=== PATIENT | female | born 1955 | race Caucasian/White ===

== ENCOUNTER → 2017-05-19 | Outpatient (CLI) | payer BC ==
--- NOTE | 2017-05-19 15:24 | US ---
EXAMINATION TYPE: US kidneys/renal and bladder DATE OF EXAM: 05/19/2017 COMPARISON: 05/21/2016 CLINICAL HISTORY: Renal Colic N23. Rt flank pain, h/o ARF EXAM MEASUREMENTS: Right Kidney: 8.3 x 4.0 x 4.2 cm Left Kidney: 8.3 x 4.4 x 5.9 cm *body habitus and bowel gas limits exam Right Kidney: small in size, no hydronephrosis or masses seen Left Kidney: small in size, no hydronephrosis or masses seen Bladder: wnl Bilateral Jets seen: yes Previous right renal cyst is not identified at this time. IMPRESSION: 1. Normal retroperitoneal ultrasound
== END | disposition home or self-care (01) ==
LOC: RADUSWWP 11:27
PROVIDERS: ATTEND Internal Medicine Nephrology
DX: N23 Unspecified renal colic (principal)
CPT/HCPCS: 76770

== ENCOUNTER 2017-06-29 03:48 | Emergency (ER) | payer BC ==
[2017-06-29 03:55] VITALS: RESP 18
[2017-06-29] MEDS ORDERED: ORPHENADRINE 30 MG/ML 2 ML VIAL IM STA (05:12)
[2017-06-29 05:48] LABS: Anisocytosis Slight; Basophils % (A) 0 %; CH 29.7; CHCM 33.4; Eosinophils # (A) 0.2 k/uL (0-0.7); Eosinophils % (A) 2 %; HCT 34.3 % (34.0-46.0); HGB 11.3 gm/dL (11.4-16.0); Luc # (Auto) 0.13; Luc % (Auto) 1; Lymphocytes # (A) 1.4 k/uL (1.0-4.8); Lymphocytes % (A) 14 %; MCH 29.5 pg (25.0-35.0); MCHC 33.1 g/dL (31.0-37.0); MCV 89.1 fL (80.0-100.0); Mean Platelet Volume 8.7; Monocytes # (A) 0.8 k/uL (0-1.0); Monocytes % (A) 8 %; Neutrophils # (A) 7.4 k/uL (1.3-7.7); Neutrophils % (A) 75 %; RBC 3.85 m/uL (3.80-5.40); RDW 16.2 % (11.5-15.5); WBC 9.9 k/uL (3.8-10.6); WBC (Perox) 10.52
[2017-06-29 06:14] LABS: Calcium 8.8 mg/dL (8.4-10.2); Magnesium 1.3 mg/dL (1.6-2.3); Potassium 4.1 mmol/L (3.5-5.1)
[2017-06-29] MEDS ORDERED: MAGNESIUM SULFATE-D5W PMX 1 GM in DEXTROSE/WATER 1 100ML.BAG IVPB ONE (06:30)
--- NOTE | 2017-06-29 07:54 | ED ---
Back Pain HPI - General Chief Complaint: Back Pain/Injury Stated Complaint: lower back pain Time Seen by Provider: 06/29/17 04:13 Source: patient Limitations: no limitations - History of Present Illness MD Complaint: back pain -: hour(s) Similar Symptoms Previously: Yes Place: home Radiation: none Severity: moderate Quality: other Consistency: intermittent (Spasms) Improves With: immobilization Worsens With: movement Context: turning/twisting, bending Associated Symptoms: denies other symptoms - Related Data Home Medications Medication Instructions Recorded Confirmed Atorvastatin [Lipitor] 40 mg PO HS 06/01/14 07/13/17 Insulin Aspart [NovoLOG] See Protocol SQ-PUMP CONTINUOUS 05/27/15 07/13/17 Furosemide [Lasix] 40 mg PO DAILY 04/08/16 07/13/17 Magnesium Oxide [Mag-Ox] 400 mg PO QAM 04/08/16 07/13/17 Potassium Chloride ER [K-Dur 10] 10 meq PO DAILY PRN 04/08/16 07/13/17 amLODIPine [Norvasc] 5 mg PO QAM 07/06/16 07/13/17 Ergocalciferol (Vitamin D2) 50,000 unit PO Q30D 07/13/16 07/13/17 [Drisdol] Warfarin Sodium [Warfarin Sodium] 6 mg PO SUMOTUWEFRSA 07/13/17 07/13/17 Warfarin Sodium [Warfarin Sodium] 8 mg PO TH 07/13/17 07/13/17 Allergies Allergy/AdvReac Type Severity Reaction Status Date / Time azithromycin Allergy Unknown Rash/Hives Verified 07/13/17 11:06 amoxicillin Allergy Rash/Hives Verified 07/13/17 11:06 Review of Systems ROS Statement: Those systems with pertinent positive or pertinent negative responses have been documented in the HPI. ROS Other: All systems not noted in ROS Statement are negative. Constitutional: Denies: fever, chills, weakness Respiratory: Denies: cough, dyspnea Cardiovascular: Denies: chest pain Gastrointestinal: Denies: abdominal pain, nausea, vomiting, diarrhea, constipation Genitourinary: Denies: dysuria, hematuria Musculoskeletal: Reports: as per HPI, back pain, myalgia. Denies: joint swelling, arthralgia Skin: Denies: rash Neurological: Denies: weakness, numbness, paresthesias, abnormal gait Past Medical History Past Medical History: Coronary Artery Disease (CAD), Diabetes Mellitus, Deep Vein Thrombosis (DVT), Hyperlipidemia, Hypertension, Pulmonary Embolus (PE), Renal Disease Additional Past Medical History / Comment(s): Vitamin D Deficency, pt has insulin pump History of Any Multi-Drug Resistant Organisms: None Reported Past Surgical History: Appendectomy, Cholecystectomy Additional Past Surgical History / Comment(s): Breast Biopsy, Carapal tunnel to right hand, Heart Catherization, colonoscopy 08/2014 Past Anesthesia/Blood Transfusion Reactions: No Reported Reaction Past Psychological History: No Psychological Hx Reported Smoking Status: Never smoker - Past Family History Mother Additional Family Medical History / Comment(s): heart disease Father Additional Family Medical History / Comment(s): heart disease General Exam Limitations: no limitations General appearance: alert, in no apparent distress Head exam: Present: atraumatic, normocephalic Neck exam: Present: normal inspection, full ROM. Absent: tenderness, meningismus Respiratory exam: Present: normal lung sounds bilaterally. Absent: respiratory distress, wheezes, rales, rhonchi, stridor Cardiovascular Exam: Present: regular rate, normal rhythm, normal heart sounds GI/Abdominal exam: Present: soft. Absent: tenderness, guarding, rebound, normal bowel sounds Extremities exam: Present: normal inspection, normal capillary refill. Absent: pedal edema, calf tenderness Back exam: Present: normal inspection, muscle spasm, paraspinal tenderness. Absent: CVA tenderness (R), CVA tenderness (L), vertebral tenderness Neurological exam: Present: alert, normal gait, reflexes normal. Absent: motor sensory deficit Skin exam: Present: warm, dry, intact, normal color. Absent: rash Course Vital Signs 06/29/17 06/29/17 03:53 08:18 Temperature 97.7 F 98.5 F Pulse Rate 73 76 Respiratory 18 18 Rate Blood Pressure 186/78 156/70 O2 Sat by Pulse 99 99 Oximetry Medical Decision Making - Lab Data Result diagrams: 06/29/17 05:40 06/29/17 05:40 Lab Results 06/29/17 06/29/17 Range/Units 05:40 05:40 WBC 9.9 (3.8-10.6) k/uL RBC 3.85 (3.80-5.40) m/uL Hgb 11.3 L (11.4-16.0) gm/dL Hct 34.3 (34.0-46.0) % MCV 89.1 (80.0-100.0) fL MCH 29.5 (25.0-35.0) pg MCHC 33.1 (31.0-37.0) g/dL RDW 16.2 H (11.5-15.5) % Plt Count 223 (150-450) k/uL Neutrophils % 75 % Lymphocytes % 14 % Monocytes % 8 % Eosinophils % 2 % Basophils % 0 % Neutrophils # 7.4 (1.3-7.7) k/uL Lymphocytes # 1.4 (1.0-4.8) k/uL Monocytes # 0.8 (0-1.0) k/uL Eosinophils # 0.2 (0-0.7) k/uL Basophils # 0.0 (0-0.2) k/uL Anisocytosis Slight Sodium 142 (137-145) mmol/L Potassium 4.1 (3.5-5.1) mmol/L Chloride 101 (98-107) mmol/L Carbon Dioxide 29 (22-30) mmol/L Anion Gap 12 mmol/L BUN 46 H (7-17) mg/dL Creatinine 2.33 H (0.52-1.04) mg/dL Est GFR (MDRD) Af Amer 25 (>60 ml/min/1.73 sqM) Est GFR (MDRD) Non-Af 21 (>60 ml/min/1.73 sqM) Glucose 130 H (74-99) mg/dL Calcium 8.8 (8.4-10.2) mg/dL Magnesium 1.3 L (1.6-2.3) mg/dL Disposition Clinical Impression: Back muscle spasm, Hypomagnesemia Disposition: HOME SELF-CARE Condition: Good Instructions: Hypomagnesemia (ED), Muscle Spasm (ED) Referrals: Libia Bhatt DO [Primary Care Provider] - 1-2 days
[2017-06-29 08:19] VITALS: BP 156/70; PULSE 76; TEMP 98.5
--- NOTE | 2017-07-01 07:32 | CDI ---
Documentation Clarification OP Dear Seamus ORTEGA MD Please do addendum to ED report for HPI and physical exam. Thank you, Marva [employer] Safety Program Coordinator If you have any question, Please contact manager internal at [phone] [facility]
== END 2017-06-29 08:19 | disposition home or self-care (01) ==
LOC: EC 03:48
DX: M62.830 Muscle spasm of back (principal); E83.42 Hypomagnesemia; I25.10 Atherosclerotic heart disease of native coronary artery without angina pectoris; E11.9 Type 2 diabetes mellitus without complications; E78.5 Hyperlipidemia, unspecified; I10 Essential (primary) hypertension; Z86.73 Personal history of transient ischemic attack (TIA), and cerebral infarction without residual deficits; Z86.711 Personal history of pulmonary embolism; Z79.01 Long term (current) use of anticoagulants; Z79.4 Long term (current) use of insulin; Z79.899 Other long term (current) drug therapy; Z88.0 Allergy status to penicillin; Z88.1 Allergy status to other antibiotic agents
CPT/HCPCS: 36415; 80048; 83735; 85025; 99283; 96372; J2360; J3475

== ENCOUNTER 2017-07-13 09:51 | Emergency (ER) | payer BC ==
[2017-07-13] MEDS ORDERED: SODIUM CHLORIDE 0.9% 500 ML IV STA (10:33)
--- NOTE | 2017-07-13 10:39 | ED ---
General Adult HPI - General Chief complaint: Abdominal Pain Stated complaint: Rt rib and side pain Time Seen by Provider: 07/13/17 10:23 Source: patient, RN notes reviewed Mode of arrival: ambulatory Limitations: no limitations - History of Present Illness Initial comments: 62-year-old female presents to the emergency department with a chief complaint of right sided abdominal pain and rib pain. Patient states she woke up around 5 :00 this morning with this. Patient denies any falls traumas or injuries. Patient states if she takes a big deep breath she causes the pain to be worse. Patient states that only one area hurts to touch. Patient denies any cough cold or runny nose. Patient denies any shortness of breath. Patient denies any fever or chills. Patient denies any nausea or vomiting. Patient denies any changes in urination. Patient states she has had a history of PEs in the past but states that this does not feel like that. Patient states that she was concerned due to her symptoms so she thought that she should be evaluated. Patient denies any recent fever, chills, shortness of breath, nausea vomiting, numbness or tingling, dysuria or hematuria, constipation or diarrhea, headaches or visual changes, or any other current symptoms. - Related Data Home Medications Medication Instructions Recorded Confirmed Atorvastatin [Lipitor] 40 mg PO HS 06/01/14 07/13/17 Insulin Aspart [NovoLOG] See Protocol SQ-PUMP CONTINUOUS 05/27/15 07/13/17 Furosemide [Lasix] 40 mg PO DAILY 04/08/16 07/13/17 Magnesium Oxide [Mag-Ox] 400 mg PO QAM 04/08/16 07/13/17 Potassium Chloride ER [K-Dur 10] 10 meq PO DAILY PRN 04/08/16 07/13/17 amLODIPine [Norvasc] 5 mg PO QAM 07/06/16 07/13/17 Ergocalciferol (Vitamin D2) 50,000 unit PO Q30D 07/13/16 07/13/17 [Drisdol] Warfarin Sodium [Warfarin Sodium] 6 mg PO SUMOTUWEFRSA 07/13/17 07/13/17 Warfarin Sodium [Warfarin Sodium] 8 mg PO TH 07/13/17 07/13/17 Allergies Allergy/AdvReac Type Severity Reaction Status Date / Time azithromycin Allergy Unknown Rash/Hives Verified 07/13/17 11:06 amoxicillin Allergy Rash/Hives Verified 07/13/17 11:06 Review of Systems ROS Statement: Those systems with pertinent positive or pertinent negative responses have been documented in the HPI. ROS Other: All systems not noted in ROS Statement are negative. Past Medical History Past Medical History: Coronary Artery Disease (CAD), Diabetes Mellitus, Deep Vein Thrombosis (DVT), Hyperlipidemia, Hypertension, Pulmonary Embolus (PE), Renal Disease Additional Past Medical History / Comment(s): Vitamin D Deficency, pt has insulin pump History of Any Multi-Drug Resistant Organisms: None Reported Past Surgical History: Appendectomy, Cholecystectomy Additional Past Surgical History / Comment(s): Breast Biopsy, Carapal tunnel to right hand, Heart Catherization, colonoscopy 08/2014 Past Anesthesia/Blood Transfusion Reactions: No Reported Reaction Past Psychological History: No Psychological Hx Reported Smoking Status: Never smoker Past Alcohol Use History: None Reported Past Drug Use History: None Reported - Past Family History Mother Additional Family Medical History / Comment(s): heart disease Father Additional Family Medical History / Comment(s): heart disease General Exam - General Exam Comments Initial Comments: General: The patient is awake and alert, in no distress, and does not appear acutely ill. Eye: Pupils are equal, round and reactive to light, extra-ocular movements are intact; there is normal conjunctiva bilaterally. No signs of icterus. Ears, nose, mouth and throat: There are moist mucous membranes and no oral lesions. Neck: The neck is supple, there is no tenderness. Cardiovascular: There is a regular rate and rhythm. No murmur, rub or gallop is appreciated. Respiratory: Lungs are clear to auscultation, respirations are non-labored, breath sounds are equal. No wheezes, stridor, rales, or rhonchi. Gastrointestinal: Soft, non-distended, minimal point tenderness to the right side of the abdomen. abdomen without masses or organomegaly noted. There is no rebound or guarding present. No CVA tenderness. Bowel sounds are unremarkable. Back: There is no tenderness to palpation in the midline. There is no obvious deformity. No rashes noted. Musculoskeletal: Normal ROM, no tenderness, There is no pedal edema. There is no calf tenderness or swelling. Sensation intact. Pulses equal bilaterally 2+. Neurological: CN II-XII intact, There are no obvious motor or sensory deficits. Coordination appears grossly intact. Speech is normal. Skin: Skin is warm and dry and no rashes or lesions are noted. Psychiatric: Cooperative, appropriate mood & affect, normal judgment. Limitations: no limitations Course Vital Signs 07/13/17 10:20 Temperature 97.2 F L Pulse Rate 79 Respiratory 20 Rate Blood Pressure 133/63 O2 Sat by Pulse 98 Oximetry EKG Findings - EKG Comments: EKG Findings:: normal sinus rhythm 69 bpm, normal axis, no atopy, no S-T depressions or elevations, Medical Decision Making - Medical Decision Making 62-year-old female presents to the emergency department with a chief complaint of right-sided pain. At this time patient's lab work ultrasound and x-ray reviewed. Patient's d-dimer is negative as well as her Coumadin with any appropriate range. At this time there was found to be elevated liver enzymes which we discussed with the patient. Ultrasound showing fatty liver infiltration. This time we discussed follow-up with Dr. Hernandez. We did discuss return parameters and the importance of follow-up and all the patient's questions. She stated that she understood and all questions have been answered. She will be discharged. - Lab Data Result diagrams: 07/13/17 10:48 07/13/17 10:48 Lab Results 07/13/17 07/13/17 07/13/17 Range/Units 10:48 10:48 10:48 WBC 10.6 (3.8-10.6) k/uL RBC 3.99 (3.80-5.40) m/uL Hgb 12.0 (11.4-16.0) gm/dL Hct 35.1 (34.0-46.0) % MCV 88.0 (80.0-100.0) fL MCH 30.0 (25.0-35.0) pg MCHC 34.1 (31.0-37.0) g/dL RDW 15.6 H (11.5-15.5) % Plt Count 244 (150-450) k/uL Neutrophils % 78 % Lymphocytes % 11 % Monocytes % 9 % Eosinophils % 1 % Basophils % 0 % Neutrophils # 8.2 H (1.3-7.7) k/uL Lymphocytes # 1.2 (1.0-4.8) k/uL Monocytes # 0.9 (0-1.0) k/uL Eosinophils # 0.1 (0-0.7) k/uL Basophils # 0.0 (0-0.2) k/uL PT 23.2 H (9.0-12.0) sec INR 2.4 H (<1.2) APTT 21.8 L (22.0-30.0) sec D-Dimer 0.49 (<0.60) mg/L FEU Sodium 143 (137-145) mmol/L Potassium 3.8 (3.5-5.1) mmol/L Chloride 102 (98-107) mmol/L Carbon Dioxide 26 (22-30) mmol/L Anion Gap 15 mmol/L BUN 47 H (7-17) mg/dL Creatinine 2.54 H (0.52-1.04) mg/dL Est GFR (MDRD) Af Amer 23 (>60 ml/min/1.73 sqM) Est GFR (MDRD) Non-Af 19 (>60 ml/min/1.73 sqM) Glucose 137 H (74-99) mg/dL Calcium 9.4 (8.4-10.2) mg/dL Total Bilirubin 0.9 (0.2-1.3) mg/dL AST 549 H (14-36) U/L ALT 275 H (9-52) U/L Alkaline Phosphatase 367 H (38-126) U/L Total Protein 7.0 (6.3-8.2) g/dL Albumin 4.0 (3.5-5.0) g/dL Amylase 39 (30-110) U/L Lipase 74 (23-300) U/L Urine Color Urine Appearance (Clear) Urine pH (5.0-8.0) Ur Specific [place] (1.001-1.035) Urine Protein (Negative) Urine Glucose (UA) (Negative) Urine Ketones (Negative) Urine Blood (Negative) Urine Nitrite (Negative) Urine Bilirubin (Negative) Urine Urobilinogen (<2.0) mg/dL Ur Leukocyte Esterase (Negative) Hepatitis A IgM Ab Hep Bs Antigen Hep B Core IgM Ab Hep C IgG Ab (Negative) 07/13/17 07/13/17 Range/Units 10:48 10:48 WBC (3.8-10.6) k/uL RBC (3.80-5.40) m/uL Hgb (11.4-16.0) gm/dL Hct (34.0-46.0) % MCV (80.0-100.0) fL MCH (25.0-35.0) pg MCHC (31.0-37.0) g/dL RDW (11.5-15.5) % Plt Count (150-450) k/uL Neutrophils % % Lymphocytes % % Monocytes % % Eosinophils % % Basophils % % Neutrophils # (1.3-7.7) k/uL Lymphocytes # (1.0-4.8) k/uL Monocytes # (0-1.0) k/uL Eosinophils # (0-0.7) k/uL Basophils # (0-0.2) k/uL PT (9.0-12.0) sec INR (<1.2) APTT (22.0-30.0) sec D-Dimer (<0.60) mg/L FEU Sodium (137-145) mmol/L Potassium (3.5-5.1) mmol/L Chloride (98-107) mmol/L Carbon Dioxide (22-30) mmol/L Anion Gap mmol/L BUN (7-17) mg/dL Creatinine (0.52-1.04) mg/dL Est GFR (MDRD) Af Amer (>60 ml/min/1.73 sqM) Est GFR (MDRD) Non-Af (>60 ml/min/1.73 sqM) Glucose (74-99) mg/dL Calcium (8.4-10.2) mg/dL Total Bilirubin (0.2-1.3) mg/dL AST (14-36) U/L ALT (9-52) U/L Alkaline Phosphatase (38-126) U/L Total Protein (6.3-8.2) g/dL Albumin (3.5-5.0) g/dL Amylase (30-110) U/L Lipase (23-300) U/L Urine Color Light Yellow Urine Appearance Clear (Clear) Urine pH 5.0 (5.0-8.0) Ur Specific [place] 1.005 (1.001-1.035) Urine Protein Negative (Negative) Urine Glucose (UA) Negative (Negative) Urine Ketones Negative (Negative) Urine Blood Negative (Negative) Urine Nitrite Negative (Negative) Urine Bilirubin Negative (Negative) Urine Urobilinogen <2.0 (<2.0) mg/dL Ur Leukocyte Esterase Negative (Negative) Hepatitis A IgM Ab NEGATIVE Hep Bs Antigen Negative Hep B Core IgM Ab NEGATIVE Hep C IgG Ab Negative (Negative) - Radiology Data Radiology results: report reviewed, image reviewed Disposition Clinical Impression: Fatty liver, Elevated liver enzymes Disposition: HOME SELF-CARE Condition: Stable Instructions: Non-Alcoholic Fatty Liver Disease (ED) Additional Instructions: Please use medication as discussed. Please follow up with family doctor if symptoms have not improved over the next two days. Please return to the emergency room if your symptoms increase or worsen or for any other concerns. Referrals: Libia Bhatt DO [Primary Care Provider] - 1-2 days Krista Das MD [STAFF PHYSICIAN] - 1-2 days Time of Disposition: 12:42
[2017-07-13 11:07] LABS: Appearance,Urine Clear (Clear); Bilirubin,Urine Negative (Negative); Glucose,Urine (UA) Negative (Negative); Ketones,Urine Negative (Negative); Leukocyte Esterase,Urine Negative (Negative); Nitrite,Urine Negative (Negative); Protein,Urine Negative (Negative); Specific Gravity,Urine 1.005 (1.001-1.035); UA Billing (MACRO vs. MICRO) CHEM; Urobilinogen,Urine <2.0 mg/dL (<2.0)
[2017-07-13 11:09] LABS: Basophils % (A) 0 %; CH 29.2; CHCM 33.3; Eosinophils # (A) 0.1 k/uL (0-0.7); Eosinophils % (A) 1 %; HCT 35.1 % (34.0-46.0); HDW 2.43; Luc # (Auto) 0.22; Luc % (Auto) 2; Lymphocytes # (A) 1.2 k/uL (1.0-4.8); Lymphocytes % (A) 11 %; MCHC 34.1 g/dL (31.0-37.0); Mean Platelet Volume 7.9; Monocytes # (A) 0.9 k/uL (0-1.0); Monocytes % (A) 9 %; Neutrophils # (A) 8.2 k/uL (1.3-7.7); Neutrophils % (A) 78 %; RBC 3.99 m/uL (3.80-5.40); RDW 15.6 % (11.5-15.5); WBC 10.6 k/uL (3.8-10.6); WBC (Perox) 10.83
[2017-07-13 11:20] LABS: Calcium 9.4 mg/dL (8.4-10.2); Potassium 3.8 mmol/L (3.5-5.1); Total Bilirubin 0.9 mg/dL (0.2-1.3)
--- NOTE | 2017-07-13 11:31 | XR ---
EXAMINATION TYPE: XR chest 2V DATE OF EXAM: 07/13/2017 COMPARISON: 01/06/2016 HISTORY: 62-year-old female with cough TECHNIQUE: PA and lateral views FINDINGS: Heart is upper limits of normal in size. Aorta within normal limits. Pulmonary vasculature appears no rmal. Mild central interstitial prominence. No yobany consolidation or pleural effusion. IMPRESSION: Some mild central interstitial prominence could represent bronchitis or chronic asthma. No focal infi ltrate.
[2017-07-13 11:34] LABS: INR 2.4 (<1.2); Prothrombin Time 23.2 sec (9.0-12.0)
[2017-07-13 11:41] LABS: Partial Thromboplastin Time 21.8 sec (22.0-30.0)
[2017-07-13 12:17] LABS: Hepatitis B Surface Ag Index 0.05
--- NOTE | 2017-07-13 12:19 | US ---
EXAMINATION TYPE: US abdomen limited DATE OF EXAM: 07/13/2017 COMPARISON: US kidneys 05/19/2017 CLINICAL HISTORY: RUQ. Pain EXAM MEASUREMENTS: Liver Length: 13.8 cm Gallbladder Wall: Surgically absent cm CBD: 0.2 cm Right Kidney: 9.1 x 4.0 x 4.0 cm Morbidly obese patient with extensive midline bowel gas, limiting study and making it technically dif ficult. Pancreas: Obscured by bowel gas Liver: Increased attenuation, decreased visualization of vessels suggestive of fatty infiltrate and the liver is poorly penetrated by the ultrasound being Gallbladder: Surgically absent Evidence for sonographic So's sign: No CBD: wnl Right Kidney: No hydronephrosis or masses seen, very limited visualization There is no ascites. IMPRESSION: Exam is limited. Probable fatty infiltration of the liver. Postop change.
[2017-07-13 12:22] LABS: Hepatitis B Core IgM Index 0.03
[2017-07-13 12:34] LABS: Hepatitis C Virus IgG Ab Negative (Negative); Hepatitis C Virus IgG Index 0.02
[2017-07-13 13:04] VITALS: BP 170/78; PULSE 65; RESP 18; TEMP 98.5
== END 2017-07-13 13:03 | disposition home or self-care (01) ==
LOC: EC 09:51
DX: K76.0 Fatty (change of) liver, not elsewhere classified (principal); R74.8 Abnormal levels of other serum enzymes; I25.10 Atherosclerotic heart disease of native coronary artery without angina pectoris; E11.9 Type 2 diabetes mellitus without complications; E78.5 Hyperlipidemia, unspecified; I10 Essential (primary) hypertension; Z86.711 Personal history of pulmonary embolism; Z86.718 Personal history of other venous thrombosis and embolism; Z90.49 Acquired absence of other specified parts of digestive tract; Z79.01 Long term (current) use of anticoagulants; Z79.4 Long term (current) use of insulin; Z79.899 Other long term (current) drug therapy; Z88.0 Allergy status to penicillin; Z88.1 Allergy status to other antibiotic agents
CPT/HCPCS: 36415; 71020; 76705; 80053; 80074; 81003; 82150; 83690; 85025; 85379; 85610; 85730; 87086; 93005; 96360; 99284

== ENCOUNTER 2017-07-19 16:42 | Inpatient (IN) | payer BC ==
[2017-07-19] MEDS ORDERED: SODIUM CHLORIDE 0.9% 1,000 ML IV STA ×2 (18:04→21:14)
[2017-07-19] MEDS ORDERED: RX INFO: IV CONTRAST WAS GIVEN 1 EACH MISC MISCELLANE PRN (18:04)
--- NOTE | 2017-07-19 18:06 | ED ---
General Adult HPI - General Chief complaint: Shortness of Breath Stated complaint: SOB Time Seen by Provider: 07/19/17 17:53 Source: patient, RN notes reviewed Mode of arrival: wheelchair Limitations: no limitations - History of Present Illness Initial comments: Patient is a pleasant 62-year-old female presenting to the emergency department complaining of abdominal discomfort. Onset was prior to arrival. Discomfort was right upper abdomen. Patient had severe discomfort that is now mild. Patient felt short of breath when discomfort was severe. No shortness of breath at this time. Patient did have similar symptoms 1 week ago. Patient has previously had her gallbladder removed. No chest pain. No fever or vomiting. - Related Data Home Medications Medication Instructions Recorded Confirmed Furosemide [Lasix] 40 mg PO DAILY 04/08/16 07/19/17 Magnesium Oxide [Mag-Ox] 400 mg PO QAM 04/08/16 07/19/17 amLODIPine [Norvasc] 5 mg PO QAM 07/06/16 07/19/17 Ergocalciferol (Vitamin D2) 50,000 unit PO Q30D 07/13/16 07/19/17 [Drisdol] Warfarin Sodium [Warfarin Sodium] 6 mg PO SUMOTUWEFRSA 07/13/17 07/19/17 Warfarin Sodium [Warfarin Sodium] 8 mg PO TH 07/13/17 07/19/17 Calcitriol 0.5 mcg PO DAILY 07/19/17 07/19/17 Insulin Aspart (For Pump) [NovoLOG 0.01 unit SQ-PUMP CONTINUOUS 07/19/17 (For Pump)] Allergies Allergy/AdvReac Type Severity Reaction Status Date / Time azithromycin Allergy Unknown Rash/Hives Verified 07/19/17 17:46 amoxicillin Allergy Rash/Hives Verified 07/19/17 17:46 Review of Systems ROS Statement: Those systems with pertinent positive or pertinent negative responses have been documented in the HPI. ROS Other: All systems not noted in ROS Statement are negative. Constitutional: Denies: fever Eyes: Denies: eye pain ENT: Denies: ear pain Respiratory: Reports: dyspnea (Resolved). Denies: cough Cardiovascular: Denies: chest pain Endocrine: Denies: fatigue Gastrointestinal: Reports: abdominal pain. Denies: nausea, vomiting Genitourinary: Denies: dysuria Musculoskeletal: Denies: back pain Skin: Denies: rash Neurological: Denies: weakness Past Medical History Past Medical History: Coronary Artery Disease (CAD), Diabetes Mellitus, Deep Vein Thrombosis (DVT), Hyperlipidemia, Hypertension, Pulmonary Embolus (PE), Renal Disease Additional Past Medical History / Comment(s): Vitamin D Deficency, pt has insulin pump, elevated liver enzymes History of Any Multi-Drug Resistant Organisms: None Reported Past Surgical History: Appendectomy, Cholecystectomy Additional Past Surgical History / Comment(s): Breast Biopsy, Carapal tunnel to right hand, Heart Catherization, colonoscopy 08/2014 Past Anesthesia/Blood Transfusion Reactions: No Reported Reaction Past Psychological History: No Psychological Hx Reported Smoking Status: Never smoker Past Alcohol Use History: None Reported Past Drug Use History: None Reported - Past Family History Mother Additional Family Medical History / Comment(s): heart disease Father Additional Family Medical History / Comment(s): heart disease General Exam Limitations: no limitations General appearance: alert, in no apparent distress Head exam: Present: atraumatic Eye exam: Present: normal appearance, PERRL ENT exam: Present: normal oropharynx Neck exam: Present: normal inspection Respiratory exam: Present: normal lung sounds bilaterally. Absent: respiratory distress Cardiovascular Exam: Present: regular rate, normal rhythm Expanded Peripheral pulses: 2+: Radial (R), Radial (L), Dorsalis Pedis (R), Dorsalis Pedis (L) GI/Abdominal exam: Present: soft, normal bowel sounds. Absent: distended, tenderness, guarding, rebound, rigid, pulsatile mass Extremities exam: Present: normal inspection. Absent: pedal edema, calf tenderness Neurological exam: Present: alert Psychiatric exam: Present: normal affect, normal mood Skin exam: Present: normal color Course Vital Signs 07/19/17 07/19/17 07/19/17 16:46 18:26 19:08 Temperature 97.6 F Pulse Rate 87 76 85 Respiratory 18 17 17 Rate Blood Pressure 154/68 160/63 O2 Sat by Pulse 96 97 97 Oximetry 07/19/17 07/19/17 07/19/17 19:32 20:28 20:41 Temperature 100.4 F H 101.5 F H Pulse Rate 92 102 H Respiratory 22 Rate Blood Pressure 145/61 O2 Sat by Pulse 96 93 L Oximetry - Reevaluation(s) Reevaluation #1: 07/19/17 21:04 Patient does meet criteria for sepsis at 9 PM. EKG Findings - EKG Comments: EKG Findings:: Normal sinus rhythm 74. MD 150. QRS 88. QT 388. QTC 4:30. Normal axis. Normal QRS. No acute ST change. Medical Decision Making - Medical Decision Making Patient reevaluated and has continued vomiting. Patient was updated on results. Patient states he has previously seen Dr. Hernandez and Dr. De La Paz who will be consulted. Dr. Hernandez has been paged. [facility] has been paged for hospital call. - Lab Data Result diagrams: 07/19/17 18:15 07/19/17 18:15 Lab Results 07/19/17 07/19/17 07/19/17 Range/Units 18:15 18:15 18:15 WBC 9.0 (3.8-10.6) k/uL RBC 4.02 (3.80-5.40) m/uL Hgb 11.8 (11.4-16.0) gm/dL Hct 35.6 (34.0-46.0) % MCV 88.8 (80.0-100.0) fL MCH 29.5 (25.0-35.0) pg MCHC 33.2 (31.0-37.0) g/dL RDW 15.7 H (11.5-15.5) % Plt Count 247 (150-450) k/uL Neutrophils % 78 % Lymphocytes % 13 % Monocytes % 6 % Eosinophils % 1 % Basophils % 0 % Neutrophils # 7.1 (1.3-7.7) k/uL Lymphocytes # 1.2 (1.0-4.8) k/uL Monocytes # 0.5 (0-1.0) k/uL Eosinophils # 0.1 (0-0.7) k/uL Basophils # 0.0 (0-0.2) k/uL PT (9.0-12.0) sec INR (<1.2) APTT (22.0-30.0) sec Sodium 138 (137-145) mmol/L Potassium 4.1 (3.5-5.1) mmol/L Chloride 96 L (98-107) mmol/L Carbon Dioxide 29 (22-30) mmol/L Anion Gap 13 mmol/L BUN 42 H (7-17) mg/dL Creatinine 2.19 H (0.52-1.04) mg/dL Est GFR (MDRD) Af Amer 27 (>60 ml/min/1.73 sqM) Est GFR (MDRD) Non-Af 23 (>60 ml/min/1.73 sqM) Glucose 299 H (74-99) mg/dL Calcium 8.7 (8.4-10.2) mg/dL Total Bilirubin 1.1 (0.2-1.3) mg/dL AST 353 H (14-36) U/L ALT 257 H (9-52) U/L Alkaline Phosphatase 686 H (38-126) U/L Total Creatine Kinase 69 (30-135) U/L CK-MB (CK-2) 0.6 (0.0-2.4) ng/mL CK-MB (CK-2) Rel Index 0.9 Troponin I <0.012 (0.000-0.034) ng/mL Total Protein 6.6 (6.3-8.2) g/dL Albumin 3.9 (3.5-5.0) g/dL Amylase 38 (30-110) U/L Lipase 79 (23-300) U/L Urine Color Urine Appearance (Clear) Urine pH (5.0-8.0) Ur Specific [place] (1.001-1.035) Urine Protein (Negative) Urine Glucose (UA) (Negative) Urine Ketones (Negative) Urine Blood (Negative) Urine Nitrite (Negative) Urine Bilirubin (Negative) Urine Urobilinogen (<2.0) mg/dL Ur Leukocyte Esterase (Negative) 07/19/17 07/19/17 Range/Units 18:15 18:15 WBC (3.8-10.6) k/uL RBC (3.80-5.40) m/uL Hgb (11.4-16.0) gm/dL Hct (34.0-46.0) % MCV (80.0-100.0) fL MCH (25.0-35.0) pg MCHC (31.0-37.0) g/dL RDW (11.5-15.5) % Plt Count (150-450) k/uL Neutrophils % % Lymphocytes % % Monocytes % % Eosinophils % % Basophils % % Neutrophils # (1.3-7.7) k/uL Lymphocytes # (1.0-4.8) k/uL Monocytes # (0-1.0) k/uL Eosinophils # (0-0.7) k/uL Basophils # (0-0.2) k/uL PT 24.3 H (9.0-12.0) sec INR 2.5 H (<1.2) APTT 26.3 (22.0-30.0) sec Sodium (137-145) mmol/L Potassium (3.5-5.1) mmol/L Chloride (98-107) mmol/L Carbon Dioxide (22-30) mmol/L Anion Gap mmol/L BUN (7-17) mg/dL Creatinine (0.52-1.04) mg/dL Est GFR (MDRD) Af Amer (>60 ml/min/1.73 sqM) Est GFR (MDRD) Non-Af (>60 ml/min/1.73 sqM) Glucose (74-99) mg/dL Calcium (8.4-10.2) mg/dL Total Bilirubin (0.2-1.3) mg/dL AST (14-36) U/L ALT (9-52) U/L Alkaline Phosphatase (38-126) U/L Total Creatine Kinase (30-135) U/L CK-MB (CK-2) (0.0-2.4) ng/mL CK-MB (CK-2) Rel Index Troponin I (0.000-0.034) ng/mL Total Protein (6.3-8.2) g/dL Albumin (3.5-5.0) g/dL Amylase (30-110) U/L Lipase (23-300) U/L Urine Color Light Yellow Urine Appearance Clear (Clear) Urine pH 5.5 (5.0-8.0) Ur Specific [place] 1.005 (1.001-1.035) Urine Protein Negative (Negative) Urine Glucose (UA) 3+ H (Negative) Urine Ketones Negative (Negative) Urine Blood Negative (Negative) Urine Nitrite Negative (Negative) Urine Bilirubin Negative (Negative) Urine Urobilinogen <2.0 (<2.0) mg/dL Ur Leukocyte Esterase Negative (Negative) - Radiology Data Radiology results: report reviewed (Computed tomography scan of the abdomen pelvis has concern for possible choledocholithiasis), image reviewed (Chest x- ray shows slight bulkiness right inferior hilum clearly related to prominent vessels.) Critical Care Time Critical Care Time: Yes Total Critical Care Time: 32 Disposition Clinical Impression: Choledocholithiasis, Sepsis Disposition: ADMITTED IP TO THIS HOSP Condition: Serious Referrals: Libia Bhatt DO [Primary Care Provider] - 1-2 days Decision Time: 21:05
[2017-07-19 18:30] LABS: Basophils % (A) 0 %; CHCM 32.8; Eosinophils # (A) 0.1 k/uL (0-0.7); Eosinophils % (A) 1 %; HCT 35.6 % (34.0-46.0); HDW 2.41; HGB 11.8 gm/dL (11.4-16.0); Luc # (Auto) 0.14; Luc % (Auto) 2; Lymphocytes # (A) 1.2 k/uL (1.0-4.8); Lymphocytes % (A) 13 %; MCH 29.5 pg (25.0-35.0); MCHC 33.2 g/dL (31.0-37.0); MCV 88.8 fL (80.0-100.0); Monocytes # (A) 0.5 k/uL (0-1.0); Monocytes % (A) 6 %; Neutrophils # (A) 7.1 k/uL (1.3-7.7); Neutrophils % (A) 78 %; RBC 4.02 m/uL (3.80-5.40); RDW 15.7 % (11.5-15.5); WBC (Perox) 9.43
[2017-07-19 18:35] LABS: Appearance,Urine Clear (Clear); Bilirubin,Urine Negative (Negative); Glucose,Urine (UA) 3+ (Negative); Ketones,Urine Negative (Negative); Leukocyte Esterase,Urine Negative (Negative); Nitrite,Urine Negative (Negative); PH, Urine 5.5 (5.0-8.0); Protein,Urine Negative (Negative); Specific Gravity,Urine 1.005 (1.001-1.035); UA Billing (MACRO vs. MICRO) CHEM; Urobilinogen,Urine <2.0 mg/dL (<2.0)
[2017-07-19 18:43] LABS: Calcium 8.7 mg/dL (8.4-10.2); INR 2.5 (<1.2); Partial Thromboplastin Time 26.3 sec (22.0-30.0); Potassium 4.1 mmol/L (3.5-5.1); Prothrombin Time 24.3 sec (9.0-12.0); Total Bilirubin 1.1 mg/dL (0.2-1.3); Total Protein 6.6 g/dL (6.3-8.2)
--- NOTE | 2017-07-19 18:52 | XR ---
EXAMINATION TYPE: XR chest 2V DATE OF EXAM: 07/19/2017 COMPARISON: 07/13/2017 HISTORY: Short of breath TECHNIQUE: Frontal and lateral views of the chest are obtained. FINDINGS: There is no heart failure nor confluent pneumonic infiltrate. There is some bulkiness of t he inferior right pulmonary hilum that is unchanged. Costophrenic angles are clear. There are chest l naima. IMPRESSION: Slight bulkiness of the right inferior pulmonary hilum is probably due to prominent vess els. Normal heart. No change.
[2017-07-19 18:53] LABS: Creatine Kinase 69 U/L (30-135)
[2017-07-19 19:04] LABS: Creatine Kinase MB 0.6 ng/mL (0.0-2.4); Troponin I <0.012 ng/mL (0.000-0.034)
--- NOTE | 2017-07-19 19:28 | CT ---
EXAMINATION TYPE: CT abdomen pelvis wo con DATE OF EXAM: 07/19/2017 COMPARISON: 12/05/2014 HISTORY: Right sided abdominal pain. CT DLP: 1281.40 mGycm Automated exposure control for dose reduction was used. TECHNIQUE: Helical acquisition of images was performed from the lung bases through the pelvis. FINDINGS: Lung bases are clear of consolidation. There is no pleural effusion. There is no pericardial effusion . There are clips from cholecystectomy. Liver shows no focal defect. There is significant pancreatic atrophy. Spleen appears normal. There are small high density foci in the common bile duct there is co nsistent with choledocholithiasis. There is no hydronephrosis. There is no retroperitoneal adenopathy. There is no ascites. Bladder distends smoothly. I see no pelvic mass. Appendix is not seen. There is no sign of appendicit is. Intrahepatic bile ducts are not dilated. I see no bony destructive process.: IMPRESSION: POSSIBLE CHOLEDOCHOLITHIASIS. NO DEFINITE DILATED DUCTS. HIATAL HERNIA. COMMON DUCT STONES APPEAR NEW COMPARED TO OLD CT SCAN. THERE IS CLEARING OF THE ATELECTASIS AT THE LUNG BASES COMPARED TO OLD EXAM . SIGNIFICANT PANCREATIC ATROPHY.
[2017-07-19] MEDS ORDERED: ONDANSETRON 4 MG/2 ML VIAL IVP STA (20:35)
[2017-07-19] MEDS ORDERED: LEVOFLOXACIN 750MG-D5W PMX 750 MG in DEXTROSE/WATER 1 150ML.BAG IVPB STA (21:05)
[2017-07-19] MEDS ORDERED: metroNIDAZOLE-NS PMX 500 MG in SALINE 1 100ML.BAG IVPB STA (21:05)
[2017-07-19] MEDS ORDERED: SODIUM CHLORIDE 0.9% 1,000 ML IV ONE (21:07)
[2017-07-19] MEDS ORDERED: ACETAMINOPHEN IV (For NPO) 1,000 MG in EMPTY BAG 1 BAG IVPB STA (21:14)
[2017-07-19] MEDS ORDERED: CALCIUM CARBONATE 500 MG CHEWABLE PO PRN (23:16)
[2017-07-19] MEDS ORDERED: HYDROcodone/APAP 5-325MG 1 EACH TAB PO PRN (23:16)
[2017-07-19] MEDS ORDERED: NALOXONE 0.4 MG/ML 1 ML VIAL IV PRN (23:16)
[2017-07-19] MEDS ORDERED: ACETAMINOPHEN TAB 325 MG TAB PO PRN (23:16)
[2017-07-19] MEDS ORDERED: MORPHINE SULFATE 4 MG/ML SYRINGE IV PRN (23:16)
--- NOTE | 2017-07-19 23:16 | P.HPIM ---
History of Present Illness H&P Date: 07/19/17 Chief Complaint: Right upper quadrant abdominal pain 62-year-old female with past medical history of type 2 diabetes mellitus , pulmonary embolism in 2011 after cholecystectomy currently on Coumadin and chronic kidney disease who presented to emergency department with chief complaint of right upper quadrant abdominal pain. This pain started approximately 5-6 days prior to this admission. Patient described pain as moderate to severe in intensity starting in her right side along the [place] area radiates to her back and her epigastric area initially pain was more colicky in nature and today became more constant and more localized in epigastric area. No specific provoking factors. Patient did not try anything for pain. She noticed that deep breaths make pain worse which was then associated with inability to take deep breaths and shortness of breath. She did not find any other provoking factors. Pain has been accompanied by nausea and no vomiting since tonight. Patient was also found to have fever 100.5 and 101.5 orally numbers in the department. Patient denied any changes in his color of the stool or her urine. She denies any fever or chills or sweats at home. She denies any jaundice. 5 years prior to this admission in 2011 patient had cholecystectomy performed in our institution. Subsequently she developed pulmonary embolism and was placed on Coumadin on which she uses currently. Since then she did not have any major problem with her liver or any gastroenterological problems. 5 days prior to this admission she visited the emergency department for above- mentioned pain and ultrasound of the liver showing fatty liver mildly elevated alkaline phosphatase stabilization liver enzymes and normal bilirubin and she was subsequently discharged home. During today's visit she was found to have doubling living of her alk phos levels, stable elevation of liver enzymes and normal bilirubin level. CT of abdomen and pelvis performed today nursing department showed possible choledocholithiasis without defined definitive dilated ductus. Showed some common duct stones that appeared new comparing to previous CAT scans. Patient was admitted for further evaluation by gastroenterology and general surgery Review of Systems Eyes: denies as per HPI (Patient denied any yellow discoloration of the eyes), denies blurred vision, denies pain Ears, nose, mouth and throat: Denies headache, Denies sore throat Cardiovascular: Reports shortness of breath Respiratory: Reports as per HPI, Reports dyspnea, Reports pain on inspiration, Reports pleurisy, Denies cough, Denies cough with sputum, Denies hemoptysis, Denies home oxygen, Denies snoring, Denies wheezing Gastrointestinal: Reports as per HPI Genitourinary: Denies hematuria, Denies urgency, Denies urinary frequency Musculoskeletal: Denies hot joints, Denies morning stiffness, Denies myalgias Integumentary: Denies color changes, Denies pruritus Endocrine: Denies fatigue, Denies flushing, Denies heat intolerance, Denies high blood sugars, Denies polyuria, Denies weight change Hematologic/Lymphatic: Reports easy bleeding Past Medical History Past Medical History: Coronary Artery Disease (CAD), Diabetes Mellitus, Deep Vein Thrombosis (DVT), Hyperlipidemia, Hypertension, Pulmonary Embolus (PE), Renal Disease Additional Past Medical History / Comment(s): Vitamin D Deficency, pt has insulin pump, elevated liver enzymes History of Any Multi-Drug Resistant Organisms: None Reported Past Surgical History: Appendectomy, Cholecystectomy Additional Past Surgical History / Comment(s): Breast Biopsy, Carapal tunnel to right hand, Heart Catherization, colonoscopy 08/2014 Past Anesthesia/Blood Transfusion Reactions: No Reported Reaction Past Psychological History: No Psychological Hx Reported Smoking Status: Never smoker Past Alcohol Use History: None Reported Past Drug Use History: None Reported - Past Family History Mother Family Medical History: No Reported History (No family history of gastrointestinal malignancies or liver disease) Additional Family Medical History / Comment(s): heart disease Father Additional Family Medical History / Comment(s): heart disease Medications and Allergies Home Medications Medication Instructions Recorded Confirmed Type Furosemide [Lasix] 40 mg PO DAILY 04/08/16 07/19/17 History Magnesium Oxide [Mag-Ox] 400 mg PO QAM 04/08/16 07/19/17 History amLODIPine [Norvasc] 5 mg PO QAM 07/06/16 07/19/17 History Ergocalciferol (Vitamin D2) 50,000 unit PO Q30D 07/13/16 07/19/17 History [Drisdol] Warfarin Sodium [Warfarin Sodium] 6 mg PO SUMOTUWEFRSA 07/13/17 07/19/17 History Warfarin Sodium [Warfarin Sodium] 8 mg PO TH 07/13/17 07/19/17 History Calcitriol 0.5 mcg PO DAILY 07/19/17 07/19/17 History Insulin Aspart (For Pump) [NovoLOG 0.01 unit SQ-PUMP CONTINUOUS 07/19/17 History (For Pump)] Allergies Allergy/AdvReac Type Severity Reaction Status Date / Time azithromycin Allergy Unknown Rash/Hives Verified 07/19/17 17:46 amoxicillin Allergy Rash/Hives Verified 07/19/17 17:46 Physical Exam Vitals: Vital Signs Temp Pulse Resp BP Pulse Ox 07/19/17 21:45 101.8 F H 96 18 138/63 95 07/19/17 20:41 101.5 F H 07/19/17 20:28 102 H 22 145/61 93 L 07/19/17 19:32 100.4 F H 92 96 07/19/17 19:08 85 17 160/63 97 07/19/17 18:26 76 17 97 07/19/17 16:46 97.6 F 87 18 154/68 96 Intake and Output 07/19/17 07/19/17 07/19/17 06:59 14:59 22:59 Other: Weight 118.388 kg Patient Weight 07/20/17 06:59 Weight 118.388 kg - Constitutional General appearance: cooperative, no acute distress - EENT Eyes: anicteric sclerae, EOMI, PERRLA ENT: hearing grossly normal, normal oropharynx, no pharyngeal erythema, no tonsillar exudates - Neck Neck: no lymphadenopathy, no normal ROM - Respiratory Respiratory: right: rales (Right base), bilateral: CTA, diminished - Cardiovascular Rhythm: regular Heart sounds: normal: S1, S2 Abnormal Heart Sounds: no systolic murmur, no diastolic murmur leg Peripheral Edema: bilateral: Trace, Pitting - Gastrointestinal General gastrointestinal: normal bowel sounds, no organomegaly, soft, tenderness (Over the inferior margin of the right lower ribs, no abdominal tenderness no rebound or guarding or rigidity) - Integumentary Integumentary: no jaundiced, no rash - Neurologic Neurologic: CNII-XII intact - Psychiatric Psychiatric: A&O x's 3, appropriate affect Results CBC & Chem 7: 07/19/17 18:15 07/19/17 18:15 Labs: Abnormal Lab Results - Last 24 Hours (Table) 07/19/17 07/19/17 07/19/17 Range/Units 18:15 18:15 18:15 RDW 15.7 H (11.5-15.5) % PT 24.3 H (9.0-12.0) sec INR 2.5 H (<1.2) Chloride 96 L (98-107) mmol/L BUN 42 H (7-17) mg/dL Creatinine 2.19 H (0.52-1.04) mg/dL Glucose 299 H (74-99) mg/dL AST 353 H (14-36) U/L ALT 257 H (9-52) U/L Alkaline Phosphatase 686 H (38-126) U/L Urine Glucose (UA) (Negative) 07/19/17 Range/Units 18:15 RDW (11.5-15.5) % PT (9.0-12.0) sec INR (<1.2) Chloride (98-107) mmol/L BUN (7-17) mg/dL Creatinine (0.52-1.04) mg/dL Glucose (74-99) mg/dL AST (14-36) U/L ALT (9-52) U/L Alkaline Phosphatase (38-126) U/L Urine Glucose (UA) 3+ H (Negative) Chest x-ray: report reviewed Abdominal x-ray: report reviewed CT scan - abdomen: report reviewed US - abdomen: report reviewed Thrombosis Risk Factor Assmnt - Choose All That Apply Any of the Below Risk Factors Present?: Yes Each Risk Factor Represents 2 Points: Age 61-74 years Each Risk Factor Represents 3 Points: History of DVT/PE (Currently on Coumadin with therapeutic INR. Coumadin on hold and will need subcu heparin once INR below 2) Thrombosis Risk Factor Assessment Total Risk Factor Score: 5 Thrombosis Risk Factor Assessment Level: High Risk Assessment and Plan (1) Choledocholithiasis Narrative/Plan: GI and general surgery consulted the emergency department discuss case with them Continue levofloxacin/Flagyl Nothing by mouth Pain control Nausea control Status: Acute (2) Type 2 diabetes mellitus, with long-term current use of insulin Narrative/Plan: With stress hyperglycemia Patient will be nothing per mouth We'll order correctional insulin Patient prefers to turn off her insulin pump and have us to further manage her her blood glucose Status: Acute (3) History of pulmonary embolus (PE) Narrative/Plan: Remote history of pulmonary embolism in 2011 Hold Coumadin for possibly ERCP tomorrow The reverse INR We will order subcu heparin once INR below 2 Status: Chronic (4) Diabetic nephropathy Narrative/Plan: Stable creatinine monitor urine output Hold Lasix Plan: Patient is full code and and she identifies her friend Josephine Terrell as DPOA Time with Patient: Greater than 30
[2017-07-19] MEDS ORDERED: PHYTONADIONE ORAL 5 MG/5 ML ORAL.SYRG PO STA (23:27)
[2017-07-19] MEDS ORDERED: SODIUM CHLORIDE 0.9% 1,000 ML IV SCH (23:30)
[2017-07-19] MEDS ORDERED: PHYTONADIONE 5 MG in SODIUM CHLORIDE 0.9% 50 ML IVPB STA (23:32)
[2017-07-20 00:32] LABS: Glucose,Whole Blood 228 mg/dL (75-99)
[2017-07-20 05:52] LABS: Anisocytosis Slight; Basophils % (A) 0 %; Eosinophils % (A) 0 %; HCT 31.8 % (34.0-46.0); HDW 2.38; HGB 10.1 gm/dL (11.4-16.0); Luc # (Auto) 0.19; Luc % (Auto) 1; Lymphocytes # (A) 0.6 k/uL (1.0-4.8); Lymphocytes % (A) 3 %; MCH 29.1 pg (25.0-35.0); MCHC 31.8 g/dL (31.0-37.0); MCV 91.5 fL (80.0-100.0); Mean Platelet Volume 8.6; Monocytes # (A) 1.1 k/uL (0-1.0); Monocytes % (A) 6 %; Neutrophils % (A) 90 %; RBC 3.48 m/uL (3.80-5.40); RDW 16.3 % (11.5-15.5); WBC 17.8 k/uL (3.8-10.6); WBC (Perox) 18.32
[2017-07-20 05:55] LABS: INR 2.5 (<1.2); Prothrombin Time 23.9 sec (9.0-12.0)
[2017-07-20] MEDS ORDERED: metroNIDAZOLE-NS PMX 500 MG in SALINE 1 100ML.BAG IVPB SCH (06:00)
[2017-07-20 06:08] LABS: Calcium 8.1 mg/dL (8.4-10.2); Potassium 4.1 mmol/L (3.5-5.1); Total Bilirubin 1.9 mg/dL (0.2-1.3); Total Protein 5.7 g/dL (6.3-8.2)
[2017-07-20 06:12] LABS: Glucose,Whole Blood 196 mg/dL (75-99)
[2017-07-20] MEDS: INSULIN LISPRO (humaLOG) 300 UNIT/3 ML VIAL SQ SCH ×3 (06:37→17:46)
--- NOTE | 2017-07-20 09:28 | CDI ---
In responding to this query, please exercise your independent professional judgment. The [facility] Coding Staff and Clinical Documentation Specialists appreciate your assistance in clarifying documentation, maintaining compliance with coding guidelines, accurately documenting patients condition and capturing severity of illness. The fact that a question is asked does not imply that any particular answer is desired or expected. Communication forms are a method of clarifying documentation and are not made part of the Legal Health Record. Thank you in advance for your clarification. Last Revision, September 2015 Damián Pulido [address] [place] [address] Documentation Clarification Form Date: 07/20/2017 9:18:00 AM From: Sujatha Ross RN, CCDS Admit Date: 07/19/2017 9:03:00 PM Patient Name: Yumiko Santizo Visit Number: [id number] Dr. Ashlyn Garcia History/Risk Factors: DM2, Chronic kidney disease, RUQ abdominal pain w choledocholithiasis and sepsis this admission per EC Note Clinical Indicators: Patient presents with a BUN: 42/40 CR: 2.19/2.2 GFR: 23/ 8/15/ Patients baseline BUN/CR/GFR: 47/ 2.54/ 19 Treatment: IVF: 1L 0.9%% NS IVF bolus, Followed by 0.9% NS @ 100 cc/hr decreased to 75 cc/hr In order to capture the severity of condition, please clarify if the condition signifies: Acute renal failure Please specify (if known): Cortical, Medullary, or Tubular Necrosis? Acute kidney injury Acute on chronic renal failure Chronic renal failure, please stage Chronic kidney disease (CKD) and please stage Stage 1 GFR >90 Stage 2 GFR 60-89 Stage 3 GFR 30-59 Stage 4 GFR 15-29 Stage 5 GFR <15 ESRD Unable to determine Other, specify Please document in your progress notes and discharge summary in order to capture severity of illness and risk of mortality. Include clinical findings that support your diagnosis. FYI: Press F11 to launch patient chart. Place X here if this finding has no clinical significance, is not applicable or if you are not able to provide any additional documentation. Chronic Kidney disease MTDD
--- NOTE | 2017-07-20 09:39 | CDI ---
In responding to this query, please exercise your independent professional judgment. The [facility] Coding Staff and Clinical Documentation Specialists appreciate your assistance in clarifying documentation, maintaining compliance with coding guidelines, accurately documenting patients condition and capturing severity of illness. The fact that a question is asked does not imply that any particular answer is desired or expected. Communication forms are a method of clarifying documentation and are not made part of the Legal Health Record. Thank you in advance for your clarification. Last Revision, February 2017 Damián Pulido [address] [facility] [place] [address] Documentation Clarification Form Date: 07/20/2017 9:29:00 AM From: Sujatha Ross RN, CCDS Admit Date: 07/19/2017 9:03:00 PM Patient Name: Yumiko Santizo Visit Number: [id number] Dr. Ashlyn Garcia History/Risk Factors: DM2, CRF Clinical Indicators: EC Clinical Impression: "Choledocholithiasis, Sepsis" WBC: 9/17.8 Left Shift : 7.1/16 Lactic acid: 1.7 Blood cultures: no cultures done 07/19/27 1646 Vitals signs on admission: Temp 97.6, HR 87, RR 18, B?P 154/68, Spo2 96% RA 07/19/[id number] Vital signs: Temp 101.5-101.8, HR 102-96, RR 22-18, B/P 138/63 , Spo2 93-90% on RA Treatment: Antibiotics: Levaquin 750 mg IVPB Q 48 hrs, IV Flagyl 500mg IVPB Q 6 hrs IV Bolus: 1L IVF bolus, followed by 100cc/hr decreased to 75 CC/ hr In your professional opinion, please clarify if these findings signify one of the following conditions, whether the condition is POA, and cause, if known: Sepsis, ruled out or resolved Sepsis Severe Sepsis Septic Shock Unable to determine Other, please specify Present on Admission: Yes No * Identify the (suspected) organism * Link or clarify if there is associated (due to/with): - Organ failure - Shock SIRS Criteria: 2 or more of the following may indicate SIRS Temperature < 96.8F(36C) or > 101.0F (38C) Heart Rate > 90 bpm Respiratory Rate > 20 breaths/min or PaCO2 < 32 mmHg White Blood Cell Count > 12,000 or < 4,000 cells/mm3 or > 10% bands Lactate >2.0 mmol/L (>4.0 is equivalent to septic shock) Please document in your progress notes and discharge summary in order to capture severity of illness and risk of mortality. Include clinical findings that support your diagnosis. FYI: Press F11 to launch patient chart. Place X here if this finding has no clinical significance, is not applicable or if you are not able to provide any additional documentation. Sepsis MTDD
--- NOTE | 2017-07-20 10:10 | P.CONS ---
History of Present Illness - Reason for Consult Consult date: 07/20/17 elevated liver enzymes Requesting physician: Arya Barclay - History of Present Illness 62-year-old female presents with acute right upper quadrant abdominal pain, fever T-max 101.9, shortness of breath and elevated liver enzymes. These symptoms started around June 29. Past medical history of pulmonary embolism post laparoscopic cholecystectomy 2011 with Coumadin maintenance, chronic kidney disease stage IV nephrosclerosis , obesity, diabetes mellitus, hypertension, UTIs, hyperlipidemia, pneumonia. Recently evaluated in the emergency room on 07/13/2017 with similar presentation ; right-sided abdominal pain and elevated liver enzymes. D-dimer 0.4. Total bilirubin 0.9. AST 549. ALT 275. Alkaline phosphatase 367. Lipase 74. White count 10.6. No fevers. Ultrasound abdomen fatty infiltration of liver. CBD 0.2 cm. Patient was discharged with GI follow-up recommended. She underwent laparoscopic cholecystectomy [address] Weeks for acute acalculous cholecystitis right upper quadrant abdominal pain with intraoperative findings of a tortuous cystic duct early hydrops subacute/ chronic cholecystitis. Hepatitis screen negative. INR 2.5. BUN 42. Creatinine 2.1. Total bilirubin 1.1-1.9. AST 353-515. ALT 257-383. Alkaline phosphatase 686-650. White count 9.0-17.8. Hemoglobin 10.1. MCV 91. Platelet 200. Blood cultures pending. CT abdomen and pelvis without IV contrast reported no focal liver defect. Significant pancreatic atrophy. Small high density foci in the common bile duct consistent with possible choledocholithiasis without ascites. Intrahepatic bile ducts not dilated. She has a history of elevated liver enzymes and chronic elevation of alkaline phosphatase dating back to [id number]. Total bilirubin 1.5-3.6. AST 61-1247. ALT 116-774. Alkaline phosphatase 139-467. No additions to home medications. Statin was stopped about a week ago secondary to elevated liver enzymes. No history of alcoholism. Review of Systems Constitutional: Denies fever, chills, sweats, weight gain, or loss. HEENT: Negative for migraines, blurred vision or loss, earaches, drainage, tinnitus, oral mucosal lesions, dysphagia, or odynophagia. CARDIAC: Hypertension. Hyperlipidemia. Negative for chest pain, arrhythmias, or palpitation. RESPIRATORY: Pulmonary embolism. Negative for shortness of breath, hemoptysis, cough, or sputum production. GI: See HPI for pertinent findings. : Negative for hematuria, urgency, frequency, polyuria, or dysuria. GYNc: Denies possibility of . Negative vaginal discharge. MUSCULOSKELETAL: Negative for muscle aches, swelling, arthritis, and arthralgias. NEUROLOGIC: Negative for stroke or TIA. Nephrology: Stage IV chronic kidney disease. ENDOCRINE: Diabetes mellitus. Negative for thyroid problems. SKIN: Negative for rash or itching. PSYCHIATRIC: Negative history for depression and anxiety All systems: negative (See HPI) Past Medical History Past Medical History: Coronary Artery Disease (CAD), Diabetes Mellitus, Deep Vein Thrombosis (DVT), Hyperlipidemia, Hypertension, Pulmonary Embolus (PE), Renal Disease Additional Past Medical History / Comment(s): Vitamin D Deficency, pt has insulin pump, elevated liver enzymes History of Any Multi-Drug Resistant Organisms: None Reported Past Surgical History: Appendectomy, Cholecystectomy Additional Past Surgical History / Comment(s): Breast Biopsy, Carapal tunnel to right hand, Heart Catherization, colonoscopy 08/2014 Past Anesthesia/Blood Transfusion Reactions: No Reported Reaction Past Psychological History: No Psychological Hx Reported Smoking Status: Never smoker Past Alcohol Use History: None Reported Past Drug Use History: None Reported - Past Family History Mother Family Medical History: No Reported History (No family history of gastrointestinal malignancies or liver disease) Additional Family Medical History / Comment(s): heart disease Father Additional Family Medical History / Comment(s): heart disease Medications and Allergies Home Medications Medication Instructions Recorded Confirmed Type Furosemide [Lasix] 40 mg PO DAILY 04/08/16 07/19/17 History Magnesium Oxide [Mag-Ox] 400 mg PO QAM 04/08/16 07/19/17 History amLODIPine [Norvasc] 5 mg PO QAM 07/06/16 07/19/17 History Ergocalciferol (Vitamin D2) 50,000 unit PO Q30D 07/13/16 07/19/17 History [Drisdol] Warfarin Sodium [Warfarin Sodium] 6 mg PO SUMOTUWEFRSA 07/13/17 07/19/17 History Warfarin Sodium [Warfarin Sodium] 8 mg PO TH 07/13/17 07/19/17 History Calcitriol 0.5 mcg PO DAILY 07/19/17 07/19/17 History Insulin Aspart (For Pump) [NovoLOG 0.01 unit SQ-PUMP CONTINUOUS 07/19/17 History (For Pump)] Allergies Allergy/AdvReac Type Severity Reaction Status Date / Time azithromycin Allergy Unknown Rash/Hives Verified 07/19/17 17:46 amoxicillin Allergy Rash/Hives Verified 07/19/17 17:46 Physical Exam Vitals: Vital Signs Temp Pulse Pulse Resp BP BP Pulse Ox 07/20/17 04:00 98.8 F 76 18 132/60 94 L 07/20/17 00:19 98.9 F 74 20 116/55 95 07/19/17 23:00 101.9 F H 82 18 96 07/19/17 22:24 96 07/19/17 22:23 85 18 90 L 07/19/17 21:45 101.8 F H 96 18 138/63 95 07/19/17 20:41 101.5 F H 07/19/17 20:28 102 H 22 145/61 93 L 07/19/17 19:32 100.4 F H 92 96 07/19/17 19:08 85 17 160/63 97 07/19/17 18:26 76 17 97 07/19/17 16:46 97.6 F 87 18 154/68 96 Intake and Output 07/19/17 07/20/17 07/20/17 22:59 06:59 14:59 Intake Total 300 Balance 300 Intake: IV 300 Sodium Chloride 0.9% 1, 300 000 ml @ 100 mls/hr IV . Q10H STA Rx#:[id number] Other: # Voids 1 Weight 118.388 kg General appearance: The patient is alert, oriented, in no acute distress. HET: Head is normocephalic and atraumatic. Pupils are equal and reactive. Oropharynx is clear without lesions. Neck: Supple without lymphadenopathy. Trachea midline. Heart: S1 S2. Regular rate and rhythm. Lungs: No crackles or wheezes are heard. Abdomen: Soft, right upper quadrant tenderness, nondistended with bowel sounds. No peritoneal signs. No palpable organomegaly or masses. Extremities: Normal skin color and turgor. No cyanosis, rash, ulceration, clubbing, or edema. Radial and pedal pulses are 2/4 bilaterally. Neurological: No focal deficits. Strength and sensation are grossly intact. Results CBC & Chem 7: 07/20/17 05:37 07/20/17 05:37 Labs: Abnormal Lab Results - Last 24 Hours (Table) 07/19/17 07/19/17 07/19/17 Range/Units 18:15 18:15 18:15 WBC (3.8-10.6) k/uL RBC (3.80-5.40) m/uL Hgb (11.4-16.0) gm/dL Hct (34.0-46.0) % RDW 15.7 H (11.5-15.5) % Neutrophils # (1.3-7.7) k/uL Lymphocytes # (1.0-4.8) k/uL Monocytes # (0-1.0) k/uL PT 24.3 H (9.0-12.0) sec INR 2.5 H (<1.2) Chloride 96 L (98-107) mmol/L BUN 42 H (7-17) mg/dL Creatinine 2.19 H (0.52-1.04) mg/dL Glucose 299 H (74-99) mg/dL POC Glucose (mg/dL) (75-99) mg/dL Calcium (8.4-10.2) mg/dL Total Bilirubin (0.2-1.3) mg/dL AST 353 H (14-36) U/L ALT 257 H (9-52) U/L Alkaline Phosphatase 686 H (38-126) U/L Total Protein (6.3-8.2) g/dL Albumin (3.5-5.0) g/dL Urine Glucose (UA) (Negative) 07/19/17 07/20/17 07/20/17 Range/Units 18:15 00:31 05:37 WBC 17.8 H (3.8-10.6) k/uL RBC 3.48 L (3.80-5.40) m/uL Hgb 10.1 L (11.4-16.0) gm/dL Hct 31.8 L (34.0-46.0) % RDW 16.3 H (11.5-15.5) % Neutrophils # 16.0 H (1.3-7.7) k/uL Lymphocytes # 0.6 L (1.0-4.8) k/uL Monocytes # 1.1 H (0-1.0) k/uL PT (9.0-12.0) sec INR (<1.2) Chloride (98-107) mmol/L BUN (7-17) mg/dL Creatinine (0.52-1.04) mg/dL Glucose (74-99) mg/dL POC Glucose (mg/dL) 228 H (75-99) mg/dL Calcium (8.4-10.2) mg/dL Total Bilirubin (0.2-1.3) mg/dL AST (14-36) U/L ALT (9-52) U/L Alkaline Phosphatase (38-126) U/L Total Protein (6.3-8.2) g/dL Albumin (3.5-5.0) g/dL Urine Glucose (UA) 3+ H (Negative) 07/20/17 07/20/17 07/20/17 Range/Units 05:37 05:37 06:10 WBC (3.8-10.6) k/uL RBC (3.80-5.40) m/uL Hgb (11.4-16.0) gm/dL Hct (34.0-46.0) % RDW (11.5-15.5) % Neutrophils # (1.3-7.7) k/uL Lymphocytes # (1.0-4.8) k/uL Monocytes # (0-1.0) k/uL PT 23.9 H (9.0-12.0) sec INR 2.5 H (<1.2) Chloride (98-107) mmol/L BUN 40 H (7-17) mg/dL Creatinine 2.20 H (0.52-1.04) mg/dL Glucose 199 H (74-99) mg/dL POC Glucose (mg/dL) 196 H (75-99) mg/dL Calcium 8.1 L (8.4-10.2) mg/dL Total Bilirubin 1.9 H (0.2-1.3) mg/dL AST 515 H (14-36) U/L ALT 383 H (9-52) U/L Alkaline Phosphatase 650 H (38-126) U/L Total Protein 5.7 L (6.3-8.2) g/dL Albumin 3.2 L (3.5-5.0) g/dL Urine Glucose (UA) (Negative) CT scan - abdomen: report reviewed (Reviewed by Dr. Flynn) US - abdomen: report reviewed (07/[address] Flynn) Assessment and Plan Plan: Impression: 1. 62-year-old female presents with acute right upper quadrant abdominal pain elevated liver enzymes fever with CT imaging suggestive of choledocholithiasis without biliary dilatation with a history of acalculus cholecystectomy 2012 possible biliary sepsis possible choledocholithiasis. Recommendations: 1. PT/INR needs to be 1.5 or less before proceeding with ERCP evaluation therefore will proceed with MRCP evaluation today. Bilirubin fractions. Repeat liver chemistries daily. Broad-spectrum antibiotics. Blood cultures pending. Clear liquid diet as tolerated. We'll follow closely with you. Further recommendations to follow after review of MRI. Thank you for this kind referral and the opportunity to participate in the care of your patient. This consultation was discussed with Dr. Flynn. The impression and plan of care have been directed as dictated.
[2017-07-20 10:42] LABS: Bilirubin, Delta 1.2 mg/dL (0.0-0.2)
[2017-07-20] MEDS: SODIUM CHLORIDE 0.9% 1,000 ML IV SCH ×2 (10:54→20:21)
[2017-07-20] MEDS: metroNIDAZOLE-NS PMX 500 MG in SALINE 1 100ML.BAG IVPB SCH ×2 (10:54→17:48)
[2017-07-20 12:11] LABS: Glucose,Whole Blood 152 mg/dL (75-99)
[2017-07-20] MEDS ORDERED: Insulin Aspart (For Pump) 100 UNIT/ML VIAL SQ-PUMP SCH (12:15)
[2017-07-20] MEDS: amLODIPine 5 MG TAB PO SCH (12:40)
[2017-07-20] MEDS: MAGNESIUM OXIDE 400 MG TAB PO SCH (12:40)
--- NOTE | 2017-07-20 12:55 | P.PN ---
Subjective Principal diagnosis: Sepsis/right upper quadrant pain 62 years old female presented with right upper quadrant pain. Upon admission to ER patient had leukocytosis, fever, tachycardia,. She met criteria for sepsis, suspected choledocholithiasis, started on IV antibiotics, blood culture pending. At the present time abdominal pain subsided,dull, 5-6 out of 10 in intensity, located in the right upper quadrant and epigastric area. No nausea or vomiting, no diarrhea, headache or dizziness. Objective - Vital Signs Vital signs: Vital Signs Temp 97.7 F 07/20/17 11:36 Pulse 77 07/20/17 11:36 Resp 19 07/20/17 11:36 BP 131/60 07/20/17 11:36 Pulse Ox 95 07/20/17 11:36 Intake & Output 07/19/17 07/20/17 07/20/17 18:59 06:59 18:59 Intake Total 300 500 Balance 300 500 Weight 118.388 kg 118.388 kg 120 kg Intake: IV 300 Sodium Chloride 0.9% 1, 300 000 ml @ 100 mls/hr IV . Q10H [facility]A Rx#:[id number] Intake, IV Titration 500 Amount Sodium Chloride 0.9% 1, 500 000 ml @ 75 mls/hr IV . [id number] [facility]NA[facility]LE Rx#:[id number] Other: # Voids 1 - Exam Physical exam: No acute distress, awake, oriented 3 HEENT: Normocephalic, atraumatic, sclera anicteric. Neck supple no JVD or thyromegaly, trachea midline. Cardiovascular exam reveals normal S1-S2, regular rate, no murmurs rubs or gallops. Chest-clear to auscultation bilaterally, good respiratory effort. No wheezes or crackles. Abdomen-tender in right upper quadrant and epigastric area, nondistended. No peritoneal signs, bowel sounds present. Extremities-no edema or cyanosis. Skin is clear form and dry. - Labs CBC & Chem 7: 07/20/17 05:37 07/20/17 05:37 Labs: Abnormal Lab Results - Last 24 Hours (Table) 07/19/17 07/19/17 07/19/17 Range/Units 18:15 18:15 18:15 WBC (3.8-10.6) k/uL RBC (3.80-5.40) m/uL Hgb (11.4-16.0) gm/dL Hct (34.0-46.0) % RDW 15.7 H (11.5-15.5) % Neutrophils # (1.3-7.7) k/uL Lymphocytes # (1.0-4.8) k/uL Monocytes # (0-1.0) k/uL PT 24.3 H (9.0-12.0) sec INR 2.5 H (<1.2) Chloride 96 L (98-107) mmol/L BUN 42 H (7-17) mg/dL Creatinine 2.19 H (0.52-1.04) mg/dL Glucose 299 H (74-99) mg/dL POC Glucose (mg/dL) (75-99) mg/dL Calcium (8.4-10.2) mg/dL Total Bilirubin (0.2-1.3) mg/dL Conjugated Bilirubin (0.0-0.3) mg/dL Delta Bilirubin (0.0-0.2) mg/dL AST 353 H (14-36) U/L ALT 257 H (9-52) U/L Alkaline Phosphatase 686 H (38-126) U/L Total Protein (6.3-8.2) g/dL Albumin (3.5-5.0) g/dL Urine Glucose (UA) (Negative) 07/19/17 07/20/17 07/20/17 Range/Units 18:15 00:31 05:37 WBC 17.8 H (3.8-10.6) k/uL RBC 3.48 L (3.80-5.40) m/uL Hgb 10.1 L (11.4-16.0) gm/dL Hct 31.8 L (34.0-46.0) % RDW 16.3 H (11.5-15.5) % Neutrophils # 16.0 H (1.3-7.7) k/uL Lymphocytes # 0.6 L (1.0-4.8) k/uL Monocytes # 1.1 H (0-1.0) k/uL PT (9.0-12.0) sec INR (<1.2) Chloride (98-107) mmol/L BUN (7-17) mg/dL Creatinine (0.52-1.04) mg/dL Glucose (74-99) mg/dL POC Glucose (mg/dL) 228 H (75-99) mg/dL Calcium (8.4-10.2) mg/dL Total Bilirubin (0.2-1.3) mg/dL Conjugated Bilirubin (0.0-0.3) mg/dL Delta Bilirubin (0.0-0.2) mg/dL AST (14-36) U/L ALT (9-52) U/L Alkaline Phosphatase (38-126) U/L Total Protein (6.3-8.2) g/dL Albumin (3.5-5.0) g/dL Urine Glucose (UA) 3+ H (Negative) 07/20/17 07/20/17 07/20/17 Range/Units 05:37 05:37 06:10 WBC (3.8-10.6) k/uL RBC (3.80-5.40) m/uL Hgb (11.4-16.0) gm/dL Hct (34.0-46.0) % RDW (11.5-15.5) % Neutrophils # (1.3-7.7) k/uL Lymphocytes # (1.0-4.8) k/uL Monocytes # (0-1.0) k/uL PT 23.9 H (9.0-12.0) sec INR 2.5 H (<1.2) Chloride (98-107) mmol/L BUN 40 H (7-17) mg/dL Creatinine 2.20 H (0.52-1.04) mg/dL Glucose 199 H (74-99) mg/dL POC Glucose (mg/dL) 196 H (75-99) mg/dL Calcium 8.1 L (8.4-10.2) mg/dL Total Bilirubin 1.9 H (0.2-1.3) mg/dL Conjugated Bilirubin 0.4 H (0.0-0.3) mg/dL Delta Bilirubin 1.2 H (0.0-0.2) mg/dL AST 515 H (14-36) U/L ALT 383 H (9-52) U/L Alkaline Phosphatase 650 H (38-126) U/L Total Protein 5.7 L (6.3-8.2) g/dL Albumin 3.2 L (3.5-5.0) g/dL Urine Glucose (UA) (Negative) 07/20/17 Range/Units 12:09 WBC (3.8-10.6) k/uL RBC (3.80-5.40) m/uL Hgb (11.4-16.0) gm/dL Hct (34.0-46.0) % RDW (11.5-15.5) % Neutrophils # (1.3-7.7) k/uL Lymphocytes # (1.0-4.8) k/uL Monocytes # (0-1.0) k/uL PT (9.0-12.0) sec INR (<1.2) Chloride (98-107) mmol/L BUN (7-17) mg/dL Creatinine (0.52-1.04) mg/dL Glucose (74-99) mg/dL POC Glucose (mg/dL) 152 H (75-99) mg/dL Calcium (8.4-10.2) mg/dL Total Bilirubin (0.2-1.3) mg/dL Conjugated Bilirubin (0.0-0.3) mg/dL Delta Bilirubin (0.0-0.2) mg/dL AST (14-36) U/L ALT (9-52) U/L Alkaline Phosphatase (38-126) U/L Total Protein (6.3-8.2) g/dL Albumin (3.5-5.0) g/dL Urine Glucose (UA) (Negative) Assessment and Plan (1) Sepsis Narrative/Plan: Follow up blood cultures. Continue IV antibiotics. Status: Acute (2) Choledocholithiasis Narrative/Plan: GI has been consulted. MRCP pending. Clear liquid diet, nothing by mouth 6 hours before MRCP. Status: Acute (3) Type 2 diabetes mellitus, with long-term current use of insulin Narrative/Plan: Accu-Chek before meals at bedtime, continue insulin. Status: Acute (4) Acute on chronic renal failure Narrative/Plan: Hold Lasix. Monitor kidney function and consult nephrology. Status: Acute (5) Diabetic nephropathy Narrative/Plan: Continue gabapentin Status: Acute
[2017-07-20] MEDS ORDERED: PHYTONADIONE ORAL 5 MG/5 ML ORAL.SYRG PO STA (15:42)
[2017-07-20] MEDS ORDERED: MENTHOL (NICE) LOZENGE MUCOUS MEM PRN (16:42)
[2017-07-20 17:17] LABS: Glucose,Whole Blood 202 mg/dL (75-99)
[2017-07-20] MEDS: LORATADINE 10 MG TAB PO SCH ×2 (17:48→17:50)
[2017-07-21] MEDS: metroNIDAZOLE-NS PMX 500 MG in SALINE 1 100ML.BAG IVPB SCH ×3 (00:04→15:59)
[2017-07-21] MEDS: INSULIN LISPRO (humaLOG) 300 UNIT/3 ML VIAL SQ SCH ×4 (00:09→18:48)
[2017-07-21 00:18] LABS: Glucose,Whole Blood 244 mg/dL (75-99)
[2017-07-21] MEDS: SODIUM CHLORIDE 0.9% 1,000 ML IV SCH ×2 (06:08→16:03)
[2017-07-21 06:14] LABS: Glucose,Whole Blood 240 mg/dL (75-99)
[2017-07-21 07:02] LABS: Basophils % (A) 0 %; CH 28.7; CHCM 31.6; Eosinophils # (A) 0.2 k/uL (0-0.7); Eosinophils % (A) 2 %; HDW 2.47; HGB 10.1 gm/dL (11.4-16.0); Luc # (Auto) 0.21; Luc % (Auto) 3; Lymphocytes # (A) 0.8 k/uL (1.0-4.8); Lymphocytes % (A) 9 %; MCH 29.8 pg (25.0-35.0); MCHC 32.7 g/dL (31.0-37.0); MCV 91.4 fL (80.0-100.0); Mean Platelet Volume 7.8; Monocytes # (A) 0.6 k/uL (0-1.0); Monocytes % (A) 7 %; Neutrophils # (A) 6.6 k/uL (1.3-7.7); Neutrophils % (A) 79 %; RDW 15.9 % (11.5-15.5); WBC 8.4 k/uL (3.8-10.6); WBC (Perox) 9.04
[2017-07-21 07:15] LABS: INR 1.3 (<1.2)
[2017-07-21 08:58] LABS: Calcium 8.3 mg/dL (8.4-10.2); Potassium 4.2 mmol/L (3.5-5.1); Total Bilirubin 4.8 mg/dL (0.2-1.3); Total Protein 5.7 g/dL (6.3-8.2)
[2017-07-21] MEDS ORDERED: LEVOFLOXACIN 750MG-D5W PMX 750 MG in DEXTROSE/WATER 1 150ML.BAG IVPB SCH (09:00)
[2017-07-21] MEDS: LEVOFLOXACIN 250MG-D5W PMX 250 MG in DEXTROSE/WATER 1 50ML.BAG IVPB SCH (09:40)
[2017-07-21] MEDS: amLODIPine 5 MG TAB PO SCH (09:46)
[2017-07-21] MEDS: LORATADINE 10 MG TAB PO SCH (09:47)
[2017-07-21] MEDS: CALCITRIOL 0.25 MCG CAP PO SCH (09:48)
--- NOTE | 2017-07-21 10:24 | P.PN ---
Subjective Principal diagnosis: Abdominal pain elevated liver enzymes 62-year-old female with a history of acalculus cholecystectomy presents with fever and right upper quadrant abdominal pain and elevated liver enzymes possible biliary sepsis acute cholangitis. CT imaging reported possible choledocholithiasis in the distal CBD without dilation. History of pulmonary embolism requiring warfarin therapy since discontinued. Current INR 1.3. Total bilirubin increased to 4.8. MRCP attended yesterday but unsuccessful secondary to body habitus. Still reports right upper quadrant discomfort. Afebrile. Blood cultures reporting no growth. Objective - Vital Signs Vital signs: Vital Signs Temp 98.5 F 07/21/17 08:23 Pulse 74 07/21/17 08:23 Resp 20 07/21/17 09:04 BP 140/69 07/21/17 08:23 Pulse Ox 94 L 07/21/17 08:23 Intake & Output 07/20/17 07/21/17 07/21/17 18:59 06:59 18:59 Intake Total 600 Output Total 950 1400 650 Balance -350 -1400 -650 Weight 120 kg 121.4 kg Intake: Intake, IV Titration 600 Amount Sodium Chloride 0.9% 1, 500 000 ml @ 75 mls/hr IV . [id number] [facility] Rx#:[id number] PMX 500 100 mg In Saline 1 100ml.bag @ 100 mls/hr IVPB Q6HR ANNA[facility]LE Rx#:[id number] Output: Urine 950 1400 650 Other: # Voids 1 1 1 - Exam General appearance: The patient is alert, oriented, in no acute distress. Jaundice. HET: Head is normocephalic and atraumatic. Pupils are equal and reactive. Sclerae icterus. Oropharynx is clear without lesions. Neck: Supple without lymphadenopathy. Trachea midline. Heart: S1 S2. Regular rate and rhythm. Lungs: No crackles or wheezes are heard. Abdomen: Soft, mild right upper quadrant abdominal pain, nondistended with bowel sounds. No peritoneal signs. No palpable organomegaly or masses. Extremities: Normal skin color and turgor. No cyanosis, rash, ulceration, clubbing, or edema. Radial and pedal pulses are 2/4 bilaterally. Neurological: No focal deficits. Strength and sensation are grossly intact. - Labs CBC & Chem 7: 07/21/17 06:34 07/21/17 06:34 Labs: Abnormal Lab Results - Last 24 Hours (Table) 07/20/17 07/20/17 07/20/17 Range/Units 05:37 12:09 17:15 RBC (3.80-5.40) m/uL Hgb (11.4-16.0) gm/dL Hct (34.0-46.0) % RDW (11.5-15.5) % Lymphocytes # (1.0-4.8) k/uL PT (9.0-12.0) sec INR (<1.2) BUN (7-17) mg/dL Creatinine (0.52-1.04) mg/dL Glucose (74-99) mg/dL POC Glucose (mg/dL) 152 H 202 H (75-99) mg/dL Calcium (8.4-10.2) mg/dL Total Bilirubin (0.2-1.3) mg/dL Conjugated Bilirubin 0.4 H (0.0-0.3) mg/dL Delta Bilirubin 1.2 H (0.0-0.2) mg/dL AST (14-36) U/L ALT (9-52) U/L Alkaline Phosphatase (38-126) U/L Total Protein (6.3-8.2) g/dL Albumin (3.5-5.0) g/dL 07/21/17 07/21/17 07/21/17 Range/Units 00:08 06:04 06:34 RBC 3.40 L (3.80-5.40) m/uL Hgb 10.1 L (11.4-16.0) gm/dL Hct 31.0 L (34.0-46.0) % RDW 15.9 H (11.5-15.5) % Lymphocytes # 0.8 L (1.0-4.8) k/uL PT (9.0-12.0) sec INR (<1.2) BUN (7-17) mg/dL Creatinine (0.52-1.04) mg/dL Glucose (74-99) mg/dL POC Glucose (mg/dL) 244 H 240 H (75-99) mg/dL Calcium (8.4-10.2) mg/dL Total Bilirubin (0.2-1.3) mg/dL Conjugated Bilirubin (0.0-0.3) mg/dL Delta Bilirubin (0.0-0.2) mg/dL AST (14-36) U/L ALT (9-52) U/L Alkaline Phosphatase (38-126) U/L Total Protein (6.3-8.2) g/dL Albumin (3.5-5.0) g/dL 07/21/17 07/21/17 Range/Units 06:34 06:34 RBC (3.80-5.40) m/uL Hgb (11.4-16.0) gm/dL Hct (34.0-46.0) % RDW (11.5-15.5) % Lymphocytes # (1.0-4.8) k/uL PT 13.0 H (9.0-12.0) sec INR 1.3 H (<1.2) BUN 29 H (7-17) mg/dL Creatinine 2.20 H (0.52-1.04) mg/dL Glucose 254 H (74-99) mg/dL POC Glucose (mg/dL) (75-99) mg/dL Calcium 8.3 L (8.4-10.2) mg/dL Total Bilirubin 4.8 H (0.2-1.3) mg/dL Conjugated Bilirubin (0.0-0.3) mg/dL Delta Bilirubin (0.0-0.2) mg/dL AST 220 H (14-36) U/L ALT 292 H (9-52) U/L Alkaline Phosphatase 669 H (38-126) U/L Total Protein 5.7 L (6.3-8.2) g/dL Albumin 3.2 L (3.5-5.0) g/dL Microbiology - Last 24 Hours (Table) 07/19/17 18:15 Blood Culture - Preliminary Blood No Growth after 24 hours Assessment and Plan Plan: Impression: 1. 62-year-old female presents with acute right upper quadrant abdominal pain elevated liver enzymes fever with CT imaging suggestive of choledocholithiasis without biliary dilatation with a history of acalculus cholecystectomy 2012 possible biliary sepsis possible choledocholithiasis. Recommendations: 1. ERCP. The wireless telegrapher has discussed the risks, benefits and alternative therapies for the above-mentioned procedure and for both sedation/analgesia as well as necessary blood product administration, if indicated, as they pertain to this patient. The patient has indicated understanding and acceptance of the risks and procedures discussed. Assessment and plan a care discussed with Dr. Flynn
[2017-07-21 12:08] LABS: Glucose,Whole Blood 260 mg/dL (75-99)
[2017-07-21] MEDS ORDERED: INDOMETHACIN 50MG SUPPOSITORY RECTAL ONE (12:30)
--- NOTE | 2017-07-21 13:12 | P.GSCN ---
<Ellie Cope - Last Filed: 07/21/17 13:07> History of Present Illness Consult date: 07/21/17 Reason for Consult: Abdominal pain History of present illness: 62-year-old female who is being seen for a surgical eval at the request of the attending in a patient who presented to the emergency room with acute right upper quadrant abdominal pain. On admission the temp was 11.9. Patient was noted to have elevated liver enzymes. Patient stated her symptoms have been ongoing since June 29. Patient is known to Dr. Weeks service. Patient underwent a laparoscopic cholecystectomy in December 2011. Patient did have a CAT scan of the abdomen pelvis without IV contrast this admission.CT imaging reported possible choledocholithiasis in the distal CBD without dilation. It showed no focal liver defect. Significant pancreatic ectopy. Small high density foci in the common bile duct consistent with possible choledocholithiasis without ascites. Intrahepatic bile ducts not dilated. Patient continues to report having persistent right upper quadrant abdominal pain. Patient is being scheduled today for an ERCP per GI service. An attempt was made to have a MRCP done yesterday but it was unsuccessful secondary to patient's body habitus. Patient does have a history of having a pulmonary emboli on anticoagulation Coumadin. The Coumadin has been stopped. The INR this morning is down to 1.3. Patient also had blood cultures obtained currently there is showing no growth to date. Review of Systems Essentially unremarkable except as mentioned in the present illness Past Medical History Past Medical History: Coronary Artery Disease (CAD), Diabetes Mellitus, Deep Vein Thrombosis (DVT), Hyperlipidemia, Hypertension, Pulmonary Embolus (PE), Renal Disease Additional Past Medical History / Comment(s): Vitamin D Deficency, pt has insulin pump, elevated liver enzymes History of Any Multi-Drug Resistant Organisms: None Reported Past Surgical History: Appendectomy, Cholecystectomy Additional Past Surgical History / Comment(s): Breast Biopsy, Carapal tunnel to right hand, Heart Catherization, colonoscopy 08/2014 Past Anesthesia/Blood Transfusion Reactions: No Reported Reaction Past Psychological History: No Psychological Hx Reported Smoking Status: Never smoker Past Alcohol Use History: None Reported Past Drug Use History: None Reported - Past Family History Mother Family Medical History: No Reported History (No family history of gastrointestinal malignancies or liver disease) Additional Family Medical History / Comment(s): heart disease Father Additional Family Medical History / Comment(s): heart disease Medications and Allergies Home Medications Medication Instructions Recorded Confirmed Type Furosemide [Lasix] 40 mg PO DAILY 04/08/16 07/20/17 History Magnesium Oxide [Mag-Ox] 420 mg PO QAM 04/08/16 07/20/17 History amLODIPine [Norvasc] 5 mg PO QAM 07/06/16 07/20/17 History Ergocalciferol (Vitamin D2) 50,000 unit PO Q30D 07/13/16 07/20/17 History [Drisdol] Warfarin Sodium [Warfarin Sodium] 6 mg PO SUMOTUWEFRSA 07/13/17 07/20/17 History Warfarin Sodium [Warfarin Sodium] 8 mg PO TH 07/13/17 07/20/17 History Calcitriol 0.5 mcg PO DAILY 07/19/17 07/20/17 History Insulin Aspart (For Pump) [NovoLOG 0.85 unit SQ-PUMP CONTINUOUS 07/19/17 History (For Pump)] Allergies Allergy/AdvReac Type Severity Reaction Status Date / Time azithromycin Allergy Unknown Rash/Hives Verified 07/20/17 11:13 amoxicillin Allergy Rash/Hives Verified 07/20/17 11:13 Surgical - Exam Vital Signs Temp Pulse Resp BP Pulse Ox 97.6 F 87 18 154/68 96 07/19/17 16:46 07/19/17 16:46 07/19/17 16:46 07/19/17 16:46 07/19/17 16:46 GENERAL APPEARANCE: 62 year old female patient is alert, oriented, in no acute distress. VITAL SIGNS: Reviewed HEENT: Head is normocephalic and atraumatic. Pupils are equal and reactive. The nares are patent. Oropharynx is clear without lesions. NECK: Supple without lymphadenopathy. Traches midline. HEART: S1, S2. Regular rate and rhythm. Denying chest pain LUNGS: No crackles or wheezes are heard. Adequate air movement ABDOMEN: Soft, right upper quadrant discomfort nondistended with good bowel sounds. No peritoneal signs. No palpable organomegaly or masses. EXTREMITIES: Normal skin color and turgor. No cyanosis, rash, ulceration, clubbing or edema. Radial pedal pulses are 2/4 bilaterally. NEUROLOGICAL: No focal deficits. Strength and sensation are grossly intact. Results - Labs 07/21/17 06:34 07/21/17 06:34 Abnormal Lab Results - Last 24 Hours (Table) 07/20/17 07/21/17 07/21/17 Range/Units 17:15 00:08 06:04 RBC (3.80-5.40) m/uL Hgb (11.4-16.0) gm/dL Hct (34.0-46.0) % RDW (11.5-15.5) % Lymphocytes # (1.0-4.8) k/uL PT (9.0-12.0) sec INR (<1.2) BUN (7-17) mg/dL Creatinine (0.52-1.04) mg/dL Glucose (74-99) mg/dL POC Glucose (mg/dL) 202 H 244 H 240 H (75-99) mg/dL Calcium (8.4-10.2) mg/dL Total Bilirubin (0.2-1.3) mg/dL AST (14-36) U/L ALT (9-52) U/L Alkaline Phosphatase (38-126) U/L Total Protein (6.3-8.2) g/dL Albumin (3.5-5.0) g/dL 07/21/17 07/21/17 07/21/17 Range/Units 06:34 06:34 06:34 RBC 3.40 L (3.80-5.40) m/uL Hgb 10.1 L (11.4-16.0) gm/dL Hct 31.0 L (34.0-46.0) % RDW 15.9 H (11.5-15.5) % Lymphocytes # 0.8 L (1.0-4.8) k/uL PT 13.0 H (9.0-12.0) sec INR 1.3 H (<1.2) BUN 29 H (7-17) mg/dL Creatinine 2.20 H (0.52-1.04) mg/dL Glucose 254 H (74-99) mg/dL POC Glucose (mg/dL) (75-99) mg/dL Calcium 8.3 L (8.4-10.2) mg/dL Total Bilirubin 4.8 H (0.2-1.3) mg/dL AST 220 H (14-36) U/L ALT 292 H (9-52) U/L Alkaline Phosphatase 669 H (38-126) U/L Total Protein 5.7 L (6.3-8.2) g/dL Albumin 3.2 L (3.5-5.0) g/dL 07/21/17 Range/Units 12:06 RBC (3.80-5.40) m/uL Hgb (11.4-16.0) gm/dL Hct (34.0-46.0) % RDW (11.5-15.5) % Lymphocytes # (1.0-4.8) k/uL PT (9.0-12.0) sec INR (<1.2) BUN (7-17) mg/dL Creatinine (0.52-1.04) mg/dL Glucose (74-99) mg/dL POC Glucose (mg/dL) 260 H (75-99) mg/dL Calcium (8.4-10.2) mg/dL Total Bilirubin (0.2-1.3) mg/dL AST (14-36) U/L ALT (9-52) U/L Alkaline Phosphatase (38-126) U/L Total Protein (6.3-8.2) g/dL Albumin (3.5-5.0) g/dL Microbiology - Last 24 Hours (Table) 07/19/17 18:15 Blood Culture - Preliminary Blood No Growth after 24 hours Diabetes panel 07/21/17 Range/Units 06:34 Sodium 141 (137-145) mmol/L Potassium 4.2 (3.5-5.1) mmol/L Chloride 106 (98-107) mmol/L Carbon Dioxide 23 (22-30) mmol/L BUN 29 H (7-17) mg/dL Creatinine 2.20 H (0.52-1.04) mg/dL Glucose 254 H (74-99) mg/dL Calcium 8.3 L (8.4-10.2) mg/dL AST 220 H (14-36) U/L ALT 292 H (9-52) U/L Alkaline Phosphatase 669 H (38-126) U/L Total Protein 5.7 L (6.3-8.2) g/dL Albumin 3.2 L (3.5-5.0) g/dL Calcium panel 07/21/17 Range/Units 06:34 Calcium 8.3 L (8.4-10.2) mg/dL Albumin 3.2 L (3.5-5.0) g/dL Pituitary panel 07/21/17 Range/Units 06:34 Sodium 141 (137-145) mmol/L Potassium 4.2 (3.5-5.1) mmol/L Chloride 106 (98-107) mmol/L Carbon Dioxide 23 (22-30) mmol/L BUN 29 H (7-17) mg/dL Creatinine 2.20 H (0.52-1.04) mg/dL Glucose 254 H (74-99) mg/dL Calcium 8.3 L (8.4-10.2) mg/dL Adrenal panel 07/21/17 Range/Units 06:34 Sodium 141 (137-145) mmol/L Potassium 4.2 (3.5-5.1) mmol/L Chloride 106 (98-107) mmol/L Carbon Dioxide 23 (22-30) mmol/L BUN 29 H (7-17) mg/dL Creatinine 2.20 H (0.52-1.04) mg/dL Glucose 254 H (74-99) mg/dL Calcium 8.3 L (8.4-10.2) mg/dL Total Bilirubin 4.8 H (0.2-1.3) mg/dL AST 220 H (14-36) U/L ALT 292 H (9-52) U/L Alkaline Phosphatase 669 H (38-126) U/L Total Protein 5.7 L (6.3-8.2) g/dL Albumin 3.2 L (3.5-5.0) g/dL Assessment and Plan Plan: Impression Present on admission right upper quadrant abdominal pain with elevated liver enzymes CAT scan abdomen pelvis suggestive of choledocholithiasis without biliary dilatation history of acalculus cholecystectomy 2012 possible biliary sepsis possible choledocholithiasis. Type 2 diabetes with the use of an insulin pump History of a pulmonary emboli on anticoagulation Coumadin Plan Await the findings from the ERCP scheduled today Pain control Defer to medical service for medical management of medical issues as they arise DVT and GI prophylaxis Further surgical recommendations pending will follow clinical course Thank you for allowing us to participate in the surgical management of your patient will follow surgical course closely addressing surgical issues The above impression and plan of care have been discussed and directed by signing physician. Ellie Cope nurse practitioner acting as scribe for signing physician. <Gilda Weeks N - Last Filed: 07/21/17 17:53> Surgical - Exam Vital Signs Temp Pulse Resp BP Pulse Ox 97.6 F 87 18 154/68 96 07/19/17 16:46 07/19/17 16:46 07/19/17 16:46 07/19/17 16:46 07/19/17 16:46 Results - Labs 07/21/17 06:34 07/21/17 06:34 Abnormal Lab Results - Last 24 Hours (Table) 07/21/17 07/21/17 07/21/17 Range/Units 00:08 06:04 06:34 RBC 3.40 L (3.80-5.40) m/uL Hgb 10.1 L (11.4-16.0) gm/dL Hct 31.0 L (34.0-46.0) % RDW 15.9 H (11.5-15.5) % Lymphocytes # 0.8 L (1.0-4.8) k/uL PT (9.0-12.0) sec INR (<1.2) BUN (7-17) mg/dL Creatinine (0.52-1.04) mg/dL Glucose (74-99) mg/dL POC Glucose (mg/dL) 244 H 240 H (75-99) mg/dL Calcium (8.4-10.2) mg/dL Total Bilirubin (0.2-1.3) mg/dL AST (14-36) U/L ALT (9-52) U/L Alkaline Phosphatase (38-126) U/L Total Protein (6.3-8.2) g/dL Albumin (3.5-5.0) g/dL 07/21/17 07/21/17 07/21/17 Range/Units 06:34 06:34 12:06 RBC (3.80-5.40) m/uL Hgb (11.4-16.0) gm/dL Hct (34.0-46.0) % RDW (11.5-15.5) % Lymphocytes # (1.0-4.8) k/uL PT 13.0 H (9.0-12.0) sec INR 1.3 H (<1.2) BUN 29 H (7-17) mg/dL Creatinine 2.20 H (0.52-1.04) mg/dL Glucose 254 H (74-99) mg/dL POC Glucose (mg/dL) 260 H (75-99) mg/dL Calcium 8.3 L (8.4-10.2) mg/dL Total Bilirubin 4.8 H (0.2-1.3) mg/dL AST 220 H (14-36) U/L ALT 292 H (9-52) U/L Alkaline Phosphatase 669 H (38-126) U/L Total Protein 5.7 L (6.3-8.2) g/dL Albumin 3.2 L (3.5-5.0) g/dL Microbiology - Last 24 Hours (Table) 07/19/17 18:15 Blood Culture - Preliminary Blood No Growth after 24 hours Diabetes panel 07/21/17 Range/Units 06:34 Sodium 141 (137-145) mmol/L Potassium 4.2 (3.5-5.1) mmol/L Chloride 106 (98-107) mmol/L Carbon Dioxide 23 (22-30) mmol/L BUN 29 H (7-17) mg/dL Creatinine 2.20 H (0.52-1.04) mg/dL Glucose 254 H (74-99) mg/dL Calcium 8.3 L (8.4-10.2) mg/dL AST 220 H (14-36) U/L ALT 292 H (9-52) U/L Alkaline Phosphatase 669 H (38-126) U/L Total Protein 5.7 L (6.3-8.2) g/dL Albumin 3.2 L (3.5-5.0) g/dL Calcium panel 07/21/17 Range/Units 06:34 Calcium 8.3 L (8.4-10.2) mg/dL Albumin 3.2 L (3.5-5.0) g/dL Pituitary panel 07/21/17 Range/Units 06:34 Sodium 141 (137-145) mmol/L Potassium 4.2 (3.5-5.1) mmol/L Chloride 106 (98-107) mmol/L Carbon Dioxide 23 (22-30) mmol/L BUN 29 H (7-17) mg/dL Creatinine 2.20 H (0.52-1.04) mg/dL Glucose 254 H (74-99) mg/dL Calcium 8.3 L (8.4-10.2) mg/dL Adrenal panel 07/21/17 Range/Units 06:34 Sodium 141 (137-145) mmol/L Potassium 4.2 (3.5-5.1) mmol/L Chloride 106 (98-107) mmol/L Carbon Dioxide 23 (22-30) mmol/L BUN 29 H (7-17) mg/dL Creatinine 2.20 H (0.52-1.04) mg/dL Glucose 254 H (74-99) mg/dL Calcium 8.3 L (8.4-10.2) mg/dL Total Bilirubin 4.8 H (0.2-1.3) mg/dL AST 220 H (14-36) U/L ALT 292 H (9-52) U/L Alkaline Phosphatase 669 H (38-126) U/L Total Protein 5.7 L (6.3-8.2) g/dL Albumin 3.2 L (3.5-5.0) g/dL Assessment and Plan Plan: Patient seen and evaluated with ENGINE INSPECTOR. Agreeable with pursuing ERCP as patient presents with intermittent and recurrent history of choledocholithiasis. Management per GI in the interim. HOPE surgical to follow in my absence as I will be out of town.
[2017-07-21] MEDS ORDERED: LIDOCAINE 1% INJ 10MG/ML (20 ML MDV) ONE (13:30)
[2017-07-21] MEDS ORDERED: GLYCOPYRROLATE 0.2 MG/ML 2 ML VIAL ONE (13:30)
[2017-07-21] MEDS ORDERED: PROPOFOL 10 MG/ML 20 ML VIAL IV ONE (13:30)
[2017-07-21] MEDS ORDERED: IV FLUID CONTINUATION 1,000 ML IV ONE (13:31)
--- NOTE | 2017-07-21 13:57 | P.PN ---
Subjective 62 yr old with history of HTN, PE comes into the hospital with complaints of right upper quadrant pain times 3 days. Pt also noted some fevers, came into the er, CT abdomen showed choledilithiais. pt was slightly tachycardic. Pt was initially admitted under another physician. we are taking over care per pt's request at this time, denies n/v, chest pain, federico, urinary urgency or frequency Objective - Vital Signs Vital signs: Vital Signs Temp 98.2 F 07/21/17 12:00 Pulse 93 07/21/17 12:00 Resp 20 07/21/17 12:00 BP 149/72 07/21/17 12:00 Pulse Ox 93 L 07/21/17 12:00 Intake & Output 07/20/17 07/21/17 07/21/17 18:59 06:59 18:59 Intake Total 600 Output Total 950 1400 700 Balance -350 -1400 -700 Weight 120 kg 121.4 kg Intake: Intake, IV Titration 600 Amount Sodium Chloride 0.9% 1, 500 000 ml @ 75 mls/hr IV . [id number] [facility] Rx#:[id number] metroNIDAZOLE-NS PMX 500 100 mg In Saline 1 100ml.bag @ 100 mls/hr IVPB Q6HR [facility] Rx#:[id number] Output: Urine 950 1400 700 Other: # Voids 1 1 1 - Constitutional General appearance: Present: no acute distress - EENT Eyes: Present: EOMI, PERRLA - Respiratory Respiratory: bilateral: CTA, negative: diminished, dullness, rales - Cardiovascular Rhythm: regular Heart sounds: normal: S1, S2 Abnormal Heart Sounds: Absent: systolic murmur - Gastrointestinal General gastrointestinal: Present: normal bowel sounds, soft. Absent: organomegaly, tenderness - Integumentary Integumentary: Present: normal - Neurologic Neurologic: Present: CNII-XII intact - Musculoskeletal Musculoskeletal: Present: gait normal - Psychiatric Psychiatric: Present: A&O x's 3 - Labs CBC & Chem 7: 07/21/17 06:34 07/21/17 06:34 Labs: Abnormal Lab Results - Last 24 Hours (Table) 07/20/17 07/21/17 07/21/17 Range/Units 17:15 00:08 06:04 RBC (3.80-5.40) m/uL Hgb (11.4-16.0) gm/dL Hct (34.0-46.0) % RDW (11.5-15.5) % Lymphocytes # (1.0-4.8) k/uL PT (9.0-12.0) sec INR (<1.2) BUN (7-17) mg/dL Creatinine (0.52-1.04) mg/dL Glucose (74-99) mg/dL POC Glucose (mg/dL) 202 H 244 H 240 H (75-99) mg/dL Calcium (8.4-10.2) mg/dL Total Bilirubin (0.2-1.3) mg/dL AST (14-36) U/L ALT (9-52) U/L Alkaline Phosphatase (38-126) U/L Total Protein (6.3-8.2) g/dL Albumin (3.5-5.0) g/dL 07/21/17 07/21/17 07/21/17 Range/Units 06:34 06:34 06:34 RBC 3.40 L (3.80-5.40) m/uL Hgb 10.1 L (11.4-16.0) gm/dL Hct 31.0 L (34.0-46.0) % RDW 15.9 H (11.5-15.5) % Lymphocytes # 0.8 L (1.0-4.8) k/uL PT 13.0 H (9.0-12.0) sec INR 1.3 H (<1.2) BUN 29 H (7-17) mg/dL Creatinine 2.20 H (0.52-1.04) mg/dL Glucose 254 H (74-99) mg/dL POC Glucose (mg/dL) (75-99) mg/dL Calcium 8.3 L (8.4-10.2) mg/dL Total Bilirubin 4.8 H (0.2-1.3) mg/dL AST 220 H (14-36) U/L ALT 292 H (9-52) U/L Alkaline Phosphatase 669 H (38-126) U/L Total Protein 5.7 L (6.3-8.2) g/dL Albumin 3.2 L (3.5-5.0) g/dL 07/21/17 Range/Units 12:06 RBC (3.80-5.40) m/uL Hgb (11.4-16.0) gm/dL Hct (34.0-46.0) % RDW (11.5-15.5) % Lymphocytes # (1.0-4.8) k/uL PT (9.0-12.0) sec INR (<1.2) BUN (7-17) mg/dL Creatinine (0.52-1.04) mg/dL Glucose (74-99) mg/dL POC Glucose (mg/dL) 260 H (75-99) mg/dL Calcium (8.4-10.2) mg/dL Total Bilirubin (0.2-1.3) mg/dL AST (14-36) U/L ALT (9-52) U/L Alkaline Phosphatase (38-126) U/L Total Protein (6.3-8.2) g/dL Albumin (3.5-5.0) g/dL Microbiology - Last 24 Hours (Table) 07/19/17 18:15 Blood Culture - Preliminary Blood No Growth after 24 hours Assessment and Plan Plan: Obstructive jaundice with choledolithiasis, and suspected underlying cholangitis h/o of PE HTN new onset diagnosis of DM2, likely due to pancreatic insufficiency. obtain HBa1c dyslipidemia Obesity h/o cholecystectomy plan abx for anerobes and gram negative organisms ERCP insulin levemir 10 units to start premeal sliding scale INR was reversed
[2017-07-21] MEDS ORDERED: IOHEXOL 300 MG/ML 50 ML BOTTLE INJ ONE (14:04)
--- NOTE | 2017-07-21 14:26 | P.PCN ---
Date of Procedure: 07/21/17 Preoperative Diagnosis: Postoperative Diagnosis: Procedure(s) Performed: Procedure: Endoscopic retrograde cholangiography with sphincterotomy and extraction of multiple common bile duct stones using the 8.5 and 11.5 mm balloon catheter Preoperative diagnosis: Cholangitis and sepsis. Today Postoperative diagnosis: 1. Multiple filling defects in the common bile duct suggestive of common bile duct stones. 2. Multiple stones retrieved after successful sphincterotomy using the 8.5 and 11.5 mm balloon catheters. 3. Repeat cholangiogram using the balloon catheter did not show any persistent filling defects in the common bile duct. Preparation sedation: Was provided by anesthesia. Brief clinical history: The patient is a 62-year-old female with history of cholecystectomy presented with fever and right upper quadrant abdominal pain and elevated liver enzymes and possible sepsis from acute cholangitis. CT reported possible choledocholithiasis in the distal CBD without dilation. History of pulmonary embolism requiring warfarin therapy since discontinued. Current INR 1.3. Total bilirubin increased to 4.8. MRCP attempted yesterday but unsuccessful secondary to body habitus. Still reports right upper quadrant discomfort. Afebrile. Blood cultures reporting no growth. The details are summarized in the history and physical and dictated consultation and progress notes. Procedure: With the patient in the prone position and after informed consent and adequate sedation, I passed the Olympus video duodenoscope down the esophagus into the stomach then passed it through the pylorus into the duodenum and brought the papilla into view. Initial cannulation and injection with dye resulted in opacification of the common bile duct and biliary tree. The common bile duct was slightly dilated and there were multiple filling defects consistent with stones. I therefore proceeded to exchange the catheter for a sphincterotome over the guidewire and performed adequate sphincterotomy. After that, I used the balloon catheter at 11.5 and 8.5 inflations to clear the common bile duct. Multiple stones were extracted and that was demonstrated endoscopically. After that I repeated the cholangiogram using the balloon to tamponade the sphincterotomy opening and there was no evidence of persistent filling defects in the common bile duct. The patient tolerated the procedure well. Plan: The patient was reassured. Will allow clear liquids today and anticipate advancing her diet tomorrow. Further plans based on her course. Implants: Indications for Procedure: Operative Findings: Description of Procedure:
--- NOTE | 2017-07-21 15:32 | FL ---
EXAMINATION TYPE: FL ERCP HISTORY: Fluoroscopy time Impression: 1. Fluoroscopy support provided to the referring physician. Fluoroscopy 4 minutes 10 seconds provided . 3 images submitted..
[2017-07-21] MEDS ORDERED: ONDANSETRON 4 MG/2 ML VIAL IVP PRN (15:47)
[2017-07-21 18:06] LABS: Glucose,Whole Blood 256 mg/dL (75-99)
[2017-07-21] MEDS ORDERED: INSULIN DETEMIR 100 UNIT/ML 10 ML VIAL SQ SCH (21:00)
[2017-07-21 23:57] LABS: Glucose,Whole Blood 206 mg/dL (75-99)
[2017-07-22] MEDS: INSULIN LISPRO (humaLOG) 300 UNIT/3 ML VIAL SQ SCH ×5 (00:03→21:03)
[2017-07-22] MEDS: MAGNESIUM OXIDE 400 MG TAB PO SCH ×2 (00:05→13:27)
[2017-07-22] MEDS: metroNIDAZOLE-NS PMX 500 MG in SALINE 1 100ML.BAG IVPB SCH ×2 (00:06→08:04)
[2017-07-22] MEDS: SODIUM CHLORIDE 0.9% 1,000 ML IV SCH ×3 (03:31→16:53)
[2017-07-22 06:35] LABS: Glucose,Whole Blood 176 mg/dL (75-99)
[2017-07-22 06:41] LABS: Anisocytosis Slight; Basophils % (A) 0 %; CH 29.7; CHCM 32.1; Eosinophils # (A) 0.2 k/uL (0-0.7); Eosinophils % (A) 2 %; HCT 32.7 % (34.0-46.0); HDW 2.42; HGB 10.5 gm/dL (11.4-16.0); Luc # (Auto) 0.24; Luc % (Auto) 2; Lymphocytes % (A) 10 %; MCH 29.9 pg (25.0-35.0); MCHC 32.1 g/dL (31.0-37.0); Mean Platelet Volume 8.5; Monocytes # (A) 0.7 k/uL (0-1.0); Monocytes % (A) 7 %; Neutrophils % (A) 79 %; RBC 3.52 m/uL (3.80-5.40); RDW 16.4 % (11.5-15.5); WBC 10.1 k/uL (3.8-10.6); WBC (Perox) 10.51
[2017-07-22 06:59] LABS: Calcium 8.2 mg/dL (8.4-10.2); Total Protein 5.9 g/dL (6.3-8.2)
[2017-07-22] MEDS: LORATADINE 10 MG TAB PO SCH (08:37)
[2017-07-22] MEDS: LEVOFLOXACIN 250MG-D5W PMX 250 MG in DEXTROSE/WATER 1 50ML.BAG IVPB SCH (09:12)
--- NOTE | 2017-07-22 09:37 | XR ---
EXAMINATION TYPE: XR chest 2V DATE OF EXAM: 07/22/2017 COMPARISON: 07/19/2017 HISTORY: Cough and shortness of breath TECHNIQUE: Frontal and lateral views of the chest are obtained. FINDINGS: There is no focal air space opacity, pleural effusion, or pneumothorax seen. Prominent hi la could again related relate to underlying pulmonary hypertension. The cardiac silhouette size is wi thin normal limits. The osseous structures are intact. IMPRESSION: 1. No acute cardiopulmonary process. 2. Stable hilar prominence may relate to underlying pulmonary hypertension.
--- NOTE | 2017-07-22 09:52 | P.PN ---
Subjective Principal diagnosis: Abdominal pain elevated liver enzymes Status post ERCP sphincterotomy yesterday with findings of retained common bile duct stones. Total bilirubin improved to 2.0. Denies abdominal pain. Objective - Vital Signs Vital signs: Vital Signs Temp 97.9 F 07/22/17 08:26 Pulse 90 07/22/17 08:26 Resp 16 07/22/17 08:26 BP 148/73 07/22/17 08:26 Pulse Ox 92 L 07/22/17 08:26 Intake & Output 07/21/17 07/22/17 07/22/17 18:59 06:59 18:59 Intake Total 300 100 200 Output Total 700 Balance -400 100 200 Intake: IV 300 Intake, IV Titration 200 Amount Levofloxacin 250Mg-D5w 100 Pmx 250 mg In Dextrose/ Water 1 50ml.bag @ 50 mls /hr IVPB Q24H [facility] Rx#: [id number] metroNIDAZOLE-NS PMX 500 100 mg In Saline 1 100ml.bag @ 100 mls/hr IVPB Q8HR [facility] Rx#:[id number] Oral 100 Output: Urine 700 Other: Voiding Method Toilet Toilet # Voids 1 1 1 - Exam General appearance: The patient is alert, oriented, in no acute distress. Jaundice. HET: Head is normocephalic and atraumatic. Pupils are equal and reactive. Sclerae icterus. Oropharynx is clear without lesions. Neck: Supple without lymphadenopathy. Trachea midline. Heart: S1 S2. Regular rate and rhythm. Lungs: No crackles or wheezes are heard. Abdomen: Soft, very mild right upper quadrant abdominal pain, nondistended with bowel sounds. No peritoneal signs. No palpable organomegaly or masses. Extremities: Normal skin color and turgor. No cyanosis, rash, ulceration, clubbing, or edema. Radial and pedal pulses are 2/4 bilaterally. Neurological: No focal deficits. Strength and sensation are grossly intact. - Labs CBC & Chem 7: 07/22/17 06:15 07/22/17 06:15 Labs: Abnormal Lab Results - Last 24 Hours (Table) 07/21/17 07/21/17 07/21/17 Range/Units 12:06 18:02 23:55 RBC (3.80-5.40) m/uL Hgb (11.4-16.0) gm/dL Hct (34.0-46.0) % RDW (11.5-15.5) % Neutrophils # (1.3-7.7) k/uL Chloride (98-107) mmol/L BUN (7-17) mg/dL Creatinine (0.52-1.04) mg/dL Glucose (74-99) mg/dL POC Glucose (mg/dL) 260 H 256 H 206 H (75-99) mg/dL Calcium (8.4-10.2) mg/dL Total Bilirubin (0.2-1.3) mg/dL AST (14-36) U/L ALT (9-52) U/L Alkaline Phosphatase (38-126) U/L Total Protein (6.3-8.2) g/dL Albumin (3.5-5.0) g/dL 07/22/17 07/22/17 07/22/17 Range/Units 06:15 06:15 06:34 RBC 3.52 L (3.80-5.40) m/uL Hgb 10.5 L (11.4-16.0) gm/dL Hct 32.7 L (34.0-46.0) % RDW 16.4 H (11.5-15.5) % Neutrophils # 8.0 H (1.3-7.7) k/uL Chloride 109 H (98-107) mmol/L BUN 27 H (7-17) mg/dL Creatinine 2.34 H (0.52-1.04) mg/dL Glucose 174 H (74-99) mg/dL POC Glucose (mg/dL) 176 H (75-99) mg/dL Calcium 8.2 L (8.4-10.2) mg/dL Total Bilirubin 2.0 H (0.2-1.3) mg/dL AST 118 H (14-36) U/L ALT 239 H (9-52) U/L Alkaline Phosphatase 619 H (38-126) U/L Total Protein 5.9 L (6.3-8.2) g/dL Albumin 3.3 L (3.5-5.0) g/dL Microbiology - Last 24 Hours (Table) 07/19/17 18:15 Blood Culture - Preliminary Blood No Growth after 48 hours Assessment and Plan Plan: Impression: 1. Sepsis secondary to acute cholangitis choledocholithiasis status post ERCP sphincterotomy. Recommendations: 1. Diet as tolerated. Discharge per medicine. We'll sign off. Assessment and plan a care discussed with Dr. Flynn
[2017-07-22 11:43] LABS: Hemoglobin A1C 7.1 % (4.2-6.1)
[2017-07-22 12:40] LABS: Glucose,Whole Blood 215 mg/dL (75-99)
[2017-07-22] MEDS ORDERED: QUEtiapine 25 MG TAB PO STA (13:11)
[2017-07-22] MEDS: amLODIPine 5 MG TAB PO SCH (13:26)
[2017-07-22] MEDS: CALCITRIOL 0.25 MCG CAP PO SCH (13:26)
--- NOTE | 2017-07-22 14:01 | P.PN ---
Progress Note - Text 62-year-old female was seen for a surgical eval known to Dr. Weeks service patient's ERCP sphincterotomy yesterday with findings of retained common bile duct stones. Total bilirubin improved to 2.0. Denies abdominal pain. There is no further surgical recommendations at this time. Will sign off and see patient if any surgical issues arise The above impression and plan of care have been discussed and directed by signing physician. Ellie Cope nurse practitioner acting as scribe for signing physician.
--- NOTE | 2017-07-22 16:14 | P.PN ---
Subjective Progress note being dictated for Dr. Garcia Interval history:62 yr old with history of HTN, PE comes into the hospital with complaints of right upper quadrant pain times 3 days. Pt also noted some fevers , came into the er, CT abdomen showed choledilithiais. pt was slightly tachycardic. Pt was initially admitted under another physician. we are taking over care per pt's request at this time, denies n/v, chest pain, federico, urinary urgency or frequency 07/22/2017 status post ERCP yesterday reporting, common bile duct stones retained., Tolerated procedure well. T bili much improved, 2.0. Renal function mildly worsened. Did not sleep well last night, confused, delirious. Afebrile. Denies abdominal pain. Denies chest pain, palpitations or increasing shortness of breath. Chest x-ray reporting stable hilar prominence possible underlying pulmonary hypertension, no focal airspace opacity, pleural effusion or pneumothorax. Objective - Vital Signs Vital signs: Vital Signs Temp 97.4 F L 07/22/17 10:15 Pulse 85 07/22/17 10:15 Resp 18 07/22/17 10:15 BP 154/82 07/22/17 10:15 Pulse Ox 94 L 07/22/17 10:15 Intake & Output 07/21/17 07/22/17 07/22/17 18:59 06:59 18:59 Intake Total 300 100 200 Output Total 700 Balance -400 100 200 Intake: IV 300 Intake, IV Titration 200 Amount Levofloxacin 250Mg-D5w 100 Pmx 250 mg In Dextrose/ Water 1 50ml.bag @ 50 mls /hr IVPB Q24H [facility] Rx#: [id number] metroNIDAZOLE-NS PMX 500 100 mg In Saline 1 100ml.bag @ 100 mls/hr IVPB Q8HR [facility] Rx#:[id number] Oral 100 Output: Urine 700 Other: Voiding Method Toilet Toilet Toilet # Voids 1 1 1 - Exam GENERAL: Sitting up at bedside, alert and oriented 2-3, pleasantly confused. HEENT: Pupils equal, sclerae icterus, oral mucosa moist. NECK: No JVD. No thyroid enlargement. No LNs CARDIOVASCULAR: S1, S2 muffled. No murmur, RESPIRATION: Breath sounds diminished in the bases. No rhonchi or crackles. No bronchial breathing. ABDOMEN: Soft, nontender . No guarding. no masses palpable. No ascites, No hepatosplenomegaly.Bowel sounds heard. LEGS: No edema. no swelling NERVOUS SYSTEM: Cranial N 2-12 grossly normal. Moves all 4 limbs. Strength and sensation grossly intact. Skin: no ulcer no rash Joints: No active swelling. No inflammation. Lymphatic system. No LN neck axilla or groin. - Labs CBC & Chem 7: 07/22/17 06:15 07/22/17 06:15 Labs: Abnormal Lab Results - Last 24 Hours (Table) 07/21/17 07/21/17 07/22/17 Range/Units 18:02 23:55 06:15 RBC (3.80-5.40) m/uL Hgb (11.4-16.0) gm/dL Hct (34.0-46.0) % RDW (11.5-15.5) % Neutrophils # (1.3-7.7) k/uL Chloride 109 H (98-107) mmol/L BUN 27 H (7-17) mg/dL Creatinine 2.34 H (0.52-1.04) mg/dL Glucose 174 H (74-99) mg/dL POC Glucose (mg/dL) 256 H 206 H (75-99) mg/dL Hemoglobin A1c (4.2-6.1) % Calcium 8.2 L (8.4-10.2) mg/dL Total Bilirubin 2.0 H (0.2-1.3) mg/dL AST 118 H (14-36) U/L ALT 239 H (9-52) U/L Alkaline Phosphatase 619 H (38-126) U/L Total Protein 5.9 L (6.3-8.2) g/dL Albumin 3.3 L (3.5-5.0) g/dL 07/22/17 07/22/17 07/22/17 Range/Units 06:15 06:15 06:34 RBC 3.52 L (3.80-5.40) m/uL Hgb 10.5 L (11.4-16.0) gm/dL Hct 32.7 L (34.0-46.0) % RDW 16.4 H (11.5-15.5) % Neutrophils # 8.0 H (1.3-7.7) k/uL Chloride (98-107) mmol/L BUN (7-17) mg/dL Creatinine (0.52-1.04) mg/dL Glucose (74-99) mg/dL POC Glucose (mg/dL) 176 H (75-99) mg/dL Hemoglobin A1c 7.1 H (4.2-6.1) % Calcium (8.4-10.2) mg/dL Total Bilirubin (0.2-1.3) mg/dL AST (14-36) U/L ALT (9-52) U/L Alkaline Phosphatase (38-126) U/L Total Protein (6.3-8.2) g/dL Albumin (3.5-5.0) g/dL 07/22/17 Range/Units 12:33 RBC (3.80-5.40) m/uL Hgb (11.4-16.0) gm/dL Hct (34.0-46.0) % RDW (11.5-15.5) % Neutrophils # (1.3-7.7) k/uL Chloride (98-107) mmol/L BUN (7-17) mg/dL Creatinine (0.52-1.04) mg/dL Glucose (74-99) mg/dL POC Glucose (mg/dL) 215 H (75-99) mg/dL Hemoglobin A1c (4.2-6.1) % Calcium (8.4-10.2) mg/dL Total Bilirubin (0.2-1.3) mg/dL AST (14-36) U/L ALT (9-52) U/L Alkaline Phosphatase (38-126) U/L Total Protein (6.3-8.2) g/dL Albumin (3.5-5.0) g/dL Microbiology - Last 24 Hours (Table) 07/19/17 18:15 Blood Culture - Preliminary Blood No Growth after 48 hours Assessment and Plan Plan: Sepsis secondary to Obstructive jaundice with choledolithiasis, and suspected underlying cholangitis status post ERCP h/o of PE HTN new onset diagnosis of DM2, likely due to pancreatic insufficiency. HBa1c 7.1 dyslipidemia Obesity h/o cholecystectomy Acute renal failure Acute metabolic encephalopathy secondary to sleep deprivation, post anesthesia delirium. plan: Continue abx for anerobes and gram negative organisms, IV fluids. Diet advancement as per GI. Increased insulin levemir 15 units. premeal sliding scale Seroquel initiated Discharge planning in progress for tomorrow.
[2017-07-22] MEDS: metroNIDAZOLE 500 MG TAB PO SCH ×2 (16:48→23:05)
[2017-07-22 16:57] LABS: Glucose,Whole Blood 219 mg/dL (75-99)
[2017-07-22 17:03] LABS: INR 1.1 (<1.2)
[2017-07-22 21:00] LABS: Glucose,Whole Blood 238 mg/dL (75-99)
[2017-07-22] MEDS ORDERED: INSULIN DETEMIR 100 UNIT/ML 10 ML VIAL SQ SCH (21:00)
[2017-07-22] MEDS ORDERED: QUEtiapine 25 MG TAB PO SCH (21:00)
[2017-07-23] MEDS: SODIUM CHLORIDE 0.9% 1,000 ML IV SCH ×3 (02:28→22:15)
[2017-07-23 07:25] LABS: Glucose,Whole Blood 186 mg/dL (75-99)
[2017-07-23 08:18] LABS: Appearance,Urine Clear (Clear); Bilirubin,Urine Negative (Negative); Glucose,Urine (UA) Negative (Negative); Ketones,Urine Negative (Negative); Leukocyte Esterase,Urine Negative (Negative); Nitrite,Urine Negative (Negative); PH, Urine 5.5 (5.0-8.0); Protein,Urine Negative (Negative); Specific Gravity,Urine 1.004 (1.001-1.035); UA Billing (MACRO vs. MICRO) CHEM; Urobilinogen,Urine <2.0 mg/dL (<2.0)
[2017-07-23 08:45] LABS: Anisocytosis Slight; Basophils % (A) 1 %; CH 29.7; CHCM 31.9; Eosinophils # (A) 0.2 k/uL (0-0.7); Eosinophils % (A) 3 %; HGB 9.7 gm/dL (11.4-16.0); Luc % (Auto) 2; Lymphocytes # (A) 1.2 k/uL (1.0-4.8); Lymphocytes % (A) 15 %; MCH 29.3 pg (25.0-35.0); MCHC 31.3 g/dL (31.0-37.0); MCV 93.8 fL (80.0-100.0); Mean Platelet Volume 8.3; Monocytes # (A) 0.7 k/uL (0-1.0); Monocytes % (A) 8 %; Neutrophils # (A) 5.9 k/uL (1.3-7.7); Neutrophils % (A) 71 %; RBC 3.31 m/uL (3.80-5.40); RDW 16.8 % (11.5-15.5); WBC 8.2 k/uL (3.8-10.6); WBC (Perox) 8.59
[2017-07-23 08:53] LABS: INR 1.1 (<1.2); Prothrombin Time 10.7 sec (9.0-12.0)
[2017-07-23 09:11] LABS: Calcium 8.1 mg/dL (8.4-10.2); Potassium 3.8 mmol/L (3.5-5.1)
[2017-07-23] MEDS: LEVOFLOXACIN 250 MG TAB PO SCH (10:24)
[2017-07-23] MEDS: LORATADINE 10 MG TAB PO SCH (10:24)
[2017-07-23] MEDS: amLODIPine 5 MG TAB PO SCH (10:25)
[2017-07-23] MEDS: CALCITRIOL 0.25 MCG CAP PO SCH (10:25)
[2017-07-23] MEDS: INSULIN LISPRO (humaLOG) 300 UNIT/3 ML VIAL SQ SCH ×4 (10:26→22:14)
[2017-07-23] MEDS: metroNIDAZOLE 500 MG TAB PO SCH ×2 (10:26→17:36)
[2017-07-23] MEDS ORDERED: Potassium Replacement Protocol 1 EACH MISC MISCELLANE PRN (10:39)
[2017-07-23 12:33] LABS: Glucose,Whole Blood 162 mg/dL (75-99)
[2017-07-23 13:32] LABS: Appearance,Urine Clear (Clear); Bilirubin,Urine Negative (Negative); Glucose,Urine (UA) Negative (Negative); Ketones,Urine Negative (Negative); PH, Urine 5.5 (5.0-8.0); Protein,Urine Negative (Negative); Specific Gravity,Urine 1.005 (1.001-1.035)
[2017-07-23 13:33] LABS: Leukocyte Esterase,Urine Negative (Negative); Nitrite,Urine Negative (Negative); UA Billing (MACRO vs. MICRO) CHEM; Urobilinogen,Urine <2.0 mg/dL (<2.0)
[2017-07-23] MEDS: MAGNESIUM OXIDE 400 MG TAB PO SCH (13:44)
--- NOTE | 2017-07-23 16:50 | P.CN ---
Psychiatric Consult - . Consult date: 07/23/17 Consult:: 07/23/17 16:36 Identification and Reason for Consult: Patient is a 62-year-old female who was admitted after she came to the emergency room complaining of right flank pain and shortness of breath. Consultation is requested for delirium, chart was reviewed, I spoke with her nurse and family was present. History of Present Illness: Patient states that she came to the hospital with complaints of right flank plane and shortness of breath and was admitted and had an ERCP on July 21 for obstructive jaundice. Patient stated to me that she "heard people say that they took my car way" and she states that she hears people saying that she is being discharged. Period she also reported to me that she thinks people are going through her purse when she was distracted. She states that people of gone into her home and when I asked her why she had these thoughts she asked me to speak with her physician. Patient states that she slept last evening but did not sleep the night prior to that. She reported that she was hearing voices that she described as her family crying this was yesterday she is not currently having that. She states that she possibly wasn' t thinking very clearly after the procedure. Patient states that she feels people are trying to prevent her from leaving and going home she was unable to explain to me why this would be occurring and who these people were. Patient does not endorse any symptoms of depression currently or in the past, no manic symptoms or complaints of anxiety currently in the past. Patient does state that when she was admitted in 2014 for acute renal failure that she did feel out of it she was uncertain if she had similar suspicious thoughts that she is having currently. Past Psychiatric History: Patient denies any prior history of inpatient or outpatient psychiatric care and has never been on any psychotropic medication. Patient has no prior history of suicide attempts. Past Medical/Surgical History: Patient has a history of diabetes, hypertension, hyperlipidemia, DVT, CAD and is status post pulmonary embolism she states she is status post cholecystectomy and an appendectomy. Current Medications Acetaminophen (Tylenol Tab) 650 mg PO Q6HR PRN PRN Reason: Mild Pain or Fever > 100.5 Hydrocodone Bitart/Acetaminophen ([place] 5-325) 1 each PO Q6HR PRN PRN Reason: Moderate Pain Amlodipine Besylate (Norvasc) 5 mg PO QAM [facility] Last Admin: 07/23/17 10:25 Dose: 5 mg Calcitriol (Rocaltrol) 0.5 mcg PO DAILY [facility] Last Admin: 07/23/17 10:25 Dose: 0.5 mcg Calcium Carbonate/Glycine (Tums) 1,000 mg PO Q4HR PRN PRN Reason: Dyspepsia Ergocalciferol (Vitamin D2) 50,000 unit PO Q30D [facility] Sodium Chloride (Saline 0.9%) 1,000 mls @ 100 mls/hr IV .Q10H [facility] Last Admin: 07/23/17 13:44 Dose: 100 mls/hr Insulin Detemir (Levemir) 15 unit SQ HS [facility] Last Admin: 07/22/17 21:03 Dose: 15 unit Insulin Human Lispro (Humalog) 0 unit SQ ACHS [facility] PRN Reason: Protocol Last Admin: 07/23/17 13:45 Dose: 2 unit Levofloxacin (Levaquin) 250 mg PO Q24H [facility] Last Admin: 07/23/17 10:24 Dose: 250 mg Loratadine (Claritin) 5 mg PO DAILY [facility] Last Admin: 07/23/17 10:24 Dose: 5 mg Magnesium Oxide (Mag-Ox) 400 mg PO DAILY@1200 [facility] Last Admin: 07/23/17 13:44 Dose: 400 mg Menthol (Nice Cough Drops) 1 each MUCOUS MEM Q2H PRN PRN Reason: Sore Throat Metronidazole (Flagyl) 500 mg PO Q8HR [facility] Last Admin: 07/23/17 10:26 Dose: 500 mg Miscellaneous Information (Potassium Per Protocol) 1 each MISCELLANE DAILY PRN ; Protocol PRN Reason: Per Protocol Morphine Sulfate (Morphine Sulfate (Inj)) 4 mg IV Q4HR PRN PRN Reason: Severe Pain Naloxone HCl (Narcan) 0.2 mg IV Q2M PRN PRN Reason: Opioid Reversal Ondansetron HCl (Zofran) 4 mg IVP Q6HR PRN PRN Reason: Nausea And Vomiting Last Admin: 07/21/17 16:13 Dose: 4 mg Risperidone (Risperdal) 0.5 mg PO DAILY@1900 [facility] Social History: Patient has never been and has no children she lives alone in a duplex and states that she has been caring for her activities of daily living and paying her own bills. 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 Patient states that she then went to college and obtained a bachelor's degree. 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 She denies any prior history of abuse. She states she has many friends and is active at home and does drive her own car. Substance Use History: Patient states that she has an occasional glass of wine but has never used alcohol to excess, she denies any current or prior drug use and denies any prior tobacca use. Mental Status:Appearance/Attitude: Patient is sitting at the side of her bed and is no acute distress makes good eye contact and is cooperative. Behavior: Patient is not exhibiting any psychomotor agitation or retardation Speech/Language: Patient's speech was spontaneous, normal volume and rhythm and she was coherent. Thought Process: Patient was goal-directed there is no evidence of any circumstantial or tangential thought and no loose associations or flight of ideas. Thought Content: Patient states she was having auditory hallucinations the other day hearing her family crying but she denies any currently, she denies any visual hallucinations. She does express paranoid ideation stating that people of taking her car away, people say she is leaving, people gone through her purse, and that they have gone to her home and gone through her home. When I asked the patient if any of this made sense she was able to question whether this was valid. Patient stated she slept well last evening but did not sleep well the night prior. Suicidal/Homicidal Ideation: Patient denies any current suicidal or homicidal ideation. Sensorium/Cognition: Patient is alert and oriented to person, place, and time and her memory is grossly intact. Mood/Affect: Patient's mood is suspicious and her affect is appropriate to her mood. Insight/Judgement: Patient's insight and judgment are fair. Assessment: patient presented to the emergency room complaining of right flank pain and was found to have obstructive jaundice and had an ERCP on July 21. Patient appears to become delirious after that period of time and received Seroquel 12.5 mg on the and 25 mg at bedtime. Today when I saw the patient she was not confused, had no alteration in her level of consciousness but was verbalizing paranoid ideation regarding people looking in her purse taking her car going into her home. When I asked her if any of this made any sense she told me that it did not, she states she had a similar reaction when she was admitted in 2015 for acute renal failure. Patient has no prior psychiatric history and this appears to be a response to her illness, surgical procedure and pain medication. Diagnosis: delirium, multiple etiologies Plan: I discussed with the patient changing her Seroquel to Risperdal, and will begin 0.5 mg at 7 PM. Should this resolved the patient's paranoid ideation she should be discharged on 3 days worth of Risperdal and then it should be discontinued. Patient was aware of why was prescribing the Risperdal to target her suspicions and she was agreeable to take the medication as she stated that these were somewhat bothersome to her. There are any questions or concerns please don't hesitate to contact me. 07/23/17 16:38
--- NOTE | 2017-07-23 16:58 | P.PN ---
Subjective Progress note being dictated for Dr. Headley. Interval history:62 yr old with history of HTN, PE comes into the hospital with complaints of right upper quadrant pain times 3 days. Pt also noted some fevers , came into the er, CT abdomen showed choledilithiais. pt was slightly tachycardic. Pt was initially admitted under another physician. we are taking over care per pt's request at this time, denies n/v, chest pain, federico, urinary urgency or frequency 07/22/2017 status post ERCP yesterday reporting, common bile duct stones retained., Tolerated procedure well. T bili much improved, 2.0. Renal function mildly worsened. Did not sleep well last night, confused, delirious. Afebrile. Denies abdominal pain. Denies chest pain, palpitations or increasing shortness of breath. Chest x-ray reporting stable hilar prominence possible underlying pulmonary hypertension, no focal airspace opacity, pleural effusion or pneumothorax. 07/23/17 . Slept Better last night. Tolerating diet with no nausea or vomiting. Remains delirious, paranoid., [facility] staff has been accessing her phone texts, hears voices in hallway states family has been taken out, accusing staff of a unlocking her vehicle and having it towed away, accusing staff of going into her house. Renal function improving. Patient reported she has her insulin pump and her purse, verified by nurse. Denies chest pain, palpitations or increasing shortness of breath. T-max 99.2. Objective - Vital Signs Vital signs: Vital Signs Temp 97.8 F 07/23/17 15:00 Pulse 86 07/23/17 15:00 Resp 18 07/23/17 15:00 BP 155/84 07/23/17 15:00 Pulse Ox 93 L 07/23/17 15:00 Intake & Output 07/22/17 07/23/17 07/23/17 18:59 06:59 18:59 Intake Total 200 240 Balance 200 240 Weight 121.4 kg Intake: Intake, IV Titration 200 Amount Levofloxacin 250Mg-D5w 100 Pmx 250 mg In Dextrose/ Water 1 50ml.bag @ 50 mls /hr IVPB Q24H [facility] Rx#: [id number] metroNIDAZOLE-NS PMX 500 100 mg In Saline 1 100ml.bag @ 100 mls/hr IVPB Q8HR [facility] Rx#:[id number] Oral 240 Other: Voiding Method Toilet Toilet # Voids 1 2 4 # Bowel Movements 1 1 - Exam GENERAL: Sitting up at bedside, alert, confused, delirious HEENT: Pupils equal, oral mucosa moist. NECK: Supple, No JVD. CARDIOVASCULAR: S1, S2 muffled. No murmur, RESPIRATION: Breath sounds diminished in the bases. No rhonchi or crackles. No bronchial breathing. ABDOMEN: Soft, nontender . No guarding. no masses palpable. No ascites, No hepatosplenomegaly.Bowel sounds heard. LEGS: No edema. no swelling NERVOUS SYSTEM: Cranial N 2-12 grossly normal. Moves all 4 limbs. Strength and sensation grossly intact. Skin: no ulcer no rash Joints: No active swelling. No inflammation. - Labs CBC & Chem 7: 07/23/17 07:59 07/23/17 07:59 Labs: Abnormal Lab Results - Last 24 Hours (Table) 07/22/17 07/22/17 07/23/17 Range/Units 16:45 20:57 07:19 RBC (3.80-5.40) m/uL Hgb (11.4-16.0) gm/dL Hct (34.0-46.0) % RDW (11.5-15.5) % Chloride (98-107) mmol/L BUN (7-17) mg/dL Creatinine (0.52-1.04) mg/dL Glucose (74-99) mg/dL POC Glucose (mg/dL) 219 H 238 H 186 H (75-99) mg/dL Calcium (8.4-10.2) mg/dL 07/23/17 07/23/17 07/23/17 Range/Units 07:59 07:59 12:27 RBC 3.31 L (3.80-5.40) m/uL Hgb 9.7 L (11.4-16.0) gm/dL Hct 31.0 L (34.0-46.0) % RDW 16.8 H (11.5-15.5) % Chloride 108 H (98-107) mmol/L BUN 25 H (7-17) mg/dL Creatinine 2.08 H (0.52-1.04) mg/dL Glucose 157 H (74-99) mg/dL POC Glucose (mg/dL) 162 H (75-99) mg/dL Calcium 8.1 L (8.4-10.2) mg/dL Microbiology - Last 24 Hours (Table) 07/19/17 18:15 Blood Culture - Preliminary Blood No Growth after 72 hours Assessment and Plan Plan: Sepsis secondary to Obstructive jaundice with choledolithiasis, and suspected underlying cholangitis status post ERCP h/o of PE HTN DM2, likely due to pancreatic insufficiency. HBa1c 7.1(patient has insulin pump ) dyslipidemia Obesity h/o cholecystectomy Acute renal failure Acute metabolic encephalopathy secondary to sleep deprivation, post anesthesia delirium. plan: Psychiatry consulted. Repeat CMP in a.m. Continue abx for anerobes and gram negative organisms, IV fluids. Increased insulin levemir 18 units. Once delirium, confusion resolves, will switch back to insulin pump. Discharge planning in progress.
[2017-07-23 17:21] LABS: Glucose,Whole Blood 138 mg/dL (75-99)
[2017-07-23] MEDS: risperiDONE 0.5 MG TAB PO SCH (19:57)
[2017-07-23 20:45] LABS: Glucose,Whole Blood 152 mg/dL (75-99)
[2017-07-23] MEDS ORDERED: INSULIN DETEMIR 100 UNIT/ML 10 ML VIAL SQ SCH (21:00)
[2017-07-24] MEDS: metroNIDAZOLE 500 MG TAB PO SCH ×4 (00:11→23:42)
[2017-07-24 07:45] LABS: Glucose,Whole Blood 186 mg/dL (75-99)
[2017-07-24 07:54] LABS: Prothrombin Time 10.6 sec (9.0-12.0)
[2017-07-24] MEDS: INSULIN LISPRO (humaLOG) 300 UNIT/3 ML VIAL SQ SCH ×4 (08:06→21:30)
[2017-07-24] MEDS: LORATADINE 10 MG TAB PO SCH ×2 (08:06→08:09)
[2017-07-24] MEDS: amLODIPine 5 MG TAB PO SCH (08:07)
[2017-07-24] MEDS: LEVOFLOXACIN 250 MG TAB PO SCH (08:07)
[2017-07-24] MEDS: CALCITRIOL 0.25 MCG CAP PO SCH (08:07)
[2017-07-24 11:49] LABS: Calcium 8.4 mg/dL (8.4-10.2); Potassium 3.8 mmol/L (3.5-5.1); Total Bilirubin 1.3 mg/dL (0.2-1.3); Total Protein 5.6 g/dL (6.3-8.2)
[2017-07-24 12:20] LABS: Glucose,Whole Blood 199 mg/dL (75-99)
[2017-07-24] MEDS: ENOXAPARIN 120 MG/0.8 ML SYRINGE SQ SCH (12:39)
[2017-07-24] MEDS: MAGNESIUM OXIDE 400 MG TAB PO SCH (12:40)
[2017-07-24] MEDS: PANTOPRAZOLE 40 MG/10 ML VIAL IVP SCH (12:42)
[2017-07-24] MEDS: SODIUM CHLORIDE 0.9% 1,000 ML IV SCH ×6 (12:47→23:42)
[2017-07-24 17:14] LABS: Glucose,Whole Blood 214 mg/dL (75-99)
[2017-07-24] MEDS ORDERED: WARFARIN 3 MG TAB PO SCH (18:00)
--- NOTE | 2017-07-24 18:47 | P.PN ---
Subjective Progress note being dictated for Dr. Alvarez Interval history:62 yr old with history of HTN, PE comes into the hospital with complaints of right upper quadrant pain times 3 days. Pt also noted some fevers , came into the er, CT abdomen showed choledilithiais. pt was slightly tachycardic. Pt was initially admitted under another physician. we are taking over care per pt's request at this time, denies n/v, chest pain, federico, urinary urgency or frequency 07/22/2017 status post ERCP yesterday reporting, common bile duct stones retained., Tolerated procedure well. T bili much improved, 2.0. Renal function mildly worsened. Did not sleep well last night, confused, delirious. Afebrile. Denies abdominal pain. Denies chest pain, palpitations or increasing shortness of breath. Chest x-ray reporting stable hilar prominence possible underlying pulmonary hypertension, no focal airspace opacity, pleural effusion or pneumothorax. 07/23/17 . Slept Better last night. Tolerating diet with no nausea or vomiting. Remains delirious, paranoid., States staff has been accessing her phone texts, hears voices in hallway states family has been taken out, accusing staff of a unlocking her vehicle and having it towed away, accusing staff of going into her house. Renal function improving. Patient reported she has her insulin pump and her purse, verified by nurse. Denies chest pain, palpitations or increasing shortness of breath. T-max 99. 07/24/2017. T bili and LFTs improving, T bili 1.3. Renal function improving. Good diet intake with no nausea vomiting or diarrhea. Denies abdominal pain. INR 1. Evaluated by psychiatry, yesterday; Seroquel discontinued, with Risperdal initiated. Remains delusional, paranoid, hiding keys between her breasts, persists tightly wedged between her knees. States she hears that there is a cart outside to take her away. Sisters at bedside. Blood sugars better controlled. Denies chest pain, palpitations or increasing shortness of breath. Maintaining O2 sats of 96% on room air. Afebrile. Objective - Vital Signs Vital signs: Vital Signs Temp 97.1 F L 07/24/17 07:00 Pulse 85 07/24/17 07:00 Resp 18 07/24/17 08:00 BP 160/85 07/24/17 07:00 Pulse Ox 96 07/24/17 07:00 Intake & Output 07/23/17 07/24/17 07/24/17 18:59 06:59 18:59 Intake Total 240 Balance 240 Intake: Oral 240 Other: Voiding Method Toilet # Voids 4 2 # Bowel Movements 1 - Exam GENERAL: Alert and oriented 2 ,Sitting up at bedside, alert, confused, delirious, paranoid, avoiding eye contact at times HEENT: Pupils equal, oral mucosa moist. NECK: Supple, No JVD. CARDIOVASCULAR: S1, S2 muffled. No murmur, RESPIRATION: Breath sounds diminished in the bases. No rhonchi or crackles. No bronchial breathing. ABDOMEN: Soft, nontender . No guarding. no masses palpable. No ascites, No hepatosplenomegaly.Bowel sounds heard. LEGS: No edema. no swelling NERVOUS SYSTEM: Cranial N 2-12 grossly normal. Moves all 4 limbs. Strength and sensation grossly intact. Skin: no ulcer no rash Joints: No active swelling. No inflammation. - Labs CBC & Chem 7: 07/23/17 07:59 07/24/17 07:07 Labs: Abnormal Lab Results - Last 24 Hours (Table) 07/23/17 07/23/17 07/24/17 Range/Units 17:12 20:44 07:07 Chloride 109 H (98-107) mmol/L BUN 21 H (7-17) mg/dL Creatinine 1.96 H (0.52-1.04) mg/dL Glucose 165 H (74-99) mg/dL POC Glucose (mg/dL) 138 H 152 H (75-99) mg/dL AST 109 H (14-36) U/L ALT 164 H (9-52) U/L Alkaline Phosphatase 490 H (38-126) U/L Total Protein 5.6 L (6.3-8.2) g/dL Albumin 3.2 L (3.5-5.0) g/dL 07/24/17 07/24/17 Range/Units 07:17 12:06 Chloride (98-107) mmol/L BUN (7-17) mg/dL Creatinine (0.52-1.04) mg/dL Glucose (74-99) mg/dL POC Glucose (mg/dL) 186 H 199 H (75-99) mg/dL AST (14-36) U/L ALT (9-52) U/L Alkaline Phosphatase (38-126) U/L Total Protein (6.3-8.2) g/dL Albumin (3.5-5.0) g/dL Microbiology - Last 24 Hours (Table) 07/19/17 18:15 Blood Culture - Preliminary Blood No Growth after 96 hours 07/23/17 12:20 Urine Culture - Preliminary Urine,Voided Assessment and Plan Plan: Sepsis secondary to Obstructive jaundice with choledolithiasis, and suspected underlying cholangitis status post ERCP h/o of PE HTN DM2, likely due to pancreatic insufficiency. HBa1c 7.1(patient has insulin pump ) dyslipidemia Morbid Obesity, BMI 43.2 h/o cholecystectomy Acute renal failure Acute metabolic encephalopathy secondary to sleep deprivation, post anesthesia delirium. plan: Continue on current medication regime , antibiotics, IV fluids,monitoring , and symptomatic treatment. claims service representative placed. Sisters at bedside, updated and discussed plan of care. Coumadin / Lovenox with daily PT/ INRs. close monitoring of TB bili, LFTs and renal function with repeat labs ordered for a.m. Unable to place insulin pump back on patient given her current mental state, will increase Levemir. Close monitoring of Accu-Cheks. Follow closely with psychiatry. Prognosis guarded, given multiple complex medical issues. The impression and plan of care has been dictated as directed. : I performed a H&P examination of this patient and discussed the same with the dictator. I agree with the dictator's note. Any additional findings/opinions/ etc. will be noted.
[2017-07-24 20:53] LABS: Glucose,Whole Blood 201 mg/dL (75-99)
[2017-07-24] MEDS: risperiDONE 0.5 MG TAB PO SCH (21:29)
[2017-07-24] MEDS: INSULIN DETEMIR 100 UNIT/ML 10 ML VIAL SQ SCH (21:30)
[2017-07-25 07:30] LABS: Glucose,Whole Blood 87 mg/dL (75-99)
[2017-07-25] MEDS: INSULIN LISPRO (humaLOG) 300 UNIT/3 ML VIAL SQ SCH ×4 (07:35→21:01)
[2017-07-25 07:56] LABS: Anisocytosis Slight; Basophils % (A) 1 %; CH 29.8; CHCM 32.7; Eosinophils # (A) 0.2 k/uL (0-0.7); Eosinophils % (A) 2 %; HCT 31.7 % (34.0-46.0); HDW 2.46; HGB 10.2 gm/dL (11.4-16.0); Luc # (Auto) 0.18; Luc % (Auto) 2; Lymphocytes # (A) 1.2 k/uL (1.0-4.8); Lymphocytes % (A) 15 %; MCH 29.5 pg (25.0-35.0); MCHC 32.1 g/dL (31.0-37.0); MCV 91.9 fL (80.0-100.0); Mean Platelet Volume 8.3; Monocytes # (A) 0.6 k/uL (0-1.0); Monocytes % (A) 8 %; Neutrophils # (A) 5.8 k/uL (1.3-7.7); Neutrophils % (A) 73 %; RBC 3.45 m/uL (3.80-5.40); RDW 17.5 % (11.5-15.5)
[2017-07-25] MEDS: SODIUM CHLORIDE 0.9% 1,000 ML IV SCH ×3 (08:00→23:58)
[2017-07-25 08:03] LABS: INR 1.1 (<1.2); Prothrombin Time 10.7 sec (9.0-12.0)
[2017-07-25 08:08] LABS: Calcium 8.7 mg/dL (8.4-10.2); Potassium 3.8 mmol/L (3.5-5.1); Total Bilirubin 0.9 mg/dL (0.2-1.3); Total Protein 5.8 g/dL (6.3-8.2)
[2017-07-25] MEDS: metroNIDAZOLE 500 MG TAB PO SCH ×3 (08:50→23:57)
[2017-07-25] MEDS: MAGNESIUM OXIDE 400 MG TAB PO SCH (10:02)
[2017-07-25] MEDS: CALCITRIOL 0.25 MCG CAP PO SCH (10:02)
[2017-07-25] MEDS: LEVOFLOXACIN 250 MG TAB PO SCH (10:02)
[2017-07-25] MEDS: ENOXAPARIN 120 MG/0.8 ML SYRINGE SQ SCH (10:02)
[2017-07-25] MEDS: PANTOPRAZOLE 40 MG/10 ML VIAL IVP SCH (10:02)
[2017-07-25] MEDS: amLODIPine 5 MG TAB PO SCH (10:03)
[2017-07-25] MEDS: LORATADINE 10 MG TAB PO SCH (10:03)
--- NOTE | 2017-07-25 12:16 | PN ---
DATE OF SERVICE: 07/24/2017 This 62-year-old woman was admitted with sepsis secondary to cholelithiasis, had ERCP. Seen and evaluated with the nurse practitioner. PAST MEDICAL HISTORY: Reviewed. REVIEW OF SYSTEMS: CARDIOVASCULAR: No angina. RESPIRATORY: As mentioned earlier. GI: No nausea. : No dysuria. NERVOUS SYSTEM: No numbness or weakness. Current medications are reviewed and include: 1. Tylenol p.r.n. 2. [place]. 3. Rocaltrol. 4. Vitamin D3. 5. Levaquin. 6. Claritin. 7. Flagyl. 8. Narcan. 9. Protonix. RECOMMENDATIONS AND DISCUSSION: This 62-year-old woman presented with multiple complex medical issues, we well monitor the patient closely. Continue the current medications. Continue symptomatic treatment. Patient also has features of acute delirium. Continue the antibiotics and social services technician and registered nurse hh case manager to arrange for home discharge also. Guarded prognosis. Further recommendations to follow. [facility]
[2017-07-25 12:41] LABS: Glucose,Whole Blood 136 mg/dL (75-99)
--- NOTE | 2017-07-25 17:35 | P.PN ---
Subjective Progress note being dictated for Dr. Alvarez Interval history:62 yr old with history of HTN, PE comes into the hospital with complaints of right upper quadrant pain times 3 days. Pt also noted some fevers , came into the er, CT abdomen showed choledilithiais. pt was slightly tachycardic. Pt was initially admitted under another physician. we are taking over care per pt's request at this time, denies n/v, chest pain, federico, urinary urgency or frequency 07/22/2017 status post ERCP yesterday reporting, common bile duct stones retained., Tolerated procedure well. T bili much improved, 2.0. Renal function mildly worsened. Did not sleep well last night, confused, delirious. Afebrile. Denies abdominal pain. Denies chest pain, palpitations or increasing shortness of breath. Chest x-ray reporting stable hilar prominence possible underlying pulmonary hypertension, no focal airspace opacity, pleural effusion or pneumothorax. 07/23/17 . Slept Better last night. Tolerating diet with no nausea or vomiting. Remains delirious, paranoid., States staff has been accessing her phone texts, hears voices in hallway states family has been taken out, accusing staff of a unlocking her vehicle and having it towed away, accusing staff of going into her house. Renal function improving. Patient reported she has her insulin pump and her purse, verified by nurse. Denies chest pain, palpitations or increasing shortness of breath. T-max 99. 07/24/2017. T bili and LFTs improving, T bili 1.3. Renal function improving. Good diet intake with no nausea vomiting or diarrhea. Denies abdominal pain. INR 1. Evaluated by psychiatry, yesterday; Seroquel discontinued, with Risperdal initiated. Remains delusional, paranoid, hiding keys between her breasts, persists tightly wedged between her knees. States she hears that there is a cart outside to take her away. Sisters at bedside. Blood sugars better controlled. Denies chest pain, palpitations or increasing shortness of breath. Maintaining O2 sats of 96% on room air. Afebrile. 2016 T bili 0.9, Anticoagulated on Lovenox and Coumadin with INR 1.1. Creatinine mildly improved. Continues to be delusional, paranoid, depressed, crying. Sitter at bedside. Objective - Vital Signs Vital signs: Vital Signs Temp 98.6 F 07/25/17 15:00 Pulse 91 07/25/17 15:00 Resp 16 07/25/17 15:00 BP 167/76 07/25/17 15:00 Pulse Ox 95 07/25/17 15:00 Intake & Output 07/24/17 07/25/17 07/25/17 18:59 06:59 18:59 Intake Total 300 700 Balance 300 700 Weight 121.4 kg Intake: Intake, IV Titration 700 Amount Sodium Chloride 0.9% 1, 700 000 ml @ 125 mls/hr IV . Q8H [facility] Rx#:[id number] Oral 300 Other: Voiding Method Toilet Toilet Toilet # Voids 3 1 3 - Exam GENERAL: Alert and oriented 2 ,Sitting up at bedside, alert, confused, delirious, paranoid, crying, avoiding eye contact at times HEENT: Pupils equal, oral mucosa moist. NECK: Supple, No JVD. CARDIOVASCULAR: S1, S2 muffled. No murmur, RESPIRATION: Breath sounds diminished in the bases. No rhonchi or crackles. No bronchial breathing. ABDOMEN: Soft, nontender . No guarding. no masses palpable. No ascites, No hepatosplenomegaly.Bowel sounds heard. LEGS: No edema. no swelling NERVOUS SYSTEM: Cranial N 2-12 grossly normal. Moves all 4 limbs. Strength and sensation grossly intact. Skin: no ulcer no rash Joints: No active swelling. No inflammation. - Labs CBC & Chem 7: 07/25/17 07:17 07/25/17 07:17 Labs: Abnormal Lab Results - Last 24 Hours (Table) 07/24/17 07/25/17 07/25/17 Range/Units 20:49 07:17 07:17 RBC 3.45 L (3.80-5.40) m/uL Hgb 10.2 L (11.4-16.0) gm/dL Hct 31.7 L (34.0-46.0) % RDW 17.5 H (11.5-15.5) % Chloride 109 H (98-107) mmol/L BUN 18 H (7-17) mg/dL Creatinine 1.91 H (0.52-1.04) mg/dL POC Glucose (mg/dL) 201 H (75-99) mg/dL AST 97 H (14-36) U/L ALT 151 H (9-52) U/L Alkaline Phosphatase 455 H (38-126) U/L Total Protein 5.8 L (6.3-8.2) g/dL Albumin 3.3 L (3.5-5.0) g/dL 07/25/17 Range/Units 12:33 RBC (3.80-5.40) m/uL Hgb (11.4-16.0) gm/dL Hct (34.0-46.0) % RDW (11.5-15.5) % Chloride (98-107) mmol/L BUN (7-17) mg/dL Creatinine (0.52-1.04) mg/dL POC Glucose (mg/dL) 136 H (75-99) mg/dL AST (14-36) U/L ALT (9-52) U/L Alkaline Phosphatase (38-126) U/L Total Protein (6.3-8.2) g/dL Albumin (3.5-5.0) g/dL Microbiology - Last 24 Hours (Table) 07/19/17 18:15 Blood Culture - Preliminary Blood No Growth after 120 hours 07/23/17 12:20 Urine Culture - Final Urine,Voided Assessment and Plan Plan: Sepsis secondary to Obstructive jaundice with choledolithiasis, and suspected underlying cholangitis status post ERCP h/o of PE HTN DM2, likely due to pancreatic insufficiency. HBa1c 7.1(patient has insulin pump ) dyslipidemia Morbid Obesity, BMI 43.2 h/o cholecystectomy Acute renal failure Acute metabolic encephalopathy secondary to sleep deprivation, post anesthesia delirium Depression. plan: Continue on current medication regime , antibiotics, IV fluids,monitoring , and symptomatic treatment. Maintain industrial safety and health specialist. Psychiatry reevaluation requested, recommendations pending. Social work consult placed. Further recommendations to follow. The impression and plan of care has been dictated as directed. : I performed a H&P examination of this patient and discussed the same with the dictator. I agree with the dictator's note. Any additional findings/opinions/ etc. will be noted.
[2017-07-25 17:37] LABS: Glucose,Whole Blood 144 mg/dL (75-99)
[2017-07-25] MEDS ORDERED: WARFARIN 10 MG TAB PO ONE (18:00)
[2017-07-25] MEDS: risperiDONE 0.5 MG TAB PO SCH (18:38)
[2017-07-25 20:57] LABS: Glucose,Whole Blood 145 mg/dL (75-99)
[2017-07-25] MEDS: INSULIN DETEMIR 100 UNIT/ML 10 ML VIAL SQ SCH (21:01)
[2017-07-26 07:24] LABS: Glucose,Whole Blood 108 mg/dL (75-99)
[2017-07-26] MEDS: INSULIN LISPRO (humaLOG) 300 UNIT/3 ML VIAL SQ SCH ×4 (07:31→21:16)
[2017-07-26] MEDS: PANTOPRAZOLE 40 MG/10 ML VIAL IVP SCH (07:34)
[2017-07-26] MEDS: metroNIDAZOLE 500 MG TAB PO SCH ×2 (07:34→15:17)
[2017-07-26] MEDS: amLODIPine 5 MG TAB PO SCH (07:35)
[2017-07-26] MEDS: MAGNESIUM OXIDE 400 MG TAB PO SCH (07:35)
[2017-07-26] MEDS: CALCITRIOL 0.25 MCG CAP PO SCH (07:35)
[2017-07-26] MEDS: LEVOFLOXACIN 250 MG TAB PO SCH (07:35)
[2017-07-26] MEDS: LORATADINE 10 MG TAB PO SCH (07:35)
[2017-07-26] MEDS: SODIUM CHLORIDE 0.9% 1,000 ML IV SCH ×2 (07:36→15:17)
[2017-07-26] MEDS: ENOXAPARIN 120 MG/0.8 ML SYRINGE SQ SCH (07:36)
[2017-07-26 09:09] LABS: Anisocytosis Slight; Basophils % (A) 1 %; CH 29.9; CHCM 32.4; Eosinophils # (A) 0.1 k/uL (0-0.7); Eosinophils % (A) 2 %; HCT 31.8 % (34.0-46.0); HDW 2.47; HGB 9.9 gm/dL (11.4-16.0); Luc # (Auto) 0.17; Luc % (Auto) 2; Lymphocytes # (A) 1.1 k/uL (1.0-4.8); Lymphocytes % (A) 15 %; MCH 29.1 pg (25.0-35.0); MCHC 31.3 g/dL (31.0-37.0); Mean Platelet Volume 7.9; Monocytes # (A) 0.5 k/uL (0-1.0); Monocytes % (A) 7 %; Neutrophils # (A) 5.2 k/uL (1.3-7.7); Neutrophils % (A) 73 %; RBC 3.41 m/uL (3.80-5.40); RDW 17.7 % (11.5-15.5); WBC 7.2 k/uL (3.8-10.6); WBC (Perox) 7.48
[2017-07-26 11:46] LABS: Glucose,Whole Blood 90 mg/dL (75-99)
[2017-07-26] MEDS ORDERED: risperiDONE 0.5 MG TAB PO STA (12:22)
[2017-07-26 12:56] LABS: INR 1.3 (<1.2); Prothrombin Time 13.2 sec (9.0-12.0)
--- NOTE | 2017-07-26 14:36 | P.PN ---
Progress Note - Text Interval History: Patient is a 62-year-old female who was seen today patient has continued to express paranoid ideation. She reported to me today that she has cancer and is going to be sent to hospice, she could not tell me what kind of cancer she had her told her this. She states that she is not being told to hold truth could not refer to what this was about. Patient also reports that she is not going to be returning to her home as her friends have cleared out her belongings. She also reported to me that she had a baby yesterday "I had a baby yesterday it was a tubal " patient feels that she is being observed from the other room and can hear people talking about her in the other room. Patient reports that she felt this way once before when she was in the hospital for renal failure states that that is the only other time she has been a suspicious. Patient denies any visual hallucinations. Patient was also accusing her brother of taking applied that she could plug into her computer, reports that people are going through her purse. Patient denied feeling depressed and reported no current suicidal thoughts. Patient states that she was sleeping better after receiving the Risperdal over the weekend. Mental Status: Appearance/Attitude: Patient is sitting at the side of the bed in a hospital gown, she is surrounded by her belongings including her purse and has a computer charging cord in her hand and she is cooperative. Behavior: Patient does not display any psychomotor agitation or retardation. Speech/Language: Patient is spontaneous, speaks in a normal tone of voice and is coherent. Thought Process: Patient is goal-directed, no evidence of loose associations or flight of ideas. Thought Content: Patient denies visual hallucination and states that she hears people talking about her in the next room, patient also has delusional thoughts that she had a baby yesterday and it was a tubal , that her brother has taken her charging cord for her computer, that she is going to hospice because she has cancer and feels that her home is being cleaned out by her friends. She thinks that people are not telling her the truth and states that she is "not crazy". Patient states that she has been sleeping slightly better. Suicidal/Homicidal Ideation: Patient denies any current suicidal or homicidal ideation. Sensorium/Cognition: Patient is alert and oriented to person, place, time and situation and her memory is grossly intact. Mood/Affect: Patient's mood is irritable and her affect is appropriate to her mood. Insight/Judgement: Patient's insight and judgment are impaired Assessment: Patient remains paranoid, with delusional ideation but has been cooperative in taking her medication. Patient discussed with me that she recalled the medication I discussed with her on Wednesday and states that she has been taking it and we discussed that it was for her suspicions. She was not able to question her delusional ideation, she denied any suicidal or homicidal ideation at this time. Patient received a one-time dose of Risperdal 0.5 mg earlier today with little effect. Plan: Will increase patient's Risperdal 1 mg twice a day and reevaluate her tomorrow should she remained delusional and paranoid will discuss inpatient psychiatric hospitalization with her to further treat her symptoms, should she refuse to sign in on a voluntary basis will need to petition her. I discussed this plan with her nurse
[2017-07-26 15:13] VITALS: BMI 43.2
--- NOTE | 2017-07-26 15:40 | P.PN ---
Subjective Progress note being dictated for Dr. Alvarez Interval history:62 yr old with history of HTN, PE comes into the hospital with complaints of right upper quadrant pain times 3 days. Pt also noted some fevers , came into the er, CT abdomen showed choledilithiais. pt was slightly tachycardic. Pt was initially admitted under another physician. we are taking over care per pt's request at this time, denies n/v, chest pain, federico, urinary urgency or frequency 07/22/2017 status post ERCP yesterday reporting, common bile duct stones retained., Tolerated procedure well. T bili much improved, 2.0. Renal function mildly worsened. Did not sleep well last night, confused, delirious. Afebrile. Denies abdominal pain. Denies chest pain, palpitations or increasing shortness of breath. Chest x-ray reporting stable hilar prominence possible underlying pulmonary hypertension, no focal airspace opacity, pleural effusion or pneumothorax. 07/23/17 . Slept Better last night. Tolerating diet with no nausea or vomiting. Remains delirious, paranoid., States staff has been accessing her phone texts, hears voices in hallway states family has been taken out, accusing staff of a unlocking her vehicle and having it towed away, accusing staff of going into her house. Renal function improving. Patient reported she has her insulin pump and her purse, verified by nurse. Denies chest pain, palpitations or increasing shortness of breath. T-max 99. 07/24/2017. T bili and LFTs improving, T bili 1.3. Renal function improving. Good diet intake with no nausea vomiting or diarrhea. Denies abdominal pain. INR 1. Evaluated by psychiatry, yesterday; Seroquel discontinued, with Risperdal initiated. Remains delusional, paranoid, hiding keys between her breasts, persists tightly wedged between her knees. States she hears that there is a cart outside to take her away. Sisters at bedside. Blood sugars better controlled. Denies chest pain, palpitations or increasing shortness of breath. Maintaining O2 sats of 96% on room air. Afebrile. 2016 T bili 0.9, Anticoagulated on Lovenox and Coumadin with INR 1.1. Creatinine mildly improved. Continues to be delusional, paranoid, depressed, crying. Sitter at bedside. 07/26/17 Denies abdominal pain, nausea, vomiting.Remains teary eyed,dilusional, depressed, Diet intake worsened. Declined breakfast, only consumed 25% of lunch. Denies being suicidal. INR 1.3. Objective - Vital Signs Vital signs: Vital Signs Temp 98.0 F 07/26/17 07:00 Pulse 90 07/26/17 07:00 Resp 18 07/26/17 07:00 BP 166/89 07/26/17 07:00 Pulse Ox 94 L 07/26/17 07:00 Intake & Output 07/25/17 07/26/17 07/26/17 18:59 06:59 18:59 Intake Total 700 Balance 700 Weight 121.4 kg Intake: Intake, IV Titration 700 Amount Sodium Chloride 0.9% 1, 700 000 ml @ 125 mls/hr IV . Q8H [facility] Rx#:[id number] Other: Voiding Method Toilet Toilet # Voids 3 3 3 - Exam GENERAL: Alert and oriented 3 ,Sitting up at bedside, alert, confused, delirious, paranoid, crying, avoiding eye contact at times; please refer to above above HEENT: Pupils equal, oral mucosa moist. NECK: Supple, No JVD. CARDIOVASCULAR: S1, S2 muffled. No murmur, rub or gallop. No edema. RESPIRATION: Breath sounds diminished in the bases. No rhonchi or crackles. No bronchial breathing. ABDOMEN: Soft, nontender . No guarding. no masses palpable. No ascites, No hepatosplenomegaly.Bowel sounds heard. LEGS: No edema. no swelling NERVOUS SYSTEM: Cranial N 2-12 grossly normal. Moves all 4 limbs. Strength and sensation grossly intact. Skin: no ulcer no rash Joints: No active swelling. No inflammation. - Labs CBC & Chem 7: 07/26/17 08:31 07/25/17 07:17 Labs: Abnormal Lab Results - Last 24 Hours (Table) 07/25/17 07/25/17 07/26/17 Range/Units 17:35 20:56 07:21 RBC (3.80-5.40) m/uL Hgb (11.4-16.0) gm/dL Hct (34.0-46.0) % RDW (11.5-15.5) % PT (9.0-12.0) sec INR (<1.2) POC Glucose (mg/dL) 144 H 145 H 108 H (75-99) mg/dL 07/26/17 07/26/17 Range/Units 08:31 08:31 RBC 3.41 L (3.80-5.40) m/uL Hgb 9.9 L (11.4-16.0) gm/dL Hct 31.8 L (34.0-46.0) % RDW 17.7 H (11.5-15.5) % PT 13.2 H (9.0-12.0) sec INR 1.3 H (<1.2) POC Glucose (mg/dL) (75-99) mg/dL Microbiology - Last 24 Hours (Table) 07/19/17 18:15 Blood Culture - Final Blood No Growth after 144 hours Assessment and Plan Plan: Sepsis secondary to Obstructive jaundice with choledolithiasis, and suspected underlying cholangitis status post ERCP h/o of PE HTN DM2, likely due to pancreatic insufficiency. HBa1c 7.1(patient has insulin pump ) dyslipidemia Morbid Obesity, BMI 43.2 h/o cholecystectomy Acute renal failure Acute metabolic encephalopathy secondary to sleep deprivation, post anesthesia delirium Depression. plan: Continue on current medication regime , antibiotics, monitoring, and symptomatic treatment. Coumadin 10 mg tonight. Daily PT/INR. Further Psychiatry recommendations pending. Social work consult placed. The impression and plan of care has been dictated as directed. : I performed a H&P examination of this patient and discussed the same with the dictator. I agree with the dictator's note. Any additional findings/opinions/ etc. will be noted.
[2017-07-26 16:58] LABS: Glucose,Whole Blood 113 mg/dL (75-99)
[2017-07-26] MEDS ORDERED: WARFARIN 10 MG TAB PO ONE (18:00)
[2017-07-26 21:05] LABS: Glucose,Whole Blood 138 mg/dL (75-99)
[2017-07-26] MEDS: risperiDONE 1 MG TAB PO SCH (21:16)
[2017-07-26] MEDS: INSULIN DETEMIR 100 UNIT/ML 10 ML VIAL SQ SCH (21:16)
[2017-07-27] MEDS: SODIUM CHLORIDE 0.9% 1,000 ML IV SCH ×2 (00:08→13:22)
[2017-07-27] MEDS: metroNIDAZOLE 500 MG TAB PO SCH ×3 (00:08→16:27)
[2017-07-27 07:35] LABS: Glucose,Whole Blood 86 mg/dL (75-99)
[2017-07-27] MEDS: INSULIN LISPRO (humaLOG) 300 UNIT/3 ML VIAL SQ SCH ×3 (07:45→17:51)
[2017-07-27] MEDS: CALCITRIOL 0.25 MCG CAP PO SCH (07:50)
[2017-07-27] MEDS: amLODIPine 5 MG TAB PO SCH (07:50)
[2017-07-27] MEDS: ENOXAPARIN 120 MG/0.8 ML SYRINGE SQ SCH (07:51)
[2017-07-27] MEDS: PANTOPRAZOLE 40 MG/10 ML VIAL IVP SCH (07:53)
[2017-07-27] MEDS: LORATADINE 10 MG TAB PO SCH (07:54)
[2017-07-27] MEDS: LEVOFLOXACIN 250 MG TAB PO SCH (07:55)
[2017-07-27 08:36] LABS: Anisocytosis Slight; Basophils % (A) 1 %; CH 30.3; CHCM 32.6; Eosinophils # (A) 0.1 k/uL (0-0.7); Eosinophils % (A) 2 %; HCT 34.5 % (34.0-46.0); HDW 2.52; HGB 10.8 gm/dL (11.4-16.0); Luc # (Auto) 0.13; Luc % (Auto) 2; Lymphocytes # (A) 1.1 k/uL (1.0-4.8); Lymphocytes % (A) 17 %; MCH 29.4 pg (25.0-35.0); MCHC 31.4 g/dL (31.0-37.0); MCV 93.6 fL (80.0-100.0); Mean Platelet Volume 8.5; Monocytes # (A) 0.5 k/uL (0-1.0); Monocytes % (A) 8 %; Neutrophils # (A) 4.9 k/uL (1.3-7.7); Neutrophils % (A) 71 %; RBC 3.69 m/uL (3.80-5.40); RDW 18.1 % (11.5-15.5); WBC 6.8 k/uL (3.8-10.6); WBC (Perox) 7.48
[2017-07-27 08:49] LABS: Calcium 8.8 mg/dL (8.4-10.2); Potassium 3.6 mmol/L (3.5-5.1); Total Bilirubin 0.8 mg/dL (0.2-1.3)
[2017-07-27] MEDS: risperiDONE 1 MG TAB PO SCH (09:18)
[2017-07-27 09:36] LABS: INR 1.4 (<1.2); Prothrombin Time 13.7 sec (9.0-12.0)
[2017-07-27 12:01] LABS: Glucose,Whole Blood 104 mg/dL (75-99)
--- NOTE | 2017-07-27 12:18 | P.PN ---
Progress Note - Text Interval History: Patient is a 62-year-old female who is being seen in follow- up to a consultation obtained due to the patient becoming delirious, expressing paranoid ideation. Patient was seen yesterday and I increased her Risperdal to 1 mg twice a day. Patient states today that she slept better last evening. She reports that she does not believe that she had a tubal and reports that she is questioning her statement that she has terminal cancer. She reports that she was seeing different faces yesterday and did not report this to me but states that she is no longer having visual hallucinations. She questioned whether her phone was working, that her brother had turned it off but when she checked it with me her phone was working. Patient is questioning some of the thoughts that she had yesterday regarding being diagnosed with terminal cancer, having her house cleared out by her friends and that her phone and laptop returned off by her brother. Patient reported to me that she is not hearing people talk about her as frequently as she was yesterday. Patient reports that there is friction among her siblings since the of their mother in 2012, she states her 2 older siblings disowned her brother and she tries to keep the peace amongst the for them. Patient denied any suicidal or homicidal ideation and stated that she is not feeling depressed. Patient reports that she did have a similar episode with similar symptoms when she had acute renal failure in the past. Mental Status: Appearance/Attitude: Patient is in a hospital gown lying in her room and is cooperative and makes intermittent eye contact. Behavior: Patient does not display any psychomotor agitation or retardation. Speech/Language: Patient's speech is spontaneous, normal volume and rhythm and she is coherent. Thought Process: Patient is goal directed and is not circumstantial or tangential and there is no evidence of loose associations or flight of ideas. Thought Content: Patient reports she continues to hear voices although not as frequently as she was yesterday, telling her that she has terminal cancer and she reports that she was seeing things, faces but is no longer seeing them. Patient is beginning to question some of her ideation yesterday and states that she knows that she did not have a baby, but she is still questioning whether she 's been diagnosed with terminal cancer or not as well as whether or not her brother has turned off her phone and laptop and whether she is being observed. Patient reports that she slept better yesterday and has been eating fairly well. Suicidal/Homicidal Ideation: Patient denies any current suicidal or homicidal ideation. Sensorium/Cognition: Patient is alert and oriented to person, place, and time and her memory is grossly intact. Mood/Affect: Patient's mood is guarded and her affect is appropriate to her mood. Insight/Judgement: Patient's insight and judgment are poor. Assessment: Patient continues to have delusional ideation regarding her health, whether her brother has turned off her cell phone and and continues to have auditory hallucinations, the visual hallucinations have stopped and she is sleeping better. Patient has improved with the increase in the Risperdal to 1 mg twice a day but is not yet stable enough to be discharged home. I spoke with the patient about coming to the psychiatric unit to continue to treat her delusions and she was agreeable to this. Plan: Patient was agreeable to sign a voluntary admission form to come to the psychiatric unit to continue to treat her psychotic symptoms that secondary to her medical problems. I spoke with the EPS nurse and they will arrange for her transfer to the psychiatric unit. Patient will continue on her Risperdal 1 mg twice a day at this time.
[2017-07-27] MEDS: MAGNESIUM OXIDE 400 MG TAB PO SCH (13:02)
--- NOTE | 2017-07-27 14:02 | P.DS ---
Providers Date of admission: 07/19/17 21:03 Expected date of discharge: 07/27/17 Attending physician: Clifford Headley Consults: 07/19/17 21:07 Consult Physician Urgent Consulting Provider: Gilda Weeks Consult Reason/Comments: Choledocholithiasis Do you want consulting provider notified?: Yes 07/23/17 12:09 Consult Physician Routine Consulting Provider: Kandy Brennan Consult Reason/Comments: delirium, paranoia,confusion Do you want consulting provider notified?: Yes Dr. Das, GI Primary care physician: [facility] Course: Final Diagnoses: Sepsis secondary to Obstructive jaundice with choledolithiasis, and suspected underlying cholangitis status post ERCP h/o of PE 2011 HTN DM2. HBa1c 7.1(patient has insulin pump) dyslipidemia Morbid Obesity, BMI 43.2 h/o cholecystectomy Acute renal failure Acute metabolic encephalopathy secondary to sleep deprivation, post anesthesia delirium Depression, delusional. Hospital course: This is a 62 yr old with history of HTN, PE comes into the hospital with complaints of right upper quadrant pain times 3days, fevers, acute renal failure. CT abdomen showed choledilithiais.status post ERCP reporting, common bile duct stones retained., Tbili normalized, LFTs and renal function significantly improved. Postprocedure, difficulty sleeping, developed confusion, delirium, hallucinations. Unable to initiate patient's own insulin pump, given pt's poor judgment at this time. Initially treated with Seroquel. Evaluated by psychiatry, Seroquel discontinued and Risperdal initiated. Remained delusional, depressed and Risperdal dose further adjusted as perthen changed over to Risperdal. Remains delusional, depressed. Patient agreeable to voluntary psychiatric unit admission. Cleared by all consults for discharge. Patient is being discharged to psychiatric unit in a stable condition with guarded prognosis. The impression and plan of care has been dictated as directed as a scribe.. : I performed a H&P examination of this patient and discussed the same with the dictator. I agree with the dictator's note. Any additional findings/opinions/ etc. will be noted. Patient Condition at Discharge: Stable Plan - Discharge Summary New Discharge Prescriptions: New Loratadine [Claritin] 5 mg PO DAILY #30 tab metroNIDAZOLE [Flagyl] 500 mg PO Q8HR #15 tab INSULIN LISPRO (humaLOG) [humaLOG (formulary)] 0 unit SQ ACHS vial risperiDONE [RisperDAL] 1 mg PO BID tab Insulin Detemir [Levemir] 20 unit SQ HS vial Continue Furosemide [Lasix] 40 mg PO DAILY Magnesium Oxide [Mag-Ox] 420 mg PO QAM amLODIPine [Norvasc] 5 mg PO QAM Ergocalciferol (Vitamin D2) [Drisdol] 50,000 unit PO Q30D Calcitriol 0.5 mcg PO DAILY Changed Warfarin Sodium 8 mg PO DAILY@1800 #0 Discontinued Warfarin Sodium 6 mg PO SUMOTUWEFRSA Insulin Aspart (For Pump) [NovoLOG (For Pump)] 0.85 unit SQ-PUMP CONTINUOUS Discharge Medication List Furosemide [Lasix] 40 mg PO DAILY 04/08/16 [History] Magnesium Oxide [Mag-Ox] 420 mg PO QAM 04/08/16 [History] amLODIPine [Norvasc] 5 mg PO QAM 07/06/16 [History] Ergocalciferol (Vitamin D2) [Drisdol] 50,000 unit PO Q30D 07/13/16 [History] Calcitriol 0.5 mcg PO DAILY 07/19/17 [History] Loratadine [Claritin] 5 mg PO DAILY #30 tab 07/24/17 [Rx] metroNIDAZOLE [Flagyl] 500 mg PO Q8HR #15 tab 07/24/17 [Rx] INSULIN LISPRO (humaLOG) [humaLOG (formulary)] 0 unit SQ ACHS vial 07/27/17 [Rx ] Insulin Detemir [Levemir] 20 unit SQ HS vial 07/27/17 [Rx] Warfarin Sodium 8 mg PO DAILY@1800 #0 07/27/17 [Rx] risperiDONE [RisperDAL] 1 mg PO BID tab 07/27/17 [Rx] Follow up Appointment(s)/Referral(s): Libia Bhatt DO [Primary Care Provider] - 3 Days Krista Das MD [STAFF PHYSICIAN] - 2 Weeks Activity/Diet/Wound Care/Special Instructions: Diet: Consistent carb Accu-Cheks before meals and at bedtime, Activity: Limited until follow up PT,INR daily Discharge Disposition: TRANSFER TO PSYCH HOSP/UNIT
[2017-07-27 15:47] VITALS: BP 144/78; PULSE 96; RESP 16; TEMP 99.7
[2017-07-27 17:38] LABS: Glucose,Whole Blood 237 mg/dL (75-99)
[2017-07-27] MEDS ORDERED: INSULIN DETEMIR 100 UNIT/ML 10 ML VIAL SQ SCH (21:00)
[2017-07-29] MEDS ORDERED: WARFARIN 2 MG TAB PO SCH (18:00)
[2017-08-02] MEDS ORDERED: ERGOCALCIFEROL 50,000 UNIT CAP PO SCH (12:00)
== END 2017-07-27 19:56 | DRG 871 ==
LOC: EC 16:42 → 6SEL 21:03 → 6PED 07-20 09:14 → 4MS4W 07-22 10:34
PROVIDERS: ADMIT Hospitalist; ATTEND Hospitalist
PROC: 0FC98ZZ Extirpation of Matter from Common Bile Duct, Via Natural or Artificial Opening Endoscopic (ICD-10-PCS; principal; 2017-07-21 07:30)
PROC: BF101ZZ Fluoroscopy of Bile Ducts using Low Osmolar Contrast (ICD-10-PCS; 2017-07-21 07:30)
DX: A41.9 Sepsis, unspecified organism (principal); G93.41 Metabolic encephalopathy; N17.9 Acute kidney failure, unspecified; F32.3 Major depressive disorder, single episode, severe with psychotic features; N18.4 Chronic kidney disease, stage 4 (severe); K80.33 Calculus of bile duct with acute cholangitis with obstruction; E11.21 Type 2 diabetes mellitus with diabetic nephropathy; Z68.41 Body mass index [BMI] 40.0-44.9, adult; E66.01 Morbid (severe) obesity due to excess calories; K86.89 Other specified diseases of pancreas; E11.22 Type 2 diabetes mellitus with diabetic chronic kidney disease; K76.0 Fatty (change of) liver, not elsewhere classified; E78.5 Hyperlipidemia, unspecified; I25.10 Atherosclerotic heart disease of native coronary artery without angina pectoris; T41.45XA Adverse effect of unspecified anesthetic, initial encounter; I12.9 Hypertensive chronic kidney disease with stage 1 through stage 4 chronic kidney disease, or unspecified chronic kidney disease; Z79.01 Long term (current) use of anticoagulants; Z79.4 Long term (current) use of insulin; Z79.899 Other long term (current) drug therapy; Z96.41 Presence of insulin pump (external) (internal); Z72.820 Sleep deprivation; Z86.711 Personal history of pulmonary embolism; Z90.49 Acquired absence of other specified parts of digestive tract; Z88.1 Allergy status to other antibiotic agents; Z88.0 Allergy status to penicillin
CPT/HCPCS: 36415; 43262; 43264; 71020; 74176; 74330; 80048; 80053; 81003; 82150; 82248; 82550; 82553; 83036; 83605; 83690; 84484; 85025; 85610; 85730; 86850; 86900; 86901; 87040; 87086; 93005; 96361; 96365; 96366; 96367; 96375; 99291

== ENCOUNTER 2017-07-27 17:36 | Inpatient (IN) | payer BC ==
[2017-07-27] MEDS ORDERED: MAG HYDROX/AL HYDROX/SIMETH 30 ML CUP PO PRN (20:12)
[2017-07-27] MEDS ORDERED: ACETAMINOPHEN TAB 325 MG TAB PO PRN (20:12)
[2017-07-27] MEDS ORDERED: MAGNESIUM HYDROXIDE 2,400 MG/10 ML CUP PO PRN (20:12)
[2017-07-27 20:51] LABS: Glucose,Whole Blood 269 mg/dL (75-99)
[2017-07-27] MEDS ORDERED: MELATONIN 5 MG TABLET PO SCH (21:00)
[2017-07-27] MEDS: INSULIN DETEMIR 100 UNIT/ML 10 ML VIAL SQ SCH (21:53)
[2017-07-27] MEDS: INSULIN LISPRO (humaLOG) 300 UNIT/3 ML VIAL SQ SCH (21:55)
[2017-07-27] MEDS: risperiDONE 1 MG TAB PO SCH (21:59)
[2017-07-27] MEDS: metroNIDAZOLE 500 MG TAB PO SCH (23:56)
[2017-07-28 00:21] VITALS: BMI 42.7
[2017-07-28 06:37] LABS: Glucose,Whole Blood 106 mg/dL (75-99)
[2017-07-28] MEDS: INSULIN LISPRO (humaLOG) 300 UNIT/3 ML VIAL SQ SCH ×4 (08:36→20:29)
[2017-07-28] MEDS: risperiDONE 1 MG TAB PO SCH ×2 (09:20→20:30)
[2017-07-28] MEDS: amLODIPine 5 MG TAB PO SCH (09:21)
[2017-07-28] MEDS: MAGNESIUM OXIDE 400 MG TAB PO SCH (09:21)
[2017-07-28] MEDS: CALCITRIOL 0.25 MCG CAP PO SCH (09:22)
[2017-07-28] MEDS: FUROSEMIDE 40 MG TAB PO SCH (09:22)
[2017-07-28] MEDS: metroNIDAZOLE 500 MG TAB PO SCH ×3 (09:22→23:04)
[2017-07-28] MEDS: LORATADINE 10 MG TAB PO SCH (09:24)
[2017-07-28 09:35] LABS: Anisocytosis Slight; Basophils % (A) 0 %; CHCM 32.5; Eosinophils # (A) 0.1 k/uL (0-0.7); Eosinophils % (A) 2 %; HGB 11.5 gm/dL (11.4-16.0); Luc # (Auto) 0.18; Luc % (Auto) 3; Lymphocytes # (A) 1.2 k/uL (1.0-4.8); Lymphocytes % (A) 17 %; MCH 29.7 pg (25.0-35.0); MCHC 31.9 g/dL (31.0-37.0); MCV 93.1 fL (80.0-100.0); Mean Platelet Volume 8.2; Monocytes # (A) 0.5 k/uL (0-1.0); Monocytes % (A) 7 %; Neutrophils # (A) 4.7 k/uL (1.3-7.7); Neutrophils % (A) 71 %; RBC 3.86 m/uL (3.80-5.40); RDW 18.1 % (11.5-15.5); WBC 6.6 k/uL (3.8-10.6); WBC (Perox) 6.45
[2017-07-28 09:40] LABS: INR 1.5 (<1.2); Prothrombin Time 14.5 sec (9.0-12.0)
[2017-07-28 09:53] LABS: Potassium 3.7 mmol/L (3.5-5.1); Total Bilirubin 0.8 mg/dL (0.2-1.3); Total Protein 6.1 g/dL (6.3-8.2)
[2017-07-28 14:08] LABS: Glucose,Whole Blood 104 mg/dL (75-99)
--- NOTE | 2017-07-28 15:20 | P.CONS ---
History of Present Illness - Reason for Consult DVT history, chronic kidney disease - History of Present Illness This is a 62-year-old female admitted for cortical her gases and right upper quadrant abdominal pain patient underwent ERCP patient has multiple other medical problems including chronic kidney disease secondary to diabetic nephropathy and patient has history of DVT with DVT for which patient is on Coumadin and patient on Lovenox because of subtherapeutic INR and because of her chronic kidney disease we are not using Lovenox bridging at this point of time and patient is on 8 mg of Coumadin which was changed to 6 mg. Patient is still because of which I'm switching her back to 8 mg we'll repeat INR every day. Patient denied any chest pain, nausea, vomiting abdominal pain at this point of time patient is tearful and does have significant psychiatric issues including CAD severe depression may be acute psychosis. Patient does have poor insight Review of Systems REVIEW OF SYSTEMS: CONSTITUTIONAL: No fever, no malaise, no fatigue. HEENT: No recent visual problems or hearing problems. Denied any sore throat. CARDIOVASCULAR: No chest pain, orthopnea, PND, no palpitations, no syncope. PULMONARY: No shortness of breath, no cough, no hemoptysis. GASTROINTESTINAL: No diarrhea, no nausea, no vomiting, no abdominal pain. Normoactive bowel sounds. NEUROLOGICAL: No headaches, no weakness, no numbness. HEMATOLOGICAL: Denies any bleeding or petechiae. GENITOURINARY: Denies any burning micturition, frequency, or urgency. MUSCULOSKELETAL/RHEUMATOLOGICAL: Denies any joint pain, swelling, or any muscle pain. ENDOCRINE: Denies any polyuria or polydipsia. The rest of the 14-point review of systems is negative. Past Medical History Past Medical History: Coronary Artery Disease (CAD), Diabetes Mellitus, Deep Vein Thrombosis (DVT), Hyperlipidemia, Hypertension, Pulmonary Embolus (PE), Renal Disease Additional Past Medical History / Comment(s): Vitamin D Deficency, pt has insulin pump, elevated liver enzymes History of Any Multi-Drug Resistant Organisms: None Reported Past Surgical History: Appendectomy, Cholecystectomy Additional Past Surgical History / Comment(s): Breast Biopsy, Carapal tunnel to right hand, Heart Catherization, colonoscopy 08/2014 Past Anesthesia/Blood Transfusion Reactions: No Reported Reaction Past Psychological History: No Psychological Hx Reported Smoking Status: Never smoker Past Alcohol Use History: None Reported Past Drug Use History: None Reported - Past Family History Mother Family Medical History: No Reported History Additional Family Medical History / Comment(s): heart disease Father Additional Family Medical History / Comment(s): heart disease Medications and Allergies Home Medications Medication Instructions Recorded Confirmed Type Furosemide [Lasix] 40 mg PO DAILY 04/08/16 07/27/17 History Magnesium Oxide [Mag-Ox] 420 mg PO QAM 04/08/16 07/27/17 History amLODIPine [Norvasc] 5 mg PO QAM 07/06/16 07/27/17 History Ergocalciferol (Vitamin D2) 50,000 unit PO Q30D 07/13/16 07/27/17 History [Drisdol] Calcitriol 0.5 mcg PO DAILY 07/19/17 07/27/17 History Allergies Allergy/AdvReac Type Severity Reaction Status Date / Time azithromycin Allergy Unknown Rash/Hives Verified 07/28/17 00:41 amoxicillin Allergy Rash/Hives Verified 07/28/17 00:41 Physical Exam Vitals: Vital Signs Temp Pulse Pulse Resp BP BP Pulse Ox 07/28/17 09:20 104 H 16 125/60 07/28/17 07:01 98.4 F 88 92 20 183/84 162/70 07/27/17 23:50 98.8 F 91 18 160/71 92 L 07/27/17 21:27 98.8 F 91 18 160/71 92 L Intake and Output 07/28/17 07/28/17 07/28/17 06:59 14:59 22:59 Other: Weight 120.202 kg 120.202 kg Patient Weight 07/29/17 06:59 Weight 120.202 kg PHYSICAL EXAMINATION: GENERAL: The patient is alert and oriented x3, not in any acute distress. Well developed, well nourished. HEENT: Pupils are round and equally reacting to light. EOMI. No scleral icterus. No conjunctival pallor. Normocephalic, atraumatic. No pharyngeal erythema. No thyromegaly. CARDIOVASCULAR: S1 and S2 present. No murmurs, rubs, or gallops. PULMONARY: Chest is clear to auscultation, no wheezing or crackles. ABDOMEN: Soft, nontender, nondistended, normoactive bowel sounds. No palpable organomegaly. MUSCULOSKELETAL: No joint swelling or deformity. EXTREMITIES: No cyanosis, clubbing, or pedal edema. NEUROLOGICAL: Gross neurological examination did not reveal any focal deficits. SKIN: No rashes. Results CBC & Chem 7: 07/28/17 09:04 07/28/17 09:04 Labs: Abnormal Lab Results - Last 24 Hours (Table) 07/27/17 07/28/17 07/28/17 Range/Units 20:36 06:31 09:04 RDW (11.5-15.5) % PT (9.0-12.0) sec INR (<1.2) Creatinine (0.52-1.04) mg/dL POC Glucose (mg/dL) 269 H 106 H (75-99) mg/dL Hemoglobin A1c 7.0 H (4.2-6.1) % AST (14-36) U/L ALT (9-52) U/L Alkaline Phosphatase (38-126) U/L Total Protein (6.3-8.2) g/dL TSH (0.465-4.680) mIU/L 07/28/17 07/28/17 07/28/17 Range/Units 09:04 09:04 09:04 RDW 18.1 H (11.5-15.5) % PT 14.5 H (9.0-12.0) sec INR 1.5 H (<1.2) Creatinine 1.76 H (0.52-1.04) mg/dL POC Glucose (mg/dL) (75-99) mg/dL Hemoglobin A1c (4.2-6.1) % AST 115 H (14-36) U/L ALT 117 H (9-52) U/L Alkaline Phosphatase 377 H (38-126) U/L Total Protein 6.1 L (6.3-8.2) g/dL TSH 5.310 H (0.465-4.680) mIU/L 07/28/17 Range/Units 12:10 RDW (11.5-15.5) % PT (9.0-12.0) sec INR (<1.2) Creatinine (0.52-1.04) mg/dL POC Glucose (mg/dL) 104 H (75-99) mg/dL Hemoglobin A1c (4.2-6.1) % AST (14-36) U/L ALT (9-52) U/L Alkaline Phosphatase (38-126) U/L Total Protein (6.3-8.2) g/dL TSH (0.465-4.680) mIU/L Assessment and Plan Plan: #1 history of DVT: Recommend to continue Coumadin at 8 mg a repeat INR tomorrow titrate accordingly. I do not recommend any bridging because of high risk of bleeding secondary to her renal dysfunction. And had a DVT was years ago. #2 chronic kidney disease secondary to diabetic nephropathy #3 type 2 diabetes mellitus #4 right upper quadrant pain and cortical gases with normalization of liver enzymes. #5 depression and possible acute psychosis: Management as per primary service #6 acute renal failure: Which resolved at this point of time #7 hypertension #8 dyslipidemia For above-mentioned chronic medical problems Sicherman to continue her home medications all her medications were reviewed and appropriately corrected. Repeat INR tomorrow
--- NOTE | 2017-07-28 16:59 | P.HP ---
Psychiatric H&P - . H&P Date: 07/28/17 History & Physical: Allergies Allergy/AdvReac Type Severity Reaction Status Date / Time azithromycin Allergy Unknown Rash/Hives Verified 07/28/17 00:41 amoxicillin Allergy Rash/Hives Verified 07/28/17 00:41 Vital Signs Temp 98.4 F 07/28/17 07:01 Pulse 104 H 07/28/17 09:20 Resp 16 07/28/17 09:20 BP 125/60 07/28/17 09:20 Pulse Ox 92 L 07/27/17 23:50 Intake & Output 07/27/17 07/28/17 07/28/17 18:59 06:59 18:59 Weight 120.202 kg 120.202 kg Laboratory Last Values WBC 6.6 k/uL (3.8-10.6) 07/28/17 09:04 RBC 3.86 m/uL (3.80-5.40) 07/28/17 09:04 Hgb 11.5 gm/dL (11.4-16.0) 07/28/17 09:04 Hct 36.0 % (34.0-46.0) 07/28/17 09:04 MCV 93.1 fL (80.0-100.0) 07/28/17 09:04 MCH 29.7 pg (25.0-35.0) 07/28/17 09:04 MCHC 31.9 g/dL (31.0-37.0) 07/28/17 09:04 RDW 18.1 % (11.5-15.5) H 07/28/17 09:04 Plt Count 252 k/uL (150-450) 07/28/17 09:04 Neutrophils % 71 % 07/28/17 09:04 Lymphocytes % 17 % 07/28/17 09:04 Monocytes % 7 % 07/28/17 09:04 Eosinophils % 2 % 07/28/17 09:04 Basophils % 0 % 07/28/17 09:04 Neutrophils # 4.7 k/uL (1.3-7.7) 07/28/17 09:04 Lymphocytes # 1.2 k/uL (1.0-4.8) 07/28/17 09:04 Monocytes # 0.5 k/uL (0-1.0) 07/28/17 09:04 Eosinophils # 0.1 k/uL (0-0.7) 07/28/17 09:04 Basophils # 0.0 k/uL (0-0.2) 07/28/17 09:04 Anisocytosis Slight 07/28/17 09:04 PT 14.5 sec (9.0-12.0) H 07/28/17 09:04 INR 1.5 (<1.2) H 07/28/17 09:04 Sodium 144 mmol/L (137-145) 07/28/17 09:04 Potassium 3.7 mmol/L (3.5-5.1) 07/28/17 09:04 Chloride 105 mmol/L (98-107) 07/28/17 09:04 Carbon Dioxide 27 mmol/L (22-30) 07/28/17 09:04 Anion Gap 12 mmol/L 07/28/17 09:04 BUN 16 mg/dL (7-17) 07/28/17 09:04 Creatinine 1.76 mg/dL (0.52-1.04) H 07/28/17 09:04 Est GFR (MDRD) Af Amer 35 (>60 ml/min/1.73 sqM) 07/28/17 09:04 Est GFR (MDRD) Non-Af 29 (>60 ml/min/1.73 sqM) 07/28/17 09:04 Glucose 93 mg/dL (74-99) 07/28/17 09:04 POC Glucose (mg/dL) 104 mg/dL (75-99) H 07/28/17 12:10 POC Glu Embroiderer ID Carmen Niño 07/28/17 12:[address] Glu mg/dL 154 mg/dL 07/28/17 09:04 Hemoglobin A1c 7.0 % (4.2-6.1) H 07/28/17 09:04 Calcium 9.0 mg/dL (8.4-10.2) 07/28/17 09:04 Total Bilirubin 0.8 mg/dL (0.2-1.3) 07/28/17 09:04 AST 115 U/L (14-36) H 07/28/17 09:04 ALT 117 U/L (9-52) H 07/28/17 09:04 Alkaline Phosphatase 377 U/L (38-126) H 07/28/17 09:04 Total Protein 6.1 g/dL (6.3-8.2) L 07/28/17 09:04 Albumin 3.5 g/dL (3.5-5.0) 07/28/17 09:04 TSH 5.310 mIU/L (0.465-4.680) H 07/28/17 09:04 07/28/17 16:45 Identification: Patient is a 62-year-old female who was transferred from the medical floor to the psychiatric unit after having symptoms of a delirium after having been admitted for biliary obstruction, sepsis and had an ERCP. History of Present Illness: Patient was seen on the medical floor and she reported that she was hearing people talking about her in the next room. She verbalized that she had had a tubal , she thought that she was being exert observed with cameras, and she thought that people were talking about her. She also thought that she had cancer, that her brother had turned off her cell service, and that friends had removed all the items from her home. Patient also reported that she had been having visual hallucinations seeing faces. Patient also stated that she wasn't thinking very clearly after the procedure. She felt people were trying to prevent her from leaving and going home. These symptoms continued even after being started on Risperdal on the medical floor and so she was transferred to the psychiatric unit. Patient now on the psychiatric unit reports that the thoughts that she had a tubal did not seem real to her, also that people are not observing her and she is no longer having visual hallucinations. Patient reported that she never clearly understood what was the results of the ERCP although she was able to tell me that she had blocked bile duct but continued to have concerns that she had cancer. Patient did not express that her family was trying to prevent her from leaving the hospital. 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 She states this causes a lot of distress for her. Patient was also able to verbalize that when she had acute renal failure several years ago she also had a period of confusion and paranoid ideation. Patient is unable to endorse any symptoms of depression currently or in the past , she is not able to endorse any symptoms of jose currently or in the past and no psychotic symptoms other than paranoid ideation after the acute renal failure several years ago. Past Psychiatric History: Patient denies any prior history of inpatient or outpatient psychiatric care and has never been on any psychotropic medication. Patient has no prior history of suicide attempts. Past Medical/Surgical History: She has a history of diabetes, hypertension hyperlipidemia, DVT, CAD and is status post pulmonary embolism. She is also status post cholecystectomy and an appendectomy. She was being treated for biliary obstruction with sepsis on the medical floor. Current Medications Acetaminophen (Tylenol Tab) 650 mg PO Q4HR PRN PRN Reason: Pain/Discomfort Al Hydroxide/Mg Hydroxide (Maalox) 30 ml PO Q4HR PRN PRN Reason: GI Upset Amlodipine Besylate (Norvasc) 5 mg PO QAM [facility] Last Admin: 07/28/17 09:21 Dose: 5 mg Calcitriol (Rocaltrol) 0.5 mcg PO DAILY [facility] Last Admin: 07/28/17 09:22 Dose: 0.5 mcg Ergocalciferol (Vitamin D2) 50,000 unit PO Q30D [facility] Furosemide (Lasix) 40 mg PO DAILY [facility] Last Admin: 07/28/17 09:22 Dose: 40 mg Insulin Detemir (Levemir) 20 unit SQ HS [facility] Last Admin: 07/27/17 21:53 Dose: 20 unit Insulin Human Lispro (Humalog) 0 unit SQ ACHS [facility] PRN Reason: Protocol Last Admin: 07/28/17 13:19 Dose: Not Given Loratadine (Claritin) 5 mg PO DAILY [facility] Last Admin: 07/28/17 09:24 Dose: Not Given Magnesium Hydroxide (Milk Of Magnesia) 2,400 mg PO DAILY PRN PRN Reason: Constipation Magnesium Oxide (Mag-Ox) 400 mg PO QAM [facility] Last Admin: 07/28/17 09:21 Dose: 400 mg Metronidazole (Flagyl) 500 mg PO Q8HR [facility] Last Admin: 07/28/17 15:26 Dose: 500 mg Risperidone (Risperdal) 1 mg PO BID [facility] Last Admin: 07/28/17 09:20 Dose: 1 mg Warfarin Sodium (Coumadin) 8 mg PO DAILY@1800 [place] Social History: [Patient has never been and she has no children. She lives alone in a duplex reports that she has been caring for her activities of daily living without difficulty. 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 She resigned when her diabetes was diagnosed. Patient states that she then went to college and obtained a bachelor's degree. 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 Patient denies any prior history of abuse. She reports he has many supportive friends and is active at home and does drive her own car. Substance Use History: Patient denies any current or prior drug use and states that she has an occasional glass of wine and has never used alcohol to excess. Patient denies any prior tobacco use Legal History: Patient denies any legal history. Mental Status:Appearance/Attitude: Patient is dressed in a hospital gown and is found sleeping in bed but is easily awakened, she makes intermittent eye contact and is cooperative.] Behavior: Patient does not exhibit any psychomotor agitation or retardation. Speech/Language: Patient's speech is spontaneous and of normal volume and rhythm and she is coherent. Thought Process: Patient is goal-directed and there is no evidence of circumstantial or tangential thought and no loose associations or flight of ideas. Thought Content: Patient denies any current auditory or visual hallucinations and states she is beginning to question some of the statements that she made concerning having a tubal , that people were observing her and that her friends of removed items from her house. Patient remained slightly guarded and suspicious about her family and their intentions. Patient reported that she has been sleeping fairly well and states that her appetite is poor. Suicidal/Homicidal Ideation: Patient denied any current suicidal or homicidal ideation. Sensorium/Cognition: Patient is alert and oriented to person, place, and time and her memory is grossly intact. Mood/Affect: Patient's mood is slightly guarded and her affect is appropriate. Insight/Judgement: Patient's insight and judgment are impaired Intellectual Functioning: Patient's intellectual functioning appears average. Strength/Weaknesses: Patient has a good support system, stable housing, financial support/conflicted sibling relationship. Assessment: Patient presented to the emergency room complaining of right flank pain and was found to have obstructive jaundice and had an ERCP on July 21 which revealed that the patient had a blocked biliary duct. Patient became delirious and confused at that time, she was begun on Seroquel and when I saw the patient she was no longer confused and her sensorium was not clouded but she was now expressing paranoid ideation which has persisted. Patient was begun on Risperdal and continued to have paranoid ideation after 4 days on Risperdal and was transferred to the psychiatric unit to continue to stabilize her. Patient is now questioning some of the statements that she made, but she remains guarded and still slightly suspicious. Admission Diagnoses: Brief psychotic reaction secondary to a delirium Plan: Patient was admitted on a voluntary basis, routine laboratory studies were ordered and a medical consultation was obtained. Patient was continued on her medications from the medical floor. Patient was also placed on routine observation and group and activity therapy were ordered. Patient was continued on Risperdal 1 mg twice a day to target her paranoid ideation. Patient and I had a long discussion regarding her treatment in the hospital and the fact that she was never diagnosed with cancer. Patient was discussed in the team treatment meeting and she signed a release of information for the health social work professor to speak with her good friend who confirmed that they family relationship is conflicted. Patient requires hospitalization to treat her psychotic symptoms. Patient was encouraged to attend groups and activities.
[2017-07-28 17:10] LABS: Glucose,Whole Blood 153 mg/dL (75-99)
[2017-07-28] MEDS ORDERED: WARFARIN 3 MG TAB PO SCH (18:00)
[2017-07-28] MEDS ORDERED: WARFARIN 2 MG TAB PO SCH ×2 (18:00)
[2017-07-28 20:26] LABS: Glucose,Whole Blood 230 mg/dL (75-99)
[2017-07-28] MEDS: INSULIN DETEMIR 100 UNIT/ML 10 ML VIAL SQ SCH (20:29)
[2017-07-29 06:11] LABS: Glucose,Whole Blood 99 mg/dL (75-99)
[2017-07-29 06:37] VITALS: TEMP 98
[2017-07-29] MEDS: INSULIN LISPRO (humaLOG) 300 UNIT/3 ML VIAL SQ SCH ×2 (07:57→13:06)
[2017-07-29] MEDS: amLODIPine 5 MG TAB PO SCH (09:41)
[2017-07-29] MEDS: FUROSEMIDE 40 MG TAB PO SCH (09:41)
[2017-07-29] MEDS: metroNIDAZOLE 500 MG TAB PO SCH ×2 (09:41→16:18)
[2017-07-29] MEDS: CALCITRIOL 0.25 MCG CAP PO SCH (09:41)
[2017-07-29] MEDS: risperiDONE 1 MG TAB PO SCH (09:41)
[2017-07-29] MEDS: MAGNESIUM OXIDE 400 MG TAB PO SCH (09:41)
[2017-07-29] MEDS: LORATADINE 10 MG TAB PO SCH (09:46)
[2017-07-29 12:06] LABS: Glucose,Whole Blood 214 mg/dL (75-99)
[2017-07-29 12:16] VITALS: BP 102/50; PULSE 110; RESP 18
--- NOTE | 2017-07-29 12:58 | P.PN ---
Subjective I was asked by the psychiatric service to reevaluate for her medications. I did do the medication reconciliation and appropriate prescription for provided to the patient. Objective - Vital Signs Vital signs: Vital Signs Temp 98.0 F 07/29/17 06:37 Pulse 110 H 07/29/17 09:40 Resp 18 07/29/17 09:40 BP 102/50 07/29/17 09:40 Pulse Ox 92 L 07/27/17 23:50 Intake & Output 07/28/17 07/29/17 07/29/17 18:59 06:59 18:59 Weight 120.202 kg - Exam PHYSICAL EXAMINATION: GENERAL: The patient is alert and oriented x3, not in any acute distress. Well developed, well nourished. HEENT: Pupils are round and equally reacting to light. EOMI. No scleral icterus. No conjunctival pallor. Normocephalic, atraumatic. No pharyngeal erythema. No thyromegaly. CARDIOVASCULAR: S1 and S2 present. No murmurs, rubs, or gallops. PULMONARY: Chest is clear to auscultation, no wheezing or crackles. ABDOMEN: Soft, nontender, nondistended, normoactive bowel sounds. No palpable organomegaly. MUSCULOSKELETAL: No joint swelling or deformity. EXTREMITIES: No cyanosis, clubbing, or pedal edema. NEUROLOGICAL: Gross neurological examination did not reveal any focal deficits. SKIN: No rashes. - Labs CBC & Chem 7: 07/28/17 09:04 07/28/17 09:04 Labs: Abnormal Lab Results - Last 24 Hours (Table) 07/28/17 07/28/17 07/28/17 Range/Units 09:04 12:10 17:09 POC Glucose (mg/dL) 104 H 153 H (75-99) mg/dL Hemoglobin A1c 7.0 H (4.2-6.1) % 07/28/17 07/29/17 Range/Units 20:25 12:04 POC Glucose (mg/dL) 230 H 214 H (75-99) mg/dL Hemoglobin A1c (4.2-6.1) % Assessment and Plan Plan: #1 history of DVT: Recommend to continue Coumadin at 8 mg a repeat INR tomorrow titrate accordingly. I do not recommend any bridging because of high risk of bleeding secondary to her renal dysfunction. And had a DVT was years ago. #2 chronic kidney disease secondary to diabetic nephropathy #3 type 2 diabetes mellitus #4 right upper quadrant pain and cortical gases with normalization of liver enzymes. #5 depression and possible acute psychosis: Management as per primary service #6 acute renal failure: Which resolved at this point of time #7 hypertension #8 dyslipidemia Recommend to continue 3 more days of metronidazole and at 120 Coumadin of 8 mg and repeat INR in 3 days patient may need about 10 mg of Coumadin
--- NOTE | 2017-07-29 14:36 | P.DS ---
Providers Date of admission: 07/27/17 19:56 Expected date of discharge: 07/29/17 Attending physician: Kandy Brennan MD Consults: 07/27/17 20:12 Consult Physician Routine Consulting Provider: Clifford Alvarez Consult Reason/Comments: follow up H & P Do you want consulting provider notified?: Yes Primary care physician: Stated None Hospital Course: Discharge Diagnoses: Brief psychotic reaction secondary to delirium Reason for Admission: Patient is a 62-year-old female who was transferred from the medical floor to the psychiatric unit, she had been adm Patient was admitted for biliary obstruction and had an ERCP which revealed a blocked biliary duct. Patient was also septic and was treated. Patient became delirious and confused shortly after the procedure, her sensorium cleared however she began expressing paranoid ideation. Patient was started on Risperdal on the medical unit but continued to have paranoid ideation after 4 days on Risperdal and was transferred to the psychiatric unit to continue stabilization. Patient had been expressing paranoid ideation regarding her family, turning off her cell phone service, people observing her and talking about her and she also had concerns that she had cancer as well as at one point voiced that she had had a tubal . Patient was slightly suspicious and guarded and questioning information and the veracity of that. Patient was not confused or disoriented on transfer but her paranoid ideation and auditory hallucinations persisted. Hospital Course: Patient was admitted on a voluntary basis, routine laboratory studies were obtained and medical consultation was obtained also. Patient was continued on the medications from the medical floor. Patient was encouraged to attend groups and activities however she did not. Patient was continued on Risperdal 1 mg twice a day. Patient was beginning to question her paranoid ideation and statements and reported no further auditory hallucinations. Patient also reported that she was not having any visual hallucinations. Patient was encouraged to eat she reported a poor appetite however did begin to eat as she is a diabetic and taking insulin. Discharge Mental Status:Appearance/Attitude: Patient is in a hospital gown, makes good eye contact, and is cooperative Behavior: Patient does not display any psychomotor agitation or retardation. Speech/Language: Patient's speech is spontaneous, of normal volume and rhythm and she is coherent. Thought Process: Patient is goal directed, no evidence of circumstantial or tangential speech. Thought Content: [Patient denies any auditory or visual hallucinations, patient is questioning some of her statements, stating she knows she is not and that no one is observing her, she is not expressing any thoughts regarding her apartment being cleaned out. Patient is sleeping well, she is reporting her appetite is not back to normal but she is eating. Suicidal/Homicidal Ideation: Patient denies any current suicidal or homicidal ideation. Sensorium/Cognition: Patient is alert, oriented to person, place and time and her memory is grossly intact. Mood/Affect: Patient's mood remains slightly guarded and her affect is appropriate. Insight/Judgement: Patient's insight and judgment are fair Laboratory Last Values WBC 6.6 k/uL (3.8-10.6) 07/28/17 09:04 RBC 3.86 m/uL (3.80-5.40) 07/28/17 09:04 Hgb 11.5 gm/dL (11.4-16.0) 07/28/17 09:04 Hct 36.0 % (34.0-46.0) 07/28/17 09:04 MCV 93.1 fL (80.0-100.0) 07/28/17 09:04 MCH 29.7 pg (25.0-35.0) 07/28/17 09:04 MCHC 31.9 g/dL (31.0-37.0) 07/28/17 09:04 RDW 18.1 % (11.5-15.5) H 07/28/17 09:04 Plt Count 252 k/uL (150-450) 07/28/17 09:04 Neutrophils % 71 % 07/28/17 09:04 Lymphocytes % 17 % 07/28/17 09:04 Monocytes % 7 % 07/28/17 09:04 Eosinophils % 2 % 07/28/17 09:04 Basophils % 0 % 07/28/17 09:04 Neutrophils # 4.7 k/uL (1.3-7.7) 07/28/17 09:04 Lymphocytes # 1.2 k/uL (1.0-4.8) 07/28/17 09:04 Monocytes # 0.5 k/uL (0-1.0) 07/28/17 09:04 Eosinophils # 0.1 k/uL (0-0.7) 07/28/17 09:04 Basophils # 0.0 k/uL (0-0.2) 07/28/17 09:04 Anisocytosis Slight 07/28/17 09:04 PT 14.5 sec (9.0-12.0) H 07/28/17 09:04 INR 1.5 (<1.2) H 07/28/17 09:04 Sodium 144 mmol/L (137-145) 07/28/17 09:04 Potassium 3.7 mmol/L (3.5-5.1) 07/28/17 09:04 Chloride 105 mmol/L (98-107) 07/28/17 09:04 Carbon Dioxide 27 mmol/L (22-30) 07/28/17 09:04 Anion Gap 12 mmol/L 07/28/17 09:04 BUN 16 mg/dL (7-17) 07/28/17 09:04 Creatinine 1.76 mg/dL (0.52-1.04) H 07/28/17 09:04 Est GFR (MDRD) Af Amer 35 (>60 ml/min/1.73 sqM) 07/28/17 09:04 Est GFR (MDRD) Non-Af 29 (>60 ml/min/1.73 sqM) 07/28/17 09:04 Glucose 93 mg/dL (74-99) 07/28/17 09:04 POC Glucose (mg/dL) 99 mg/dL (75-99) 07/29/17 06:08 POC Glu Seismograph Computer ID Gilda Jones 07/29/17 06:[address] Glu mg/dL 154 mg/dL 07/28/17 09:04 Hemoglobin A1c 7.0 % (4.2-6.1) H 07/28/17 09:04 Calcium 9.0 mg/dL (8.4-10.2) 07/28/17 09:04 Total Bilirubin 0.8 mg/dL (0.2-1.3) 07/28/17 09:04 AST 115 U/L (14-36) H 07/28/17 09:04 ALT 117 U/L (9-52) H 07/28/17 09:04 Alkaline Phosphatase 377 U/L (38-126) H 07/28/17 09:04 Total Protein 6.1 g/dL (6.3-8.2) L 07/28/17 09:04 Albumin 3.5 g/dL (3.5-5.0) 07/28/17 09:04 TSH 5.310 mIU/L (0.465-4.680) H 07/28/17 09:04 Risk Assessment:Patient's risk is low as she has no history of suicide attempts , no alcohol or drug use and has been compliant with her medications for medical reasons. Discharge Plan:Patient will be discharged home, she will resume her prior medications including her insulin pump and will be given a prescription for Flagyl for 3 days and risperdal 0.5mg bid for 7 days then 0.5mg qhs for 7 days. she will follow up at the [facility] for her medical problems, re: liver enzymes and elevated TSH and INRs. Patient has an appointment in [place] with her doctor on August 05 at 2:30PM and also has a local physician Dr Bhatt. Laboratory studies were ordered for her after discharge. Patient was seen by Medical team today prior to discharge. Patient Condition at Discharge: Stable Plan - Discharge Summary New Discharge Prescriptions: New INSULIN LISPRO (humaLOG) [humaLOG (formulary)] 0 unit SQ ACHS vial risperiDONE [RisperDAL] 0.5 mg PO BID #21 tablet Continue Furosemide [Lasix] 40 mg PO DAILY Magnesium Oxide [Mag-Ox] 420 mg PO QAM amLODIPine [Norvasc] 5 mg PO QAM Ergocalciferol (Vitamin D2) [Drisdol] 50,000 unit PO Q30D Calcitriol 0.5 mcg PO DAILY Loratadine [Claritin] 5 mg PO DAILY #30 tab Warfarin Sodium 8 mg PO DAILY@1800 #0 metroNIDAZOLE [Flagyl] 500 mg PO Q8HR #9 tab Discontinued INSULIN LISPRO (humaLOG) [humaLOG (formulary)] 0 unit SQ ACHS vial risperiDONE [RisperDAL] 1 mg PO BID tab Insulin Detemir [Levemir] 20 unit SQ HS vial Discharge Medication List Furosemide [Lasix] 40 mg PO DAILY 04/08/16 [History] Magnesium Oxide [Mag-Ox] 420 mg PO QAM 04/08/16 [History] amLODIPine [Norvasc] 5 mg PO QAM 07/06/16 [History] Ergocalciferol (Vitamin D2) [Drisdol] 50,000 unit PO Q30D 07/13/16 [History] Calcitriol 0.5 mcg PO DAILY 07/19/17 [History] Loratadine [Claritin] 5 mg PO DAILY #30 tab 07/24/17 [Rx] Warfarin Sodium 8 mg PO DAILY@1800 #0 07/27/17 [Rx] INSULIN LISPRO (humaLOG) [humaLOG (formulary)] 0 unit SQ ACHS vial 07/29/17 [Rx ] metroNIDAZOLE [Flagyl] 500 mg PO Q8HR #9 tab 07/29/17 [Rx] risperiDONE [RisperDAL] 0.5 mg PO BID #21 tablet 07/29/17 [Rx] Follow up Appointment(s)/Referral[facility]Other[facility] - 08/05/17 2:30 pm (Nita Monzon) Ambulatory/Diagnostic Orders: Prothrombin Time INR [LAB.AMB] Time Frame: 3 Days, Location: Determined By Patient Prothrombin Time INR [LAB.AMB] Time Frame: 08/03/17, Location: Determined By Patient Activity/Diet/Wound Care/Special Instructions: Remove all weapons and firearms from the home; Refrain from street drugs or alcohol; Regular diet; Activity as tolerated; Follow-up with the PCP Dr. Libia Bhatt in 1-2 days; Keep all scheduled follow-up appointments for continuity of care; Any problems call your PCP or the Crisis Line at [phone] or [phone] in case of emergency. Discharge Disposition: HOME SELF-CARE
[2017-08-02] MEDS ORDERED: ERGOCALCIFEROL 50,000 UNIT CAP PO SCH (09:00)
== END 2017-07-29 17:08 | disposition home or self-care (01) | DRG 885 ==
LOC: 3MHU 19:56
PROVIDERS: ADMIT Psychiatry & Neurology Psychiatry; ATTEND Psychiatry & Neurology Psychiatry
DX: F29 Unspecified psychosis not due to a substance or known physiological condition (principal); E11.21 Type 2 diabetes mellitus with diabetic nephropathy; E11.22 Type 2 diabetes mellitus with diabetic chronic kidney disease; E78.5 Hyperlipidemia, unspecified; I12.9 Hypertensive chronic kidney disease with stage 1 through stage 4 chronic kidney disease, or unspecified chronic kidney disease; I25.10 Atherosclerotic heart disease of native coronary artery without angina pectoris; K59.00 Constipation, unspecified; N18.9 Chronic kidney disease, unspecified; Z79.01 Long term (current) use of anticoagulants; Z79.4 Long term (current) use of insulin; Z79.899 Other long term (current) drug therapy; Z86.711 Personal history of pulmonary embolism; Z86.718 Personal history of other venous thrombosis and embolism; Z96.41 Presence of insulin pump (external) (internal); Z88.1 Allergy status to other antibiotic agents
CPT/HCPCS: 80053; 83036; 84443; 85025; 85610

== ENCOUNTER → 2017-08-19 | Outpatient (CLI) | payer BC ==
[2017-08-19 10:41] LABS: HCT 35.2 % (34.0-46.0); MCH 30.3 pg (25.0-35.0); MCHC 33.9 g/dL (31.0-37.0); MCV 89.2 fL (80.0-100.0); RBC 3.95 m/uL (3.80-5.40)
[2017-08-19 10:42] LABS: CH 29.1; CHCM 32.8; HDW 2.39; Mean Platelet Volume 8.1
[2017-08-19 11:22] LABS: Bilirubin, Delta 0.3 mg/dL (0.0-0.2); Total Bilirubin 0.5 mg/dL (0.2-1.3); Total Protein 6.9 g/dL (6.3-8.2)
[2017-08-19 17:16] LABS: Iron 56 ug/dL (50-170); Iron Saturation 20.82 (12.00-45.00); Total Iron Binding Capacity 269 ug/dL (228-460)
[2017-08-19 20:02] LABS: ANA w/Reflex to Titer POSITIVE (NEGATIVE)
== END | disposition home or self-care (01) ==
LOC: LABWHC1 10:20
PROVIDERS: ATTEND Physician Assistant
DX: R74.8 Abnormal levels of other serum enzymes (principal)
CPT/HCPCS: 36415; 80074; 80076; 82103; 82390; 82728; 83516; 83540; 83550; 84165; 85027; 86038; 86039

== ENCOUNTER → 2018-02-07 | Outpatient (CLI) | payer BC ==
[2018-02-07 14:54] LABS: Anisocytosis Slight; Basophils % (A) 0 %; Eosinophils % (A) 0 %; HCT 37.1 % (34.0-46.0); HGB 12.3 gm/dL (11.4-16.0); Lymphocytes # (A) 1.5 k/uL (1.0-4.8); Lymphocytes % (A) 14 %; MCH 29.9 pg (25.0-35.0); MCHC 33.3 g/dL (31.0-37.0); Monocytes # (A) 0.8 k/uL (0-1.0); Monocytes % (A) 8 %; Neutrophils # (A) 7.8 k/uL (1.3-7.7); Neutrophils % (A) 76 %; Platelet Count 233 k/uL (150-450); RBC 4.12 m/uL (3.80-5.40); RDW 16.3 % (11.5-15.5); WBC 10.2 k/uL (3.8-10.6)
[2018-02-07 15:08] LABS: Calcium 9.3 mg/dL (8.4-10.2); Magnesium 1.3 mg/dL (1.6-2.3); Phosphorus 3.9 mg/dL (2.5-4.5); Potassium 3.6 mmol/L (3.5-5.1); Uric Acid 7.5 mg/dL (3.7-7.4)
[2018-02-07 18:46] LABS: Iron Saturation 11.47 (12.00-45.00)
[2018-02-07 19:01] LABS: Vitamin D 25 Hydroxy 34.5 ng/mL (30.0-100.0)
[2018-02-07 20:43] LABS: Parathyroid Hormone Intact 147.4 pg/mL (14.0-72.0)
== END | disposition home or self-care (01) ==
LOC: LABWHC1 14:05
PROVIDERS: ATTEND Nurse Practitioner Family
DX: N39.0 Urinary tract infection, site not specified (principal); E83.42 Hypomagnesemia; N18.4 Chronic kidney disease, stage 4 (severe); D63.1 Anemia in chronic kidney disease; E55.9 Vitamin D deficiency, unspecified; E21.3 Hyperparathyroidism, unspecified; M10.9 Gout, unspecified
CPT/HCPCS: 36415; 80048; 82306; 82728; 83540; 83550; 83735; 83970; 84100; 84550; 85025

== ENCOUNTER → 2018-02-14 | Outpatient (CLI) | payer BC ==
--- NOTE | 2018-02-14 11:44 | USB ---
Reason for exam: clinical finding. History: Benign excisional biopsy of the right breast, 1989. Indicated problem(s): lump or thickening in the right breast. Physical Findings: Nurse Summary: 4cm thick/hard nodule in the right breast at 12 o'clock (nurse dw). US Breast RT Right breast ultrasound includes all four quadrants, the retroareolar region and axilla. Finding demonstrates a 1.2 x 1.2 x 0.9cm oval, mixed lesion at 12 o'clock, a 2.1 x 1.8 x 0.9cm irregular, hypoechoic lesion at 1 o'clock, questionable hematoma, a 0.5 x 0.7 x 0.3cm oval, hypoechoic lesion at 3 o'clock and a 1.0 x 0.9cm oval, mixed lesion at 11 o'clock. Diffuse ecchymosis and breast contusion, patient on blood thinners. Some areas suggest hematoma. These results were verbally communicated with the patient and result sheet given to the patient on 02/14/18. ASSESSMENT: Probably benign, BI-RAD 3 RECOMMENDATION: Ultrasound of the right breast in 3 months. (to evaluate resolved hematoma and true mass)
== END | disposition home or self-care (01) ==
LOC: RADUSWWP 10:05
PROVIDERS: ATTEND Internal Medicine Nephrology
DX: N64.89 Other specified disorders of breast (principal)

== ENCOUNTER → 2018-05-03 | Outpatient (CLI) | payer BC ==
[2018-05-03 10:03] LABS: Albumin 3.7 g/dL (3.5-5.0); Bilirubin, Delta 0.3 mg/dL (0.0-0.2); Bilirubin,Unconjugated 0.1 mg/dL (0.0-1.1); Total Bilirubin 0.4 mg/dL (0.2-1.3); Total Protein 6.3 g/dL (6.3-8.2)
[2018-05-04 08:46] LABS: ANA Pattern Speckled; ANA Pattern 2 See Footnote
== END | disposition home or self-care (01) ==
LOC: LABWHC1 08:33
PROVIDERS: ATTEND Physician Assistant
DX: R74.8 Abnormal levels of other serum enzymes (principal)
CPT/HCPCS: 36415; 80076; 86038; 86039

== ENCOUNTER → 2018-05-09 | Outpatient (CLI) | payer BC ==
--- NOTE | 2018-05-09 12:16 | USB ---
Reason for exam: follow-up at short interval from prior study. History: Benign excisional biopsy of the right breast, 1989. Physical Findings: Nurse Summary: right breast 12 o'clock prominent tissue, all soft, movable (nurse ts). US Breast RT Right complete breast ultrasound includes all four quadrants, the retroareolar region and axilla. Finding demonstrates a 0.4 x 0.4 x 0.3cm oval, complex cystic lesion at 12 o'clock, a 0.4 x 0.3 x 0.3cm oval, mixed lesion at 1 o'clock 4cm from nipple, a 0.9 x 0.5 x 0.4cm oval, solid lesion with adjacent cyst at 1 o'clock maybe fat lobule, a 0.4 x 0.5 x 0.4cm oval, cystic lesion at 11 o'clock, a 1.1 x 1.3 x 0.4cm oval, lobular, solid lesion at 11:30 maybe prior resolving hematoma and a 1.4 x 0.9 x 1.0cm oval lesion at the axilla, deep node. These results were verbally communicated with the patient and result sheet given to the patient on 05/09/18. ASSESSMENT: Probably benign, BI-RAD 3 RECOMMENDATION: Ultrasound of the right breast in 3 months.
== END | disposition home or self-care (01) ==
LOC: RADUSWWP 09:55
PROVIDERS: ATTEND Internal Medicine Nephrology
DX: N64.89 Other specified disorders of breast (principal)

== ENCOUNTER 2018-05-13 22:17 | Emergency (ER) | payer BC ==
[2018-05-13 22:29] LABS: Glucose,Whole Blood 140 mg/dL (75-99)
[2018-05-13 22:32] VITALS: BP 165/85; PULSE 86; RESP 18; TEMP 98.3
[2018-05-13] MEDS ORDERED: MAGNESIUM OXIDE 400 MG TAB PO STA (22:37)
--- NOTE | 2018-05-13 22:40 | ED ---
General Adult HPI - General Chief complaint: Recheck/Abnormal Lab/Rx Stated complaint: Low blood sugar/mag Time Seen by Provider: 05/13/18 22:32 Source: patient, RN notes reviewed, old records reviewed Mode of arrival: ambulatory Limitations: no limitations - History of Present Illness Initial comments: This is a 62-year-old female the ER for evaluation patient presents today as a patient from her nephrologists office secondary to abnormal outpatient lab test. Patient lab tests as a preliminary for future appointment with Dr. Stahl her structural rigger. Patient is not a dialysis patient. Patient is a symptomatically. Patient states she didn't night without difficulty. Patient was told her blood sugar was lower magnesium was low. Patient again otherwise has no complaints. Admits to good appetite. No nausea vomiting or diarrhea, no chest pain or shortness of breath. Patient - Related Data Home Medications Medication Instructions Recorded Confirmed Furosemide [Lasix] 40 mg PO DAILY 04/08/16 12/07/17 Magnesium Oxide [Mag-Ox] 420 mg PO QAM 04/08/16 12/07/17 amLODIPine [Norvasc] 5 mg PO QAM 07/06/16 12/07/17 Ergocalciferol (Vitamin D2) 50,000 unit PO Q30D 07/13/16 12/07/17 [Drisdol] Calcitriol 0.5 mcg PO DIRECTED 07/19/17 12/07/17 Allopurinol [Zyloprim] 100 mg PO DAILY 12/02/17 12/07/17 Warfarin Sodium 6 mg PO DAILY@1800 12/02/17 12/07/17 Previous Rx's Medication Instructions Recorded INSULIN LISPRO (humaLOG) [humaLOG] 0 unit SQ ACHS vial 07/29/17 Allergies Allergy/AdvReac Type Severity Reaction Status Date / Time azithromycin Allergy Unknown Rash/Hives Verified 05/13/18 22:31 amoxicillin Allergy Rash/Hives Verified 05/13/18 22:31 Review of Systems ROS Statement: Those systems with pertinent positive or pertinent negative responses have been documented in the HPI. ROS Other: All systems not noted in ROS Statement are negative. Past Medical History Past Medical History: Coronary Artery Disease (CAD), Diabetes Mellitus, Deep Vein Thrombosis (DVT), Hyperlipidemia, Hypertension, Pulmonary Embolus (PE), Renal Disease Additional Past Medical History / Comment(s): Vitamin D Deficency, pt has insulin pump, elevated liver enzymes History of Any Multi-Drug Resistant Organisms: None Reported Past Surgical History: Appendectomy, Cholecystectomy Additional Past Surgical History / Comment(s): Breast Biopsy, Carapal tunnel to right hand, Heart Catherization, colonoscopy 08/2014 Past Anesthesia/Blood Transfusion Reactions: No Reported Reaction Past Psychological History: No Psychological Hx Reported Smoking Status: Never smoker Past Alcohol Use History: Occasional Past Drug Use History: None Reported - Past Family History Mother Family Medical History: No Reported History Additional Family Medical History / Comment(s): heart disease Father Additional Family Medical History / Comment(s): heart disease General Exam Limitations: no limitations General appearance: alert, in no apparent distress Head exam: Present: atraumatic, normocephalic, normal inspection Eye exam: Present: normal appearance, PERRL, EOMI. Absent: scleral icterus, conjunctival injection, periorbital swelling ENT exam: Present: normal exam, mucous membranes moist Neck exam: Present: normal inspection. Absent: tenderness, meningismus, lymphadenopathy Respiratory exam: Present: normal lung sounds bilaterally. Absent: respiratory distress, wheezes, rales, rhonchi, stridor Cardiovascular Exam: Present: regular rate, normal rhythm, normal heart sounds. Absent: systolic murmur, diastolic murmur, rubs, gallop, clicks GI/Abdominal exam: Present: soft, normal bowel sounds. Absent: distended, tenderness, guarding, rebound, rigid Extremities exam: Present: normal inspection, full ROM, normal capillary refill. Absent: tenderness, pedal edema, joint swelling, calf tenderness Back exam: Present: normal inspection Neurological exam: Present: alert, oriented X3, CN II-XII intact Psychiatric exam: Present: normal affect, normal mood Skin exam: Present: warm, dry, intact, normal color. Absent: rash Course Vital Signs 05/13/18 22:24 Temperature 98.3 F Pulse Rate 86 Respiratory 18 Rate Blood Pressure 165/85 O2 Sat by Pulse 99 Oximetry - Reevaluation(s) Reevaluation #1: 05/13/18 22:39 Unable to achieve patient's lab results Medical Decision Making - Medical Decision Making 62 female the ER for evaluation, patient came in for evaluation of abnormal outpatient lab test. Low magnesium, low blood sugar, patient did eat dinner without difficulty, blood sugar now currently normal. Patient given magnesium here in ER, states she did eat dinner, expect night improved. Patient is a symptomatically can be discharged home - Lab Data Lab Results 05/13/18 Range/Units 22:27 POC Glucose (mg/dL) 140 H (75-99) mg/dL POC Glu Car Greaser ID Mitra Kelly Disposition Clinical Impression: Acute on chronic renal failure, Hypomagnesemia, Hypoglycemia Narrative: Symptoms Resolved Disposition: HOME SELF-CARE Condition: Good Instructions: Normal Exam (ED) Is patient prescribed a controlled substance at d/c from ED?: No Referrals: Libia Bhatt DO [Primary Care Provider] - 1-2 days
== END 2018-05-13 22:50 | disposition home or self-care (01) ==
LOC: EC 22:17
DX: I12.9 Hypertensive chronic kidney disease with stage 1 through stage 4 chronic kidney disease, or unspecified chronic kidney disease (principal); N17.9 Acute kidney failure, unspecified; N18.9 Chronic kidney disease, unspecified; E11.22 Type 2 diabetes mellitus with diabetic chronic kidney disease; E11.649 Type 2 diabetes mellitus with hypoglycemia without coma; E83.42 Hypomagnesemia; E55.9 Vitamin D deficiency, unspecified; I25.10 Atherosclerotic heart disease of native coronary artery without angina pectoris; E78.5 Hyperlipidemia, unspecified; Z86.711 Personal history of pulmonary embolism; Z86.718 Personal history of other venous thrombosis and embolism; Z95.5 Presence of coronary angioplasty implant and graft; Z96.41 Presence of insulin pump (external) (internal); Z88.0 Allergy status to penicillin; Z88.1 Allergy status to other antibiotic agents; Z79.01 Long term (current) use of anticoagulants; Z79.4 Long term (current) use of insulin; Z79.899 Other long term (current) drug therapy
CPT/HCPCS: 36415; 99283

== ENCOUNTER 2018-06-05 01:46 | Emergency (ER) | payer MEDICARE, BC ==
--- NOTE | 2018-06-05 03:19 | ED ---
Back Pain HPI - General Source: patient, RN notes reviewed Limitations: no limitations <Sejal Persaud - Last Filed: 06/05/18 04:41> <Miller Elliott - Last Filed: 06/05/18 07:14> - General Chief Complaint: Back Pain/Injury Stated Complaint: Back Spasms Time Seen by Provider: 06/05/18 02:52 - History of Present Illness Initial Comments: This is a 63-year-old female who presents to the emergency department with chief complaint of right-sided back spasms. Patient states that at midnight tonight she was lying in bed and began to have extreme right-sided back spasms. Patient states that she has a history of back spasms but that this is the worst that it has been. Patient denies any recent illnesses or infections. She denies fevers or chills, chest pain shortness of breath, abdominal pain, nausea or vomiting, diarrhea or constipation, dysuria or hematuria, dizziness, headache or vision changes. She does state that she has stage IV kidney disease and diabetes. (Sejal Persaud) - Related Data Home Medications Medication Instructions Recorded Confirmed Furosemide [Lasix] 40 mg PO DAILY 04/08/16 05/13/18 Ergocalciferol (Vitamin D2) 50,000 unit PO Q30D 07/13/16 05/13/18 [Drisdol] Calcitriol 0.5 mcg PO MOTUWETHFR 07/19/17 05/13/18 Warfarin Sodium 6 mg PO MOFR 12/02/17 05/13/18 Atorvastatin [Lipitor] 40 mg PO DAILY 05/13/18 05/13/18 Insulin Aspart (For Pump) [NovoLOG 0.01 unit SQ-PUMP CONTINUOUS 05/13/18 (For Pump)] Warfarin [Coumadin] 4 mg PO SUTUWETHSA 05/13/18 05/13/18 Allergies Allergy/AdvReac Type Severity Reaction Status Date / Time azithromycin Allergy Unknown Rash/Hives Verified 06/05/18 02:16 amoxicillin Allergy Rash/Hives Verified 06/05/18 02:16 Review of Systems ROS Other: All systems not noted in ROS Statement are negative. <Sejal Persaud - Last Filed: 06/05/18 04:41> ROS Other: All systems not noted in ROS Statement are negative. <Dedoe,Miller M - Last Filed: 06/05/18 07:14> ROS Statement: Those systems with pertinent positive or pertinent negative responses have been documented in the HPI. Past Medical History Past Medical History: Coronary Artery Disease (CAD), Diabetes Mellitus, Deep Vein Thrombosis (DVT), Hyperlipidemia, Hypertension, Pulmonary Embolus (PE), Renal Disease Additional Past Medical History / Comment(s): Vitamin D Deficency, pt has insulin pump, elevated liver enzymes History of Any Multi-Drug Resistant Organisms: None Reported Past Surgical History: Appendectomy, Cholecystectomy Additional Past Surgical History / Comment(s): Breast Biopsy, Carapal tunnel to right hand, Heart Catherization, colonoscopy 08/2014 Past Anesthesia/Blood Transfusion Reactions: No Reported Reaction Past Psychological History: No Psychological Hx Reported Smoking Status: Never smoker Past Alcohol Use History: Occasional Past Drug Use History: None Reported - Past Family History Mother Family Medical History: No Reported History Additional Family Medical History / Comment(s): heart disease Father Additional Family Medical History / Comment(s): heart disease <Sejal Persaud M - Last Filed: 06/05/18 04:41> General Exam Limitations: no limitations Back exam: Present: normal inspection, full ROM, tenderness (Right lumbar musculature.). Absent: vertebral tenderness <Sejal Persaud M - Last Filed: 06/05/18 04:41> <Miller Elliott M - Last Filed: 06/05/18 07:14> - General Exam Comments Initial Comments: General: Awake and alert, well-developed; in no apparent distress. Lying comfortably on ED stretcher. HEENT: Head atraumatic, normocephalic. Pupils are equal, round and reactive to light. Extraocular movements intact. Oropharynx moist without erythema or exudate. Neck: Supple. Normal ROM. Cardiovascular: Regular rate and rhythm. No murmurs, rubs or gallops. Chest symmetrical. Respiratory: Lungs clear to auscultation bilaterally. No wheezes, rales or rhonchi. Normal respiratory effort with no use of accessory muscles. Abdomen: Soft, non-tender, non-distended. No rigidity, rebound or guarding. Normal bowel sounds in all 4 quadrants. Musculoskeletal: Normal ROM, no tenderness bilateral upper and lower extremities. Ambulating normally. Skin: [place], warm and dry without rashes or lesions. Neurological: Alert and oriented x3. CN II-XII grossly intact. Speech is fluent and answers are appropriate. No focal neuro deficits. Psychiatric: Normal mood and affect. No overt signs of depression or anxiety noted. (Sejal Persaud) Course <Sejal Persaud - Last Filed: 06/05/18 04:41> <Miller Elliott - Last Filed: 06/05/18 07:14> Vital Signs 06/05/18 06/05/18 06/05/18 02:14 04:50 06:20 Temperature 97.9 F 98.6 F Pulse Rate 75 72 65 Respiratory 20 19 15 Rate Blood Pressure 149/83 175/77 154/70 O2 Sat by Pulse 100 96 98 Oximetry - Reevaluation(s) Reevaluation #1: Patient resting comfortably in bed at this time. Awaiting computed tomography scan results. Case will be signed out to Dr. Mayers at this time. 06/05/18 04:41 (Sejal Persaud) Medical Decision Making - Lab Data Result diagrams: 06/05/18 03:22 06/05/18 03:22 <Sejal Persaud - Last Filed: 06/05/18 04:41> - Lab Data Result diagrams: 06/05/18 03:22 06/05/18 03:22 <Miller Elliott - Last Filed: 06/05/18 07:14> - Lab Data Lab Results 06/05/18 06/05/18 Range/Units 03:22 03:22 WBC 9.7 (3.8-10.6) k/uL RBC 4.24 (3.80-5.40) m/uL Hgb 12.6 (11.4-16.0) gm/dL Hct 39.5 (34.0-46.0) % MCV 93.1 (80.0-100.0) fL MCH 29.6 (25.0-35.0) pg MCHC 31.8 (31.0-37.0) g/dL RDW 14.5 (11.5-15.5) % Plt Count 199 (150-450) k/uL Neutrophils % 76 % Lymphocytes % 13 % Monocytes % 8 % Eosinophils % 2 % Basophils % 0 % Neutrophils # 7.3 (1.3-7.7) k/uL Lymphocytes # 1.3 (1.0-4.8) k/uL Monocytes # 0.8 (0-1.0) k/uL Eosinophils # 0.2 (0-0.7) k/uL Basophils # 0.0 (0-0.2) k/uL Sodium 138 (137-145) mmol/L Potassium 4.3 (3.5-5.1) mmol/L Chloride 100 (98-107) mmol/L Carbon Dioxide 21 L (22-30) mmol/L Anion Gap 17 mmol/L BUN 44 H (7-17) mg/dL Creatinine 2.60 H (0.52-1.04) mg/dL Est GFR (CKD-EPI)AfAm 22 (>60 ml/min/1.73 sqM) Est GFR (CKD-EPI)NonAf 19 (>60 ml/min/1.73 sqM) Glucose 170 H (74-99) mg/dL Calcium 9.0 (8.4-10.2) mg/dL Total Bilirubin 0.6 (0.2-1.3) mg/dL AST 32 (14-36) U/L ALT 41 (9-52) U/L Alkaline Phosphatase 248 H (38-126) U/L Total Protein 6.8 (6.3-8.2) g/dL Albumin 4.0 (3.5-5.0) g/dL Disposition <Sejal Persaud M - Last Filed: 06/05/18 04:41> Is patient prescribed a controlled substance at d/c from ED?: No <Miller Elliott M - Last Filed: 06/05/18 07:14> Clinical Impression: Back pain Disposition: HOME SELF-CARE Condition: Stable Instructions: Back Pain (ED) Additional Instructions: Please return to the Emergency Department if symptoms worsen or any other concerns. Referrals: Libia Bhatt DO [Primary Care Provider] - 1-2 days
[2018-06-05 03:38] LABS: Basophils % (A) 0 %; Eosinophils # (A) 0.2 k/uL (0-0.7); Eosinophils % (A) 2 %; HCT 39.5 % (34.0-46.0); HGB 12.6 gm/dL (11.4-16.0); Lymphocytes # (A) 1.3 k/uL (1.0-4.8); Lymphocytes % (A) 13 %; MCH 29.6 pg (25.0-35.0); MCHC 31.8 g/dL (31.0-37.0); MCV 93.1 fL (80.0-100.0); Mean Platelet Volume 8.8; Monocytes # (A) 0.8 k/uL (0-1.0); Monocytes % (A) 8 %; Neutrophils # (A) 7.3 k/uL (1.3-7.7); Neutrophils % (A) 76 %; Platelet Count 199 k/uL (150-450); RBC 4.24 m/uL (3.80-5.40); RDW 14.5 % (11.5-15.5); WBC 9.7 k/uL (3.8-10.6)
[2018-06-05 03:40] LABS: Potassium 4.3 mmol/L (3.5-5.1); Total Bilirubin 0.6 mg/dL (0.2-1.3); Total Protein 6.8 g/dL (6.3-8.2)
--- NOTE | 2018-06-05 04:54 | CT ---
EXAMINATION TYPE: CT abdomen pelvis wo con DATE OF EXAM: 06/05/2018 COMPARISON: 07/19/2017 HISTORY: Lower abd pain, back pain CT DLP: 1497.50 mGycm Automated exposure control for dose reduction was used. TECHNIQUE: Helical acquisition of images was performed from the lung bases through the pelvis. FINDINGS: Lung bases are clear. There is no pleural effusion. There is some air in the biliary tree. There are clips from cholecystectomy. Spleen appears normal. There is no evidence of a pancreatic mass. There i s significant pancreatic atrophy. There is calcification that is punctate in the pancreatic head. There is a small hiatal hernia. There is no adrenal mass. Kidneys have normal size and contour. There is no hydronephrosis. There is no retroperitoneal adenopathy. There is no ascites. I see no intestinal wall thickening. There are no dilated loops. Bladder distends smoothly. Uterus is anteverted. I see no bony destructive process. T here is no sign of free air. Appendix is not seen. There is no sign of appendicitis. IMPRESSION: THERE IS HIATAL HERNIA. PANCREATIC ATROPHY WITH SMALL PUNCTATE CALCIFICATIONS THAT COULD RELATE TO O LD INFLAMMATORY DISEASE. THERE IS AIR IN THE BILIARY TREE THAT IS A CHANGE COMPARED TO OLD EXAM AND C ONSISTENT WITH REFLUX IN THIS PATIENT WITH BILIARY SURGERY. NO FREE AIR. NO SIGN OF ACUTE ABDOMEN AND PELVIS.
[2018-06-05 06:21] VITALS: BP 154/70
[2018-06-05 07:23] VITALS: PULSE 71; RESP 18; TEMP 97.5
== END 2018-06-05 07:23 | disposition home or self-care (01) ==
LOC: EC 01:46
DX: M54.9 Dorsalgia, unspecified (principal); I25.10 Atherosclerotic heart disease of native coronary artery without angina pectoris; E78.5 Hyperlipidemia, unspecified; I12.9 Hypertensive chronic kidney disease with stage 1 through stage 4 chronic kidney disease, or unspecified chronic kidney disease; N18.4 Chronic kidney disease, stage 4 (severe); E11.22 Type 2 diabetes mellitus with diabetic chronic kidney disease; E55.9 Vitamin D deficiency, unspecified; Z86.718 Personal history of other venous thrombosis and embolism; Z86.711 Personal history of pulmonary embolism; Z95.818 Presence of other cardiac implants and grafts; Z79.4 Long term (current) use of insulin; Z79.01 Long term (current) use of anticoagulants; Z79.899 Other long term (current) drug therapy; Z88.1 Allergy status to other antibiotic agents; Z88.0 Allergy status to penicillin
CPT/HCPCS: 36415; 74176; 80053; 85025; 99284

== ENCOUNTER → 2018-06-13 | Outpatient (CLI) | payer MEDICARE, BC | END | disposition home or self-care (01) | LOC: RADMRIMAIN 05:55 | PROVIDERS: ATTEND Internal Medicine Gastroenterology | DX: Z53.9 Procedure and treatment not carried out, unspecified reason (principal) ==

== ENCOUNTER → 2018-06-14 | Outpatient (CLI) | payer MEDICARE, BC ==
[2018-06-14 09:35] LABS: Albumin 3.9 g/dL (3.5-5.0); Bilirubin, Delta 0.3 mg/dL (0.0-0.2); Bilirubin,Unconjugated 0.2 mg/dL (0.0-1.1); Total Bilirubin 0.5 mg/dL (0.2-1.3); Total Protein 6.6 g/dL (6.3-8.2)
[2018-06-15 10:14] LABS: ANA Pattern Homogeneous; ANA Pattern 2 See Footnote
== END | disposition home or self-care (01) ==
LOC: LABWHC1 07:44
PROVIDERS: ATTEND Physician Assistant
DX: K62.5 Hemorrhage of anus and rectum (principal); R74.8 Abnormal levels of other serum enzymes; R94.5 Abnormal results of liver function studies
CPT/HCPCS: 36415; 80076; 82565; 84520; 86038; 86039

== ENCOUNTER → 2018-08-10 | Outpatient (CLI) | payer BC ==
--- NOTE | 2018-08-10 10:35 | USB ---
Reason for exam: follow-up at short interval from prior study. History: Benign excisional biopsy of the right breast, 1989. Physical Findings: Nurse Summary: doctor felt concerned about bruising and lump last January (nurse kp). US Breast RT Right complete breast ultrasound includes all four quadrants, the retroareolar region and axilla. Finding demonstrates a 0.5 x 0.4 x 0.5cm cystic lesion at 12 o'clock smaller from 02/14/18 where is measured 8 x 7 x 6mm, a 0.3 x 0.3 x 0.3cm cystic lesion at 1 o'clock and a 0.4 x 0.4 x 0.4cm mixed lesion at 11 o'clock and round, had an a more cystic appearance on 05/09/18. 6 month follow up recommended. These results were verbally communicated with the patient and result sheet given to the patient on 08/10/18. ASSESSMENT: Probably benign, BI-RAD 3 RECOMMENDATION: Ultrasound of the right breast in 6 months. (attention 11 o'clock and 6 o'clock) Follow-up diagnostic mammogram of both breasts in 1 year. (annual exam due in 1 month)
== END | disposition home or self-care (01) ==
LOC: RADUSWWP 08:31
PROVIDERS: ATTEND Internal Medicine Nephrology
DX: N63.0 Unspecified lump in unspecified breast (principal)

== ENCOUNTER → 2018-09-28 | Outpatient (CLI) | payer MEDICARE, BC ==
--- NOTE | 2018-09-28 10:56 | XR ---
EXAMINATION TYPE: XR foot limited RT DATE OF EXAM: 09/28/2018 COMPARISON: NONE HISTORY: contusion to toe TECHNIQUE: Two views are submitted. FINDINGS: The osseous structures are intact. There is no acute fracture or dislocation. Mild narrowing of th e first MTP. Diffuse osteopenia noted and there are vascular calcifications. Tiny calcaneal spur. The re is a lucency involving the base of the proximal phalanx fourth digit. IMPRESSION: 1. Correlate for fracture base proximal phalanx fourth digit..
== END | disposition home or self-care (01) ==
LOC: RADXRYALE 08:36
PROVIDERS: ATTEND Nurse Practitioner Family
DX: S90.31XA Contusion of right foot, initial encounter (principal)

== ENCOUNTER 2018-11-16 21:05 | Inpatient (IN) | payer MEDICARE, BC ==
[2018-11-16 22:05] LABS: Glucose,Whole Blood 123 mg/dL (75-99)
[2018-11-16 23:01] LABS: Basophils % (A) 0 %; Eosinophils # (A) 0.1 k/uL (0-0.7); Eosinophils % (A) 1 %; HCT 34.3 % (34.0-46.0); HGB 11.6 gm/dL (11.4-16.0); Lymphocytes # (A) 0.9 k/uL (1.0-4.8); Lymphocytes % (A) 9 %; MCH 30.3 pg (25.0-35.0); MCHC 33.8 g/dL (31.0-37.0); MCV 89.6 fL (80.0-100.0); Mean Platelet Volume 8.6; Monocytes # (A) 0.8 k/uL (0-1.0); Monocytes % (A) 8 %; Neutrophils # (A) 8.3 k/uL (1.3-7.7); Neutrophils % (A) 81 %; Platelet Count 219 k/uL (150-450); RBC 3.83 m/uL (3.80-5.40); WBC 10.3 k/uL (3.8-10.6)
--- NOTE | 2018-11-16 23:21 | XR ---
EXAMINATION TYPE: XR KUB DATE OF EXAM: 11/16/2018 COMPARISON: 09/20/2014 HISTORY: Abdominal pain TECHNIQUE: 2 views upright FINDINGS: There is no sign of intestinal obstruction or pneumoperitoneum. There are clips from cholec ystectomy. Lung bases are clear. There are no pathologic calcifications over the kidneys. IMPRESSION: Nonacute abdomen. No adverse change.
[2018-11-16 23:22] LABS: Appearance,Urine Cloudy (Clear); Bacteria,Urine Occasional /hpf; Bilirubin,Urine Negative (Negative); Blood,Urine Negative (Negative); Calcium Oxalate Crystals,Urine Occasional /hpf; Color,Urine Yellow; Glucose,Urine (UA) Negative (Negative); Hyaline Casts,Urine 10 /lpf (0-2); Ketones,Urine Negative (Negative); Leukocyte Esterase,Urine Negative (Negative); Mucus,Urine Occasional /hpf; Nitrite,Urine Negative (Negative); Protein,Urine Trace (Negative); RBC,Urine 1 /hpf (0-5); Specific Gravity,Urine 1.012 (1.001-1.035); Squamous Epithelial Cell,Urine 17 /hpf (0-4); Urobilinogen,Urine <2.0 mg/dL (<2.0); WBC,Urine 4 /hpf (0-5)
--- NOTE | 2018-11-16 23:50 | ED ---
Recheck HPI - General Chief Complaint: Recheck/Abnormal Lab/Rx Stated Complaint: low blood sugar Time Seen by Provider: 11/16/18 22:17 Source: patient, RN notes reviewed, old records reviewed Mode of arrival: ambulatory Limitations: no limitations - History of Present Illness Initial Comments: Patient is a 63-year-old female presents responsive patient's blood sugar. She reports his been low despite adjusting her sliding scale and basilar insulin. She reports that she called her languages and literature instructor today, and they adjusted her basal her insulin on her Medtronic pump. They lowered this. She states that after dinner her blood sugar continued to be low around 53. Reports over the past few weeks her blood sugar is always low in the evening. She states she saw her primary care provider today was evaluated for upper abdominal pain. She states she was told was a pulled muscle. She denies any nausea vomiting or diarrhea. - Related Data Home Medications Medication Instructions Recorded Confirmed Furosemide [Lasix] 40 mg PO DAILY 04/08/16 11/16/18 Ergocalciferol (Vitamin D2) 50,000 unit PO SA 07/13/16 11/16/18 [Drisdol] Calcitriol 0.5 mcg PO MOTUWETHFR 07/19/17 11/16/18 Warfarin Sodium 6 mg PO MOWEFRSA 12/02/17 11/16/18 Insulin Aspart (For Pump) [NovoLOG 0.01 unit SQ-PUMP CONTINUOUS 05/13/18 (For Pump)] Warfarin [Coumadin] 4 mg PO SUTUTH 05/13/18 11/16/18 Allopurinol [Zyloprim] 100 mg PO DAILY 11/16/18 11/16/18 Cyanocobalamin (Vitamin B-12) 500 mcg PO DAILY 11/16/18 11/16/18 [Vitamin B-12] Pravastatin Sodium [Pravachol] 40 mg PO HS 11/16/18 11/16/18 Allergies Allergy/AdvReac Type Severity Reaction Status Date / Time azithromycin Allergy Unknown Rash/Hives Verified 11/16/18 22:30 amoxicillin Allergy Rash/Hives Verified 11/16/18 22:30 Review of Systems ROS Statement: Those systems with pertinent positive or pertinent negative responses have been documented in the HPI. ROS Other: All systems not noted in ROS Statement are negative. Past Medical History Past Medical History: Coronary Artery Disease (CAD), Diabetes Mellitus, Deep Vein Thrombosis (DVT), Hyperlipidemia, Hypertension, Pulmonary Embolus (PE), Renal Disease Additional Past Medical History / Comment(s): Vitamin D Deficency, pt has insulin pump, elevated liver enzymes History of Any Multi-Drug Resistant Organisms: None Reported Past Surgical History: Appendectomy, Cholecystectomy Additional Past Surgical History / Comment(s): Breast Biopsy, Carapal tunnel to right hand, Heart Catherization, colonoscopy 08/2014 Past Anesthesia/Blood Transfusion Reactions: No Reported Reaction Past Psychological History: No Psychological Hx Reported Smoking Status: Never smoker Past Alcohol Use History: Occasional Past Drug Use History: None Reported - Past Family History Mother Family Medical History: No Reported History Additional Family Medical History / Comment(s): heart disease Father Additional Family Medical History / Comment(s): heart disease General Exam - General Exam Comments Initial Comments: 63-year-old female. Alert and oriented. Patient is noted acute distress. Limitations: no limitations General appearance: alert, in no apparent distress Head exam: Present: atraumatic, normocephalic, normal inspection Eye exam: Present: normal appearance, PERRL, EOMI. Absent: scleral icterus, conjunctival injection, periorbital swelling ENT exam: Present: normal exam, mucous membranes moist Neck exam: Present: normal inspection. Absent: tenderness, meningismus, lymphadenopathy Respiratory exam: Present: normal lung sounds bilaterally. Absent: respiratory distress, wheezes, rales, rhonchi, stridor Cardiovascular Exam: Present: regular rate, normal rhythm, normal heart sounds. Absent: systolic murmur, diastolic murmur, rubs, gallop, clicks GI/Abdominal exam: Present: soft, tenderness (Epigastric tenderness), normal bowel sounds. Absent: distended, guarding, rebound, rigid Extremities exam: Present: normal inspection, full ROM, normal capillary refill. Absent: tenderness, pedal edema, joint swelling, calf tenderness Back exam: Present: normal inspection Neurological exam: Present: alert, oriented X3, CN II-XII intact Psychiatric exam: Present: normal affect, normal mood Course Vital Signs 11/16/18 21:46 Temperature 97.9 F Pulse Rate 60 Respiratory 20 Rate Blood Pressure 125/63 O2 Sat by Pulse 93 L Oximetry Medical Decision Making - Medical Decision Making 63-year-old female presents emergency with chief complaint of concern for low blood sugar episodes. Blood sugar was 126 on arrival. She also said some upper abdominal pain. Lab work was obtained. Patient has evidence of acute renal failure. She has history of chronic kidney disease related to diabetes. Patient denies any significant back pain. She still is producing urine. GFR is markedly decreased at this time discussed 6. Patient has been for these results. We'll start on IV fluids, gentle hydration. Advised Patient we would like to admit her and she agrees. We'll consult patient's mixer driver Dr. Stahl. Patient requests to be admitted to Dr. Alvarez's group, to see Swapna Billingsley ACCESS RN. - Lab Data Result diagrams: 11/16/18 22:46 11/16/18 22:46 Lab Results 11/16/18 11/16/18 11/16/18 Range/Units 21:53 22:46 22:46 WBC 10.3 (3.8-10.6) k/uL RBC 3.83 (3.80-5.40) m/uL Hgb 11.6 (11.4-16.0) gm/dL Hct 34.3 (34.0-46.0) % MCV 89.6 (80.0-100.0) fL MCH 30.3 (25.0-35.0) pg MCHC 33.8 (31.0-37.0) g/dL RDW 15.0 (11.5-15.5) % Plt Count 219 (150-450) k/uL Neutrophils % 81 % Lymphocytes % 9 % Monocytes % 8 % Eosinophils % 1 % Basophils % 0 % Neutrophils # 8.3 H (1.3-7.7) k/uL Lymphocytes # 0.9 L (1.0-4.8) k/uL Monocytes # 0.8 (0-1.0) k/uL Eosinophils # 0.1 (0-0.7) k/uL Basophils # 0.0 (0-0.2) k/uL Sodium 135 L (137-145) mmol/L Potassium 3.1 L (3.5-5.1) mmol/L Chloride 92 L (98-107) mmol/L Carbon Dioxide 25 (22-30) mmol/L Anion Gap 18 mmol/L BUN 48 H (7-17) mg/dL Creatinine 6.32 H (0.52-1.04) mg/dL Est GFR (CKD-EPI)AfAm 7 (>60 ml/min/1.73 sqM) Est GFR (CKD-EPI)NonAf 6 (>60 ml/min/1.73 sqM) Glucose 131 H (74-99) mg/dL POC Glucose (mg/dL) 123 H (75-99) mg/dL POC Glu Account Services Coordinator ID Arft, Castro Calcium 8.2 L (8.4-10.2) mg/dL Total Bilirubin 0.5 (0.2-1.3) mg/dL AST 43 H (14-36) U/L ALT 25 (9-52) U/L Alkaline Phosphatase 108 (38-126) U/L Total Protein 6.8 (6.3-8.2) g/dL Albumin 4.0 (3.5-5.0) g/dL Amylase 43 (30-110) U/L Lipase 20 L (23-300) U/L Urine Color Urine Appearance (Clear) Urine pH (5.0-8.0) Ur Specific [place] (1.001-1.035) Urine Protein (Negative) Urine Glucose (UA) (Negative) Urine Ketones (Negative) Urine Blood (Negative) Urine Nitrite (Negative) Urine Bilirubin (Negative) Urine Urobilinogen (<2.0) mg/dL Ur Leukocyte Esterase (Negative) Urine RBC (0-5) /hpf Urine WBC (0-5) /hpf Ur Squamous Epith Cells (0-4) /hpf Calcium Oxalate Crystal (None) /hpf Urine Bacteria (None) /hpf Hyaline Casts (0-2) /lpf Urine Mucus (None) /hpf 11/16/18 Range/Units 22:58 WBC (3.8-10.6) k/uL RBC (3.80-5.40) m/uL Hgb (11.4-16.0) gm/dL Hct (34.0-46.0) % MCV (80.0-100.0) fL MCH (25.0-35.0) pg MCHC (31.0-37.0) g/dL RDW (11.5-15.5) % Plt Count (150-450) k/uL Neutrophils % % Lymphocytes % % Monocytes % % Eosinophils % % Basophils % % Neutrophils # (1.3-7.7) k/uL Lymphocytes # (1.0-4.8) k/uL Monocytes # (0-1.0) k/uL Eosinophils # (0-0.7) k/uL Basophils # (0-0.2) k/uL Sodium (137-145) mmol/L Potassium (3.5-5.1) mmol/L Chloride (98-107) mmol/L Carbon Dioxide (22-30) mmol/L Anion Gap mmol/L BUN (7-17) mg/dL Creatinine (0.52-1.04) mg/dL Est GFR (CKD-EPI)AfAm (>60 ml/min/1.73 sqM) Est GFR (CKD-EPI)NonAf (>60 ml/min/1.73 sqM) Glucose (74-99) mg/dL POC Glucose (mg/dL) (75-99) mg/dL POC Glu Account Services Coordinator ID Calcium (8.4-10.2) mg/dL Total Bilirubin (0.2-1.3) mg/dL AST (14-36) U/L ALT (9-52) U/L Alkaline Phosphatase (38-126) U/L Total Protein (6.3-8.2) g/dL Albumin (3.5-5.0) g/dL Amylase (30-110) U/L Lipase (23-300) U/L Urine Color Yellow Urine Appearance Cloudy H (Clear) Urine pH 5.0 (5.0-8.0) Ur Specific [place] 1.012 (1.001-1.035) Urine Protein Trace H (Negative) Urine Glucose (UA) Negative (Negative) Urine Ketones Negative (Negative) Urine Blood Negative (Negative) Urine Nitrite Negative (Negative) Urine Bilirubin Negative (Negative) Urine Urobilinogen <2.0 (<2.0) mg/dL Ur Leukocyte Esterase Negative (Negative) Urine RBC 1 (0-5) /hpf Urine WBC 4 (0-5) /hpf Ur Squamous Epith Cells 17 H (0-4) /hpf Calcium Oxalate Crystal Occasional H (None) /hpf Urine Bacteria Occasional H (None) /hpf Hyaline Casts 10 H (0-2) /lpf Urine Mucus Occasional H (None) /hpf Disposition Clinical Impression: Acute renal failure Disposition: ADMITTED IP TO THIS HOSP Condition: Stable Is patient prescribed a controlled substance at d/c from ED?: No Referrals: Libia Bhatt DO [Primary Care Provider] - 1-2 days Time of Disposition: 00:34
[2018-11-17 00:07] LABS: Calcium 8.2 mg/dL (8.4-10.2); Total Bilirubin 0.5 mg/dL (0.2-1.3); Total Protein 6.8 g/dL (6.3-8.2)
[2018-11-17 00:09] LABS: Potassium 3.1 mmol/L (3.5-5.1)
[2018-11-17] MEDS ORDERED: ONDANSETRON 4 MG/2 ML VIAL IVP PRN (00:34)
[2018-11-17] MEDS ORDERED: NALOXONE 0.4 MG/ML 1 ML VIAL IV PRN (00:34)
[2018-11-17] MEDS ORDERED: ACETAMINOPHEN TAB 325 MG TAB PO PRN (00:34)
[2018-11-17] MEDS ORDERED: POTASSIUM CHLORIDE ER 20 MEQ TAB.ER PO STA (01:50)
[2018-11-17 02:07] LABS: Glucose,Whole Blood 139 mg/dL (75-99)
[2018-11-17] MEDS: SODIUM CHLORIDE 0.9% 1,000 ML IV SCH ×3 (02:29→19:28)
[2018-11-17 04:21] LABS: Prothrombin Time 69.9 sec (9.0-12.0)
[2018-11-17 04:27] LABS: INR 7.2 (<1.2)
[2018-11-17] MEDS ORDERED: PHYTONADIONE 5 MG in SODIUM CHLORIDE 0.9% 50 ML IVPB STA (04:46)
[2018-11-17] MEDS: POTASSIUM CHLORIDE 20 MEQ in WATER FOR INJECTION 1 100ML.BAG IVPB SCH ×2 (05:09→10:00)
[2018-11-17] MEDS ORDERED: INSULIN ASPART 100 UNIT/ML 1 ML 10 ML VIAL SQ SCH (07:30)
[2018-11-17 07:56] LABS: Glucose,Whole Blood 198 mg/dL (75-99)
[2018-11-17 08:48] LABS: Calcium 7.7 mg/dL (8.4-10.2); Magnesium 1.2 mg/dL (1.6-2.3); Potassium 3.7 mmol/L (3.5-5.1)
[2018-11-17 08:50] LABS: Prothrombin Time 86.3 sec (9.0-12.0)
[2018-11-17 08:54] LABS: INR 8.8 (<1.2)
[2018-11-17 09:09] LABS: Basophils # (A) 0.1 k/uL (0-0.2); Basophils % (A) 0 %; Eosinophils # (A) 0.2 k/uL (0-0.7); Eosinophils % (A) 1 %; HCT 33.4 % (34.0-46.0); HGB 11.1 gm/dL (11.4-16.0); Lymphocytes # (A) 0.8 k/uL (1.0-4.8); Lymphocytes % (A) 4 %; MCH 30.6 pg (25.0-35.0); MCHC 33.4 g/dL (31.0-37.0); MCV 91.6 fL (80.0-100.0); Monocytes # (A) 0.3 k/uL (0-1.0); Monocytes % (A) 2 %; Neutrophils # (A) 15.7 k/uL (1.3-7.7); Neutrophils % (A) 92 %; Platelet Count 194 k/uL (150-450); RBC 3.64 m/uL (3.80-5.40); RDW 15.2 % (11.5-15.5)
[2018-11-17] MEDS: PANTOPRAZOLE 40 MG/10 ML VIAL IV SCH (09:56)
--- NOTE | 2018-11-17 10:01 | CONS ---
CONSULTATION REASON FOR CONSULT: Renal failure. HISTORY OF PRESENT ILLNESS: Patient is a 63-year-old female with history of chronic kidney disease NKF stage IV with previous baseline creatinine about 2.6 mg/dL. The patient was admitted to the hospital with complaints of an low blood sugars. She states she was not feeling well and her insulin was being adjusted as outpatient, but her blood sugars continued to drop. She also had some abdominal pain. The patient denied any diarrhea, nausea, vomiting, fever, chills, chest pain, or shortness of breath. She did state that she did not have good oral intake for the past couple of days. Serum creatinine was at 6.32 mg/dL on admission. INR was 7.2, and potassium was 3.1. Currently, patient is maintained on IV fluids. Her blood pressure has been on the lower side with systolic of 109 documented. The patient states she has been voiding. She denied use of any nonsteroidal anti-inflammatory agents. 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 PAST SURGICAL HISTORY: Appendectomy, cholecystectomy, breast biopsy, carpal tunnel surgery, colonoscopy, cardiac catheterization. SOCIAL HISTORY: Negative for smoking, drug abuse or alcohol abuse. MEDICATIONS: Medications at home prior to admission included Lasix, vitamin D, calcitriol, Coumadin, insulin pump, allopurinol, pravastatin. ALLERGIES: INCLUDE AZITHROMYCIN AND AMOXICILLIN, BOTH OF WHICH CAUSE RASH AND HIVES. REVIEW OF SYSTEMS: As per HPI. Other systems negative. PHYSICAL EXAMINATION: Patient is comfortable, awake, alert, oriented x3. She is not in any acute distress. Blood pressure 120/61, heart rate 93 per minute. She is afebrile. Examination of the heart S1, S2. Examination of the lungs bilateral breath sounds are heard. Abdomen is soft, nontender. Examination lower extremity shows no significant edema. GOLF TECHNICIAN exam is grossly intact. The patient is moving all 4 extremities. LABS: Sodium 135, potassium 3.1, chloride 92, BUN 48, serum creatinine 6.32, hemoglobin 11.6 g/dL. UA shows trace protein, calcium oxalate crystals occasionally seen and hyaline casts. ASSESSMENT: 1. Acute kidney injury, acute tubular necrosis. Currently nonoliguric, mostly associated with hypovolemia. I will continue with the aggressive IV hydration. We will repeat labs today. No nephrotoxic agents on board. Avoid hypotension. 2. Coagulopathy associated with Coumadin use. The Coumadin is currently on hold. The patient did get vitamin K. 3. Hypokalemia, status post replacement. 4. Chronic kidney disease stage IV secondary to nephrosclerosis. Baseline creatinine about 2.6-2.4 mg/dL. PLAN: Continue with IV fluids. Check labs today. Hold off on Coumadin. Thank you for this consultation. We will continue to follow the patient with you during her hospitalization. MMODL / IJN: [id number] /
[2018-11-17] MEDS ORDERED: INSPUCOR MISCELLANE PRN (10:32)
[2018-11-17] MEDS ORDERED: INSULIN PUMP ACTIVE INSULIN 1 EACH MISC MISCELLANE PRN (10:32)
[2018-11-17] MEDS ORDERED: INSULIN PUMP BASAL RATES 1 EACH MISC MISCELLANE PRN (10:32)
[2018-11-17] MEDS ORDERED: INSULIN PUMP TARGET GLUCOSE 1 EACH MISC MISCELLANE PRN (10:32)
--- NOTE | 2018-11-17 11:26 | P.HPIM ---
History of Present Illness H&P Date: 11/17/18 Chief Complaint: Hypoglycemia This is a 63-year-old female with a history of diabetes mellitus on insulin pump , history of C Sandra stage IV baseline creatinine 2.6 comes to the ER for above- mentioned complaints. Patient says that she was not feeling well and her sugars were dropping at home the hvac controls technician was adjusting the insulin as an outpatient but the blood sugars still continue to drop so the patient came into the ER for about further evaluation and management. The patient otherwise did not complain of any chest pain or racing heart, she did not complain of any cough or shortness of breath, she said that she's been drinking fluids at home she thinks but she's not been good with her food intake. She does not complain of any nausea vomiting or diarrhea constipation, no tingling numbness of any extremities, no itch no rash. She did not complain of any bleeding from anywhere. ER course-patient's vitals were stable in the ER. Lab work was done which showed WAC 10.3 hemoglobin 11.6 platelets 219 K INR was 7.2 sodium 134 potassium 3.1 BU and 48 creatinine 6.32. Urinalysis showed a lot of hyaline casts hence, squamous epithelial cells. Patient was given vitamin K and was given potassium chloride. She was started on IV fluids and admitted to the hospitalist service for further evaluation and management Review of Systems REVIEW OF SYSTEMS: ENT: No diminished vision or hearing. CARDIOVASCULAR: Mentioned earlier. RESPIRATORY: As mentioned earlier. GI: No nauscea, vomiting or diarrhea. : No dysuria or retention. NERVOUS SYSTEM: No numbness or weakness. ALLERGY/IMMUNOLOGY: No asthma or hay fever. MUSCULOSKELETAL: As mentioned earlier. HEMATOLOGY/ONCOLOGY: No history of anemia. ENDOCRINE: History of diabetes on insulin pump. CONSTITUTIONAL: As mentioned earlier. DERMATOLOGY: Negative. RHEUMATOLOGY: Negative. Past Medical History Past Medical History: Coronary Artery Disease (CAD), Diabetes Mellitus, Deep Vein Thrombosis (DVT), Hyperlipidemia, Hypertension, Pulmonary Embolus (PE), Renal Disease Additional Past Medical History / Comment(s): Vitamin D Deficency, pt has insulin pump, elevated liver enzymes History of Any Multi-Drug Resistant Organisms: None Reported Past Surgical History: Appendectomy, Cholecystectomy Additional Past Surgical History / Comment(s): Breast Biopsy, Carapal tunnel to right hand, Heart Catherization, colonoscopy 08/2014 Past Anesthesia/Blood Transfusion Reactions: No Reported Reaction Past Psychological History: No Psychological Hx Reported Smoking Status: Never smoker Past Alcohol Use History: Occasional Past Drug Use History: None Reported - Past Family History Mother Family Medical History: No Reported History Additional Family Medical History / Comment(s): heart disease Father Additional Family Medical History / Comment(s): heart disease Medications and Allergies Home Medications Medication Instructions Recorded Confirmed Type Furosemide [Lasix] 40 mg PO DAILY 04/08/16 11/16/18 History Ergocalciferol (Vitamin D2) 50,000 unit PO SA 07/13/16 11/16/18 History [Drisdol] Calcitriol 0.5 mcg PO MOTUWETHFR 07/19/17 11/16/18 History Warfarin Sodium 6 mg PO MOWEFRSA 12/02/17 11/16/18 History Insulin Aspart (For Pump) [NovoLOG 0.01 unit SQ-PUMP CONTINUOUS 05/13/18 History (For Pump)] Warfarin [Coumadin] 4 mg PO SUTUTH 05/13/18 11/16/18 History Allopurinol [Zyloprim] 100 mg PO DAILY 11/16/18 11/16/18 History Cyanocobalamin (Vitamin B-12) 500 mcg PO DAILY 11/16/18 11/16/18 History [Vitamin B-12] Pravastatin Sodium [Pravachol] 40 mg PO HS 11/16/18 11/16/18 History Allergies Allergy/AdvReac Type Severity Reaction Status Date / Time azithromycin Allergy Unknown Rash/Hives Verified 11/16/18 22:30 amoxicillin Allergy Rash/Hives Verified 11/16/18 22:30 Physical Exam Vitals: Vital Signs Temp Pulse Pulse Resp BP BP Pulse Ox 11/17/18 07:00 98.4 F 93 14 120/61 98 11/17/18 05:25 98.2 F 80 16 115/62 93 L 11/17/18 05:00 97.8 F 72 16 109/63 93 L 11/17/18 04:17 16 11/17/18 01:49 98.1 F 84 20 132/61 95 11/17/18 00:30 98.0 F 81 18 129/49 95 11/16/18 21:46 97.9 F 60 20 125/63 93 L Intake and Output 11/16/18 11/17/18 11/17/18 22:59 06:59 14:59 Intake Total 530 222 Balance 530 222 Intake: Intake, IV Titration 280 Amount Sodium Chloride 0.9% 1, 280 000 ml @ 150 mls/hr IV . Q6H40M [facility] Rx#:[id number] Oral 250 222 Other: Voiding Method Toilet # Voids 1 Weight 108.862 kg 109.3 kg On exam, alert and oriented x3. HEENT: Conjunctivae normal. eyes normal. NECK: No JVD. No thyroid enlargement. No LNs CARDIOVASCULAR: S1, S2 muffled. No murmur RESPIRATION: Breath sounds diminished in the bases. No rhonchi or crackles. No bronchial breathing. ABDOMEN: Soft, nontender . No guarding. no masses palpable. No ascites, No hepatosplenomegaly.Bowel sounds heard. LEGS: No edema. no swelling NERVOUS SYSTEM: Cranial N 2-12 grossly normal. Moves all 4 limbs. No focal deficits. No sensory deficit. No signs of cerebellar dysfucntion. Skin: no ulcer no rash Joints: No active swelling. No inflammation. Lymphatic system. No LN neck axilla or groin. Results CBC & Chem 7: 11/17/18 06:56 11/17/18 06:56 Labs: Abnormal Lab Results - Last 24 Hours (Table) 11/16/18 11/16/18 11/16/18 Range/Units 21:53 22:46 22:46 WBC (3.8-10.6) k/uL RBC (3.80-5.40) m/uL Hgb (11.4-16.0) gm/dL Hct (34.0-46.0) % Neutrophils # 8.3 H (1.3-7.7) k/uL Lymphocytes # 0.9 L (1.0-4.8) k/uL PT (9.0-12.0) sec INR (<1.2) Sodium 135 L (137-145) mmol/L Potassium 3.1 L (3.5-5.1) mmol/L Chloride 92 L (98-107) mmol/L BUN 48 H (7-17) mg/dL Creatinine 6.32 H (0.52-1.04) mg/dL Glucose 131 H (74-99) mg/dL POC Glucose (mg/dL) 123 H (75-99) mg/dL Calcium 8.2 L (8.4-10.2) mg/dL Magnesium (1.6-2.3) mg/dL AST 43 H (14-36) U/L Lipase 20 L (23-300) U/L Urine Appearance (Clear) Urine Protein (Negative) Ur Squamous Epith Cells (0-4) /hpf Calcium Oxalate Crystal (None) /hpf Urine Bacteria (None) /hpf Hyaline Casts (0-2) /lpf Urine Mucus (None) /hpf 11/16/18 11/16/18 11/17/18 Range/Units 22:46 22:58 02:05 WBC (3.8-10.6) k/uL RBC (3.80-5.40) m/uL Hgb (11.4-16.0) gm/dL Hct (34.0-46.0) % Neutrophils # (1.3-7.7) k/uL Lymphocytes # (1.0-4.8) k/uL PT 69.9 H (9.0-12.0) sec INR 7.2 H* (<1.2) Sodium (137-145) mmol/L Potassium (3.5-5.1) mmol/L Chloride (98-107) mmol/L BUN (7-17) mg/dL Creatinine (0.52-1.04) mg/dL Glucose (74-99) mg/dL POC Glucose (mg/dL) 139 H (75-99) mg/dL Calcium (8.4-10.2) mg/dL Magnesium (1.6-2.3) mg/dL AST (14-36) U/L Lipase (23-300) U/L Urine Appearance Cloudy H (Clear) Urine Protein Trace H (Negative) Ur Squamous Epith Cells 17 H (0-4) /hpf Calcium Oxalate Crystal Occasional H (None) /hpf Urine Bacteria Occasional H (None) /hpf Hyaline Casts 10 H (0-2) /lpf Urine Mucus Occasional H (None) /hpf 11/17/18 11/17/18 11/17/18 Range/Units 06:56 06:56 06:56 WBC 17.0 H (3.8-10.6) k/uL RBC 3.64 L (3.80-5.40) m/uL Hgb 11.1 L (11.4-16.0) gm/dL Hct 33.4 L (34.0-46.0) % Neutrophils # 15.7 H (1.3-7.7) k/uL Lymphocytes # 0.8 L (1.0-4.8) k/uL PT 86.3 H (9.0-12.0) sec INR 8.8 H* (<1.2) Sodium 135 L (137-145) mmol/L Potassium (3.5-5.1) mmol/L Chloride 95 L (98-107) mmol/L BUN 46 H (7-17) mg/dL Creatinine 6.27 H (0.52-1.04) mg/dL Glucose 174 H (74-99) mg/dL POC Glucose (mg/dL) (75-99) mg/dL Calcium 7.7 L (8.4-10.2) mg/dL Magnesium 1.2 L (1.6-2.3) mg/dL AST (14-36) U/L Lipase (23-300) U/L Urine Appearance (Clear) Urine Protein (Negative) Ur Squamous Epith Cells (0-4) /hpf Calcium Oxalate Crystal (None) /hpf Urine Bacteria (None) /hpf Hyaline Casts (0-2) /lpf Urine Mucus (None) /hpf 11/17/18 Range/Units 07:45 WBC (3.8-10.6) k/uL RBC (3.80-5.40) m/uL Hgb (11.4-16.0) gm/dL Hct (34.0-46.0) % Neutrophils # (1.3-7.7) k/uL Lymphocytes # (1.0-4.8) k/uL PT (9.0-12.0) sec INR (<1.2) Sodium (137-145) mmol/L Potassium (3.5-5.1) mmol/L Chloride (98-107) mmol/L BUN (7-17) mg/dL Creatinine (0.52-1.04) mg/dL Glucose (74-99) mg/dL POC Glucose (mg/dL) 198 H (75-99) mg/dL Calcium (8.4-10.2) mg/dL Magnesium (1.6-2.3) mg/dL AST (14-36) U/L Lipase (23-300) U/L Urine Appearance (Clear) Urine Protein (Negative) Ur Squamous Epith Cells (0-4) /hpf Calcium Oxalate Crystal (None) /hpf Urine Bacteria (None) /hpf Hyaline Casts (0-2) /lpf Urine Mucus (None) /hpf Microbiology - Last 24 Hours (Table) 11/16/18 22:58 Urine Culture - Preliminary Urine,Voided Thrombosis Risk Factor Assmnt - Choose All That Apply Any of the Below Risk Factors Present?: Yes Each Factor Represents 1 point: Obesity (BMI >25) Other Risk Factors: Yes Each Risk Factor Represents 2 Points: Age 61-74 years Each Risk Factor Represents 3 Points: History of DVT/PE Thrombosis Risk Factor Assessment Total Risk Factor Score: 6 Thrombosis Risk Factor Assessment Level: High Risk Assessment and Plan Assessment: - KATHLEEN on CK D stage IV - Supratherapeutic INR - Hypoglycemia - Hypomagnesemia - Hypokalemiapotassium levels normal now - History of DVT and PE on Coumadin - History of CAD - History of diabetes mellitus on insulin pump managed by [place] Dr Benito as outpatient Plan: - We'll admit the patient to [facility] - We'll continue IV fluids as per nephrology recommendations - Patient initially was hypoglycemic. Blood sugars are under control as of now. We will continue the insulin pump if the patient's blood sugar drops again we'll DC the insulin pump and managed on sliding scale insulin - Patient was given vitamin K in the ER. Patient has no episodes of bleeding from anywhere. We will continue to hold the Coumadin and check INR in the evening and in the morning again. If the patient's INR continues to rise or if the patient starts to have bleeding episodes, then we will consider FFP's and vitamin K - We will resume rest of the patient's home medications - GI prophylaxis and Prilosec - We'll also order for laboratory the morning - Expected length of stay is more than 2 midnights - Patient wants to be full code Time with Patient: Greater than 30
[2018-11-17 12:00] LABS: Glucose,Whole Blood 213 mg/dL (75-99)
--- NOTE | 2018-11-17 12:32 | ECHOF ---
Referral Reason:lv fx MEASUREMENTS -------- HEIGHT: 167.6 cm WEIGHT: 108.9 kg BP: 115/62 RVIDd: 2.2 cm (< 3.3) IVSd: 1.6 cm (0.6 - 1.1) LVIDd: 3.6 cm (3.9 - 5.3) LVPWd: 1.6 cm (0.6 - 1.1) IVSs: 1.6 cm LVIDs: 1.9 cm LVPWs: 1.8 cm Ao Diam: 3.0 cm (2.0 - 3.7) AV Cusp: 1.9 cm (1.5 - 2.6) LA Diam: 3.8 cm (2.7 - 3.8) MV EXCURSION: 11.800 mm (> 18.000) MV EF SLOPE: 68 mm/s (70 - 150) EPSS: 0.7 cm MV E Cm: 0.85 m/s MV DecT: 239 ms MV A Cm: 0.95 m/s MV E/A Ratio: 0.89 AV maxP.40 mmHg AV meanP.75 mmHg RAP: 5.00 mmHg RVSP: 32.23 mmHg FINDINGS -------- Sinus rhythm. This was a technically difficult study with suboptimal views. The left ventricular size is normal. There is moderate concentric left ventricular hypertrophy. O verall left ventricular systolic function is normal with, an EF between 55 - 60 %. The right ventricle is normal in size and function. The left atrium is normal in size. The right atrium is normal in size. Lumason used The aortic valve was not well visualized. Peak/mean gradient across the Aortic Valve is 26.40mmHg / 13.75mmHg. The mitral valve leaflets are mildly thickened. Mild mitral regurgitation is present. Mild tricuspid regurgitation present. The right ventricular systolic pressure, as measured by Doppl er, is 32.23mmHg. Pulmonic valve appears structurally normal. The aortic root size is normal. The pericardium is normal. CONCLUSIONS -------- 1. Sinus rhythm. 2. This was a technically difficult study with suboptimal views. 3. The left ventricular size is normal. 4. There is moderate concentric left ventricular hypertrophy. 5. Overall left ventricular systolic function is normal with, an EF between 55 - 60 %. 6. The right ventricle is normal in size and function. 7. The left atrium is normal in size. 8. The right atrium is normal in size. 9. Lumason used 10. The aortic valve was not well visualized. 11. Peak/mean gradient across the Aortic Valve is 26.40mmHg / 13.75mmHg. 12. Possible mild aortic stenosis. Can not see valve but does have a gradient. 13. The mitral valve leaflets are mildly thickened. 14. Mild mitral regurgitation is present. 15. Mild tricuspid regurgitation present. 16. The right ventricular systolic pressure, as measured by Doppler, is 32.23mmHg. 17. Pulmonic valve appears structurally normal. 18. The aortic root size is normal. 19. The pericardium is normal. LIVE STUDY MANAGER: Shani Arellano RDCS
[2018-11-17] MEDS: INSULIN PUMP MEAL BOLUS 1 UNIT MISC MISCELLANE SCH ×3 (12:33→20:19)
--- NOTE | 2018-11-17 14:28 | US ---
EXAMINATION TYPE: US kidneys/renal and bladder DATE OF EXAM: 11/17/2018 COMPARISON: 11/19/2017 CLINICAL HISTORY: Renal failure. EXAM MEASUREMENTS: Right Kidney: 7.9 x 4.2 x 4.1 cm Left Kidney: 6.7 x 3.8 x 4.4 cm Right Kidney: atrophied, hypoechoic area seen previously, 1.2 x 1.0 x 1.0cm Left Kidney: atrophied, hypoechoic nodule measuring 1.4 x 1.5 x 1.5cm Bladder: wnl No hydronephrosis or nephrolithiasis. IMPRESSION: 1. The kidneys are somewhat atrophic with increased renal cortical echotexture. Correlate for chronic medical renal disease. 2. Hypoechoic nodules involving the bilateral kidney does not meet the criteria of a simple cyst. Pre vious CT scans are noncontrast and limited in assessment. Findings are nonspecific. Neoplastic proces s not excluded. 3. No hydronephrosis or nephrolithiasis
[2018-11-17 16:51] LABS: Glucose,Whole Blood 196 mg/dL (75-99)
[2018-11-17 18:57] LABS: INR 2.8 (<1.2); Prothrombin Time 27.1 sec (9.0-12.0)
[2018-11-17 20:20] LABS: Glucose,Whole Blood 167 mg/dL (75-99)
[2018-11-18 02:27] LABS: Glucose,Whole Blood 101 mg/dL (75-99)
[2018-11-18] MEDS: SODIUM CHLORIDE 0.9% 1,000 ML IV SCH ×4 (03:00→20:31)
[2018-11-18 07:20] LABS: Basophils % (A) 0 %; Eosinophils # (A) 0.1 k/uL (0-0.7); Eosinophils % (A) 1 %; HCT 31.9 % (34.0-46.0); HGB 10.4 gm/dL (11.4-16.0); Lymphocytes # (A) 1.1 k/uL (1.0-4.8); Lymphocytes % (A) 8 %; MCH 29.9 pg (25.0-35.0); MCHC 32.4 g/dL (31.0-37.0); MCV 92.2 fL (80.0-100.0); Mean Platelet Volume 8.5; Monocytes # (A) 0.7 k/uL (0-1.0); Monocytes % (A) 5 %; Neutrophils # (A) 11.5 k/uL (1.3-7.7); Neutrophils % (A) 84 %; Platelet Count 204 k/uL (150-450); RBC 3.46 m/uL (3.80-5.40); RDW 15.3 % (11.5-15.5); WBC 13.7 k/uL (3.8-10.6)
[2018-11-18 07:25] LABS: INR 1.9 (<1.2); Prothrombin Time 18.5 sec (9.0-12.0)
[2018-11-18 07:29] LABS: Glucose,Whole Blood 117 mg/dL (75-99)
[2018-11-18 07:33] LABS: Calcium 7.7 mg/dL (8.4-10.2); Potassium 3.5 mmol/L (3.5-5.1)
[2018-11-18] MEDS: PANTOPRAZOLE 40 MG/10 ML VIAL IV SCH (08:37)
[2018-11-18] MEDS: INSULIN PUMP MEAL BOLUS 1 UNIT MISC MISCELLANE SCH ×4 (08:38→20:58)
[2018-11-18 11:51] LABS: Glucose,Whole Blood 96 mg/dL (75-99)
[2018-11-18 17:10] LABS: Glucose,Whole Blood 170 mg/dL (75-99)
[2018-11-18] MEDS ORDERED: Insulin Aspart (For Pump) 100 UNIT/ML VIAL SQ-PUMP SCH (17:30)
--- NOTE | 2018-11-18 18:52 | PN ---
PROGRESS NOTE Patient is seen for followup for acute kidney injury. She is maintained on IV fluids. This morning patient been confused on and off. She states she will be needing a D and C, and the patient also states that she was told she will need dialysis. However, I discussed with nursing staff and the patient has had episodes of confusion and hallucinations. She is maintained on IV fluids. Renal function is better. Patient has had good urine output. PHYSICAL EXAMINATION: This morning, blood pressure was 160/48, heart rate 86 per minute. She is afebrile. Examination of the heart S1, S2. Examination of the lungs bilateral breath sounds are heard. Abdomen is soft, nontender, and obese. Examination of lower extremities shows no evidence of edema. SUBSCRIPTION CLERK exam is grossly intact. However, patient has been confused. LAB: Show sodium 142, potassium 3.5, BUN 36, serum creatinine 4.82, hemoglobin 10.4 g/dL. ASSESSMENT: 1. Acute kidney injury, prerenal, currently improved with IV hydration. I will continue with the IV fluids for now. Repeat labs in a.m. and continue to avoid any nephrotoxic medications. 2. 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 3. Chronic kidney disease stage IV secondary to the nephrosclerosis. Baseline creatinine 2.6-2.4 mg/dL. 4. Coagulopathy associated with use of Coumadin, status post vitamin K. No active bleeding noted at this time. PLAN: Continue IV fluids. Repeat labs in a.m. MMODL / IJN: [id number] /
[2018-11-18] MEDS: CALCITRIOL 0.25 MCG CAP PO SCH (20:30)
[2018-11-18] MEDS: PRAVASTATIN SODIUM 40 MG TAB PO SCH (20:31)
[2018-11-18] MEDS: WARFARIN 3 MG TAB PO SCH (20:31)
[2018-11-18 20:36] LABS: Glucose,Whole Blood 236 mg/dL (75-99)
[2018-11-19] MEDS: SODIUM CHLORIDE 0.9% 1,000 ML IV SCH ×4 (02:06→21:34)
[2018-11-19 02:13] LABS: Glucose,Whole Blood 141 mg/dL (75-99)
[2018-11-19 06:58] LABS: Glucose,Whole Blood 91 mg/dL (75-99)
[2018-11-19 07:08] LABS: HCT 30.9 % (34.0-46.0); HGB 10.2 gm/dL (11.4-16.0); MCHC 32.9 g/dL (31.0-37.0); Platelet Count 213 k/uL (150-450); RBC 3.28 m/uL (3.80-5.40); RDW 15.4 % (11.5-15.5); WBC 10.3 k/uL (3.8-10.6)
[2018-11-19 07:12] LABS: INR 1.4 (<1.2); Prothrombin Time 14.5 sec (9.0-12.0)
[2018-11-19 07:27] LABS: Calcium 7.9 mg/dL (8.4-10.2); Potassium 3.9 mmol/L (3.5-5.1)
[2018-11-19] MEDS: INSULIN PUMP MEAL BOLUS 1 UNIT MISC MISCELLANE SCH ×4 (07:56→21:12)
[2018-11-19] MEDS: ALLOPURINOL 100 MG TAB PO SCH (08:34)
[2018-11-19] MEDS: PANTOPRAZOLE 40 MG/10 ML VIAL IV SCH (08:34)
--- NOTE | 2018-11-19 11:44 | PN ---
PROGRESS NOTE The patient is seen for followup for acute kidney injury, which appears to be mainly prerenal. Her renal function continues to improve. Serum creatinine is down to 3.7. Patient is maintained on IV fluids. She has been confused and currently has a sitter with her. PHYSICAL EXAMINATION: This morning, blood pressure was 129/63, heart rate 74 per minute. She is afebrile. Examination of the heart S1, S2. Examination of the lungs bilateral breath sounds are heard. Abdomen is soft, obese, nontender. Examination lower extremities show no significant edema. LABS: Show sodium 142, potassium 3.9, BUN 35, serum creatinine 2.74, hemoglobin 10.2 g/dL. ASSESSMENT: 1. Acute kidney injury, prerenal, currently improving with IV fluids. 2. Chronic kidney disease NKF stage IV with baseline creatinine around 2.6-2.4 mg/dL. 3. Coagulopathy associated with use of Coumadin, currently improved. Patient received vitamin K on initial admission. 4. 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 5. Confusion seems to have improved today. PLAN: Continue IV fluids. Repeat labs in a.m. Avoid nephrotoxic agents. MMODL / IJN: [id number] /
[2018-11-19 13:19] LABS: Glucose,Whole Blood 133 mg/dL (75-99)
--- NOTE | 2018-11-19 14:47 | P.PN ---
Subjective Progress Note Date: 11/19/18 Patient admitted for hypoglycemia and acute on chronic renal failure. She was also having supratherapeutic INR 11/19/2018 Patient kidney functions continued to improve Her blood pressure and blood sugars also remained stable She does not complain of any chest pain or racing heart, no cough or shortness of breath, no abdominal pain, no nausea and vomiting, no diarrhea constipation. Objective - Vital Signs Vital signs: Vital Signs Temp 98.6 F 11/19/18 07:04 Pulse 74 11/19/18 07:04 Resp 18 11/19/18 07:04 BP 129/63 11/19/18 07:04 Pulse Ox 93 L 11/19/18 07:04 Intake & Output 11/18/18 11/19/18 11/19/18 18:59 06:59 18:59 Intake Total 1170 2040 Balance 1170 2040 Intake: Intake, IV Titration 1000 1500 Amount Sodium Chloride 0.9% 1, 1000 1500 000 ml @ 150 mls/hr IV . Q6H40M [facility] Rx#:[id number] Oral 170 540 Other: Voiding Method Toilet # Voids 3 4 - Exam On exam, alert and oriented x3. HEENT: Conjunctivae normal. eyes normal. NECK: No JVD. No thyroid enlargement. No LNs CARDIOVASCULAR: S1-S2 heard RESPIRATION: Breath sounds diminished in the bases. No rhonchi or crackles. No bronchial breathing. ABDOMEN: Soft, nontender . No guarding. no masses palpable. No ascites, No hepatosplenomegaly.Bowel sounds heard. LEGS: No edema. no swelling NERVOUS SYSTEM: Cranial N 2-12 grossly normal. Moves all 4 limbs. No focal deficits. No sensory deficit. No signs of cerebellar dysfucntion. Skin: no ulcer no rash Joints: No active swelling. No inflammation. Lymphatic system. No LN neck axilla or groin. - Labs CBC & Chem 7: 11/19/18 06:47 11/19/18 06:47 Labs: Abnormal Lab Results - Last 24 Hours (Table) 11/18/18 11/18/18 11/19/18 Range/Units 16:58 20:25 02:02 RBC (3.80-5.40) m/uL Hgb (11.4-16.0) gm/dL Hct (34.0-46.0) % PT (9.0-12.0) sec INR (<1.2) BUN (7-17) mg/dL Creatinine (0.52-1.04) mg/dL POC Glucose (mg/dL) 170 H 236 H 141 H (75-99) mg/dL Calcium (8.4-10.2) mg/dL 11/19/18 11/19/18 11/19/18 Range/Units 06:47 06:47 06:47 RBC 3.28 L (3.80-5.40) m/uL Hgb 10.2 L (11.4-16.0) gm/dL Hct 30.9 L (34.0-46.0) % PT 14.5 H (9.0-12.0) sec INR 1.4 H (<1.2) BUN 35 H (7-17) mg/dL Creatinine 3.74 H (0.52-1.04) mg/dL POC Glucose (mg/dL) (75-99) mg/dL Calcium 7.9 L (8.4-10.2) mg/dL 11/19/18 Range/Units 13:07 RBC (3.80-5.40) m/uL Hgb (11.4-16.0) gm/dL Hct (34.0-46.0) % PT (9.0-12.0) sec INR (<1.2) BUN (7-17) mg/dL Creatinine (0.52-1.04) mg/dL POC Glucose (mg/dL) 133 H (75-99) mg/dL Calcium (8.4-10.2) mg/dL Microbiology - Last 24 Hours (Table) 11/16/18 22:58 Urine Culture - Final Urine,Voided Assessment and Plan Assessment: - KATHLEEN on CK D stage IV - Supratherapeutic INR - Hypoglycemia - Hypomagnesemia - Hypokalemiapotassium levels normal now - History of DVT and PE on Coumadin - History of CAD - History of diabetes mellitus on insulin pump [facility] as outpatient Plan: - Patient's kidney functions improving - Continue IV fluids as per nephro recommendations - Patient's INR improved and is in fact subtherapeutic right now. We'll continue Coumadin - Continue rest of home medications - We'll continue to follow
[2018-11-19 17:02] LABS: Glucose,Whole Blood 173 mg/dL (75-99)
[2018-11-19] MEDS: WARFARIN 3 MG TAB PO SCH (17:42)
--- NOTE | 2018-11-19 18:27 | P.CN ---
Psychiatric Consult - . Consult date: 11/19/18 Consult:: 11/19/18 18:18 Ms. Calderon is 63 yo single female with h/o depression and multiple medical problems admitted here secondary to diabetes complication and infection. In ER she voiced suicidal ideation. Psychiatry was consulted to rule out suicidal ideation. Found her anxious and hyper. Now denies any suicidal ideation. Reports getting very stressed out due to her brother. She states that her brother makes her stressed out. She gets frustrated and she made that comment out of anger and she did not mean it. She has never been suicidal in past. According to staff she has been seeing her brother and having conversation with him. Denies having any symptoms of psychoses. PPH : Depression PMH : see HPI Current Psych medications : None MSE : She is alert, awake, oriented in all spheres. Irritable and alvarez. Fauir eye contact. Speech loud and pressured. Mood irritable and angry with congruent affect. Denies any suicidal or homicidal ideation. Paranoid delusional. Has some auditory/Visual hallucinations. Insight and judgment impaired. A/P : Delirium, Resolving Major Depression with Psychotic Features Plan : Will keep 1:1 sitter for safety and unpredictable behavior. Will start low dose of remeron 15 mg po qhs and Seroquel 25 mg po BID. Psychiatry will Follow
[2018-11-19 20:30] LABS: Glucose,Whole Blood 191 mg/dL (75-99)
[2018-11-19] MEDS: MIRTAZAPINE 15 MG TAB PO SCH (21:13)
[2018-11-19] MEDS: PRAVASTATIN SODIUM 40 MG TAB PO SCH (21:13)
[2018-11-19] MEDS: QUEtiapine 25 MG TAB PO SCH (21:13)
[2018-11-20 02:31] LABS: Glucose,Whole Blood 93 mg/dL (75-99)
[2018-11-20] MEDS: SODIUM CHLORIDE 0.9% 1,000 ML IV SCH ×3 (03:47→20:13)
[2018-11-20 06:49] LABS: Glucose,Whole Blood 73 mg/dL (75-99)
[2018-11-20 07:18] LABS: INR 1.6 (<1.2); Prothrombin Time 15.7 sec (9.0-12.0)
[2018-11-20] MEDS: PANTOPRAZOLE 40 MG TABLET PO SCH (09:39)
[2018-11-20] MEDS: QUEtiapine 25 MG TAB PO SCH ×2 (09:39→20:51)
[2018-11-20] MEDS: ALLOPURINOL 100 MG TAB PO SCH (09:39)
[2018-11-20] MEDS: INSULIN PUMP MEAL BOLUS 1 UNIT MISC MISCELLANE SCH ×2 (09:40→12:10)
[2018-11-20 11:22] LABS: Calcium 8.4 mg/dL (8.4-10.2); Potassium 3.8 mmol/L (3.5-5.1)
[2018-11-20 12:09] LABS: Glucose,Whole Blood 56 mg/dL (75-99)
[2018-11-20 12:23] LABS: Glucose,Whole Blood 64 mg/dL (75-99)
[2018-11-20 12:41] LABS: Glucose,Whole Blood 79 mg/dL (75-99)
[2018-11-20 15:02] LABS: Glucose,Whole Blood 113 mg/dL (75-99)
[2018-11-20 16:53] LABS: Glucose,Whole Blood 149 mg/dL (75-99)
[2018-11-20] MEDS: ENOXAPARIN 100 MG/ML SYRINGE SQ SCH (17:13)
[2018-11-20] MEDS ORDERED: WARFARIN 2 MG TAB PO SCH (18:00)
[2018-11-20] MEDS: INSULIN ASPART 100 UNIT/ML 1 ML 10 ML VIAL SQ SCH ×2 (18:02→20:51)
[2018-11-20 20:34] LABS: Glucose,Whole Blood 182 mg/dL (75-99)
[2018-11-20] MEDS: PRAVASTATIN SODIUM 40 MG TAB PO SCH (20:51)
[2018-11-20] MEDS: MIRTAZAPINE 15 MG TAB PO SCH (20:51)
--- NOTE | 2018-11-20 23:19 | PN ---
PROGRESS NOTE Patient is seen for followup for acute kidney injury on top of chronic kidney disease, which is mainly prerenal. Patient is maintained on IV fluids. Her creatinine has decreased down to 2.9 from 6.3 on initial admission. Patient remains on IV fluids. She has been confused and currently requiring a sitter. PHYSICAL EXAMINATION: This morning blood pressure was 137/68, heart rate 77 per minute. She is afebrile. Examination of the heart S1, S2. Examination lungs bilateral breath sounds are heard. Abdomen is soft, nontender. Examination lower extremities shows no evidence of edema. STEAM FITTER SUPERVISOR exam is grossly intact. LABS: Show sodium 142, potassium 3.8, BUN 27, serum creatinine 2.93, calcium 8.4. ASSESSMENT: 1. Acute kidney injury, prerenal, slowly improving. Continue with IV fluids. Possible discharge tomorrow from Nephrology standpoint. 2. Chronic kidney disease and KF stage IV with baseline creatinine about 2.4-2.6 mg/dL secondary to nephrosclerosis. 3. CKD mineral bone disorder maintained on Rocaltrol. 4. Hallucination and confusion, currently being seen by Psychiatry. MMODL / IJN: [id number] /
[2018-11-21] MEDS: SODIUM CHLORIDE 0.9% 1,000 ML IV SCH ×2 (00:08→08:20)
[2018-11-21 00:38] LABS: Glucose,Whole Blood 102 mg/dL (75-99)
[2018-11-21 02:15] LABS: Glucose,Whole Blood 135 mg/dL (75-99)
--- NOTE | 2018-11-21 07:10 | P.PN ---
Subjective This is a 63-year-old female with a history of diabetes mellitus on insulin pump , history of Chronic kidney stage IV baseline creatinine 2.6 comes to the ER for hypoglycemia. Patient says that she was not feeling well and her sugars were dropping at home the financial reporting accountant was adjusting the insulin as an outpatient but the blood sugars still continue to drop so the patient came into the ER for about further evaluation and management. The patient otherwise did not complain of any chest pain or racing heart, she did not complain of any cough or shortness of breath, she said that she's been drinking fluids at home she thinks but she's not been good with her food intake. She does not complain of any nausea vomiting or diarrhea constipation, no tingling numbness of any extremities, no itch no rash. She did not complain of any bleeding from anywhere. ER course-patient's vitals were stable in the ER. Lab work was done which showed WAC 10.3 hemoglobin 11.6 platelets 219 K INR was 7.2 sodium 134 potassium 3.1 BU and 48 creatinine 6.32. Urinalysis showed a lot of hyaline casts hence, squamous epithelial cells. Patient was given vitamin K and was given potassium chloride. She was started on IV fluids and admitted to the hospitalist service for further evaluation and management 11/20/2018 Patient is seen and examined by me at bedside. She was lying in bed, not in distress. Sitter was at bedside. Patient presents with suicidal ideation and she's been evaluated by psychiatrist. When I saw the patient she was talking about family members standing by the door when actually nobody was there , most likely patient has visual hallucination. Patient denies chest pain, no dyspnea. No abdominal pain or nausea vomiting. No change in urine or bowel habits as per patient no fever. Her creatinine is trending down while on IV fluids and agitator operator following the patient. Patient is on insulin pump, she self administered but looks like the patient is disoriented and she is been hypoglycemic this morning about 56-64, sugar currently 79. I think it is safer for the patient to stop with the insulin pump and put her on insulin sliding scale and I discussed with bed side nurse about this. INR today is 1.6 , she is taking Coumadin was restarted. Probably will need some bridging until INR is 2 target 2-3. Patient telling me she has history of pulmonary embolism in 2014. CBC and BMP were reviewed. CONSTITUTIONAL: No fever, no malaise, no fatigue. HEENT: No recent visual problems or hearing problems. Denied any sore throat. CARDIOVASCULAR: No orthopnea, PND, no palpitations, no syncope. PULMONARY: No shortness of breath, no cough, no hemoptysis. GASTROINTESTINAL: No diarrhea, no nausea, no vomiting, no abdominal pain. Normoactive bowel sounds. NEUROLOGICAL: No headaches, no weakness, no numbness. HEMATOLOGICAL: Denies any bleeding or petechiae. GENITOURINARY: Denies any burning micturition, frequency, or urgency. MUSCULOSKELETAL/RHEUMATOLOGICAL: Denies any joint pain, swelling, or any muscle pain. ENDOCRINE: Denies any polyuria or polydipsia. Medications reviewed and include Tylenol, allopurinol, calcitriol, Remeron, insulin, Zofran, Protonix, pravastatin, Seroquel, and Coumadin Objective - Vital Signs Vital signs: Vital Signs Temp 98.1 F 11/20/18 07:09 Pulse 77 11/20/18 07:09 Resp 16 11/20/18 07:09 BP 137/68 11/20/18 07:09 Pulse Ox 94 L 11/20/18 07:09 Intake & Output 11/19/18 11/20/18 11/20/18 18:59 06:59 18:59 Intake Total 1500 Balance 1500 Intake: Intake, IV Titration 1500 Amount Sodium Chloride 0.9% 1, 1500 000 ml @ 150 mls/hr IV . Q6H40M [facility] Rx#:[id number] Other: Voiding Method Toilet Toilet Toilet # Voids 3 1 - Exam GENERAL: The patient is alert and oriented x3, not in any acute distress. Well developed, well nourished. HEENT: Pupils are round and equally reacting to light. EOMI. No scleral icterus. No conjunctival pallor. Normocephalic, atraumatic. No pharyngeal erythema. No thyromegaly. CARDIOVASCULAR: S1 and S2 present. No murmurs, rubs, or gallops. PULMONARY: Chest is clear to auscultation, no wheezing or crackles. ABDOMEN: Soft, nontender, nondistended, normoactive bowel sounds. No palpable organomegaly. MUSCULOSKELETAL: No joint swelling or deformity. EXTREMITIES: No cyanosis, clubbing, or pedal edema. NEUROLOGICAL: Gross neurological examination did not reveal any focal deficits. SKIN: No rashes. - Labs CBC & Chem 7: 11/19/18 06:47 11/20/18 06:21 Labs: Abnormal Lab Results - Last 24 Hours (Table) 11/19/18 11/19/18 11/20/18 Range/Units 16:51 20:28 06:21 PT 15.7 H (9.0-12.0) sec INR 1.6 H (<1.2) Chloride (98-107) mmol/L BUN (7-17) mg/dL Creatinine (0.52-1.04) mg/dL POC Glucose (mg/dL) 173 H 191 H (75-99) mg/dL 11/20/18 11/20/18 11/20/18 Range/Units 06:21 06:38 11:51 PT (9.0-12.0) sec INR (<1.2) Chloride 110 H (98-107) mmol/L BUN 27 H (7-17) mg/dL Creatinine 2.93 H (0.52-1.04) mg/dL POC Glucose (mg/dL) 73 L 56 L (75-99) mg/dL 11/20/18 Range/Units 12:11 PT (9.0-12.0) sec INR (<1.2) Chloride (98-107) mmol/L BUN (7-17) mg/dL Creatinine (0.52-1.04) mg/dL POC Glucose (mg/dL) 64 L (75-99) mg/dL Assessment and Plan Assessment: - KATHLEEN on CK D stage IV - dehydration on iv fluid - History of PE on Coumadin as per patient - Supratherapeutic INR, corrected to subtherapeutic. Restart Coumadin with Lovenox bridging. - Hypoglycemia, while on insulin pump. Hold insulin pump and start insulin sliding scale - Hypomagnesemia - Hypokalemiapotassium levels normal now - History of DVT and PE on Coumadin - History of CAD - History of diabetes mellitus on insulin pump [facility] outpatient Plan: This is a pleasant 63 years old female who presents with acute kidney injury and hypoglycemia and dehydration. Nephrology following the patient, continue with IV fluids. We'll stop the insulin pump as patient has difficulty managing it due to her mental status and put her on insulin sliding scale. Psychiatric evaluation is appreciated and he recommends to keep the sitter at bedside. She was evaluated the patient and there is a sitter at bedside. continue with coumadin with bridging therapy with lovenox til INR is therapeutic at 2-3 then stop lovenox. replace Magnesium and f/u level. Labs and medication were reviewed.. Continue same treatment. Continue with symptomatic treatment. Resume home medication. Monitor lytes and vitals. DVT and GI prophylaxis. Further recommendations of the clinical course of the patient DVT prophylaxis: On Coumadin GI Prophylaxis: Protonix Prognosis is guarded
[2018-11-21 07:24] LABS: Glucose,Whole Blood 145 mg/dL (75-99)
[2018-11-21 07:43] LABS: Basophils % (A) 1 %; Eosinophils # (A) 0.4 k/uL (0-0.7); Eosinophils % (A) 5 %; HCT 32.8 % (34.0-46.0); HGB 10.6 gm/dL (11.4-16.0); Hypochromasia Slight; Lymphocytes # (A) 1.9 k/uL (1.0-4.8); Lymphocytes % (A) 27 %; MCHC 32.3 g/dL (31.0-37.0); MCV 95.8 fL (80.0-100.0); Mean Platelet Volume 7.8; Monocytes # (A) 0.5 k/uL (0-1.0); Monocytes % (A) 7 %; Neutrophils # (A) 4.1 k/uL (1.3-7.7); Neutrophils % (A) 58 %; Platelet Count 212 k/uL (150-450); RBC 3.42 m/uL (3.80-5.40); RDW 15.4 % (11.5-15.5); WBC 7.1 k/uL (3.8-10.6)
[2018-11-21 07:51] LABS: INR 1.6 (<1.2); Prothrombin Time 16.3 sec (9.0-12.0)
[2018-11-21 08:01] LABS: Calcium 8.2 mg/dL (8.4-10.2); Magnesium 1.1 mg/dL (1.6-2.3); Potassium 4.3 mmol/L (3.5-5.1)
[2018-11-21] MEDS: INSULIN ASPART 100 UNIT/ML 1 ML 10 ML VIAL SQ SCH ×2 (08:13→12:58)
[2018-11-21] MEDS: ENOXAPARIN 100 MG/ML SYRINGE SQ SCH (08:19)
[2018-11-21] MEDS: PANTOPRAZOLE 40 MG TABLET PO SCH (08:19)
[2018-11-21] MEDS: QUEtiapine 25 MG TAB PO SCH (08:19)
[2018-11-21] MEDS: MAGNESIUM SULFATE-D5W PMX 1 GM in DEXTROSE/WATER 1 100ML.BAG IVPB SCH ×2 (08:19→10:09)
[2018-11-21] MEDS: ALLOPURINOL 100 MG TAB PO SCH (08:19)
[2018-11-21] MEDS ORDERED: MAGNESIUM OXIDE 400 MG TAB PO SCH (09:00)
[2018-11-21 11:55] LABS: Glucose,Whole Blood 279 mg/dL (75-99)
--- NOTE | 2018-11-21 12:19 | P.PN ---
Subjective Progress Note Date: 11/21/18 Seen and examined for the follow-up of acute kidney injury. Doing better. No nausea vomiting diarrhea. Tolerating diet. Objective - Vital Signs Vital signs: Vital Signs Temp 98.0 F 11/21/18 07:21 Pulse 93 11/21/18 07:21 Resp 18 11/21/18 07:21 BP 178/79 11/21/18 07:21 Pulse Ox 94 L 11/21/18 07:21 Intake & Output 11/20/18 11/21/18 11/21/18 18:59 06:59 18:59 Intake Total 1500 Balance 1500 Intake: Intake, IV Titration 1500 Amount Sodium Chloride 0.9% 1, 1500 000 ml @ 150 mls/hr IV . Q6H40M [facility] Rx#:[id number] Other: Voiding Method Toilet Toilet Toilet # Voids 3 2 - Exam No acute distress. S1-S2 heard Lungs clear No edema - Labs CBC & Chem 7: 11/21/18 07:20 11/21/18 07:20 Labs: Abnormal Lab Results - Last 24 Hours (Table) 11/20/18 11/20/18 11/20/18 Range/Units 12:11 14:50 16:42 RBC (3.80-5.40) m/uL Hgb (11.4-16.0) gm/dL Hct (34.0-46.0) % PT (9.0-12.0) sec INR (<1.2) Chloride (98-107) mmol/L BUN (7-17) mg/dL Creatinine (0.52-1.04) mg/dL Glucose (74-99) mg/dL POC Glucose (mg/dL) 64 L 113 H 149 H (75-99) mg/dL Calcium (8.4-10.2) mg/dL Magnesium (1.6-2.3) mg/dL 11/20/18 11/20/18 11/21/18 Range/Units 20:23 21:21 00:27 RBC (3.80-5.40) m/uL Hgb (11.4-16.0) gm/dL Hct (34.0-46.0) % PT (9.0-12.0) sec INR (<1.2) Chloride (98-107) mmol/L BUN (7-17) mg/dL Creatinine (0.52-1.04) mg/dL Glucose (74-99) mg/dL POC Glucose (mg/dL) 182 H 102 H (75-99) mg/dL Calcium (8.4-10.2) mg/dL Magnesium 1.1 L (1.6-2.3) mg/dL 18 18 11/21/18 Range/Units 02:02 06:51 07:20 RBC (3.80-5.40) m/uL Hgb (11.4-16.0) gm/dL Hct (34.0-46.0) % PT 16.3 H (9.0-12.0) sec INR 1.6 H (<1.2) Chloride (98-107) mmol/L BUN (7-17) mg/dL Creatinine (0.52-1.04) mg/dL Glucose (74-99) mg/dL POC Glucose (mg/dL) 135 H 145 H (75-99) mg/dL Calcium (8.4-10.2) mg/dL Magnesium (1.6-2.3) mg/dL 18 18 11/21/18 Range/Units 07:20 07:20 11:44 RBC 3.42 L (3.80-5.40) m/uL Hgb 10.6 L (11.4-16.0) gm/dL Hct 32.8 L (34.0-46.0) % PT (9.0-12.0) sec INR (<1.2) Chloride 113 H (98-107) mmol/L BUN 20 H (7-17) mg/dL Creatinine 2.52 H (0.52-1.04) mg/dL Glucose 163 H (74-99) mg/dL POC Glucose (mg/dL) 279 H (75-99) mg/dL Calcium 8.2 L (8.4-10.2) mg/dL Magnesium 1.1 L (1.6-2.3) mg/dL Assessment and Plan Assessment: #1 acute kidney injury secondary to prerenal process creatinine back to baseline. #2 CK D4 secondary to nephrosclerosis baseline creatinine around 2.4 MG per DL. #3 anemia with chronic kidney disease #4 CK D with metabolic bone disease #5 hypertension with chronic kidney disease. Plan: #1 creatinine stable back to baseline. #2 stop IV fluids #3 avoid nephrotoxic agents and hypotensive episodes Stable from nephrology for discharge. Follow up in outpatient office in 2-3 weeks
--- NOTE | 2018-11-21 13:37 | P.DS ---
Providers Date of admission: 11/17/18 01:18 Attending physician: Clifford Alvarez Consults: 11/17/18 00:34 Consult Physician Stat Consulting Provider: Betty Stahl Consult Reason/Comments: Renal failure Do you want consulting provider notified?: Yes 11/18/18 09:16 Consult Physician Routine Consulting Provider: Babak Cyr Consult Reason/Comments: audiory hallucinations Do you want consulting provider notified?: Already Contacted Primary care physician: [facility] Course: 63-year-old female with a history of diabetes mellitus on insulin pump, history of Chronic kidney stage IV baseline creatinine 2.6 comes to the ER for hypoglycemia. Patient says that she was not feeling well and her sugars were dropping at home the vocational rehabilitation consultant was adjusting the insulin as an outpatient but the blood sugars still continue to drop so the patient came into the ER for about further evaluation and management. The patient otherwise did not complain of any chest pain or racing heart, she did not complain of any cough or shortness of breath, she said that she's been drinking fluids at home she thinks but she's not been good with her food intake. She does not complain of any nausea vomiting or diarrhea constipation, no tingling numbness of any extremities, no itch no rash. She did not complain of any bleeding from anywhere. ER course-patient's vitals were stable in the ER. Lab work was done which showed WAC 10.3 hemoglobin 11.6 platelets 219 K INR was 7.2 sodium 134 potassium 3.1 BU and 48 creatinine 6.32. Urinalysis showed a lot of hyaline casts hence, squamous epithelial cells. Patient was given vitamin K and was given potassium chloride. She was started on IV fluids and admitted to the hospitalist service for further evaluation and management 11/20/2018 Patient is seen and examined by me at bedside. She was lying in bed, not in distress. Sitter was at bedside. Patient presents with suicidal ideation and she's been evaluated by psychiatrist. When I saw the patient she was talking about family members standing by the door when actually nobody was there , most likely patient has visual hallucination. Patient denies chest pain, no dyspnea. No abdominal pain or nausea vomiting. No change in urine or bowel habits as per patient no fever. Her creatinine is trending down while on IV fluids and chick room supervisor following the patient. Patient is on insulin pump, she self administered but looks like the patient is disoriented and she is been hypoglycemic this morning about 56-64, sugar currently 79. I think it is safer for the patient to stop with the insulin pump and put her on insulin sliding scale and I discussed with bed side nurse about this. INR today is 1.6 , she is taking Coumadin was restarted. Probably will need some bridging until INR is 2 target 2-3. Patient telling me she has history of pulmonary embolism in 2014. CBC and BMP were reviewed. 11/21/2018 Patient's creatinine is at her baseline and patient is cleared for discharge will discontinue Lasix. Patient has had auditory hallucinations because of the psychiatrist evaluated the patient and he is recommending Seroquel and psychiatry also ordered a sitter. If cleared by psychiatry patient will be discharged today. We'll make sure patient can use insulin pump. Patient is cleared from nephrology perspective will discontinue Lasix. PHYSICAL EXAMINATION: GENERAL: The patient is alert and oriented x3, not in any acute distress. Well developed, well nourished. HEENT: Pupils are round and equally reacting to light. EOMI. No scleral icterus. No conjunctival pallor. Normocephalic, atraumatic. No pharyngeal erythema. No thyromegaly. CARDIOVASCULAR: S1 and S2 present. No murmurs, rubs, or gallops. PULMONARY: Chest is clear to auscultation, no wheezing or crackles. ABDOMEN: Soft, nontender, nondistended, normoactive bowel sounds. No palpable organomegaly. MUSCULOSKELETAL: No joint swelling or deformity. EXTREMITIES: No cyanosis, clubbing, or pedal edema. NEUROLOGICAL: Gross neurological examination did not reveal any focal deficits. SKIN: No rashes. Assessment and Plan Assessment: - KATHLEEN on CK D stage IV secondary to prerenal azotemia from intravascular depletion - dehydration on iv fluid - History of PE on Coumadin, patient is also on bridging Lovenox which was discontinued because of her poor renal function patient's PEU was a while ago because of which I'll just resume her Coumadin but will not continue Lovenox. Patient's INR is 1.6 her Coumadin dosing was increased to 60 kg daily -Type 2 diabetes mellitus. certified diabetes educator we counseled her regarding using the insulin as there were issues during the hospitalization with hyperglycemia while she was using the pump - Hypomagnesemia - Hypokalemiapotassium levels normal now - History of DVT and PE on Coumadin - History of CAD Patient Condition at Discharge: Stable Plan - Discharge Summary Discharge Rx Participant: No New Discharge Prescriptions: New Magnesium Oxide [Mag-Ox] 400 mg PO TID #90 tab Mirtazapine [Remeron] 15 mg PO HS #30 tab QUEtiapine [SEROquel] 25 mg PO BID #60 tab Warfarin [Coumadin] 6 mg PO DAILY tab Continue Ergocalciferol (Vitamin D2) [Drisdol] 50,000 unit PO SA Calcitriol 0.5 mcg PO MOTUWETHFR Insulin Aspart (For Pump) [NovoLOG (For Pump)] 0.01 unit SQ-PUMP CONTINUOUS Pravastatin Sodium [Pravachol] 40 mg PO HS Allopurinol [Zyloprim] 100 mg PO DAILY Cyanocobalamin (Vitamin B-12) [Vitamin B-12] 500 mcg PO DAILY Discontinued Furosemide [Lasix] 40 mg PO DAILY Warfarin Sodium 6 mg PO MOWEFRSA Warfarin [Coumadin] 4 mg PO [facility] Discharge Medication List Ergocalciferol (Vitamin D2) [Drisdol] 50,000 unit PO SA 07/13/16 [History] Calcitriol 0.5 mcg PO MOTUWETHFR 07/19/17 [History] Insulin Aspart (For Pump) [NovoLOG (For Pump)] 0.01 unit SQ-PUMP CONTINUOUS [History] Allopurinol [Zyloprim] 100 mg PO DAILY 11/16/18 [History] Cyanocobalamin (Vitamin B-12) [Vitamin B-12] 500 mcg PO DAILY 11/16/18 [History] Pravastatin Sodium [Pravachol] 40 mg PO HS 11/16/18 [History] Magnesium Oxide [Mag-Ox] 400 mg PO TID #90 tab 11/21/18 [Rx] Mirtazapine [Remeron] 15 mg PO HS #30 tab 11/21/18 [Rx] QUEtiapine [SEROquel] 25 mg PO BID #60 tab 11/21/18 [Rx] Warfarin [Coumadin] 6 mg PO DAILY tab 11/21/18 [Rx] Follow up Appointment(s)/Referral(s): Libia Bhatt DO [Primary Care Provider] - 3 Days Ambulatory/Diagnostic Orders: Basic Metabolic Panel [LAB.AMB] Time Frame: 3 Days, Location: None Selected Prothrombin Time INR [LAB.AMB] Time Frame: 3 Days, Location: None Selected Discharge Disposition: HOME WITH HOME HEALTH SERVICES
[2018-11-21 14:51] VITALS: BP 159/71; PULSE 82; RESP 16; TEMP 98.1
[2018-11-21] MEDS: CALCITRIOL 0.25 MCG CAP PO SCH (18:12)
[2018-11-21] MEDS: WARFARIN 3 MG TAB PO SCH (18:12)
== END 2018-11-21 18:19 | disposition home or self-care (01) | DRG 683 ==
LOC: EC 21:05 → 4SSUR 11-17 01:18
PROVIDERS: ADMIT Hospitalist; ATTEND Hospitalist
DX: N17.0 Acute kidney failure with tubular necrosis (principal); R45.851 Suicidal ideations; F32.3 Major depressive disorder, single episode, severe with psychotic features; D63.1 Anemia in chronic kidney disease; E11.22 Type 2 diabetes mellitus with diabetic chronic kidney disease; E11.649 Type 2 diabetes mellitus with hypoglycemia without coma; E11.65 Type 2 diabetes mellitus with hyperglycemia; E78.5 Hyperlipidemia, unspecified; E83.42 Hypomagnesemia; E86.0 Dehydration; E86.1 Hypovolemia; E87.6 Hypokalemia; E83.89 Other disorders of mineral metabolism; I12.9 Hypertensive chronic kidney disease with stage 1 through stage 4 chronic kidney disease, or unspecified chronic kidney disease; I25.10 Atherosclerotic heart disease of native coronary artery without angina pectoris; N18.4 Chronic kidney disease, stage 4 (severe); R79.1 Abnormal coagulation profile; E55.9 Vitamin D deficiency, unspecified; Z79.01 Long term (current) use of anticoagulants; Z79.4 Long term (current) use of insulin; Z79.899 Other long term (current) drug therapy; Z86.711 Personal history of pulmonary embolism; Z86.718 Personal history of other venous thrombosis and embolism; Z88.1 Allergy status to other antibiotic agents; Z88.0 Allergy status to penicillin; Z96.41 Presence of insulin pump (external) (internal); Z90.49 Acquired absence of other specified parts of digestive tract
CPT/HCPCS: 36415; 74018; 76770; 80048; 80053; 81001; 82150; 83036; 83690; 83735; 84484; 85025; 85027; 85610; 87086; 93005; 93306; 99285

== ENCOUNTER 2018-11-26 20:31 | Observation (INO) | payer MEDICARE, BC ==
[2018-11-26] MEDS ORDERED: ASPIRIN 81 MG PO STA (20:40)
--- NOTE | 2018-11-26 21:06 | ED ---
Chest Pain HPI - General Chief Complaint: Chest Pain Stated Complaint: Chest pain Time Seen by Provider: 11/26/18 20:40 Source: patient, RN notes reviewed Mode of arrival: wheelchair Limitations: no limitations - History of Present Illness Initial Comments: 63-year-old female presents emergency Department chief complaint of chest pain. Patient complains of centralized chest pain nonradiating. Patient states that this started approximately 3-4 hours prior arrival. Patient states that she has had no prior cardiac events though she has a history of hyperlipidemia, diabetes, hypertension. Patient states that she has no associated shortness of breath no recent URI symptoms. Patient states that this pain is different from that she's had in the past. Patient was recent hospital for hyperglycemia. Patient denies any other associated symptoms. - Related Data Home Medications Medication Instructions Recorded Confirmed Ergocalciferol (Vitamin D2) 50,000 unit PO SA 07/13/16 11/26/18 [Drisdol] Calcitriol 0.5 mcg PO MOTUWETHFR 07/19/17 11/26/18 Insulin Aspart (For Pump) [NovoLOG 0.01 unit SQ-PUMP CONTINUOUS 05/13/18 (For Pump)] Allopurinol [Zyloprim] 100 mg PO DAILY 11/16/18 11/26/18 Cyanocobalamin (Vitamin B-12) 500 mcg PO DAILY 11/16/18 11/26/18 [Vitamin B-12] Pravastatin Sodium [Pravachol] 40 mg PO HS 11/16/18 11/26/18 Furosemide [Lasix] 40 mg PO DAILY 11/26/18 11/26/18 Previous Rx's Medication Instructions Recorded Warfarin [Coumadin] 6 mg PO DAILY tab 11/21/18 Allergies Allergy/AdvReac Type Severity Reaction Status Date / Time azithromycin Allergy Unknown Rash/Hives Verified 11/26/18 21:13 amoxicillin Allergy Rash/Hives Verified 11/26/18 21:13 Review of Systems ROS Statement: Those systems with pertinent positive or pertinent negative responses have been documented in the HPI. ROS Other: All systems not noted in ROS Statement are negative. EKG Findings - EKG Comments: EKG Findings:: EKG performed at 20:55 normal sinus rhythm with a rate of 78 MS 140 QRS 78 QT/QTC 422/455 Past Medical History Past Medical History: Coronary Artery Disease (CAD), Diabetes Mellitus, Deep Vein Thrombosis (DVT), Hyperlipidemia, Hypertension, Pulmonary Embolus (PE), Renal Disease Additional Past Medical History / Comment(s): Vitamin D Deficency, pt has insulin pump, elevated liver enzymes History of Any Multi-Drug Resistant Organisms: None Reported Past Surgical History: Appendectomy, Cholecystectomy Additional Past Surgical History / Comment(s): Breast Biopsy, Carapal tunnel to right hand, Heart Catherization, colonoscopy 08/2014 Past Anesthesia/Blood Transfusion Reactions: No Reported Reaction Past Psychological History: No Psychological Hx Reported Smoking Status: Never smoker Past Alcohol Use History: Occasional Past Drug Use History: None Reported - Past Family History Mother Family Medical History: No Reported History Additional Family Medical History / Comment(s): heart disease Father Additional Family Medical History / Comment(s): heart disease General Exam Limitations: no limitations General appearance: alert, in no apparent distress Head exam: Present: atraumatic, normocephalic, normal inspection Eye exam: Present: normal appearance, PERRL, EOMI. Absent: scleral icterus, conjunctival injection, periorbital swelling ENT exam: Present: normal exam, normal oropharynx, mucous membranes moist Neck exam: Present: normal inspection, full ROM. Absent: tenderness, meningismus, lymphadenopathy Respiratory exam: Present: normal lung sounds bilaterally. Absent: respiratory distress, wheezes, rales, rhonchi, stridor Cardiovascular Exam: Present: regular rate, normal rhythm, normal heart sounds. Absent: systolic murmur, diastolic murmur, rubs, gallop, clicks GI/Abdominal exam: Present: soft, normal bowel sounds. Absent: distended, tenderness, guarding, rebound, rigid Course Vital Signs 11/26/18 11/26/18 11/26/18 20:35 20:59 21:00 Temperature 98.1 F Pulse Rate 78 74 75 Respiratory 18 15 14 Rate Blood Pressure 158/80 O2 Sat by Pulse 97 99 98 Oximetry 11/26/18 21:22 Temperature Pulse Rate 78 Respiratory 16 Rate Blood Pressure 133/69 O2 Sat by Pulse 96 Oximetry Chest Pain MDM - MDM 63-year-old female presented for chest pain. Patient has no acute EKG changes. Patient does have mild elevated troponin most likely related to her renal failure. Patient does take Coumadin will be given 10 mg now secondary to subtherapeutic. Patient will be admitted with repeat troponin cardiology evaluation. Case discussed with Courtney with [facility]ist Disposition Clinical Impression: Chest pain Disposition: ADMITTED IP TO THIS HOSP Condition: Fair Referrals: Libia Bhatt DO [Primary Care Provider] - 1-2 days
[2018-11-26 21:18] LABS: Basophils # (A) 0.1 k/uL (0-0.2); Basophils % (A) 1 %; Eosinophils # (A) 0.1 k/uL (0-0.7); Eosinophils % (A) 1 %; HCT 36.7 % (34.0-46.0); Lymphocytes # (A) 1.7 k/uL (1.0-4.8); Lymphocytes % (A) 20 %; MCH 30.2 pg (25.0-35.0); MCHC 32.6 g/dL (31.0-37.0); MCV 92.8 fL (80.0-100.0); Mean Platelet Volume 8.6; Monocytes # (A) 0.9 k/uL (0-1.0); Monocytes % (A) 10 %; Neutrophils # (A) 5.5 k/uL (1.3-7.7); Neutrophils % (A) 65 %; Platelet Count 220 k/uL (150-450); RBC 3.96 m/uL (3.80-5.40); RDW 15.9 % (11.5-15.5); WBC 8.4 k/uL (3.8-10.6)
[2018-11-26 21:44] LABS: Albumin 3.9 g/dL (3.5-5.0); Calcium 8.6 mg/dL (8.4-10.2); Total Bilirubin 0.7 mg/dL (0.2-1.3); Total Protein 6.7 g/dL (6.3-8.2)
[2018-11-26 21:45] LABS: INR 1.6 (<1.2); Partial Thromboplastin Time 22.2 sec (22.0-30.0)
--- NOTE | 2018-11-26 21:51 | XR ---
EXAMINATION TYPE: XR chest 2V DATE OF EXAM: 11/26/2018 COMPARISON: NONE HISTORY: Chest pain TECHNIQUE: Frontal and lateral views of the chest are obtained. FINDINGS: Heart and mediastinum are normal. Lungs are clear. Diaphragm is normal. Bony thorax is int act. There are chest leads. IMPRESSION: Normal chest. No change.
[2018-11-26 21:55] LABS: Potassium 4.1 mmol/L (3.5-5.1)
[2018-11-26 22:01] LABS: Creatine Kinase MB 0.8 ng/mL (0.0-2.4)
[2018-11-26 22:08] LABS: Troponin I 0.04 ng/mL (0.000-0.034)
[2018-11-26] MEDS ORDERED: NITROGLYCERIN SL TABS 0.4 MG TAB SUBLINGUAL PRN (22:29)
[2018-11-26] MEDS ORDERED: WARFARIN 10 MG TAB PO ONE (22:30)
[2018-11-27] MEDS ORDERED: Magnesium Replacement Protocol 1 EACH MISC MISCELLANE PRN (00:17)
[2018-11-27] MEDS ORDERED: ACETAMINOPHEN TAB 500 MG TAB PO PRN (00:23)
[2018-11-27] MEDS ORDERED: HYDROcodone/APAP 5-325MG 1 EACH TAB PO PRN (00:23)
[2018-11-27] MEDS: MAGNESIUM SULFATE-D5W PMX 1 GM in DEXTROSE/WATER 1 100ML.BAG IVPB SCH ×3 (01:01→03:01)
[2018-11-27] MEDS ORDERED: INSULIN PUMP BASAL RATES 1 EACH MISC MISCELLANE PRN (01:03)
[2018-11-27] MEDS ORDERED: INSPUCOR MISCELLANE PRN (01:03)
[2018-11-27] MEDS ORDERED: INSULIN ASPART 100 UNIT/ML 1 ML 10 ML VIAL SQ PRN (01:03)
[2018-11-27 04:21] LABS: Creatine Kinase MB 0.8 ng/mL (0.0-2.4)
[2018-11-27 04:33] LABS: Troponin I 0.048 ng/mL (0.000-0.034)
[2018-11-27 05:54] LABS: Glucose,Whole Blood 97 mg/dL (75-99)
[2018-11-27] MEDS: PANTOPRAZOLE 40 MG TABLET PO SCH (06:24)
[2018-11-27] MEDS: INSULIN PUMP MEAL BOLUS 1 UNIT MISC MISCELLANE SCH ×4 (06:24→20:30)
[2018-11-27 06:42] LABS: Appearance,Urine Clear (Clear); Bilirubin,Urine Negative (Negative); Blood,Urine Negative (Negative); Color,Urine Colorless; Glucose,Urine (UA) Negative (Negative); Ketones,Urine Negative (Negative); Leukocyte Esterase,Urine Negative (Negative); Nitrite,Urine Negative (Negative); Protein,Urine Negative (Negative); Specific Gravity,Urine 1.003 (1.001-1.035); Urobilinogen,Urine <2.0 mg/dL (<2.0)
[2018-11-27] MEDS: FUROSEMIDE 40 MG TAB PO SCH (08:13)
[2018-11-27] MEDS: ALLOPURINOL 100 MG TAB PO SCH (08:13)
[2018-11-27] MEDS: CYANOCOBALAMIN 500 MCG TAB PO SCH (08:13)
[2018-11-27] MEDS: ASPIRIN 325 MG TAB PO SCH (08:14)
--- NOTE | 2018-11-27 08:42 | HP ---
HISTORY AND PHYSICAL CHIEF COMPLAINT: Chest pain. HISTORY OF PRESENT ILLNESS: This 63-year-old woman with a past medical history of multiple medical problems including CAD, history of diabetes, DVT, hypertension, hyperlipidemia, pulmonary embolism, was recently admitted with renal failure. The patient improved significantly. The patient went home and apparently patient with a brother. She had chest pain which is moderate to severe in intensity felt in the anterior part of the chest, sharp in character. The patient came to [facility] and admitted for further evaluation and treatment. The creatinine was 3.10. Troponin was 0.040 and the EKG showed ST-T changes. Patient admitted for further evaluation and treatment. There is no history of fever, rigors or chills. No history of headache, loss of consciousness, seizures. The patient is followed by Dr. Libia Bhatt in the outpatient setting. PAST MEDICAL HISTORY: History of recent renal failure, CAD, diabetes type 2, DVT, hypertension, hyperlipidemia, pulmonary embolism, vitamin D deficiency, appendectomy, cholecystectomy. MEDICATIONS: Home medications are: 1. Coumadin 6 mg p.o. daily. 2. Pravachol 40 mg q.h.s. 3. Insulin pump. 4. Lasix 40 mg. 5. Vitamin D2 50,000 daily Wednesday. 6. Vitamin B12 500 mcg p.o. daily. 7. Calcitriol 0.5 Wednesday, Wednesday, Wednesday, , Wednesday. 8. Zyloprim 100 mg daily. ALLERGIES: ZITHROMAX AND AMOXICILLIN. FAMILY HISTORY: History of heart disease in the family. SOCIAL HISTORY: No history of smoking. No history of alcohol intake. REVIEW OF SYSTEMS: ENT: No diminished hearing. No diminished vision. CARDIOVASCULAR: As mentioned earlier. RESPIRATORY: As mentioned earlier. GI: No nausea or vomiting. no dysuria. Nervous system: No numbness or weakness. ALLERGY/IMMUNOLOGY: No asthma or hayfever. MUSCULOSKELETAL: As mentioned earlier. HEMATOLOGY/ONCOLOGY: No history of anemia. ENDOCRINE: No history of diabetes or hypothyroidism. CONSTITUTIONAL: As mentioned earlier. Dermatology: Negative. Rheumatology: Negative. Psychiatry: As mentioned earlier. PHYSICAL EXAMINATION: GENERAL: Alert, oriented x3. VITAL SIGNS: Pulse 81, blood pressure 156/82, respiration 18, temperature 98.4, pulse ox 97% on room air. HEENT: Conjunctive normal. Oral mucosa moist. NECK is no jugular venous distention. No carotid bruit. No lymph node enlargement. CARDIOVASCULAR: S1, S2. RESPIRATORY: Breath sounds diminished in the bases. No rhonchi. No crackles. ABDOMEN: Soft, nontender. No mass palpable. LEGS: No edema and no swelling. NERVOUS SYSTEM: Higher functions as mentioned earlier. Moves all 4 limbs. No focal motor or sensory deficits. Lymphatics: No lymph nodes palpable in the neck, axillae or groin. SKIN: No ulcer, rash or bleeding. LABS: WBC 8.8, hemoglobin is 12, INR 1.6, creatinine 3.10. ASSESSMENT: 1. Chest pain possible unstable angina possible non ST-segment elevation myocardial infarction. 2. Troponin 0.040. 3. Renal failure acute on chronic. 4. Hypomagnesemia. 5. History of coronary artery disease. 6. Diabetes mellitus type 2. 7. History of deep vein thrombosis. 8. Hyperlipidemia. 9. Hypertension. 10.History of pulmonary embolism. 11.History of vitamin D deficiency. 12.History of insulin pump. 13.History of cholecystectomy. RECOMMENDATIONS AND DISCUSSION: In this 63-year-old woman who presented with multiple complex medical issues, we will monitor the patient closely, continue the current medications, management and symptomatic treatment. I recommend resume the home medications. Repeat labs. Cardiology consultation. Magnesium replacement. 2D echo with Doppler will be repeated and prognosis guarded because of multiple complex medical issues. Further recommendations to follow. A copy of dictation being forwarded to Dr. Libia Bhatt who is the primary physician. MMSTEFF / GUSTAVON: [id number] / MTDD
[2018-11-27 08:54] LABS: INR 1.7 (<1.2)
[2018-11-27 09:09] LABS: Cholesterol 166 mg/dL (<200); HDL Cholesterol 49 mg/dL (40-60); LDL Cholesterol,Calculated 83 mg/dL (0-99); Triglycerides 172 mg/dL (<150)
[2018-11-27 09:22] LABS: Creatine Kinase MB 0.6 ng/mL (0.0-2.4)
[2018-11-27 09:35] LABS: Troponin I 0.04 ng/mL (0.000-0.034)
[2018-11-27 12:07] LABS: Glucose,Whole Blood 52 mg/dL (75-99)
[2018-11-27 12:07] LABS: Glucose,Whole Blood 88 mg/dL (75-99)
[2018-11-27 12:07] LABS: Glucose,Whole Blood 59 mg/dL (75-99)
[2018-11-27] MEDS: METOPROLOL TARTRATE 25 MG TAB PO SCH ×2 (12:45→20:33)
--- NOTE | 2018-11-27 16:19 | P.CRDCN ---
History of Present Illness History of present illness: This is Dr. Schuster dictating a consult on this patient The patient was interviewed and examined by me IMPRESSION / ASSESSMENT: Chest discomfort lasting for 3-4 hours midsternal with abnormal troponins with a normalizing trend. This is a flat trend Chronic kidney disease hypertensive heart disease type 2 diabetes dyslipidemia Insulin-dependent Chronic kidney disease with a creatinine of 3.1 PLAN: Increase Pravachol to 80 mg by mouth daily Start metoprolol 25 mg twice daily Medical management of coronary artery disease and stress testing on Wednesday, Ruddy cardio light The risk of proceeding with cardiac catheterization is rapid progression towards the need for dialysis HPI Patient presented to the emergency room with midsternal chest discomfort nonradiating lasting for 3-4 hours prior to arrival History of hypertension type 2 diabetes and dyslipidemia No recent shortness of breath Recent hospitalization for hyperglycemia, patient is on insulin ROS: No fever chills or rigors, no cough, phlegm or expectoration, no nausea, vomiting or diarrhea, no hematuria, dysuria, no musculoskeletal complaints, no strokes or seizures, no skin lesions. EXAMINATION Blood pressure is mostly in the 130s systolic she's afebrile was rate is in normal range Breath sounds are clear no rhonchi no crackles I don't hear any murmur or the she has been told she has a valvular problem in the past Breath sounds reduced bilaterally no rhonchi no crackles Abdomen is soft nontender External is warm no edema REVIEW OF LABS, ECG Normal chest x-ray per radiology Twelve-lead ECG shows sinus rhythm normal TN narrow QRS for RV progression nonspecific ST-T abnormalities Abnormal troponins of 0.04 and 0.05 in the setting of a BUN of 26 and a creatinine of 3.1 Past Medical History Past Medical History: Coronary Artery Disease (CAD), Diabetes Mellitus, Deep Vein Thrombosis (DVT), Hyperlipidemia, Hypertension, Pulmonary Embolus (PE), Renal Disease Additional Past Medical History / Comment(s): Vitamin D Deficency, pt has insulin pump, elevated liver enzymes History of Any Multi-Drug Resistant Organisms: None Reported Past Surgical History: Appendectomy, Cholecystectomy Additional Past Surgical History / Comment(s): Breast Biopsy, Carapal tunnel to right hand, Heart Catherization, colonoscopy 08/2014 Past Anesthesia/Blood Transfusion Reactions: No Reported Reaction Past Psychological History: No Psychological Hx Reported Smoking Status: Never smoker Past Alcohol Use History: Occasional Past Drug Use History: None Reported - Past Family History Mother Family Medical History: No Reported History Additional Family Medical History / Comment(s): heart disease Father Additional Family Medical History / Comment(s): heart disease Medications and Allergies Home Medications Medication Instructions Recorded Confirmed Type Ergocalciferol (Vitamin D2) 50,000 unit PO SA 07/13/16 11/26/18 History [Drisdol] Calcitriol 0.5 mcg PO MOTUWETHFR 07/19/17 11/26/18 History Insulin Aspart (For Pump) [NovoLOG 0.01 unit SQ-PUMP CONTINUOUS 05/13/18 History (For Pump)] Allopurinol [Zyloprim] 100 mg PO DAILY 11/16/18 11/26/18 History Cyanocobalamin (Vitamin B-12) 500 mcg PO DAILY 11/16/18 11/26/18 History [Vitamin B-12] Pravastatin Sodium [Pravachol] 40 mg PO HS 11/16/18 11/26/18 History Warfarin [Coumadin] 6 mg PO DAILY tab 11/21/18 11/26/18 Rx Furosemide [Lasix] 40 mg PO DAILY 11/26/18 11/26/18 History Allergies Allergy/AdvReac Type Severity Reaction Status Date / Time azithromycin Allergy Unknown Rash/Hives Verified 11/26/18 21:13 amoxicillin Allergy Rash/Hives Verified 11/26/18 21:13 Physical Exam Vitals: Vital Signs Temp Pulse Pulse Resp BP BP Pulse Ox 11/27/18 08:15 98 F 73 18 158/70 92 L 11/27/18 04:00 85 20 125/59 93 L 11/27/18 00:00 76 16 11/26/18 23:02 98.1 F 76 16 133/64 96 11/26/18 22:44 98.4 F 81 18 156/62 96 11/26/18 21:22 78 16 133/69 96 11/26/18 21:00 75 14 98 11/26/18 20:59 74 15 99 11/26/18 20:35 98.1 F 78 18 158/80 97 Intake and Output 11/26/18 11/27/18 11/27/18 22:59 06:59 14:59 Other: Voiding Method Toilet # Voids 2 Weight 108.862 kg 107.2 kg Results 11/26/18 20:55 11/26/18 20:55 Cardiac Enzymes 11/26/18 11/26/18 11/27/18 Range/Units 20:55 20:55 03:01 AST 40 H (14-36) U/L CK-MB (CK-2) 0.8 0.8 (0.0-2.4) ng/mL Troponin I 0.040 H* 0.048 H* (0.000-0.034) ng/mL Coagulation 11/26/18 11/27/18 Range/Units 20:55 08:20 PT 16.0 H 17.0 H (9.0-12.0) sec APTT 22.2 (22.0-30.0) sec Lipids 11/27/18 Range/Units 08:20 Triglycerides 172 H (<150) mg/dL Cholesterol 166 (<200) mg/dL HDL Cholesterol 49 (40-60) mg/dL CBC 11/26/18 Range/Units 20:55 WBC 8.4 (3.8-10.6) k/uL RBC 3.96 (3.80-5.40) m/uL Hgb 12.0 (11.4-16.0) gm/dL Hct 36.7 (34.0-46.0) % Plt Count 220 (150-450) k/uL Comprehensive Metabolic Panel 11/26/18 Range/Units 20:55 Sodium 137 (137-145) mmol/L Potassium 4.1 (3.5-5.1) mmol/L Chloride 101 (98-107) mmol/L Carbon Dioxide 25 (22-30) mmol/L BUN 26 H (7-17) mg/dL Creatinine 3.10 H (0.52-1.04) mg/dL Glucose 98 (74-99) mg/dL Calcium 8.6 (8.4-10.2) mg/dL AST 40 H (14-36) U/L ALT 36 (9-52) U/L Alkaline Phosphatase 119 (38-126) U/L Total Protein 6.7 (6.3-8.2) g/dL Albumin 3.9 (3.5-5.0) g/dL Current Medications Generic Name Dose Route Start Last Admin Trade Name Freq PRN Reason Stop Dose Admin Acetaminophen 500 mg 11/27/18 00:23 Tylenol Tab PO Q6HR PRN Fever and/ or Pain Hydrocodone Bitart/Acetaminophen 1 each 11/27/18 00:23 Temple 5-325 PO Q6HR PRN Pain Allopurinol 100 mg 11/27/18 09:00 11/27/18 08:13 Zyloprim PO 100 mg DAILY [facility] Administration Alprazolam 0.25 mg 11/27/18 00:23 Xanax PO TID PRN Anxiety Aspirin 325 mg 11/27/18 09:00 11/27/18 08:14 Aspirin PO Not Given DAILY [facility] Calcitriol 0.5 mcg 11/28/18 09:00 Rocaltrol PO MoTuWeThFr@0900 [facility] Cyanocobalamin 500 mcg 11/27/18 09:00 11/27/18 08:13 Vitamin B-12 PO 500 mcg DAILY [facility] Administration Ergocalciferol 50,000 unit 12/03/18 09:00 Vitamin D2 PO Sa@0900 [facility] Furosemide 40 mg 11/27/18 09:00 11/27/18 08:13 Lasix PO 40 mg DAILY [facility] Administration Insulin Aspart 0 unit 11/27/18 01:03 Novolog SQ DAILY PRN Insulin Pump Replacement Metoprolol Tartrate 25 mg 11/27/18 09:15 Lopressor PO BID [facility] Miscellaneous Information 1 each 11/27/18 00:17 Magnesium Per Protocol MISCELLANE DAILY PRN Per Protocol Protocol Miscellaneous Information 1 each 11/27/18 01:03 Insulin Pump Basal Rates MISCELLANE Q6HR PRN Blood Sugar - High Protocol Miscellaneous Information 0 unit 11/27/18 01:03 Insulin Pump Correction Bolus MISCELLANE ACHS PRN Blood Sugar - High Protocol Miscellaneous Information 0 unit 11/27/18 07:30 11/27/18 06:24 Insulin Pump Meal Bolus MISCELLANE Not Given ACHS [facility] Protocol Nitroglycerin 0.4 mg 11/26/18 22:29 Nitrostat SUBLINGUAL Q5M PRN Chest Pain Pantoprazole Sodium 40 mg 11/27/18 07:30 11/27/18 06:24 Protonix PO 40 mg [id number] [facility] Administration Pravastatin Sodium 80 mg 11/27/18 21:00 Pravachol PO HS [facility] Temazepam 15 mg 11/27/18 00:23 Restoril PO HS PRN Insomnia Warfarin Sodium 6 mg 11/27/18 18:00 Coumadin PO DAILY@1800 [facility] Intake and Output 11/26/18 11/27/18 11/27/18 22:59 06:59 14:59 Other: Voiding Method Toilet # Voids 2 Weight 108.862 kg 107.2 kg 11/26/18 20:55 11/26/18 20:55
[2018-11-27 16:28] LABS: Glucose,Whole Blood 198 mg/dL (75-99)
--- NOTE | 2018-11-27 17:00 | PN ---
PROGRESS NOTE DATE OF SERVICE: 11/27/2018 This 63-year-old woman who was admitted with chest pain had borderline elevated troponins up to 0.040. Cardiology following the patient. The patient is on medical treatment at this time. No chest pain. No palpitations. EXAM: Alert and oriented x3. Pulse 73, blood pressure 150/70, respiration 18, temp 98 degrees, pulse ox 92% on room air. HEENT: Conjunctivae normal. Oral mucosa moist. Neck is no jugular venous distention. No carotid bruit. No lymph node enlargement. CARDIOVASCULAR SYSTEM: S1, S2 muffled. RESPIRATORY SYSTEM: Breath sounds diminished at the bases. A few scattered rhonchi and crackles. Abdomen is soft, nontender. Legs are no edema. No swelling. Nervous system: No focal deficits. LABS: At this time show INR is 1.7 and troponin 0.40. ASSESSMENT: 1. Chest pain possible unstable angina, possible acute non ST segment elevation myocardial infarction. 2. Troponin 0.040. 3. Renal failure acute on chronic. 4. Hypomagnesemia. 5. History of coronary artery disease. 6. Diabetes type 2. 7. History of deep vein thrombosis. 8. History of hyperlipidemia. 9. Hypertension. 10.History of pulmonary embolus. 11.History of vitamin D deficiency. 12.History of insulin pump. 13.History of cholecystectomy. RECOMMENDATIONS AND DISCUSSION: Recommend to continue current medications, continue to monitor. Symptomatic treatment. Continue with antiplatelet agents. Continue the rest of medications. Otherwise, closely follow with Cardiology. Further recommendations to follow. MMODL / IJN: [id number] /
[2018-11-27] MEDS: WARFARIN 3 MG TAB PO SCH (17:24)
[2018-11-27 20:30] LABS: Glucose,Whole Blood 196 mg/dL (75-99)
[2018-11-27] MEDS: PRAVASTATIN SODIUM 80 MG TAB PO SCH (20:35)
[2018-11-27] MEDS ORDERED: PRAVASTATIN SODIUM 40 MG TAB PO SCH (21:00)
[2018-11-28 05:43] LABS: Glucose,Whole Blood 155 mg/dL (75-99)
[2018-11-28] MEDS: INSULIN PUMP MEAL BOLUS 1 UNIT MISC MISCELLANE SCH ×4 (06:07→21:06)
[2018-11-28] MEDS: PANTOPRAZOLE 40 MG TABLET PO SCH (06:08)
[2018-11-28 06:22] LABS: Basophils # (A) 0.1 k/uL (0-0.2); Basophils % (A) 1 %; Eosinophils # (A) 0.1 k/uL (0-0.7); Eosinophils % (A) 2 %; HCT 34.5 % (34.0-46.0); HGB 11.3 gm/dL (11.4-16.0); Lymphocytes # (A) 1.1 k/uL (1.0-4.8); Lymphocytes % (A) 17 %; MCH 30.5 pg (25.0-35.0); MCHC 32.8 g/dL (31.0-37.0); Mean Platelet Volume 8.3; Monocytes # (A) 0.7 k/uL (0-1.0); Monocytes % (A) 11 %; Neutrophils # (A) 4.1 k/uL (1.3-7.7); Neutrophils % (A) 67 %; Platelet Count 202 k/uL (150-450); RBC 3.71 m/uL (3.80-5.40); RDW 15.8 % (11.5-15.5); WBC 6.2 k/uL (3.8-10.6)
[2018-11-28 07:00] LABS: Calcium 8.5 mg/dL (8.4-10.2); Magnesium 1.5 mg/dL (1.6-2.3); Potassium 3.7 mmol/L (3.5-5.1)
[2018-11-28] MEDS: ALLOPURINOL 100 MG TAB PO SCH (07:52)
[2018-11-28] MEDS: FUROSEMIDE 40 MG TAB PO SCH (07:52)
[2018-11-28] MEDS: CYANOCOBALAMIN 500 MCG TAB PO SCH (07:53)
[2018-11-28] MEDS: ASPIRIN 325 MG TAB PO SCH (07:53)
[2018-11-28] MEDS: CALCITRIOL 0.25 MCG CAP PO SCH (07:53)
[2018-11-28] MEDS: METOPROLOL TARTRATE 25 MG TAB PO SCH ×3 (07:54→21:04)
[2018-11-28] MEDS ORDERED: Magnesium Replacement Protocol 1 EACH MISC MISCELLANE PRN (09:17)
[2018-11-28 09:31] LABS: INR 2.2 (<1.2); Prothrombin Time 21.5 sec (9.0-12.0)
[2018-11-28] MEDS: MAGNESIUM SULFATE-D5W PMX 1 GM in DEXTROSE/WATER 1 100ML.BAG IVPB SCH ×2 (09:44→10:33)
[2018-11-28] MEDS: ASPIRIN 81 MG PO SCH (10:07)
--- NOTE | 2018-11-28 11:50 | P.PN ---
Subjective Progress Note Date: 11/28/18 This is 63-year-old female who presented to the hospital with symptoms of chest discomfort, she has known chronic kidney disease, hypertension , diabetes, hyperlipidemia, she was seen in consultation yesterday by Dr. Schuster. The recommendation was to continue maximal medical therapy at this point, the risk of proceeding with cardiac catheterization put the patient at high risk for dialysis. We will perform a Lexiscan stress test on Wednesday. Patient was seen and examined this morning, denied any chest pain. Breathing is stable. She was initially refusing to take her aspirin and beta laureano, she has agreed now to take them. Blood pressure 104/60 with a heart rate in the 60s, 92% on room air. White blood cell count 6.2, hemoglobin 11.3, platelet count 202. INR 2.2. Sodium 137, potassium 3.7, BUN 24, creatinine 2.8. Magnesium 1.5. Plan of care was discussed with the patient in detail, she denies any chest discomfort this morning in breathing is stable. Objective - Vital Signs Vital signs: Vital Signs Temp 98.1 F 11/28/18 08:05 Pulse 75 11/28/18 08:05 Resp 18 11/28/18 08:05 BP 151/84 11/28/18 08:05 Pulse Ox 93 L 11/28/18 08:05 Intake & Output 11/27/18 11/28/18 11/28/18 18:59 06:59 18:59 Intake Total 240 480 Balance 240 480 Intake: Oral 240 480 Other: Voiding Method Toilet # Voids 2 2 - Exam PHYSICAL EXAMINATION: GENERAL: 63-year-old female in no acute distress at the time of my examination HEENT: Head is atraumatic, normocephalic. Pupils equal, round. Sclera anicteric. Conjunctiva are clear. Mucous membranes of the mouth are moist. Neck is supple. There is no elevated jugular venous pressure. No carotid bruit is heard. HEART EXAMINATION: Heart S1, S2 normal. No murmur or gallop heard. CHEST EXAMINATION: Lungs are clear to auscultation and precussion. No chest wall tenderness is noted on palpation or with deep breathing. ABDOMEN: Soft, nontender. Bowel sounds are heard. No organomegaly noted. EXTREMITIES: 2+ peripheral pulses with no evidence of peripheral edema and no calf tenderness noted. NEUROLOGIC patient is awake, alert and oriented 3 . . - Labs CBC & Chem 7: 11/28/18 05:56 11/28/18 05:56 Labs: Abnormal Lab Results - Last 24 Hours (Table) 11/27/18 11/27/18 11/27/18 Range/Units 11:24 11:45 16:11 RBC (3.80-5.40) m/uL Hgb (11.4-16.0) gm/dL RDW (11.5-15.5) % PT (9.0-12.0) sec INR (<1.2) Chloride (98-107) mmol/L Carbon Dioxide (22-30) mmol/L BUN (7-17) mg/dL Creatinine (0.52-1.04) mg/dL Glucose (74-99) mg/dL POC Glucose (mg/dL) 52 L 59 L 198 H (75-99) mg/dL Magnesium (1.6-2.3) mg/dL 11/27/18 11/28/18 11/28/18 Range/Units 20:29 05:40 05:56 RBC (3.80-5.40) m/uL Hgb (11.4-16.0) gm/dL RDW (11.5-15.5) % PT (9.0-12.0) sec INR (<1.2) Chloride 95 L (98-107) mmol/L Carbon Dioxide 32 H (22-30) mmol/L BUN 24 H (7-17) mg/dL Creatinine 2.81 H (0.52-1.04) mg/dL Glucose 158 H (74-99) mg/dL POC Glucose (mg/dL) 196 H 155 H (75-99) mg/dL Magnesium 1.5 L (1.6-2.3) mg/dL 11/28/18 11/28/18 Range/Units 05:56 08:44 RBC 3.71 L (3.80-5.40) m/uL Hgb 11.3 L (11.4-16.0) gm/dL RDW 15.8 H (11.5-15.5) % PT 21.5 H (9.0-12.0) sec INR 2.2 H (<1.2) Chloride (98-107) mmol/L Carbon Dioxide (22-30) mmol/L BUN (7-17) mg/dL Creatinine (0.52-1.04) mg/dL Glucose (74-99) mg/dL POC Glucose (mg/dL) (75-99) mg/dL Magnesium (1.6-2.3) mg/dL Assessment and Plan Plan: Assessment and plan #1 chest discomfort, suggestive of possible non-Q-wave myocardial infarction #2 hypertension #3 diabetes #4 hyperlipidemia #5 chronic kidney disease Plan We will continue the patient on her current medications. Obtain echocardiogram with Doppler study. Patient's recommended to undergo a Lexiscan stress test on Wednesday. Will be based on these findings and patient's clinical course. DNP note has been reviewed, I agree with a documented findings and plan of care. Patient was seen and examined.
[2018-11-28 11:57] LABS: Glucose,Whole Blood 155 mg/dL (75-99)
[2018-11-28 13:13] LABS: Hemoglobin A1C 6.1 % (4.0-6.0)
[2018-11-28 15:03] LABS: Glucose,Whole Blood 137 mg/dL (75-99)
--- NOTE | 2018-11-28 15:57 | ECHOF ---
Referral Reason:chest pain MEASUREMENTS -------- HEIGHT: 167.6 cm WEIGHT: 107.0 kg BP: 151/84 IVSd: 1.4 cm (0.6 - 1.1) LVIDd: 4.8 cm (3.9 - 5.3) LVPWd: 1.4 cm (0.6 - 1.1) IVSs: 1.9 cm LVIDs: 2.9 cm LVPWs: 1.6 cm LA Diam: 4.1 cm (2.7 - 3.8) RVIDd: 3.1 cm (< 3.3) LAESV Index (A-L): 37.53 ml/m RAP: 5.00 mmHg RVSP: 22.70 mmHg FINDINGS -------- Sinus rhythm. Limited Study The left ventricular size is normal. There is moderate concentric left ventricular hypertrophy. O verall left ventricular systolic function is normal with, an EF between 55 - 60 %. LA is moderately dilated 34-39 ml/m2 3 ml of Lumason was utilized for enhancement of images. There is no pericardial effusion. CONCLUSIONS -------- 1. Sinus rhythm. 2. Limited Study 3. The left ventricular size is normal. 4. There is moderate concentric left ventricular hypertrophy. 5. Overall left ventricular systolic function is normal with, an EF between 55 - 60 %. 6. LA is moderately dilated 34-39 ml/m2 7. 3 ml of Lumason was utilized for enhancement of images. 8. There is no pericardial effusion. ELEMENTARY EDUCATION TUTOR: Lorraine Banegas RDCS
[2018-11-28] MEDS: WARFARIN 3 MG TAB PO SCH (16:53)
[2018-11-28 17:09] LABS: Glucose,Whole Blood 143 mg/dL (75-99)
[2018-11-28 21:04] LABS: Glucose,Whole Blood 143 mg/dL (75-99)
[2018-11-28] MEDS: PRAVASTATIN SODIUM 80 MG TAB PO SCH (21:04)
[2018-11-29 06:04] LABS: Glucose,Whole Blood 59 mg/dL (75-99)
[2018-11-29 06:04] LABS: Glucose,Whole Blood 63 mg/dL (75-99)
[2018-11-29] MEDS: INSULIN PUMP MEAL BOLUS 1 UNIT MISC MISCELLANE SCH ×4 (06:06→21:27)
[2018-11-29] MEDS: PANTOPRAZOLE 40 MG TABLET PO SCH (06:06)
[2018-11-29 06:20] LABS: Glucose,Whole Blood 53 mg/dL (75-99)
[2018-11-29 06:33] LABS: Glucose,Whole Blood 66 mg/dL (75-99)
[2018-11-29 06:48] LABS: Basophils # (A) 0.1 k/uL (0-0.2); Basophils % (A) 1 %; Eosinophils # (A) 0.2 k/uL (0-0.7); Eosinophils % (A) 3 %; HCT 37.3 % (34.0-46.0); Lymphocytes # (A) 1.3 k/uL (1.0-4.8); Lymphocytes % (A) 15 %; MCH 30.6 pg (25.0-35.0); MCHC 32.3 g/dL (31.0-37.0); MCV 94.7 fL (80.0-100.0); Mean Platelet Volume 8.7; Monocytes # (A) 0.8 k/uL (0-1.0); Monocytes % (A) 9 %; Neutrophils # (A) 6.1 k/uL (1.3-7.7); Neutrophils % (A) 71 %; Platelet Count 199 k/uL (150-450); RBC 3.93 m/uL (3.80-5.40); RDW 15.7 % (11.5-15.5); WBC 8.7 k/uL (3.8-10.6)
[2018-11-29 06:54] LABS: Glucose,Whole Blood 86 mg/dL (75-99)
[2018-11-29 07:14] LABS: Potassium 4.3 mmol/L (3.5-5.1)
[2018-11-29] MEDS: CALCITRIOL 0.25 MCG CAP PO SCH (08:15)
[2018-11-29] MEDS: ALLOPURINOL 100 MG TAB PO SCH (08:16)
[2018-11-29] MEDS: CYANOCOBALAMIN 500 MCG TAB PO SCH (08:16)
[2018-11-29] MEDS: FUROSEMIDE 40 MG TAB PO SCH (08:16)
[2018-11-29] MEDS: ASPIRIN 81 MG PO SCH (08:16)
[2018-11-29] MEDS: METOPROLOL TARTRATE 25 MG TAB PO SCH ×2 (08:16→20:39)
[2018-11-29 11:23] LABS: Glucose,Whole Blood 171 mg/dL (75-99)
[2018-11-29] MEDS ORDERED: DOBUTamine DRIP for NUC MED 500 MG in DEXTROSE/WATER 1 250ML.BAG IV ONE (15:19)
--- NOTE | 2018-11-29 15:21 | P.PN ---
Subjective Principal diagnosis: Patient is doing well. She has not had any further chest discomfort no dizziness lightheadedness palpitations On examination blood pressure is 112/68 mmHg pulse rate in the 50s afebrile Breath sounds are clear no rhonchi no crackles Heart sounds are normal no murmurs gallop or rub 70s warm no edema Impression Patient will chest discomfort with borderline troponins written a 3.1 and a very low magnesium (A1c 6.1 Suggest 2-D echo and Doppler study Dobutamine stress echo tomorrow Objective - Vital Signs Vital signs: Vital Signs Temp 97.7 F 11/29/18 11:25 Pulse 55 L 11/29/18 11:25 Resp 18 11/29/18 11:25 BP 112/68 11/29/18 11:25 Pulse Ox 95 11/29/18 11:25 Intake & Output 11/28/18 11/29/18 11/29/18 18:59 06:59 18:59 Intake Total 560 520 Balance 560 520 Intake: Intake, IV Titration 200 Amount Magnesium Sulfate-D5w Pmx 200 1 gm In Dextrose/Water 1 100ml.bag @ 100 mls/hr IVPB Q1H [facility] Rx#: [id number] Oral 360 520 Other: Voiding Method Toilet # Voids 2 3 - Labs CBC & Chem 7: 11/29/18 06:14 11/29/18 06:14 Labs: Abnormal Lab Results - Last 24 Hours (Table) 11/28/18 11/28/18 11/29/18 Range/Units 16:49 21:03 06:02 RDW (11.5-15.5) % Chloride (98-107) mmol/L Carbon Dioxide (22-30) mmol/L BUN (7-17) mg/dL Creatinine (0.52-1.04) mg/dL Glucose (74-99) mg/dL POC Glucose (mg/dL) 143 H 143 H 59 L (75-99) mg/dL 11/29/18 11/29/18 11/29/18 Range/Units 06:03 06:14 06:14 RDW 15.7 H (11.5-15.5) % Chloride 96 L (98-107) mmol/L Carbon Dioxide 32 H (22-30) mmol/L BUN 29 H (7-17) mg/dL Creatinine 3.13 H (0.52-1.04) mg/dL Glucose 61 L (74-99) mg/dL POC Glucose (mg/dL) 63 L (75-99) mg/dL 11/29/18 11/29/18 11/29/18 Range/Units 06:19 06:33 11:22 RDW (11.5-15.5) % Chloride (98-107) mmol/L Carbon Dioxide (22-30) mmol/L BUN (7-17) mg/dL Creatinine (0.52-1.04) mg/dL Glucose (74-99) mg/dL POC Glucose (mg/dL) 53 L 66 L 171 H (75-99) mg/dL
[2018-11-29 16:37] LABS: Glucose,Whole Blood 189 mg/dL (75-99)
[2018-11-29] MEDS: WARFARIN 3 MG TAB PO SCH (17:46)
--- NOTE | 2018-11-29 20:17 | P.PN ---
Subjective Progress Note Date: 11/28/18 Progress note being dictated for Dr. Alvarez. Interval history: This a 63-year-old female admitted with chest pain, possible unstable angina, possible acute non-STEMI with elevated troponin of 0.040, acute on chronic renal failure and multiple other medical issues. Evaluated by cardiology, recommendations noted; maximizing medical therapy with stress test on Wednesday. Renal function improving, creatinine 2.81. Receiving supplements, magnesium 1.5. Denies chest pain, palpitations or increased shortness of breath. Denies lightheadedness dizziness or focal deficits. Echocardiogram limited study, reporting moderate concentric left ventricular hypertrophy, normal EF 55-60%, moderately dilated LA. hemoglobin A1c 6.1 Objective - Vital Signs Vital signs: Vital Signs Temp 98.1 F 11/28/18 08:05 Pulse 81 11/28/18 16:00 Resp 17 11/28/18 16:00 BP 142/102 11/28/18 16:00 Pulse Ox 98 11/28/18 16:00 Intake & Output 11/28/18 11/28/18 11/29/18 06:59 18:59 06:59 Intake Total 480 560 Balance 480 560 Intake: Intake, IV Titration 200 Amount Magnesium Sulfate-D5w Pmx 200 1 gm In Dextrose/Water 1 100ml.bag @ 100 mls/hr IVPB Q1H [facility] Rx#: [id number] Oral 480 360 Other: Voiding Method Toilet # Voids 2 - Exam PHYSICAL EXAM: VITAL SIGNS: As above GENERAL: Sitting up in bed, no acute distress HEENT: Conjunctivae normal. Oral mucosa moist NECK: No JVD. No thyroid enlargement. No LNs CARDIOVASCULAR: S1, S2 muffled. No murmur RESPIRATION: Breath sounds diminished in the bases. Occasional scattered rhonchi, no crackles. ABDOMEN: Soft, nontender . No guarding. no masses palpable. Bowel sounds heard. LEGS: No edema. no swelling PSYCHIATRY: Alert and oriented -3, mood and affect normal. NERVOUS SYSTEM: Cranial N 2-12 grossly normal. Moves all 4 limbs. Diffuse weakness No focal deficits. Skin: no rash - Labs CBC & Chem 7: 11/29/18 06:14 11/29/18 06:14 Labs: Abnormal Lab Results - Last 24 Hours (Table) 11/27/18 11/27/18 11/28/18 Range/Units 08:20 20:29 05:40 RBC (3.80-5.40) m/uL Hgb (11.4-16.0) gm/dL RDW (11.5-15.5) % PT (9.0-12.0) sec INR (<1.2) Chloride (98-107) mmol/L Carbon Dioxide (22-30) mmol/L BUN (7-17) mg/dL Creatinine (0.52-1.04) mg/dL Glucose (74-99) mg/dL POC Glucose (mg/dL) 196 H 155 H (75-99) mg/dL Hemoglobin A1c 6.1 H (4.0-6.0) % Magnesium (1.6-2.3) mg/dL 11/28/18 11/28/18 11/28/18 Range/Units 05:56 05:56 08:44 RBC 3.71 L (3.80-5.40) m/uL Hgb 11.3 L (11.4-16.0) gm/dL RDW 15.8 H (11.5-15.5) % PT 21.5 H (9.0-12.0) sec INR 2.2 H (<1.2) Chloride 95 L (98-107) mmol/L Carbon Dioxide 32 H (22-30) mmol/L BUN 24 H (7-17) mg/dL Creatinine 2.81 H (0.52-1.04) mg/dL Glucose 158 H (74-99) mg/dL POC Glucose (mg/dL) (75-99) mg/dL Hemoglobin A1c (4.0-6.0) % Magnesium 1.5 L (1.6-2.3) mg/dL 11/28/18 11/28/18 11/28/18 Range/Units 11:36 14:43 16:49 RBC (3.80-5.40) m/uL Hgb (11.4-16.0) gm/dL RDW (11.5-15.5) % PT (9.0-12.0) sec INR (<1.2) Chloride (98-107) mmol/L Carbon Dioxide (22-30) mmol/L BUN (7-17) mg/dL Creatinine (0.52-1.04) mg/dL Glucose (74-99) mg/dL POC Glucose (mg/dL) 155 H 137 H 143 H (75-99) mg/dL Hemoglobin A1c (4.0-6.0) % Magnesium (1.6-2.3) mg/dL Assessment and Plan Assessment: -Chest pain, possible unstable angina, possible acute non-STEMI -Troponin 0.040 -Acute on chronic renal failure -Hypomagnesemia -CAD -Diabetes mellitus type 2 -History of DVT, PE -Hypertension -Hyperlipidemia Plan: Continue on current medication regime , antiplatelet agents , beta laureano , monitoring and symptomatic treatment. Follow closely with cardiology, stress test planned for Wednesday. Close monitoring of renal function, electrolytes and blood sugars; repeat labs ordered for a.m. Further recommendations to follow. The impression and plan of care has been dictated as directed. : I performed a history and examination of this patient, discussed the same with the dictator. I agree with the dictator's note ,documented as a scribe. Any additional findings or plans will be noted.
--- NOTE | 2018-11-29 20:20 | P.PN ---
Subjective Progress Note Date: 11/29/18 Progress note being dictated for Dr. Alvarez. Interval history: This a 63-year-old female admitted with chest pain, possible unstable angina, possible acute non-STEMI with elevated troponin of 0.040, acute on chronic renal failure and multiple other medical issues. Evaluated by cardiology, recommendations noted; maximizing medical therapy with stress test on Wednesday. Renal function improving, creatinine 2.81. Receiving supplements, magnesium 1.5. Denies chest pain, palpitations or increased shortness of breath. Denies lightheadedness dizziness or focal deficits. Echocardiogram limited study, reporting moderate concentric left ventricular hypertrophy, normal EF 55-60%, moderately dilated LA. hemoglobin A1c 6.1 11/29/18 no further chest pain, palpitations. Upset over some personal issues with her brother. Denies lightheadedness dizziness or focal deficits. Afebrile. Blood sugars controlled. Creatinine 3.13. Magnesium 2.Scheduled for dobutamine stress echo tomorrow with cardiology. Objective - Vital Signs Vital signs: Vital Signs Temp 98.2 F 11/29/18 15:44 Pulse 53 L 11/29/18 15:44 Resp 18 11/29/18 15:44 BP 103/64 11/29/18 15:44 Pulse Ox 94 L 11/29/18 15:44 Intake & Output 11/29/18 11/29/18 11/30/18 06:59 18:59 06:59 Intake Total 640 Balance 640 Intake: Oral 640 Other: Voiding Method Toilet # Voids 2 3 - Labs CBC & Chem 7: 11/29/18 06:14 11/29/18 06:14 Labs: Abnormal Lab Results - Last 24 Hours (Table) 11/28/18 11/29/18 11/29/18 Range/Units 21:03 06:02 06:03 RDW (11.5-15.5) % Chloride (98-107) mmol/L Carbon Dioxide (22-30) mmol/L BUN (7-17) mg/dL Creatinine (0.52-1.04) mg/dL Glucose (74-99) mg/dL POC Glucose (mg/dL) 143 H 59 L 63 L (75-99) mg/dL 11/29/18 11/29/18 11/29/18 Range/Units 06:14 06:14 06:19 RDW 15.7 H (11.5-15.5) % Chloride 96 L (98-107) mmol/L Carbon Dioxide 32 H (22-30) mmol/L BUN 29 H (7-17) mg/dL Creatinine 3.13 H (0.52-1.04) mg/dL Glucose 61 L (74-99) mg/dL POC Glucose (mg/dL) 53 L (75-99) mg/dL 11/29/18 11/29/18 11/29/18 Range/Units 06:33 11:22 16:26 RDW (11.5-15.5) % Chloride (98-107) mmol/L Carbon Dioxide (22-30) mmol/L BUN (7-17) mg/dL Creatinine (0.52-1.04) mg/dL Glucose (74-99) mg/dL POC Glucose (mg/dL) 66 L 171 H 189 H (75-99) mg/dL Assessment and Plan Assessment: -Chest pain, possible unstable angina, possible acute non-STEMI -Troponin 0.040 -Acute on chronic renal failure -Hypomagnesemia -CAD -Diabetes mellitus type 2 -History of DVT, PE -Hypertension -Hyperlipidemia Plan: Continue on current medication regime , monitoring and symptomatic treatment. Continue on antiplatelet, beta laureano as per cardiology. Stress echo tomorrow. Close monitoring of renal function, electrolytes with repeat labs ordered for a.m. follow closely with cardiology. Further recommendations to follow. The impression and plan of care has been dictated as directed. : I performed a history and examination of this patient, discussed the same with the dictator. I agree with the dictator's note ,documented as a scribe. Any additional findings or plans will be noted.
[2018-11-29] MEDS: PRAVASTATIN SODIUM 80 MG TAB PO SCH (20:39)
[2018-11-29 20:59] LABS: Glucose,Whole Blood 35 mg/dL (75-99)
[2018-11-29 21:26] LABS: Glucose,Whole Blood 34 mg/dL (75-99)
[2018-11-29] MEDS ORDERED: DEXTROSE 50%-WATER 50 ML SYRINGE IVP ONE (21:26)
[2018-11-29 21:59] LABS: Glucose,Whole Blood 204 mg/dL (75-99)
[2018-11-30 02:07] LABS: Glucose,Whole Blood 327 mg/dL (75-99)
[2018-11-30 06:16] LABS: Glucose,Whole Blood 327 mg/dL (75-99)
[2018-11-30] MEDS: PANTOPRAZOLE 40 MG TABLET PO SCH (06:39)
[2018-11-30] MEDS: INSULIN PUMP MEAL BOLUS 1 UNIT MISC MISCELLANE SCH ×4 (06:48→21:19)
[2018-11-30 07:18] LABS: Basophils % (A) 1 %; Eosinophils # (A) 0.1 k/uL (0-0.7); Eosinophils % (A) 2 %; HCT 34.6 % (34.0-46.0); HGB 11.4 gm/dL (11.4-16.0); Lymphocytes # (A) 1.1 k/uL (1.0-4.8); Lymphocytes % (A) 17 %; MCH 31.4 pg (25.0-35.0); Mean Platelet Volume 8.6; Monocytes # (A) 0.6 k/uL (0-1.0); Monocytes % (A) 10 %; Neutrophils # (A) 4.2 k/uL (1.3-7.7); Neutrophils % (A) 66 %; Platelet Count 148 k/uL (150-450); RBC 3.64 m/uL (3.80-5.40); RDW 15.9 % (11.5-15.5); WBC 6.3 k/uL (3.8-10.6)
[2018-11-30 07:23] LABS: INR 2.7 (<1.2); Prothrombin Time 25.8 sec (9.0-12.0)
[2018-11-30 07:28] LABS: Potassium 4.9 mmol/L (3.5-5.1)
[2018-11-30] MEDS ORDERED: REGADENOSON 0.4 MG/5 ML SYRINGE IV ONE (09:27)
[2018-11-30] MEDS ORDERED: CAFFEINE CITRATE 60 MG/3 ML VIAL IV PRN (09:27)
[2018-11-30 12:06] LABS: Glucose,Whole Blood 210 mg/dL (75-99)
[2018-11-30] MEDS ORDERED: INSULIN PUMP ACTIVE INSULIN 1 EACH MISC MISCELLANE PRN (12:08)
[2018-11-30] MEDS ORDERED: INSULIN PUMP TARGET GLUCOSE 1 EACH MISC MISCELLANE PRN (12:08)
[2018-11-30] MEDS: CYANOCOBALAMIN 500 MCG TAB PO SCH (12:28)
[2018-11-30] MEDS: ASPIRIN 81 MG PO SCH (12:28)
[2018-11-30] MEDS: CALCITRIOL 0.25 MCG CAP PO SCH (12:28)
[2018-11-30] MEDS: METOPROLOL TARTRATE 25 MG TAB PO SCH ×2 (12:28→21:27)
[2018-11-30] MEDS: FUROSEMIDE 40 MG TAB PO SCH (12:28)
[2018-11-30] MEDS: ALLOPURINOL 100 MG TAB PO SCH (12:29)
[2018-11-30 13:07] LABS: Glucose,Whole Blood 188 mg/dL (75-99)
--- NOTE | 2018-11-30 14:00 | ECHOS ---
STRESS ECHOCARDIOGRAM INDICATIONS: Chest pain and hypertension. BASELINE HEART RATE: 61 BASELINE BLOOD PRESSURE: 129/60 MAXIMUM HEART RATE: 137 MAXIMUM BLOOD PRESSURE: 124/89 85% MPHR: 132 100% MPHR: 153 MAXIMUM STAGE REACHED: 4 TOTAL EXERCISE TIME: 11:00 CLINICAL INFORMATION: A dobutamine stress echocardiographic study was performed. Peak heart rate of 137 was achieved, maximum blood pressure of 124/89 mmHg was noted. Resting EKG shows normal sinus rhythm with normal AR interval and QRS duration and normal ST-T waves. No ST- segment depression suggestive of ischemia is noted. Occasional PVCs were noted. The baseline echocardiographic images reveal normal left ventricular chamber size with normal left ventricular systolic function at the peak dose of dobutamine infusion. Normal increase in the wall thickness and contractility is noted. FINAL IMPRESSION: 1. This dobutamine stress echocardiographic study is negative for stress-induced ischemia. 2. EKG portion of the stress test is not suggestive of ischemia. 3. Occasional premature ventricular contractions are noted. MMODL / IJN: [id number] / [facility]
--- NOTE | 2018-11-30 14:20 | P.NPCON ---
History of Present Illness - Reason for Consult acute renal failure, chronic renal failure - History of Present Illness Reason for consultation: Acute kidney injury on chronic kidney disease History of present illness: Patient is a 63-year-old female seen in consultation for acute kidney injury on chronic kidney disease. Patient has chronic kidney disease stage IV secondary to nephrosclerosis with baseline creatinine in the range of 2.5-3. She is noted to have atrophic kidneys. Patient presented to the hospital for chest pain. She underwent dobutamine stress echocardiogram today which was negative for stress-induced ischemia. Admits to good urine output. No hematuria or dysuria. Denies use of NSAIDs. No vomiting or diarrhea. Hemodynamically stable. Echocardiogram revealed preserved ejection fraction. She does have history of diabetes mellitus. Urinalysis is noted to be benign. Vital signs are stable. General: The patient appeared well nourished and normally developed. HEENT: Head exam is unremarkable. Neck is without jugular venous distension. LUNGS: Lungs are clear to auscultation and percussion. Breath sounds decreased. HEART: Rate and Rhythm are regular. First and second heart sounds normal. No murmurs, rubs or gallops. ABDOMEN: Abdominal exam reveals normal bowel sounds. Non-tender and non- distended. No evidence of peritonitis. EXTREMITITES: No clubbing, cyanosis, or edema. Past Medical History Past Medical History: Coronary Artery Disease (CAD), Diabetes Mellitus, Deep Vein Thrombosis (DVT), Hyperlipidemia, Hypertension, Pulmonary Embolus (PE), Renal Disease Additional Past Medical History / Comment(s): Vitamin D Deficency, pt has insulin pump, elevated liver enzymes History of Any Multi-Drug Resistant Organisms: None Reported Past Surgical History: Appendectomy, Cholecystectomy Additional Past Surgical History / Comment(s): Breast Biopsy, Carapal tunnel to right hand, Heart Catherization, colonoscopy 08/2014 Past Anesthesia/Blood Transfusion Reactions: No Reported Reaction Past Psychological History: No Psychological Hx Reported Smoking Status: Never smoker Past Alcohol Use History: Occasional Past Drug Use History: None Reported - Past Family History Mother Family Medical History: No Reported History Additional Family Medical History / Comment(s): heart disease Father Additional Family Medical History / Comment(s): heart disease Medications and Allergies Home Medications Medication Instructions Recorded Confirmed Type Ergocalciferol (Vitamin D2) 50,000 unit PO SA 07/13/16 11/26/18 History [Drisdol] Calcitriol 0.5 mcg PO MOTUWETHFR 07/19/17 11/26/18 History Insulin Aspart (For Pump) [NovoLOG 0.01 unit SQ-PUMP CONTINUOUS 05/13/18 History (For Pump)] Allopurinol [Zyloprim] 100 mg PO DAILY 11/16/18 11/26/18 History Cyanocobalamin (Vitamin B-12) 500 mcg PO DAILY 11/16/18 11/26/18 History [Vitamin B-12] Pravastatin Sodium [Pravachol] 40 mg PO HS 11/16/18 11/26/18 History Warfarin [Coumadin] 6 mg PO DAILY tab 11/21/18 11/26/18 Rx Furosemide [Lasix] 40 mg PO DAILY 11/26/18 11/26/18 History Allergies Allergy/AdvReac Type Severity Reaction Status Date / Time azithromycin Allergy Unknown Rash/Hives Verified 11/26/18 21:13 amoxicillin Allergy Rash/Hives Verified 11/26/18 21:13 Physical Exam Vitals: Vital Signs Temp Pulse Resp BP Pulse Ox 11/30/18 12:00 71 16 129/61 11/30/18 08:00 74 16 160/66 11/30/18 04:00 98 F 60 17 110/60 93 L 11/29/18 23:40 56 L 17 11/29/18 23:37 97.6 F 56 L 17 103/65 92 L 11/29/18 20:00 97.2 F L 61 17 113/56 95 11/29/18 15:44 98.2 F 53 L 18 103/64 94 L Intake and Output 11/29/18 11/30/18 11/30/18 22:59 06:59 14:59 Intake Total 520 400 0 Balance 520 400 0 Intake: Oral 520 400 0 Other: Voiding Method Toilet Toilet Toilet # Voids 3 Weight 105.4 kg Results - Lab Results Most recent lab results Calcium 9.0 mg/dL (8.4-10.2) 11/30/18 06:41 Magnesium 2.0 mg/dL (1.6-2.3) 11/29/18 06:14 11/30/18 06:41 11/30/18 06:41 Assessment and Plan Plan: Assessment: 1. Chronic kidney disease stage IV secondary to nephrosclerosis with baseline creatinine in the range of 2.5-3. 2. Diastolic CHF. 3. Hypertension with chronic kidney disease. 4. Hypertonic hyponatremia. Corrected sodium is near 135. 5. Diabetes mellitus. 6. Chronic kidney disease mineral bone disease maintained on calcitriol. 7. Chest pain. Cardiology following. Dobutamine stress echo was negative. Plan: Avoid nephrotoxins. No urgency for renal replacement therapy at this time. Tight blood sugar control. Repeat electrolytes in the morning. Thank you for the consultation. I will continue to follow the patient with you during her hospital stay.
--- NOTE | 2018-11-30 14:47 | P.PN ---
Subjective Progress Note Date: 11/30/18 This is 63-year-old female who presented to the hospital with symptoms of chest discomfort, she has known chronic kidney disease, hypertension , diabetes, hyperlipidemia, she was seen in consultation yesterday by Dr. Schuster. The recommendation was to continue maximal medical therapy at this point, the risk of proceeding with cardiac catheterization put the patient at high risk for dialysis. We will perform a Lexiscan stress test on Wednesday. Patient was seen and examined this morning, denied any chest pain. Breathing is stable. She was initially refusing to take her aspirin and beta laureano, she has agreed now to take them. Blood pressure 104/60 with a heart rate in the 60s, 92% on room air. White blood cell count 6.2, hemoglobin 11.3, platelet count 202. INR 2.2. Sodium 137, potassium 3.7, BUN 24, creatinine 2.8. Magnesium 1.5. Plan of care was discussed with the patient in detail, she denies any chest discomfort this morning in breathing is stable. 11/30/2018 Patient was seen and examined this morning, denied any chest pain or difficulty in breathing. She underwent a dobutamine echocardiographic study today which was negative for any reversible ischemia. I pressure 128/60 with a heart rate in the 70s. Sodium 131, potassium 4.9, BUN 8 BUN 32 and creatinine 3.1. INr 2.7 Objective - Vital Signs Vital signs: Vital Signs Temp 98 F 11/30/18 04:00 Pulse 71 11/30/18 12:00 Resp 16 11/30/18 12:00 BP 129/61 11/30/18 12:00 Pulse Ox 93 L 11/30/18 04:00 Intake & Output 11/29/18 11/30/18 11/30/18 18:59 06:59 18:59 Intake Total 640 800 0 Balance 640 800 0 Weight 105.4 kg Intake: Oral 640 800 0 Other: Voiding Method Toilet Toilet # Voids 3 3 - Exam PHYSICAL EXAMINATION: GENERAL: 63-year-old female in no acute distress at the time of my examination HEENT: Head is atraumatic, normocephalic. Pupils equal, round. Sclera anicteric. Conjunctiva are clear. Mucous membranes of the mouth are moist. Neck is supple. There is no elevated jugular venous pressure. No carotid bruit is heard. HEART EXAMINATION: Heart S1, S2 normal. No murmur or gallop heard. CHEST EXAMINATION: Lungs are clear to auscultation and precussion. No chest wall tenderness is noted on palpation or with deep breathing. ABDOMEN: Soft, nontender. Bowel sounds are heard. No organomegaly noted. EXTREMITIES: 2+ peripheral pulses with no evidence of peripheral edema and no calf tenderness noted. NEUROLOGIC patient is awake, alert and oriented 3 . . - Labs CBC & Chem 7: 11/30/18 06:41 11/30/18 06:41 Labs: Abnormal Lab Results - Last 24 Hours (Table) 11/29/18 11/29/18 11/29/18 Range/Units 16:26 20:55 21:23 RBC (3.80-5.40) m/uL RDW (11.5-15.5) % Plt Count (150-450) k/uL PT (9.0-12.0) sec INR (<1.2) Sodium (137-145) mmol/L Chloride (98-107) mmol/L Carbon Dioxide (22-30) mmol/L BUN (7-17) mg/dL Creatinine (0.52-1.04) mg/dL Glucose (74-99) mg/dL POC Glucose (mg/dL) 189 H 35 L 34 L (75-99) mg/dL 11/29/18 11/30/18 11/30/18 Range/Units 21:49 02:05 06:14 RBC (3.80-5.40) m/uL RDW (11.5-15.5) % Plt Count (150-450) k/uL PT (9.0-12.0) sec INR (<1.2) Sodium (137-145) mmol/L Chloride (98-107) mmol/L Carbon Dioxide (22-30) mmol/L BUN (7-17) mg/dL Creatinine (0.52-1.04) mg/dL Glucose (74-99) mg/dL POC Glucose (mg/dL) 204 H 327 H 327 H (75-99) mg/dL 11/30/18 11/30/18 11/30/18 Range/Units 06:41 06:41 06:41 RBC 3.64 L (3.80-5.40) m/uL RDW 15.9 H (11.5-15.5) % Plt Count 148 L (150-450) k/uL PT 25.8 H (9.0-12.0) sec INR 2.7 H (<1.2) Sodium 131 L (137-145) mmol/L Chloride 87 L (98-107) mmol/L Carbon Dioxide 32 H (22-30) mmol/L BUN 32 H (7-17) mg/dL Creatinine 3.10 H (0.52-1.04) mg/dL Glucose 342 H (74-99) mg/dL POC Glucose (mg/dL) (75-99) mg/dL 11/30/18 11/30/18 Range/Units 12:04 12:47 RBC (3.80-5.40) m/uL RDW (11.5-15.5) % Plt Count (150-450) k/uL PT (9.0-12.0) sec INR (<1.2) Sodium (137-145) mmol/L Chloride (98-107) mmol/L Carbon Dioxide (22-30) mmol/L BUN (7-17) mg/dL Creatinine (0.52-1.04) mg/dL Glucose (74-99) mg/dL POC Glucose (mg/dL) 210 H 188 H (75-99) mg/dL Assessment and Plan Plan: Assessment and plan #1 chest discomfort, suggestive of possible non-Q-wave myocardial infarction #2 hypertension #3 diabetes #4 hyperlipidemia #5 chronic kidney disease Plan We will continue the patient on her current medications. She may be able to be discharged from our perspective. We'll make a follow-up appointment in the office post discharge. DNP note has been reviewed, I agree with a documented findings and plan of care. Patient was seen and examined.
[2018-11-30 17:03] LABS: Glucose,Whole Blood 82 mg/dL (75-99)
[2018-11-30] MEDS: WARFARIN 3 MG TAB PO SCH (17:31)
[2018-11-30 19:30] LABS: Glucose,Whole Blood 145 mg/dL (75-99)
[2018-11-30] MEDS: PRAVASTATIN SODIUM 80 MG TAB PO SCH (20:26)
[2018-11-30 20:55] LABS: Glucose,Whole Blood 234 mg/dL (75-99)
[2018-12-01 03:21] LABS: Glucose,Whole Blood 156 mg/dL (75-99)
[2018-12-01 05:46] LABS: Glucose,Whole Blood 200 mg/dL (75-99)
[2018-12-01] MEDS ORDERED: SODIUM CHLORIDE 0.9% 1,000 ML IV ONE (06:07)
[2018-12-01] MEDS: INSULIN PUMP MEAL BOLUS 1 UNIT MISC MISCELLANE SCH ×2 (06:50→12:50)
[2018-12-01] MEDS: PANTOPRAZOLE 40 MG TABLET PO SCH (06:53)
[2018-12-01 06:56] LABS: Basophils % (A) 0 %; Eosinophils # (A) 0.1 k/uL (0-0.7); Eosinophils % (A) 1 %; HCT 36.7 % (34.0-46.0); HGB 12.1 gm/dL (11.4-16.0); Lymphocytes # (A) 1.1 k/uL (1.0-4.8); Lymphocytes % (A) 12 %; MCH 30.9 pg (25.0-35.0); MCV 93.7 fL (80.0-100.0); Mean Platelet Volume 9.3; Monocytes # (A) 1.1 k/uL (0-1.0); Monocytes % (A) 12 %; Neutrophils # (A) 6.5 k/uL (1.3-7.7); Neutrophils % (A) 72 %; Platelet Count 193 k/uL (150-450); RBC 3.91 m/uL (3.80-5.40); RDW 15.8 % (11.5-15.5); WBC 9.1 k/uL (3.8-10.6)
[2018-12-01 07:04] LABS: INR 2.7 (<1.2); Prothrombin Time 26.5 sec (9.0-12.0)
[2018-12-01 07:14] LABS: Calcium 9.3 mg/dL (8.4-10.2)
[2018-12-01 07:16] LABS: Potassium 4.2 mmol/L (3.5-5.1)
--- NOTE | 2018-12-01 08:02 | XR ---
EXAMINATION TYPE: XR Hip LT and AP Pelvis DATE OF EXAM: 12/01/2018 COMPARISON: NONE HISTORY: Left hip pain after a fall TECHNIQUE: A single AP view of the pelvis is obtained. Two views of the left hip are obtained. FINDINGS: There is no acute fracture/dislocation evident in the pelvis. The hip and sacroiliac join ts demonstrate mild degenerative change symmetrically. The overlying soft tissue appears unremarkabl e. Two views of left hip show no acute fracture or dislocation. No focal lytic or sclerotic lesion seen in the proximal left femur. The overlying soft tissue is unremarkable. IMPRESSION: There is no acute fracture or dislocation in the pelvis or left hip.
[2018-12-01] MEDS: ASPIRIN 81 MG PO SCH (09:26)
[2018-12-01] MEDS: CALCITRIOL 0.25 MCG CAP PO SCH (09:26)
[2018-12-01] MEDS: CYANOCOBALAMIN 500 MCG TAB PO SCH (09:27)
[2018-12-01] MEDS: ALLOPURINOL 100 MG TAB PO SCH (09:27)
[2018-12-01] MEDS ORDERED: FLUDROCORTISONE 0.1 MG TAB PO SCH (10:30)
[2018-12-01] MEDS: SODIUM CHLORIDE 0.9% 1,000 ML IV SCH (10:30)
[2018-12-01] MEDS: FUROSEMIDE 40 MG TAB PO SCH (10:36)
[2018-12-01] MEDS: METOPROLOL TARTRATE 25 MG TAB PO SCH ×2 (10:36→21:30)
[2018-12-01 11:33] LABS: Glucose,Whole Blood 224 mg/dL (75-99)
--- NOTE | 2018-12-01 12:12 | P.PN ---
Subjective Patient is seen in follow-up for acute kidney injury on chronic kidney disease. Patient has chronic kidney disease stage IV secondary to nephrosclerosis with baseline creatinine in the range of 2.5-3. Patient is noted to have atrophic kidneys. Currently resting in bed. She is quite sleepy. No active chest pain or shortness of breath. Last night the patient sustained a fall and was noted to be orthostatic. She is currently maintained on normal saline at 50 mL an hour. Vital signs are stable. General: The patient appeared well nourished and normally developed. HEENT: Head exam is unremarkable. Neck is without jugular venous distension. LUNGS: Lungs are clear to auscultation and percussion. Breath sounds decreased. HEART: Rate and Rhythm are regular. First and second heart sounds normal. No murmurs, rubs or gallops. ABDOMEN: Abdominal exam reveals normal bowel sounds. Non-tender and non- distended. No evidence of peritonitis. EXTREMITITES: No clubbing, cyanosis, or edema. Objective - Vital Signs Vital signs: Vital Signs Temp 97.2 F L 12/01/18 11:10 Pulse 71 12/01/18 11:15 Resp 17 12/01/18 11:15 BP 137/63 12/01/18 11:10 Pulse Ox 93 L 12/01/18 11:10 Intake & Output 11/30/18 12/01/18 12/01/18 18:59 06:59 18:59 Intake Total 0 1325 200 Balance 0 1325 200 Weight 102.8 kg Intake: IV 20 Invasive Line 3 20 Oral 0 1325 180 Other: Voiding Method Toilet Toilet Toilet # Voids 3 - Labs CBC & Chem 7: 12/01/18 06:30 12/01/18 06:30 Labs: Abnormal Lab Results - Last 24 Hours (Table) 11/30/18 11/30/18 11/30/18 Range/Units 12:47 19:29 20:54 RDW (11.5-15.5) % Monocytes # (0-1.0) k/uL PT (9.0-12.0) sec INR (<1.2) Sodium (137-145) mmol/L Chloride (98-107) mmol/L Carbon Dioxide (22-30) mmol/L BUN (7-17) mg/dL Creatinine (0.52-1.04) mg/dL Glucose (74-99) mg/dL POC Glucose (mg/dL) 188 H 145 H 234 H (75-99) mg/dL 12/01/18 12/01/18 12/01/18 Range/Units 03:10 05:44 06:30 RDW 15.8 H (11.5-15.5) % Monocytes # 1.1 H (0-1.0) k/uL PT (9.0-12.0) sec INR (<1.2) Sodium (137-145) mmol/L Chloride (98-107) mmol/L Carbon Dioxide (22-30) mmol/L BUN (7-17) mg/dL Creatinine (0.52-1.04) mg/dL Glucose (74-99) mg/dL POC Glucose (mg/dL) 156 H 200 H (75-99) mg/dL 12/01/18 12/01/18 12/01/18 Range/Units 06:30 06:30 11:32 RDW (11.5-15.5) % Monocytes # (0-1.0) k/uL PT 26.5 H (9.0-12.0) sec INR 2.7 H (<1.2) Sodium 136 L (137-145) mmol/L Chloride 91 L (98-107) mmol/L Carbon Dioxide 33 H (22-30) mmol/L BUN 35 H (7-17) mg/dL Creatinine 2.98 H (0.52-1.04) mg/dL Glucose 189 H (74-99) mg/dL POC Glucose (mg/dL) 224 H (75-99) mg/dL Assessment and Plan Plan: Assessment: 1. Chronic kidney disease stage IV secondary to nephrosclerosis with baseline creatinine in the range of 2.5-3. Renal function a little better today. 2. Diastolic CHF. 3. Hypertension with chronic kidney disease. Patient noticed to be orthostatic. 4. Hypertonic hyponatremia. Better. 5. Diabetes mellitus. 6. Chronic kidney disease mineral bone disease maintained on calcitriol. 7. Chest pain. Cardiology following. Dobutamine stress echo was negative. 8. Orthostatic hypotension started on Florinef. Plan: Avoid nephrotoxins. Tight blood sugar control. Repeat electrolytes in the morning. Hold Lasix. Maintain normal saline at 50 mL an hour for the next 24 hours. No urgency for renal replacement therapy at this time.
[2018-12-01] MEDS: FLUDROCORTISONE 0.1 MG TAB PO SCH (12:47)
--- NOTE | 2018-12-01 13:53 | P.CN ---
Psychiatric Consult - . Consult date: 12/01/18 Consult:: 12/01/18 13:18 Hallucinations versus delirium Assessment and Plan Assessment: cc:Patient is reported talking to individuals who are not present in room.Patient removed her insulin pump and insist she is having surgery despite no surgery scheduled. Client refused psychiatric consult HPI:63-year-old female presents emergency Department chief complaint of chest pain. Patient complains of centralized chest pain nonradiating. Patient states that this started approximately 3-4 hours prior arrival. Patient states that she has had no prior cardiac events though she has a history of hyperlipidemia, diabetes, hypertension. Patient states that she has no associated shortness of breath no recent URI symptoms. Patient states that this pain is different from that she's had in the past. Patient was recent hospital for hyperglycemia. Patient denies any other associated symptoms. - Related Data Home Medications Medication Instructions Recorded Confirmed Ergocalciferol (Vitamin D2) 50,000 unit PO SA 07/13/16 11/26/18 [Drisdol] Calcitriol 0.5 mcg PO MOTUWETHFR 07/19/17 11/26/18 Insulin Aspart (For Pump) [NovoLOG 0.01 unit SQ-PUMP CONTINUOUS 05/13/18 (For Pump)] Allopurinol [Zyloprim] 100 mg PO DAILY 11/16/18 11/26/18 Cyanocobalamin (Vitamin B-12) 500 mcg PO DAILY 11/16/18 11/26/18 [Vitamin B-12] Pravastatin Sodium [Pravachol] 40 mg PO HS 11/16/18 11/26/18 Furosemide [Lasix] 40 mg PO DAILY 11/26/18 11/26/18 Previous Rx's Medication Instructions Recorded Warfarin [Coumadin] 6 mg PO DAILY tab 11/21/18 Allergies Allergy/AdvReac Type Severity Reaction Status Date / Time azithromycin Allergy Unknown Rash/Hives Verified 11/26/18 21:13 amoxicillin Allergy Rash/Hives Verified 11/26/18 21:13 - EKG Comments: EKG Findings:: EKG performed at 20:55 normal sinus rhythm with a rate of 78 MI 140 QRS 78 QT/QTC 422/455 Past Medical History Past Medical History: Coronary Artery Disease (CAD), Diabetes Mellitus, Deep Vein Thrombosis (DVT), Hyperlipidemia, Hypertension, Pulmonary Embolus (PE), Renal Disease Additional Past Medical History / Comment(s): Vitamin D Deficency, pt has insulin pump, elevated liver enzymes History of Any Multi-Drug Resistant Organisms: None Reported Past Surgical History: Appendectomy, Cholecystectomy Additional Past Surgical History / Comment(s): Breast Biopsy, Carapal tunnel to right hand, Heart Catherization, colonoscopy 08/2014 Past Anesthesia/Blood Transfusion Reactions: No Reported Reaction Past Psychological History: No Psychological Hx Reported Smoking Status: Never smoker Past Alcohol Use History: Occasional Past Drug Use History: None Reported - Past Family History Mother Family Medical History: No Reported History Additional Family Medical History / Comment(s): heart disease Father Additional Family Medical History / Comment(s): heart disease Past Psychiatric History: Patient denies any prior history of inpatient or outpatient psychiatric care and has never been on any psychotropic medication. Patient has no prior history of suicide attempts. She had one brief admission due to delirium and psychosis Past Medical/Surgical History: She has a history of diabetes, hypertension hyperlipidemia, DVT, CAD and is status post pulmonary embolism. She is also status post cholecystectomy and an appendectomy. She was being treated for biliary obstruction with sepsis on the medical floor. Social History: [Patient has never been and she has no children. She lives alone in a duplex reports that she has been caring for her activities of daily living without difficulty. 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 She resigned when her diabetes was diagnosed. Patient states that she then went to college and obtained a bachelor's degree. 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 Patient denies any prior history of abuse. She reports he has many supportive friends and is active at home and does drive her own car. Substance Use History: Patient denies any current or prior drug use and states that she has an occasional glass of wine and has never used alcohol to excess. Patient denies any prior tobacco use Legal History: Patient denies any legal history. Mental Status:Appearance/Attitude: Patient is dressed in a hospital gown and is found sleeping in bed but is easily awakened, she makes intermittent eye contact and is non cooperative.] Behavior: Patient does not exhibit any psychomotor agitation or retardation. Speech/Language: Patient's speech is spontaneous and of normal volume and rhythm . Thought Process: Patient is goal-directed and there is no evidence of circumstantial or tangential thought and no loose associations or flight of ideas. Thought Content: Patient denies any current auditory or visual hallucinations Suicidal/Homicidal Ideation: Patient denied any current suicidal or homicidal ideation. Sensorium/Cognition: Patient is alert and oriented to person, place, and time and her memory is grossly intact. Mood/Affect: Patient's mood is slightly guarded and her affect is appropriate. Intellectual Functioning: Patient's intellectual functioning appears average. Strength/Weaknesses: Patient has a good support system, stable housing, financial support/conflicted sibling relationship. Psychiatric impression: Delirium due to refusal I obtained as much information from the client as possible Psychiatric recommendation: risperiDONE [RisperDAL] 0.5 mg PO BID; there is no need for inpatient psychiatric care since his medical stability issue i.e. delirium and electrolytes being off they take up to several days to stabilize. Thank you for the consult Babak Cyr D.O. PhD] (1) Hallucinations, unspecified Current Visit: Yes Status: Acute Priority: Low Code(s): R44.3 - HALLUCINATIONS, UNSPECIFIED SNOMED Code(s): 7553175 Time with Patient: Less than 30
[2018-12-01 14:35] LABS: Glucose,Whole Blood 128 mg/dL (75-99)
[2018-12-01 16:29] LABS: Glucose,Whole Blood 108 mg/dL (75-99)
[2018-12-01] MEDS: INSULIN ASPART 100 UNIT/ML 1 ML 10 ML VIAL SQ SCH ×2 (17:01→21:30)
[2018-12-01 21:29] LABS: Glucose,Whole Blood 204 mg/dL (75-99)
[2018-12-01] MEDS: INSULIN DETEMIR 100 UNIT/ML 10 ML VIAL SQ SCH (21:30)
[2018-12-01] MEDS: TEMAZEPAM 15 MG CAP PO PRN (21:30)
[2018-12-01] MEDS: risperiDONE 0.5 MG TAB PO SCH (21:30)
[2018-12-01] MEDS: PRAVASTATIN SODIUM 80 MG TAB PO SCH (21:30)
[2018-12-02] MEDS: SODIUM CHLORIDE 0.9% 1,000 ML IV SCH (05:41)
[2018-12-02 06:16] LABS: Glucose,Whole Blood 120 mg/dL (75-99)
[2018-12-02] MEDS: INSULIN ASPART 100 UNIT/ML 1 ML 10 ML VIAL SQ SCH ×4 (06:20→21:11)
[2018-12-02] MEDS: PANTOPRAZOLE 40 MG TABLET PO SCH (06:21)
[2018-12-02 07:26] LABS: Calcium 8.7 mg/dL (8.4-10.2); Potassium 4.1 mmol/L (3.5-5.1)
[2018-12-02 08:19] LABS: INR 2.5 (<1.2); Prothrombin Time 23.8 sec (9.0-12.0)
[2018-12-02] MEDS: METOPROLOL TARTRATE 25 MG TAB PO SCH ×2 (09:23→20:07)
[2018-12-02] MEDS: ASPIRIN 81 MG PO SCH (09:23)
[2018-12-02] MEDS: CALCITRIOL 0.25 MCG CAP PO SCH (09:23)
[2018-12-02] MEDS: CYANOCOBALAMIN 500 MCG TAB PO SCH (09:24)
[2018-12-02] MEDS: ALLOPURINOL 100 MG TAB PO SCH (09:24)
[2018-12-02] MEDS: FLUDROCORTISONE 0.1 MG TAB PO SCH (09:24)
[2018-12-02] MEDS: risperiDONE 0.5 MG TAB PO SCH ×2 (09:24→20:07)
--- NOTE | 2018-12-02 10:43 | P.PN ---
Subjective Patient is seen in follow-up for acute kidney injury on chronic kidney disease. Patient has chronic kidney disease stage IV secondary to nephrosclerosis with baseline creatinine in the range of 2.5-3. Patient is noted to have atrophic kidneys. Currently resting in bed. No active chest pain or shortness of breath. Patient sustained a fall 2 days ago and was noted to be orthostatic. She was started on normal saline at 50 mL an hour. Oral intake is good. No vomiting or diarrhea. Vital signs are stable. General: The patient appeared well nourished and normally developed. HEENT: Head exam is unremarkable. Neck is without jugular venous distension. LUNGS: Lungs are clear to auscultation and percussion. Breath sounds decreased. HEART: Rate and Rhythm are regular. First and second heart sounds normal. No murmurs, rubs or gallops. ABDOMEN: Abdominal exam reveals normal bowel sounds. Non-tender and non- distended. No evidence of peritonitis. EXTREMITITES: No clubbing, cyanosis, or edema. Objective - Vital Signs Vital signs: Vital Signs Temp 98.2 F 12/02/18 08:00 Pulse 69 12/02/18 08:00 Resp 16 12/02/18 08:00 BP 189/70 12/02/18 08:00 Pulse Ox 99 12/02/18 08:00 Intake & Output 12/01/18 12/02/18 12/02/18 18:59 06:59 18:59 Intake Total 1160 750 10 Balance 1160 750 10 Weight 107 kg Intake: IV 380 30 10 Invasive Line 3 30 30 10 Sodium Chloride 0.9% 1, 350 000 ml @ 50 mls/hr IV . [facility] Rx#:[id number] Oral 780 720 Other: Voiding Method Toilet Toilet Toilet # Voids 2 - Labs CBC & Chem 7: 12/01/18 06:30 12/02/18 06:24 Labs: Abnormal Lab Results - Last 24 Hours (Table) 12/01/18 12/01/18 12/01/18 Range/Units 11:32 14:34 16:28 PT (9.0-12.0) sec INR (<1.2) Chloride (98-107) mmol/L Carbon Dioxide (22-30) mmol/L BUN (7-17) mg/dL Creatinine (0.52-1.04) mg/dL Glucose (74-99) mg/dL POC Glucose (mg/dL) 224 H 128 H 108 H (75-99) mg/dL 12/01/18 12/02/18 12/02/18 Range/Units 21:20 06:15 06:24 PT (9.0-12.0) sec INR (<1.2) Chloride 95 L (98-107) mmol/L Carbon Dioxide 34 H (22-30) mmol/L BUN 33 H (7-17) mg/dL Creatinine 3.13 H (0.52-1.04) mg/dL Glucose 134 H (74-99) mg/dL POC Glucose (mg/dL) 204 H 120 H (75-99) mg/dL 12/02/18 Range/Units 06:24 PT 23.8 H (9.0-12.0) sec INR 2.5 H (<1.2) Chloride (98-107) mmol/L Carbon Dioxide (22-30) mmol/L BUN (7-17) mg/dL Creatinine (0.52-1.04) mg/dL Glucose (74-99) mg/dL POC Glucose (mg/dL) (75-99) mg/dL Assessment and Plan Plan: Assessment: 1. Chronic kidney disease stage IV secondary to nephrosclerosis with baseline creatinine in the range of 2.5-3. Renal function slightly worse today with creatinine at 3.13. This is due to hypotension. 2. Diastolic CHF. 3. Hypertension with chronic kidney disease. Patient noticed to be orthostatic. 4. Hypertonic hyponatremia. Better. 5. Diabetes mellitus. 6. Chronic kidney disease mineral bone disease maintained on calcitriol. 7. Chest pain. Cardiology following. Dobutamine stress echo was negative. 8. Orthostatic hypotension currently on IV fluids. Also started on Florinef. Plan: Avoid nephrotoxins. Tight blood sugar control. Repeat electrolytes in the morning. Hold Lasix. Hep-Lock IV fluids. Monitor volume status as Florinef will lead to salt and fluid retention. Continue to monitor orthostatic vital signs.
[2018-12-02 11:20] VITALS: BMI 38.0
[2018-12-02 11:28] LABS: Glucose,Whole Blood 248 mg/dL (75-99)
--- NOTE | 2018-12-02 12:33 | P.PN ---
Subjective Progress Note Date: 12/02/18 Progress note being dictated for Dr. Alvarez. Interval history: This a 63-year-old female admitted with chest pain, possible unstable angina, possible acute non-STEMI with elevated troponin of 0.040, acute on chronic renal failure and multiple other medical issues. Evaluated by cardiology, recommendations noted; maximizing medical therapy with stress test on Wednesday. Renal function improving, creatinine 2.81. Receiving supplements, magnesium 1.5. Denies chest pain, palpitations or increased shortness of breath. Denies lightheadedness dizziness or focal deficits. Echocardiogram limited study, reporting moderate concentric left ventricular hypertrophy, normal EF 55-60%, moderately dilated LA. hemoglobin A1c 6.1 11/29/18 no further chest pain, palpitations. Upset over some personal issues with her brother. Denies lightheadedness dizziness or focal deficits. Afebrile. Blood sugars controlled. Creatinine 3.13. Magnesium 2.Scheduled for dobutamine stress echo tomorrow with cardiology. 11/30/18 Orthostatic hypotensive, Florinef added to med regime. Gentle IV fluid hydration. Dobutamine stress test reported as negative for any reversible ischemia. Denies chest pain, palpitations or increasing shortness of breath. Staff reporting patient carrying on conversations within her empty room with no visitors, hallucinating, paranoid. INR 2.7, Coumadin on hold. Creatinine 2.98. Denies lightheadedness, dizziness or focal deficits. No headache. Denies pain. Objective - Vital Signs Vital signs: Vital Signs Temp 97.2 F L 12/01/18 16:00 Pulse 64 12/01/18 20:00 Resp 16 12/01/18 20:00 BP 140/64 12/01/18 20:00 Pulse Ox 94 L 12/01/18 20:00 Intake & Output 12/01/18 12/01/18 12/02/18 06:59 18:59 06:59 Intake Total 1325 1160 250 Balance 1325 1160 250 Weight 102.8 kg Intake: IV 380 10 Invasive Line 3 30 10 Sodium Chloride 0.9% 1, 350 000 ml @ 50 mls/hr IV . Q20H [facility] Rx#:[id number] Oral 1325 780 240 Other: Voiding Method Toilet Toilet Toilet # Voids 3 - Exam PHYSICAL EXAM: VITAL SIGNS: As above GENERAL: Sitting up in bed, no acute distress HEENT: Conjunctivae normal. Oral mucosa moist NECK: No JVD. No thyroid enlargement. No LNs CARDIOVASCULAR: S1, S2 muffled. No murmur RESPIRATION: Breath sounds diminished in the bases. Occasional scattered rhonchi, no crackles. ABDOMEN: Soft, nontender . No guarding. no masses palpable. Bowel sounds heard. LEGS: No edema. no swelling PSYCHIATRY: Alert and oriented -3, paranoid and delusional. NERVOUS SYSTEM: Cranial N 2-12 grossly normal. Moves all 4 limbs. Diffuse weakness No focal deficits. Skin: no rash - Labs CBC & Chem 7: 12/01/18 06:30 12/02/18 06:24 Labs: Abnormal Lab Results - Last 24 Hours (Table) 12/01/18 12/01/18 12/01/18 Range/Units 03:10 05:44 06:30 RDW 15.8 H (11.5-15.5) % Monocytes # 1.1 H (0-1.0) k/uL PT (9.0-12.0) sec INR (<1.2) Sodium (137-145) mmol/L Chloride (98-107) mmol/L Carbon Dioxide (22-30) mmol/L BUN (7-17) mg/dL Creatinine (0.52-1.04) mg/dL Glucose (74-99) mg/dL POC Glucose (mg/dL) 156 H 200 H (75-99) mg/dL 12/01/18 12/01/18 12/01/18 Range/Units 06:30 06:30 11:32 RDW (11.5-15.5) % Monocytes # (0-1.0) k/uL PT 26.5 H (9.0-12.0) sec INR 2.7 H (<1.2) Sodium 136 L (137-145) mmol/L Chloride 91 L (98-107) mmol/L Carbon Dioxide 33 H (22-30) mmol/L BUN 35 H (7-17) mg/dL Creatinine 2.98 H (0.52-1.04) mg/dL Glucose 189 H (74-99) mg/dL POC Glucose (mg/dL) 224 H (75-99) mg/dL 12/01/18 12/01/18 12/01/18 Range/Units 14:34 16:28 21:20 RDW (11.5-15.5) % Monocytes # (0-1.0) k/uL PT (9.0-12.0) sec INR (<1.2) Sodium (137-145) mmol/L Chloride (98-107) mmol/L Carbon Dioxide (22-30) mmol/L BUN (7-17) mg/dL Creatinine (0.52-1.04) mg/dL Glucose (74-99) mg/dL POC Glucose (mg/dL) 128 H 108 H 204 H (75-99) mg/dL Assessment and Plan Assessment: -Chest pain, possible unstable angina, possible acute non-STEMI -Troponin 0.040 -Acute on chronic renal failure -Hypomagnesemia -CAD -Diabetes mellitus type 2 -History of DVT, PE -Hypertension -Hyperlipidemia -Orthostatic hypotension Plan: Continue on current medication regime , monitoring and symptomatic treatment. Orthostatic hypotension, Florinef added to med regime along with gentle IV fluid hydration. orthostatic vitals q shift. Close monitoring of renal function, electrolytes with repeat labs ordered for a.m. psychiatry consult in place with recommendations pending. Further recommendations to follow. The impression and plan of care has been dictated as directed. : I performed a history and examination of this patient, discussed the same with the dictator. I agree with the dictator's note ,documented as a scribe. Any additional findings or plans will be noted.
[2018-12-02] MEDS: ALPRAZolam 0.25 MG TAB PO PRN (12:45)
[2018-12-02 16:15] LABS: Glucose,Whole Blood 165 mg/dL (75-99)
--- NOTE | 2018-12-02 16:54 | P.DS ---
Providers Date of admission: 11/26/18 22:19 Expected date of discharge: 12/02/18 Attending physician: Clifford Alvarez Consults: 11/30/18 12:34 Consult Physician Routine Consulting Provider: Sb Ray Consult Reason/Comments: renal failure, Do you want consulting provider notified?: Yes 12/01/18 10:24 Consult Physician Routine Consulting Provider: Babak Cyr Consult Reason/Comments: Hallucinations Do you want consulting provider notified?: Yes 11/26/18 22:29 Consult Physician Urgent Consulting Provider: Mitch Estrada Consult Reason/Comments: chest pain Do you want consulting provider notified?: Yes Primary care physician: Libia Bhatt [facility] Course: Final Diagnoses: -Chest pain, possible unstable angina, possible acute non-STEMI -Troponin 0.040 -Acute on chronic renal failure -Hypomagnesemia -CAD -Diabetes mellitus type 2 -History of DVT, PE -Hypertension -Hyperlipidemia -Orthostatic hypotension Hospital course:This a 63-year-old female admitted with chest pain, possible unstable angina, possible acute non-STEMI with elevated troponin of 0.040, acute on chronic renal failure and multiple other medical issues. Evaluated by cardiology, recommendations noted; maximizing medical therapy with stress test on Wednesday. Renal function improving, creatinine 2.81. Receiving supplements, magnesium 1.5. Denies chest pain, palpitations or increased shortness of breath. Denies lightheadedness dizziness or focal deficits. Echocardiogram limited study, reporting moderate concentric left ventricular hypertrophy, normal EF 55-60%, moderately dilated LA. hemoglobin A1c 6.1 evaluated by cardiology, nephrology, psychiatry. Orthostatic hypotensive, Florinef added to med regime. Gentle IV fluid hydration. Dobutamine stress test reported as negative for any reversible ischemia. Denies chest pain, palpitations or increasing shortness of breath. Staff reporting patient carrying on conversations within her empty room with no visitors, hallucinating, paranoid. INR 2.7, Coumadin on hold. Creatinine 2.98. Denies lightheadedness, dizziness or focal deficits. Significant clinical improvement. Patient is medically stable for DC. It is our recommendation the patient be transferred to inpatient psychiatry facility. Medically Cleared by all consults for discharge. Patient is being discharged to inpatient mental health unit in a stable condition with guarded prognosis. EXAM: GENERAL: Sitting up in bed, currently not making eye contact, withdrawn CARDIOVASCULAR: S1, S2 muffled. No murmur RESPIRATION: Breath sounds diminished in the bases. Occasional scattered rhonchi, no crackles. ABDOMEN: Soft, nontender . No guarding. no masses palpable. Bowel sounds heard. PSYCHIATRY: Alert and oriented -3, paranoid and delusional. NERVOUS SYSTEM: Cranial N 2-12 grossly normal. Moves all 4 limbs. No gross focal deficits. The impression and plan of care has been dictated as directed. : I performed a history and examination of this patient, discussed the same with the dictator. I agree with the dictator's note ,documented as a scribe. Any additional findings or plans will be noted. Time taken: 35 minutes Patient Condition at Discharge: Stable Plan - Discharge Summary Discharge Rx Participant: No New Discharge Prescriptions: New Metoprolol Tartrate [Lopressor] 25 mg PO BID #60 tab Warfarin Sodium [Coumadin] 4 mg PO DAILY #5 tablet Acetaminophen Tab [Tylenol] 500 mg PO Q6HR PRN tab PRN Reason: Fever And/ Or Pain ALPRAZolam [Xanax] 0.25 mg PO TID PRN tab PRN Reason: Anxiety Aspirin 81 mg PO DAILY chew Fludrocortisone [Florinef] 0.1 mg PO DAILY tab Insulin Detemir [Levemir] 15 unit SQ HS syr Pantoprazole [Protonix] 40 mg PO AC-BRKFST tablet. risperiDONE [RisperDAL] 0.5 mg PO BID tab INSULIN LISPRO (HumaLOG) [humaLOG] 0 unit SQ ACHS #1 vial Continue Ergocalciferol (Vitamin D2) [Drisdol] 50,000 unit PO SA Calcitriol 0.5 mcg PO MOTUWETHFR Pravastatin Sodium [Pravachol] 40 mg PO HS Allopurinol [Zyloprim] 100 mg PO DAILY Cyanocobalamin (Vitamin B-12) [Vitamin B-12] 500 mcg PO DAILY Furosemide [Lasix] 40 mg PO DAILY Discontinued Insulin Aspart (For Pump) [NovoLOG (For Pump)] 0.01 unit SQ-PUMP CONTINUOUS Warfarin [Coumadin] 6 mg PO DAILY tab Discharge Medication List Ergocalciferol (Vitamin D2) [Drisdol] 50,000 unit PO SA 07/13/16 [History] Calcitriol 0.5 mcg PO MOTUWETHFR 07/19/17 [History] Allopurinol [Zyloprim] 100 mg PO DAILY 11/16/18 [History] Cyanocobalamin (Vitamin B-12) [Vitamin B-12] 500 mcg PO DAILY 11/16/18 [History] Pravastatin Sodium [Pravachol] 40 mg PO HS 11/16/18 [History] Furosemide [Lasix] 40 mg PO DAILY 11/26/18 [History] Metoprolol Tartrate [Lopressor] 25 mg PO BID #60 tab 11/30/18 [Rx] Warfarin Sodium [Coumadin] 4 mg PO DAILY #5 tablet 11/30/18 [Rx] ALPRAZolam [Xanax] 0.25 mg PO TID PRN tab 12/02/18 [Rx] Acetaminophen Tab [Tylenol] 500 mg PO Q6HR PRN tab 12/02/18 [Rx] Aspirin 81 mg PO DAILY chew 12/02/18 [Rx] Fludrocortisone [Florinef] 0.1 mg PO DAILY tab 12/02/18 [Rx] INSULIN LISPRO (HumaLOG) [humaLOG] 0 unit SQ ACHS #1 vial 12/02/18 [Rx] Insulin Detemir [Levemir] 15 unit SQ HS syr 12/02/18 [Rx] Pantoprazole [Protonix] 40 mg PO AC-BRKFST tablet. 12/02/18 [Rx] risperiDONE [RisperDAL] 0.5 mg PO BID tab 12/02/18 [Rx] Follow up Appointment(s)/Referral(s): Terry Schuster MD [STAFF PHYSICIAN] - 12/23/18 5:00 pm (Wednesday) Betty Stahl MD [STAFF PHYSICIAN] - 1 Week (Office is closed. Please call to schedule appointment) Libia Bhatt DO [Primary Care Provider] - 12/06/18 11:20 am (Wednesday with [facility]) Patient Instructions/Handouts: Chest Pain (DC) Activity/Diet/Wound Care/Special Instructions: TO MHU,Pending orthostatic vitals No Insulin pump at this time,, resume when sensorium. cooperative, mentally stable. Daily Pt/INR CBC,BMP IN # Days Diet: consist. carb Accu-Cheks before meals and at bedtime, SS scale Activity: limited till F/U Discharge Disposition: TRANSFER TO PSYCH HOSP/UNIT
[2018-12-02] MEDS: WARFARIN 2 MG TAB PO SCH (17:47)
[2018-12-02] MEDS: PRAVASTATIN SODIUM 80 MG TAB PO SCH (20:07)
[2018-12-02 20:39] LABS: Glucose,Whole Blood 213 mg/dL (75-99)
[2018-12-02] MEDS: INSULIN DETEMIR 100 UNIT/ML 10 ML VIAL SQ SCH (21:11)
[2018-12-02] MEDS: TERBINAFINE 1% CREAM 15 GM TUBE TOPICAL SCH (23:37)
[2018-12-03 05:23] LABS: Glucose,Whole Blood 119 mg/dL (75-99)
[2018-12-03] MEDS: INSULIN ASPART 100 UNIT/ML 1 ML 10 ML VIAL SQ SCH ×4 (05:38→21:11)
[2018-12-03] MEDS: PANTOPRAZOLE 40 MG TABLET PO SCH (06:16)
[2018-12-03] MEDS ORDERED: ERGOCALCIFEROL 50,000 UNIT CAP PO SCH (09:00)
[2018-12-03] MEDS: ASPIRIN 81 MG PO SCH (09:27)
[2018-12-03] MEDS: CYANOCOBALAMIN 500 MCG TAB PO SCH (09:27)
[2018-12-03] MEDS: METOPROLOL TARTRATE 25 MG TAB PO SCH ×2 (09:27→20:09)
[2018-12-03] MEDS: ALLOPURINOL 100 MG TAB PO SCH (09:27)
[2018-12-03] MEDS: risperiDONE 0.5 MG TAB PO SCH ×2 (09:27→20:09)
[2018-12-03] MEDS: FLUDROCORTISONE 0.1 MG TAB PO SCH (09:27)
[2018-12-03 11:58] LABS: Glucose,Whole Blood 101 mg/dL (75-99)
[2018-12-03] MEDS: TERBINAFINE 1% CREAM 15 GM TUBE TOPICAL SCH ×2 (12:31→20:09)
[2018-12-03 16:47] LABS: Glucose,Whole Blood 211 mg/dL (75-99)
[2018-12-03] MEDS: WARFARIN 2 MG TAB PO SCH (17:29)
[2018-12-03] MEDS: PRAVASTATIN SODIUM 80 MG TAB PO SCH (20:09)
[2018-12-03 20:13] LABS: Glucose,Whole Blood 187 mg/dL (75-99)
[2018-12-03] MEDS: INSULIN DETEMIR 100 UNIT/ML 10 ML VIAL SQ SCH (21:11)
--- NOTE | 2018-12-03 23:00 | PN ---
PROGRESS NOTE DATE OF SERVICE: 12/03/2018 This 63-year-old woman was admitted with multiple medical problems and significant psychiatric issues as well. The patient is petitioned at this time. The patient had orthostatic hypotension which is improved at this time. The patient is being petitioned by the [facility] at this time. No chest pain. No palpitations. No fever. suction worker and Case Management following the patient closely. No chest pain. No palpitations. No fever. Exam shows orthostatic blood pressure improved. EXAM: Alert and oriented x3. The pulse is 65. Blood pressure 109/56, respiration 18, temperature 97. Pulse ox 94 percent on room air. HEENT: Conjunctivae normal. NECK: No jugular venous distention. CARDIOVASCULAR: S1, S2. RESPIRATION: Breath sounds diminished in the bases. Few scattered rhonchi. No crackles. Abdomen is soft, nontender. Legs are no edema. No swelling. LABS: Accu-Cheks 211. ASSESSMENT: 1. Chest pain possible unstable angina with indeterminate troponins. 2. Acute on chronic renal failure. 3. Orthostatic hypotension. 4. Hypomagnesia. 5. History of coronary artery disease. 6. Diabetes mellitus type 2. 7. History of deep vein thrombosis. 8. Hypertension. 9. Hyperlipidemia. 10.Hallucinations and delirium. RECOMMENDATIONS AND DISCUSSION: Recommend to continue current medications, management and treatment. Otherwise inpatient psych admission but continue rest of medications. Guarded prognosis. Further recommendations to follow. MMODL / IJN: [id number] /
--- NOTE | 2018-12-03 23:06 | PN ---
PROGRESS NOTE is DATE OF SERVICE: 12/02/2018 This 63-year-old woman is admitted with elevated troponin, chest pain, multiple complex medical problems. The patient is being closely monitored. The patient had dobutamine stress echo which was negative for ischemia. The patient also had orthostatic hypotension. Patient had multiple psychiatric issues and include hallucinations and possible delirium. Inpatient psych admission was recommended. No chest pain. No palpitations. No fever. EXAM: Alert and oriented x3. Pulse 77, blood pressure 112/59, respirations 16, temperature 98.2, no orthostatic changes. Pulse o9 98 percent. HEENT: Conjunctivae normal. NECK: No jugular venous distention. No carotid bruit. CARDIOVASCULAR: S1, S2. RESPIRATORY : Breath sounds diminished in the bases. No rhonchi. No crackles. ABDOMEN is soft, nontender. No mass palpable. CENTRAL NERVOUS SYSTEM: No focal deficits. LABS: Creatinine 3.13. ASSESSMENT: 1. Chest pain possible unstable angina. 2. Troponin 0.050 with negative stress echo. 3. Acute on chronic renal failure. 4. Orthostatic hypotension, improved. 5. Hypomagnesia. 6. History of coronary artery disease. 7. Diabetes mellitus type 2. 8. History of deep vein thrombosis, pulmonary embolism. 9. Hypertension. 10.Hyperlipidemia. 11.Hallucinations and delirium. RECOMMENDATIONS AND DISCUSSION: Recommend to continue current medications, continue with monitoring and symptomatic treatment. Otherwise, at this time, I recommend closely monitor with psych and guarded prognosis. Further recommendations to follow. Followup labs, also recommended. Patient will be petitioned. MMODL / IJN: [id number] / MTDD
[2018-12-04 07:30] LABS: Glucose,Whole Blood 122 mg/dL (75-99)
[2018-12-04] MEDS: INSULIN ASPART 100 UNIT/ML 1 ML 10 ML VIAL SQ SCH ×4 (07:46→20:42)
[2018-12-04 07:52] LABS: Basophils # (A) 0.1 k/uL (0-0.2); Basophils % (A) 1 %; Eosinophils # (A) 0.2 k/uL (0-0.7); Eosinophils % (A) 2 %; HCT 36.5 % (34.0-46.0); HGB 11.7 gm/dL (11.4-16.0); Lymphocytes # (A) 0.9 k/uL (1.0-4.8); Lymphocytes % (A) 12 %; MCH 30.1 pg (25.0-35.0); MCHC 31.9 g/dL (31.0-37.0); MCV 94.4 fL (80.0-100.0); Mean Platelet Volume 9.3; Monocytes # (A) 0.7 k/uL (0-1.0); Monocytes % (A) 9 %; Neutrophils # (A) 5.8 k/uL (1.3-7.7); Neutrophils % (A) 74 %; Platelet Count 176 k/uL (150-450); RBC 3.87 m/uL (3.80-5.40); RDW 15.7 % (11.5-15.5); WBC 7.9 k/uL (3.8-10.6)
[2018-12-04 08:01] LABS: Calcium 9.3 mg/dL (8.4-10.2); Potassium 4.2 mmol/L (3.5-5.1)
[2018-12-04] MEDS: ASPIRIN 81 MG PO SCH (08:20)
[2018-12-04] MEDS: FLUDROCORTISONE 0.1 MG TAB PO SCH (08:20)
[2018-12-04] MEDS: ALLOPURINOL 100 MG TAB PO SCH (08:20)
[2018-12-04] MEDS: risperiDONE 0.5 MG TAB PO SCH ×2 (08:21→20:44)
[2018-12-04] MEDS: PANTOPRAZOLE 40 MG TABLET PO SCH (08:21)
[2018-12-04] MEDS: CYANOCOBALAMIN 500 MCG TAB PO SCH (08:21)
[2018-12-04] MEDS: METOPROLOL TARTRATE 25 MG TAB PO SCH ×2 (08:25→20:42)
[2018-12-04] MEDS: TERBINAFINE 1% CREAM 15 GM TUBE TOPICAL SCH ×2 (08:30→22:07)
[2018-12-04 11:08] LABS: Glucose,Whole Blood 116 mg/dL (75-99)
[2018-12-04 17:09] LABS: Glucose,Whole Blood 251 mg/dL (75-99)
[2018-12-04 20:19] LABS: Glucose,Whole Blood 191 mg/dL (75-99)
[2018-12-04] MEDS: ALPRAZolam 0.25 MG TAB PO PRN (20:42)
[2018-12-04] MEDS: INSULIN DETEMIR 100 UNIT/ML 10 ML VIAL SQ SCH (20:42)
[2018-12-04] MEDS: TEMAZEPAM 15 MG CAP PO PRN (20:42)
[2018-12-04] MEDS: WARFARIN 2 MG TAB PO SCH (20:44)
[2018-12-04] MEDS: PRAVASTATIN SODIUM 80 MG TAB PO SCH (20:45)
--- NOTE | 2018-12-04 22:51 | PN ---
PROGRESS NOTE DATE OF SERVICE: This 63-year-old woman with a past medical history of multiple medical problems, was admitted with chest pain. Stress test negative. The patient also had orthostatic hypotension, which the patient improved significantly. The patient also has multiple psychiatric the illnesses at this time. The patient is slated to go to inpatient psych if refused by [facility] inpatient psych facility at this time. No chest pain. No palpitations. No fever. EXAM: Alert and oriented x3, pulse 69, blood pressure 160/70, respiration 18, temperature 97.2, pulse ox 100 percent on room air. HEENT: Conjunctivae normal. Neck is no jugular venous distention. CARDIOVASCULAR: S1, S2 muffled. RESPIRATIONS: Breath sounds diminished in the bases. ABDOMEN: Soft. NERVOUS SYSTEM: No focal deficits. LABS: Creatinine is 2.70. CBC noted. ASSESSMENT: 1. Chest pain possible unstable angina. 2. Troponin 0.050 with negative stress echo. 3. Acute on chronic renal failure. 4. Chronic kidney history stage III on baseline. 5. Orthostatic hypotension, improved. 6. Hypomagnesemia. 7. History of coronary artery disease. 8. History of diabetes type 2. 9. History of deep venous thrombosis and pulmonary embolus. 10.Hypertension. 11.Hyperlipidemia. 12.Hallucinations and delirium. RECOMMENDATIONS AND DISCUSSION: Recommend to continue current medication, continue to monitor. Symptomatic treatment. Otherwise, closely follow with current medications. The patient is on Coumadin. INR. We will closely monitor the PT/INR. Guarded prognosis because of multiple complex medical issues. Further recommendations to follow. MMODL / IJN: [id number] /
[2018-12-05 07:15] LABS: Glucose,Whole Blood 102 mg/dL (75-99)
[2018-12-05] MEDS: INSULIN ASPART 100 UNIT/ML 1 ML 10 ML VIAL SQ SCH ×2 (07:23→12:11)
[2018-12-05 08:09] LABS: INR 1.8 (<1.2); Prothrombin Time 17.8 sec (9.0-12.0)
[2018-12-05 08:10] LABS: Basophils % (A) 1 %; Eosinophils # (A) 0.2 k/uL (0-0.7); Eosinophils % (A) 3 %; HCT 33.7 % (34.0-46.0); Lymphocytes # (A) 0.9 k/uL (1.0-4.8); Lymphocytes % (A) 15 %; MCH 30.7 pg (25.0-35.0); MCHC 32.7 g/dL (31.0-37.0); MCV 93.9 fL (80.0-100.0); Mean Platelet Volume 8.9; Monocytes # (A) 0.6 k/uL (0-1.0); Monocytes % (A) 9 %; Neutrophils # (A) 4.5 k/uL (1.3-7.7); Neutrophils % (A) 70 %; Platelet Count 197 k/uL (150-450); RBC 3.59 m/uL (3.80-5.40); WBC 6.4 k/uL (3.8-10.6)
[2018-12-05 08:23] LABS: Potassium 3.7 mmol/L (3.5-5.1)
[2018-12-05] MEDS: PANTOPRAZOLE 40 MG TABLET PO SCH (09:05)
[2018-12-05] MEDS: ASPIRIN 81 MG PO SCH (09:05)
[2018-12-05] MEDS: ALLOPURINOL 100 MG TAB PO SCH (09:05)
[2018-12-05] MEDS: METOPROLOL TARTRATE 25 MG TAB PO SCH (09:05)
[2018-12-05] MEDS: CYANOCOBALAMIN 500 MCG TAB PO SCH (09:06)
[2018-12-05] MEDS: FLUDROCORTISONE 0.1 MG TAB PO SCH (09:06)
[2018-12-05] MEDS: CALCITRIOL 0.25 MCG CAP PO SCH (09:06)
[2018-12-05] MEDS: risperiDONE 0.5 MG TAB PO SCH (09:07)
[2018-12-05 11:19] LABS: Glucose,Whole Blood 163 mg/dL (75-99)
[2018-12-05] MEDS: TERBINAFINE 1% CREAM 15 GM TUBE TOPICAL SCH (11:39)
[2018-12-05 12:19] VITALS: BP 97/60; PULSE 54; RESP 18; TEMP 97.9
--- NOTE | 2018-12-05 18:43 | PN ---
PROGRESS NOTE Patient is seen for followup for chronic kidney disease. The patient has had significant hallucinations. She is being followed by a psychiatry and is being transferred to the psych unit. Renal function has improved and is currently at baseline. EXAMINATION: This morning, blood pressure was 119/76, heart rate 65 per minute. Patient is afebrile. Examination of the heart S1, S2. Examination of lungs bilateral breath sounds are heard. Abdomen is soft, nontender. Examination of lower extremities shows no significant edema. PITCH WORKER exam is grossly intact. Patient is moving all 4 extremities. LABS: Show sodium 138, potassium 3.7, BUN 28, serum creatinine 2.58, hemoglobin 11.0. ASSESSMENT: 1. Chronic kidney disease and NKF stage IV, renal function close to baseline. 2. Hallucinations and delirium, being followed by psych and being transferred to psych unit. 3. History of deep vein thrombosis and pulmonary embolism. 4. Diastolic heart failure, currently stable. PLAN: The patient is stable for transfer to the psych floor. Continue current medications including the Rocaltrol. Monitor for edema while patient is on Florinef. MMODL / IJN: [id number] /
--- NOTE | 2018-12-06 05:34 | DS ---
DISCHARGE SUMMARY DISCHARGE ADDENDUM DATE OF SERVICE: 12/05/2018 This 63-year-old woman was admitted with multiple medical problems, had a negative stress echo. Patient was orthostatic hypotensive initially but it improved significantly. Patient also had hallucinations, delusions, also. Psych is recommending inpatient psych floor. The patient will be discharged in stable condition with guarded prognosis to inpatient psych. On exam, vital signs are stable. CARDIOVASCULAR: S1, S2 muffled. ABDOMEN: Soft. NERVOUS SYSTEM: No focal deficits. Please refer to my previous dictation for list of diagnoses and as well as list of medications. MMODL / IJN: [id number] /
== END 2018-12-05 15:00 ==
LOC: EC 20:31 → 3SCARD 22:19 → 3NMEDONC 12-03 21:36
PROVIDERS: ADMIT Hospitalist; ATTEND Hospitalist
DX: R07.89 Other chest pain (principal); R77.8 Other specified abnormalities of plasma proteins; N17.9 Acute kidney failure, unspecified; I13.0 Hypertensive heart and chronic kidney disease with heart failure and stage 1 through stage 4 chronic kidney disease, or unspecified chronic kidney disease; N18.4 Chronic kidney disease, stage 4 (severe); I50.30 Unspecified diastolic (congestive) heart failure; E83.42 Hypomagnesemia; I95.1 Orthostatic hypotension; E87.1 Hypo-osmolality and hyponatremia; F22 Delusional disorders; R41.0 Disorientation, unspecified; E55.9 Vitamin D deficiency, unspecified; E11.22 Type 2 diabetes mellitus with diabetic chronic kidney disease; I25.10 Atherosclerotic heart disease of native coronary artery without angina pectoris; E78.5 Hyperlipidemia, unspecified; Z79.01 Long term (current) use of anticoagulants; Z79.4 Long term (current) use of insulin; Z79.899 Other long term (current) drug therapy; Z96.41 Presence of insulin pump (external) (internal); Z86.711 Personal history of pulmonary embolism; Z88.0 Allergy status to penicillin; Z88.1 Allergy status to other antibiotic agents; Z90.49 Acquired absence of other specified parts of digestive tract; Z91.81 History of falling; Z86.718 Personal history of other venous thrombosis and embolism; Z82.49 Family history of ischemic heart disease and other diseases of the circulatory system
CPT/HCPCS: 96361; 96365; 96366; 99285; 36415; 93005; 80061; 80053; 80048 ×7; 82550 ×2; 82553 ×2; 83690; 83735 ×3; 84484 ×2; 85025 ×7; 85610 ×7; 85730; 81003; 83036; 73502; 71046; G0378 ×11; C8924; C8930; J1250; J3475 ×2; Q9950 ×2; 93308; 93351

== ENCOUNTER 2018-12-05 13:59 | Inpatient (IN) | payer MEDICARE, BC ==
[2018-12-05 15:41] VITALS: BMI 37.1
[2018-12-05 17:27] LABS: Glucose,Whole Blood 305 mg/dL (75-99)
[2018-12-05] MEDS: WARFARIN 2 MG TAB PO SCH (18:15)
[2018-12-05] MEDS: INSULIN ASPART 100 UNIT/ML 1 ML 10 ML VIAL SQ SCH ×2 (18:15→21:48)
[2018-12-05] MEDS: CALCITRIOL 0.25 MCG CAP PO SCH (18:15)
[2018-12-05 20:01] LABS: Glucose,Whole Blood 278 mg/dL (75-99)
[2018-12-05] MEDS ORDERED: INSULIN ASPART 100 UNIT/ML 1 ML 10 ML VIAL SQ ONE (20:15)
[2018-12-05] MEDS: PRAVASTATIN SODIUM 40 MG TAB PO SCH (20:43)
[2018-12-05] MEDS: METOPROLOL TARTRATE 25 MG TAB PO SCH ×2 (20:43→20:50)
[2018-12-05] MEDS: risperiDONE 0.5 MG TAB PO SCH (20:43)
[2018-12-05] MEDS ORDERED: INSULIN DETEMIR 100 UNIT/ML 10 ML VIAL SQ SCH (21:00)
[2018-12-06 03:45] LABS: Glucose,Whole Blood 60 mg/dL (75-99)
[2018-12-06 03:45] LABS: Glucose,Whole Blood 55 mg/dL (75-99)
[2018-12-06 04:12] LABS: Glucose,Whole Blood 77 mg/dL (75-99)
[2018-12-06 06:28] LABS: Glucose,Whole Blood 123 mg/dL (75-99)
[2018-12-06] MEDS: INSULIN ASPART 100 UNIT/ML 1 ML 10 ML VIAL SQ SCH ×4 (07:33→20:29)
[2018-12-06] MEDS: ALLOPURINOL 100 MG TAB PO SCH (08:38)
[2018-12-06] MEDS: FLUDROCORTISONE 0.1 MG TAB PO SCH (08:38)
[2018-12-06] MEDS: FUROSEMIDE 40 MG TAB PO SCH (08:38)
[2018-12-06] MEDS: METOPROLOL TARTRATE 25 MG TAB PO SCH ×2 (08:38→20:55)
[2018-12-06] MEDS: PANTOPRAZOLE 40 MG TABLET PO SCH (08:38)
[2018-12-06] MEDS: risperiDONE 0.5 MG TAB PO SCH ×2 (08:39→20:28)
[2018-12-06] MEDS: ASPIRIN 81 MG PO SCH (08:39)
[2018-12-06] MEDS: CYANOCOBALAMIN 500 MCG TAB PO SCH (08:39)
[2018-12-06 10:09] LABS: INR 1.7 (<1.2); Prothrombin Time 17.3 sec (9.0-12.0)
--- NOTE | 2018-12-06 11:17 | P.HP ---
Psychiatric H&P - . H&P Date: 12/06/18 History & Physical: Allergies Allergy/AdvReac Type Severity Reaction Status Date / Time azithromycin Allergy Unknown Rash/Hives Verified 12/05/18 16:06 amoxicillin Allergy Rash/Hives Verified 12/05/18 16:06 Vital Signs Temp 97.2 F L 12/05/18 15:31 Pulse 114 H 12/06/18 08:41 Resp 20 12/06/18 08:41 BP 81/46 12/06/18 08:41 Pulse Ox Intake & Output 12/05/18 12/06/18 12/06/18 18:59 06:59 18:59 Weight 104.335 kg Laboratory Last Values POC Glucose (mg/dL) 123 mg/dL (75-99) H 12/06/18 06:23 POC Glu Pharmacist Hospital ID Shani Medel 12/06/18 06:23 Assessment and Plan Assessment: This is a 63-year-old female with a history of diabetes mellitus on insulin pump , history of C Sandra stage IV baseline creatinine 2.6 comes to the ER for above- mentioned complaints. Patient says that she was not feeling well and her sugars were dropping at home the mail clerk was adjusting the insulin as an outpatient but the blood sugars still continue to drop so the patient came into the ER for about further evaluation and management. The patient otherwise did not complain of any chest pain or racing heart, she did not complain of any cough or shortness of breath, she said that she's been drinking fluids at home she thinks but she's not been good with her food intake. She does not complain of any nausea vomiting or diarrhea constipation, no tingling numbness of any extremities, no itch no rash. She did not complain of any bleeding from anywhere. ER course-patient's vitals were stable in the ER. Lab work was done which showed WAC 10.3 hemoglobin 11.6 platelets 219 K INR was 7.2 sodium 134 potassium 3.1 BU and 48 creatinine 6.32. Urinalysis showed a lot of hyaline casts hence, squamous epithelial cells. Patient was given vitamin K and was given potassium chloride. She was started on IV fluids and admitted to the hospitalist service for further evaluation and management cc:Patient is reported talking to individuals who are not present in room.Patient removed her insulin pump and insist she is having surgery despite no surgery scheduled. Past Medical History Past Medical History: Coronary Artery Disease (CAD), Diabetes Mellitus, Deep Vein Thrombosis (DVT), Hyperlipidemia, Hypertension, Pulmonary Embolus (PE), Renal Disease Additional Past Medical History / Comment(s): Vitamin D Deficency, pt has insulin pump, elevated liver enzymes History of Any Multi-Drug Resistant Organisms: None Reported Past Surgical History: Appendectomy, Cholecystectomy Additional Past Surgical History / Comment(s): Breast Biopsy, Carapal tunnel to right hand, Heart Catherization, colonoscopy 08/2014 Past Anesthesia/Blood Transfusion Reactions: No Reported Reaction Past Psychological History: No Psychological Hx Reported Smoking Status: Never smoker Past Alcohol Use History: Occasional Past Drug Use History: None Reported - Past Family History Mother Family Medical History: No Reported History Additional Family Medical History / Comment(s): heart disease Father Additional Family Medical History / Comment(s): heart disease Past Psychiatric History: Patient denies any prior history of inpatient or outpatient psychiatric care and has never been on any psychotropic medication. Patient has no prior history of suicide attempts. She had one brief admission due to delirium and psychosis Past Medical/Surgical History: She has a history of diabetes, hypertension hyperlipidemia, DVT, CAD and is status post pulmonary embolism. She is also status post cholecystectomy and an appendectomy. She was being treated for biliary obstruction with sepsis on the medical floor. Social History: [Patient has never been and she has no children. She lives alone in a duplex reports that she has been caring for her activities of daily living without difficulty. 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 She resigned when her diabetes was diagnosed. Patient states that she then went to college and obtained a bachelor's degree. 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 Patient denies any prior history of abuse. She reports he has many supportive friends and is active at home and does drive her own car. Substance Use History: Patient denies any current or prior drug use and states that she has an occasional glass of wine and has never used alcohol to excess. Patient denies any prior tobacco use Legal History: Patient denies any legal history. Medications and Allergies Home Medications Medication Instructions Recorded Confirmed Type Furosemide [Lasix] 40 mg PO DAILY 04/08/16 11/16/18 History Ergocalciferol (Vitamin D2) 50,000 unit PO SA 07/13/16 11/16/18 History [Drisdol] Calcitriol 0.5 mcg PO MOTUWETHFR 07/19/17 11/16/18 History Warfarin Sodium 6 mg PO MOWEFRSA 12/02/17 11/16/18 History Insulin Aspart (For Pump) [NovoLOG 0.01 unit SQ-PUMP CONTINUOUS 05/13/18 History (For Pump)] Warfarin [Coumadin] 4 mg PO SUTUTH 05/13/18 11/16/18 History Allopurinol [Zyloprim] 100 mg PO DAILY 11/16/18 11/16/18 History Cyanocobalamin (Vitamin B-12) 500 mcg PO DAILY 11/16/18 11/16/18 History [Vitamin B-12] Pravastatin Sodium [Pravachol] 40 mg PO HS 11/16/18 11/16/18 History Allergies Allergy/AdvReac Type Severity Reaction Status Date / Time azithromycin Allergy Unknown Rash/Hives Verified 11/16/18 22:30 amoxicillin Allergy Rash/Hives Verified 11/16/18 22:30 Mental Status:Appearance/Attitude: Patient is dressed in a hospital gown and is found sleeping in bed but is easily awakened, she makes intermittent eye contact and is non cooperative.] Behavior: Patient does not exhibit any psychomotor agitation or retardation. Speech/Language: Patient's speech is spontaneous and of normal volume and rhythm . Thought Process: Patient is goal-directed and there is no evidence of circumstantial or tangential thought and no loose associations or flight of ideas. Thought Content: Patient denies any current auditory or visual hallucinations Suicidal/Homicidal Ideation: Patient denied any current suicidal or homicidal ideation. Sensorium/Cognition: Patient is alert and oriented to person, place, and time and her memory is grossly intact. Mood/Affect: Patient's mood is slightly guarded and her affect is appropriate. Intellectual Functioning: Patient's intellectual functioning appears average. Strength/Weaknesses: Patient has a good support system, stable housing, financial support/conflicted sibling relationship. Plan: Admitted voluntary to the psychiatric unit on [facility] and was evaluated for homicidal suicidal thought disorder and mood disorder anxiety disorder. She will be followed by medicine, social work, nursing staff, psychiatry, and occupational therapy. She is REM on risperidone 0.5 mg by mouth twice a day and does not have any auditory or visual hallucinations. She appears to be an introvert and is very shy even though she is a substitute schoolteacher. She most likely be discharged on 12/07/2018 after she is gone to groups and 18 in the morning. Time with Patient: Greater than 30
[2018-12-06 12:45] LABS: Glucose,Whole Blood 309 mg/dL (75-99)
--- NOTE | 2018-12-06 17:25 | P.MDCNMH ---
History of Present Illness H&P Date: 12/06/18 Chief Complaint: Medical management of hypertension and other multiple medical problems Patient is 63-year-old female with a known history of hypertension, hyperlipidemia and diabetes type 2 and also history of DVT/PE currently on anticoagulation with Coumadin was recently admitted to hospital with complaint of chest pain. Patient was found to have elevated troponin level of 0.040. Patient underwent cardiac workup including due to stress echocardiogram which is negative for any inducible ischemia. Patient is also having acute on chronic kidney disease and her renal function is getting better. Patient was having hallucinations and delusions and was subsequently transferred to mental health unit for further management. INR currently is 1.7. Coumadin dose will be continued. Currently patient denied any complaints of chest pain or shortness of breath. No leg swelling. No nausea vomiting or abdominal pain. Blood sugar was in 60s this morning and insulin dose will be adjusted. No fever no chills. No cough or sputum production. Review of Systems Constitutional: Patient denies any fever or chills . No generalized weakness or weight loss. Abdomen: Patient denied nausea vomiting and diarrhea and abdominal pain. Cardiovascular: Patient denies any chest pain or short of breath no palpitations. Respiratory: patient denied any cough is from production. No shortness of breath Neurologic: Patient denied any numbness or tingling headache. Musculoskeletal: Patient denies any complaints of joint swelling or deformity. Skin: Negative Psychiatric: Negative Endocrine: No heat or cold intolerance. No recent weight gain. Genitourinary: No dysuria or hematuria. All other 14 point ROS negative except the above Past Medical History Past Medical History: Coronary Artery Disease (CAD), Diabetes Mellitus, Deep Vein Thrombosis (DVT), Hyperlipidemia, Hypertension, Pulmonary Embolus (PE), Renal Disease Additional Past Medical History / Comment(s): Vitamin D Deficency, pt has insulin pump, elevated liver enzymes History of Any Multi-Drug Resistant Organisms: None Reported Past Surgical History: Appendectomy, Cholecystectomy Additional Past Surgical History / Comment(s): Breast Biopsy, Carapal tunnel to right hand, Heart Catherization, colonoscopy 08/2014 Past Anesthesia/Blood Transfusion Reactions: No Reported Reaction Past Psychological History: No Psychological Hx Reported Smoking Status: Never smoker Past Alcohol Use History: Occasional Past Drug Use History: None Reported - Past Family History Mother Family Medical History: No Reported History Additional Family Medical History / Comment(s): heart disease Father Additional Family Medical History / Comment(s): heart disease Medications and Allergies Home Medications Medication Instructions Recorded Confirmed Type Ergocalciferol (Vitamin D2) 50,000 unit PO SA 07/13/16 12/05/18 History [Drisdol] Calcitriol 0.5 mcg PO MOTUWETHFR 07/19/17 12/05/18 History Allopurinol [Zyloprim] 100 mg PO DAILY 11/16/18 12/05/18 History Cyanocobalamin (Vitamin B-12) 500 mcg PO DAILY 11/16/18 12/05/18 History [Vitamin B-12] Pravastatin Sodium [Pravachol] 40 mg PO HS 11/16/18 12/05/18 History Furosemide [Lasix] 40 mg PO DAILY 11/26/18 12/05/18 History Metoprolol Tartrate [Lopressor] 25 mg PO BID #60 tab 11/30/18 12/05/18 Rx Warfarin Sodium [Coumadin] 4 mg PO DAILY #5 tablet 11/30/18 12/05/18 Rx ALPRAZolam [Xanax] 0.25 mg PO TID PRN tab 12/02/18 12/05/18 Rx Acetaminophen Tab [Tylenol] 500 mg PO Q6HR PRN tab 12/02/18 12/05/18 Rx Aspirin 81 mg PO DAILY chew 12/02/18 12/05/18 Rx Fludrocortisone [Florinef] 0.1 mg PO DAILY tab 12/02/18 12/05/18 Rx INSULIN LISPRO (HumaLOG) [humaLOG] 0 unit SQ ACHS #1 vial 12/02/18 12/05/18 Rx Insulin Detemir [Levemir] 15 unit SQ HS syr 12/02/18 12/05/18 Rx Pantoprazole [Protonix] 40 mg PO AC-BRKFST tablet. 12/02/18 12/05/18 Rx Terbinafine 1% Cream [LamISIL] 1 applic TOPICAL BID applic 12/02/18 12/05/18 Rx risperiDONE [RisperDAL] 0.5 mg PO BID tab 12/02/18 12/05/18 Rx Allergies Allergy/AdvReac Type Severity Reaction Status Date / Time azithromycin Allergy Unknown Rash/Hives Verified 12/05/18 16:06 amoxicillin Allergy Rash/Hives Verified 12/05/18 16:06 Physical Exam Vitals: Vital Signs Pulse Resp BP 12/06/18 08:41 114 H 20 81/46 12/06/18 04:08 78 18 118/63 12/05/18 20:50 81 113/51 PHYSICAL EXAMINATION: Patient is lying in the bed comfortably, no acute distress, awake alert and oriented.. HEENT: Normocephalic. Neck is supple. Pupils reactive. Nostrils clear. Oral cavity is moist. Ears reveal no drainage. Neck reveals no JVD, carotid bruits, or thyromegaly. CHEST EXAMINATION: Trachea is central. Symmetrical expansion. Lung parada clear to auscultation and percussion. CARDIAC: Normal S1, S2 with no gallops. No murmurs ABDOMEN: Soft. Bowel sounds normal. No organomegaly. No abdominal bruits. Extremities: reveal no edema. No clubbing or cyanosis Neurologically awake, alert, oriented x3 with well-coordinated movements. No focal deficits noted Skin: No rash or skin lesions. Psychiatric: Coperative. Anxious and emotional Musculoskeletal: No joint swelling or deformity. Normal range of motion. Cranial Nerve Examination - Cranial Nerves Cranial Nerve I- Olfactory: Intact Cranial Nerve II- Optic: Intact Cranial Nerve III- Oculomotor: Intact Cranial Nerve IV- Trochlear: Intact Cranial Nerve V- Trigeminal: Intact Cranial Nerve - Abducens: Intact Cranial Nerve VII- Facial: Intact Cranial Nerve VIII- Auditory: Intact Cranial Nerve IX- Glossopharyngeal: Intact Cranial Nerve X- Vagus: Intact Cranial Nerve XI- Accessory: Intact Cranial Nerve XII- Hypoglossal: Intact Results Labs: Abnormal Lab Results - Last 24 Hours (Table) 12/05/18 12/05/18 12/06/18 Range/Units 17:11 19:56 03:16 PT (9.0-12.0) sec INR (<1.2) POC Glucose (mg/dL) 305 H 278 H 55 L (75-99) mg/dL 12/06/18 12/06/18 12/06/18 Range/Units 03:34 06:23 09:34 PT 17.3 H (9.0-12.0) sec INR 1.7 H (<1.2) POC Glucose (mg/dL) 60 L 123 H (75-99) mg/dL 01/08/19 Range/Units 12:39 PT (9.0-12.0) sec INR (<1.2) POC Glucose (mg/dL) 309 H (75-99) mg/dL Assessment and Plan Assessment: Adjustment disorder. Currently in the mental health unit. Recent chest pain with negative cardiac workup History of DVT/PE. Currently on anticoagulation with Coumadin Coumadin monitoring INR 1.7 today Chronic CHF with diastolic dysfunction Chronic kidney disease stage III due to diabetic nephropathy. Baseline creatinine 2.5-3 Hypoglycemia due to insulin dose. We'll reduce Lantus to 12 units from 50 units at bedtime hypertension controlled Hyperlipidemia Diabetes type 2. Currently on insulin pump at home Coronary artery disease nonobstructive no history of stent placement Orthostatic hypotension while in the hospital resolved now. Started on Florinef. Hypomagnesemia Morbid obesity BMI 37.1 DVT prophylaxis patient is already on Coumadin Plan: Patient will be continued on aspirin, statins and metoprolol. Continue with insulin dosing. INR between 2 and 3. Patient will be continued on Levemir 12 units at bedtime and an insulin sliding scale. Monitor CBC before meals and HS Continue to monitor renal function and follow closely. Continue with current psychiatric management. Further recommendations based on the clinical course. Prognosis is guarded with multiple medical problems and comorbid conditions. Time with Patient: Greater than 30
[2018-12-06 17:30] LABS: Glucose,Whole Blood 224 mg/dL (75-99)
[2018-12-06] MEDS: CALCITRIOL 0.25 MCG CAP PO SCH (17:42)
[2018-12-06] MEDS: WARFARIN 2 MG TAB PO SCH (17:42)
[2018-12-06] MEDS ORDERED: WARFARIN 2 MG TAB PO ONE (19:00)
[2018-12-06 19:56] LABS: Glucose,Whole Blood 208 mg/dL (75-99)
[2018-12-06] MEDS: PRAVASTATIN SODIUM 40 MG TAB PO SCH (20:27)
[2018-12-06] MEDS ORDERED: INSULIN DETEMIR 100 UNIT/ML 10 ML VIAL SQ SCH (21:00)
[2018-12-07 03:13] LABS: Glucose,Whole Blood 80 mg/dL (75-99)
[2018-12-07 03:13] LABS: Glucose,Whole Blood 105 mg/dL (75-99)
[2018-12-07 06:28] LABS: Glucose,Whole Blood 160 mg/dL (75-99)
[2018-12-07 06:59] VITALS: TEMP 98.3
[2018-12-07] MEDS: INSULIN ASPART 100 UNIT/ML 1 ML 10 ML VIAL SQ SCH ×2 (07:35→12:47)
[2018-12-07] MEDS: ASPIRIN 81 MG PO SCH (08:39)
[2018-12-07] MEDS: PANTOPRAZOLE 40 MG TABLET PO SCH (08:39)
[2018-12-07] MEDS: ALLOPURINOL 100 MG TAB PO SCH (08:39)
[2018-12-07] MEDS: CYANOCOBALAMIN 500 MCG TAB PO SCH (08:39)
[2018-12-07] MEDS: risperiDONE 0.5 MG TAB PO SCH (08:39)
[2018-12-07] MEDS: FUROSEMIDE 40 MG TAB PO SCH (08:39)
[2018-12-07] MEDS: FLUDROCORTISONE 0.1 MG TAB PO SCH (08:39)
[2018-12-07] MEDS: METOPROLOL TARTRATE 25 MG TAB PO SCH (08:41)
[2018-12-07 08:42] VITALS: BP 96/51; PULSE 99; RESP 20
[2018-12-07 10:08] LABS: INR 1.9 (<1.2); Prothrombin Time 18.7 sec (9.0-12.0)
--- NOTE | 2018-12-07 11:16 | P.DS ---
Providers Date of admission: 12/05/18 15:03 Expected date of discharge: 12/07/18 Attending physician: Babak Cyr DO Consults: 12/05/18 17:03 Consult Physician Routine Consulting Provider: Clifford Alvarez Consult Reason/Comments: H and P Do you want consulting provider notified?: Yes Primary care physician: Stated None - Discharge Diagnosis(es) (1) Adjustment disorder in remission This is a 63-year-old female with a history of diabetes mellitus on insulin pump , history of C Sandra stage IV baseline creatinine 2.6 comes to the ER for above- mentioned complaints. Patient says that she was not feeling well and her sugars were dropping at home the mason foreman/superintendant was adjusting the insulin as an outpatient but the blood sugars still continue to drop so the patient came into the ER for about further evaluation and management. The patient otherwise did not complain of any chest pain or racing heart, she did not complain of any cough or shortness of breath, she said that she's been drinking fluids at home she thinks but she's not been good with her food intake. She does not complain of any nausea vomiting or diarrhea constipation, no tingling numbness of any extremities, no itch no rash. She did not complain of any bleeding from anywhere. ER course-patient's vitals were stable in the ER. Lab work was done which showed WAC 10.3 hemoglobin 11.6 platelets 219 K INR was 7.2 sodium 134 potassium 3.1 BU and 48 creatinine 6.32. Urinalysis showed a lot of hyaline casts hence, squamous epithelial cells. Patient was given vitamin K and was given potassium chloride. She was started on IV fluids and admitted to the hospitalist service for further evaluation and management cc:Patient is reported talking to individuals who are not present in room.Patient removed her insulin pump and insist she is having surgery despite no surgery scheduled. This was not displayed the entire time while she was on the floor when I examined her or while she was on our unit last 24 hours and that here on the behavioral health unit. Past Medical History Past Medical History: Coronary Artery Disease (CAD), Diabetes Mellitus, Deep Vein Thrombosis (DVT), Hyperlipidemia, Hypertension, Pulmonary Embolus (PE), Renal Disease Additional Past Medical History / Comment(s): Vitamin D Deficency, pt has insulin pump, elevated liver enzymes History of Any Multi-Drug Resistant Organisms: None Reported Past Surgical History: Appendectomy, Cholecystectomy Additional Past Surgical History / Comment(s): Breast Biopsy, Carapal tunnel to right hand, Heart Catherization, colonoscopy 08/2014 Past Anesthesia/Blood Transfusion Reactions: No Reported Reaction Past Psychological History: No Psychological Hx Reported Smoking Status: Never smoker Past Alcohol Use History: Occasional Past Drug Use History: None Reported - Past Family History Mother Family Medical History: No Reported History Additional Family Medical History / Comment(s): heart disease Father Additional Family Medical History / Comment(s): heart disease Past Psychiatric History: Patient denies any prior history of inpatient or outpatient psychiatric care and has never been on any psychotropic medication. Patient has no prior history of suicide attempts. She had one brief admission due to delirium and psychosis Past Medical/Surgical History: She has a history of diabetes, hypertension hyperlipidemia, DVT, CAD and is status post pulmonary embolism. She is also status post cholecystectomy and an appendectomy. She was being treated for biliary obstruction with sepsis on the medical floor. Social History: [Patient has never been and she has no children. She lives alone in a duplex reports that she has been caring for her activities of daily living without difficulty. 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 She resigned when her diabetes was diagnosed. Patient states that she then went to college and obtained a bachelor's degree. 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 Patient denies any prior history of abuse. She reports he has many supportive friends and is active at home and does drive her own car. Substance Use History: Patient denies any current or prior drug use and states that she has an occasional glass of wine and has never used alcohol to excess. Patient denies any prior tobacco use Legal History: Patient denies any legal history. Medications and Allergies Home Medications Medication Instructions Recorded Confirmed Type Furosemide [Lasix] 40 mg PO DAILY 04/08/16 11/16/18 History Ergocalciferol (Vitamin D2) 50,000 unit PO SA 07/13/16 11/16/18 History [Drisdol] Calcitriol 0.5 mcg PO MOTUWETHFR 07/19/17 11/16/18 History Warfarin Sodium 6 mg PO MOWEFRSA 12/02/17 11/16/18 History Insulin Aspart (For Pump) [NovoLOG 0.01 unit SQ-PUMP CONTINUOUS 05/13/18 History (For Pump)] Warfarin [Coumadin] 4 mg PO SUTUTH 05/13/18 11/16/18 History Allopurinol [Zyloprim] 100 mg PO DAILY 11/16/18 11/16/18 History Cyanocobalamin (Vitamin B-12) 500 mcg PO DAILY 11/16/18 11/16/18 History [Vitamin B-12] Pravastatin Sodium [Pravachol] 40 mg PO HS 11/16/18 11/16/18 History Allergies Allergy/AdvReac Type Severity Reaction Status Date / Time azithromycin Allergy Unknown Rash/Hives Verified 11/16/18 22:30 amoxicillin Allergy Rash/Hives Verified 11/16/18 22:30 Current Visit: Yes Status: Acute Priority: Low Hospital Course: Plan: Admitted voluntary to the psychiatric unit on [facility] and was evaluated for homicidal suicidal thought disorder and mood disorder anxiety disorder. She will be followed by medicine, social work, nursing staff, psychiatry, and occupational therapy. She is REM on risperidone 0.5 mg by mouth twice a day and does not have any auditory or visual hallucinations. She appears to be an introvert and is very shy even though she is a substitute schoolteacher. She most likely be discharged on 12/07/2018 after she is gone to [facility] and 18 in the morning. Mental status examination time of discharge: The patient presents alert, pleasant, and cooperative. There calmly seated without any agitated behavior. She reports that [her] mood is good. Affect is congruent and euthymic. [She] deny having any suicidal or homicidal ideation intent or plan. [She] denies any auditory or visual hallucinations. There is no evidence of any delusional thought content. [Her] thought process is linear and goal-directed. Her speech is fluent and nonpressured. [Her] memory and concentration is grossly intact for the purposes of this session. Discharge diagnosis adjustment disorder in remission Patient Condition at Discharge: Stable Plan - Discharge Summary Discharge Rx Participant: No New Discharge Prescriptions: New Pravastatin Sodium [Pravachol] 40 mg PO HS tab Continue Ergocalciferol (Vitamin D2) [Drisdol] 50,000 unit PO SA Calcitriol 0.5 mcg PO MOTUWETHFR Allopurinol [Zyloprim] 100 mg PO DAILY Cyanocobalamin (Vitamin B-12) [Vitamin B-12] 500 mcg PO DAILY Furosemide [Lasix] 40 mg PO DAILY Warfarin Sodium [Coumadin] 4 mg PO DAILY #5 tablet Insulin Detemir [Levemir] 15 unit SQ HS syr INSULIN LISPRO (HumaLOG) [humaLOG] 0 unit SQ ACHS #1 vial Metoprolol Tartrate [Lopressor] 25 mg PO BID #60 tab risperiDONE [RisperDAL] 0.5 mg PO BID 30 Days #60 tab Discontinued Pravastatin Sodium [Pravachol] 40 mg PO HS Acetaminophen Tab [Tylenol] 500 mg PO Q6HR PRN tab PRN Reason: Fever And/ Or Pain ALPRAZolam [Xanax] 0.25 mg PO TID PRN tab PRN Reason: Anxiety Aspirin 81 mg PO DAILY chew Fludrocortisone [Florinef] 0.1 mg PO DAILY tab Pantoprazole [Protonix] 40 mg PO AC-BRKFST tablet. Terbinafine 1% Cream [LamISIL] 1 applic TOPICAL BID applic Discharge Medication List Ergocalciferol (Vitamin D2) [Drisdol] 50,000 unit PO SA 07/13/16 [History] Calcitriol 0.5 mcg PO MOTUWETHFR 07/19/17 [History] Allopurinol [Zyloprim] 100 mg PO DAILY 11/16/18 [History] Cyanocobalamin (Vitamin B-12) [Vitamin B-12] 500 mcg PO DAILY 11/16/18 [History] Furosemide [Lasix] 40 mg PO DAILY 11/26/18 [History] Warfarin Sodium [Coumadin] 4 mg PO DAILY #5 tablet 11/30/18 [Rx] INSULIN LISPRO (HumaLOG) [humaLOG] 0 unit SQ ACHS #1 vial 12/02/18 [Rx] Insulin Detemir [Levemir] 15 unit SQ HS syr 12/02/18 [Rx] Metoprolol Tartrate [Lopressor] 25 mg PO BID #60 tab 12/07/18 [Rx] Pravastatin Sodium [Pravachol] 40 mg PO HS tab 12/07/18 [Rx] risperiDONE [RisperDAL] 0.5 mg PO BID 30 Days #60 tab 12/07/18 [Rx] Follow up Appointment(s)/Referral(s): Luis Livingston [Outside] - 12/13/18 10:30 am (Ori Richardson ) Discharge Disposition: HOME SELF-CARE
[2018-12-07 12:42] LABS: Glucose,Whole Blood 251 mg/dL (75-99)
[2018-12-07] MEDS ORDERED: WARFARIN 5 MG TAB PO ONE (18:00)
[2018-12-10] MEDS ORDERED: ERGOCALCIFEROL 50,000 UNIT CAP PO SCH (09:00)
== END 2018-12-07 16:02 | disposition home or self-care (01) | DRG 882 ==
LOC: 3MHU 15:03
PROVIDERS: ADMIT Psychiatry & Neurology Psychiatry; ATTEND Psychiatry & Neurology Psychiatry
DX: F43.23 Adjustment disorder with mixed anxiety and depressed mood (principal); I13.0 Hypertensive heart and chronic kidney disease with heart failure and stage 1 through stage 4 chronic kidney disease, or unspecified chronic kidney disease; I50.32 Chronic diastolic (congestive) heart failure; E11.22 Type 2 diabetes mellitus with diabetic chronic kidney disease; E11.649 Type 2 diabetes mellitus with hypoglycemia without coma; E66.01 Morbid (severe) obesity due to excess calories; E83.42 Hypomagnesemia; N18.3 Chronic kidney disease, stage 3 (moderate); I95.1 Orthostatic hypotension; I25.10 Atherosclerotic heart disease of native coronary artery without angina pectoris; E78.5 Hyperlipidemia, unspecified; I10 Essential (primary) hypertension; E55.9 Vitamin D deficiency, unspecified; Z68.37 Body mass index [BMI] 37.0-37.9, adult; Z96.41 Presence of insulin pump (external) (internal); Z79.4 Long term (current) use of insulin; Z79.01 Long term (current) use of anticoagulants; Z79.82 Long term (current) use of aspirin; Z79.52 Long term (current) use of systemic steroids; Z79.899 Other long term (current) drug therapy; Z86.718 Personal history of other venous thrombosis and embolism; Z86.711 Personal history of pulmonary embolism; Z71.3 Dietary counseling and surveillance; Z90.49 Acquired absence of other specified parts of digestive tract; Z88.1 Allergy status to other antibiotic agents; Z88.0 Allergy status to penicillin; Z82.49 Family history of ischemic heart disease and other diseases of the circulatory system
CPT/HCPCS: 85610

== ENCOUNTER → 2018-12-24 | Outpatient (CLI) | payer MEDICARE, BC ==
--- NOTE | 2018-12-25 17:49 | MR ---
EXAMINATION TYPE: MR brain wo con DATE OF EXAM: 12/24/2018 COMPARISON: NONE HISTORY: 63 year-old female head injury and tremors TECHNIQUE: Multiplanar, multisequence images of the brain and brainstem were acquired before without IV contrast. Diffusion weighted imaging is performed. FINDINGS: No evidence for acute infarction, hemorrhage, mass, mass effect, midline shift, herniation, effacemen t of basal cisterns, or extra-axial fluid collection. There is mild to moderate generalized cerebral cortical atrophy. No hydrocephalus. Major intracranial flow voids are intact. T2/FLAIR weighted sequences show minimal periventricular bright signal change likely senescent change s. Midline structures demonstrate normal morphology. The craniocervical junction is normal. Mild mucosal thickening ethmoid air cells and left frontal sinus. Globes are intact. IMPRESSION: Mild to moderate generalized atrophy. No acute intracranial abnormality seen. Mild chronic ethmoid and left frontal sinus disease.
== END | disposition home or self-care (01) ==
LOC: RADMRIMAIN 09:20
PROVIDERS: ATTEND Nurse Practitioner Family
DX: G31.89 Other specified degenerative diseases of nervous system (principal)
CPT/HCPCS: 70551

== ENCOUNTER 2019-01-17 17:46 | Emergency (ER) | payer MEDICARE, BC ==
[2019-01-17 17:51] VITALS: TEMP 98
[2019-01-17] MEDS ORDERED: SODIUM CHLORIDE 0.9% 1,000 ML IV ONE (18:05)
--- NOTE | 2019-01-17 18:10 | ED ---
Recheck HPI - General Chief Complaint: Recheck/Abnormal Lab/Rx Stated Complaint: high blood sugar Time Seen by Provider: 01/17/19 17:58 Source: patient Mode of arrival: ambulatory Limitations: no limitations - History of Present Illness Initial Comments: 63-year-old female patient with past medical history significant for diabetes mellitus, CAD, DVT, hyperlipidemia, hypertension, PE, and renal disease presents to the emergency department today for evaluation of elevated blood sugar. Patient states she has been checking her sugar throughout the day and has had levels consistently over 400. States the last level before coming and was greater than 600. Patient states that she is having no symptoms. States that she feels well. She is eating and drinking without difficulty. Denies any nausea, vomiting, abdominal pain. Denies any dizziness or weakness. She denies any recent illness. States that she does wear an insulin pump and did change out the components and medication today when she was having consistently high sugars. Patient denies any recent rash, fever, chills, shortness breath, chest pain, diarrhea, constipation, back pain, numbness, tingling, dizziness, weakness, hematuria, dysuria, urinary urgency, urinary frequency, headache, visual changes, or any other complaints. - Related Data Home Medications Medication Instructions Recorded Confirmed Ergocalciferol (Vitamin D2) 50,000 unit PO SA 07/13/16 01/17/19 [Drisdol] Calcitriol 0.5 mcg PO MOTUWETHFR 07/19/17 01/17/19 Allopurinol [Zyloprim] 100 mg PO DAILY 11/16/18 01/17/19 Cyanocobalamin (Vitamin B-12) 500 mcg PO DAILY 11/16/18 01/17/19 [Vitamin B-12] Furosemide [Lasix] 40 mg PO DAILY 11/26/18 01/17/19 INSULIN LISPRO (For Pump) [humaLOG 0.01 units SQ-PUMP CONTINUOUS 01/17/19 (For Pump)] Magnesium Oxide 400 mg PO DAILY 01/17/19 01/17/19 Potassium Chloride ER [K-Dur 10] 10 meq PO DAILY 01/17/19 01/17/19 Warfarin Sodium 6 mg PO MOWEFR 01/17/19 01/17/19 Warfarin Sodium [Coumadin] 4 mg PO SUTUTHSA 01/17/19 01/17/19 Previous Rx's Medication Instructions Recorded Pravastatin Sodium [Pravachol] 40 mg PO HS tab 12/07/18 Allergies Allergy/AdvReac Type Severity Reaction Status Date / Time azithromycin Allergy Unknown Rash/Hives Verified 01/17/19 18:32 amoxicillin Allergy Rash/Hives Verified 01/17/19 18:32 Review of Systems ROS Statement: Those systems with pertinent positive or pertinent negative responses have been documented in the HPI. ROS Other: All systems not noted in ROS Statement are negative. Past Medical History Past Medical History: Coronary Artery Disease (CAD), Diabetes Mellitus, Deep Vein Thrombosis (DVT), Hyperlipidemia, Hypertension, Pulmonary Embolus (PE), Renal Disease Additional Past Medical History / Comment(s): Vitamin D Deficency, pt has insulin pump, elevated liver enzymes History of Any Multi-Drug Resistant Organisms: None Reported Past Surgical History: Appendectomy, Cholecystectomy Additional Past Surgical History / Comment(s): Breast Biopsy, Carapal tunnel to right hand, Heart Catherization, colonoscopy 08/2014 Past Anesthesia/Blood Transfusion Reactions: No Reported Reaction Past Psychological History: No Psychological Hx Reported Smoking Status: Never smoker Past Alcohol Use History: Occasional Past Drug Use History: None Reported - Past Family History Mother Family Medical History: No Reported History Additional Family Medical History / Comment(s): heart disease Father Additional Family Medical History / Comment(s): heart disease General Exam Limitations: no limitations General appearance: alert, in no apparent distress, other (This is a well- developed, well-nourished adult female patient in no acute distress. Vital signs upon presentation are temperature 98.0F, pulse 78, respirations 20, blood pressure 181 over a 66, pulse ox 100% on room air.) Eye exam: Present: normal appearance, PERRL, EOMI. Absent: scleral icterus, conjunctival injection, periorbital swelling ENT exam: Present: normal exam, normal oropharynx, mucous membranes moist Respiratory exam: Present: normal lung sounds bilaterally. Absent: respiratory distress, wheezes, rales, rhonchi, stridor Cardiovascular Exam: Present: regular rate, normal rhythm, normal heart sounds. Absent: systolic murmur, diastolic murmur, rubs, gallop, clicks GI/Abdominal exam: Present: soft, normal bowel sounds. Absent: distended, tenderness, guarding, rebound, rigid Neurological exam: Present: alert, oriented X3, CN II-XII intact Psychiatric exam: Present: normal affect, normal mood Skin exam: Present: warm, dry, intact, normal color. Absent: rash Course Vital Signs 01/17/19 01/17/19 01/17/19 17:48 22:02 23:15 Temperature 98.0 F Pulse Rate 78 87 67 Respiratory 20 16 20 Rate Blood Pressure 181/66 117/81 125/55 O2 Sat by Pulse 100 98 Oximetry Medical Decision Making - Medical Decision Making 63-year-old female patient presented to the emergency department today for evaluation of hyperglycemia. Patient's meter was reading high at home. Patient denies any symptoms. Physical examination is unremarkable. Labs reviewed and did reveal elevated glucose at 691. BUN and creatinine were elevated at 44 and 3.03 respectively. This is baseline for the patient. We did administer IV fluids and IV insulin, blood sugar did improve to 147. Patient be discharged home at this time to follow-up with her primary care physician for recheck in 1-2 days. Return parameters discussed in detail. She verbalizes understanding and agrees with this plan. - Lab Data Result diagrams: 01/17/19 18:38 01/17/19 18:38 Lab Results 01/17/19 01/17/19 01/17/19 Range/Units 18:37 18:38 18:38 WBC 5.6 (3.8-10.6) k/uL RBC 3.76 L (3.80-5.40) m/uL Hgb 11.6 (11.4-16.0) gm/dL Hct 37.3 (34.0-46.0) % MCV 99.1 D (80.0-100.0) fL MCH 30.9 (25.0-35.0) pg MCHC 31.2 (31.0-37.0) g/dL RDW 15.9 H (11.5-15.5) % Plt Count 186 (150-450) k/uL Neutrophils % 68 % Lymphocytes % 19 % Monocytes % 9 % Eosinophils % 2 % Basophils % 1 % Neutrophils # 3.8 (1.3-7.7) k/uL Lymphocytes # 1.1 (1.0-4.8) k/uL Monocytes # 0.5 (0-1.0) k/uL Eosinophils # 0.1 (0-0.7) k/uL Basophils # 0.0 (0-0.2) k/uL Hypochromasia Slight Macrocytosis Slight Sodium 131 L (137-145) mmol/L Potassium 4.1 (3.5-5.1) mmol/L Chloride 91 L (98-107) mmol/L Carbon Dioxide 27 (22-30) mmol/L Anion Gap 13 mmol/L BUN 44 H (7-17) mg/dL Creatinine 3.03 H (0.52-1.04) mg/dL Est GFR (CKD-EPI)AfAm 18 (>60 ml/min/1.73 sqM) Est GFR (CKD-EPI)NonAf 16 (>60 ml/min/1.73 sqM) Glucose 691 H* (74-99) mg/dL POC Glucose (mg/dL) >600 H (75-99) mg/dL POC Glu [place] ID Naresh Nance Calcium 9.0 (8.4-10.2) mg/dL Total Bilirubin 0.6 (0.2-1.3) mg/dL AST 20 (14-36) U/L ALT 26 (9-52) U/L Alkaline Phosphatase 141 H (38-126) U/L Total Protein 6.2 L (6.3-8.2) g/dL Albumin 3.8 (3.5-5.0) g/dL Urine Color Urine Appearance (Clear) Urine pH (5.0-8.0) Ur Specific [place] (1.001-1.035) Urine Protein (Negative) Urine Glucose (UA) (Negative) Urine Ketones (Negative) Urine Blood (Negative) Urine Nitrite (Negative) Urine Bilirubin (Negative) Urine Urobilinogen (<2.0) mg/dL Ur Leukocyte Esterase (Negative) Acetone, Qual Negative (Negative) 01/17/19 01/17/19 01/17/19 Range/Units 18:40 20:10 21:59 WBC (3.8-10.6) k/uL RBC (3.80-5.40) m/uL Hgb (11.4-16.0) gm/dL Hct (34.0-46.0) % MCV (80.0-100.0) fL MCH (25.0-35.0) pg MCHC (31.0-37.0) g/dL RDW (11.5-15.5) % Plt Count (150-450) k/uL Neutrophils % % Lymphocytes % % Monocytes % % Eosinophils % % Basophils % % Neutrophils # (1.3-7.7) k/uL Lymphocytes # (1.0-4.8) k/uL Monocytes # (0-1.0) k/uL Eosinophils # (0-0.7) k/uL Basophils # (0-0.2) k/uL Hypochromasia Macrocytosis Sodium (137-145) mmol/L Potassium (3.5-5.1) mmol/L Chloride (98-107) mmol/L Carbon Dioxide (22-30) mmol/L Anion Gap mmol/L BUN (7-17) mg/dL Creatinine (0.52-1.04) mg/dL Est GFR (CKD-EPI)AfAm (>60 ml/min/1.73 sqM) Est GFR (CKD-EPI)NonAf (>60 ml/min/1.73 sqM) Glucose (74-99) mg/dL POC Glucose (mg/dL) 555 H 142 H (75-99) mg/dL POC Glu [place] ID Linda Chisholm A Robinson, Kelly, A Calcium (8.4-10.2) mg/dL Total Bilirubin (0.2-1.3) mg/dL AST (14-36) U/L ALT (9-52) U/L Alkaline Phosphatase (38-126) U/L Total Protein (6.3-8.2) g/dL Albumin (3.5-5.0) g/dL Urine Color Colorless Urine Appearance Clear (Clear) Urine pH 5.5 (5.0-8.0) Ur Specific [place] 1.009 (1.001-1.035) Urine Protein Negative (Negative) Urine Glucose (UA) 4+ H (Negative) Urine Ketones Negative (Negative) Urine Blood Negative (Negative) Urine Nitrite Negative (Negative) Urine Bilirubin Negative (Negative) Urine Urobilinogen <2.0 (<2.0) mg/dL Ur Leukocyte Esterase Negative (Negative) Acetone, Qual (Negative) 01/17/19 Range/Units 23:01 WBC (3.8-10.6) k/uL RBC (3.80-5.40) m/uL Hgb (11.4-16.0) gm/dL Hct (34.0-46.0) % MCV (80.0-100.0) fL MCH (25.0-35.0) pg MCHC (31.0-37.0) g/dL RDW (11.5-15.5) % Plt Count (150-450) k/uL Neutrophils % % Lymphocytes % % Monocytes % % Eosinophils % % Basophils % % Neutrophils # (1.3-7.7) k/uL Lymphocytes # (1.0-4.8) k/uL Monocytes # (0-1.0) k/uL Eosinophils # (0-0.7) k/uL Basophils # (0-0.2) k/uL Hypochromasia Macrocytosis Sodium (137-145) mmol/L Potassium (3.5-5.1) mmol/L Chloride (98-107) mmol/L Carbon Dioxide (22-30) mmol/L Anion Gap mmol/L BUN (7-17) mg/dL Creatinine (0.52-1.04) mg/dL Est GFR (CKD-EPI)AfAm (>60 ml/min/1.73 sqM) Est GFR (CKD-EPI)NonAf (>60 ml/min/1.73 sqM) Glucose (74-99) mg/dL POC Glucose (mg/dL) 147 H (75-99) mg/dL POC Glu [place] ID Linda Chisholm A Calcium (8.4-10.2) mg/dL Total Bilirubin (0.2-1.3) mg/dL AST (14-36) U/L ALT (9-52) U/L Alkaline Phosphatase (38-126) U/L Total Protein (6.3-8.2) g/dL Albumin (3.5-5.0) g/dL Urine Color Urine Appearance (Clear) Urine pH (5.0-8.0) Ur Specific [place] (1.001-1.035) Urine Protein (Negative) Urine Glucose (UA) (Negative) Urine Ketones (Negative) Urine Blood (Negative) Urine Nitrite (Negative) Urine Bilirubin (Negative) Urine Urobilinogen (<2.0) mg/dL Ur Leukocyte Esterase (Negative) Acetone, Qual (Negative) Disposition Clinical Impression: Hyperglycemia Disposition: HOME SELF-CARE Condition: Good Instructions (If sedation given, give patient instructions): Diabetic Hyperglycemia (ED) Additional Instructions: Monitor sugars closely. Follow-up through primary care physician for recheck in 1-2 days. Return to the emergency department immediately for any new, worsening, or concerning symptoms. Is patient prescribed a controlled substance at d/c from ED?: No Referrals: Libia Bhatt DO [Primary Care Provider] - 1-2 days Time of Disposition: 23:02
[2019-01-17 18:39] LABS: Glucose,Whole Blood >600 mg/dL (75-99)
[2019-01-17 19:03] LABS: ALT 26 U/L (9-52); AST 20 U/L (14-36); Albumin 3.8 g/dL (3.5-5.0); Alkaline Phosphatase 141 U/L (38-126); Anion Gap 13 mmol/L; Blood Urea Nitrogen 44 mg/dL (7-17); Carbon Dioxide 27 mmol/L (22-30); Chloride 91 mmol/L (98-107); Potassium 4.1 mmol/L (3.5-5.1); Sodium 131 mmol/L (137-145); Total Bilirubin 0.6 mg/dL (0.2-1.3); Total Protein 6.2 g/dL (6.3-8.2)
[2019-01-17 19:08] LABS: Appearance,Urine Clear (Clear); Bilirubin,Urine Negative (Negative); Blood,Urine Negative (Negative); Color,Urine Colorless; Glucose,Urine (UA) 4+ (Negative); Ketones,Urine Negative (Negative); Leukocyte Esterase,Urine Negative (Negative); Nitrite,Urine Negative (Negative); PH, Urine 5.5 (5.0-8.0); Protein,Urine Negative (Negative); Specific Gravity,Urine 1.009 (1.001-1.035); Urobilinogen,Urine <2.0 mg/dL (<2.0)
[2019-01-17 19:11] LABS: Basophils % (A) 1 %; Eosinophils # (A) 0.1 k/uL (0-0.7); Eosinophils % (A) 2 %; HCT 37.3 % (34.0-46.0); HGB 11.6 gm/dL (11.4-16.0); Hypochromasia Slight; Lymphocytes # (A) 1.1 k/uL (1.0-4.8); Lymphocytes % (A) 19 %; MCH 30.9 pg (25.0-35.0); MCHC 31.2 g/dL (31.0-37.0); Macrocytosis Slight; Mean Platelet Volume 9.3; Monocytes # (A) 0.5 k/uL (0-1.0); Monocytes % (A) 9 %; Neutrophils # (A) 3.8 k/uL (1.3-7.7); Neutrophils % (A) 68 %; Platelet Count 186 k/uL (150-450); RBC 3.76 m/uL (3.80-5.40); RDW 15.9 % (11.5-15.5); WBC 5.6 k/uL (3.8-10.6)
[2019-01-17 19:14] LABS: MCV 99.1 fL (80.0-100.0)
[2019-01-17 19:25] LABS: Glucose 691 mg/dL (74-99)
[2019-01-17] MEDS ORDERED: INSULIN REGULAR 100 UNIT/ML VIAL IV STA (19:57)
[2019-01-17] MEDS ORDERED: SODIUM CHLORIDE 0.9% 500 ML 500 ML IV ONE (19:59)
[2019-01-17 20:12] LABS: Glucose,Whole Blood 555 mg/dL (75-99)
[2019-01-17 22:01] LABS: Glucose,Whole Blood 142 mg/dL (75-99)
[2019-01-17 23:02] LABS: Glucose,Whole Blood 147 mg/dL (75-99)
[2019-01-17 23:17] VITALS: BP 125/55; PULSE 67; RESP 20
== END 2019-01-17 23:15 | disposition home or self-care (01) ==
LOC: EC 17:46
DX: E11.65 Type 2 diabetes mellitus with hyperglycemia (principal); R79.89 Other specified abnormal findings of blood chemistry; I25.10 Atherosclerotic heart disease of native coronary artery without angina pectoris; E55.9 Vitamin D deficiency, unspecified; Z95.818 Presence of other cardiac implants and grafts; Z86.711 Personal history of pulmonary embolism; Z86.718 Personal history of other venous thrombosis and embolism; Z79.4 Long term (current) use of insulin; Z79.01 Long term (current) use of anticoagulants; Z79.899 Other long term (current) drug therapy; Z88.1 Allergy status to other antibiotic agents; Z88.0 Allergy status to penicillin
CPT/HCPCS: 36415; 80053; 81003; 82009; 85025; 96360; 96361; 99283

== ENCOUNTER → 2019-02-01 | Outpatient (CLI) | payer MEDICARE, BC ==
--- NOTE | 2019-02-01 09:35 | USB ---
Reason for exam: follow-up at short interval from prior study. History: Benign excisional biopsy of the right breast, 1989. Physical Findings: Nurse did not find any significant physical abnormalities on exam. US Breast RT Right complete breast ultrasound includes all four quadrants, the retroareolar region and axilla. Finding demonstrates a 4 x 4 x 4mm oval, cystic lesion at 12 o'clock and a 4 x 3 x 4mm oval, mixed lesion at 11 o'clock. Unchanged from previous. These results were verbally communicated with the patient and result sheet given to the patient on 02/01/19. ASSESSMENT: Benign, BI-RAD 2 RECOMMENDATION: Routine screening mammogram of both breasts in 6 months. Back on schedule.
== END | disposition home or self-care (01) ==
LOC: RADUSWWP 07:39
PROVIDERS: ATTEND Internal Medicine Nephrology
DX: N63.10 Unspecified lump in the right breast, unspecified quadrant (principal)

== ENCOUNTER → 2019-03-03 | Outpatient (CLI) | payer MEDICARE, BC ==
--- NOTE | 2019-03-03 12:31 | XR ---
EXAMINATION TYPE: XR hand complete RT DATE OF EXAM: 03/03/2019 COMPARISON: NONE HISTORY: Pain TECHNIQUE: Three views are submitted. FINDINGS: There is a deformity at the base of the proximal phalanx of the fifth digit suspicious for hairline f racture. Correlate with point tenderness. Remaining osseous structures intact. IMPRESSION: 1. Findings fracture base proximal phalanx fifth digit.
--- NOTE | 2019-03-03 12:34 | XR ---
EXAMINATION TYPE: XR finger RT DATE OF EXAM: 03/03/2019 COMPARISON: NONE HISTORY: Pain and swelling TECHNIQUE: 2 views submitted FINDINGS: There is a fracture of the base of the proximal phalanx of the fifth digit. Joint spaces ar e preserved. IMPRESSION: Mildly displaced fracture base proximal phalanx fifth digit.
--- NOTE | 2019-03-03 13:58 | US ---
EXAMINATION TYPE: US venous doppler duplex UE RT DATE OF EXAM: 03/03/2019 COMPARISON: US 2014 CLINICAL HISTORY: Localized swelling mass/lump R22.31. Swelling/mass right upper extremity. Hx PE. P t on coumadin. SIDE PERFORMED: Right Scanned right posterior forearm area of swelling. Non-compressible superficial vessels visualized without color flow. Right Arm: Negative for DVT IMPRESSION: 1. No diagnostic evidence of DVT as visualized.
== END ==
LOC: RADUSWWP 11:37
PROVIDERS: ATTEND Nurse Practitioner Family
DX: R22.31 Localized swelling, mass and lump, right upper limb (principal); S62.616A Displaced fracture of proximal phalanx of right little finger, initial encounter for closed fracture

== ENCOUNTER → 2019-04-18 | Outpatient (CLI) | payer MEDICARE, BC ==
--- NOTE | 2019-04-18 10:39 | US ---
EXAMINATION TYPE: US kidneys/renal and bladder DATE OF EXAM: 04/18/2019 COMPARISON: Previous exam dated 11/17/2018 ultrasound kidneys CLINICAL HISTORY: N18.4 Chronic kidney disease, stage 4. EXAM MEASUREMENTS: Right Kidney: 8.5 x 3.5 x 3.5 cm Left Kidney: 8.1 x 3.7 x 3.9 cm Technically difficult and somewhat limited study due to patients large body habitus. Right Kidney: 2 cysts noted largest measuring 1.3 x 0.8 x 1.1cm Left Kidney: Hypoechoic focus noted measuring 1.4 x 1.2 x 1.8cm similar to prior exam Bladder: wnl Bilateral Jets seen: yes There is no evidence for hydronephrosis at this point in time. No nephrolithiasis is seen. Cortical medullary differentiation is maintained, cortical echogenicity is increased. The urinary bladder is a nechoic. Bilateral ureteral jets are seen. IMPRESSION: Findings are essentially stable. Renal sizes as described. Findings compatible with medical renal dis ease.
== END | disposition home or self-care (01) ==
LOC: RADUSMAIN 09:08
PROVIDERS: ATTEND Internal Medicine Nephrology
DX: N18.4 Chronic kidney disease, stage 4 (severe) (principal)
CPT/HCPCS: 76770

== ENCOUNTER → 2019-05-29 | Outpatient (CLI) | payer MEDICARE, BC ==
--- NOTE | 2019-05-29 14:50 | XR ---
Fifth digit right hand HISTORY: Fracture 2 views of the fifth digit right hand Correlation to prior exam 03/03/2019 Bone mineralization, joint spaces and alignment are maintained. IMPRESSION: No fracture or dislocation is evident.
== END | disposition home or self-care (01) ==
LOC: RADXRYALE 13:52
PROVIDERS: ATTEND Nurse Practitioner Family
DX: S62.306A Unspecified fracture of fifth metacarpal bone, right hand, initial encounter for closed fracture (principal)

== ENCOUNTER → 2019-06-23 | Outpatient (CLI) | payer MEDICARE, BC ==
--- NOTE | 2019-06-23 12:09 | US ---
EXAMINATION TYPE: US venous doppler duplex LE RT DATE OF EXAM: 06/23/2019 12:00 PM COMPARISON: NONE CLINICAL HISTORY: M79.604 Pain in right leg, Z86.718 M25.561. pain SIDE PERFORMED: Right TECHNIQUE: The lower extremity deep venous system is examined utilizing real time linear array sonog isaac with graded compression, doppler sonography and color-flow sonography. VESSELS IMAGED: External Iliac Vein (EIV) Common Femoral Vein Deep Femoral Vein Greater Saphenous Vein * Femoral Vein Popliteal Vein Small Saphenous Vein * Proximal Calf Veins (* superficial vessels) Right Leg: Negative for DVT IMPRESSION: No evidence for DVT.
== END | disposition home or self-care (01) ==
LOC: RADUSWWP 11:37
PROVIDERS: ATTEND Nurse Practitioner Family
DX: M79.604 Pain in right leg (principal); M25.561 Pain in right knee; Z86.718 Personal history of other venous thrombosis and embolism

== ENCOUNTER 2019-08-24 15:38 | Emergency (ER) | payer MEDICARE, BC ==
[2019-08-24 15:47] VITALS: TEMP 97.7
[2019-08-24 16:44] VITALS: RESP 18
[2019-08-24 18:15] LABS: Basophils # (A) 0.1 k/uL (0-0.2); Basophils % (A) 2 %; Eosinophils # (A) 0.2 k/uL (0-0.7); Eosinophils % (A) 3 %; HCT 36.7 % (34.0-46.0); HGB 11.9 gm/dL (11.4-16.0); Lymphocytes # (A) 1.1 k/uL (1.0-4.8); Lymphocytes % (A) 17 %; MCH 30.2 pg (25.0-35.0); MCHC 32.4 g/dL (31.0-37.0); MCV 93.2 fL (80.0-100.0); Mean Platelet Volume 8.5; Monocytes # (A) 0.5 k/uL (0-1.0); Monocytes % (A) 8 %; Neutrophils # (A) 4.6 k/uL (1.3-7.7); Neutrophils % (A) 70 %; Platelet Count 204 k/uL (150-450); RBC 3.93 m/uL (3.80-5.40); RDW 14.2 % (11.5-15.5); WBC 6.7 k/uL (3.8-10.6)
[2019-08-24 18:24] LABS: Appearance,Urine Clear (Clear); Bilirubin,Urine Negative (Negative); Blood,Urine Negative (Negative); Color,Urine Colorless; Glucose,Urine (UA) 4+ (Negative); Ketones,Urine Negative (Negative); Leukocyte Esterase,Urine Negative (Negative); Nitrite,Urine Negative (Negative); Protein,Urine Negative (Negative); Specific Gravity,Urine 1.008 (1.001-1.035); Urobilinogen,Urine <2.0 mg/dL (<2.0)
[2019-08-24 18:25] LABS: Albumin 4.2 g/dL (3.5-5.0); Calcium 8.9 mg/dL (8.4-10.2); Potassium 4.2 mmol/L (3.5-5.1); Total Bilirubin 0.5 mg/dL (0.2-1.3); Total Protein 7.1 g/dL (6.3-8.2)
[2019-08-24 19:02] LABS: Glucose,Whole Blood 461 mg/dL (75-99)
[2019-08-24 19:07] VITALS: BP 166/81; PULSE 66
--- NOTE | 2019-08-24 21:39 | ED ---
General Adult HPI - General Chief complaint: Recheck/Abnormal Lab/Rx Stated complaint: elevated blood sugar Time Seen by Provider: 08/24/19 16:16 Source: patient Mode of arrival: ambulatory Limitations: no limitations - History of Present Illness Initial comments: The patient is a 64 year female who presents to the emergency department with reported high blood sugars. The patient is a diabetic. States that she does have an insulin pump in place. She's had it since 1986. Recently the pump was replaced in May. It contains NovoLog. She has had some issues with the pump before in the past. Reports that last night she was to change the site of her insulin pump. Reports that after she changed her pump out that she was checking her blood sugars as she normally does. They consistently were increasing. The last she checked, it was over 600 and therefore she came into the emergency room for evaluation. She states that she is asymptomatic. No history of DKA. No nausea or vomiting. Denies any chest pain or shortness breath. No fevers or chills. There are no other alleviating, precipitating or modified factors - Related Data Home Medications Medication Instructions Recorded Confirmed Ergocalciferol (Vitamin D2) 50,000 unit PO SA 07/13/16 08/24/19 [Drisdol] Allopurinol [Zyloprim] 50 mg PO DAILY 11/16/18 08/24/19 Cyanocobalamin (Vitamin B-12) 500 mcg PO DAILY 11/16/18 08/24/19 [Vitamin B-12] Furosemide [Lasix] 40 mg PO DAILY 11/26/18 08/24/19 Magnesium Oxide 400 mg PO DAILY 01/17/19 08/24/19 Potassium Chloride ER [K-Dur 10] 10 meq PO DAILY 01/17/19 08/24/19 Warfarin Sodium 6 mg PO MOWEFRSA 01/17/19 08/24/19 Warfarin Sodium [Coumadin] 4 mg PO SUTUTH 01/17/19 08/24/19 Insulin Aspart (For Pump) [NovoLOG 0.01 unit SQ-PUMP CONTINUOUS 08/24/19 08/24/19 (For Pump)] Previous Rx's Medication Instructions Recorded Pravastatin Sodium [Pravachol] 40 mg PO HS tab 12/07/18 Allergies Allergy/AdvReac Type Severity Reaction Status Date / Time azithromycin Allergy Unknown Rash/Hives Verified 08/24/19 16:25 amoxicillin Allergy Rash/Hives Verified 08/24/19 16:25 metronidazole [From Flagyl] Allergy Unknown Verified 08/24/19 16:25 Iodinated Contrast Media AdvReac KIDNEY Verified 08/24/19 16:25 [Iodinated Contrast- Oral and IV Dye] Review of Systems ROS Statement: Those systems with pertinent positive or pertinent negative responses have been documented in the HPI. ROS Other: All systems not noted in ROS Statement are negative. Past Medical History Past Medical History: Coronary Artery Disease (CAD), Diabetes Mellitus, Deep Vein Thrombosis (DVT), Hyperlipidemia, Hypertension, Pulmonary Embolus (PE), Renal Disease Additional Past Medical History / Comment(s): Vitamin D Deficency, pt has insulin pump, elevated liver enzymes History of Any Multi-Drug Resistant Organisms: None Reported Past Surgical History: Appendectomy, Cholecystectomy Additional Past Surgical History / Comment(s): Breast Biopsy, Carapal tunnel to right hand, Heart Catherization, colonoscopy 08/2014 Past Anesthesia/Blood Transfusion Reactions: No Reported Reaction Past Psychological History: No Psychological Hx Reported Smoking Status: Never smoker Past Alcohol Use History: Occasional Past Drug Use History: None Reported - Past Family History Mother Family Medical History: No Reported History Additional Family Medical History / Comment(s): heart disease Father Additional Family Medical History / Comment(s): heart disease General Exam Limitations: no limitations General appearance: alert, in no apparent distress Head exam: Present: atraumatic, normocephalic, normal inspection Eye exam: Present: normal appearance, PERRL, EOMI. Absent: scleral icterus, conjunctival injection, periorbital swelling ENT exam: Present: normal exam, mucous membranes moist Neck exam: Present: normal inspection. Absent: tenderness, meningismus, lymphadenopathy Respiratory exam: Present: normal lung sounds bilaterally. Absent: respiratory distress, wheezes, rales, rhonchi, stridor Cardiovascular Exam: Present: regular rate, normal rhythm, normal heart sounds. Absent: systolic murmur, diastolic murmur, rubs, gallop, clicks GI/Abdominal exam: Present: soft, normal bowel sounds, other (insulin pump in place, right lateral abd wall. No bleeding or cellulitic signs). Absent: distended, tenderness, guarding, rebound, rigid Extremities exam: Present: normal inspection, full ROM, normal capillary refill. Absent: tenderness, pedal edema, joint swelling, calf tenderness Back exam: Present: normal inspection Neurological exam: Present: alert, oriented X3, CN II-XII intact Psychiatric exam: Present: normal affect, normal mood Skin exam: Present: warm, dry, intact, normal color. Absent: rash Course Vital Signs 08/24/19 08/24/19 08/24/19 15:44 16:35 19:04 Temperature 97.7 F Pulse Rate 74 69 66 Respiratory 20 18 18 Rate Blood Pressure 184/79 161/63 166/81 O2 Sat by Pulse 95 99 97 Oximetry Medical Decision Making - Medical Decision Making Upon arrival the patient is placed into room 26. A thorough history and physical exam was performed. Laboratory studies were conducted. WBC 6.7, hemoglobin 0.9, hematocrit 36.7, platelets 204. Sodium is 134. Creatinine 2.8 which is the patient's baseline. Glucose is 585. Anion gap is 14. Bicarb 29. Negative ketones in the urine. 4+ glucose. I did discuss these results with the patient. No signs of DKA at this time. I did troubleshoot the patient's insulin pump. We did call [employer] and discuss the pump with them. I also called the patient's personal retail account representative for her pump. She did also troubleshoot the pump with me. It does appear that it is working appropriately. The patient's connection at the skin surface may have been bent so she does have me remove it. We do place a new subcutaneous connection. I do look at the patient's pump. It does appear to be working appropriately. We do give the patient a 10 unit bolus. Her blood sugar is rechecked and is 461. The patient's blood sugar has dropped over 100 because of the bolus. The patient does feel comfortable going home at this time. She is instructed to give herself another 10 unit bolus in 1 hour. She will then use her sliding scale in the morning. And from the patient will take a period of time to get her blood sugars backed out of normal range. She needs to call retail account representative in the morning. She does want her to follow-up in the diabetic clinic in [place] on Wednesday. The patient was in agreement with the treatment plan and she was discharged home in stable condition. She is to return if she has any new or w orsening symptoms - Lab Data Result diagrams: 08/24/19 18:02 08/24/19 18:02 Lab Results 08/24/19 08/24/19 08/24/19 Range/Units 18:02 18:02 18:05 WBC 6.7 (3.8-10.6) k/uL RBC 3.93 (3.80-5.40) m/uL Hgb 11.9 (11.4-16.0) gm/dL Hct 36.7 (34.0-46.0) % MCV 93.2 (80.0-100.0) fL MCH 30.2 (25.0-35.0) pg MCHC 32.4 (31.0-37.0) g/dL RDW 14.2 (11.5-15.5) % Plt Count 204 (150-450) k/uL Neutrophils % 70 % Lymphocytes % 17 % Monocytes % 8 % Eosinophils % 3 % Basophils % 2 % Neutrophils # 4.6 (1.3-7.7) k/uL Lymphocytes # 1.1 (1.0-4.8) k/uL Monocytes # 0.5 (0-1.0) k/uL Eosinophils # 0.2 (0-0.7) k/uL Basophils # 0.1 (0-0.2) k/uL Sodium 134 L (137-145) mmol/L Potassium 4.2 (3.5-5.1) mmol/L Chloride 91 L (98-107) mmol/L Carbon Dioxide 29 (22-30) mmol/L Anion Gap 14 mmol/L BUN 42 H (7-17) mg/dL Creatinine 2.82 H (0.52-1.04) mg/dL Est GFR (CKD-EPI)AfAm 19 (>60 ml/min/1.73 sqM) Est GFR (CKD-EPI)NonAf 17 (>60 ml/min/1.73 sqM) Glucose 585 H* (74-99) mg/dL POC Glucose (mg/dL) (75-99) mg/dL POC Glu Distribution Tech ID Calcium 8.9 (8.4-10.2) mg/dL Total Bilirubin 0.5 (0.2-1.3) mg/dL AST 19 (14-36) U/L ALT 21 (9-52) U/L Alkaline Phosphatase 164 H (38-126) U/L Total Protein 7.1 (6.3-8.2) g/dL Albumin 4.2 (3.5-5.0) g/dL Urine Color Colorless Urine Appearance Clear (Clear) Urine pH 6.0 (5.0-8.0) Ur Specific [place] 1.008 (1.001-1.035) Urine Protein Negative (Negative) Urine Glucose (UA) 4+ H (Negative) Urine Ketones Negative (Negative) Urine Blood Negative (Negative) Urine Nitrite Negative (Negative) Urine Bilirubin Negative (Negative) Urine Urobilinogen <2.0 (<2.0) mg/dL Ur Leukocyte Esterase Negative (Negative) 08/24/19 Range/Units 19:00 WBC (3.8-10.6) k/uL RBC (3.80-5.40) m/uL Hgb (11.4-16.0) gm/dL Hct (34.0-46.0) % MCV (80.0-100.0) fL MCH (25.0-35.0) pg MCHC (31.0-37.0) g/dL RDW (11.5-15.5) % Plt Count (150-450) k/uL Neutrophils % % Lymphocytes % % Monocytes % % Eosinophils % % Basophils % % Neutrophils # (1.3-7.7) k/uL Lymphocytes # (1.0-4.8) k/uL Monocytes # (0-1.0) k/uL Eosinophils # (0-0.7) k/uL Basophils # (0-0.2) k/uL Sodium (137-145) mmol/L Potassium (3.5-5.1) mmol/L Chloride (98-107) mmol/L Carbon Dioxide (22-30) mmol/L Anion Gap mmol/L BUN (7-17) mg/dL Creatinine (0.52-1.04) mg/dL Est GFR (CKD-EPI)AfAm (>60 ml/min/1.73 sqM) Est GFR (CKD-EPI)NonAf (>60 ml/min/1.73 sqM) Glucose (74-99) mg/dL POC Glucose (mg/dL) 461 H (75-99) mg/dL POC Glu Distribution Tech ID Nathan, Mica Calcium (8.4-10.2) mg/dL Total Bilirubin (0.2-1.3) mg/dL AST (14-36) U/L ALT (9-52) U/L Alkaline Phosphatase (38-126) U/L Total Protein (6.3-8.2) g/dL Albumin (3.5-5.0) g/dL Urine Color Urine Appearance (Clear) Urine pH (5.0-8.0) Ur Specific [place] (1.001-1.035) Urine Protein (Negative) Urine Glucose (UA) (Negative) Urine Ketones (Negative) Urine Blood (Negative) Urine Nitrite (Negative) Urine Bilirubin (Negative) Urine Urobilinogen (<2.0) mg/dL Ur Leukocyte Esterase (Negative) Disposition Clinical Impression: Hyperglycemia Disposition: HOME SELF-CARE Condition: Stable Instructions (If sedation given, give patient instructions): Diabetic Hyperglycemia (ED) Additional Instructions: Please give yourself another bolus around 10:30 PM tonight of 10 units. Please call your retail account representative in the morning. She does recommend you flower picker your new attachment devices at the clinic on Wednesday. Return to the emergency room for any new or worsening symptoms Is patient prescribed a controlled substance at d/c from ED?: No Referrals: Libia Bhatt DO [Primary Care Provider] - 1-2 days Time of Disposition: 21:39
== END 2019-08-24 21:48 | disposition home or self-care (01) ==
LOC: EC 15:38
DX: E11.65 Type 2 diabetes mellitus with hyperglycemia (principal); I25.10 Atherosclerotic heart disease of native coronary artery without angina pectoris; I10 Essential (primary) hypertension; E55.9 Vitamin D deficiency, unspecified; Z88.0 Allergy status to penicillin; Z88.1 Allergy status to other antibiotic agents; Z91.041 Radiographic dye allergy status; Z79.01 Long term (current) use of anticoagulants; Z79.4 Long term (current) use of insulin; Z79.899 Other long term (current) drug therapy; Z86.718 Personal history of other venous thrombosis and embolism; Z86.711 Personal history of pulmonary embolism; Z96.41 Presence of insulin pump (external) (internal); Z95.818 Presence of other cardiac implants and grafts
CPT/HCPCS: 36415; 80053; 81003; 85025; 99284

== ENCOUNTER → 2019-10-03 | Outpatient (CLI) | payer MEDICARE, BC ==
[2019-10-03 09:19] LABS: HCT 36.4 % (34.0-46.0); HGB 11.9 gm/dL (11.4-16.0); MCH 30.6 pg (25.0-35.0); MCHC 32.8 g/dL (31.0-37.0); MCV 93.4 fL (80.0-100.0); Mean Platelet Volume 7.6; Platelet Count 228 k/uL (150-450); RDW 13.9 % (11.5-15.5); WBC 8.3 k/uL (3.8-10.6)
[2019-10-03 16:49] LABS: % Iron Saturation 18.91 (12.00-45.00); ALT 17 U/L (8-44); AST 25 U/L (13-35); Albumin/Globulin Ratio 2.26 (1.60-3.17); Alkaline Phosphatase 174 U/L (41-126); Bilirubin, Conjugated <0.20 mg/dL (0.20-0.40); Ferritin 322.6 ng/mL (10.0-291.0); Globulin 1.9 g/dL (1.6-3.3); Iron 52 ug/dL (50-170); Total Bilirubin 0.4 mg/dL (0.3-1.2); Total Iron Binding Capacity 275 ug/dL (228-460); Total Protein 6.2 g/dL (6.2-8.2)
[2019-10-04 11:34] LABS: ANA Pattern Homogeneous; ANA Pattern 2 Nucleolar
== END | disposition home or self-care (01) ==
LOC: LABWHC1 08:20
PROVIDERS: ATTEND Physician Assistant
DX: R94.5 Abnormal results of liver function studies (principal)
CPT/HCPCS: 36415; 80076; 82728; 83540; 83550; 85027; 85610; 86038; 86039

== ENCOUNTER → 2020-08-27 | Outpatient (CLI) | payer MEDICARE, BC ==
--- NOTE | 2020-08-27 11:13 | CT ---
EXAMINATION TYPE: CT abdomen pelvis wo con DATE OF EXAM: 08/27/2020 COMPARISON: 06/05/2018 INDICATION: Low back pain and hematuria DLP: 1125.00 mGycm, Automated exposure control for dose reduction was used. CONTRAST: 0 mL of Isovue 300. Study performed without Oral Contrast TECHNIQUE: Axial images were obtained from above the diaphragm to the pubic rami in the axial plane a t 5 mm thick sections. Reconstructed images are reviewed on the computer in the coronal plane. FINDINGS: Limited CT sections are obtained the lung bases. The lung bases are clear. CT ABDOMEN: Liver: There is some air within the extrahepatic biliary tree. Spleen: Normal Pancreas: Normal Adrenal glands: The adrenal glands are normal. Gallbladder: Normal Kidneys: No masses are evident. No hydronephrosis is present. There is a 1.1 cm cyst on the superio r pole right kidney. Delayed images were obtained through the kidneys, which remain unremarkable. Aorta: Vascular calcification is within the aorta. Inferior vena cava: Normal. CT PELVIS: Loops of bowel within the abdomen and pelvis are normal. There are loops of bowel which are incom pletely distended or lack oral contrast limiting their evaluation. Appendix: Not identified. No suspicious inflammatory changes or dilated tubular structures are eviden t. Urinary bladder: Normal. Genitourinary structures: Uterus is normal. Adnexal regions are clear. Osseous structures: No suspicious lytic or sclerotic lesions. IMPRESSIONS: 1. No suspicious acute abdominal abnormalities
== END | disposition home or self-care (01) ==
LOC: RADCTMAIN 07:40
PROVIDERS: ATTEND Family Medicine
DX: R31.9 Hematuria, unspecified (principal); M54.5 Low back pain
CPT/HCPCS: 74176

== ENCOUNTER 2021-05-11 02:54 | Emergency (ER) | payer MEDICARE, BC ==
[2021-05-11 03:07] VITALS: TEMP 97.6
[2021-05-11] MEDS ORDERED: ORPHENADRINE 30 MG/ML 2 ML VIAL IVP STA (03:30)
--- NOTE | 2021-05-11 03:41 | ED ---
Back Pain HPI - General Chief Complaint: Back Pain/Injury Stated Complaint: Back Spasms Time Seen by Provider: 05/11/21 03:09 Source: patient Limitations: no limitations - History of Present Illness Complaint: back pain Onset/Timin -: hour(s) Similar Symptoms Previously: No Place: home Radiation: none Severity: moderate Quality: other Consistency: intermittent Improves With: none Worsens With: none Associated Symptoms: denies other symptoms - Related Data Home Medications Medication Instructions Recorded Confirmed Ergocalciferol (Vitamin D2) 50,000 unit PO SA 07/13/16 08/24/19 [Drisdol] Cyanocobalamin (Vitamin B-12) 500 mcg PO DAILY 11/16/18 08/24/19 [Vitamin B-12] allopurinoL [Zyloprim] 50 mg PO DAILY 11/16/18 08/24/19 Furosemide [Lasix] 40 mg PO DAILY 11/26/18 08/24/19 Magnesium Oxide 400 mg PO DAILY 01/17/19 08/24/19 Potassium Chloride ER [K-Dur 10] 10 meq PO DAILY 01/17/19 08/24/19 Warfarin Sodium 6 mg PO MOWEFRSA 01/17/19 08/24/19 Warfarin Sodium [Coumadin] 4 mg PO SUTUTH 01/17/19 08/24/19 Insulin Aspart (For Pump) [NovoLOG 0.01 unit SQ-PUMP CONTINUOUS 08/24/19 08/24/19 (For Pump)] Previous Rx's Medication Instructions Recorded Pravastatin Sodium [Pravachol] 40 mg PO HS tab 12/07/18 Magnesium Oxide [Mag-Ox] 400 mg PO DAILY #30 tablet 05/11/21 Methocarbamol [Robaxin-750] 750 mg PO TID PRN #30 tablet 05/11/21 Allergies Allergy/AdvReac Type Severity Reaction Status Date / Time azithromycin Allergy Unknown Rash/Hives Verified 05/11/21 03:07 amoxicillin Allergy Rash/Hives Verified 05/11/21 03:07 metronidazole [From Flagyl] Allergy Unknown Verified 05/11/21 03:07 Iodinated Contrast Media AdvReac KIDNEY Verified 05/11/21 03:07 [Iodinated Contrast- Oral and IV Dye] Review of Systems ROS Statement: Those systems with pertinent positive or pertinent negative responses have been documented in the HPI. ROS Other: All systems not noted in ROS Statement are negative. Constitutional: Denies: fever, chills, weakness Respiratory: Denies: cough, dyspnea Cardiovascular: Denies: chest pain, palpitations Gastrointestinal: Denies: abdominal pain, vomiting, diarrhea Genitourinary: Denies: dysuria, frequency, hematuria Musculoskeletal: Reports: as per HPI, back pain Skin: Denies: rash Neurological: Denies: headache, weakness, numbness, paresthesias Past Medical History Past Medical History: Coronary Artery Disease (CAD), Diabetes Mellitus, Deep Vein Thrombosis (DVT), Hyperlipidemia, Hypertension, Pulmonary Embolus (PE), Renal Disease Additional Past Medical History / Comment(s): Vitamin D Deficency, pt has insulin pump, elevated liver enzymes History of Any Multi-Drug Resistant Organisms: None Reported Past Surgical History: Appendectomy, Cholecystectomy Additional Past Surgical History / Comment(s): Breast Biopsy, Carapal tunnel to right hand, Heart Catherization, colonoscopy 08/2014 Past Anesthesia/Blood Transfusion Reactions: No Reported Reaction Past Psychological History: No Psychological Hx Reported Smoking Status: Never smoker Past Alcohol Use History: Occasional Past Drug Use History: None Reported - Past Family History Mother Family Medical History: No Reported History Additional Family Medical History / Comment(s): heart disease Father Additional Family Medical History / Comment(s): heart disease General Exam Limitations: no limitations General appearance: alert, in no apparent distress Head exam: Present: atraumatic, normocephalic Eye exam: Present: normal appearance. Absent: scleral icterus, conjunctival injection Neck exam: Present: normal inspection, full ROM. Absent: tenderness Respiratory exam: Present: normal lung sounds bilaterally. Absent: respiratory distress, wheezes, rales, rhonchi, stridor, chest wall tenderness Cardiovascular Exam: Present: regular rate, normal rhythm, normal heart sounds. Absent: systolic murmur, diastolic murmur, rubs, gallop GI/Abdominal exam: Present: soft. Absent: distended, tenderness, guarding, rebound, rigid, mass Extremities exam: Present: normal inspection, normal capillary refill. Absent: pedal edema, calf tenderness Back exam: Present: paraspinal tenderness. Absent: CVA tenderness (R), CVA tenderness (L), vertebral tenderness Neurological exam: Present: alert. Absent: motor sensory deficit Skin exam: Present: warm, dry, intact, normal color. Absent: rash Course Vital Signs 05/11/21 05/11/21 03:04 04:10 Temperature 97.6 F Pulse Rate 40 L 74 Respiratory 18 16 Rate Blood Pressure 148/78 160/67 O2 Sat by Pulse 97 96 Oximetry Medical Decision Making - Lab Data Result diagrams: 05/11/21 03:42 05/11/21 03:42 Lab Results 05/11/21 05/11/21 Range/Units 03:42 03:42 WBC 7.6 (3.8-10.6) k/uL RBC 3.78 L (3.80-5.40) m/uL Hgb 11.6 (11.4-16.0) gm/dL Hct 34.7 (34.0-46.0) % MCV 91.7 (80.0-100.0) fL MCH 30.7 (25.0-35.0) pg MCHC 33.5 (31.0-37.0) g/dL RDW 14.6 (11.5-15.5) % Plt Count 185 (150-450) k/uL MPV 9.5 Neutrophils % 66 % Lymphocytes % 22 % Monocytes % 8 % Eosinophils % 3 % Basophils % 1 % Neutrophils # 5.1 (1.3-7.7) k/uL Lymphocytes # 1.7 (1.0-4.8) k/uL Monocytes # 0.6 (0-1.0) k/uL Eosinophils # 0.2 (0-0.7) k/uL Basophils # 0.1 (0-0.2) k/uL Sodium 140 (137-145) mmol/L Potassium 3.9 (3.5-5.1) mmol/L Chloride 103 (98-107) mmol/L Carbon Dioxide 27 (22-30) mmol/L Anion Gap 10 mmol/L BUN 56 H (7-17) mg/dL Creatinine 3.22 H (0.52-1.04) mg/dL Est GFR (CKD-EPI)AfAm 16 (>60 ml/min/1.73 sqM) Est GFR (CKD-EPI)NonAf 14 (>60 ml/min/1.73 sqM) Glucose 163 H (74-99) mg/dL Calcium 9.3 (8.4-10.2) mg/dL Magnesium 1.4 L (1.6-2.3) mg/dL Total Bilirubin 0.4 (0.2-1.3) mg/dL AST 27 (14-36) U/L ALT 18 (4-34) U/L Alkaline Phosphatase 96 (38-126) U/L Total Protein 6.8 (6.3-8.2) g/dL Albumin 4.1 (3.5-5.0) g/dL - EKG Data -: EKG Interpreted by Me EKG shows normal: sinus rhythm (With multiple PVCs), axis (Normal), intervals (Normal), QRS complexes (Normal), ST-T waves (Normal) Rate: normal (Rate 75 bpm) Disposition Clinical Impression: Back muscle spasm, Hypomagnesemia Disposition: HOME SELF-CARE Condition: Good Instructions (If sedation given, give patient instructions): Hypomagnesemia (ED) Prescriptions: Magnesium Oxide [Mag-Ox] 400 mg PO DAILY #30 tablet Methocarbamol [Robaxin-750] 750 mg PO TID PRN #30 tablet PRN Reason: pain Is patient prescribed a controlled substance at d/c from ED?: No Referrals: Lacey Arevalo DO [Primary Care Provider] - 1-2 days
[2021-05-11 03:50] LABS: Basophils # (A) 0.1 k/uL (0-0.2); Basophils % (A) 1 %; Eosinophils # (A) 0.2 k/uL (0-0.7); Eosinophils % (A) 3 %; HCT 34.7 % (34.0-46.0); HGB 11.6 gm/dL (11.4-16.0); Lymphocytes # (A) 1.7 k/uL (1.0-4.8); Lymphocytes % (A) 22 %; MCH 30.7 pg (25.0-35.0); MCHC 33.5 g/dL (31.0-37.0); MCV 91.7 fL (80.0-100.0); Mean Platelet Volume 9.5; Monocytes # (A) 0.6 k/uL (0-1.0); Monocytes % (A) 8 %; Neutrophils # (A) 5.1 k/uL (1.3-7.7); Neutrophils % (A) 66 %; Platelet Count 185 k/uL (150-450); RBC 3.78 m/uL (3.80-5.40); RDW 14.6 % (11.5-15.5); WBC 7.6 k/uL (3.8-10.6)
[2021-05-11 03:59] LABS: Albumin 4.1 g/dL (3.5-5.0); Calcium 9.3 mg/dL (8.4-10.2); Magnesium 1.4 mg/dL (1.6-2.3); Potassium 3.9 mmol/L (3.5-5.1); Total Bilirubin 0.4 mg/dL (0.2-1.3); Total Protein 6.8 g/dL (6.3-8.2)
[2021-05-11 04:13] VITALS: RESP 16
--- NOTE | 2021-05-11 04:19 | XR ---
EXAM: XR Thoracic Spine, 3 Views CLINICAL HISTORY: ITS.REASON XR Reason: pain, about t10 TECHNIQUE: Frontal, lateral and swimmer's views of the thoracic spine. COMPARISON: No relevant prior studies available. FINDINGS: Vertebrae: Unremarkable. No acute fracture. Normal alignment. Multilevel anterior osteophytes of the mid lower thoracic spine Disc spaces: No acute findings. No significant narrowing. Soft tissues: Unremarkable. IMPRESSION: No acute fractures or spondylolisthesis of the thoracic spine.
[2021-05-11] MEDS ORDERED: MORPHINE SULFATE 4 MG/ML SYRINGE IV STA (04:56)
[2021-05-11] MEDS ORDERED: KETOROLAC 15 MG/ML 1 ML VIAL IVP STA (04:56)
[2021-05-11] MEDS ORDERED: MAGNESIUM OXIDE 400 MG TAB PO STA (05:03)
[2021-05-11 05:27] VITALS: BP 150/71; PULSE 70
== END 2021-05-11 05:10 | disposition home or self-care (01) ==
LOC: EC 02:54
DX: M62.830 Muscle spasm of back (principal); E83.42 Hypomagnesemia; I10 Essential (primary) hypertension; E78.5 Hyperlipidemia, unspecified; E11.9 Type 2 diabetes mellitus without complications; I25.10 Atherosclerotic heart disease of native coronary artery without angina pectoris; Z86.711 Personal history of pulmonary embolism; Z86.718 Personal history of other venous thrombosis and embolism; Z79.4 Long term (current) use of insulin; Z79.01 Long term (current) use of anticoagulants
CPT/HCPCS: 36415; 93005; 80053; 83735; 85025; 72072; 99284; 96374; J2360

== ENCOUNTER 2021-06-26 05:48 | Emergency (ER) | payer MEDICARE, BC ==
[2021-06-26 05:54] VITALS: TEMP 97.9
[2021-06-26] MEDS ORDERED: SODIUM CHLORIDE 0.9% 1,000 ML IV STA (06:12)
[2021-06-26] MEDS ORDERED: KETOROLAC 15 MG/ML 1 ML VIAL IVP STA (06:12)
[2021-06-26] MEDS ORDERED: SODIUM CHLORIDE 0.9% 500 ML 500 ML IV STA (06:14)
--- NOTE | 2021-06-26 06:15 | ED ---
General Adult HPI - General Chief complaint: Back Pain/Injury Stated complaint: Back Pain Time Seen by Provider: 06/26/21 06:03 Source: patient Mode of arrival: ambulatory Limitations: no limitations - History of Present Illness Initial comments: 66-year-old female with a past medical history of CAD, diabetes mellitus, DVT/PE, hyperlipidemia, hypertension presents to the emergency room for right sided and right low back pain. Patient reports that this happened back in April about a month ago. However last night the pain recurred. States that she feels it is muscle spasms but someone told her it could be a kidney stone. States she was tossing and turning all night because of this. States he feels better in certain positions. States it is tender to press on the area. She denies nausea or vomiting. She does not appear in distress at time of presentation.Patient has no other complaints at this time including shortness of breath, chest pain, nausea or vomiting, headache, or visual changes. - Related Data Home Medications Medication Instructions Recorded Confirmed Ergocalciferol (Vitamin D2) 50,000 unit PO SA 07/13/16 08/24/19 [Drisdol] Cyanocobalamin (Vitamin B-12) 500 mcg PO DAILY 11/16/18 08/24/19 [Vitamin B-12] allopurinoL [Zyloprim] 50 mg PO DAILY 11/16/18 08/24/19 Furosemide [Lasix] 40 mg PO DAILY 11/26/18 08/24/19 Magnesium Oxide 400 mg PO DAILY 01/17/19 08/24/19 Potassium Chloride ER [K-Dur 10] 10 meq PO DAILY 01/17/19 08/24/19 Warfarin Sodium 6 mg PO MOWEFRSA 01/17/19 08/24/19 Warfarin Sodium [Coumadin] 4 mg PO SUTUTH 01/17/19 08/24/19 Insulin Aspart (For Pump) [NovoLOG 0.01 unit SQ-PUMP CONTINUOUS 08/24/19 08/24/19 (For Pump)] Previous Rx's Medication Instructions Recorded Pravastatin Sodium [Pravachol] 40 mg PO HS tab 12/07/18 Magnesium Oxide [Mag-Ox] 400 mg PO DAILY #30 tablet 05/11/21 Methocarbamol [Robaxin-750] 750 mg PO TID PRN #30 tablet 05/11/21 Allergies Allergy/AdvReac Type Severity Reaction Status Date / Time azithromycin Allergy Unknown Rash/Hives Verified 06/26/21 05:54 amoxicillin Allergy Rash/Hives Verified 06/26/21 05:54 metronidazole [From Flagyl] Allergy Unknown Verified 06/26/21 05:54 Iodinated Contrast Media AdvReac KIDNEY Verified 06/26/21 05:54 [Iodinated Contrast- Oral and IV Dye] Review of Systems ROS Statement: Those systems with pertinent positive or pertinent negative responses have been documented in the HPI. ROS Other: All systems not noted in ROS Statement are negative. Past Medical History Past Medical History: Coronary Artery Disease (CAD), Diabetes Mellitus, Deep Vein Thrombosis (DVT), Hyperlipidemia, Hypertension, Pulmonary Embolus (PE), Renal Disease Additional Past Medical History / Comment(s): Vitamin D Deficency, pt has insulin pump, elevated liver enzymes History of Any Multi-Drug Resistant Organisms: None Reported Past Surgical History: Appendectomy, Cholecystectomy Additional Past Surgical History / Comment(s): Breast Biopsy, Carapal tunnel to right hand, Heart Catherization, colonoscopy 08/2014 Past Anesthesia/Blood Transfusion Reactions: No Reported Reaction Past Psychological History: No Psychological Hx Reported Smoking Status: Never smoker Past Alcohol Use History: Occasional Past Drug Use History: None Reported - Past Family History Mother Family Medical History: No Reported History Additional Family Medical History / Comment(s): heart disease Father Additional Family Medical History / Comment(s): heart disease General Exam Limitations: no limitations General appearance: alert, in no apparent distress Head exam: Present: atraumatic Eye exam: Present: normal appearance, PERRL, EOMI. Absent: scleral icterus, con junctival injection, periorbital swelling ENT exam: Present: normal exam, mucous membranes moist Neck exam: Present: normal inspection, full ROM. Absent: tenderness, meningismus, lymphadenopathy Respiratory exam: Present: normal lung sounds bilaterally. Absent: respiratory distress, wheezes, rales, rhonchi, stridor Cardiovascular Exam: Present: regular rate, normal rhythm, normal heart sounds. Absent: systolic murmur, diastolic murmur, rubs, gallop, clicks GI/Abdominal exam: Present: soft, normal bowel sounds. Absent: distended, tenderness, guarding, rebound, rigid Back exam: Present: CVA tenderness (R). Absent: CVA tenderness (L) Course Vital Signs 06/26/21 06/26/21 05:48 07:02 Temperature 97.9 F Pulse Rate 66 66 Respiratory 22 18 Rate Blood Pressure 157/76 147/57 O2 Sat by Pulse 97 99 Oximetry Medical Decision Making - Medical Decision Making 58-year-old female presents for reproducible right side pain. Worse with certain movements. Tender to palpation. No red flag symptoms such as bladder or bowel changes, saddle anesthesia, weakness of the legs, or fevers. Vitals are stable. CBC CMP unremarkable. Evidence of chronic kidney disease. Urinalysis is negative for acute infection. CT was obtained. There is a 5 mm left basilar pulmonary nodule that appears unchanged. Unable to exclude either a large left infrahilar nodule measuring 1.1 cm versus vascular confluence. Recommend nonemergent follow-up in 4-6 weeks to further and I did discuss this with patient and she will do so. No nephrolithiasis or hydronephrosis. There is also stable pneumobilia likely a product of a prior sphincterectomy status post cholecystectomy. Patient reevaluated, pain is improved. I did offer tramadol to patient however she does not want to take this. She prefers to take Tylenol at home. I suspect symptoms are related to muscular spasm. She'll return for any worsening symptoms. - Lab Data Result diagrams: 06/26/21 06:44 06/26/21 06:44 Lab Results 06/26/21 06/26/21 06/26/21 Range/Units 06:44 06:44 06:44 WBC 7.3 (3.8-10.6) k/uL RBC 3.70 L (3.80-5.40) m/uL Hgb 11.7 (11.4-16.0) gm/dL Hct 34.4 (34.0-46.0) % MCV 93.0 (80.0-100.0) fL MCH 31.6 (25.0-35.0) pg MCHC 34.0 (31.0-37.0) g/dL RDW 14.8 (11.5-15.5) % Plt Count 177 (150-450) k/uL MPV 9.5 Neutrophils % 69 % Lymphocytes % 19 % Monocytes % 8 % Eosinophils % 2 % Basophils % 0 % Neutrophils # 5.1 (1.3-7.7) k/uL Lymphocytes # 1.4 (1.0-4.8) k/uL Monocytes # 0.6 (0-1.0) k/uL Eosinophils # 0.1 (0-0.7) k/uL Basophils # 0.0 (0-0.2) k/uL Sodium 138 (137-145) mmol/L Potassium 3.8 (3.5-5.1) mmol/L Chloride 100 (98-107) mmol/L Carbon Dioxide 28 (22-30) mmol/L Anion Gap 10 mmol/L BUN 51 H (7-17) mg/dL Creatinine 2.98 H (0.52-1.04) mg/dL Est GFR (CKD-EPI)AfAm 18 (>60 ml/min/1.73 sqM) Est GFR (CKD-EPI)NonAf 16 (>60 ml/min/1.73 sqM) Glucose 177 H (74-99) mg/dL Calcium 9.9 (8.4-10.2) mg/dL Total Bilirubin 0.6 (0.2-1.3) mg/dL AST 21 (14-36) U/L ALT 12 (4-34) U/L Alkaline Phosphatase 104 (38-126) U/L Total Protein 6.4 (6.3-8.2) g/dL Albumin 4.0 (3.5-5.0) g/dL Amylase 51 (30-110) U/L Lipase 33 (23-300) U/L Urine Color Light Yellow Urine Appearance Cloudy H (Clear) Urine pH 5.5 (5.0-8.0) Ur Specific [place] 1.010 (1.001-1.035) Urine Protein Negative (Negative) Urine Glucose (UA) Negative (Negative) Urine Ketones Negative (Negative) Urine Blood Small H (Negative) Urine Nitrite Negative (Negative) Urine Bilirubin Negative (Negative) Urine Urobilinogen <2.0 (<2.0) mg/dL Ur Leukocyte Esterase Negative (Negative) Urine RBC 2 (0-5) /hpf Urine WBC 1 (0-5) /hpf Ur Squamous Epith Cells 5 H (0-4) /hpf Amorphous Sediment Occasional H (None) /hpf Urine Bacteria Rare H (None) /hpf Hyaline Casts 9 H (0-2) /lpf Urine Mucus Rare H (None) /hpf Disposition Clinical Impression: Mechanical back pain Disposition: HOME SELF-CARE Condition: Good Instructions (If sedation given, give patient instructions): Acute Low Back Pain (ED) Additional Instructions: Take Tylenol for pain. You can apply heating pad on and off. Follow-up with your doctor. Return to the emergency room for any worsening symptoms. Is patient prescribed a controlled substance at d/c from ED?: No Referrals: Lacey Arevalo DO [Primary Care Provider] - 1-2 days Time of Disposition: 07:47
[2021-06-26 07:10] VITALS: RESP 18
[2021-06-26 07:15] LABS: Amorphous Sediment,Urine Occasional /hpf; Appearance,Urine Cloudy (Clear); Bacteria,Urine Rare /hpf; Bilirubin,Urine Negative (Negative); Blood,Urine Small (Negative); Color,Urine Light Yellow; Glucose,Urine (UA) Negative (Negative); Hyaline Casts,Urine 9 /lpf (0-2); Ketones,Urine Negative (Negative); Leukocyte Esterase,Urine Negative (Negative); Mucus,Urine Rare /hpf; Nitrite,Urine Negative (Negative); PH, Urine 5.5 (5.0-8.0); Protein,Urine Negative (Negative); RBC,Urine 2 /hpf (0-5); Squamous Epithelial Cell,Urine 5 /hpf (0-4); Urobilinogen,Urine <2.0 mg/dL (<2.0); WBC,Urine 1 /hpf (0-5)
--- NOTE | 2021-06-26 07:22 | CT ---
EXAMINATION TYPE: CT abdomen pelvis wo con DATE OF EXAM: 06/26/2021 COMPARISON: 08/27/2020 HISTORY: 66-year-old female Right flank pain CT DLP: 1049.4 mGycm. Automated exposure control for dose reduction was used. TECHNIQUE: Contiguous axial scanning of the abdomen and pelvis without IV contrast. Coronal and sagit beatriz reconstructions performed. FINDINGS: Heart borderline to mildly enlarged. Some strandy atelectasis in the lower lungs. A 5 mm left basilar pulmonary nodule, axial image 8 appears unchanged. Unable to exclude a larger lef t infrahilar nodule measuring 1.1 cm versus vascular confluence, axial image 4. Tiny hiatal hernia. Redemonstrated pneumobilia. Gallbladder surgically absent. Diffuse atrophy of the pancreas. Pancreati c head calcifications. Findings probably related to fatty replacement and chronic pancreatitis. Adrenal glands and spleen within normal limits. Few scattered cortical hypodensities within the kidneys measuring up to 1.2 cm are unchanged suggesti ng small cortical cysts. A hyperdense cortical lesion anterior upper pole left kidney measures 1.3 cm and is also unchanged suggesting a hemorrhagic cyst. [id number] atherosclerotic calcifications infrarenal abdominal aorta and iliac arteries without aneurysm. No dilated small bowel, free fluid, free air. No mesenteric or retroperitoneal lymphadenopathy. Appendix not visualized. No secondary findings of acute appendicitis. Mild to moderate fatty stool bu rden may reflect some pancreatic insufficiency. No perisplenic inflammatory change. Bladder not distended. Uterus is anteverted. Both ovaries are visualized. No abnormal fluid collectio n in the pelvis. Overlying size 1.1 cm left external iliac chain lymph node remains unchanged, likely reactive/post inflammatory. Bones: Mild degenerative change of both hips. Osteitis pubis. Mild multilevel degenerative disc disea se. Facet arthropathy L5-S1 particularly on the right. IMPRESSION: 1. A 5 mm left basilar pulmonary nodule appears unchanged. However, unable to exclude either a large r left infrahilar nodule measuring 1.1 cm versus vascular confluence. Recommend nonemergent follow-up contrast enhanced CT chest in 4-6 weeks to further evaluate and also to survey the remainder of the lungs. 2. Tiny hiatal hernia. Stable pneumobilia likely a product of prior sphincterotomy. Status post chol ecystectomy. Stable small renal cysts. Redemonstrated fatty replacement of the pancreas and mild to m oderate fatty stool burden likely in part due to some degree of pancreatic insufficiency. 3. No nephrolithiasis or hydronephrosis.
[2021-06-26 07:30] LABS: Calcium 9.9 mg/dL (8.4-10.2); Potassium 3.8 mmol/L (3.5-5.1); Total Bilirubin 0.6 mg/dL (0.2-1.3); Total Protein 6.4 g/dL (6.3-8.2)
[2021-06-26 07:32] LABS: Basophils % (A) 0 %; Eosinophils # (A) 0.1 k/uL (0-0.7); Eosinophils % (A) 2 %; HCT 34.4 % (34.0-46.0); HGB 11.7 gm/dL (11.4-16.0); Lymphocytes # (A) 1.4 k/uL (1.0-4.8); Lymphocytes % (A) 19 %; MCH 31.6 pg (25.0-35.0); Mean Platelet Volume 9.5; Monocytes # (A) 0.6 k/uL (0-1.0); Monocytes % (A) 8 %; Neutrophils # (A) 5.1 k/uL (1.3-7.7); Neutrophils % (A) 69 %; Platelet Count 177 k/uL (150-450); RDW 14.8 % (11.5-15.5); WBC 7.3 k/uL (3.8-10.6)
[2021-06-26 08:06] VITALS: BP 144/60; PULSE 72
== END 2021-06-26 08:06 | disposition home or self-care (01) ==
LOC: EC 05:48
DX: M54.5 Low back pain (principal); E11.9 Type 2 diabetes mellitus without complications; I10 Essential (primary) hypertension; I25.10 Atherosclerotic heart disease of native coronary artery without angina pectoris; E78.5 Hyperlipidemia, unspecified; Z79.01 Long term (current) use of anticoagulants; Z79.4 Long term (current) use of insulin; Z79.899 Other long term (current) drug therapy; Z82.49 Family history of ischemic heart disease and other diseases of the circulatory system; Z86.711 Personal history of pulmonary embolism; Z86.718 Personal history of other venous thrombosis and embolism; Z88.1 Allergy status to other antibiotic agents; Z88.8 Allergy status to other drugs, medicaments and biological substances; Z90.49 Acquired absence of other specified parts of digestive tract
CPT/HCPCS: 36415; 80053; 82150; 83690; 85025; 81001; 74176; 96374; 96361; 99284; J1885

== ENCOUNTER 2021-07-05 22:26 | Emergency (ER) | payer MEDICARE, BC ==
[2021-07-05 22:31] VITALS: BP 191/85; PULSE 75; RESP 18; TEMP 97.8
--- NOTE | 2021-07-05 22:43 | ED ---
Back Pain HPI - General Chief Complaint: Back Pain/Injury Stated Complaint: back pain Time Seen by Provider: 07/05/21 22:37 Source: patient Limitations: no limitations - History of Present Illness Initial Comments: 66-year-old female patient presents to the emergency department today reporting right mid back muscle spasms. States his been going on intermittently over the last couple of weeks. Was in the emergency department did have full workup including labs and computed tomography scan. Patient states she did receive medication emergency department which should help her symptoms. Patient states that pain is back today though not as bad as previously. States she did want to get it to that level so she came in for evaluation. Denies any hematuria, dysuria, urinary frequency, urinary urgency. States pain does worsen with lying down. Denies any chest pain or shortness of breath. Denies fever or chills. Denies any radiating pain down her legs. Denies saddle anesthesia or loss of bowel or bladder control. - Related Data Home Medications Medication Instructions Recorded Confirmed Ergocalciferol (Vitamin D2) 50,000 unit PO SA 07/13/16 08/24/19 [Drisdol] Cyanocobalamin (Vitamin B-12) 500 mcg PO DAILY 11/16/18 08/24/19 [Vitamin B-12] allopurinoL [Zyloprim] 50 mg PO DAILY 11/16/18 08/24/19 Furosemide [Lasix] 40 mg PO DAILY 11/26/18 08/24/19 Magnesium Oxide 400 mg PO DAILY 01/17/19 08/24/19 Potassium Chloride ER [K-Dur 10] 10 meq PO DAILY 01/17/19 08/24/19 Warfarin Sodium 6 mg PO MOWEFRSA 01/17/19 08/24/19 Warfarin Sodium [Coumadin] 4 mg PO SUTUTH 01/17/19 08/24/19 Insulin Aspart (For Pump) [NovoLOG 0.01 unit SQ-PUMP CONTINUOUS 08/24/19 08/24/19 (For Pump)] Previous Rx's Medication Instructions Recorded Pravastatin Sodium [Pravachol] 40 mg PO HS tab 12/07/18 Magnesium Oxide [Mag-Ox] 400 mg PO DAILY #30 tablet 05/11/21 Methocarbamol [Robaxin-750] 750 mg PO TID PRN #30 tablet 05/11/21 Allergies Allergy/AdvReac Type Severity Reaction Status Date / Time azithromycin Allergy Unknown Rash/Hives Verified 07/05/21 22:31 amoxicillin Allergy Rash/Hives Verified 07/05/21 22:31 metronidazole [From Flagyl] Allergy Unknown Verified 07/05/21 22:31 Iodinated Contrast Media AdvReac KIDNEY Verified 07/05/21 22:31 [Iodinated Contrast- Oral and IV Dye] Review of Systems ROS Statement: Those systems with pertinent positive or pertinent negative responses have been documented in the HPI. ROS Other: All systems not noted in ROS Statement are negative. Past Medical History Past Medical History: Coronary Artery Disease (CAD), Diabetes Mellitus, Deep Vein Thrombosis (DVT), Hyperlipidemia, Hypertension, Pulmonary Embolus (PE), Renal Disease Additional Past Medical History / Comment(s): Vitamin D Deficency, pt has insulin pump, elevated liver enzymes History of Any Multi-Drug Resistant Organisms: None Reported Past Surgical History: Appendectomy, Cholecystectomy Additional Past Surgical History / Comment(s): Breast Biopsy, Carapal tunnel to right hand, Heart Catherization, colonoscopy 08/2014 Past Anesthesia/Blood Transfusion Reactions: No Reported Reaction Past Psychological History: No Psychological Hx Reported Smoking Status: Never smoker Past Alcohol Use History: Occasional Past Drug Use History: None Reported - Past Family History Mother Family Medical History: No Reported History Additional Family Medical History / Comment(s): heart disease Father Additional Family Medical History / Comment(s): heart disease General Exam Limitations: no limitations General appearance: alert, in no apparent distress, other (This is a well- developed, well-nourished adult female patient in no acute distress. Vital signs upon presentation are temperature 97.8F, pulse 75, respirations 18, blood pressure 191/85, pulse ox 98% on room air.) ENT exam: Present: normal exam, normal oropharynx, mucous membranes moist Respiratory exam: Present: normal lung sounds bilaterally. Absent: respiratory distress, wheezes, rales, rhonchi, stridor Cardiovascular Exam: Present: regular rate, normal rhythm, normal heart sounds. Absent: systolic murmur, diastolic murmur, rubs, gallop, clicks GI/Abdominal exam: Present: soft, normal bowel sounds. Absent: distended, tenderness, guarding, rebound, rigid Extremities exam: Present: normal inspection, full ROM, normal capillary refill, other (Skin to the legs is pink, warm, dry. Cap refill less than 3 seconds. Pedal and posttibial pulses are 2+.). Absent: tenderness, pedal edema, joint swelling, calf tenderness Back exam: Present: normal inspection, paraspinal tenderness (Right thoracic). Absent: CVA tenderness (R), CVA tenderness (L), vertebral tenderness Neurological exam: Present: alert, oriented X3, CN II-XII intact Psychiatric exam: Present: normal affect, normal mood Skin exam: Present: warm, dry, intact, normal color. Absent: rash Course Vital Signs 07/05/21 22:28 Temperature 97.8 F Pulse Rate 75 Respiratory 18 Rate Blood Pressure 191/85 O2 Sat by Pulse 98 Oximetry Medical Decision Making - Medical Decision Making 66-year-old female patient presents to the emergency department today for evaluation of right mid back muscle spasm. Physical examination did not reveal any bony tenderness. She had some right paraspinal thoracic tenderness. Pain worsens with movement. She has no concerning symptoms or cauda equina. She has been evaluated for this in the past has yet to follow-up with her primary care physician for this. She'll be given Lidoderm patch. Given starter packs for Tylenol codeine and Flexeril. She is instructed to follow-up with her primary care physician for recheck in 1-2 days. Return parameters were discussed in detail. She verbalizes understanding and agrees with this plan. My attending is Dr. Govea. Disposition Clinical Impression: Back spasm Disposition: HOME SELF-CARE Condition: Good Instructions (If sedation given, give patient instructions): Muscle Spasm (ED) Additional Instructions: Apply warm moist heat to the back. Take medication as directed. Follow-up with the primary care physician for recheck in 1-2 days. Return for any new, worsening, or concerning symptoms. Is patient prescribed a controlled substance at d/c from ED?: No Referrals: Lacey Arevalo DO [Primary Care Provider] - 1-2 days Time of Disposition: 22:43
[2021-07-05] MEDS: LIDOCAINE 5% PATCH TOPICAL STA (22:52)
[2021-07-05] MEDS: ACET/COD 300 MG/30 MG STARTER PACK 6 TAB BTL PO STA (22:54)
[2021-07-05] MEDS: CYCLOBENZAPRINE 10MG STARTER 3 TAB BTL PO STA (22:55)
== END 2021-07-05 22:56 | disposition home or self-care (01) ==
LOC: EC 22:26
DX: M62.830 Muscle spasm of back (principal); I10 Essential (primary) hypertension; E78.5 Hyperlipidemia, unspecified; E11.9 Type 2 diabetes mellitus without complications; I25.10 Atherosclerotic heart disease of native coronary artery without angina pectoris; Z86.711 Personal history of pulmonary embolism; Z86.718 Personal history of other venous thrombosis and embolism; Z79.4 Long term (current) use of insulin; Z79.01 Long term (current) use of anticoagulants
CPT/HCPCS: 99283

== ENCOUNTER → 2021-07-17 | Outpatient (CLI) | payer MEDICARE, BC ==
--- NOTE | 2021-07-17 08:45 | CT ---
EXAMINATION TYPE: CT chest wo con DATE OF EXAM: 07/17/2021 COMPARISON: High-resolution study of 10/14/1962 HISTORY: Pulmonary Nodule CT DLP: 505.[address] of the chest was performed with lung and mediastinal window settings submitted. The la ck of contrast limits evaluation of the vascular, mediastinal and parenchymal structures including th e upper abdomen. LUNGS: The lungs are clear and free of infiltrate. No atelectasis. 9 mm left infrahilar nodule measur es 9 mm image 38 stable from prior study. Left lower lobe pulmonary nodule measuring 5.7 mm. 9 mm lef t perihilar nodule image 28. 3 mm right perihilar pulmonary nodule image 28. No pleural effusion. No CT evidence of interstitial lung disease. MEDIASTINUM/REYNA: Thoracic aorta is of normal caliber with limited evaluation given lack of contrast . The heart is not enlarged. No evidence for mediastinal mass. No lymph nodes greater than 1cm. UPPER ABDOMEN: No significant abnormality is seen. OTHER: No significant other abnormality. IMPRESSION: 1. Nonspecific pulmonary nodularity. Follow-up study in 3-6 months is advised.
== END | disposition home or self-care (01) ==
LOC: RADCTMAIN 07:47
PROVIDERS: ATTEND Internal Medicine Critical Care Medicine
DX: R91.1 Solitary pulmonary nodule (principal)
CPT/HCPCS: 71250

== ENCOUNTER 2021-10-12 16:05 | Emergency (ER) | payer MEDICARE, BC ==
[2021-10-12 17:07] VITALS: BP 155/74; PULSE 70; RESP 16; TEMP 98.1
[2021-10-12 17:22] LABS: Glucose,Whole Blood 180 mg/dL (75-99)
[2021-10-12] MEDS ORDERED: SODIUM CHLORIDE 0.9% 1,000 ML IV STA (17:57)
--- NOTE | 2021-10-12 18:14 | ED ---
General Adult HPI - General Chief complaint: Recheck/Abnormal Lab/Rx Stated complaint: High Blood Sugar Time Seen by Provider: 10/12/21 17:56 Source: patient, RN notes reviewed Mode of arrival: ambulatory Limitations: no limitations - History of Present Illness Initial comments: 66-year-old female, alert and oriented 4, presents to the emergency room with complaints of her insulin meter not calibrating today. She states that earlier it was reading that her blood glucose level was 500. Patient says she has no complaints but is concerned that is not calibrating correctly. She denies any abdominal pain, nausea vomiting or diarrhea. She denies any fevers. No recent sick contacts. She was vaccinated against coronavirus. She states that she do es live alone and she was just concerned if her glucose level was really over 500. -: days(s) (1) Severity scale (1-10): 0 Associated Symptoms: denies other symptoms Treatments Prior to Arrival: none - Related Data Home Medications Medication Instructions Recorded Confirmed Ergocalciferol (Vitamin D2) 50,000 unit PO SA 07/13/16 08/24/19 [Drisdol] Cyanocobalamin (Vitamin B-12) 500 mcg PO DAILY 11/16/18 08/24/19 [Vitamin B-12] allopurinoL [Zyloprim] 50 mg PO DAILY 11/16/18 08/24/19 Furosemide [Lasix] 40 mg PO DAILY 11/26/18 08/24/19 Magnesium Oxide 400 mg PO DAILY 01/17/19 08/24/19 Potassium Chloride ER [K-Dur 10] 10 meq PO DAILY 01/17/19 08/24/19 Warfarin Sodium 6 mg PO MOWEFRSA 01/17/19 08/24/19 Warfarin Sodium [Coumadin] 4 mg PO SUTUTH 01/17/19 08/24/19 Insulin Aspart (For Pump) [NovoLOG 0.01 unit SQ-PUMP CONTINUOUS 08/24/19 (For Pump)] Previous Rx's Medication Instructions Recorded Pravastatin Sodium [Pravachol] 40 mg PO HS tab 12/07/18 Magnesium Oxide [Mag-Ox] 400 mg PO DAILY #30 tablet 05/11/21 Methocarbamol [Robaxin-750] 750 mg PO TID PRN #30 tablet 05/11/21 Allergies Allergy/AdvReac Type Severity Reaction Status Date / Time azithromycin Allergy Unknown Rash/Hives Verified 10/12/21 17:07 amoxicillin Allergy Rash/Hives Verified 10/12/21 17:07 metronidazole [From Flagyl] Allergy Unknown Verified 10/12/21 17:07 Iodinated Contrast Media AdvReac KIDNEY Verified 10/12/21 17:07 [Iodinated Contrast- Oral and IV Dye] Review of Systems ROS Statement: Those systems with pertinent positive or pertinent negative responses have been documented in the HPI. ROS Other: All systems not noted in ROS Statement are negative. Past Medical History Past Medical History: Coronary Artery Disease (CAD), Diabetes Mellitus, Deep Vein Thrombosis (DVT), Hyperlipidemia, Hypertension, Pulmonary Embolus (PE), Renal Disease Additional Past Medical History / Comment(s): Vitamin D Deficency, pt has insulin pump, elevated liver enzymes History of Any Multi-Drug Resistant Organisms: None Reported Past Surgical History: Appendectomy, Cholecystectomy Additional Past Surgical History / Comment(s): Breast Biopsy, Carapal tunnel to right hand, Heart Catherization, colonoscopy 08/2014 Past Anesthesia/Blood Transfusion Reactions: No Reported Reaction Past Psychological History: No Psychological Hx Reported Smoking Status: Never smoker Past Alcohol Use History: Occasional Past Drug Use History: None Reported - Past Family History Mother Family Medical History: No Reported History Additional Family Medical History / Comment(s): heart disease Father Additional Family Medical History / Comment(s): heart disease General Exam Limitations: no limitations General appearance: alert, in no apparent distress Head exam: Present: atraumatic, normocephalic, normal inspection Eye exam: Present: EOMI. Absent: normal appearance ENT exam: Present: normal exam, normal oropharynx, mucous membranes moist Neck exam: Present: normal inspection, full ROM. Absent: tenderness, meningismus, lymphadenopathy Respiratory exam: Present: normal lung sounds bilaterally. Absent: respiratory distress, wheezes, rales, rhonchi, stridor Cardiovascular Exam: Present: regular rate, normal rhythm, normal heart sounds. Absent: systolic murmur, diastolic murmur, rubs, gallop, clicks GI/Abdominal exam: Present: soft, normal bowel sounds. Absent: distended, tenderness, guarding, rebound, rigid Extremities exam: Present: normal capillary refill. Absent: pedal edema Back exam: Present: normal inspection, full ROM. Absent: tenderness, CVA tenderness (R), CVA tenderness (L), rash noted Neurological exam: Present: alert, oriented X3, normal gait Psychiatric exam: Present: normal affect, normal mood Skin exam: Present: warm, dry, intact, normal color. Absent: rash, cyanosis, diaphoretic, petechiae, pallor Course Vital Signs 10/12/21 17:04 Temperature 98.1 F Pulse Rate 70 Respiratory 16 Rate Blood Pressure 155/74 O2 Sat by Pulse 98 Oximetry Medical Decision Making - Medical Decision Making Patient presents to the emergency room with concerns about her blood glucose meter not calibrating correctly and reading 500 at home. In the emergency room here her meter is reading 120 and our meter is reading 129. She has no symptoms of hyperglycemia. She states that she feels well. Denies any nausea vomiting or diarrhea. She did get a coronavirus vaccine. She'll be discharged home to follow up with her primary care doctor return if any new or worsening symptoms or concerning symptoms. Discussed with Dr. Baptiste who also seen the patient prior to me, however patient requested to see a female provider. - Lab Data Lab Results 10/12/21 10/12/21 Range/Units 17:10 18:26 POC Glucose (mg/dL) 180 H 115 H (75-99) mg/dL POC Glu [employer] Developer Sofía Lugo Tammy Disposition Clinical Impression: Well adult exam Disposition: HOME SELF-CARE Condition: Good Additional Instructions: Return to the emergency room with any new or concerning symptoms. Contact your primary care doctor with any concerns about your insulin pump. Is patient prescribed a controlled substance at d/c from ED?: No Referrals: Lacey Arevalo DO [Primary Care Provider] - 1-2 days Time of Disposition: 18:40
[2021-10-12 18:31] LABS: Glucose,Whole Blood 115 mg/dL (75-99)
== END 2021-10-12 18:54 | disposition home or self-care (01) ==
LOC: EC 16:05
DX: Z00.01 Encounter for general adult medical examination with abnormal findings (principal); E11.65 Type 2 diabetes mellitus with hyperglycemia; I10 Essential (primary) hypertension; E78.5 Hyperlipidemia, unspecified; I25.10 Atherosclerotic heart disease of native coronary artery without angina pectoris; Z79.01 Long term (current) use of anticoagulants; Z79.4 Long term (current) use of insulin; Z88.1 Allergy status to other antibiotic agents; Z86.718 Personal history of other venous thrombosis and embolism; Z86.711 Personal history of pulmonary embolism; Z90.49 Acquired absence of other specified parts of digestive tract
CPT/HCPCS: 36415; 99284

== ENCOUNTER → 2022-01-06 | Outpatient (CLI) | payer MEDICARE, BC ==
--- NOTE | 2022-01-06 09:22 | CT ---
EXAMINATION TYPE: CT chest wo con DATE OF EXAM: 01/06/2022 COMPARISON: 07/17/2021 HISTORY: nodule CT DLP: 516.7 mGycm. Automated Exposure Control for Dose Reduction was Utilized. TECHNIQUE: CT scan of the thorax is performed without IV contrast. FINDINGS: LUNGS: The lungs are grossly clear, there is no focal pneumonia. There is no pleural effusion or pn eumothorax seen. The tracheobronchial tree is patent. Left infrahilar nodule previously measuring 9 mm now measures 11 mm Stable 2 mm nodule right middle lobe. 11 mm nodule left lower lobe previously measured 9 mm. 5 mm nodule left lower lobe stable. MEDIASTINUM: Lack of IV contrast is noted to limit evaluation for mediastinal and especially hilar ad enopathy. There are no definitive greater than 1 cm hilar or mediastinal lymph nodes. No cardiomega ly or pericardial effusion is seen. Heart is enlarged and there is atherosclerotic change of the jake nary arteries and aorta. Tiny pericardial effusion. OTHER: Small hiatal hernia hypertrophic and degenerative change of the spine. Postcholecystectomy salomon nges are seen with pneumobilia again noted.. IMPRESSION: 1. There is been interval incremental increase in size of the 2 largest nodules. Both now measure gre ater than 1 cm and PET scan is suggested to coronary artery atherosclerotic disease.
== END | disposition home or self-care (01) ==
LOC: RADCTMAIN 07:59
PROVIDERS: ATTEND Internal Medicine Critical Care Medicine
DX: R91.8 Other nonspecific abnormal finding of lung field (principal)
CPT/HCPCS: 71250

== ENCOUNTER 2022-01-08 23:02 | Emergency (ER) | payer MEDICARE, BC ==
[2022-01-09 00:17] VITALS: BP 126/69; PULSE 74; RESP 18; TEMP 97
[2022-01-09 00:50] LABS: Appearance,Urine Cloudy (Clear); Bacteria,Urine Occasional /hpf; Bilirubin,Urine Negative (Negative); Blood,Urine Large (Negative); Color,Urine Light Yellow; Glucose,Urine (UA) Negative (Negative); Ketones,Urine Negative (Negative); Leukocyte Esterase,Urine Small (Negative); Mucus,Urine Rare /hpf; Nitrite,Urine Negative (Negative); PH, Urine 5.5 (5.0-8.0); Protein,Urine Negative (Negative); RBC,Urine 3 /hpf (0-5); Specific Gravity,Urine 1.005 (1.001-1.035); Squamous Epithelial Cell,Urine 3 /hpf (0-4); Urobilinogen,Urine <2.0 mg/dL (<2.0); WBC,Urine 3 /hpf (0-5)
[2022-01-09] MEDS ORDERED: ACETAMINOPHEN TAB 325 MG TAB PO STA (01:29)
[2022-01-09] MEDS ORDERED: CYCLOBENZAPRINE 10MG STARTER 3 TAB BTL PO STA (01:30)
--- NOTE | 2022-01-09 01:31 | ED ---
Back Pain HPI - General Chief Complaint: Back Pain/Injury Stated Complaint: Lower back muscle spasms Source: patient - History of Present Illness Initial Comments: 66-year-old female patient presented to the emergency department today for evaluation of mid back spasms. Patient states she has had these in the past. Started just prior to going to bed this evening. Denies taking any medication for her symptoms are trying any nonpharmacologic pain relief measures. States pain does worsen with movement. States it'll spasm out of nowhere and then relax. She denies any abdominal pain, chest pain, shortness of breath. Denies any pain radiating down her arms. Denies cough or congestion. Denies any hematuria, dysuria, urinary frequency, urinary urgency. She denies any falls or injury. Denies fever or chills. Denies any radiating pain down her legs. Denies saddle anesthesia or loss of bowel or bladder control. - Related Data Home Medications Medication Instructions Recorded Confirmed Ergocalciferol (Vitamin D2) 50,000 unit PO SA 07/13/16 08/24/19 [Drisdol] Cyanocobalamin (Vitamin B-12) 500 mcg PO DAILY 11/16/18 08/24/19 [Vitamin B-12] allopurinoL [Zyloprim] 50 mg PO DAILY 11/16/18 08/24/19 Furosemide [Lasix] 40 mg PO DAILY 11/26/18 08/24/19 Magnesium Oxide 400 mg PO DAILY 01/17/19 08/24/19 Potassium Chloride ER [K-Dur 10] 10 meq PO DAILY 01/17/19 08/24/19 Warfarin Sodium 6 mg PO MOWEFRSA 01/17/19 08/24/19 Warfarin Sodium [Coumadin] 4 mg PO SUTUTH 01/17/19 08/24/19 Insulin Aspart (For Pump) [NovoLOG 0.01 unit SQ-PUMP CONTINUOUS 08/24/19 (For Pump)] Previous Rx's Medication Instructions Recorded Pravastatin Sodium [Pravachol] 40 mg PO HS tab 12/07/18 Magnesium Oxide [Mag-Ox] 400 mg PO DAILY #30 tablet 05/11/21 Methocarbamol [Robaxin-750] 750 mg PO TID PRN #30 tablet 05/11/21 Allergies Allergy/AdvReac Type Severity Reaction Status Date / Time azithromycin Allergy Unknown Rash/Hives Verified 01/09/22 00:17 amoxicillin Allergy Rash/Hives Verified 01/09/22 00:17 metronidazole [From Flagyl] Allergy Unknown Verified 01/09/22 00:17 Iodinated Contrast Media AdvReac KIDNEY Verified 01/09/22 00:17 [Iodinated Contrast- Oral and IV Dye] Review of Systems ROS Statement: Those systems with pertinent positive or pertinent negative responses have been documented in the HPI. ROS Other: All systems not noted in ROS Statement are negative. Past Medical History Past Medical History: Coronary Artery Disease (CAD), Diabetes Mellitus, Deep Vein Thrombosis (DVT), Hyperlipidemia, Hypertension, Pulmonary Embolus (PE), Renal Disease Additional Past Medical History / Comment(s): Vitamin D Deficency, pt has insulin pump, elevated liver enzymes History of Any Multi-Drug Resistant Organisms: None Reported Past Surgical History: Appendectomy, Cholecystectomy Additional Past Surgical History / Comment(s): Breast Biopsy, Carapal tunnel to right hand, Heart Catherization, colonoscopy 08/2014 Past Anesthesia/Blood Transfusion Reactions: No Reported Reaction Past Psychological History: No Psychological Hx Reported Smoking Status: Never smoker Past Alcohol Use History: Occasional Past Drug Use History: None Reported - Past Family History Mother Family Medical History: No Reported History Additional Family Medical History / Comment(s): heart disease Father Additional Family Medical History / Comment(s): heart disease General Exam General appearance: alert, in no apparent distress, other (This is a well- developed, well-nourished adult female in no acute distress.) ENT exam: Present: normal exam, normal oropharynx, mucous membranes moist Respiratory exam: Present: normal lung sounds bilaterally. Absent: respiratory distress, wheezes, rales, rhonchi, stridor Cardiovascular Exam: Present: regular rate, normal rhythm, normal heart sounds. Absent: systolic murmur, diastolic murmur, rubs, gallop, clicks GI/Abdominal exam: Present: soft, normal bowel sounds. Absent: distended, tenderness, guarding, rebound, rigid Extremities exam: Present: normal inspection, full ROM, normal capillary refill, other (Skin the legs and arms or pink and warm, dry. Cap refill less than 2 seconds. Radial pulses and pedal pulses 2+.). Absent: tenderness, pedal edema, joint swelling, calf tenderness Back exam: Present: paraspinal tenderness (Mid thoracic) Neurological exam: Present: alert, oriented X3, CN II-XII intact Psychiatric exam: Present: normal affect, normal mood Skin exam: Present: warm, dry, intact, normal color. Absent: rash Course Vital Signs 01/09/22 00:10 Temperature 97 F L Pulse Rate 74 Respiratory 18 Rate Blood Pressure 126/69 O2 Sat by Pulse 97 Oximetry Medical Decision Making - Medical Decision Making 58-year-old female patient presented to the emergency department today for evaluation of mid back spasms. Does have history of the same. Physical examination did reveal some midthoracic paraspinal tenderness. Abdomen is soft and nontender. Lungs are clear to auscultation with good air movement. Vital signs are within normal range. She is afebrile. She is given Tylenol and Flex eril. She will be discharged home to follow-up with her primary care physician for recheck in 1-2 days. Return parameters were discussed in detail. She verbalizes understanding and is agreeable to this plan. My attending is Dr. Mccracken. - Lab Data Lab Results 01/09/22 Range/Units 00:13 Urine Color Light Yellow Urine Appearance Cloudy H (Clear) Urine pH 5.5 (5.0-8.0) Ur Specific [place] 1.005 (1.001-1.035) Urine Protein Negative (Negative) Urine Glucose (UA) Negative (Negative) Urine Ketones Negative (Negative) Urine Blood Large H (Negative) Urine Nitrite Negative (Negative) Urine Bilirubin Negative (Negative) Urine Urobilinogen <2.0 (<2.0) mg/dL Ur Leukocyte Esterase Small H (Negative) Urine RBC 3 (0-5) /hpf Urine WBC 3 (0-5) /hpf Ur Squamous Epith Cells 3 (0-4) /hpf Urine Bacteria Occasional H (None) /hpf Urine Mucus Rare H (None) /hpf Disposition Clinical Impression: Back muscle spasm Disposition: HOME SELF-CARE Condition: Good Instructions (If sedation given, give patient instructions): Muscle Spasm (ED) Additional Instructions: Apply warm compresses to the area. Take Tylenol as needed. Use Flexeril sparingly as needed for severe pain. Follow-up with the primary care physician as soon as possible. Have imaging of your back if symptoms do not improve. Return to the emergency department for any new, worsening, or concerning symptoms Is patient prescribed a controlled substance at d/c from ED?: No Referrals: Lacey Arevalo DO [Primary Care Provider] - 1-2 days Time of Disposition: 01:31
== END 2022-01-09 01:44 | disposition home or self-care (01) ==
LOC: EC 23:02
DX: M62.830 Muscle spasm of back (principal); I25.10 Atherosclerotic heart disease of native coronary artery without angina pectoris; E11.9 Type 2 diabetes mellitus without complications; E78.5 Hyperlipidemia, unspecified; I10 Essential (primary) hypertension; Z79.01 Long term (current) use of anticoagulants; Z79.4 Long term (current) use of insulin; Z88.1 Allergy status to other antibiotic agents; Z86.718 Personal history of other venous thrombosis and embolism; Z86.711 Personal history of pulmonary embolism; Z90.49 Acquired absence of other specified parts of digestive tract
CPT/HCPCS: 81001; 99283

== ENCOUNTER 2022-02-14 17:37 | Emergency (ER) | payer MEDICARE, BC ==
[2022-02-14 18:11] VITALS: BP 137/74; PULSE 75; RESP 16; TEMP 98
--- NOTE | 2022-02-14 18:56 | XR ---
EXAMINATION TYPE: XR hand complete RT, XR wrist complete RT DATE OF EXAM: 02/14/2022 6:23 PM INDICATION: Patient age:Female; 66 years old; Reason for study: pain; COMPARISON: None TECHNIQUE: 3 views of the right hand were obtained. 3 views of the right wrist were taken. FINDINGS: Acute fracture through the proximal body/base of the fourth metacarpal. Approximately 1 to 2 mm displacement. There is soft tissue swelling. Atherosclerosis of the arterial vasculature. IMPRESSION: Acute fracture through the body/base of the fourth metacarpal best appreciated on one view.
--- NOTE | 2022-02-14 21:02 | ED ---
Upper Extremity HPI - General Chief Complaint: Extremity Injury, Upper Stated Complaint: Fall-R wrist injury Time Seen by Provider: 02/14/22 20:22 Source: patient, RN notes reviewed Mode of arrival: ambulatory Limitations: no limitations - History of Present Illness Initial Comments: This is a 66-year-old female who presents to the emergency department with right wrist pain and swelling after a fall earlier today. She was initially seen at [facility] at which time no fractures were identified on x-ray. She was given a velcro wrist brace, similar to what can be purchased OTC, and this was wrapped with an Elroy wrap overtop. Patient states that approximately 30 minutes after application, she began to experience swelling and increased pain in the wrist. States that she is concerned because she is on Coumadin, and she came to the emergency department for further evaluation. She also notes that a fracture was not identified by [facility]. The fall took place at [facility], patient states that she tripped over something on the floor. Denies hitting her head, LOC, or experiencing any symptoms such as dizziness prior to the event. MD Complaint: Injury to:: right, wrist Other Extremity Injury: Wrist: Left, Right Handedness: right - Related Data Home Medications Medication Instructions Recorded Confirmed Ergocalciferol (Vitamin D2) 50,000 unit PO SA 07/13/16 08/24/19 [Drisdol] Cyanocobalamin (Vitamin B-12) 500 mcg PO DAILY 11/16/18 08/24/19 [Vitamin B-12] allopurinoL [Zyloprim] 50 mg PO DAILY 11/16/18 08/24/19 Furosemide [Lasix] 40 mg PO DAILY 11/26/18 08/24/19 Magnesium Oxide 400 mg PO DAILY 01/17/19 08/24/19 Potassium Chloride ER [K-Dur 10] 10 meq PO DAILY 01/17/19 08/24/19 Warfarin Sodium 6 mg PO MOWEFRSA 01/17/19 08/24/19 Warfarin Sodium [Coumadin] 4 mg PO SUTUTH 01/17/19 08/24/19 Insulin Aspart (For Pump) [NovoLOG 0.01 unit SQ-PUMP CONTINUOUS 08/24/19 08/24/19 (For Pump)] Previous Rx's Medication Instructions Recorded Pravastatin Sodium [Pravachol] 40 mg PO HS tab 12/07/18 Magnesium Oxide [Mag-Ox] 400 mg PO DAILY #30 tablet 05/11/21 Methocarbamol [Robaxin-750] 750 mg PO TID PRN #30 tablet 05/11/21 Allergies Allergy/AdvReac Type Severity Reaction Status Date / Time azithromycin Allergy Unknown Rash/Hives Verified 02/14/22 18:11 amoxicillin Allergy Rash/Hives Verified 02/14/22 18:11 metronidazole [From Flagyl] Allergy Unknown Verified 02/14/22 18:11 Iodinated Contrast Media AdvReac KIDNEY Verified 02/14/22 18:11 [Iodinated Contrast- Oral and IV Dye] Review of Systems ROS Statement: Those systems with pertinent positive or pertinent negative responses have been documented in the HPI. ROS Other: All systems not noted in ROS Statement are negative. Constitutional: Denies: fever, chills ENT: Denies: ear pain, throat pain Respiratory: Denies: cough, dyspnea Cardiovascular: Denies: chest pain, palpitations Gastrointestinal: Denies: abdominal pain, nausea, vomiting, diarrhea Genitourinary: Denies: urgency, dysuria Musculoskeletal: Reports: other (Right wrist pain and swelling) Skin: Denies: rash Past Medical History Past Medical History: Coronary Artery Disease (CAD), Diabetes Mellitus, Deep Vein Thrombosis (DVT), Hyperlipidemia, Hypertension, Pulmonary Embolus (PE), Renal Disease Additional Past Medical History / Comment(s): Vitamin D Deficency, pt has insulin pump, elevated liver enzymes History of Any Multi-Drug Resistant Organisms: None Reported Past Surgical History: Appendectomy, Cholecystectomy Additional Past Surgical History / Comment(s): Breast Biopsy, Carapal tunnel to right hand, Heart Catherization, colonoscopy 08/2014 Past Anesthesia/Blood Transfusion Reactions: No Reported Reaction Past Psychological History: No Psychological Hx Reported Smoking Status: Never smoker Past Alcohol Use History: Occasional Past Drug Use History: None Reported - Past Family History Mother Family Medical History: No Reported History Additional Family Medical History / Comment(s): heart disease Father Additional Family Medical History / Comment(s): heart disease General Exam Limitations: no limitations General appearance: alert, in no apparent distress Head exam: Present: atraumatic, normocephalic, normal inspection Respiratory exam: Present: normal lung sounds bilaterally. Absent: respiratory distress, wheezes, rales, rhonchi, stridor Cardiovascular Exam: Present: regular rate, normal rhythm, normal heart sounds. Absent: systolic murmur, diastolic murmur, rubs, gallop, clicks Right Hand Wrist exam: Present: tenderness, swelling, ecchymosis, erythema, other (Swelling and ecchymosis of the dorsal and ventral aspect of the right hand.). Absent: full ROM (limited by pain) Vascular: Present: normal capillary refill. Absent: vascular compromise, Pallo, pulse deficit radial art, pulse deficit ulnar art Neurological exam: Present: alert, oriented X3, CN II-XII intact Psychiatric exam: Present: normal affect, normal mood Skin exam: Present: warm, dry, intact. Absent: rash Course Vital Signs 02/14/22 18:09 Temperature 98 F Pulse Rate 75 Respiratory 16 Rate Blood Pressure 137/74 O2 Sat by Pulse 97 Oximetry Medical Decision Making - Medical Decision Making This is a 66-year-old female who presents the emergency department for right wrist pain and swelling. I suspect that the brace she was given was too tight and restrictive, causing the swelling. Discussed with the patient options including trying the brace without an Leroy bandage and applying it looser. She also has the option of trying a different splint here that would be a less restrictive, but also offer less flexibility in terms of being able to remove it. Patient states that she would like to try a different splint at our facility. Ulnar gutter splint placed. Patient waited here for approximately 30-45 minutes after application to ensure she experienced no swelling as she did from the prior splint. She did not have any swelling and was tolerating the splint well. Patient denies the need for pain management at this time. Because the patient prefers to see female providers, I have listed two female orthopedic providers on her discharge form. Instructed her to call them on Wednesday or Wednesday for an appointment. Return precautions reviewed in depth, the patient is instructed to return to the emergency department if symptoms worsen, including but not limited to, increased pain, swelling, fevers/chills, inability to move the extremity, or loss of sensation to the extremity. Patient verbalized understanding. This case was discussed in detail with the attending ED physician. Presentation, findings, and treatment plan discussed in detail as well. - Radiology Data Radiology results: report reviewed, image reviewed Disposition Clinical Impression: Fracture of fourth metacarpal bone of right hand Disposition: HOME SELF-CARE Instructions (If sedation given, give patient instructions): Hand Fracture (ED) Additional Instructions: Return to the emergency department if you develop increased swelling, increased pain, redness, loss of sensation in the hand/wrist, or numbness and tingling. Contact orthopedics on Wednesday or Wednesday for an appointment. Is patient prescribed a controlled substance at d/c from ED?: No Referrals: Lacey Arevalo DO [Primary Care Provider] - 1-2 days Lisa Garsia NPC [Nurse Practitioner] - 1-2 days Raeann Negro DO [Doctor of Osteopathic Medicine] - 1-2 days
== END 2022-02-14 22:58 | disposition home or self-care (01) ==
LOC: EC 17:37
DX: S62.304A Unspecified fracture of fourth metacarpal bone, right hand, initial encounter for closed fracture (principal); I25.10 Atherosclerotic heart disease of native coronary artery without angina pectoris; E11.9 Type 2 diabetes mellitus without complications; E78.5 Hyperlipidemia, unspecified; I10 Essential (primary) hypertension; Z79.01 Long term (current) use of anticoagulants; Z79.4 Long term (current) use of insulin; Z88.1 Allergy status to other antibiotic agents; Z86.718 Personal history of other venous thrombosis and embolism; Z86.711 Personal history of pulmonary embolism; Z90.49 Acquired absence of other specified parts of digestive tract; W01.0XXA Fall on same level from slipping, tripping and stumbling without subsequent striking against object, initial encounter
CPT/HCPCS: 29125; 99283

== ENCOUNTER 2022-02-15 02:52 | Emergency (ER) | payer MEDICARE, BC ==
[2022-02-15 03:58] VITALS: BP 132/76; PULSE 69; RESP 19; TEMP 98
--- NOTE | 2022-02-15 06:31 | ED ---
Recheck HPI - General Chief Complaint: Recheck/Abnormal Lab/Rx Stated Complaint: recheck, hand pain Time Seen by Provider: 02/15/22 04:36 Source: patient, RN notes reviewed, old records reviewed Mode of arrival: ambulatory Limitations: no limitations - History of Present Illness Initial Comments: This is a 58-year-old female DF for evaluation. Patient was seen for evaluation yesterday of hand pain told that she has fracture of her fourth finger. Patient presents today for evaluation of splinted she feels her some redness around her thumb currently. Patient has no new traumas no other complaints. No redness or swelling up the arm. Just some increased pain in the hand. MD Complaint: wound re-check (Fracture recheck) -: hour(s) Returns Today for: persistent/worsening pain related to initial visit Symptoms Since Prior Visit: worsening pain Associated Symptoms: none Treatments Prior to Arrival: splint(s) - Related Data Home Medications Medication Instructions Recorded Confirmed Ergocalciferol (Vitamin D2) 50,000 unit PO SA 07/13/16 08/24/19 [Drisdol] Cyanocobalamin (Vitamin B-12) 500 mcg PO DAILY 11/16/18 08/24/19 [Vitamin B-12] allopurinoL [Zyloprim] 50 mg PO DAILY 11/16/18 08/24/19 Furosemide [Lasix] 40 mg PO DAILY 11/26/18 08/24/19 Magnesium Oxide 400 mg PO DAILY 01/17/19 08/24/19 Potassium Chloride ER [K-Dur 10] 10 meq PO DAILY 01/17/19 08/24/19 Warfarin Sodium 6 mg PO MOWEFRSA 01/17/19 08/24/19 Warfarin Sodium [Coumadin] 4 mg PO SUTUTH 01/17/19 08/24/19 Insulin Aspart (For Pump) [NovoLOG 0.01 unit SQ-PUMP CONTINUOUS 08/24/19 08/24/19 (For Pump)] Previous Rx's Medication Instructions Recorded Pravastatin Sodium [Pravachol] 40 mg PO HS tab 12/07/18 Magnesium Oxide [Mag-Ox] 400 mg PO DAILY #30 tablet 05/11/21 Methocarbamol [Robaxin-750] 750 mg PO TID PRN #30 tablet 05/11/21 Allergies Allergy/AdvReac Type Severity Reaction Status Date / Time azithromycin Allergy Unknown Rash/Hives Verified 02/15/22 03:58 amoxicillin Allergy Rash/Hives Verified 02/15/22 03:58 metronidazole [From Flagyl] Allergy Unknown Verified 02/15/22 03:58 Iodinated Contrast Media AdvReac KIDNEY Verified 02/15/22 03:58 [Iodinated Contrast- Oral and IV Dye] Review of Systems ROS Statement: Those systems with pertinent positive or pertinent negative responses have been documented in the HPI. ROS Other: All systems not noted in ROS Statement are negative. Past Medical History Past Medical History: Coronary Artery Disease (CAD), Diabetes Mellitus, Deep Vein Thrombosis (DVT), Hyperlipidemia, Hypertension, Pulmonary Embolus (PE), Renal Disease Additional Past Medical History / Comment(s): Vitamin D Deficency, pt has insulin pump, elevated liver enzymes History of Any Multi-Drug Resistant Organisms: None Reported Past Surgical History: Appendectomy, Cholecystectomy Additional Past Surgical History / Comment(s): Breast Biopsy, Carapal tunnel to right hand, Heart Catherization, colonoscopy 08/2014 Past Anesthesia/Blood Transfusion Reactions: No Reported Reaction Past Psychological History: No Psychological Hx Reported Smoking Status: Never smoker Past Alcohol Use History: Occasional Past Drug Use History: None Reported - Past Family History Mother Family Medical History: No Reported History Additional Family Medical History / Comment(s): heart disease Father Additional Family Medical History / Comment(s): heart disease General Exam - General Exam Comments Initial Comments: Patient does have swelling of right hand General appearance: alert, in no apparent distress Head exam: Present: atraumatic, normocephalic, normal inspection Eye exam: Present: normal appearance, PERRL, EOMI. Absent: scleral icterus, conjunctival injection, periorbital swelling ENT exam: Present: normal exam, mucous membranes moist Neck exam: Present: normal inspection. Absent: tenderness, meningismus, ly mphadenopathy Respiratory exam: Present: normal lung sounds bilaterally. Absent: respiratory distress, wheezes, rales, rhonchi, stridor Cardiovascular Exam: Present: regular rate, normal rhythm, normal heart sounds. Absent: systolic murmur, diastolic murmur, rubs, gallop, clicks GI/Abdominal exam: Present: soft, normal bowel sounds. Absent: distended, tenderness, guarding, rebound, rigid Extremities exam: Present: normal inspection, full ROM, normal capillary refill. Absent: tenderness, pedal edema, joint swelling, calf tenderness Back exam: Present: normal inspection Neurological exam: Present: alert, oriented X3, CN II-XII intact Psychiatric exam: Present: normal affect, normal mood Skin exam: Present: warm, dry, intact, normal color. Absent: rash Course Vital Signs 02/15/22 03:54 Temperature 98 F Pulse Rate 69 Respiratory 19 Rate Blood Pressure 132/76 O2 Sat by Pulse 96 Oximetry - Reevaluation(s) Reevaluation #1: 02/15/22 06:30 Medical records reviewed Reevaluation #2: 02/15/22 06:30 ER visit from yesterday is also been reviewed Reevaluation #3: 02/15/22 06:30 Splint is removed and replaced Procedures - Orthopedic Splinting/Casting Injury #1 Side: right Upper Extremity Immobilizer: ulnar gutter Medical Decision Making - Medical Decision Making 66 female to the emergency department for evaluation of recheck of splint. Splint care. Patient given instructions here in the ER and can be discharged home Disposition Clinical Impression: Fracture of fourth metacarpal bone of right hand, Aftercare for cast or splint check or change Disposition: HOME SELF-CARE Condition: Good Instructions (If sedation given, give patient instructions): Splint Care (ED) Is patient prescribed a controlled substance at d/c from ED?: No Referrals: Lacey Arevalo DO [Primary Care Provider] - 1-2 days
== END 2022-02-15 06:49 | disposition home or self-care (01) ==
LOC: EC 02:52
DX: S62.394D Other fracture of fourth metacarpal bone, right hand, subsequent encounter for fracture with routine healing (principal); E11.9 Type 2 diabetes mellitus without complications; I10 Essential (primary) hypertension; Z88.1 Allergy status to other antibiotic agents; Z88.0 Allergy status to penicillin; Z91.041 Radiographic dye allergy status; X58.XXXA Exposure to other specified factors, initial encounter
CPT/HCPCS: 29125; 99283

== ENCOUNTER 2022-03-04 20:53 | Emergency (ER) | payer MEDICARE, BC ==
[2022-03-05] MEDS ORDERED: SODIUM CHLORIDE 0.9% 1,000 ML IV STA (01:58)
[2022-03-05] MEDS ORDERED: ONDANSETRON 4 MG/2 ML VIAL IVP STA (01:58)
[2022-03-05] MEDS ORDERED: FAMOTIDINE 20 MG/2 ML VIAL IV STA (01:59)
[2022-03-05] MEDS ORDERED: methylPREDNISolone SOD SUCCI 125 MG/2 ML VIAL IV STA (01:59)
[2022-03-05] MEDS ORDERED: diphenhydrAMINE 50 MG/ML 1 ML VIAL IVP STA (01:59)
--- NOTE | 2022-03-05 02:00 | ED ---
Abdominal Pain HPI - General Chief Complaint: Abdominal Pain Stated Complaint: Abdominal Pain Time Seen by Provider: 03/05/22 01:45 Source: patient, family, RN notes reviewed, old records reviewed Mode of arrival: ambulatory Limitations: no limitations - History of Present Illness Initial Comments: This is a 4-year-old female to the emergency department for evaluation abdominal pain. Patient has history of back otitis chronic pancreatitis. Patient has mild nausea no acute active vomiting no diarrhea no fevers. She has history of appendectomy and cholecystectomy. Pain is currently right-sided worse than normal. But again no fevers. Patient is having bowel movements MD Complaint: abdominal pain -: hour(s) Location: diffuse, RUQ, RLQ Radiation: RUQ, RLQ Severity: moderate Severity scale (1-10): 6 Quality: sharp Consistency: intermittent Improves With: nothing Worsens With: nothing Context: recent surgery/procedure (She has have prior history of abdominal surgeries) Associated Symptoms: nausea, vomiting Treatments Prior to Arrival: other (none) - Related Data Home Medications Medication Instructions Recorded Confirmed Ergocalciferol (Vitamin D2) 50,000 unit PO SA 07/13/16 08/24/19 [Drisdol] Cyanocobalamin (Vitamin B-12) 500 mcg PO DAILY 11/16/18 08/24/19 [Vitamin B-12] allopurinoL [Zyloprim] 50 mg PO DAILY 11/16/18 08/24/19 Furosemide [Lasix] 40 mg PO DAILY 11/26/18 08/24/19 Magnesium Oxide 400 mg PO DAILY 01/17/19 08/24/19 Potassium Chloride ER [K-Dur 10] 10 meq PO DAILY 01/17/19 08/24/19 Warfarin Sodium 6 mg PO MOWEFRSA 01/17/19 08/24/19 Warfarin Sodium [Coumadin] 4 mg PO SUTUTH 01/17/19 08/24/19 Insulin Aspart (For Pump) [NovoLOG 0.01 unit SQ-PUMP CONTINUOUS 08/24/19 08/24/19 (For Pump)] Previous Rx's Medication Instructions Recorded Pravastatin Sodium [Pravachol] 40 mg PO HS tab 12/07/18 Magnesium Oxide [Mag-Ox] 400 mg PO DAILY #30 tablet 05/11/21 Methocarbamol [Robaxin-750] 750 mg PO TID PRN #30 tablet 05/11/21 Allergies Allergy/AdvReac Type Severity Reaction Status Date / Time azithromycin Allergy Unknown Rash/Hives Verified 03/04/22 21:56 amoxicillin Allergy Rash/Hives Verified 03/04/22 21:56 metronidazole [From Flagyl] Allergy Unknown Verified 03/04/22 21:56 Iodinated Contrast Media AdvReac KIDNEY Verified 03/04/22 21:56 [Iodinated Contrast- Oral and IV Dye] Review of Systems ROS Statement: Those systems with pertinent positive or pertinent negative responses have been documented in the HPI. ROS Other: All systems not noted in ROS Statement are negative. Past Medical History Past Medical History: Coronary Artery Disease (CAD), Diabetes Mellitus, Deep Vein Thrombosis (DVT), Hyperlipidemia, Hypertension, Pulmonary Embolus (PE), Renal Disease Additional Past Medical History / Comment(s): Vitamin D Deficency, pt has insulin pump, elevated liver enzymes History of Any Multi-Drug Resistant Organisms: None Reported Past Surgical History: Appendectomy, Cholecystectomy Additional Past Surgical History / Comment(s): Breast Biopsy, Carapal tunnel to right hand, Heart Catherization, colonoscopy 08/2014 Past Anesthesia/Blood Transfusion Reactions: No Reported Reaction Past Psychological History: No Psychological Hx Reported Smoking Status: Never smoker Past Alcohol Use History: Occasional Past Drug Use History: None Reported - Past Family History Mother Family Medical History: No Reported History Additional Family Medical History / Comment(s): heart disease Father Additional Family Medical History / Comment(s): heart disease General Exam Limitations: no limitations General appearance: alert, in no apparent distress Head exam: Present: atraumatic, normocephalic, normal inspection Eye exam: Present: normal appearance, PERRL, EOMI. Absent: scleral icterus, conjunctival injection, periorbital swelling ENT exam: Present: normal exam, mucous membranes moist Neck exam: Present: normal inspection. Absent: tenderness, meningismus, lymphadenopathy Respiratory exam: Present: normal lung sounds bilaterally. Absent: respiratory distress, wheezes, rales, rhonchi, stridor Cardiovascular Exam: Present: regular rate, normal rhythm, normal heart sounds. Absent: systolic murmur, diastolic murmur, rubs, gallop, clicks GI/Abdominal exam: Present: soft, tenderness (Epigastric), guarding, normal bowel sounds. Absent: distended, rebound, rigid Extremities exam: Present: normal inspection, full ROM, normal capillary refill. Absent: tenderness, pedal edema, joint swelling, calf tenderness Back exam: Present: normal inspection Neurological exam: Present: alert, oriented X3, CN II-XII intact Psychiatric exam: Present: normal affect, normal mood Skin exam: Present: warm, dry, intact, normal color. Absent: rash Course Vital Signs 03/04/22 03/05/22 03/05/22 21:51 03:41 05:17 Temperature 97.6 F 98.1 F Pulse Rate 70 95 Respiratory 22 18 Rate Blood Pressure 162/76 162/75 O2 Sat by Pulse 97 Oximetry - Reevaluation(s) Reevaluation #1: 03/05/22 Medical record is reviewed Patient symptoms are improving here in the emergency department Patient is informed of results and questions have been answered Medical Decision Making - Medical Decision Making 66 female known to our emergency department today. Patient comes in for ab dominal pain history of chronic pancreatitis, symptoms are well improved. Patient's able tolerate oral intake and can be discharged home - Lab Data Result diagrams: 03/05/22 02:26 03/05/22 02:26 Lab Results 03/05/22 03/05/22 03/05/22 Range/Units 02:26 02:26 02:26 WBC 8.0 (3.8-10.6) k/uL RBC 3.82 (3.80-5.40) m/uL Hgb 12.1 (11.4-16.0) gm/dL Hct 35.9 (34.0-46.0) % MCV 93.9 (80.0-100.0) fL MCH 31.7 (25.0-35.0) pg MCHC 33.8 (31.0-37.0) g/dL RDW 15.3 (11.5-15.5) % Plt Count 203 (150-450) k/uL MPV 8.9 Neutrophils % 62 % Lymphocytes % 26 % Monocytes % 8 % Eosinophils % 2 % Basophils % 1 % Neutrophils # 5.0 (1.3-7.7) k/uL Lymphocytes # 2.1 (1.0-4.8) k/uL Monocytes # 0.7 (0-1.0) k/uL Eosinophils # 0.1 (0-0.7) k/uL Basophils # 0.0 (0-0.2) k/uL Sodium 139 (137-145) mmol/L Potassium 4.4 (3.5-5.1) mmol/L Chloride 99 (98-107) mmol/L Carbon Dioxide 31 H (22-30) mmol/L Anion Gap 9 mmol/L BUN 46 H (7-17) mg/dL Creatinine 3.66 H (0.52-1.04) mg/dL Est GFR (CKD-EPI)AfAm 14 (>60 ml/min/1.73 sqM) Est GFR (CKD-EPI)NonAf 12 (>60 ml/min/1.73 sqM) Glucose 163 H (74-99) mg/dL Plasma Lactic Acid Jean Claude 1.4 (0.7-2.0) mmol/L Calcium 9.3 (8.4-10.2) mg/dL Total Bilirubin 0.7 (0.2-1.3) mg/dL AST 23 (14-36) U/L ALT 14 (4-34) U/L Alkaline Phosphatase 131 H (38-126) U/L Total Protein 6.9 (6.3-8.2) g/dL Albumin 4.1 (3.5-5.0) g/dL Amylase 66 (30-110) U/L Lipase 46 (23-300) U/L Urine Color Urine Appearance (Clear) Urine pH (5.0-8.0) Ur Specific [place] (1.001-1.035) Urine Protein (Negative) Urine Glucose (UA) (Negative) Urine Ketones (Negative) Urine Blood (Negative) Urine Nitrite (Negative) Urine Bilirubin (Negative) Urine Urobilinogen (<2.0) mg/dL Ur Leukocyte Esterase (Negative) Urine RBC (0-5) /hpf Urine WBC (0-5) /hpf Ur Squamous Epith Cells (0-4) /hpf Urine Bacteria (None) /hpf Hyaline Casts (0-2) /lpf Urine Mucus (None) /hpf 03/05/22 Range/Units 02:29 WBC (3.8-10.6) k/uL RBC (3.80-5.40) m/uL Hgb (11.4-16.0) gm/dL Hct (34.0-46.0) % MCV (80.0-100.0) fL MCH (25.0-35.0) pg MCHC (31.0-37.0) g/dL RDW (11.5-15.5) % Plt Count (150-450) k/uL MPV Neutrophils % % Lymphocytes % % Monocytes % % Eosinophils % % Basophils % % Neutrophils # (1.3-7.7) k/uL Lymphocytes # (1.0-4.8) k/uL Monocytes # (0-1.0) k/uL Eosinophils # (0-0.7) k/uL Basophils # (0-0.2) k/uL Sodium (137-145) mmol/L Potassium (3.5-5.1) mmol/L Chloride (98-107) mmol/L Carbon Dioxide (22-30) mmol/L Anion Gap mmol/L BUN (7-17) mg/dL Creatinine (0.52-1.04) mg/dL Est GFR (CKD-EPI)AfAm (>60 ml/min/1.73 sqM) Est GFR (CKD-EPI)NonAf (>60 ml/min/1.73 sqM) Glucose (74-99) mg/dL Plasma Lactic Acid [place] (0.7-2.0) mmol/L Calcium (8.4-10.2) mg/dL Total Bilirubin (0.2-1.3) mg/dL AST (14-36) U/L ALT (4-34) U/L Alkaline Phosphatase (38-126) U/L Total Protein (6.3-8.2) g/dL Albumin (3.5-5.0) g/dL Amylase (30-110) U/L Lipase (23-300) U/L Urine Color Yellow Urine Appearance Clear (Clear) Urine pH 6.5 (5.0-8.0) Ur Specific [place] 1.014 (1.001-1.035) Urine Protein Trace H (Negative) Urine Glucose (UA) Negative (Negative) Urine Ketones Negative (Negative) Urine Blood Trace H (Negative) Urine Nitrite Negative (Negative) Urine Bilirubin Negative (Negative) Urine Urobilinogen <2.0 (<2.0) mg/dL Ur Leukocyte Esterase Negative (Negative) Urine RBC 2 (0-5) /hpf Urine WBC <1 (0-5) /hpf Ur Squamous Epith Cells 1 (0-4) /hpf Urine Bacteria Rare H (None) /hpf Hyaline Casts 15 H (0-2) /lpf Urine Mucus Rare H (None) /hpf - Radiology Data Radiology results: report reviewed (CT head and pelvis negative for acute disease), image reviewed Disposition Clinical Impression: Chronic pancreatitis Disposition: HOME SELF-CARE Condition: Good Instructions (If sedation given, give patient instructions): Pancreatitis (ED) Is patient prescribed a controlled substance at d/c from ED?: No Referrals: Lacey Arevalo DO [Primary Care Provider] - 1-2 days
[2022-03-05 02:39] LABS: Basophils % (A) 1 %; Eosinophils # (A) 0.1 k/uL (0-0.7); Eosinophils % (A) 2 %; HCT 35.9 % (34.0-46.0); HGB 12.1 gm/dL (11.4-16.0); Lymphocytes # (A) 2.1 k/uL (1.0-4.8); Lymphocytes % (A) 26 %; MCH 31.7 pg (25.0-35.0); MCHC 33.8 g/dL (31.0-37.0); MCV 93.9 fL (80.0-100.0); Mean Platelet Volume 8.9; Monocytes # (A) 0.7 k/uL (0-1.0); Monocytes % (A) 8 %; Neutrophils % (A) 62 %; Platelet Count 203 k/uL (150-450); RBC 3.82 m/uL (3.80-5.40); RDW 15.3 % (11.5-15.5)
[2022-03-05 03:31] LABS: Albumin 4.1 g/dL (3.5-5.0); Calcium 9.3 mg/dL (8.4-10.2); Potassium 4.4 mmol/L (3.5-5.1); Total Bilirubin 0.7 mg/dL (0.2-1.3); Total Protein 6.9 g/dL (6.3-8.2)
[2022-03-05 03:37] LABS: Appearance,Urine Clear (Clear); Bacteria,Urine Rare /hpf; Bilirubin,Urine Negative (Negative); Blood,Urine Trace (Negative); Color,Urine Yellow; Glucose,Urine (UA) Negative (Negative); Hyaline Casts,Urine 15 /lpf (0-2); Ketones,Urine Negative (Negative); Leukocyte Esterase,Urine Negative (Negative); Mucus,Urine Rare /hpf; Nitrite,Urine Negative (Negative); PH, Urine 6.5 (5.0-8.0); Protein,Urine Trace (Negative); RBC,Urine 2 /hpf (0-5); Specific Gravity,Urine 1.014 (1.001-1.035); Squamous Epithelial Cell,Urine 1 /hpf (0-4); Urobilinogen,Urine <2.0 mg/dL (<2.0); WBC,Urine <1 /hpf (0-5)
[2022-03-05 03:43] VITALS: TEMP 98.1
--- NOTE | 2022-03-05 04:37 | CT ---
EXAMINATION TYPE: CT abdomen pelvis wo con DATE OF EXAM: 03/05/2022 COMPARISON: 06/26/2021 HISTORY: Abdominal pain CT DLP: 971.2 mGycm Automated exposure control for dose reduction was used. Images obtained from the diaphragm to the floor the pelvis without contrast. Lung bases are clear. There is no pleural effusion. Heart size is within normal limits. There is no p ericardial effusion. There is some air in the anterior biliary tree. There are clips from cholecystectomy. Liver shows no focal defect. Spleen is intact. Stomach is intact. There is extensive pancreatic atrophy. This absenc e of the body and tail of the pancreas. There are multiple pancreatic punctate calcifications at the pancreatic head. No discrete pancreatic mass. There is no adrenal mass. There are bilateral renal cortical cysts that measure up to 1.5 cm. There i s a 3 mm calculus lateral right kidney. There is no hydronephrosis. Ureters are not dilated. There is no retroperitoneal adenopathy. Bladder distends smoothly. There is no inguinal hernia. Uterus is ant everted. No pelvic mass seen. There is no mesenteric edema. No ascites or free air. No bowel obstruct ion. Lumbar vertebrae abnormal alignment. There is no compression fracture. Disc spaces are fairly normal. The bony pelvis is intact. Hip joints are intact. Appendix is not seen. IMPRESSION: There is absence of the body and tail of the pancreas that could be from surgery. There is multiple s mall calcifications in the pancreatic head consistent with chronic pancreatitis. This appears stable compared to old exam. No suspicious mass. Reflux of air seen in the biliary tree without change. Bilateral renal cortical cysts that appear somewhat atypical but appear stable compared to old exam.
[2022-03-05 05:18] VITALS: BP 162/75; PULSE 95; RESP 18
== END 2022-03-05 05:17 | disposition home or self-care (01) ==
LOC: EC 20:53
DX: K86.1 Other chronic pancreatitis (principal); E11.9 Type 2 diabetes mellitus without complications; I10 Essential (primary) hypertension; I25.10 Atherosclerotic heart disease of native coronary artery without angina pectoris; E78.5 Hyperlipidemia, unspecified; Z79.4 Long term (current) use of insulin; Z79.01 Long term (current) use of anticoagulants; Z79.899 Other long term (current) drug therapy; Z86.711 Personal history of pulmonary embolism; Z86.718 Personal history of other venous thrombosis and embolism
CPT/HCPCS: 36415; 80053; 82150; 83605; 83690; 85025; 81001; 74176; 99284; 96374; 96375 ×3; 96361; J1200; J2930; J2405

== ENCOUNTER → 2022-03-06 | Outpatient (CLI) | payer MEDICARE, BC ==
--- NOTE | 2022-03-08 21:23 | PE ---
EXAMINATION TYPE: PET CT fusion skull to thigh DATE OF EXAM: 03/06/2022 COMPARISON: Most recent CT abdomen and pelvis March 05, 2022 and older CTs HISTORY: Solitary pulmonary nodule, abnormal CT TECHNIQUE: Following the intravenous administration of 9.4 mCi of F-18 FDG, whole body images are pe rformed from the skull base to the midthigh. Images are reviewed on the computer in the coronal, axi al, and sagittal planes. Reconstructed rotating images are created on independent workstation and re viewed on the computer. A localization and attenuation correction CT is performed in conjunction wi th the PET scan. Blood glucose level equals 86 SCAN: Initial Scan FINDINGS: Slightly suboptimal secondary to large body habitus. SKULL BASE AND NECK: No areas of abnormal hypermetabolic uptake. CHEST, MEDIASTINUM, AND HILAR REGION: No areas of abnormal hypermetabolic uptake. Smaller subcentimet er nodules are better seen on diagnostic CT versus attenuation correction CT. ABDOMEN AND PELVIS: No areas of abnormal hypermetabolic uptake. Normal excretion. Mild nonspecific maureen wel uptake. OSSEOUS STRUCTURES: No areas of abnormal hypermetabolic uptake. OTHER CT: At least moderate three-vessel coronary artery calcification. Mild cardiomegaly. Prominent pulmonary arteries raises concern for underlying pulmonary artery hypertension. Central pneumobilia. Cholecystectomy clips. Severe fatty-replaced atrophy of the pancreas with some c alcifications in the inferior head. Cortical volume loss and small size to both kidneys. IMPRESSION: No abnormal hypermetabolic uptake to suggest malignancy. Scattered subcentimeter nodule s hould be followed as per Fleischner Society recommendations. Consider CT scan or PET/CT monitoring in 6-12 months time to reassess.
== END | disposition home or self-care (01) ==
LOC: RADXRMAIN 08:13
PROVIDERS: ATTEND Nurse Practitioner Adult Health
DX: R91.1 Solitary pulmonary nodule (principal)
CPT/HCPCS: 78815; A9552

== ENCOUNTER → 2022-08-11 | Outpatient (CLI) | payer MEDICARE, BC ==
--- NOTE | 2022-08-11 09:00 | CT ---
EXAMINATION TYPE: CT abdomen pelvis wo con DATE OF EXAM: 08/11/2022 HISTORY: Pain under Rt rib cage, Rt flank pain, hematuria CT DLP: 984.4 mGycm. Automated Exposure Control for Dose Reduction was Utilized. TECHNIQUE: CT scan of the abdomen and pelvis is performed with oral but without IV contrast. COMPARISON: Prior CT March 05, 2022 FINDINGS: Within the limitations of a non-contrast study, the following observations are made. LUNG BASES: Mild Cardiomegaly redemonstrated. Coronary artery calcification again seen. LIVER/GB: Cholecystectomy clips redemonstrated. Central pneumobilia again seen. No new biliary dilata tion. PANCREAS: Nonvisualization and/or Severe atrophy of the pancreas redemonstrated with some focal calci fications in the inferior head and uncinate process again seen. SPLEEN: No significant abnormality is seen. ADRENALS: No significant abnormality is seen. KIDNEYS: Stable 4 mm nonobstructing calculus posterior right kidney midpole level axial image 54. The re are 2 subcentimeter partially exophytic low dense lesions in the right kidney presumed benign for reference axial image 47 upper pole level laterally. No hydronephrosis or obstructing ureteral calcul i seen bilaterally. BOWEL: Oral contrast does not reach level of terminal ileum making evaluation of distal bowel slightl y suboptimal. No suspicious small or large bowel dilatation. GENITAL ORGANS: Anteverted uterus. Occasional scattered tiny pelvic phleboliths. LYMPH NODES: No greater than 1cm abdominal or pelvic lymph nodes are appreciated. OSSEOUS STRUCTURES: Multilevel facet arthropathy in the lower lumbar spine. Vacuum disc phenomenon, w ith mild disc space narrowing and moderate anterior spurring L1-L2 level. Posterior disc herniation e ffaces anterior thecal sac at L4-L5 level axial image 83. OTHER: Mild/moderate calcified plaque of the aorta extends into branch vessels. Tiny fat-containing u mbilical hernia redemonstrated. IMPRESSION: 1. Stable 4 mm nonobstructing right renal calculus. No hydronephrosis or obstructing ureteral calculi bilaterally. No suspicious new or acute findings are evident to account for patient's symptoms of ri ght abdominal and flank pain
== END | disposition home or self-care (01) ==
LOC: RADCTMAIN 06:39
PROVIDERS: ATTEND Family Medicine
DX: N20.0 Calculus of kidney (principal); R31.9 Hematuria, unspecified
CPT/HCPCS: 74176

== ENCOUNTER → 2023-03-26 | Outpatient (CLI) | payer MEDICARE, BC ==
--- NOTE | 2023-03-26 11:13 | PE ---
EXAMINATION TYPE: PET CT fusion skull to thigh DATE OF EXAM: 03/26/2023 COMPARISON: Prior PET/CT March 06, 2022 HISTORY: Solitary pulmonary nodule, abnormal CT. TECHNIQUE: Following the intravenous administration of 13.0 mCi of F-18 FDG, whole body images are p erformed from the skull base to the midthigh. Images are reviewed on the computer in the coronal, ax ial, and sagittal planes. Reconstructed rotating images are created on independent workstation and r eviewed on the computer. A localization and attenuation correction CT is performed in conjunction w ith the PET scan. Blood glucose level equals 147. SCAN: Subsequent Scan FINDINGS: Exam remains Slightly suboptimal secondary to large body habitus. SKULL BASE AND NECK: No areas of abnormal hypermetabolic uptake. CHEST, MEDIASTINUM, AND HILAR REGION: No new areas of abnormal hypermetabolic uptake. No new or enlar ging greater than 1 cm nodules are identified ABDOMEN AND PELVIS: No areas of abnormal hypermetabolic uptake. Normal excretion. Nonspecific bowel u ptake is redemonstrated. OSSEOUS STRUCTURES: No areas of abnormal hypermetabolic uptake. OTHER CT: Moderate to severe three-vessel coronary artery calcification is redemonstrated. Mild cardi omegaly. Central pneumobilia is redemonstrated. Cholecystectomy clips are again seen. Severe fatty-replaced at rophy of the pancreas with some calcifications in the inferior head redemonstrated. Cortical volume l oss and small size to both kidneys. IMPRESSION: No abnormal hypermetabolic uptake to suggest malignancy . No significant change from prio r.
== END | disposition home or self-care (01) ==
LOC: RADPETMAIN 07:32
PROVIDERS: ATTEND Internal Medicine Critical Care Medicine
DX: R91.1 Solitary pulmonary nodule (principal)
CPT/HCPCS: 78815; A9552

== ENCOUNTER → 2023-07-09 | Outpatient (CLI) | payer MEDICARE, BC ==
--- NOTE | 2023-07-09 13:07 | US ---
EXAMINATION TYPE: US renals and bladder DATE OF EXAM: 07/09/2023 COMPARISON: Multiple CT's and US dated 04/18/2019. CLINICAL INDICATION: Female, 68 years old with history of N18.4 CHRONIC KIDNEY DISEASE, STAGE 4; EXAM MEASUREMENTS: Right Kidney: 7.2 x 3.6 x 3.6 cm Left Kidney: 7.7 x 3.5 x 4.0 cm Post Void Residual Volume: no residual seen. Right Kidney: two exophytic area seen largest measures 1.0 x 0.9 x 1.3 cm. Left Kidney: midpole hypoechoic area seen measuring 1.6 x 1.7 x 1.7 cm, probable cyst. Bladder: wnl Bilateral Jets seen: Yes Normal Post Void Residual: yes. There is no evidence for hydronephrosis at this point in time. No nephrolithiasis is seen. The urin lucy bladder is anechoic. Bilateral ureteral jets are seen. IMPRESSION: Renal cystic changes. Renal parenchymal thinning with increased echogenicity of the renal cortex gladys cating medical renal disease.
== END | disposition home or self-care (01) ==
LOC: RADUSWWP 12:36
PROVIDERS: ATTEND Internal Medicine Nephrology
DX: N18.4 Chronic kidney disease, stage 4 (severe) (principal); N28.1 Cyst of kidney, acquired
CPT/HCPCS: 76770

== ENCOUNTER 2023-11-28 12:39 | Emergency (ER) | payer MEDICARE, BC ==
--- NOTE | 2023-11-28 13:59 | ED ---
General Adult HPI - General Chief complaint: Extremity Problem,Nontraumatic Stated complaint: Right leg swelling Time Seen by Provider: 11/28/23 12:47 Source: patient, RN notes reviewed Mode of arrival: ambulatory Limitations: no limitations - History of Present Illness Initial comments: 68-year-old female presents emergency department for evaluation of right medial leg ecchymosis. She states that she noticed this yesterday but noticed today that her knee seems more swollen. She states that she has been able to ambulate on it. She denies any recent trauma. She is currently on Coumadin which she is taking as prescribed. She states her last PT/INR was checked around 2 weeks ago and within therapeutic range. She denies recent fever, chills, redness to the leg. - Related Data Home Medications Medication Instructions Recorded Confirmed Ergocalciferol (Vitamin D2) 50,000 unit PO SA 07/13/16 08/24/19 [Drisdol] Cyanocobalamin (Vitamin B-12) 500 mcg PO DAILY 11/16/18 08/24/19 [Vitamin B-12] allopurinoL [Zyloprim] 50 mg PO DAILY 11/16/18 08/24/19 Furosemide [Lasix] 40 mg PO DAILY 11/26/18 08/24/19 Magnesium Oxide 400 mg PO DAILY 01/17/19 08/24/19 Potassium Chloride ER [K-Dur 10] 10 meq PO DAILY 01/17/19 08/24/19 Warfarin Sodium 6 mg PO MOWEFRSA 01/17/19 08/24/19 Warfarin Sodium [Coumadin] 4 mg PO SUTUTH 01/17/19 08/24/19 Insulin Aspart (For Pump) [NovoLOG 0.01 unit SQ-PUMP CONTINUOUS 08/24/19 08/24/19 (For Pump)] Previous Rx's Medication Instructions Recorded Pravastatin Sodium [Pravachol] 40 mg PO HS tab 12/07/18 Magnesium Oxide [Mag-Ox] 400 mg PO DAILY #30 tablet 05/11/21 methocarbamoL [Robaxin-750] 750 mg PO TID PRN #30 tablet 05/11/21 Allergies Allergy/AdvReac Type Severity Reaction Status Date / Time azithromycin Allergy Unknown Rash/Hives Verified 03/04/22 21:56 amoxicillin Allergy Rash/Hives Verified 03/04/22 21:56 metronidazole [From Flagyl] Allergy Unknown Verified 03/04/22 21:56 Iodinated Contrast Media AdvReac KIDNEY Verified 03/04/22 21:56 [Iodinated Contrast- Oral and IV Dye] Review of Systems ROS Statement: Those systems with pertinent positive or pertinent negative responses have been documented in the HPI. ROS Other: All systems not noted in ROS Statement are negative. Past Medical History Past Medical History: Coronary Artery Disease (CAD), Diabetes Mellitus, Deep Vein Thrombosis (DVT), Hyperlipidemia, Hypertension, Pulmonary Embolus (PE), Renal Disease Additional Past Medical History / Comment(s): Vitamin D Deficency, pt has insulin pump, elevated liver enzymes History of Any Multi-Drug Resistant Organisms: None Reported Past Surgical History: Appendectomy, Cholecystectomy Additional Past Surgical History / Comment(s): Breast Biopsy, Carapal tunnel to right hand, Heart Catherization, colonoscopy 08/2014 Past Anesthesia/Blood Transfusion Reactions: No Reported Reaction Past Psychological History: No Psychological Hx Reported Smoking Status: Never smoker Past Alcohol Use History: Occasional Past Drug Use History: None Reported - Past Family History Mother Family Medical History: No Reported History Additional Family Medical History / Comment(s): heart disease Father Additional Family Medical History / Comment(s): heart disease General Exam Limitations: no limitations General appearance: alert, in no apparent distress Head exam: Present: atraumatic, normocephalic, normal inspection Eye exam: Present: normal appearance, PERRL, EOMI. Absent: scleral icterus, co njunctival injection, periorbital swelling ENT exam: Present: normal exam, mucous membranes moist Neck exam: Present: normal inspection. Absent: tenderness, meningismus, lymphadenopathy Respiratory exam: Present: normal lung sounds bilaterally. Absent: respiratory distress, wheezes, rales, rhonchi, stridor Cardiovascular Exam: Present: regular rate, normal rhythm, normal heart sounds. Absent: systolic murmur, diastolic murmur, rubs, gallop, clicks Extremities exam: Present: full ROM, normal capillary refill, other (DP and PT pulses 2+, ecchymosis to the right medial knee, no calf tenderness). Absent: tenderness Neurological exam: Present: alert, oriented X3 Psychiatric exam: Present: normal affect, normal mood Skin exam: Present: warm, dry, intact, other (ecchymosis). Absent: normal color Course Vital Signs 11/28/23 11/28/23 12:43 15:49 Temperature 97.6 F 97.8 F Pulse Rate 75 62 Respiratory 16 18 Rate Blood Pressure 152/90 146/66 O2 Sat by Pulse 98 98 Oximetry Medical Decision Making - Medical Decision Making Was pt. sent in by a medical professional or institution (, CORRY, LICENSE CLERK, urgent care, hospital, or skilled nursing...) When possible be specific @ -No Did you speak to anyone other than the patient for history (EMS, parent, family, police, friend...)? What history was obtained from this source @ -No Did you review nursing and triage notes (agree or disagree)? Why? @ -I reviewed and agree with nursing and triage notes Were old charts reviewed (outside hosp., previous admission, EMS record, old EKG, old radiological studies, urgent care reports/EKG's, skilled nursing records)? Report findings @ -No old charts were reviewed Differential Diagnosis (chest pain, altered mental status, abdominal pain women, abdominal pain men, vaginal bleeding, weakness, fever, dyspnea, syncope, headache, dizziness, GI bleed, back pain, seizure, CVA, palpatations, mental health, musculoskeletal)? @ -Differential Musculoskeletal Muscular strain, contusion, ligament sprain, fracture, arthritis, septic arthritis, bursitis, cellulitis, muscle spasm, nerve compression, DVT, arterial occlusion, herpes zoster, electrolyte abnormality, tumor.... This is not meant to be in all inclusive list EKG interpreted by me (3pts min.). @ -None X-rays interpreted by me (1pt min.). @ -. X-ray of the right leg shows no acute fracture or dislocation CT interpreted by me (1pt min.). @ -None done U/S interpreted by me (1pt. min.). @ -Ultrasound right lower extremity shows no acute DVT What testing was considered but not performed or refused? (CT, X-rays, U/S, labs)? Why? @ -None What meds were considered but not given or refused? Why? @ -None Did you discuss the management of the patient with other professionals (professionals i.e. CORRY Drummond, LICENSE CLERK, lab, RT, psych nurse, director of social services, burn table operator, teacher, digital controls technical officer, mattress spring encaser)? Give summary @ -No Was smoking cessation discussed for >3mins.? @ -No Was critical care preformed (if so, how long)? @ -No Were there social determinants of health that impacted care today? How? (Homelessness, low income, unemployed, alcoholism, drug addiction, transportation, low edu. Level, literacy, decrease access to med. care, senior care, rehab)? @ -No Was there de-escalation of care discussed even if they declined (Discuss DNR or withdrawal of care, Hospice)? DNR status @ -No What co-morbidities impacted this encounter? (DM, HTN, Smoking, COPD, CAD, Cancer, CVA, ARF, Chemo, Hep., AIDS, mental health diagnosis, sleep apnea, morbid obesity)? @ -None Was patient admitted / discharged? Hospital course, mention meds given and route, prescriptions, significant lab abnormalities, going to OR and other pertinent info. @ -Discharged. Patient presented to the emergency department for right lower extremity swelling. Patient is on blood thinners or taking them as prescribed. X-rays obtained shows no acute fracture dislocation. Ultrasound of the right lower extremity shows no acute DVT. Patient advised of these findings into utilize Tylenol and as well as ice, elevation. Patient is understanding and agreeable with discharge February patient with bitemporal pressure. Case discussed with Dr. Baptiste Undiagnosed new problem with uncertain prognosis? @ -No Drug Therapy requiring intensive monitoring for toxicity (Heparin, Nitro, Insulin, Cardizem)? @ -No Were any procedures done? @ -No Diagnosis/symptom? @ -Right lower extremity swelling Acute, or Chronic, or Acute on Chronic? @ -Acute Uncomplicated (without systemic symptoms) or Complicated (systemic symptoms)? @ -uncomplicated Side effects of treatment? @ -No Exacerbation, Progression, or Severe Exacerbation? @ -No Poses a threat to life or bodily function? How? (Chest pain, [place], [place], pneumonia, PE, COPD, DKA, ARF, appy, cholecystitis, CVA, Diverticulitis, Homicidal, Suicidal, threat to staff... and all critical care pts) @ -No Disposition Clinical Impression: Right leg pain, Right leg swelling Disposition: HOME SELF-CARE Condition: Stable Instructions (If sedation given, give patient instructions): P.R.I.C.E. Treatment (ED) Additional Instructions: Please follow up with your primary care provider. Return to the emergency department for new or worsening symptoms. Is patient prescribed a controlled substance at d/c from ED?: No Referrals: Lacey Arevalo DO [Primary Care Provider] - 1-2 days
--- NOTE | 2023-11-28 13:59 | XR ---
EXAMINATION TYPE: XR tibia fibula RT DATE OF EXAM: 11/28/2023 1:37 PM CLINICAL INDICATION:Female, 68 years old with history of pain, bruising; [facility] COMPARISON: None TECHNIQUE: XR tibia fibula RT; tibia/fibula was examined in AP and lateral projections. FINDINGS: No evidence of any acute osseous pathology, joint dislocation. There is soft tissue swellin g/edema throughout the leg.. Atherosclerosis of the arterial vasculature. Mild degeneration changes o f the knee with osteophyte formation and joint space narrowing. IMPRESSION: Soft tissue swelling of the lower leg. No evidence of fracture.
--- NOTE | 2023-11-28 15:02 | US ---
EXAMINATION TYPE: US venous doppler duplex LE RT DATE OF EXAM: 11/28/2023 2:11 PM COMPARISON: NONE CLINICAL INDICATION: Female, 68 years old with history of pain, swelling; Right leg edema. Patient on Warfarin SIDE PERFORMED: right TECHNIQUE: The lower extremity deep venous system is examined utilizing real time linear array sonog isaac with graded compression, doppler sonography and color-flow sonography. VESSELS IMAGED: Common Femoral Vein Deep Femoral Vein Greater Saphenous Vein * Femoral Vein Popliteal Vein Small Saphenous Vein * Proximal Calf Veins (* superficial vessels) Right Leg: No evidence of DVT as visualized IMPRESSION: Grayscale, color doppler, spectral doppler imaging performed of the deep veins of the lo wer extremities. There is normal flow, compressibility, vascular waveforms.
[2023-11-28 15:50] VITALS: BP 146/66; PULSE 62; RESP 18; TEMP 97.8
== END 2023-11-28 15:51 | disposition home or self-care (01) ==
LOC: EC 12:39
DX: R22.41 Localized swelling, mass and lump, right lower limb (principal); I25.10 Atherosclerotic heart disease of native coronary artery without angina pectoris; E11.9 Type 2 diabetes mellitus without complications; E78.5 Hyperlipidemia, unspecified; I10 Essential (primary) hypertension; Z86.718 Personal history of other venous thrombosis and embolism; Z88.0 Allergy status to penicillin; Z91.041 Radiographic dye allergy status; Z88.8 Allergy status to other drugs, medicaments and biological substances; Z79.4 Long term (current) use of insulin; Z79.02 Long term (current) use of antithrombotics/antiplatelets; Z79.899 Other long term (current) drug therapy
CPT/HCPCS: 99284

== ENCOUNTER 2024-02-27 17:26 | Emergency (ER) | payer MEDICARE, BC ==
[2024-02-27 17:46] VITALS: RESP 18; TEMP 98
--- NOTE | 2024-02-27 17:49 | ED ---
Lower Extremity Injury HPI - General Chief Complaint: Extremity Injury, Lower Stated Complaint: Fall injury to R knee Time Seen by Provider: 02/27/24 17:35 Source: patient, RN notes reviewed Mode of arrival: ambulatory Limitations: no limitations - History of Present Illness Initial Comments: 68-year-old female presents emergency department chief complaint of right knee pain. Patient states that she slipped on some water falling directly onto her right knee. She complains of right anterior lateral knee pain. She states it is worse when she bears any weight she feels little pressure when she fully flexes or extends it. Patient denies any paresthesias no other injuries denies head injury no loss conscious. - Related Data Home Medications Medication Instructions Recorded Confirmed Ergocalciferol (Vitamin D2) 50,000 unit PO SA 07/13/16 08/24/19 [Drisdol] Cyanocobalamin (Vitamin B-12) 500 mcg PO DAILY 11/16/18 08/24/19 [Vitamin B-12] allopurinoL [Zyloprim] 50 mg PO DAILY 11/16/18 08/24/19 Furosemide [Lasix] 40 mg PO DAILY 11/26/18 08/24/19 Magnesium Oxide 400 mg PO DAILY 01/17/19 08/24/19 Potassium Chloride ER [K-Dur 10] 10 meq PO DAILY 01/17/19 08/24/19 Warfarin Sodium 6 mg PO MOWEFRSA 01/17/19 08/24/19 Warfarin Sodium [Coumadin] 4 mg PO SUTUTH 01/17/19 08/24/19 Insulin Aspart (For Pump) [NovoLOG 0.01 unit SQ-PUMP CONTINUOUS 08/24/19 08/24/19 (For Pump)] Previous Rx's Medication Instructions Recorded Pravastatin Sodium [Pravachol] 40 mg PO HS tab 12/07/18 Magnesium Oxide [Mag-Ox] 400 mg PO DAILY #30 tablet 05/11/21 methocarbamoL [Robaxin-750] 750 mg PO TID PRN #30 tablet 05/11/21 Allergies Allergy/AdvReac Type Severity Reaction Status Date / Time azithromycin Allergy Unknown Rash/Hives Verified 02/27/24 17:34 amoxicillin Allergy Rash/Hives Verified 02/27/24 17:34 metronidazole [From Flagyl] Allergy Unknown Verified 02/27/24 17:34 Iodinated Contrast Media AdvReac KIDNEY Verified 02/27/24 17:34 [Iodinated Contrast- Oral and IV Dye] Review of Systems ROS Statement: Those systems with pertinent positive or pertinent negative responses have been documented in the HPI. ROS Other: All systems not noted in ROS Statement are negative. Past Medical History Past Medical History: Coronary Artery Disease (CAD), Diabetes Mellitus, Deep Vein Thrombosis (DVT), Hyperlipidemia, Hypertension, Pulmonary Embolus (PE), Renal Disease Additional Past Medical History / Comment(s): Vitamin D Deficency, pt has insulin pump, elevated liver enzymes History of Any Multi-Drug Resistant Organisms: None Reported Past Surgical History: Appendectomy, Cholecystectomy Additional Past Surgical History / Comment(s): Breast Biopsy, Carapal tunnel to right hand, Heart Catherization, colonoscopy 08/2014 Past Anesthesia/Blood Transfusion Reactions: No Reported Reaction Past Psychological History: No Psychological Hx Reported Smoking Status: Never smoker Past Alcohol Use History: Occasional Past Drug Use History: None Reported - Past Family History Mother Family Medical History: No Reported History Additional Family Medical History / Comment(s): heart disease Father Additional Family Medical History / Comment(s): heart disease General Exam Limitations: no limitations General appearance: alert, in no apparent distress Head exam: Present: atraumatic, normocephalic, normal inspection Respiratory exam: Present: normal lung sounds bilaterally. Absent: respiratory distress, wheezes, rales, rhonchi, stridor Cardiovascular Exam: Present: regular rate, normal rhythm, normal heart sounds. Absent: systolic murmur, diastolic murmur, rubs, gallop, clicks Extremities exam: Present: other (Right knee full range of motion mild lateral knee tenderness along the joint line, there is swelling, ecchymosis noted no tenderness above or below the right knee neurovascular intact) Course Vital Signs 02/27/24 02/27/24 17:32 19:37 Temperature 98 F Pulse Rate 82 84 Respiratory 18 18 Rate Blood Pressure 166/77 162/82 O2 Sat by Pulse 97 95 Oximetry Medical Decision Making - Medical Decision Making Was pt. sent in by a medical professional or institution (, PA, MANAGER EMBALMER FUNERAL DIRECTOR, urgent care, hospital, or senior care...) When possible be specific @ -No Did you speak to anyone other than the patient for history (EMS, parent, family, police, friend...)? What history was obtained from this source @ -No Did you review nursing and triage notes (agree or disagree)? Why? @ -I reviewed and agree with nursing and triage notes Were old charts reviewed (outside hosp., previous admission, EMS record, old EKG, old radiological studies, urgent care reports/EKG's, senior care records)? Report findings @ -No old charts were reviewed Differential Diagnosis (chest pain, altered mental status, abdominal pain women, abdominal pain men, vaginal bleeding, weakness, fever, dyspnea, syncope, headache, dizziness, GI bleed, back pain, seizure, CVA, palpatations, mental health, musculoskeletal)? @ -Fall, knee contusion, knee sprain, internal derangement, leg fracture EKG interpreted by me (3pts min.). @ -None X-rays interpreted by me (1pt min.). @ -X-ray right knee shows questionable lateral tibial plateau fracture CT interpreted by me (1pt min.). @ -CT of the knee showing no evidence of acute fracture degenerative changes noted. U/S interpreted by me (1pt. min.). @ -None done What testing was considered but not performed or refused? (CT, X-rays, U/S, labs)? Why? @ -None What meds were considered but not given or refused? Why? @ -None Did you discuss the management of the patient with other professionals (professionals i.e. , PA, MANAGER EMBALMER FUNERAL DIRECTOR, lab, RT, psych nurse, social services specialist, trial lawyer, teacher, medical corps officer, gearcase assembler)? Give summary @ -No Was smoking cessation discussed for >3mins.? @ -No Was critical care preformed (if so, how long)? @ -No Were there social determinants of health that impacted care today? How? (Homelessness, low income, unemployed, alcoholism, drug addiction, transportation, low edu. Level, literacy, decrease access to med. care, [facility], rehab)? @ -No Was there de-escalation of care discussed even if they declined (Discuss DNR or withdrawal of care, Hospice)? DNR status @ -No What co-morbidities impacted this encounter? (DM, HTN, Smoking, COPD, CAD, Cancer, CVA, ARF, Chemo, Hep., AIDS, mental health diagnosis, sleep apnea, morbid obesity)? @ -None Was patient admitted / discharged? Hospital course, mention meds given and route, prescriptions, significant lab abnormalities, going to OR and other pertinent info. @ -Discharge patient had CT to confirm possible fracture which was not evident. Patient has right knee contusion she has a current walker but requests walker with wheels that is foldable. Prescription is written. She is also requesting bedside commode. This is written prescription. Patient provided analgesics as needed patient will follow-up with orthopedics. Return brands were discussed. Undiagnosed new problem with uncertain prognosis? @ -No Drug Therapy requiring intensive monitoring for toxicity (Heparin, Nitro, Insulin, Cardizem)? @ -No Were any procedures done? @ -No Diagnosis/symptom? @Fall, knee contusion Acute, or Chronic, or Acute on Chronic? @ -Acute Uncomplicated (without systemic symptoms) or Complicated (systemic symptoms)? @ -Uncomplicated Side effects of treatment? @ -No Exacerbation, Progression, or Severe Exacerbation? @ -No Poses a threat to life or bodily function? How? (Chest pain, [place], [place], pneumonia, PE, COPD, DKA, ARF, appy, cholecystitis, CVA, Diverticulitis, Homicidal, S uicidal, threat to staff... and all critical care pts) @ -No Disposition Clinical Impression: Contusion of right knee, Right knee sprain Disposition: HOME SELF-CARE Condition: Stable Instructions (If sedation given, give patient instructions): Knee Sprain (ED), Knee Pain (ED) Additional Instructions: Please return to the Emergency Department if symptoms worsen or any other concerns. Is patient prescribed a controlled substance at d/c from ED?: No Referrals: Lacey Arevalo DO [Primary Care Provider] - 1-2 days Alli Acosta MD [Medical Doctor] - 1-2 days
--- NOTE | 2024-02-27 19:02 | XR ---
EXAMINATION TYPE: XR knee complete RT DATE OF EXAM: 02/27/2024 5:56 PM CLINICAL INDICATION:Female, 68 years old with history of fall, pain; [facility] COMPARISON: None. TECHNIQUE: XR knee complete RT; examined in Frontal, lateral and oblique projections. FINDINGS: Limited exam due to patient body habitus. Osseous mineralization appears appropriate. No evidence of destructive lesion or aggressive periostit is. No acute fracture or dislocation. Mild tricompartmental osteoarthropathy, greatest in the patello femoral compartment. Unremarkable soft tissues without significant joint effusion or radiopaque forei gn body seen. IMPRESSION: No acute fracture or dislocation.
--- NOTE | 2024-02-27 19:19 | CT ---
EXAMINATION TYPE: CT knee RT wo con DATE OF EXAM: 02/27/2024 COMPARISON: Plain films same day HISTORY: pain after fall. r/o fx. prior xr in pacs CT DLP: 210 mGycm Automated exposure control for dose reduction was used. Contrast: None Technique: Axial images 3 mm thick sections. Reconstructed images in the coronal and sagittal planes. 3-D reconstructive images performed on a separate computer by the technologist are presented. FINDINGS: There is narrowing of the patellofemoral joint space. There is narrowing of the medial compartment carroll int space. Subchondral cyst appears to be present at the distal medial femoral condyle. Mild narrowin g of the lateral knee joint space is present. No acute fractures are evident. Vascular calcification is present. No joint effusion is evident. Ante rior superior patellar spur is noted. IMPRESSION: 1. DIFFUSE JOINT SPACE NARROWING MAY BE GREATEST IN THE MEDIAL COMPARTMENT. 2. NO ACUTE FRACTURES EVIDENT
[2024-02-27 19:59] VITALS: BP 162/82; PULSE 84
[2024-02-27] MEDS: ACET/COD 300 MG/30 MG STARTER PACK 6 TAB BTL PO STA (20:01)
== END 2024-02-27 20:10 | disposition home or self-care (01) ==
LOC: EC 17:26
DX: S83.91XA Sprain of unspecified site of right knee, initial encounter (principal); Z88.1 Allergy status to other antibiotic agents; Z91.041 Radiographic dye allergy status; Z88.0 Allergy status to penicillin; W01.0XXA Fall on same level from slipping, tripping and stumbling without subsequent striking against object, initial encounter
CPT/HCPCS: 99284

== ENCOUNTER 2024-03-21 09:02 | Observation (INO) | payer MEDICARE, BC ==
--- NOTE | 2024-03-21 10:07 | XR ---
EXAMINATION TYPE: XR chest 2V DATE OF EXAM: 03/21/2024 10:02 AM CLINICAL INDICATION:Female, 68 years old with history of syncope; [facility] COMPARISON: Chest radiographs from 11/26/2018 TECHNIQUE: XR chest 2V Frontal and lateral views of the chest. FINDINGS: Lungs/Pleura: There is no evidence of pleural effusion, focal consolidation, or pneumothorax. Pulmonary vascularity: Unremarkable. Heart/mediastinum: Cardiomediastinal silhouette is unremarkable. Musculoskeletal: No acute osseous pathology. Other findings: None Lines/Tubes: IMPRESSION: No acute cardiopulmonary disease/process.
--- NOTE | 2024-03-21 10:12 | ED ---
Dizziness HPI - General Source: patient, family, RN notes reviewed Mode of arrival: wheelchair Limitations: no limitations <Annmarie Diaz - Last Filed: 03/21/24 10:10> <Guillermo Santos - Last Filed: 03/21/24 17:33> - General Chief Complaint: Syncope Stated Complaint: left leg pain Time Seen by Provider: 03/21/24 09:15 - History of Present Illness Initial Comments: Pankaj noteaaron is a 68-year-old female with complaint of weakness after feelings of dizziness. Patient states that she fell on 02/26 injuring her right knee since she has been favoring the left side of her body. She states this morning when she woke up she was using a cane to go to the bathroom and had a buckling sensation of her legs where she fell down onto the ground. She said that this occurred 2 times this morning prompting her visit to the emergency department. She says that before she fell she was weak she had a dizziness sensation. (Annmarie Diaz) This is a 68-year-old female who presents to the emergency department stating she got up out of bed and went to the bathroom then she started feeling very we ak and slowly went to the ground. Patient states she almost passed out but did not pass out. Patient states she has a little new pain to the posterior aspect of her left knee other than that she did not injure self. Patient denies hitting her head or hurting her neck. Patient states she got up and walked out of the bathroom and had another episode that was very similar. Patient states she never did completely pass out. Patient denies any chest pain difficulty breathing or shortness of breath. Patient denies any recent fever chills or cough. Patient states she has been eating and drinking normally. Patient has stated she felt completely fine prior to that episode. Patient states when she did fall she became very diaphoretic. Patient only complaint currently is a little posterior knee pain but she still has full range of motion she states (Guillermo Santos) - Related Data Home Medications Medication Instructions Recorded Confirmed allopurinoL [Zyloprim] 50 mg PO DAILY 11/16/18 03/21/24 Insulin Aspart (For Pump) [NovoLOG 0.01 unit SQ-PUMP CONTINUOUS 08/24/19 03/21/24 (For Pump)] Atorvastatin [Lipitor] 40 mg PO DAILY 03/21/24 03/21/24 Cyclobenzaprine [Flexeril] 5 - 10 mg PO HS PRN 03/21/24 03/21/24 Furosemide [Lasix] 20 mg PO AC-BRKFST 03/21/24 03/21/24 Iron Polysaccharide Complex 150 mg PO MOWEFR 03/21/24 03/21/24 [Ferrex 150] Magnesium Oxide 420mg 420 mg PO BID 03/21/24 03/21/24 Warfarin [Coumadin] 6 mg PO DAILY 03/21/24 03/21/24 amLODIPine [Norvasc] 2.5 mg PO DAILY 03/21/24 03/21/24 calcitrioL 0.5 mcg PO MOWEFR 03/21/24 03/21/24 Allergies Allergy/AdvReac Type Severity Reaction Status Date / Time azithromycin Allergy Unknown Rash/Hives Verified 03/21/24 15:42 amoxicillin Allergy Rash/Hives Verified 03/21/24 15:42 metronidazole [From Flagyl] Allergy Unknown Verified 03/21/24 15:42 Iodinated Contrast Media AdvReac has KIDNEY Verified 03/21/24 15:42 [Iodinated Contrast- Oral issues and IV Dye] Review of Systems ROS Other: All systems not noted in ROS Statement are negative. <Annmarie Diaz - Last Filed: 03/21/24 10:10> ROS Other: All systems not noted in ROS Statement are negative. <Guillermo Santos - Last Filed: 03/21/24 17:33> ROS Statement: Those systems with pertinent positive or pertinent negative responses have been documented in the HPI. Past Medical History Past Medical History: Coronary Artery Disease (CAD), Diabetes Mellitus, Deep Vein Thrombosis (DVT), Hyperlipidemia, Hypertension, Pulmonary Embolus (PE), Renal Disease Additional Past Medical History / Comment(s): Vitamin D Deficency, pt has insulin pump, elevated liver enzymes History of Any Multi-Drug Resistant Organisms: None Reported Past Surgical History: Appendectomy, Cholecystectomy Additional Past Surgical History / Comment(s): Breast Biopsy, Carapal tunnel to right hand, Heart Catherization, colonoscopy 08/2014 Past Anesthesia/Blood Transfusion Reactions: No Reported Reaction Past Psychological History: No Psychological Hx Reported Smoking Status: Never smoker Past Alcohol Use History: Occasional Past Drug Use History: None Reported - Past Family History Mother Family Medical History: No Reported History Additional Family Medical History / Comment(s): heart disease Father Additional Family Medical History / Comment(s): heart disease <Annmarie Diaz - Last Filed: 03/21/24 10:10> General Exam Limitations: no limitations <Annmarie Diaz - Last Filed: 03/21/24 10:10> <Guillermo Santos - Last Filed: 03/21/24 17:33> - General Exam Comments Initial Comments: Visual Physical Exam Vital signs reviewed General: Well-appearing, nontoxic, no acute distress. Head: Normocephalic, atraumatic Eyes: PERRLA, EOMI ENT: Airway patent Chest: Nonlabored breathing Skin: No visual rash, normal skin tone Neuro: Alert and oriented 3 Musculoskeletal: No gross abnormalities (Annmarie Diaz) GENERAL: Patient is well-developed and well-nourished. Patient is nontoxic and well- hydrated and is in no acute distress. ENT: Neck is soft and supple. No significant lymphadenopathy is noted. Oropharynx is clear. Moist mucous membranes. Neck has full range of motion without eliciting any pain. EYES: The sclera were anicteric and conjunctiva were pink and moist. Extraocular movements were intact and pupils were equal round and reactive to light. Eyelids were unremarkable. PULMONARY: Unlabored respirations. Good breath sounds bilaterally. No audible rales rhonchi or wheezing was noted. CARDIOVASCULAR: There is a regular rate and rhythm without any murmurs gallops or rubs. ABDOMEN: Soft and nontender with normal bowel sounds. SKIN: Skin is clear with no lesions or rashes and otherwise unremarkable. NEUROLOGIC: Patient is alert and oriented x3. Cranial nerves II through XII are grossly intact. Motor and sensory are also intact. Normal speech, volume and content. Symmetrical smile. MUSCULOSKELETAL: Normal extremities with adequate strength and full range of motion. LYMPHATICS: No significant lymphadenopathy is noted PSYCHIATRIC: Normal psychiatric evaluation. (Guillermo Santos) Course Vital Signs 03/21/24 03/21/24 09:25 15:40 Temperature 97.9 F Pulse Rate 77 Pulse Rate [ 82 Right Sitting Pulse Oximetery ] Pulse Rate [ 70 Right Standing Pulse Oximetery ] Pulse Rate [ 77 Right Supine Pulse Oximetery ] Respiratory 16 Rate Blood Pressure 126/79 Blood Pressure 150/76 [Left Arm Sitting] Blood Pressure 65/47 [Left Arm Standing] Blood Pressure 154/79 [Left Arm Supine] O2 Sat by Pulse 95 Oximetry Medical Decision Making <Annmarie Diaz - Last Filed: 03/21/24 10:10> - Lab Data Result diagrams: 03/21/24 10:27 03/21/24 10:27 <SantosGuillermo portillo - Last Filed: 03/21/24 17:33> - Medical Decision Making I completed the quick note portion of this chart signed Annmarie Diaz PA-C (Annmarie Diaz) EKG is interpreted by myself but EKG shows a sinus rhythm at 71 bpm parables 146 QRS is 89 QT interval 363 QTc is 385. Patient's EKG shows no ST segment elevation or depression. Was pt. sent in by a medical professional or institution ([facility]mond, CHARM FILTER OPERATOR HELPER, urgent care, hospital, or penitentiary...) When possible be specific @ -No Did you speak to anyone other than the patient for history (EMS, parent, family, police, friend...)? What history was obtained from this source @ -No Did you review nursing and triage notes (agree or disagree)? Why? @ -I reviewed and agree with nursing and triage notes Were old charts reviewed (outside hosp., previous admission, EMS record, old EKG, old radiological studies, urgent care reports/EKG's, penitentiary records)? Report findings @ -I compared lab work today from prior visits and there is no significant difference. Differential Diagnosis (chest pain, altered mental status, abdominal pain women, abdominal pain men, vaginal bleeding, weakness, fever, dyspnea, syncope, headache, dizziness, GI bleed, back pain, seizure, CVA, palpatations, mental health, musculoskeletal)? @ -Differential Syncope: Valvular disease, hypertrophic cardiomyopathy, pulmonary embolism, tamponade, tachycardia, bradycardia, [place], hypovolemia, hemorrhage, dissection, anemia, intracranial hemorrhage, seizure, hypoglycemia, carbon monoxide poisoning, this is not meant to be an all-inclusive list. EKG interpreted by me (3pts min.). @ -As above X-rays interpreted by me (1pt min.). @ -Patient's x-ray of the knee and ankle show no acute abnormality CT interpreted by me (1pt min.). @ -None done U/S interpreted by me (1pt. min.). @ -None done What testing was considered but not performed or refused? (CT, X-rays, U/S, labs)? Why? @ -None What meds were considered but not given or refused? Why? @ -None Did you discuss the management of the patient with other professionals (professionals i.e. DrChapo, PA, CHARM FILTER OPERATOR HELPER, lab, RT, psych nurse, community mental health social worker, fire sprinkler installer, teacher, personal banking officer, family independence case manager)? Give summary @ -I spoke with [facility] hospitalist and they agreed to admit the patient Was smoking cessation discussed for >3mins.? @ -No Was critical care preformed (if so, how long)? @ -No Were there social determinants of health that impacted care today? How? (Homelessness, low income, unemployed, alcoholism, drug addiction, transportation, low edu. Level, literacy, decrease access to med. care, detention, rehab)? @ -No Was there de-escalation of care discussed even if they declined (Discuss DNR or withdrawal of care, Hospice)? DNR status @ -No What co-morbidities impacted this encounter? (DM, HTN, Smoking, COPD, CAD, Cancer, CVA, ARF, Chemo, Hep., AIDS, mental health diagnosis, sleep apnea, morbid obesity)? @ -None Was patient admitted / discharged? Hospital course, mention meds given and route, prescriptions, significant lab abnormalities, going to OR and other pertinent info. @ -Patient was given fluid in the emergency department but we did orthostatics again and she dropped while standing to 64 became diaphoretic and extremely lightheaded. At this point in time I felt it was best to keep the patient and take her off some high blood pressure medications and see if we can get her to be able to stand and walk around without being orthostatic. I spoke with patient [facility] hospitalist agreed to admit the patient. Undiagnosed new problem with uncertain prognosis? @ -No Drug Therapy requiring intensive monitoring for toxicity (Heparin, Nitro, Insulin, Cardizem)? @ -No Were any procedures done? @ -No Diagnosis/symptom? @ -Orthostatic hypotension Acute, or Chronic, or Acute on Chronic? @ -Acute Uncomplicated (without systemic symptoms) or Complicated (systemic symptoms)? @ -Complicated Side effects of treatment? @ -No Exacerbation, Progression, or Severe Exacerbation? @ -No Poses a threat to life or bodily function? How? (Chest pain, [place], [place], pneumonia, PE, COPD, DKA, ARF, appy, cholecystitis, CVA, Diverticulitis, Homicidal, Suicidal, threat to staff... and all critical care pts) @ -Does patient have a syncopal episode and cause further damage (Guillermo Santos) - Lab Data Lab Results 03/21/24 03/21/24 03/21/24 Range/Units 10:27 10:27 10:27 WBC 12.0 H (3.8-10.6) k/uL RBC 4.31 (3.80-5.40) m/uL Hgb 12.5 (11.4-16.0) gm/dL Hct 39.6 (34.0-46.0) % MCV 91.8 (80.0-100.0) fL MCH 29.1 (25.0-35.0) pg MCHC 31.7 (31.0-37.0) g/dL RDW 14.9 (11.5-15.5) % Plt Count 242 (150-450) k/uL MPV 8.8 Neutrophils % 81 % Lymphocytes % 10 % Monocytes % 6 % Eosinophils % 1 % Basophils % 0 % Neutrophils # 9.8 H (1.3-7.7) k/uL Lymphocytes # 1.2 (1.0-4.8) k/uL Monocytes # 0.8 (0-1.0) k/uL Eosinophils # 0.1 (0-0.7) k/uL Basophils # 0.1 (0-0.2) k/uL PT 37.9 H (10.0-12.5) sec INR 3.9 H (<1.2) APTT 30.4 H (22.0-30.0) sec Sodium 139 (137-145) mmol/L Potassium 4.4 (3.5-5.1) mmol/L Chloride 99 (98-107) mmol/L Carbon Dioxide 35 H (22-30) mmol/L Anion Gap 5 mmol/L BUN 41 H (7-17) mg/dL Creatinine 2.87 H (0.52-1.04) mg/dL Est GFR (CKD-EPI)AfAm 18 (>60 ml/min/1.73 sqM) Est GFR (CKD-EPI)NonAf 16 (>60 ml/min/1.73 sqM) Glucose 125 H (74-99) mg/dL Calcium 9.6 (8.4-10.2) mg/dL Magnesium 2.1 (1.6-2.3) mg/dL Total Bilirubin 1.0 (0.2-1.3) mg/dL AST 28 (14-36) U/L ALT 17 (4-34) U/L Alkaline Phosphatase 203 H (38-126) U/L Troponin I (0.000-0.034) ng/mL Total Protein 6.8 (6.3-8.2) g/dL Albumin 4.0 (3.5-5.0) g/dL 03/21/24 Range/Units 10:27 WBC (3.8-10.6) k/uL RBC (3.80-5.40) m/uL Hgb (11.4-16.0) gm/dL Hct (34.0-46.0) % MCV (80.0-100.0) fL MCH (25.0-35.0) pg MCHC (31.0-37.0) g/dL RDW (11.5-15.5) % Plt Count (150-450) k/uL MPV Neutrophils % % Lymphocytes % % Monocytes % % Eosinophils % % Basophils % % Neutrophils # (1.3-7.7) k/uL Lymphocytes # (1.0-4.8) k/uL Monocytes # (0-1.0) k/uL Eosinophils # (0-0.7) k/uL Basophils # (0-0.2) k/uL PT (10.0-12.5) sec INR (<1.2) APTT (22.0-30.0) sec Sodium (137-145) mmol/L Potassium (3.5-5.1) mmol/L Chloride (98-107) mmol/L Carbon Dioxide (22-30) mmol/L Anion Gap mmol/L BUN (7-17) mg/dL Creatinine (0.52-1.04) mg/dL Est GFR (CKD-EPI)AfAm (>60 ml/min/1.73 sqM) Est GFR (CKD-EPI)NonAf (>60 ml/min/1.73 sqM) Glucose (74-99) mg/dL Calcium (8.4-10.2) mg/dL Magnesium (1.6-2.3) mg/dL Total Bilirubin (0.2-1.3) mg/dL AST (14-36) U/L ALT (4-34) U/L Alkaline Phosphatase (38-126) U/L Troponin I <0.012 (0.000-0.034) ng/mL Total Protein (6.3-8.2) g/dL Albumin (3.5-5.0) g/dL Disposition <Annmarie Diaz - Last Filed: 03/21/24 10:10> Time of Disposition: 17:33 <Guillermo Santos - Last Filed: 03/21/24 17:33> Clinical Impression: Orthostatic hypotension Disposition: ADMITTED IP TO THIS HOSP Referrals: Lacey Arevalo DO [Primary Care Provider] - 1-2 days
[2024-03-21 10:47] LABS: Basophils # (A) 0.1 k/uL (0-0.2); Basophils % (A) 0 %; Eosinophils # (A) 0.1 k/uL (0-0.7); Eosinophils % (A) 1 %; HCT 39.6 % (34.0-46.0); HGB 12.5 gm/dL (11.4-16.0); Lymphocytes # (A) 1.2 k/uL (1.0-4.8); Lymphocytes % (A) 10 %; MCH 29.1 pg (25.0-35.0); MCHC 31.7 g/dL (31.0-37.0); MCV 91.8 fL (80.0-100.0); Mean Platelet Volume 8.8; Monocytes # (A) 0.8 k/uL (0-1.0); Monocytes % (A) 6 %; Neutrophils # (A) 9.8 k/uL (1.3-7.7); Neutrophils % (A) 81 %; Platelet Count 242 k/uL (150-450); RBC 4.31 m/uL (3.80-5.40); RDW 14.9 % (11.5-15.5)
[2024-03-21 11:11] LABS: INR 3.9 (<1.2); Partial Thromboplastin Time 30.4 sec (22.0-30.0); Prothrombin Time 37.9 sec (10.0-12.5)
[2024-03-21 11:12] LABS: ALT 17 U/L (4-34); AST 28 U/L (14-36); African American GFR (CKD) 18 (>60 ml/min/1.73 sqM); Alkaline Phosphatase 203 U/L (38-126); Anion Gap 5 mmol/L; Blood Urea Nitrogen 41 mg/dL (7-17); Calcium 9.6 mg/dL (8.4-10.2); Carbon Dioxide 35 mmol/L (22-30); Chloride 99 mmol/L (98-107); Glucose 125 mg/dL (74-99); Magnesium 2.1 mg/dL (1.6-2.3); Non-African American GFR(CKD) 16 (>60 ml/min/1.73 sqM); Potassium 4.4 mmol/L (3.5-5.1); Sodium 139 mmol/L (137-145); Total Protein 6.8 g/dL (6.3-8.2)
[2024-03-21] MEDS: SODIUM CHLORIDE 0.9% 500 ML 500 ML IV ONE (14:47)
--- NOTE | 2024-03-21 15:16 | XR ---
EXAMINATION TYPE: XR knee complete 3 views LT, XR ankle complete 3 views LT DATE OF EXAM: 03/21/2024 COMPARISON: None HISTORY: 68-year-old female with fall FINDINGS: Left knee: Degenerative spurring patellofemoral compartment with slight irregularity of the subchondral bone art icular surface. No significant joint effusion. Extensor mechanism appears intact. Slight irregularity at the neck of the fibula appears to be projectional as no fracture is confirmed on oblique or later al views. No acute fracture, subluxation, dislocation. Left ankle: Callus at the distal fibula relating to prior healed fracture deformity. There is mild generalized so ft tissue swelling. Bony irregularity at the dorsal talar head on the lateral view, age indeterminate , suspected chronic. Vascular calcifications suggest underlying diabetes and her chronic kidney disea se. Otherwise, ankle mortise remains congruent with preservation of the distal tibiofibular overlap. No acute fracture is seen. IMPRESSION: 1. Left knee: Moderate patellofemoral compartmental OA. No acute osseous abnormality seen. 2. Left ankle: Old fracture deformity distal fibula. Bony irregularity dorsal talar head is age-indet erminate but suspected chronic. Correlate for any point tenderness here to exclude the possibility of a capsular avulsion fracture. Some generalized soft tissue swelling. Otherwise, no definite acute fr acture seen.
[2024-03-21] MEDS: SODIUM CHLORIDE 0.9% 1,000 ML IV ONE (19:39)
[2024-03-21] MEDS: KETOROLAC 15 MG/ML 1 ML VIAL IVP STA (21:19)
[2024-03-21] MEDS: MAGNESIUM OXIDE 400 MG TAB PO SCH (21:19)
[2024-03-21] MEDS: ATORVASTATIN 40 MG TAB PO SCH (21:56)
[2024-03-22 06:16] LABS: Glucose,Whole Blood 162 mg/dL (70-110)
[2024-03-22 07:15] LABS: INR 3.9 (<1.2); Prothrombin Time 38.4 sec (10.0-12.5)
[2024-03-22] MEDS ORDERED: WARFARIN 2 MG TAB PO SCH (09:00)
[2024-03-22] MEDS ORDERED: ATORVASTATIN 40 MG TAB PO SCH (09:00)
[2024-03-22] MEDS ORDERED: DEXTROSE 50% SYRINGE 50 ML IVP PRN ×2 (09:54)
[2024-03-22] MEDS: Insulin Aspart (For Pump) 100 UNIT/ML VIAL SQ-PUMP SCH (10:18)
[2024-03-22 11:59] LABS: Basophils % (A) 0 %; Eosinophils # (A) 0.1 k/uL (0-0.7); Eosinophils % (A) 1 %; HCT 34.5 % (34.0-46.0); HGB 10.9 gm/dL (11.4-16.0); Lymphocytes # (A) 1.2 k/uL (1.0-4.8); Lymphocytes % (A) 15 %; MCH 29.7 pg (25.0-35.0); MCHC 31.6 g/dL (31.0-37.0); MCV 94.1 fL (80.0-100.0); Monocytes % (A) 12 %; Neutrophils # (A) 5.8 k/uL (1.3-7.7); Neutrophils % (A) 71 %; Platelet Count 192 k/uL (150-450); RBC 3.67 m/uL (3.80-5.40); RDW 14.9 % (11.5-15.5); WBC 8.2 k/uL (3.8-10.6)
[2024-03-22 12:02] LABS: Glucose,Whole Blood 213 mg/dL (70-110)
[2024-03-22 12:18] LABS: ALT 14 U/L (4-34); AST 23 U/L (14-36); African American GFR (CKD) 20 (>60 ml/min/1.73 sqM); Albumin 3.1 g/dL (3.5-5.0); Albumin/Globulin Ratio 1.2; Alkaline Phosphatase 160 U/L (38-126); Anion Gap 8 mmol/L; Blood Urea Nitrogen 37 mg/dL (7-17); Calcium 8.3 mg/dL (8.4-10.2); Carbon Dioxide 26 mmol/L (22-30); Chloride 104 mmol/L (98-107); Globulin 2.5 g/dL; Glucose 180 mg/dL (74-99); Non-African American GFR(CKD) 17 (>60 ml/min/1.73 sqM); Sodium 138 mmol/L (137-145); Total Bilirubin 1.2 mg/dL (0.2-1.3); Total Protein 5.6 g/dL (6.3-8.2)
--- NOTE | 2024-03-22 12:28 | P.HPIM ---
History of Present Illness 68-year-old female came with complaints of dizziness patient actually had a fall patient buckled and fell in the bathroom. Patient has positive orthostatic vitals with blood pressures going down as low as 60 systolic. Patient is on a mlodipine and Lasix at home patient does not have any history of congestive heart failure patient had normal echocardiogram in 2018. Patient does not have any atrial fibrillation patient EKG did not show any significant abnormality patient had any fever chills dysuria patient has mild leukocytosis on exam. Due to fall patient has possible capsular avulsion fracture of the left ankle. Patient patient is complaining of pain in the left knee and left ankle left knee x-ray did not show any significant abnormality except for osteoarthritis. Patient's creatinine is around 2.5 patient baseline is around that REVIEW OF SYSTEMS: CONSTITUTIONAL: No fever, no malaise, no fatigue. HEENT: No recent visual problems or hearing problems. Denied any sore throat. CARDIOVASCULAR: No chest pain, orthopnea, PND, no palpitations PULMONARY: No shortness of breath, no cough, no hemoptysis. GASTROINTESTINAL: No diarrhea, no nausea, no vomiting, no abdominal pain. NEUROLOGICAL: No headaches, no weakness, no numbness. HEMATOLOGICAL: Denies any bleeding or petechiae. GENITOURINARY: Denies any burning micturition, frequency, or urgency. MUSCULOSKELETAL/RHEUMATOLOGICAL: Denies any joint pain, swelling, or any muscle pain. ENDOCRINE: Denies any polyuria or polydipsia. The rest of the 14-point review of systems is negative. PHYSICAL EXAMINATION: GENERAL: The patient is alert and oriented x3, not in any acute distress. Well developed, well nourished. HEENT: Pupils are round and equally reacting to light. EOMI. No scleral icterus. No conjunctival pallor. Normocephalic, atraumatic. No pharyngeal erythema. No thyromegaly. CARDIOVASCULAR: S1 and S2 present. No murmurs, rubs, or gallops. PULMONARY: Chest is clear to auscultation, no wheezing or crackles. ABDOMEN: Soft, nontender, nondistended, normoactive bowel sounds. No palpable organomegaly. MUSCULOSKELETAL: No joint swelling or deformity. EXTREMITIES: No cyanosis, clubbing, or pedal edema. NEUROLOGICAL: Gross neurological examination did not reveal any focal deficits. SKIN: No rashes. Assessment and plan -Syncope probably secondary to low blood pressure, mild hypovolemia patient will be started and continued on IV fluids for now, hold off on Lasix and Norvasc. Will obtain echocardiogram previous echocardiogram from 2018 is within normal limits there is no systolic murmur in the aortic area. -Left ankle capsular avulsion possible fracture orthopedic surgery will be consulted -Generalized weakness physical therapy Occupational Therapy consultation -Coronary disease -History of DVT in the past presently not on any anticoagulation -Hyperlipidemia -Hypertension holding of antibodies medications because of above-mentioned reason DVT prophylaxis: Subcutaneous heparin Past Medical History Past Medical History: Coronary Artery Disease (CAD), Diabetes Mellitus, Deep Vein Thrombosis (DVT), Hyperlipidemia, Hypertension, Pulmonary Embolus (PE), Renal Disease Additional Past Medical History / Comment(s): Vitamin D Deficency, pt has i nsulin pump, elevated liver enzymes History of Any Multi-Drug Resistant Organisms: None Reported Past Surgical History: Appendectomy, Cholecystectomy Additional Past Surgical History / Comment(s): Breast Biopsy, Carapal tunnel to right hand, Heart Catherization, colonoscopy 08/2014 Past Anesthesia/Blood Transfusion Reactions: No Reported Reaction Past Psychological History: No Psychological Hx Reported Smoking Status: Never smoker Past Alcohol Use History: Occasional Past Drug Use History: None Reported - Past Family History Mother Family Medical History: No Reported History Additional Family Medical History / Comment(s): heart disease Father Additional Family Medical History / Comment(s): heart disease Medications and Allergies Home Medications Medication Instructions Recorded Confirmed Type allopurinoL [Zyloprim] 50 mg PO DAILY 11/16/18 03/21/24 History Insulin Aspart (For Pump) [NovoLOG 0.01 unit SQ-PUMP CONTINUOUS 08/24/19 03/21/24 History (For Pump)] Atorvastatin [Lipitor] 40 mg PO DAILY 03/21/24 03/21/24 History Cyclobenzaprine [Flexeril] 5 - 10 mg PO HS PRN 03/21/24 03/21/24 History Furosemide [Lasix] 20 mg PO AC-BRKFST 03/21/24 03/21/24 History Iron Polysaccharide Complex 150 mg PO MOWEFR 03/21/24 03/21/24 History [Ferrex 150] Magnesium Oxide 420mg 420 mg PO BID 03/21/24 03/21/24 History Warfarin [Coumadin] 6 mg PO DAILY 03/21/24 03/21/24 History amLODIPine [Norvasc] 2.5 mg PO DAILY 03/21/24 03/21/24 History calcitrioL 0.5 mcg PO MOWEFR 03/21/24 03/21/24 History Allergies Allergy/AdvReac Type Severity Reaction Status Date / Time azithromycin Allergy Unknown Rash/Hives Verified 03/21/24 15:42 amoxicillin Allergy Rash/Hives Verified 03/21/24 15:42 metronidazole [From Flagyl] Allergy Unknown Verified 03/21/24 15:42 Iodinated Contrast Media AdvReac has KIDNEY Verified 03/21/24 15:42 [Iodinated Contrast- Oral issues and IV Dye] Physical Exam Vitals: Vital Signs Temp Pulse Pulse Pulse Pulse Pulse Pulse 03/22/24 09:18 93 101 H 82 03/22/24 07:00 97.8 F 85 03/22/24 00:14 98.6 F 03/21/24 23:36 79 03/21/24 20:22 84 03/21/24 15:40 82 70 Pulse Resp BP BP BP BP Pulse Ox 03/22/24 09:18 171/77 118/76 156/67 03/22/24 07:00 17 137/61 96 03/22/24 00:14 75 15 146/78 94 L 03/21/24 23:36 18 134/51 93 L 03/21/24 20:22 18 159/67 93 L 03/21/24 15:40 77 150/76 65/47 154/79 Intake and Output 03/21/24 03/22/24 03/22/24 22:59 06:59 14:59 Intake Total 20 Balance 20 Intake: IV 20 Invasive Line 1 20 Other: # Voids 1 Weight 96.162 kg Results CBC & Chem 7: 03/22/24 06:39 03/22/24 06:39 Labs: Abnormal Lab Results - Last 24 Hours (Table) 03/22/24 03/22/24 03/22/24 Range/Units 06:15 06:39 06:39 RBC 3.67 L (3.80-5.40) m/uL Hgb 10.9 L (11.4-16.0) gm/dL PT 38.4 H (10.0-12.5) sec INR 3.9 H (<1.2) BUN (7-17) mg/dL Creatinine (0.52-1.04) mg/dL Glucose (74-99) mg/dL POC Glucose (mg/dL) 162 H (70-110) mg/dL Calcium (8.4-10.2) mg/dL Alkaline Phosphatase (38-126) U/L Total Protein (6.3-8.2) g/dL Albumin (3.5-5.0) g/dL 03/22/24 03/22/24 Range/Units 06:39 12:01 RBC (3.80-5.40) m/uL Hgb (11.4-16.0) gm/dL PT (10.0-12.5) sec INR (<1.2) BUN 37 H (7-17) mg/dL Creatinine 2.72 H (0.52-1.04) mg/dL Glucose 180 H (74-99) mg/dL POC Glucose (mg/dL) 213 H (70-110) mg/dL Calcium 8.3 L (8.4-10.2) mg/dL Alkaline Phosphatase 160 H (38-126) U/L Total Protein 5.6 L (6.3-8.2) g/dL Albumin 3.1 L (3.5-5.0) g/dL Thrombosis Risk Factor Assmnt - Choose All That Apply Each Factor Represents 1 point: Obesity (BMI >25) Each Risk Factor Represents 2 Points: Age 61-74 years Each Risk Factor Represents 3 Points: History of DVT/PE Other congenital or acquired thrombophilia - If yes, enter type in comment: No Thrombosis Risk Factor Assessment Total Risk Factor Score: 6 Thrombosis Risk Factor Assessment Level: High Risk
[2024-03-22 12:59] LABS: Appearance,Urine Clear (Clear); Bilirubin,Urine Negative (Negative); Blood,Urine Trace (Negative); Color,Urine Colorless; Glucose,Urine (UA) Trace (Negative); Ketones,Urine Trace (Negative); Leukocyte Esterase,Urine Negative (Negative); Mucus,Urine Rare /hpf; Nitrite,Urine Negative (Negative); PH, Urine 5.5 (5.0-8.0); Protein,Urine Trace (Negative); RBC,Urine 1 /hpf (0-5); Specific Gravity,Urine 1.012 (1.001-1.035); Squamous Epithelial Cell,Urine 2 /hpf (0-4); Urobilinogen,Urine <2.0 mg/dL (<2.0); WBC,Urine <1 /hpf (0-5)
[2024-03-22 13:23] LABS: Glucose,Whole Blood 271 mg/dL (70-110)
[2024-03-22] MEDS: allopurinoL 100 MG TAB PO SCH (13:26)
[2024-03-22] MEDS: IRON POLYSACCHARIDES COMPLEX 150 MG CAP PO SCH (13:26)
[2024-03-22] MEDS: INSULIN ASPART (NovoLOG) 100 UNIT/ML VIAL SQ SCH (13:27)
[2024-03-22] MEDS: NYSTATIN 100,000 UNIT/GM POWD 15 GM TOPICAL SCH (13:27)
[2024-03-22] MEDS: SODIUM CHLORIDE 0.9% 1,000 ML IV SCH (13:27)
--- NOTE | 2024-03-22 16:01 | P.CNOR ---
History of Present Illness - [facility] Consult date: 03/22/24 Requesting physician: Antwon Headley Consult reason: other (left ankle pain/xray results) History of present illness: Patient is a 68-year-old female who presents to the emergency department yesterday at [facility] after falling at home. Patient states she almost passed out and says that since the fall she has had some pain to the left knee as well as the left ankle. Patient denies hitting her head or neck. Patient states after she got up she did have another episode when she walked out of the bathroom. Patient says she never completely passed out. Orthopedics consulted due to left ankle x-ray results. Patient states normally she does follow with [facility] and has been following in regards to her right hip right knee and right ankle and has been in outpatient therapy for this. While resting in bed, patient says the pain is tolerable. She says she is not having any left knee pain at this time. The pain is mostly localized to the outside part of the left ankle she states. Patient denies any significant previous orthopedic surgeries. patient denies any chest pain, fever, shortness of breath, nausea, vomiting, change in vision, loss of bowel/bladder control. Past Medical History Past Medical History: Coronary Artery Disease (CAD), Diabetes Mellitus, Deep Vein Thrombosis (DVT), Hyperlipidemia, Hypertension, Pulmonary Embolus (PE), Renal Disease Additional Past Medical History / Comment(s): Vitamin D Deficency, pt has insulin pump, elevated liver enzymes History of Any Multi-Drug Resistant Organisms: None Reported Past Surgical History: Appendectomy, Cholecystectomy Additional Past Surgical History / Comment(s): Breast Biopsy, Carapal tunnel to right hand, Heart Catherization, colonoscopy 08/2014 Past Anesthesia/Blood Transfusion Reactions: No Reported Reaction Past Psychological History: No Psychological Hx Reported Smoking Status: Never smoker Past Alcohol Use History: Occasional Past Drug Use History: None Reported - Past Family History Mother Family Medical History: No Reported History Additional Family Medical History / Comment(s): heart disease Father Additional Family Medical History / Comment(s): heart disease Medications and Allergies Home Medications Medication Instructions Recorded Confirmed Type allopurinoL [Zyloprim] 50 mg PO DAILY 11/16/18 03/21/24 History Insulin Aspart (For Pump) [NovoLOG 0.01 unit SQ-PUMP CONTINUOUS 08/24/19 03/21/24 History (For Pump)] Atorvastatin [Lipitor] 40 mg PO DAILY 03/21/24 03/21/24 History Cyclobenzaprine [Flexeril] 5 - 10 mg PO HS PRN 03/21/24 03/21/24 History Furosemide [Lasix] 20 mg PO AC-BRKFST 03/21/24 03/21/24 History Iron Polysaccharide Complex 150 mg PO MOWEFR 03/21/24 03/21/24 History [Ferrex 150] Magnesium Oxide 420mg 420 mg PO BID 03/21/24 03/21/24 History Warfarin [Coumadin] 6 mg PO DAILY 03/21/24 03/21/24 History amLODIPine [Norvasc] 2.5 mg PO DAILY 03/21/24 03/21/24 History calcitrioL 0.5 mcg PO MOWEFR 03/21/24 03/21/24 History Allergies Allergy/AdvReac Type Severity Reaction Status Date / Time azithromycin Allergy Unknown Rash/Hives Verified 03/21/24 15:42 amoxicillin Allergy Rash/Hives Verified 03/21/24 15:42 metronidazole [From Flagyl] Allergy Unknown Verified 03/21/24 15:42 Iodinated Contrast Media AdvReac has KIDNEY Verified 03/21/24 15:42 [Iodinated Contrast- Oral issues and IV Dye] Physical Examination Negative for any open fractures, significant erythema/ecchymosis/open wounds. Positive for some swelling to the left ankle and left knee on exam. Sensation is equal, symmetric, bilateral intact throughout the upper and lower extremities. Patient does have full range of motion throughout bilateral upper extremities on exam. Patient does have some limited range of motion in the bilateral ankles and knees on exam secondary to stiffness and pain. 4/5 in all major motor groups in bilateral upper and lower extremities. Neurovascular status intact. Radial pulses intact, 2+ bilaterally. Cap refill under 3 seconds in digits of upper extremities. Negative Homans bilaterally. Results - Labs Labs: Abnormal Lab Results - Last 24 Hours (Table) 03/22/24 03/22/24 03/22/24 Range/Units 06:15 06:39 06:39 RBC 3.67 L (3.80-5.40) m/uL Hgb 10.9 L (11.4-16.0) gm/dL PT 38.4 H (10.0-12.5) sec INR 3.9 H (<1.2) BUN (7-17) mg/dL Creatinine (0.52-1.04) mg/dL Glucose (74-99) mg/dL POC Glucose (mg/dL) 162 H (70-110) mg/dL Calcium (8.4-10.2) mg/dL Alkaline Phosphatase (38-126) U/L Total Protein (6.3-8.2) g/dL Albumin (3.5-5.0) g/dL Urine Protein (Negative) Urine Glucose (UA) (Negative) Urine Ketones (Negative) Urine Blood (Negative) Urine Mucus (None) /hpf 03/22/24 03/22/24 03/22/24 Range/Units 06:39 12:01 12:54 RBC (3.80-5.40) m/uL Hgb (11.4-16.0) gm/dL PT (10.0-12.5) sec INR (<1.2) BUN 37 H (7-17) mg/dL Creatinine 2.72 H (0.52-1.04) mg/dL Glucose 180 H (74-99) mg/dL POC Glucose (mg/dL) 213 H (70-110) mg/dL Calcium 8.3 L (8.4-10.2) mg/dL Alkaline Phosphatase 160 H (38-126) U/L Total Protein 5.6 L (6.3-8.2) g/dL Albumin 3.1 L (3.5-5.0) g/dL Urine Protein Trace H (Negative) Urine Glucose (UA) Trace H (Negative) Urine Ketones Trace H (Negative) Urine Blood Trace H (Negative) Urine Mucus Rare H (None) /hpf H & H 03/21/24 03/22/24 Range/Units 10:27 06:39 Hgb 12.5 10.9 L (11.4-16.0) gm/dL Hct 39.6 34.5 (34.0-46.0) % Coagulation 03/21/24 03/22/24 Range/Units 10:27 06:39 INR 3.9 H 3.9 H (<1.2) Result Diagrams: 03/22/24 06:39 04/24/24 06:39 - Diagnostic results Knee x-ray: report reviewed, image reviewed (X-ray of the left knee does reveal medial compartment osteoarthritis which appears to be mild as well as some patellofemoral arthritis. Negative for any significant effusions or dislocations.) Ankle/Foot x-ray: report reviewed, image reviewed (X-ray of the left ankle does reveal left distal fibula fracture which does appear to be old. Bone appears to be well-healed in this area.) Assessment and Plan Assessment: 1. Left knee pain; left ankle pain; chronic fracture deformity of the left lateral malleolus, stable Plan: 1. Left knee pain; left ankle pain; chronic fracture deformity of the left lateral malleolus, stable -x-ray of the left ankle does reveal fracture de formity of the distal fibula which is stable in nature. Talar dome does appear to be intact. negative for any new fractures. X-ray of the left knee does demonstrate some mild medial compartment osteoarthritis as well as some moderate patellofemoral arthritis. Negative for any significant effusions or dislocations. I did discuss the findings of the imaging and exam with my attending, Dr. Fair. At this time we are recommending conservative measures with the use of pain medication and ice to help with swelling. Patient may weight-bear as tolerated and perform gentle range of motion exercises of the left ankle and left knee. We do recommend patient to continue following in the outpatient setting as needed. Patient is stable from an orthopedic standpoint for discharge. At this time orthopedics is signing off. Please do not hesitate to contact us for any further questions. 2. Appreciate medical management 3. Pain management - tylenol 4. GI prophylaxis recs per medicine 5. DVT prophylaxis recs per medicine 6. PT/OT -weightbearing as tolerated with walker as needed 7. Encourage incentive spirometer use 8. Appreciate consult Time with Patient: Less than 30
[2024-03-22 16:58] LABS: Glucose,Whole Blood 260 mg/dL (70-110)
[2024-03-22] MEDS: WARFARIN 0.5 MG TAB PO ONE (18:20)
[2024-03-22 20:28] LABS: Glucose,Whole Blood 316 mg/dL (70-110)
[2024-03-22] MEDS: INSULIN DETEMIR (LEVEMIR) 100 UNIT/ML SYR SQ SCH (20:51)
[2024-03-23 06:09] LABS: Glucose,Whole Blood 92 mg/dL (70-110)
[2024-03-23 06:45] LABS: INR 3.8 (<1.2); Prothrombin Time 37.4 sec (10.0-12.5)
[2024-03-23 08:41] VITALS: RESP 19; TEMP 98
[2024-03-23 12:14] LABS: Glucose,Whole Blood 119 mg/dL (70-110)
[2024-03-23 12:29] VITALS: BP 152/72; PULSE 83
--- NOTE | 2024-03-23 17:04 | CA ---
Transthoracic Echo Report Name: Yumiko Santizo Age: 68 Gender: F : 1955 Exam Date: 03/22/2024 14:33 Exam Location: [facility] Ht (in): 66 Wt (lb): 212 Ordering Physician: Antwon Headley MD Attending/Referring Phys: Private Advisor Sulma Arzola RDCS Procedure CPT: Indications: Syncope Cardiac Hx: Technical Quality: Fair Contrast 1: Total Dose (mL): Contrast 2: Total Dose (mL): MEASUREMENTS (Male / Female) Normal Values 2D ECHO LV Diastolic Diameter PLAX 3.8 cm 4.2 - 5.9 / 3.9 - 5.3 cm LV Systolic Diameter PLAX 2.3 cm IVS Diastolic Thickness 1.5 cm 0.6 - 1.0 / 0.6 - 0.9 cm LVPW Diastolic Thickness 1.3 cm 0.6 - 1.0 / 0.6 - 0.9 cm LV Relative Wall Thickness 0.7 RV Internal Dim ED PLAX 3.0 cm LA Volume 69.0 cm??? 18 - 58 / 22 - 52 cm??? LA Volume Index 32.0 cm???/m??? 16 - 28 cm???/m??? M-MODE Aortic Root Diameter MM 3.3 cm LA Systolic Diameter MM 3.9 cm LA Ao Ratio MM 1.2 AV Cusp Separation MM 2.2 cm DOPPLER AV Peak Velocity 191.8 cm/s AV Peak Gradient 14.7 mmHg AV Mean Velocity 136.7 cm/s AV Mean Gradient 8.4 mmHg AV Velocity Time Integral 42.1 cm LVOT Peak Velocity 163.3 cm/s LVOT Peak Gradient 10.7 mmHg LVOT Velocity Time Integral 36.9 cm MV Area PHT 2.8 cm??? Mitral E Point Velocity 105.5 cm/s Mitral A Point Velocity 120.0 cm/s Mitral E to A Ratio 0.9 MV Deceleration Time 274.7 ms MV E' Velocity 5.4 cm/s Mitral E to MV E' Ratio 19.6 TR Peak Velocity 179.1 cm/s TR Peak Gradient 12.8 mmHg Right Ventricular Systolic Press 17.8 mmHg FINDINGS Left Ventricle Moderately increased left ventricular wall thickness. Left ventricular cavity size normal. Normal left ventricular systolic function with no obvious regional wall motion abnormalities. Left ventricular ejection fraction is estimated at 55-60 %. Grade 1 diastolic dysfunction. Right Ventricle Normal right ventricular size and function. Right ventricular systolic pressure within normal limits. Right Atrium Normal right atrial size. Left Atrium Mildly increased left atrial volume. Mildly increased left atrial area. Mitral Valve Structurally normal mitral valve. Mild mitral annular calcification. Mild mitral regurgitation. Aortic Valve Trileaflet aortic valve. No aortic valve stenosis or regurgitation. Aortic valve sclerosis. Tricuspid Valve Structurally normal tricuspid valve. Mild tricuspid regurgitation. Pulmonic Valve Structurally normal pulmonic valve. Pericardium No pericardial effusion. Aorta Normal size aortic root and proximal ascending aorta. CONCLUSIONS Normal LV size and systolic function Previewed by: Dr. Terry Schuster MD (Electronically Signed) Final Date: 23 March 2024 17:03
[2024-03-23] MEDS ORDERED: WARFARIN 0.5 MG TAB PO ONE (18:00)
--- NOTE | 2024-03-25 23:25 | P.DS ---
Providers Date of admission: 03/21/24 17:34 Attending physician: Clifford Alvarez Consults: 03/22/24 12:27 Consult Physician Routine Consulting Provider: Shayne Fair Consult Reason/Comments: left ankle pain/xray results Do you want consulting provider notified?: Yes Primary care physician: Lacey Arevalo Hospital Course: Final Diagnosis -Syncope probably secondary to low blood pressure, mild hypovolemia patient will be started and continued on IV fluids for now, hold off on Lasix and Norvasc. Will obtain echocardiogram -Left ankle capsular avulsion possible fracture orthopedic surgery will be consulted -Generalized weakness physical therapy Occupational Therapy consultation -Coronary disease -History of DVT/PE anticoagulated with warfarin -Hyperlipidemia Discharge Disposition Patient is stable for discharge home. Recommending to discontinue norvasc at this time. Warfarin has been decreased to 4 mg daily. Patient is instructed to check INR on Wednesday if less than 3 can begin warfarin at 4 mg dose daily. Patient to follow up with PCP Dr. Lacey Arevalo in 1 to 2 days. Patient to also follow up with Dr. Stahl in 1 week. Continue with outpatient physical therapy. Repeat BMP in 2 to 3 days. Hospital Course 68-year-old female came with complaints of dizziness patient actually had a fall patient buckled and fell in the bathroom. Patient has positive orthostatic vitals with blood pressures going down as low as 60 systolic. Patient is on amlodipine and Lasix at home patient does not have any history of congestive heart failure patient had normal echocardiogram in 2018. Patient does not have any atrial fibrillation patient EKG did not show any significant abnormality patient had any fever chills dysuria patient has mild leukocytosis on exam. Due to fall patient has possible capsular avulsion fracture of the left ankle. Patient patient is complaining of pain in the left knee and left ankle left knee x-ray did not show any significant abnormality except for osteoarthritis. Kyle addison's creatinine is around 2.5 patient baseline is around that. Patient was admitted to the hospital under medicine with cardiology consultation. Orthopedics was also consulted and recommending conservative management and to continue with outpatient physical therapy. Patient states normally she does follow with [facility] and has been following in regards to her right hip right knee and right ankle and has been in outpatient therapy for this. While resting in bed, patient says the pain is tolerable. She says she is not having any left knee pain at this time. Echocardiogram was taken and reports show normal LV size and systolic function. Blood pressure improved and patient has been up ambulating with physical therapy and has no further reports of dizziness or lightheadedness. Please see medication reconciliation for a list of current medications. Thank you for allowing us to participate in the care of this patient. The impression and plan of care has been dictated by Rachel Smith, Nurse Practitioner as directed. Dr. Kayode MD I have performed a history and physical examination and medical decision making of this patient, discussed the same with the dictator, and agree with the dictators assessment and plan as written, documented as a scribe. Based on total visit time, I have performed more than 50% of this visit. Patient Condition at Discharge: Fair Plan - Discharge Summary Discharge Rx Participant: No New Discharge Prescriptions: New Nystatin 100,000 Unit/gm Powd [Mycostatin Powder] 1 applic TOPICAL BID #1 each Continue allopurinoL [Zyloprim] 50 mg PO DAILY Insulin Aspart (For Pump) [NovoLOG (For Pump)] 0.01 unit SQ-PUMP CONTINUOUS Magnesium Oxide 420mg 420 mg PO BID Atorvastatin [Lipitor] 40 mg PO DAILY calcitrioL 0.5 mcg PO MOWEFR Furosemide [Lasix] 20 mg PO AC-BRKFST Iron Polysaccharide Complex [Ferrex 150] 150 mg PO MOWEFR Cyclobenzaprine [Flexeril] 5 - 10 mg PO HS PRN PRN Reason: muscle spasms/tension Changed Warfarin [Coumadin] 4 mg PO DAILY #0 Discontinued amLODIPine [Norvasc] 2.5 mg PO DAILY Discharge Medication List allopurinoL [Zyloprim] 50 mg PO DAILY 11/16/18 [History] Insulin Aspart (For Pump) [NovoLOG (For Pump)] 0.01 unit SQ-PUMP CONTINUOUS 08/24/19 [History] Atorvastatin [Lipitor] 40 mg PO DAILY 03/21/24 [History] Cyclobenzaprine [Flexeril] 5 - 10 mg PO HS PRN 03/21/24 [History] Furosemide [Lasix] 20 mg PO AC-BRKFST 03/21/24 [History] Iron Polysaccharide Complex [Ferrex 150] 150 mg PO MOWEFR 03/21/24 [History] Magnesium Oxide 420mg 420 mg PO BID 03/21/24 [History] calcitrioL 0.5 mcg PO MOWEFR 03/21/24 [History] Nystatin 100,000 Unit/gm Powd [Mycostatin Powder] 1 applic TOPICAL BID #1 each 03/23/24 [Rx] Warfarin [Coumadin] 4 mg PO DAILY #0 03/23/24 [Rx] Follow up Appointment(s)/Referral(s): Shani Santizo PAC [PHYSICIAN TILE DITCHER] - 1 Week Betty Stahl MD [STAFF PHYSICIAN] - 1 Week Lacey Arevalo DO [Primary Care Provider] - 1-2 days Ambulatory/Diagnostic Orders: Basic Metabolic Panel [LAB.AMB] Time Frame: 3 Days, Location: None Selected Prothrombin Time INR [LAB.AMB] Location: None Selected Patient Instructions/Handouts: Syncope (DC), Hypotension (DC) Activity/Diet/Wound Care/Special Instructions: Check INR on wednesday if less than 3 can begin warfarin at 4 mg dose daily. Discharge Disposition: HOME SELF-CARE
== END 2024-03-23 14:31 | disposition home or self-care (01) ==
LOC: EC 09:02 → 6NMEDSUR 17:34
PROVIDERS: ADMIT Hospitalist; ATTEND Hospitalist
DX: I95.1 Orthostatic hypotension (principal); E86.1 Hypovolemia; M17.12 Unilateral primary osteoarthritis, left knee; M21.962 Unspecified acquired deformity of left lower leg; D72.829 Elevated white blood cell count, unspecified; E78.5 Hyperlipidemia, unspecified; I10 Essential (primary) hypertension; E66.9 Obesity, unspecified; Z68.34 Body mass index [BMI] 34.0-34.9, adult; W19.XXXA Unspecified fall, initial encounter; Y92.002 Bathroom of unspecified non-institutional (private) residence as the place of occurrence of the external cause; Z79.4 Long term (current) use of insulin; Z79.899 Other long term (current) drug therapy; Z79.01 Long term (current) use of anticoagulants; Z88.0 Allergy status to penicillin; Z88.1 Allergy status to other antibiotic agents; Z88.3 Allergy status to other anti-infective agents; Z91.041 Radiographic dye allergy status; Z96.41 Presence of insulin pump (external) (internal); Z86.718 Personal history of other venous thrombosis and embolism; Z86.711 Personal history of pulmonary embolism
CPT/HCPCS: 96361 ×2; 96374; 99285; 36415; 94760 ×2; 93005; 93306; 97162; 80053 ×2; 83735 ×2; 84484; 85025 ×2; 85610 ×3; 85730; 81001; 83036; 73562; 73610; 71046; G0378 ×3; J1885

== ENCOUNTER 2024-06-07 18:04 | Emergency (ER) | payer MEDICARE, BC ==
--- NOTE | 2024-06-07 18:37 | ED ---
Recheck HPI - General Source: patient, family, RN notes reviewed Mode of arrival: ambulatory Limitations: no limitations <Shazia Meade - Last Filed: 06/07/24 18:36> - History of Present Illness MD Complaint: abnormal lab (Elevated blood sugar) -: unknown Returns Today for: Called Because of Abnormal Lab/Test Symptoms Since Prior Visit: no new symptoms Context: called for abnormal lab result Associated Symptoms: none <Guillermo Mayers - Last Filed: 06/07/24 23:20> <Remedios Trivedi - Last Filed: 06/08/24 10:14> - General Chief Complaint: Recheck/Abnormal Lab/Rx Stated Complaint: High blood sugar, sent by PCP Time Seen by Provider: 06/07/24 18:36 - History of Present Illness Initial Comments: Note: 69-year-old female presented to ER with chief complaint of hyperglycemia. Patient had a CT and lab work done and had to take her pump off for the CT scan. Since removing the insulin pump she has been maintaining sugars over 400. Patient denies any acute complaints. (Shazia Meade) This is a 69-year-old female to the ER for evaluation of uncontrolled blood sugar (Guillermo Mayers) Patient is a 69-year-old female past medical history of type 1 diabetes with insulin pump in place presenting today for hyperglycemia. Patient states she had a CT done earlier today for which her insulin pump needed to be disconnected. Afterwards, that patient reconnected her pump without difficulty and she and her friend went to lunch. At lunch patient had potato soup, shrimp scampi and breadsticks. Ever since lunch patient's blood glucose pump has been reading in the high 300s however when she manually checks her blood sugar her blood glucoses in the 400s. Patient went to see her primary care provider who sent the patient to the emergency department for further assessment. Patient's friend at bedside states patient is currently at her baseline however when seen by her PCP did seem somewhat confused- the patient told her PCP that she was seen at the motor equipment commanding officer earlier today when in fact she had been at the hospital getting a CT scan. Patient denies headaches, changes in vision, nausea, vomiting, fevers, chills, shortness of breath, cough, abdominal pain, urinary frequency. Patient is AO x 4 currently. (Remedios Trivedi) - Related Data Home Medications Medication Instructions Recorded Confirmed allopurinoL [Zyloprim] 50 mg PO DAILY 11/16/18 03/21/24 Insulin Aspart (For Pump) [NovoLOG 0.01 unit SQ-PUMP CONTINUOUS 08/24/19 03/21/24 (For Pump)] Atorvastatin [Lipitor] 40 mg PO DAILY 03/21/24 03/21/24 Cyclobenzaprine [Flexeril] 5 - 10 mg PO HS PRN 03/21/24 03/21/24 Furosemide [Lasix] 20 mg PO AC-BRKFST 03/21/24 03/21/24 Iron Polysaccharide Complex 150 mg PO MOWEFR 03/21/24 03/21/24 [Ferrex 150] Magnesium Oxide 420mg 420 mg PO BID 03/21/24 03/21/24 calcitrioL 0.5 mcg PO MOWEFR 03/21/24 03/21/24 Previous Rx's Medication Instructions Recorded Nystatin 100,000 Unit/gm Powd 1 applic TOPICAL BID #1 each 03/23/24 [Mycostatin Powder] Warfarin [Coumadin] 4 mg PO DAILY #0 03/23/24 Allergies Allergy/AdvReac Type Severity Reaction Status Date / Time azithromycin Allergy Unknown Rash/Hives Verified 06/07/24 18:13 amoxicillin Allergy Rash/Hives Verified 06/07/24 18:13 metronidazole [From Flagyl] Allergy Unknown Verified 06/07/24 18:13 Iodinated Contrast Media AdvReac has KIDNEY Verified 06/07/24 18:13 [Iodinated Contrast- Oral issues and IV Dye] Review of Systems ROS Other: All systems not noted in ROS Statement are negative. <Shazia Meade - Last Filed: 06/07/24 18:36> ROS Other: All systems not noted in ROS Statement are negative. <Guillermo Mayers - Last Filed: 06/07/24 23:20> ROS Other: All systems not noted in ROS Statement are negative. <Remedios Trivedi - Last Filed: 06/08/24 10:14> ROS Statement: Those systems with pertinent positive or pertinent negative responses have been documented in the HPI. Past Medical History Past Medical History: Coronary Artery Disease (CAD), Diabetes Mellitus, Deep Vein Thrombosis (DVT), Hyperlipidemia, Hypertension, Pulmonary Embolus (PE), Renal Disease Additional Past Medical History / Comment(s): Vitamin D Deficency, pt has insulin pump, elevated liver enzymes History of Any Multi-Drug Resistant Organisms: None Reported Past Surgical History: Appendectomy, Cholecystectomy Additional Past Surgical History / Comment(s): Breast Biopsy, Carapal tunnel to right hand, Heart Catherization, colonoscopy 08/2014 Past Anesthesia/Blood Transfusion Reactions: No Reported Reaction Past Psychological History: No Psychological Hx Reported Smoking Status: Never smoker Past Alcohol Use History: Occasional Past Drug Use History: None Reported - Past Family History Mother Family Medical History: No Reported History Additional Family Medical History / Comment(s): heart disease Father Additional Family Medical History / Comment(s): heart disease <Shazia Meade - Last Filed: 06/07/24 18:36> General Exam Limitations: no limitations <Shazia Meade - Last Filed: 06/07/24 18:36> General appearance: alert, in no apparent distress Head exam: Present: atraumatic, normocephalic, normal inspection Eye exam: Present: normal appearance, PERRL, EOMI. Absent: scleral icterus, conjunctival injection, periorbital swelling ENT exam: Present: normal exam, mucous membranes moist Neck exam: Present: normal inspection. Absent: tenderness, meningismus, lymphadenopathy Respiratory exam: Present: normal lung sounds bilaterally. Absent: respiratory distress, wheezes, rales, rhonchi, stridor Cardiovascular Exam: Present: regular rate, normal rhythm, normal heart sounds. Absent: systolic murmur, diastolic murmur, rubs, gallop, clicks GI/Abdominal exam: Present: soft, normal bowel sounds. Absent: distended, te nderness, guarding, rebound, rigid Extremities exam: Present: normal inspection, full ROM, normal capillary refill. Absent: tenderness, pedal edema, joint swelling, calf tenderness Back exam: Present: normal inspection Neurological exam: Present: alert, oriented X3, CN II-XII intact Psychiatric exam: Present: normal affect, normal mood Skin exam: Present: warm, dry, intact, normal color. Absent: rash <Guillermo Mayers - Last Filed: 06/07/24 23:20> <Remedios Trivedi - Last Filed: 06/08/24 10:14> - General Exam Comments Initial Comments: Visual Physical Exam Vital signs reviewed General: Well-appearing, nontoxic, no acute distress. Head: Normocephalic, atraumatic Eyes: PERRLA, EOMI ENT: Airway patent Chest: Nonlabored breathing Skin: No visual rash, normal skin tone Neuro: Alert and oriented 3 Musculoskeletal: No gross abnormalities (Shazia Meade) PE: CONSTITUTIONAL: no apparent distress, well appearing SKIN: warm, dry, no jaundice, hives or petechiae EYES: pupils are equally round, extraocular movements intact without nystagmus, clear conjunctiva, non-icteric sclera HENT: normocephalic, atraumatic, moist mucus membranes, oropharynx clear NECK: Normal appearance, full range of motion PULMONARY: Scant wheezes in right lower lung field, No rhonchi, or rales, normal excursion, no accessory muscle use and no stridor CARDIOVASCULAR: regular rate, rhythm, normal S1 and S2. No appreciated murmurs. Strong radial pulses with intact distal perfusion GASTROINTESTINAL: soft, non-tender, non-distended, no palpable masses, no rebound or guarding LYMPHATICS: no edema in lower extremities MUSCULOSKELETAL: Extremities have no gross deformity, no edema, redness, or swelling NEUROLOGIC: _a/o x 3, GCS 15, normal mentation and speech. Moves all extremities x 4 without motor or sensory deficit PSYCHIATRIC: _normal mood and affect, thought process is clear and linear (Remedios Trivedi) Course <Guillermo Mayers - Last Filed: 06/07/24 23:20> <Remedios Trivedi - Last Filed: 06/08/24 10:14> Vital Signs 06/07/24 06/07/24 18:11 23:59 Temperature 97.9 F 98.7 F Pulse Rate 98 72 Respiratory 18 20 Rate Blood Pressure 165/71 154/74 O2 Sat by Pulse 94 L 96 Oximetry - Reevaluation(s) Reevaluation #1: 06/07/24 23:25 Medical records reviewed (Guillermo Mayers) Creatinine appears at baseline, 3.0 earlier today was 2.72, on 05/04/2024 was 3 blood glucose 544, sodium slightly low at 135, patient has received normal saline boluses, LFTs within normal limits, alk phos elevated at 155 though again appears to be near baseline 06/07/24 20:51 (Remedios Trivedi) Reevaluation #2: 06/07/24 23:25 Patient continues to feel well here in the emergency department, patient would like discharged home (Guillermo Mayers) 06/07/24 21:[address], I see no evidence of acute intracranial abnormality, no evidence of hemorrhage, mass. On reassessment patient continues to be well- appearing, is tolerating p.o. water. Her insulin pump is reading a blood glucose of 294. She is about nursing home through her IV fluid boluses. Discussed with RN plan for repeat [id number] glucose. I suspect that now that patient's blood glucose is trending down and less than 400 her insulin pump will begin to correlate with her manual monitor. Currently pending acetone, ammonia urinalysis however patient's labs so far do not indicate DKA and anticipate discharge (Remedios Trivedi) Medical Decision Making <Shazia Meade - Last Filed: 06/07/24 18:36> - Lab Data Result diagrams: 06/07/24 19:24 06/07/24 19:24 - Radiology Data Radiology results: report reviewed (CT brain is negative for acute disease), image reviewed <Guillermo Mayers - Last Filed: 06/07/24 23:20> - Lab Data Result diagrams: 06/07/24 19:24 06/07/24 19:24 <Remedios Trivedi - Last Filed: 06/08/24 10:14> - Medical Decision Making I performed the quick note portion of this chart. Electronically signed by [place] PA-C (Shazia Meade) 69 female with uncontrolled hyperglycemia. Patient at this time feels well can be discharged home (Guillermo Mayers) Was pt. sent in by a medical professional or institution (CORRY Drummond, FLIGHT OPERATIONS MANAGER, urgent care, hospital, or intermediate...) When possible be specific @ -Patient was sent by her PCP Did you speak to anyone other than the patient for history (EMS, parent, family, police, friend...)? What history was obtained from this source @ -Spoke to patient's friend at bedside Did you review nursing and triage notes (agree or disagree)? Why? @ -I reviewed and agree with nursing and triage notes Were old charts reviewed (outside hosp., previous admission, EMS record, old EKG, old radiological studies, urgent care reports/EKG's, intermediate records)? Report findings @ -Reviewed discharge summary from patient presented for syncopal left ankle fracture Differential Diagnosis (chest pain, altered mental status, abdominal pain women, abdominal pain men, vaginal bleeding, weakness, fever, dyspnea, syncope, headache, dizziness, GI bleed, back pain, seizure, CVA, palpatations, mental health, musculoskeletal)? @ -Differential Altered Mental Status: Hypoglycemia, DKA, electrolyte or metabolic disorder, thyroid abnormality, infection, hepatic encephalopathy, this is not meant to be an all-inclusive list EKG interpreted by me (3pts min.). @ -Pending at time of sign out X-rays interpreted by me (1pt min.). @ -None done CT interpreted by me (1pt min.). @ -Reviewed CT brain, I see no evidence of acute intracranial abnormality, no hemorrhage or mass, read pending at time of sign out U/S interpreted by me (1pt. min.). @ -None done What testing was considered but not performed or refused? (CT, X-rays, U/S, labs)? Why? @ -None What meds were considered but not given or refused? Why? @ -None Did you discuss the management of the patient with other professionals (professionals i.e. , PA, FLIGHT OPERATIONS MANAGER, lab, RT, psych nurse, social media director, extrusion die coordinator, teacher, county records management officer, supervisor case loading)? Give summary @ -No Was smoking cessation discussed for >3mins.? @ -No Was critical care preformed (if so, how long)? @ -No Were there social determinants of health that impacted care today? How? (Homelessness, low income, unemployed, alcoholism, drug addiction, transportation, low edu. Level, literacy, decrease access to med. care, long term, rehab)? @ -No Was there de-escalation of care discussed even if they declined (Discuss DNR or withdrawal of care, Hospice)? DNR status @ -No What co-morbidities impacted this encounter? (DM, HTN, Smoking, COPD, CAD, Cancer, CVA, ARF, Chemo, Hep., AIDS, mental health diagnosis, sleep apnea, morbid obesity)? @ -Diabetes Was patient admitted / discharged? Hospital course, mention meds given and route, prescriptions, significant lab abnormalities, going to OR and other pert inent info. @ -I have reviewed the patient's past medical records including triage summary, chief complaint, pertinent medical conditions, medications, surgical history, known medication allergies and previous visits to the emergency department. Patient seen and evaluated after being roomed. Patient is a 69-year-old female history of diabetes with insulin pump in place presenting today for hyperg lycemia that began after having a carb heavy lunch and after disconnecting her insulin pump and reconnecting and after a CT was performed. Patient seen by her PCP and thought to have confusion there, stating that she had been at the motor equipment commanding officer earlier when actually she had been at the hospital however otherwise patient has been at baseline and is currently at baseline. Sent to the ER for further evaluation of hyperglycemia. Initial evaluation showed well- appearing 69-year-old female no acute distress. Scant wheeze noted in right lower lung field, lungs otherwise CTAB with normal excursion, normal S1/2 on cardiac exam, abdomen soft and nontender skin well-perfused and pink. Patient denied any PHILLIP/shortness of breath, cough or fevers and had CT chest performed earlier today for further assessment of lung nodules, per patient. Differential diagnosis remains right over top considerations include hyperglycemia secondary to increased carbohydrate intake, insulin pump malfunction, infection, electrolyte abnormality. In regards to confusion noted by PCP earlier, per patient's friend at bedside, patient otherwise behaving normally and currently at baseline, patient AO x4, no focal neuro deficits, conversant, pleasant, jovial, suspect AMS 2/2 hyperglycemia however please see above for full differential. Plan for comprenehsive labs and imaging, including CMP, CBC, TSH, Ammonia, serum acetone, mag, phos, UA, trop, EKG, CT brain, 2L IV fluids. Ultimately, as patient is well appearing and otherwise currently asymptomatic, anticipate discharge home. Considered CXR however patient had CT chest performed earlier today and patient currently denies any respiratory complaints or fever. Patient has no anion gap on CMP. Patient's blood glucose downtrending, to 294 on her insulin pump and 342 when checked by RN. The pump appears to be continuing to supply patient with insulin and patient is able to manually input her BG into the pump when taken with her manual meter. Ultimately I discussed with the patient that, if/when discharged, the importance of checking her blood glucose manually 4 times a day and inputting her meter's BG into her pump so that she continues to get the appropriate amount of insulin until she can be seen again by her PCP and/or neon light installer. Patient to call her neon light installer tomorrow for further assistance with insulin pump. Patient signed out to Dr. Mccollum at 22:[address] brain read, completion of IV fluids, acetone, UA, ammonia level. (Remedios Trivedi) - Lab Data Lab Results 06/07/24 06/07/24 06/07/24 Range/Units 19:24 19:24 19:58 WBC 11.1 H (3.8-10.6) k/uL RBC 4.10 (3.80-5.40) m/uL Hgb 12.8 (11.4-16.0) gm/dL Hct 39.4 (34.0-46.0) % MCV 96.1 (80.0-100.0) fL MCH 31.1 (25.0-35.0) pg MCHC 32.4 (31.0-37.0) g/dL RDW 15.3 (11.5-15.5) % Plt Count 201 (150-450) k/uL MPV 10.5 Neutrophils % 92 % Lymphocytes % 5 % Monocytes % 3 % Eosinophils % 0 % Basophils % 0 % Neutrophils # 10.2 H (1.3-7.7) k/uL Lymphocytes # 0.5 L (1.0-4.8) k/uL Monocytes # 0.4 (0-1.0) k/uL Eosinophils # 0.0 (0-0.7) k/uL Basophils # 0.0 (0-0.2) k/uL PT (10.0-12.5) sec INR (<1.2) APTT (22.0-30.0) sec Sodium 135 L (137-145) mmol/L Potassium 4.6 (3.5-5.1) mmol/L Chloride 99 (98-107) mmol/L Carbon Dioxide 27 (22-30) mmol/L Anion Gap 9 mmol/L BUN 36 H (7-17) mg/dL Creatinine 3.00 H (0.52-1.04) mg/dL Est GFR (CKD-EPI)AfAm 17 (>60 ml/min/1.73 sqM) Est GFR (CKD-EPI)NonAf 15 (>60 ml/min/1.73 sqM) Glucose 544 H* (74-99) mg/dL POC Glucose (mg/dL) 457 H (70-110) mg/dL POC Glu Blue Split Trimmer ID Abel Kaba Calcium 9.2 (8.4-10.2) mg/dL Magnesium (1.6-2.3) mg/dL Total Bilirubin 0.7 (0.2-1.3) mg/dL AST 24 (14-36) U/L ALT 27 (4-34) U/L Alkaline Phosphatase 155 H (38-126) U/L Ammonia (<30) umol/L Troponin I (0.000-0.034) ng/mL Total Protein 6.4 (6.3-8.2) g/dL Albumin 3.9 (3.5-5.0) g/dL Urine Color Urine Appearance (Clear) Urine pH (5.0-8.0) Ur Specific [place] (1.001-1.035) Urine Protein (Negative) Urine Glucose (UA) (Negative) Urine Ketones (Negative) Urine Blood (Negative) Urine Nitrite (Negative) Urine Bilirubin (Negative) Urine Urobilinogen (<2.0) mg/dL Ur Leukocyte Esterase (Negative) Urine RBC (0-5) /hpf Urine WBC (0-5) /hpf Ur Squamous Epith Cells (0-4) /hpf Urine Bacteria (None) /hpf Granular Casts (0) /lpf Urine Mucus (None) /hpf Acetone, Qual (Negative) 06/07/24 06/07/24 06/07/24 Range/Units 20:10 20:10 21:57 WBC (3.8-10.6) k/uL RBC (3.80-5.40) m/uL Hgb (11.4-16.0) gm/dL Hct (34.0-46.0) % MCV (80.0-100.0) fL MCH (25.0-35.0) pg MCHC (31.0-37.0) g/dL RDW (11.5-15.5) % Plt Count (150-450) k/uL MPV Neutrophils % % Lymphocytes % % Monocytes % % Eosinophils % % Basophils % % Neutrophils # (1.3-7.7) k/uL Lymphocytes # (1.0-4.8) k/uL Monocytes # (0-1.0) k/uL Eosinophils # (0-0.7) k/uL Basophils # (0-0.2) k/uL PT 41.4 H (10.0-12.5) sec INR 4.2 H (<1.2) APTT 30.1 H (22.0-30.0) sec Sodium (137-145) mmol/L Potassium (3.5-5.1) mmol/L Chloride (98-107) mmol/L Carbon Dioxide (22-30) mmol/L Anion Gap mmol/L BUN (7-17) mg/dL Creatinine (0.52-1.04) mg/dL Est GFR (CKD-EPI)AfAm (>60 ml/min/1.73 sqM) Est GFR (CKD-EPI)NonAf (>60 ml/min/1.73 sqM) Glucose (74-99) mg/dL POC Glucose (mg/dL) (70-110) mg/dL POC Glu Blue Split Trimmer ID Calcium (8.4-10.2) mg/dL Magnesium (1.6-2.3) mg/dL Total Bilirubin (0.2-1.3) mg/dL AST (14-36) U/L ALT (4-34) U/L Alkaline Phosphatase (38-126) U/L Ammonia (<30) umol/L Troponin I <0.012 (0.000-0.034) ng/mL Total Protein (6.3-8.2) g/dL Albumin (3.5-5.0) g/dL Urine Color Colorless Urine Appearance Clear (Clear) Urine pH 5.5 (5.0-8.0) Ur Specific [place] 1.016 (1.001-1.035) Urine Protein Negative (Negative) Urine Glucose (UA) 4+ H (Negative) Urine Ketones Negative (Negative) Urine Blood Trace H (Negative) Urine Nitrite Negative (Negative) Urine Bilirubin Negative (Negative) Urine Urobilinogen <2.0 (<2.0) mg/dL Ur Leukocyte Esterase Negative (Negative) Urine RBC 1 (0-5) /hpf Urine WBC 1 (0-5) /hpf Ur Squamous Epith Cells 3 (0-4) /hpf Urine Bacteria Occasional H (None) /hpf Granular Casts 3 (0) /lpf Urine Mucus Occasional H (None) /hpf Acetone, Qual (Negative) 06/07/24 06/07/24 06/07/24 Range/Units 21:57 21:57 22:02 WBC (3.8-10.6) k/uL RBC (3.80-5.40) m/uL Hgb (11.4-16.0) gm/dL Hct (34.0-46.0) % MCV (80.0-100.0) fL MCH (25.0-35.0) pg MCHC (31.0-37.0) g/dL RDW (11.5-15.5) % Plt Count (150-450) k/uL MPV Neutrophils % % Lymphocytes % % Monocytes % % Eosinophils % % Basophils % % Neutrophils # (1.3-7.7) k/uL Lymphocytes # (1.0-4.8) k/uL Monocytes # (0-1.0) k/uL Eosinophils # (0-0.7) k/uL Basophils # (0-0.2) k/uL PT (10.0-12.5) sec INR (<1.2) APTT (22.0-30.0) sec Sodium (137-145) mmol/L Potassium (3.5-5.1) mmol/L Chloride (98-107) mmol/L Carbon Dioxide (22-30) mmol/L Anion Gap mmol/L BUN (7-17) mg/dL Creatinine (0.52-1.04) mg/dL Est GFR (CKD-EPI)AfAm (>60 ml/min/1.73 sqM) Est GFR (CKD-EPI)NonAf (>60 ml/min/1.73 sqM) Glucose (74-99) mg/dL POC Glucose (mg/dL) 342 H (70-110) mg/dL POC Glu Blue Split Trimmer ID Anne Rivera Calcium (8.4-10.2) mg/dL Magnesium 1.6 (1.6-2.3) mg/dL Total Bilirubin (0.2-1.3) mg/dL AST (14-36) U/L ALT (4-34) U/L Alkaline Phosphatase (38-126) U/L Ammonia <9 (<30) umol/L Troponin I (0.000-0.034) ng/mL Total Protein (6.3-8.2) g/dL Albumin (3.5-5.0) g/dL Urine Color Urine Appearance (Clear) Urine pH (5.0-8.0) Ur Specific [place] (1.001-1.035) Urine Protein (Negative) Urine Glucose (UA) (Negative) Urine Ketones (Negative) Urine Blood (Negative) Urine Nitrite (Negative) Urine Bilirubin (Negative) Urine Urobilinogen (<2.0) mg/dL Ur Leukocyte Esterase (Negative) Urine RBC (0-5) /hpf Urine WBC (0-5) /hpf Ur Squamous Epith Cells (0-4) /hpf Urine Bacteria (None) /hpf Granular Casts (0) /lpf Urine Mucus (None) /hpf Acetone, Qual Negative (Negative) 06/07/24 Range/Units 23:23 WBC (3.8-10.6) k/uL RBC (3.80-5.40) m/uL Hgb (11.4-16.0) gm/dL Hct (34.0-46.0) % MCV (80.0-100.0) fL MCH (25.0-35.0) pg MCHC (31.0-37.0) g/dL RDW (11.5-15.5) % Plt Count (150-450) k/uL MPV Neutrophils % % Lymphocytes % % Monocytes % % Eosinophils % % Basophils % % Neutrophils # (1.3-7.7) k/uL Lymphocytes # (1.0-4.8) k/uL Monocytes # (0-1.0) k/uL Eosinophils # (0-0.7) k/uL Basophils # (0-0.2) k/uL PT (10.0-12.5) sec INR (<1.2) APTT (22.0-30.0) sec Sodium (137-145) mmol/L Potassium (3.5-5.1) mmol/L Chloride (98-107) mmol/L Carbon Dioxide (22-30) mmol/L Anion Gap mmol/L BUN (7-17) mg/dL Creatinine (0.52-1.04) mg/dL Est GFR (CKD-EPI)AfAm (>60 ml/min/1.73 sqM) Est GFR (CKD-EPI)NonAf (>60 ml/min/1.73 sqM) Glucose (74-99) mg/dL POC Glucose (mg/dL) 257 H (70-110) mg/dL POC Glu Blue Split Trimmer ID Boyd Barragan Calcium (8.4-10.2) mg/dL Magnesium (1.6-2.3) mg/dL Total Bilirubin (0.2-1.3) mg/dL AST (14-36) U/L ALT (4-34) U/L Alkaline Phosphatase (38-126) U/L Ammonia (<30) umol/L Troponin I (0.000-0.034) ng/mL Total Protein (6.3-8.2) g/dL Albumin (3.5-5.0) g/dL Urine Color Urine Appearance (Clear) Urine pH (5.0-8.0) Ur Specific [place] (1.001-1.035) Urine Protein (Negative) Urine Glucose (UA) (Negative) Urine Ketones (Negative) Urine Blood (Negative) Urine Nitrite (Negative) Urine Bilirubin (Negative) Urine Urobilinogen (<2.0) mg/dL Ur Leukocyte Esterase (Negative) Urine RBC (0-5) /hpf Urine WBC (0-5) /hpf Ur Squamous Epith Cells (0-4) /hpf Urine Bacteria (None) /hpf Granular Casts (0) /lpf Urine Mucus (None) /hpf Acetone, Qual (Negative) Disposition <Shazia Meade - Last Filed: 06/07/24 18:36> Is patient prescribed a controlled substance at d/c from ED?: No Time of Disposition: 23:30 <Guillermo Mayers - Last Filed: 06/07/24 23:20> <Remedios Trivedi - Last Filed: 06/08/24 10:14> Clinical Impression: Hyperglycemia, Uncontrolled diabetes mellitus Disposition: HOME SELF-CARE Condition: Fair Instructions (If sedation given, give patient instructions): Diabetic Hyperglycemia (ED) Referrals: Lacey Arevalo DO [Primary Care Provider] - 1-2 days
[2024-06-07 20:00] LABS: Glucose,Whole Blood 457 mg/dL (70-110)
[2024-06-07 20:17] LABS: AST 24 U/L (14-36); African American GFR (CKD) 17 (>60 ml/min/1.73 sqM); Albumin 3.9 g/dL (3.5-5.0); Alkaline Phosphatase 155 U/L (38-126); Anion Gap 9 mmol/L; Blood Urea Nitrogen 36 mg/dL (7-17); Calcium 9.2 mg/dL (8.4-10.2); Carbon Dioxide 27 mmol/L (22-30); Chloride 99 mmol/L (98-107); Non-African American GFR(CKD) 15 (>60 ml/min/1.73 sqM); Potassium 4.6 mmol/L (3.5-5.1); Sodium 135 mmol/L (137-145); Total Bilirubin 0.7 mg/dL (0.2-1.3); Total Protein 6.4 g/dL (6.3-8.2)
[2024-06-07] MEDS: SODIUM CHLORIDE 0.9% 1,000 ML IV ONE ×2 (20:22→20:23)
[2024-06-07 20:39] LABS: ALT 27 U/L (4-34); Glucose 544 mg/dL (74-99)
[2024-06-07 20:57] LABS: Basophils % (A) 0 %; Eosinophils % (A) 0 %; HCT 39.4 % (34.0-46.0); HGB 12.8 gm/dL (11.4-16.0); Lymphocytes # (A) 0.5 k/uL (1.0-4.8); Lymphocytes % (A) 5 %; MCH 31.1 pg (25.0-35.0); MCHC 32.4 g/dL (31.0-37.0); MCV 96.1 fL (80.0-100.0); Mean Platelet Volume 10.5; Monocytes # (A) 0.4 k/uL (0-1.0); Monocytes % (A) 3 %; Neutrophils # (A) 10.2 k/uL (1.3-7.7); Neutrophils % (A) 92 %; Platelet Count 201 k/uL (150-450); RDW 15.3 % (11.5-15.5); WBC 11.1 k/uL (3.8-10.6)
[2024-06-07 21:02] LABS: INR 4.2 (<1.2); Partial Thromboplastin Time 30.1 sec (22.0-30.0); Prothrombin Time 41.4 sec (10.0-12.5)
[2024-06-07 22:05] LABS: Glucose,Whole Blood 342 mg/dL (70-110)
[2024-06-07 22:26] LABS: Magnesium 1.6 mg/dL (1.6-2.3)
[2024-06-07 22:40] LABS: Appearance,Urine Clear (Clear); Bacteria,Urine Occasional /hpf; Bilirubin,Urine Negative (Negative); Blood,Urine Trace (Negative); Color,Urine Colorless; Glucose,Urine (UA) 4+ (Negative); Granular Casts,Urine 3 /lpf (0); Ketones,Urine Negative (Negative); Leukocyte Esterase,Urine Negative (Negative); Mucus,Urine Occasional /hpf; Nitrite,Urine Negative (Negative); PH, Urine 5.5 (5.0-8.0); Protein,Urine Negative (Negative); RBC,Urine 1 /hpf (0-5); Specific Gravity,Urine 1.016 (1.001-1.035); Squamous Epithelial Cell,Urine 3 /hpf (0-4); Urobilinogen,Urine <2.0 mg/dL (<2.0); WBC,Urine 1 /hpf (0-5)
--- NOTE | 2024-06-07 23:03 | CT ---
EXAMINATION TYPE: CT brain wo con CT DLP: 1134.8 mGycm, Automated exposure control for dose reduction was used. DATE OF EXAM: 06/07/2024 9:38 PM COMPARISON: None.. CLINICAL INDICATION:Female, 69 years old with history of Altered mental status, pt arrives with c/o h igh blood sugars pt reports over 400 TECHNIQUE: Brain: Axial CT images of the brain were obtained with coronal and sagittal reformats created and rev iewed. Contrast used: None. Oral contrast used: None. FINDINGS: Extra-axial spaces: No abnormal extra-axial fluid collections. Basilar cisterns are patent. Ventricular system: Ventricles appear dilated in proportion to the degree of cerebral atrophy. Cerebral parenchyma: No increased attenuation to suggest acute intraparenchymal hemorrhage. The gra y-white matter interface appears maintained. Moderate generalized brain atrophy. Scattered hypoatte nuating areas are seen within the cerebral white matter, nonspecific but most often seen with chronic microvascular ischemic changes; moderate in degree. Cerebellum: No acute abnormality. Mass effect: No evidence of mass effect or midline shift. Intracranial vasculature: Atherosclerotic calcifications of the larger arteries near the skull base. Soft tissues: No acute or concerning abnormality. Visualized orbits: Orbital contents appear grossly intact. There has likely been previous bilateral lens surgery. Calvarium/osseous structures: No evidence of calvarial fracture. Paranasal sinuses and mastoid air cells: Mild scattered paranasal sinus mucosal thickening. Mastoid air cells are clear. MRI is more sensitive for detecting acute processes such as infarct, and may be considered if clinica lly warranted. IMPRESSION: 1. No CT evidence of an acute intracranial abnormality. 2. Atrophy and chronic microvascular ischemic white matter changes.
[2024-06-07 23:26] LABS: Glucose,Whole Blood 257 mg/dL (70-110)
[2024-06-07] MEDS: INSULIN REGULAR 100 UNIT/ML VIAL (IM/SQ) SQ ONE (23:36)
[2024-06-08 00:02] VITALS: BP 154/74; PULSE 72; RESP 20; TEMP 98.7
== END 2024-06-07 23:57 | disposition home or self-care (01) ==
LOC: EC 18:04
DX: E11.65 Type 2 diabetes mellitus with hyperglycemia (principal); Z79.4 Long term (current) use of insulin; Z88.0 Allergy status to penicillin; Z88.1 Allergy status to other antibiotic agents; Z91.041 Radiographic dye allergy status
CPT/HCPCS: 36415; 70450; 80053; 81001; 82009; 82140; 83735; 84484; 85025; 85610; 85730; 96360; 96361; 99285

== ENCOUNTER → 2024-06-07 | Outpatient (CLI) | payer MEDICARE, BC ==
[2024-06-07 13:04] LABS: African American GFR (CKD) 20 (>60 ml/min/1.73 sqM); Blood Urea Nitrogen 30 mg/dL (7-17); Non-African American GFR(CKD) 17 (>60 ml/min/1.73 sqM)
--- NOTE | 2024-06-23 15:20 | CT ---
EXAMINATION TYPE: CT chest wo con CT DLP: 350.90 mGycm, Automated exposure control for dose reduction was used. DATE OF EXAM: 06/07/2024 1:32 PM COMPARISON: PET/CT 03/18/2023, CT chest 01/06/2022, 07/17/2021, CT abdomen and pelvis 08/11/2022, chest ra diograph 03/21/2024 CLINICAL INDICATION:Female, 69 years old with history of R911 SOLITARY PULMONARY NODULE; MERGED WITH [facility], TECHNIQUE: Multiple axial images were obtained through the chest without IV contrast. Lack of IV or o ral contrast limits evaluation of solid and hollow organ viscera. . Coronal and sagittal reformats re viewed. FINDINGS: LUNGS/ PLEURA: No pleural effusion or pneumothorax. Several stable scattered pulmonary nodules includ ing a left lower lobe 1.2 cm solid pulmonary nodule (series 4, image 34), left midlung 1.2 cm solid p ulmonary nodule (series 4, 20), a right upper lobe 4.4 mm solid pulmonary nodule ( series 4, image 20 ), right lower lobe 2.9 mm solid pulmonary nodule (series 4, image 27), left lower lobe 2.8 mm solid pulmonary nodule (series 4, image 24). Left lower lobe 3.4 and 5.4 mm solid pulmonary nodules (series 4, image 38). Medial right lower lobe 4.3 mm solid pulmonary nodule (series 4, image 39), and right lower lobe 4.6 mm solid pulmonary nodule (series 4, image 40). No new or enlarging pulmonary nodules. AIRWAY: Patent and unremarkable.. HEART: Size within normal limits. No pericardial effusion. Moderate coronary arterial calcifications. Aortic valvular calcifications. MEDIASTINUM: No gross evidence of adenopathy. VASCULATURE: No aortic aneurysm. MUSCULOSKELETAL: Subacute displaced comminuted fracture of the inferior right scapula which is subtly retrospectively visualized on prior chest radiograph 03/21/2024. There is some callus formation ident ified. Multilevel degenerative changes of the visualized spine. Bilateral shoulder arthropathy. SOFT TISSUES/LYMPH NODES: Unremarkable. LOWER NECK: No significant findings. UPPER ABDOMEN: Post cholecystectomy changes with redemonstration of trace pneumobilia. There is again absence of the pancreatic body and tail with multiple punctate calcifications at the pancreatic head . May be related to chronic pancreatitis. Nonobstructive right renal 3 mm calculus. Stable bilateral likely renal cortical cysts. IMPRESSION: 1. Several scattered pulmonary nodules measuring up to 1.2 cm are redemonstrated and stable dating ba ck to at least 2020. No new or enlarging pulmonary nodules. 2. Subacute comminuted displaced fracture of the inferior right scapula. Correlate for history of tra claude. 3. Nonobstructive right renal calculus.
== END | disposition home or self-care (01) ==
LOC: RADCTMAIN 12:18
PROVIDERS: ATTEND Internal Medicine Critical Care Medicine
DX: R91.1 Solitary pulmonary nodule (principal); N20.0 Calculus of kidney
CPT/HCPCS: 36415; 71250; 82565; 84520

== ENCOUNTER → 2024-07-07 | Outpatient (CLI) | payer MEDICARE, BC | END | disposition home or self-care (01) | LOC: LABWHC1 08:24 | PROVIDERS: ATTEND Orthopaedic Surgery | DX: Z01.818 Encounter for other preprocedural examination | CPT/HCPCS: 36415; 85027; 85610; 85730; 93005 ==

== ENCOUNTER 2024-08-01 07:09 | Inpatient (IN) | payer MEDICARE, BC ==
[2024-07-27 14:43] VITALS: BMI 30.9
[~2024-08-01 07:09] MED LIST: LIDOCAINE 1% (10MG/ML) FOR IV START INTRADERMA PRN; TRANEXAMIC 1,000 MG/100ML-NACL 1,000 MG in SALINE 1 100ML.BAG IVPB PRN
[2024-08-01 08:01] LABS: Glucose,Whole Blood 208 mg/dL (70-110)
[2024-08-01 08:07] LABS: Basophils % (A) 0 %; Eosinophils # (A) 0.1 k/uL (0-0.7); Eosinophils % (A) 1 %; HCT 35.9 % (34.0-46.0); HGB 12.1 gm/dL (11.4-16.0); Lymphocytes # (A) 1.4 k/uL (1.0-4.8); Lymphocytes % (A) 20 %; MCH 31.6 pg (25.0-35.0); MCHC 33.6 g/dL (31.0-37.0); MCV 94.2 fL (80.0-100.0); Mean Platelet Volume 9.2; Monocytes # (A) 0.5 k/uL (0-1.0); Monocytes % (A) 7 %; Neutrophils % (A) 71 %; Platelet Count 218 k/uL (150-450); RBC 3.81 m/uL (3.80-5.40); RDW 15.4 % (11.5-15.5); WBC 7.1 k/uL (3.8-10.6)
[2024-08-01 08:30] LABS: ALT 17 U/L (4-34); AST 22 U/L (14-36); African American GFR (CKD) 22 (>60 ml/min/1.73 sqM); Albumin 3.8 g/dL (3.5-5.0); Alkaline Phosphatase 106 U/L (38-126); Anion Gap 7 mmol/L; Blood Urea Nitrogen 34 mg/dL (7-17); Calcium 8.8 mg/dL (8.4-10.2); Carbon Dioxide 26 mmol/L (22-30); Chloride 103 mmol/L (98-107); Glucose 213 mg/dL (74-99); Non-African American GFR(CKD) 19 (>60 ml/min/1.73 sqM); Potassium 4.3 mmol/L (3.5-5.1); Sodium 136 mmol/L (137-145); Total Bilirubin 1.1 mg/dL (0.2-1.3); Total Protein 6.1 g/dL (6.3-8.2)
[2024-08-01] MEDS: MELOXICAM 7.5 MG TAB PO PRN (08:33)
[2024-08-01] MEDS: GABAPENTIN 300 MG CAP PO PRN (08:33)
[2024-08-01] MEDS: ACETAMINOPHEN TAB 500 MG TAB PO PRN (08:33)
[2024-08-01] MEDS: LACTATED RINGERS 1,000 ML IV SCH (08:34)
[2024-08-01] MEDS: LACTATED RINGERS 1,000 ML IV ONE ×2 (08:36→10:27)
--- NOTE | 2024-08-01 08:36 | P.ANPRN ---
Procedure Note - Anesthesia - Nerve Block Performed Right Adductor Canal Infusion Time Out Performed: Yes Date of Procedure: 08/01/24 Procedure Start Time: :15 Procedure Stop Time: : Location of Patient: PreOp Indication: Acute Post-Operative Pain, Requested by Surgeon Sedation Type: Sedate with meaningful contact maintained Preparation: Sterile Prep, Sterile Dressing Position: Supine Catheter: Indwelling Needle Types: Pajunk Needle Gauge: 18 Ultrasound used to visualize needle placement: Yes Ultrasound used to observe medication spread: Yes Injectate: 0.5% Ropivacaine (see comment for volume) (20 ml + 10 ml NS) Blood Aspirated: No Pain Paresthesia on Injection Noted: No Resistance on Injection: Normal Image Stored and Saved: Yes Events: Uneventful and Well Tolerated
[2024-08-01] MEDS: fentaNYL (PF) 50 MCG/ML 2 ML AMP IVP PRN (08:37)
[2024-08-01] MEDS: MIDAZOLAM 2 MG/2 ML VIAL IV PRN (08:37)
[2024-08-01] MEDS: ONDANSETRON 4 MG/2 ML VIAL IVP ONE (08:38)
--- NOTE | 2024-08-01 08:38 | P.ANPRN ---
Procedure Note - Anesthesia - Nerve Block Performed Right [place] Single Time Out Performed: Yes Date of Procedure: 08/01/24 Procedure Start Time: : Procedure Stop Time: :30 Location of Patient: PreOp Indication: Acute Post-Operative Pain, Requested by Surgeon Sedation Type: Sedate with meaningful contact maintained Preparation: Sterile Prep Position: Left Lateral Needle Types: Pajunk Needle Gauge: 21 Ultrasound used to visualize needle placement: Yes Ultrasound used to observe medication spread: Yes Injectate: 0.5% Ropivacaine (see comment for volume) (15 ml + lidocaine 1% with epi 1/200K 15 ml) Blood Aspirated: No Pain Paresthesia on Injection Noted: No Resistance on Injection: Normal Image Stored and Saved: Yes Events: Uneventful and Well Tolerated
[2024-08-01] MEDS ORDERED: ONDANSETRON 4 MG/2 ML VIAL IVP PRN (08:51)
[2024-08-01] MEDS ORDERED: HYDROmorphone 0.5 MG/0.5 ML SYRINGE IVP PRN ×3 (08:51)
[2024-08-01] MEDS ORDERED: MAGNESIUM HYDROXIDE 2,400 MG/30 ML CUP PO PRN (08:51)
[2024-08-01] MEDS ORDERED: NA PHOS,M-B/NA PHOS,DI-BA 133 ML ENEMA RECTAL PRN (08:51)
[2024-08-01] MEDS ORDERED: bisacodyL 10 MG SUPP RECTAL PRN (08:51)
[2024-08-01] MEDS ORDERED: NALOXONE 0.4 MG/ML 1 ML VIAL IV PRN (08:51)
[2024-08-01] MEDS ORDERED: HYDROcodone/APAP 7.5-325MG 1 EACH TAB PO PRN (08:52)
[2024-08-01] MEDS ORDERED: LIDOCAINE 4% LTA KIT (4 ML) TOPICAL ONE (09:05)
[2024-08-01] MEDS ORDERED: LIDOCAINE 1% INJ 10MG/ML (20 ML MDV) ONE (09:05)
[2024-08-01] MEDS ORDERED: fentaNYL (PF) 50 MCG/ML 2 ML AMP ONE (09:05)
[2024-08-01] MEDS ORDERED: ePHEDrine 50 MG/ML 1 ML VIAL ONE (09:05)
[2024-08-01] MEDS ORDERED: ROCURONIUM 10 MG/ML (5 ML VIAL) IV ONE (09:05)
[2024-08-01] MEDS ORDERED: PHENYLEPHRINE-0.9% NACL SYG 1,000 MCG/10 ML SYRINGE ONE (09:05)
[2024-08-01] MEDS ORDERED: NEOSTIGMINE 1 MG/ML 10 ML VIAL ONE (09:05)
[2024-08-01] MEDS ORDERED: MIDAZOLAM 2 MG/2 ML VIAL ONE (09:05)
[2024-08-01] MEDS ORDERED: LIDOCAINE 1%-EPI 1:100,000 20 ML VIAL ONE (09:05)
[2024-08-01] MEDS ORDERED: GLYCOPYRROLATE 0.2 MG/ML 2 ML VIAL ONE (09:05)
[2024-08-01] MEDS ORDERED: ROPIVACAINE 5 MG/ML 30 ML VIAL ONE (09:05)
[2024-08-01] MEDS ORDERED: SUCCINYLCHOLINE CHLORIDE 200 MG/10 ML VIAL IV ONE (09:05)
[2024-08-01] MEDS ORDERED: PROPOFOL 10 MG/ML 20 ML VIAL IV ONE (09:05)
[2024-08-01 09:33] LABS: Prothrombin Time 10.5 sec (10.0-12.5)
[2024-08-01 09:36] LABS: Partial Thromboplastin Time 20.7 sec (22.0-30.0)
[2024-08-01] MEDS: ceFAZolin 1,000 MG in SODIUM CHLORIDE 0.9% 1,000 ML IRRIGATION ONE (09:40)
[2024-08-01 09:59] LABS: Glucose,Whole Blood 202 mg/dL (70-110)
--- NOTE | 2024-08-01 10:18 | P.OP ---
Date of Procedure: 08/01/24 Preoperative Diagnosis: 1. Severe arthritis right knee 2. Avascular necrosis right lateral femoral condyle Postoperative Diagnosis: 1. Severe osteoarthritis right knee 2. Avascular necrosis right lateral femoral condyle Procedure(s) Performed: Right total knee arthroplasty Implants: [employer] II Oxinium Bi-cruciate stabilized femoral component size 4, right [employer] nonporous tibial baseplate size 4, right [employer] Journey II, constrained articular insert, size 11 mm, Size 3-4, right [employer] Ivonne II resurfacing patellar component, oval, 29 mm All components were cemented using Palacos R bone cement The articulation is Oxinium on polyethylene Anesthesia: ANAA Surgeon: Miller Bland Hand Endband Cutter #1: Jaclyn Aguirre Estimated Blood Loss (ml): 100 Pathology: none sent Condition: stable Disposition: PACU Indications for Procedure: The patient's knee is end-stage, and conservative management has failed. The operation of knee replacement has been discussed at length in the office, as well as potential risks and complications. These are inclusive of, but not limited to: Infection, bleeding, scarring, discomfort, stiffness, blood vessel and nerve damage, need for further surgery, failure to relieve symptoms, persistence, recurrence, or worsening of problems, loosening, dislocation, wear, blood clot, pulmonary embolism, , gait dysfunction, stiffness, and other risks as discussed in the office. Patient elects to proceed and the consent form has been signed. Operative Findings: The operative findings are consistent with severe osteoarthritis of the right knee and avascular necrosis of the right lateral femoral condyle Description of Procedure: The patient was seen in the preoperative area, the consent was reviewed and the operative site was marked with a skin marker. The patient verified the procedure and the operative site. An adductor canal pain catheter and an iPACK block were placed by anesthesia in the preoperative area. The patient was then brought to the operating room and positioned on the operating room table in the supine position. Preoperative antibiotics and a gram of tranexamic acid were given intravenously. A geneal anesthetic was administered by the anesthesia department. Care was taken to make sure that all pressure points were adequately padded. A tourniquet was placed on the upper thigh and the lower extremity was prepped with ChloraPrep and draped in usual sterile fashion. A universal time-out was then performed which confirmed the patient's name, surgical site, ALLERGIES, and consent. The lower extremity was then exsanguinated and tourniquet was inflated to 250 mmHg. A standard anterior midline approach to the knee was performed. The skin and subcutaneous tissue were sharply dissected down to the patellar tendon. A medial parapatellar arthrotomy was then performed. The knee was then extended, the patellar was everted, and the knee was flexed. The infra-patellar fat pad was removed in order to enhance exposure. The anterior horns of both menisci were excised, and a release was performed to the posterior medial aspect of the knee. On gross visual inspection, there was complete loss of articular cartilage in the medial and patellofemoral joint spaces. There was also significant cartilage damage in the lateral compartment. There was also significant changes from avascular necrosis to the right lateral femoral condyle. There is significant delamination of the cartilage and destruction of the subcondylar bone. There were multiple periarticular osteophytes globally about the knee which were then removed with a Ronguer. The femoral canal was then opened with the 9.5 mm intramedullary drill. The 8 mm intramedullary jonathan was then inserted into the femoral canal with the distal femoral cutting guide set for 5 of valgus. The distal femoral cutting block was then pinned in place. The intramedullary jonathan was then removed, and the distal femur was then cut. The cutting block was then removed and the cut was checked for symmetry. The resected bone was then measured to confirm the appropriate distal femoral resection. Next, the sizing guide was then placed and set for 3 external rotation based off of the epicondylar axis and Portland's line. Pins were then placed and the drill holes, and the femur was sized with the sizing stylus. The pins were then removed, and the sizing guide was then removed. The spikes of the appropriate size femoral block was then placed into the predrilled holes, and malleted into place. Two 45 mm pins were then placed into the fixation holes on the cutting block. An leon wing was then used to ensure there would be no notching with the anterior cut. The anterior condyles were cut without notching. The anterior chord cut was then performed, followed by the posterior cut, posterior chamfer cut, and the anterior chamfer cut. The collateral ligaments were protected during the entire process. The cutting block was then removed. Any remaining bone and osteophytes were removed from the femur with a Ronguer. Attention was then directed to the tibia. The remaining ACL was removed with a Ronguer, and the tibia was then gently subluxed forward with a large bent knee retractor. Any remaining menisci were excised. The posterior lateral corner was cauterized in order to coagulate the lateral geniculate artery. The extra medullary tibial cutting guide was then placed, set for the appropriate rotation, slope, and depth of resection. The proximal tibia cutting guide was then pinned in place. Proximal tibia was then cut and sized. A curved osteotome was then used to remove any posterior osteophytes from the distal femur. The femoral trial was placed. The box drill guide was then used to remove the intracondylar femoral bone. The box trial was then placed. The tibial trial was placed with the appropriate-sized insert. The knee was able to fully extend and flex to 130 and was stable throughout all range of motion. The knee was then extended and the patella was everted. Patella was then measured, and then using an osteotomy guide, the patella was cut at the appropriate level. The patellar component was sized. The patellar drill guide was placed and the patella was drilled. The patella trial was then placed. The knee was then taken through range of motion with the patella trial and the patella tracked normally using the no thumbs technique. The patella trial was then removed. The knee was then flexed and lug holes were drilled through the femoral trial and the femoral trial was then removed. The tibial was then re-exposed, and the tibial broach guide was then pinned in place after it was set for the appropriate rotation to allow for the most coverage without overhang. The tibia was then reamed and broached. The femoral canal was plugged with autologous bone. The cut surfaces of bone were then irrigated with pulsatile lavage. The knee was also irrigated with Irrisept solution. The components were then opened, the cement was mixed. Cement was placed on the backside of the femoral, tibial, and patellar c omponents. Cement was then applied to the tibial surface and pressurized into the surface using finger pressurization technique. The tibial component was then applied and excess cement was removed after it was impacted securely noted to be flush with the cut surface. In similar fashion, the cement was applied to the cut femoral surface, pressurized and using finger pressurization the component was impacted in place. Excess cement was removed. The polyethylene spacer was then implanted and locked into position. Patellar component was then applied in a similar technique and the patellar clamp was used to hold patella in place while the cement hardened. The knee was held in full extension while the cement hardened. Once the cement had fully hardened, the knee was reinspected. Any other cement extrusion was removed the final range of motion testing showed range of motion from 0-130 with excellent stability, both medial and laterally and appropriate alignment of the leg. Patella tracked normally. After the cemented hardened, the tourniquet was released and hemostasis was obtained. A second gram of transexamic acid was given intravenously. The knee was again irrigated. The knee was again taken through range of motion and found to be stable throughout all range of motion of 0-130, and the patella tracked normally. The fascia was then closed with 0 Vicryl followed by #2 strata fix suture. The subcutaneous tissue was closed with 3-0 Vicryl and 3-0 strata fix. Exofin glue was used for the skin and placed with the knee in flexion. After the glue had dried, and Optafoam silver impregnated dressing was applied. A lightly compressive dressing was applied using web roll and Elroy wrap. Patient was then transferred to the stretcher and taken to recovery room in stable condition. Sponge and needle counts were correct. The administrative services assistant CORRY Quijano was required due the complexity surgery and the need for a skilled surgical coordinator. She assisted in positioning, draping, retraction, and closure of the wound.
[2024-08-01] MEDS: ROPIVACAINE 1,100 MG, SODIUM CHLORIDE 0.9% 500 ML 330 ML, EMPTY PAIN BALL 1 EACH MISCELLANE PRN (11:03)
[2024-08-01 11:12] LABS: Glucose,Whole Blood 184 mg/dL (70-110)
--- NOTE | 2024-08-01 11:17 | XR ---
EXAMINATION TYPE: XR knee limited RT DATE OF EXAM: 08/01/2024 11:10 AM CLINICAL INDICATION: Female, 69 years old with history of Evaluation for Postop abnormality and align ment; [facility] COMPARISON: 02/27/2024. TECHNIQUE: XR knee limited RT; examined in Frontal, lateral projections. FINDINGS: Status post total knee arthroplasty changes with hardware in appropriate alignment and in tact. No evidence of fracture. Subcutaneous lucencies and lucencies within the joint consistent with surgical changes. IMPRESSION: Status post total knee arthroplasty changes with hardware intact and appropriate alignment. No fractu res identified.
[2024-08-01] MEDS: HYDROmorphone 0.5 MG/0.5 ML SYRINGE IVP PRN (11:55)
[2024-08-01] MEDS: DEXAMETHASONE SOD PHOSPHATE 4 MG/ML 1 ML VIAL IV ONE (18:31)
[2024-08-01] MEDS: SODIUM CHLORIDE 0.9% 1,000 ML IV SCH (18:59)
[2024-08-01] MEDS: SENNOSIDES-DOCUSATE SODIUM 1 EACH TAB PO SCH (21:02)
[2024-08-01] MEDS: HYDROcodone/APAP 7.5-325MG 1 EACH TAB PO PRN (21:03)
[2024-08-01 23:32] LABS: Glucose,Whole Blood 193 mg/dL (70-110)
[2024-08-02] MEDS ORDERED: DEXTROSE 50% SYRINGE 50 ML IVP PRN ×3 (02:09→10:11)
[2024-08-02 05:55] LABS: Glucose,Whole Blood 124 mg/dL (70-110)
--- NOTE | 2024-08-02 06:47 | P.PN ---
Progress Note - Text Progress Note Date: 08/02/24 Postoperative day # 1 status post total knee arthroplasty, and adductor canal catheter placed for postoperative analgesia, currently at ropivacaine 0.2% 8 mL per hour and continuous infusion, visual analogue scale is 3/10, patient using oral pain medication for breakthrough pain. Assessment and plan= Acute postoperative pain, adductor canal catheter for pain control, pain is well controlled we'll continue the same management.
--- NOTE | 2024-08-02 08:17 | P.PN ---
Subjective Progress Note Date: 08/02/24 Principal diagnosis: Stress fracture with collapse lateral femoral condyle right knee. Severe osteoarthritis right knee. Status post total right knee arthroplasty. This is a 69-year-old female who is postop day #1 status post total right knee arthroplasty. She has no new complaints or concerns today. She does have some urinary retention. She denies nausea, vomiting or diarrhea. Vital signs are stable. Objective - Vital Signs Vital signs: Vital Signs Temp 97.5 F L 08/02/24 01:43 Pulse 74 08/02/24 01:43 Resp 16 08/02/24 01:43 BP 104/65 08/02/24 01:43 Pulse Ox 95 08/02/24 01:43 FiO2 Intake & Output 08/01/24 08/02/24 08/02/24 18:59 06:59 18:59 Intake Total 1501 Output Total 100 450 Balance 1401 -450 Weight 88.4 kg Intake: IV 1501 Output: Urine 450 Uretheral (Garibay) 450 Estimated Blood Loss 100 - Exam This is a pleasant 69-year-old female in no acute distress. She is alert and oriented x 3. Exam of the right knee reveals that her dressing is clean, dry and intact. Pain block catheter is in place. She has full foot and ankle motion without difficulty or pain. She is able to actively raise the leg off the bed independently. Neurovascular status to the lower extremity is intact. - Labs CBC & Chem 7: 08/01/24 07:58 08/01/24 07:58 Labs: Abnormal Lab Results - Last 24 Hours (Table) 08/01/24 08/01/24 08/01/24 Range/Units 07:58 09:04 09:59 APTT 20.7 L (22.0-30.0) sec Sodium 136 L (137-145) mmol/L BUN 34 H (7-17) mg/dL Creatinine 2.48 H (0.52-1.04) mg/dL Glucose 213 H (74-99) mg/dL POC Glucose (mg/dL) 202 H (70-110) mg/dL Total Protein 6.1 L (6.3-8.2) g/dL 08/01/24 08/01/24 08/02/24 Range/Units 11:09 23:30 05:54 APTT (22.0-30.0) sec Sodium (137-145) mmol/L BUN (7-17) mg/dL Creatinine (0.52-1.04) mg/dL Glucose (74-99) mg/dL POC Glucose (mg/dL) 184 H 193 H 124 H (70-110) mg/dL Total Protein (6.3-8.2) g/dL Assessment and Plan (1) Localized osteoarthritis of right knee Current Visit: Yes Status: Acute Code(s): M17.11 - UNILATERAL PRIMARY OSTEOARTHRITIS, RIGHT KNEE SNOMED Code(s): 913401802921617 (2) Status post total right knee replacement Current Visit: Yes Status: Acute Code(s): Z96.651 - PRESENCE OF RIGHT ARTIFICIAL KNEE JOINT SNOMED Code(s): 3262857173708 Plan: The clinical findings are discussed with the patient. She is encouraged to continue to drink fluids and try to void on her own. If she is unable to void we will reinsert catheter. We are planning discharge to inpatient rehab Wednesday.
[2024-08-02] MEDS: APIXABAN 2.5 MG TABLET PO SCH (08:30)
[2024-08-02 08:46] LABS: Basophils # (A) 0.02 X 10*3/uL (0.00-0.10); Basophils % (A) 0.2 %; Eosinophils # (A) 0.09 X 10*3/uL (0.04-0.35); HCT 29.7 % (37.2-46.3); HGB 9.5 g/dL (12.0-15.0); Lymphocytes # (A) 1.18 X 10*3/uL (0.90-5.00); Lymphocytes % (A) 12.7 %; MCH 31.1 pg (27.0-32.0); MCV 97.4 FL (80.0-97.0); Mean Platelet Volume 12.2 FL (9.5-12.2); Monocytes # (A) 1.16 X 10*3/uL (0.20-1.00); Monocytes % (A) 12.5 %; NRBC Per 100 WBC 0 X 10*3/uL (0.00-0.01); Neutrophils # (A) 6.79 X 10*3/uL (1.80-7.70); Neutrophils % (A) 72.8 %; Platelet Count 152 X 10*3/uL (140-440); RBC 3.05 X 10*6/uL (4.10-5.20); RDW 16.1 % (11.5-14.5); WBC 9.31 X 10*3/uL (4.50-10.00)
--- NOTE | 2024-08-02 10:34 | P.CONS ---
History of Present Illness - Reason for Consult Type 2 diabetes mellitus - History of Present Illness Patient is a 69-year-old female postoperative day 1 right knee arthroplasty patient pain is well-controlled patient functional bleed doing well but retaining urine this is secondary to anesthesia and pain medication she is receiving. Patient had a straight catheterization 1 time today we will continue to do voiding trials she continues to retain urine she may need Garibay catheter. REVIEW OF SYSTEMS: All other systems are negative except those mentioned in the HPI PHYSICAL EXAMINATION: GENERAL: The patient is alert and oriented x3, not in any acute distress. Well developed, well nourished. HEENT: Pupils are round and equally reacting to light. EOMI. No scleral icterus. No conjunctival pallor. Normocephalic, atraumatic. No pharyngeal erythema. No thyromegaly. CARDIOVASCULAR: S1 and S2 present. No murmurs, rubs, or gallops. PULMONARY: Chest is clear to auscultation, no wheezing or crackles. ABDOMEN: Soft, nontender, nondistended, normoactive bowel sounds. No palpable organomegaly. MUSCULOSKELETAL: No joint swelling or deformity. EXTREMITIES: No cyanosis, clubbing, or pedal edema. NEUROLOGICAL: Gross neurological examination did not reveal any focal deficits. SKIN: No rashes. Assessment and plan Right knee arthroplasty postoperative day 1: Patient is clinically doing well b ut has urinary retention try to avoid opiates continue voiding trials if she continues to retain will need a Garibay catheter. -Chronic kidney disease stage IV -History of DVT in the past but patient is not on anticoagulation but will be discharged on Eliquis 2.5 twice a day -Type 2 diabetes mellitus with diabetic nephropathy patient has an insulin pump which will be resumed. DVT prophylaxis: Eliquis 2.5 mg twice a day Past Medical History Past Medical History: Coronary Artery Disease (CAD), Diabetes Mellitus, Deep Vein Thrombosis (DVT), Hyperlipidemia, Hypertension, Pulmonary Embolus (PE), Renal Disease, Sleep Apnea/CPAP/BIPAP Additional Past Medical History / Comment(s): Vitamin D Deficency, has insulin pump, elevated liver enzymes, CPAP use. History of Any Multi-Drug Resistant Organisms: None Reported Past Surgical History: Appendectomy, Breast Surgery, Cholecystectomy, Heart Catheterization, Orthopedic Surgery Additional Past Surgical History / Comment(s): Breast biopsy, carpal tunnel to right hand, colonoscopy. Past Anesthesia/Blood Transfusion Reactions: No Reported Reaction Past Psychological History: No Psychological Hx Reported Smoking Status: Never smoker Past Alcohol Use History: Occasional Additional Past Alcohol Use History / Comment(s): No alcohol in 4 months. Past Drug Use History: None Reported - Past Family History Mother Family Medical History: No Reported History Additional Family Medical History / Comment(s): Heart disease. Father Additional Family Medical History / Comment(s): Heart disease. Medications and Allergies Home Medications Medication Instructions Recorded Confirmed Type allopurinoL [Zyloprim] 50 mg PO DAILY 11/16/18 08/01/24 History Insulin Aspart (For Pump) [NovoLOG 0.01 unit SQ-PUMP CONTINUOUS 08/24/19 08/01/24 History (For Pump)] Iron Polysaccharide Complex 150 mg PO MOFR 03/21/24 07/27/24 History [Ferrex 150] Magnesium Oxide 420mg 420 mg PO BID 03/21/24 07/27/24 History calcitrioL 0.5 mcg PO MOFR 03/21/24 08/01/24 History Apixaban [Eliquis] 2.5 mg PO BID 07/27/24 08/01/24 History Ergocalciferol [Vitamin D2 (1250 1,250 mcg PO DAILY 07/27/24 07/27/24 History Mcg = 20971 Iu)] HYDROcodone/APAP 7.5-325MG [[place] 1 - 2 tab PO Q6H PRN #32 tab 08/01/24 Rx 7.5-325] Sennosides [Senokot] 2 tab PO DAILY PRN #60 tablet 08/01/24 Rx Allergies Allergy/AdvReac Type Severity Reaction Status Date / Time azithromycin Allergy Unknown Rash/Hives Verified 08/01/24 07:33 amoxicillin Allergy Rash/Hives Verified 08/01/24 07:33 metronidazole [From Flagyl] Allergy Unknown Verified 08/01/24 07:33 Iodinated Contrast Media AdvReac has KIDNEY Verified 08/01/24 07:33 [Iodinated Contrast- Oral issues and IV Dye] Physical Exam Vitals: Vital Signs Temp Pulse Pulse Resp BP Pulse Ox 08/02/24 07:31 98.7 F 65 18 125/70 97 08/02/24 01:43 97.5 F L 74 16 104/65 95 08/01/24 20:00 74 16 08/01/24 17:13 97.5 F L 62 18 99/61 99 08/01/24 16:30 65 15 101/51 08/01/24 15:45 78 16 138/60 08/01/24 14:45 67 16 115/55 100 08/01/24 14:15 58 L 16 130/59 97 08/01/24 13:45 60 16 119/55 98 08/01/24 13:15 59 L 16 110/57 98 08/01/24 12:45 57 L 16 114/55 97 08/01/24 12:15 61 16 115/56 99 08/01/24 12:00 69 16 117/58 98 08/01/24 11:45 65 16 130/57 99 08/01/24 11:28 76 16 129/62 100 08/01/24 11:13 63 16 122/58 99 08/01/24 10:57 78 16 118/59 96 08/01/24 10:42 97 F L 95 14 140/62 95 Intake and Output 08/01/24 08/02/24 08/02/24 22:59 06:59 14:59 Intake Total 450 Output Total 450 Balance 450 -450 Intake: IV 450 Output: Urine 450 Uretheral (Garibay) 450 Other: Weight 88.4 kg Results CBC & Chem 7: 08/02/24 04:52 08/01/24 07:58 Labs: Abnormal Lab Results - Last 24 Hours (Table) 08/01/24 08/01/24 08/02/24 Range/Units 11:09 23:30 04:52 RBC 3.05 L (4.10-5.20) X 10*6/uL Hgb 9.5 L (12.0-15.0) g/dL Hct 29.7 L (37.2-46.3) % MCV 97.4 H (80.0-97.0) FL RDW 16.1 H (11.5-14.5) % Immature Gran # 0.07 H (0.00-0.04) X 10*3/uL Monocytes # 1.16 H (0.20-1.00) X 10*3/uL POC Glucose (mg/dL) 184 H 193 H (70-110) mg/dL 08/02/24 Range/Units 05:54 RBC (4.10-5.20) X 10*6/uL Hgb (12.0-15.0) g/dL Hct (37.2-46.3) % MCV (80.0-97.0) FL RDW (11.5-14.5) % Immature Gran # (0.00-0.04) X 10*3/uL Monocytes # (0.20-1.00) X 10*3/uL POC Glucose (mg/dL) 124 H (70-110) mg/dL
[2024-08-02] MEDS: ERGOCALCIFEROL 1,250 MCG (50,000 IU) CAPSULE PO SCH (11:06)
[2024-08-02] MEDS: Insulin Aspart (For Pump) 100 UNIT/ML VIAL SQ-PUMP SCH (11:07)
[2024-08-02 11:36] LABS: Glucose,Whole Blood 172 mg/dL (70-110)
[2024-08-02] MEDS: INSULIN ASPART (NovoLOG) 100 UNIT/ML VIAL SQ SCH (12:27)
[2024-08-02 17:00] LABS: Glucose,Whole Blood 160 mg/dL (70-110)
[2024-08-02 20:52] LABS: Glucose,Whole Blood 202 mg/dL (70-110)
[2024-08-02] MEDS: MAGNESIUM OXIDE 400 MG TAB PO SCH (21:27)
[2024-08-03 06:12] LABS: Glucose,Whole Blood 108 mg/dL (70-110)
[2024-08-03 08:20] VITALS: BP 100/59; PULSE 86; RESP 18; TEMP 98.5
[2024-08-03] MEDS: allopurinoL 100 MG TAB PO SCH (08:43)
[2024-08-03 10:59] LABS: Potassium 4.1 mmol/L (3.5-5.1); Sodium 121 mmol/L (137-145)
[2024-08-03 11:00] LABS: African American GFR (CKD) 18 (>60 ml/min/1.73 sqM); Anion Gap 5 mmol/L; Blood Urea Nitrogen 35 mg/dL (7-17); Calcium 7.8 mg/dL (8.4-10.2); Carbon Dioxide 23 mmol/L (22-30); Chloride 93 mmol/L (98-107); Glucose 86 mg/dL (74-99); Non-African American GFR(CKD) 16 (>60 ml/min/1.73 sqM)
[2024-08-03 12:00] LABS: Glucose,Whole Blood 114 mg/dL (70-110)
--- NOTE | 2024-08-03 12:12 | P.DS ---
Providers Date of admission: 08/02/24 13:12 Expected date of discharge: 08/03/24 Attending physician: Miller Bland Consults: 08/01/24 08:51 Consult Physician Routine Consulting Provider: Clifford Alvarez Consult Reason/Comments: medical management Do you want consulting provider notified?: Yes Primary care physician: Lacey Arevalo - Discharge Diagnosis(es) (1) Osteoarthritis of right knee Current Visit: Yes Status: Acute (2) Status post total right knee replacement Current Visit: Yes Status: Acute Hospital Course: This is a 69-year-old female with known history of degenerative arthritis of the right knee. The patient presented for evaluation as an outpatient. After discussion and consideration patient elects to proceed with total knee arthroplasty. The patient is seen preoperatively by Dr. Bland and medically cleared for surgery by their primary care physician. Patient is admitted to [facility] on 08/01/2024 for total knee arthroplasty. The procedure is performed without complication or sequelae. The patient is doing well postoperatively. Labs and vital signs are stable on day of discharge. On day of discharge patient's knee incision is healing well. There is minimal erythema. There is no drainage noted at this time. There is minimal soft tissue swelling to the knee. Patient has full foot and ankle motion without difficulty or pain. Calf is soft and nontender to palpation. Neurovascular status to the right lower extremity is intact. Patient is discharged home in good condition. Please see med rec for accurate list of home medications. Plan - Discharge Summary Discharge Rx Participant: Yes New Discharge Prescriptions: New HYDROcodone/APAP 7.5-325MG [[place] 7.5-325] 1 - 2 tab PO Q6H PRN #32 tab PRN Reason: Pain Sennosides [Senokot] 2 tab PO DAILY PRN #60 tablet PRN Reason: Constipation No Action allopurinoL [Zyloprim] 50 mg PO DAILY Insulin Aspart (For Pump) [NovoLOG (For Pump)] 0.01 unit SQ-PUMP CONTINUOUS Magnesium Oxide 420mg 420 mg PO BID calcitrioL 0.5 mcg PO MOFR Ergocalciferol [Vitamin D2 (1250 Mcg = 62982 Iu)] 1,250 mcg PO DAILY Iron Polysaccharide Complex [Ferrex 150] 150 mg PO MOFR Apixaban [Eliquis] 2.5 mg PO BID Discharge Medication List allopurinoL [Zyloprim] 50 mg PO DAILY 11/16/18 [History] Insulin Aspart (For Pump) [NovoLOG (For Pump)] 0.01 unit SQ-PUMP CONTINUOUS 08/24/19 [History] Iron Polysaccharide Complex [Ferrex 150] 150 mg PO MOFR 03/21/24 [History] Magnesium Oxide 420mg 420 mg PO BID 03/21/24 [History] calcitrioL 0.5 mcg PO MOFR 03/21/24 [History] Apixaban [Eliquis] 2.5 mg PO BID 07/27/24 [History] Ergocalciferol [Vitamin D2 (1250 Mcg = 22781 Iu)] 1,250 mcg PO DAILY 07/27/24 [History] HYDROcodone/APAP 7.5-325MG [[place] 7.5-325] 1 - 2 tab PO Q6H PRN #32 tab 08/01/24 [Rx] Sennosides [Senokot] 2 tab PO DAILY PRN #60 tablet 08/01/24 [Rx] Follow up Appointment(s)/Referral(s): [facility] - 1-2 Days ([facility] will call you to schedule your in home nursing and physical therapy visits. ) Miller Bland DO [Doctor of Osteopathic Medicine] - 2 Weeks Activity/Diet/Wound Care/Special Instructions: Weightbearing as tolerated with a walker. Leave dressing intact. Dressing may be removed by home care nurse or by patient in 7 days. Then change dressing twice daily until follow up. May shower with initial dressing intact and after removal. If dressing become saturated, please remove. Recommend use of compression stockings daily until follow up to help prevent swelling and blood clots. May remove at night before sleeping. Please resume Eliquis. Please follow up with [facility] and call with any questions or concerns, . Discharge Disposition: HOME WITH HOME HEALTH SERVICES
[2024-08-04] MEDS ORDERED: IRON POLYSACCHARIDES COMPLEX 150 MG CAP PO SCH (12:00)
--- NOTE | 2024-08-07 06:09 | P.PN ---
Subjective Progress Note Date: 08/04/24 - Reason for Consult Type 2 diabetes mellitus - History of Present Illness Patient is a 69-year-old female postoperative day 1 right knee arthroplasty phillip ent pain is well-controlled patient functional bleed doing well but retaining urine this is secondary to anesthesia and pain medication she is receiving. Patient had a straight catheterization 1 time today we will continue to do voiding trials she continues to retain urine she may need Garibay catheter. 08/04/2024 Patient is seen and evaluated in follow-up this morning with no acute overnight issues noted. Patient is using incentive spirometer and has been encouraged to take home and continue using at least 10 times every hour while awake. Patient was able to work with physical therapy and does not qualify for rehab and patient will be going home with home care. Patient is voiding with no difficulties and is medically stable for discharge. Patient does have insulin pump and has been instructed to follow-up with primary care provider on discharge this week. Review of systems: Constitutional: No reports of fatigue, fever, or chills Cardiovascular: No reports of chest pain or palpitations Respiratory: No reports of shortness of breath or cough GI: No reports of nausea, vomiting, or diarrhea : No reports of dysuria or retention Neurovascular: No reports of weakness or numbness, reports of some right knee discomfort although improving All medications have been reviewed PHYSICAL EXAMINATION: GENERAL: The patient is alert and oriented x3, not in any acute distress. Well developed, well nourished. Obese, elderly HEENT: Pupils are round and equally reacting to light. EOMI. No scleral icterus. No conjunctival pallor. Normocephalic, atraumatic. No pharyngeal erythema. No th yromegaly. CARDIOVASCULAR: S1 and S2 present. No murmurs, rubs, or gallops. PULMONARY: Chest is clear to auscultation, no wheezing or crackles. ABDOMEN: Soft, nontender, nondistended, normoactive bowel sounds. No palpable organomegaly. MUSCULOSKELETAL: No joint swelling or deformity. EXTREMITIES: No cyanosis, clubbing, or pedal edema. Right knee dressing is dry and intact with minimal swelling and no redness noted NEUROLOGICAL: Gross neurological examination did not reveal any focal deficits. SKIN: No rashes. Assessment and plan Right knee arthroplasty postoperative day 2: Patient is clinically doing well -urinary retention likely secondary to anesthesia, improved and patient is void ing with no Garibay -Chronic kidney disease stage IV -History of DVT in the past but patient is not on anticoagulation but will be discharged on Eliquis 2.5 twice a day -Type 2 diabetes mellitus with diabetic nephropathy patient has an insulin pump which will be resumed. DVT prophylaxis: Eliquis 2.5 mg twice a day Patient is medically stable once cleared by orthopedics. Recommend follow-up with primary care provider on discharge The impression and plan of care has been dictated by Janet Hoyos, Nurse Practitioner as directed. Dr. Kayode MD I have performed a history and examination and MDM of this patient, discussed the same with the dictator, and agree with the dictator's assessment and plan as written ,documented as a scribe. Based on total visit time, I have performed more than 50% of the visit. Objective - Vital Signs Vital signs: Vital Signs Temp 98.5 F 08/03/24 08:00 Pulse 86 08/03/24 08:00 Resp 18 08/03/24 08:00 BP 100/59 08/03/24 08:00 Pulse Ox 94 L 08/03/24 08:00 FiO2 - Labs CBC & Chem 7: 08/02/24 04:52 08/03/24 04:37
== END 2024-08-03 13:47 | disposition home health service (06) | DRG 470 ==
LOC: OR 07:09 → 4SSUR 10:37 → OR 08-02 13:12
PROVIDERS: ADMIT Orthopaedic Surgery; ATTEND Orthopaedic Surgery
PROC: 0SRC0J9 Replacement of Right Knee Joint with Synthetic Substitute, Cemented, Open Approach (ICD-10-PCS; principal; 2024-08-02)
PROC: 0QUD0JZ Supplement Right Patella with Synthetic Substitute, Open Approach (ICD-10-PCS; 2024-08-02)
PROC: 3E0T3BZ Introduction of Anesthetic Agent into Peripheral Nerves and Plexi, Percutaneous Approach (ICD-10-PCS; 2024-08-02)
DX: M17.11 Unilateral primary osteoarthritis, right knee (principal); M87.851 Other osteonecrosis, right femur; N18.4 Chronic kidney disease, stage 4 (severe); M89.751 Major osseous defect, right pelvic region and thigh; E11.22 Type 2 diabetes mellitus with diabetic chronic kidney disease; E78.5 Hyperlipidemia, unspecified; I12.9 Hypertensive chronic kidney disease with stage 1 through stage 4 chronic kidney disease, or unspecified chronic kidney disease; I25.10 Atherosclerotic heart disease of native coronary artery without angina pectoris; Z79.01 Long term (current) use of anticoagulants; Z79.4 Long term (current) use of insulin; Z79.899 Other long term (current) drug therapy; Z86.711 Personal history of pulmonary embolism; Z86.718 Personal history of other venous thrombosis and embolism; Z96.41 Presence of insulin pump (external) (internal)
CPT/HCPCS: 64448; 64999; 80048; 80053; 83036; 85025; 85610; 85730

== ENCOUNTER 2024-08-12 16:12 | Emergency (ER) | payer MEDICARE, BC ==
[2024-08-12 16:32] VITALS: TEMP 97.9
[2024-08-12 16:33] LABS: Glucose,Whole Blood 98 mg/dL (70-110)
--- NOTE | 2024-08-12 16:48 | ED ---
General Adult HPI - General Chief complaint: Nausea/Vomiting/Diarrhea Stated complaint: diarrhea Time Seen by Provider: 08/12/24 16:34 Source: patient Mode of arrival: wheelchair Limitations: no limitations - History of Present Illness Initial comments: 69-year-old female presenting with chief complaint of diarrhea. Patient has been diarrhea ongoing for 1 week since her knee replacement surgery. She states that she has been progressively feeling weaker. 2 days ago she had a fall at home and had to call EMS for an assist up. She is having no abdominal pain. No fevers. No hematochezia or melena. No nausea or vomiting. She has tried taking Imodium which has not helped her symptoms. She took a stool softener for 2 days after her surgery but when she started having the diarrhea she stopped and has not taken it since - Related Data Home Medications Medication Instructions Recorded Confirmed allopurinoL [Zyloprim] 50 mg PO DAILY 11/16/18 08/01/24 Insulin Aspart (For Pump) [NovoLOG 0.01 unit SQ-PUMP CONTINUOUS 08/24/19 08/01/24 (For Pump)] Iron Polysaccharide Complex 150 mg PO MOFR 03/21/24 07/27/24 [Ferrex 150] Magnesium Oxide 420mg 420 mg PO BID 03/21/24 07/27/24 calcitrioL 0.5 mcg PO MOFR 03/21/24 08/01/24 Apixaban [Eliquis] 2.5 mg PO BID 07/27/24 08/01/24 Ergocalciferol [Vitamin D2 (1250 1,250 mcg PO DAILY 07/27/24 07/27/24 Mcg = 77273 Iu)] Previous Rx's Medication Instructions Recorded HYDROcodone/APAP 7.5-325MG [[place] 1 - 2 tab PO Q6H PRN #32 tab 08/01/24 7.5-325] Sennosides [Senokot] 2 tab PO DAILY PRN #60 tablet 08/01/24 Diphenox-Atrop 2.5-0.025 mg 1 tab PO 5XD PRN 3 Days #15 tablet 08/12/24 [Lomotil] Allergies Allergy/AdvReac Type Severity Reaction Status Date / Time azithromycin Allergy Unknown Rash/Hives Verified 08/01/24 07:33 amoxicillin Allergy Rash/Hives Verified 08/01/24 07:33 metronidazole [From Flagyl] Allergy Unknown Verified 08/01/24 07:33 Iodinated Contrast Media AdvReac has KIDNEY Verified 08/01/24 07:33 [Iodinated Contrast- Oral issues and IV Dye] Review of Systems ROS Statement: Those systems with pertinent positive or pertinent negative responses have been documented in the HPI. ROS Other: All systems not noted in ROS Statement are negative. Past Medical History Past Medical History: Coronary Artery Disease (CAD), Diabetes Mellitus, Deep Vein Thrombosis (DVT), Hyperlipidemia, Hypertension, Pulmonary Embolus (PE), Renal Disease, Sleep Apnea/CPAP/BIPAP Additional Past Medical History / Comment(s): Vitamin D Deficency, has insulin pump, elevated liver enzymes, CPAP use. History of Any Multi-Drug Resistant Organisms: None Reported Past Surgical History: Appendectomy, Breast Surgery, Cholecystectomy, Heart Catheterization, Joint Replacement, Orthopedic Surgery Additional Past Surgical History / Comment(s): Breast biopsy, carpal tunnel to right hand, colonoscopy. Past Anesthesia/Blood Transfusion Reactions: No Reported Reaction Past Psychological History: No Psychological Hx Reported Smoking Status: Never smoker Past Alcohol Use History: Occasional Past Drug Use History: None Reported - Past Family History Mother Family Medical History: No Reported History Additional Family Medical History / Comment(s): Heart disease. Father Additional Family Medical History / Comment(s): Heart disease. General Exam Limitations: no limitations General appearance: alert, in no apparent distress Head exam: Present: atraumatic, normocephalic, normal inspection Eye exam: Present: normal appearance, EOMI Neck exam: Present: normal inspection. Absent: meningismus Respiratory exam: Present: normal lung sounds bilaterally. Absent: respiratory distress, wheezes, rales, rhonchi, stridor Cardiovascular Exam: Present: regular rate, normal rhythm, normal heart sounds. Absent: systolic murmur, diastolic murmur, rubs, gallop, clicks GI/Abdominal exam: Present: soft. Absent: distended, tenderness, guarding, rebound, rigid Neurological exam: Present: alert, oriented X3 Psychiatric exam: Present: normal affect, normal mood Skin exam: Present: warm, dry Course Vital Signs 08/12/24 08/12/24 08/12/24 16:26 17:41 18:33 Temperature 97.9 F Pulse Rate 81 69 70 Respiratory 20 16 16 Rate Blood Pressure 146/69 144/50 123/46 O2 Sat by Pulse 98 99 98 Oximetry 08/12/24 08/12/24 20:50 21:08 Temperature Pulse Rate 65 68 Respiratory 18 Rate Blood Pressure 120/52 133/54 O2 Sat by Pulse 97 97 Oximetry Medical Decision Making - Medical Decision Making Was pt. sent in by a medical professional or institution (CORRY Drummond, INSURANCE SALES ASSISTANT, urgent care, hospital, or intermediate...) When possible be specific @ -No Did you speak to anyone other than the patient for history (EMS, parent, family, police, friend...)? What history was obtained from this source @ -No Did you review nursing and triage notes (agree or disagree)? Why? @ -I reviewed and agree with nursing and triage notes Were old charts reviewed (outside hosp., previous admission, EMS record, old EKG, old radiological studies, urgent care reports/EKG's, intermediate records)? Report findings @ -No old charts were reviewed Differential Diagnosis (chest pain, altered mental status, abdominal pain women, abdominal pain men, vaginal bleeding, weakness, fever, dyspnea, syncope, headache, dizziness, GI bleed, back pain, seizure, CVA, palpatations, mental health, musculoskeletal)? @ -Differential includes gastroenteritis, inflammatory bowel disease, IBS, this is not an all-inclusive list EKG interpreted by me (3pts min.). @ -As above X-rays interpreted by me (1pt min.). @ -None done CT interpreted by me (1pt min.). @ -None done U/S interpreted by me (1pt. min.). @ -None done What testing was considered but not performed or refused? (CT, X-rays, U/S, labs)? Why? @ -None What meds were considered but not given or refused? Why? @ -None Did you discuss the management of the patient with other professionals (professionals i.e. CORRY Drummond, INSURANCE SALES ASSISTANT, lab, RT, psych nurse, social service worker, sash sticker, teacher, sergeant of officers, comp field case manager)? Give summary @ -No Was smoking cessation discussed for >3mins.? @ -No Was critical care preformed (if so, how long)? @ -No Were there social determinants of health that impacted care today? How? (Homelessness, low income, unemployed, alcoholism, drug addiction, transportation, low edu. Level, literacy, decrease access to med. care, [place] [facility], rehab)? @ -No Was there de-escalation of care discussed even if they declined (Discuss DNR or withdrawal of care, Hospice)? DNR status @ -No What co-morbidities impacted this encounter? (DM, HTN, Smoking, COPD, CAD, Cancer, CVA, ARF, Chemo, Hep., AIDS, mental health diagnosis, sleep apnea, morbid obesity)? @ -None Was patient admitted / discharged? Hospital course, mention meds given and route, prescriptions, significant lab abnormalities, going to OR and other pertinent info. @ -69-year-old female presenting with chief complaint of diarrhea. Has been ongoing for about a week. Started after her knee replacement surgery. She took 2 days of a stool softener and stopped but the diarrhea is persisting. No abdominal pain. BUN 52 creatinine 2.94, consistent with the patient's baseline. C. difficile testing was ordered but after several hours the patient still could not produce a stool sample. Likely viral in nature. She was given Lomotil here in the ER. Patient is requesting admission, I explained to the patient that given that she is not showing signs of severe dehydration, her vit als are stable, and she is not requiring placement for intermediate I do not have an indication to admit her. My attending Dr. Lynn also spoke to the patient, she is agreeable with trialing Lomotil outpatient and following up with her PCP and surgeon. Follow-up with PCP. Report back to ER with any new or worsening symptoms. Discussed return parameters and answered all questions. Patient conveyed verbal understanding and agreed to the plan. I discussed this case in detail with my attending Dr. Lynn Undiagnosed new problem with uncertain prognosis? @ -No Drug Therapy requiring intensive monitoring for toxicity (Heparin, Nitro, Insulin, Cardizem)? @ -No Were any procedures done? @ -No Diagnosis/symptom? @ -Diarrhea Acute, or Chronic, or Acute on Chronic? @ -Acute Uncomplicated (without systemic symptoms) or Complicated (systemic symptoms)? @ -Uncomplicated Side effects of treatment? @ -No Exacerbation, Progression, or Severe Exacerbation? @ -No Poses a threat to life or bodily function? How? (Chest pain, [place], [place], pneumonia, PE, COPD, DKA, ARF, appy, cholecystitis, CVA, Diverticulitis, Homicidal, Suicidal, threat to staff... and all critical care pts) @ -Low likelihood - Lab Data Result diagrams: 08/12/24 17:15 08/12/24 17:15 Lab Results 08/12/24 08/12/24 08/12/24 Range/Units 16:32 17:15 17:15 WBC 14.1 H (3.8-10.6) k/uL RBC 3.02 L (3.80-5.40) m/uL Hgb 9.6 L D (11.4-16.0) gm/dL Hct 28.3 L (34.0-46.0) % MCV 93.4 (80.0-100.0) fL MCH 31.8 (25.0-35.0) pg MCHC 34.0 (31.0-37.0) g/dL RDW 15.6 H (11.5-15.5) % Plt Count 462 H D (150-450) k/uL MPV 8.0 Neutrophils % (Manual) 76 % Band Neuts % (Manual) 4 % Lymphocytes % (Manual) 10 % Monocytes % (Manual) 8 % Eosinophils % (Manual) 1 % Metamyelocytes % 1 % Myelocytes % 1 % Neutrophils # (Manual) 11.20 H (1.3-7.7) k/uL Lymphocytes # (Manual) 1.41 (1.0-4.8) k/uL Monocytes # (Manual) 1.13 H (0-1.0) k/uL Eosinophils # (Manual) 0.14 (0-0.7) k/uL Metamyelocytes # (Man) 0.14 H (0) k/uL Myelocytes # (Manual) 0.14 H (0) k/uL Nucleated RBCs 0 (0-0) /100 WBC Manual Slide Review Performed RBC Morphology Normal Sodium 138 (137-145) mmol/L Potassium 3.7 (3.5-5.1) mmol/L Chloride 101 (98-107) mmol/L Carbon Dioxide 23 (22-30) mmol/L Anion Gap 14 mmol/L BUN 52 H (7-17) mg/dL Creatinine 2.94 H (0.52-1.04) mg/dL Est GFR (CKD-EPI)AfAm 18 (>60 ml/min/1.73 sqM) Est GFR (CKD-EPI)NonAf 15 (>60 ml/min/1.73 sqM) Glucose 98 (74-99) mg/dL POC Glucose (mg/dL) 98 (70-110) mg/dL POC Glu [employer]of Assembler ID Jesse Desai Calcium 8.4 (8.4-10.2) mg/dL Total Bilirubin 1.4 H (0.2-1.3) mg/dL AST 34 (14-36) U/L ALT 15 (4-34) U/L Alkaline Phosphatase 268 H (38-126) U/L Total Protein 5.4 L (6.3-8.2) g/dL Albumin 3.0 L (3.5-5.0) g/dL Lipase 12 L (23-300) U/L Disposition Clinical Impression: Diarrhea Disposition: HOME SELF-CARE Condition: Good Instructions (If sedation given, give patient instructions): Acute Diarrhea (ED) Additional Instructions: Follow-up with your PCP. Report back to ER with any new or worsening symptoms. Prescriptions: Diphenox-Atrop 2.5-0.025 mg [Lomotil] 1 tab PO 5XD PRN 3 Days #15 tablet PRN Reason: Diarrhea Is patient prescribed a controlled substance at d/c from ED?: Yes When asked, does pt state using other controlled substances?: No If prescribed controlled substance>3 days was MAPS reviewed?: Prescribed <3 Days If opioid is for acute pain is fill amount 7 days or less?: Yes Referrals: Lacey Arevalo DO [Primary Care Provider] - 1-2 days Time of Disposition: 21:22
[2024-08-12] MEDS: DIPHENOX-ATROP 2.5-0.025 MG 1 EACH TAB PO STA (17:30)
[2024-08-12] MEDS: SODIUM CHLORIDE 0.9% 1,000 ML IV STA (17:35)
[2024-08-12 17:56] LABS: HCT 28.3 % (34.0-46.0); HGB 9.6 gm/dL (11.4-16.0); MCH 31.8 pg (25.0-35.0); MCV 93.4 fL (80.0-100.0); Platelet Count 462 k/uL (150-450); RBC 3.02 m/uL (3.80-5.40); RDW 15.6 % (11.5-15.5); WBC 14.1 k/uL (3.8-10.6)
[2024-08-12 17:58] LABS: ALT 15 U/L (4-34); AST 34 U/L (14-36); African American GFR (CKD) 18 (>60 ml/min/1.73 sqM); Alkaline Phosphatase 268 U/L (38-126); Anion Gap 14 mmol/L; Blood Urea Nitrogen 52 mg/dL (7-17); Calcium 8.4 mg/dL (8.4-10.2); Carbon Dioxide 23 mmol/L (22-30); Chloride 101 mmol/L (98-107); Glucose 98 mg/dL (74-99); Lipase 12 U/L (23-300); Non-African American GFR(CKD) 15 (>60 ml/min/1.73 sqM); Sodium 138 mmol/L (137-145); Total Bilirubin 1.4 mg/dL (0.2-1.3); Total Protein 5.4 g/dL (6.3-8.2)
[2024-08-12 17:59] LABS: Potassium 3.7 mmol/L (3.5-5.1)
[2024-08-12 18:27] LABS: Band Neutrophils % 4 %; Eosinophils # (M) 0.14 k/uL (0-0.7); Lymphocytes # (M) 1.41 k/uL (1.0-4.8); Metamyelocytes # (M) 0.14 k/uL (0); Metamyelocytes % 1 %; Monocytes # (M) 1.13 k/uL (0-1.0); Myelocytes # (M) 0.14 k/uL (0); Myelocytes % 1 %; Neutrophils % (M) 76 %; Nucleated Red Blood Cells 0 /100 WBC (0-0); Total Cells Counted 200
[2024-08-12 18:28] LABS: RBC Morphology Normal
[2024-08-12 20:54] VITALS: RESP 18
[2024-08-12 21:09] VITALS: BP 133/54; PULSE 68
[2024-08-12] MEDS: DIPHENOX-ATROP STARTER PACK 8 TAB BTL PO ONE (21:57)
== END 2024-08-12 21:58 | disposition home or self-care (01) ==
LOC: EC 16:12
CPT/HCPCS: 36415; 80053; 83690; 85025; 96360; 99284

== ENCOUNTER 2024-08-15 18:45 | Observation (INO) | payer MEDICARE, BC ==
--- NOTE | 2024-08-15 19:53 | ED ---
General Adult HPI - General Chief complaint: Nausea/Vomiting/Diarrhea Stated complaint: Near Syncope Time Seen by Provider: 08/15/24 19:13 Source: patient, EMS, RN notes reviewed, old records reviewed Mode of arrival: EMS - History of Present Illness Initial comments: 69-year-old female presents with near syncopal episode. Lightheaded. Patient states she is postop right knee replacement on the third of this month. She has been attempting to get around at home. But she does report an issue with chronic diarrhea and states that she has had significant diarrhea over the past several weeks. Today she felt lightheaded and nearly passed out. She denies chest pain or dyspnea. States her knee is healing quite well. No fever. No abdominal pain. - Related Data Home Medications Medication Instructions Recorded Confirmed allopurinoL [Zyloprim] 50 mg PO DAILY 11/16/18 08/15/24 Insulin Aspart (For Pump) [NovoLOG See Protocol SQ-PUMP CONTINUOUS 08/24/19 08/15/24 (For Pump)] Iron Polysaccharide Complex 150 mg PO MOWEFR 03/21/24 08/15/24 [Ferrex 150] Magnesium Oxide 420mg 420 mg PO BID 03/21/24 08/15/24 calcitrioL 0.5 mcg PO MOFR 03/21/24 08/15/24 Apixaban [Eliquis] 2.5 mg PO BID 07/27/24 08/15/24 Ergocalciferol [Vitamin D2 (1250 1,250 mcg PO Q7D 07/27/24 08/15/24 Mcg = 19390 Iu)] Atorvastatin [Lipitor] 40 mg PO HS 08/15/24 08/15/24 Dextrose Chew [Glucose Chew Tab] 16 gm PO DAILY PRN 08/15/24 08/15/24 Insulin Glargine [Lantus Vial] 14 unit SQ DAILY PRN 08/15/24 08/15/24 Previous Rx's Medication Instructions Recorded Diphenox-Atrop 2.5-0.025 mg 1 tab PO 5XD PRN 3 Days #15 tablet 08/12/24 [Lomotil] MDD 8 tabs Allergies Allergy/AdvReac Type Severity Reaction Status Date / Time azithromycin Allergy Unknown Rash/Hives Verified 08/15/24 19:57 amoxicillin Allergy Rash/Hives Verified 08/15/24 19:57 metoprolol Allergy listed on Verified 08/15/24 19:57 va list, patient does not recall Iodinated Contrast Media AdvReac has KIDNEY Verified 08/15/24 19:57 [Iodinated Contrast- Oral issues and IV Dye] metronidazole [From Flagyl] AdvReac Confusion Verified 08/15/24 19:57 Review of Systems ROS Statement: Those systems with pertinent positive or pertinent negative responses have been documented in the HPI. ROS Other: All systems not noted in ROS Statement are negative. Past Medical History Past Medical History: Coronary Artery Disease (CAD), Diabetes Mellitus, Deep Vein Thrombosis (DVT), Hyperlipidemia, Hypertension, Pulmonary Embolus (PE), Renal Disease, Sleep Apnea/CPAP/BIPAP Additional Past Medical History / Comment(s): Vitamin D Deficency, has insulin pump, elevated liver enzymes, CPAP use. History of Any Multi-Drug Resistant Organisms: None Reported Past Surgical History: Appendectomy, Breast Surgery, Cholecystectomy, Heart Catheterization, Joint Replacement, Orthopedic Surgery Additional Past Surgical History / Comment(s): Breast biopsy, carpal tunnel to right hand, colonoscopy. Past Anesthesia/Blood Transfusion Reactions: No Reported Reaction Past Psychological History: No Psychological Hx Reported Smoking Status: Never smoker Past Alcohol Use History: Occasional Past Drug Use History: None Reported - Past Family History Mother Family Medical History: No Reported History Additional Family Medical History / Comment(s): Heart disease. Father Additional Family Medical History / Comment(s): Heart disease. General Exam General appearance: alert, in no apparent distress Head exam: Present: atraumatic, normocephalic Eye exam: Present: normal appearance, PERRL ENT exam: Present: normal exam Neck exam: Present: normal inspection. Absent: tenderness, meningismus Respiratory exam: Present: normal lung sounds bilaterally. Absent: respiratory distress, wheezes Cardiovascular Exam: Present: regular rate, normal rhythm GI/Abdominal exam: Present: soft. Absent: distended, tenderness Extremities exam: Present: other (Right knee incision is clean, appears well- healed, no erythema) Course Vital Signs 08/15/24 08/15/24 08/15/24 18:50 21:00 22:00 Temperature 98.4 F Pulse Rate 73 71 73 Respiratory 16 18 16 Rate Blood Pressure 145/72 136/64 148/64 O2 Sat by Pulse 100 100 100 Oximetry Medical Decision Making - Medical Decision Making Was pt. sent in by a medical professional or institution (CORRY Drummond, NDT INSPECTOR, urgent care, hospital, or longterm...) When possible be specific @ -No Did you speak to anyone other than the patient for history (EMS, parent, family, police, friend...)? What history was obtained from this source @ -No Did you review nursing and triage notes (agree or disagree)? Why? @ -I reviewed and agree with nursing and triage notes Were old charts reviewed (outside hosp., previous admission, EMS record, old EKG, old radiological studies, urgent care reports/EKG's, longterm records)? Report findings @ -No old charts were reviewed Differential Syncope: Valvular disease, hypertrophic cardiomyopathy, pulmonary embolism, tamponade, tachycardia, bradycardia, MO, hypovolemia, hemorrhage, dissection, anemia, intracranial hemorrhage, seizure, hypoglycemia, carbon monoxide poisoning, this is not meant to be an all-inclusive list. EKG interpreted by me (3pts min.). @ -Sinus rhythm rate of 71, [place] interval 149, QRS duration 88, QTc [address] segment elevation. X-rays interpreted by me (1pt min.). @Chest x-ray negative for acute cardiopulmonary findings. CT interpreted by me (1pt min.). @ -None done U/S interpreted by me (1pt. min.). @ -None done What testing was considered but not performed or refused? (CT, X-rays, U/S, labs)? Why? @ -None What meds were considered but not given or refused? Why? @ -None Did you discuss the management of the patient with other professionals (professionals i.e. CORRY Drummond, NDT INSPECTOR, lab, RT, psych nurse, social group worker, ice cream vault worker, teacher, evp and chief operating officer, senior case manager)? Give summary @Janet covering for [facility] Was smoking cessation discussed for >3mins.? @ -No Was critical care preformed (if so, how long)? @ -No Were there social determinants of health that impacted care today? How? (Homelessness, low income, unemployed, alcoholism, drug addiction, transportation, low edu. Level, literacy, decrease access to med. care, retirement, rehab)? @ -No Was there de-escalation of care discussed even if they declined (Discuss DNR or withdrawal of care, Hospice)? DNR status @ -No What co-morbidities impacted this encounter? (DM, HTN, Smoking, COPD, CAD, Cancer, CVA, ARF, Chemo, Hep., AIDS, mental health diagnosis, sleep apnea, morbid obesity)? @ -None Was patient admitted / discharged? Hospital course, mention meds given and route, prescriptions, significant lab abnormalities, going to OR and other pertinent info. @ -69-year-old female presenting with weakness, near syncope, chronic diarrhea. Patient is hemodynamically stable. She is in sinus rhythm. She has lab abnormality including a leukocytosis of 19.4 without fever or patient's source identified at this time. Urinalysis is pending. Patient does have an anemia which is stable from recent prior. She has potassium 3.3 and magnesium 1.3 which are replaced. She will be admitted for hydration, monitoring. Undiagnosed new problem with uncertain prognosis? @ -No Drug Therapy requiring intensive monitoring for toxicity (Heparin, Nitro, Insulin, Cardizem)? @ -No Were any procedures done? @ -No Diagnosis/symptom? @ -. Near syncope, dehydration, chronic diarrhea, electrolyte abnormality Acute, or Chronic, or Acute on Chronic? @Acute on chronic Uncomplicated (without systemic symptoms) or Complicated (systemic symptoms)? @ -Default Side effects of treatment? @ -No Exacerbation, Progression, or Severe Exacerbation? @ -No Poses a threat to life or bodily function? How? (Chest pain, USA, MO, pneumonia, PE, COPD, DKA, ARF, appy, cholecystitis, CVA, Diverticulitis, Homicidal, Suicidal, threat to staff... and all critical care pts) @ -Yes, risk of hypovolemia and electrolyte abnormality - Lab Data Result diagrams: 08/15/24 20:15 08/15/24 20:15 Lab Results 08/15/24 08/15/24 08/15/24 Range/Units 20:15 20:15 20:15 WBC 19.4 H (3.8-10.6) k/uL RBC 3.04 L (3.80-5.40) m/uL Hgb 9.3 L (11.4-16.0) gm/dL Hct 28.8 L (34.0-46.0) % MCV 94.5 (80.0-100.0) fL MCH 30.4 (25.0-35.0) pg MCHC 32.2 (31.0-37.0) g/dL RDW 15.4 (11.5-15.5) % Plt Count 502 H (150-450) k/uL MPV 7.4 Neutrophils % 88 % Lymphocytes % 5 % Monocytes % 6 % Eosinophils % 0 % Basophils % 0 % Neutrophils # 17.0 H (1.3-7.7) k/uL Lymphocytes # 1.0 (1.0-4.8) k/uL Monocytes # 1.1 H (0-1.0) k/uL Eosinophils # 0.0 (0-0.7) k/uL Basophils # 0.1 (0-0.2) k/uL PT 11.6 (10.0-12.5) sec INR 1.1 (<1.2) APTT 20.5 L (22.0-30.0) sec Sodium 137 (137-145) mmol/L Potassium 3.3 L (3.5-5.1) mmol/L Chloride 101 (98-107) mmol/L Carbon Dioxide 21 L (22-30) mmol/L Anion Gap 15 mmol/L BUN 42 H (7-17) mg/dL Creatinine 2.61 H (0.52-1.04) mg/dL Est GFR (CKD-EPI)AfAm 21 (>60 ml/min/1.73 sqM) Est GFR (CKD-EPI)NonAf 18 (>60 ml/min/1.73 sqM) Glucose 91 (74-99) mg/dL Calcium 8.4 (8.4-10.2) mg/dL Magnesium 1.3 L (1.6-2.3) mg/dL Total Bilirubin 1.2 (0.2-1.3) mg/dL AST 22 (14-36) U/L ALT 12 (4-34) U/L Alkaline Phosphatase 198 H (38-126) U/L Troponin I (0.000-0.034) ng/mL Total Protein 5.7 L (6.3-8.2) g/dL Albumin 3.2 L (3.5-5.0) g/dL 08/15/24 Range/Units 20:15 WBC (3.8-10.6) k/uL RBC (3.80-5.40) m/uL Hgb (11.4-16.0) gm/dL Hct (34.0-46.0) % MCV (80.0-100.0) fL MCH (25.0-35.0) pg MCHC (31.0-37.0) g/dL RDW (11.5-15.5) % Plt Count (150-450) k/uL MPV Neutrophils % % Lymphocytes % % Monocytes % % Eosinophils % % Basophils % % Neutrophils # (1.3-7.7) k/uL Lymphocytes # (1.0-4.8) k/uL Monocytes # (0-1.0) k/uL Eosinophils # (0-0.7) k/uL Basophils # (0-0.2) k/uL PT (10.0-12.5) sec INR (<1.2) APTT (22.0-30.0) sec Sodium (137-145) mmol/L Potassium (3.5-5.1) mmol/L Chloride (98-107) mmol/L Carbon Dioxide (22-30) mmol/L Anion Gap mmol/L BUN (7-17) mg/dL Creatinine (0.52-1.04) mg/dL Est GFR (CKD-EPI)AfAm (>60 ml/min/1.73 sqM) Est GFR (CKD-EPI)NonAf (>60 ml/min/1.73 sqM) Glucose (74-99) mg/dL Calcium (8.4-10.2) mg/dL Magnesium (1.6-2.3) mg/dL Total Bilirubin (0.2-1.3) mg/dL AST (14-36) U/L ALT (4-34) U/L Alkaline Phosphatase (38-126) U/L Troponin I <0.012 (0.000-0.034) ng/mL Total Protein (6.3-8.2) g/dL Albumin (3.5-5.0) g/dL Disposition Clinical Impression: Diarrhea, Dehydration, Syncope Disposition: ADMITTED IP TO THIS [facility] Condition: Stable Is patient prescribed a controlled substance at d/c from ED?: No Referrals: Lacey Arevalo DO [Primary Care Provider] - 1-2 days Time of Disposition: 22:29
[2024-08-15] MEDS: SODIUM CHLORIDE 0.9% 1,000 ML IV STA (20:00)
[2024-08-15 20:24] LABS: Basophils # (A) 0.1 k/uL (0-0.2); Basophils % (A) 0 %; Eosinophils % (A) 0 %; HCT 28.8 % (34.0-46.0); HGB 9.3 gm/dL (11.4-16.0); Lymphocytes % (A) 5 %; MCH 30.4 pg (25.0-35.0); MCHC 32.2 g/dL (31.0-37.0); MCV 94.5 fL (80.0-100.0); Mean Platelet Volume 7.4; Monocytes # (A) 1.1 k/uL (0-1.0); Monocytes % (A) 6 %; Neutrophils % (A) 88 %; Platelet Count 502 k/uL (150-450); RBC 3.04 m/uL (3.80-5.40); RDW 15.4 % (11.5-15.5); WBC 19.4 k/uL (3.8-10.6)
[2024-08-15 20:36] LABS: ALT 12 U/L (4-34); AST 22 U/L (14-36); African American GFR (CKD) 21 (>60 ml/min/1.73 sqM); Albumin 3.2 g/dL (3.5-5.0); Alkaline Phosphatase 198 U/L (38-126); Anion Gap 15 mmol/L; Blood Urea Nitrogen 42 mg/dL (7-17); Calcium 8.4 mg/dL (8.4-10.2); Carbon Dioxide 21 mmol/L (22-30); Chloride 101 mmol/L (98-107); Glucose 91 mg/dL (74-99); Magnesium 1.3 mg/dL (1.6-2.3); Non-African American GFR(CKD) 18 (>60 ml/min/1.73 sqM); Potassium 3.3 mmol/L (3.5-5.1); Sodium 137 mmol/L (137-145); Total Bilirubin 1.2 mg/dL (0.2-1.3); Total Protein 5.7 g/dL (6.3-8.2)
[2024-08-15 20:41] LABS: INR 1.1 (<1.2); Prothrombin Time 11.6 sec (10.0-12.5)
[2024-08-15 20:53] LABS: Partial Thromboplastin Time 20.5 sec (22.0-30.0)
--- NOTE | 2024-08-15 21:02 | XR ---
EXAMINATION TYPE: XR chest 2V DATE OF EXAM: 08/15/2024 COMPARISON: 03/21/2024 INDICATION: Syncope TECHNIQUE: Frontal and lateral views of the chest are obtained. FINDINGS: The heart size is normal. The pulmonary vasculature is normal. The lungs are clear. IMPRESSION: 1. No acute pulmonary process. [facility], , 08/15/2024 8:59 PM
[2024-08-15] MEDS ORDERED: NALOXONE 0.4 MG/ML 1 ML VIAL IV PRN (22:26)
[2024-08-15] MEDS ORDERED: ACETAMINOPHEN TAB 325 MG TAB PO PRN (22:26)
[2024-08-15] MEDS: SODIUM CHLORIDE 0.9% 1,000 ML IV SCH (23:00)
[2024-08-15] MEDS: POTASSIUM CHLORIDE 10 MEQ in WATER FOR INJECTION 1 100ML.BAG IVPB SCH (23:00)
[2024-08-15] MEDS: MAGNESIUM SULFATE-D5W PMX 1 GM in DEXTROSE/WATER 1 100ML.BAG IVPB SCH (23:01)
[2024-08-16 04:14] LABS: African American GFR (CKD) 22 (>60 ml/min/1.73 sqM); Blood Urea Nitrogen 38 mg/dL (7-17); Calcium 8.3 mg/dL (8.4-10.2); Chloride 103 mmol/L (98-107); Glucose 83 mg/dL (74-99); Magnesium 1.9 mg/dL (1.6-2.3); Non-African American GFR(CKD) 19 (>60 ml/min/1.73 sqM); Potassium 3.3 mmol/L (3.5-5.1); Sodium 136 mmol/L (137-145)
[2024-08-16 04:15] LABS: Anion Gap 12 mmol/L; Carbon Dioxide 21 mmol/L (22-30)
[2024-08-16] MEDS: APIXABAN 2.5 MG TABLET PO SCH (10:27)
[2024-08-16] MEDS: IRON POLYSACCHARIDES COMPLEX 150 MG CAP PO SCH (11:07)
--- NOTE | 2024-08-16 12:57 | P.HPIM ---
History of Present Illness H&P Date: 08/16/24 History of present illness; patient 69-year-old lady with past medical his significant for chronic kidney disease, diabetes mellitus, hyperlipidemia, recent right knee replacement who presented to the ER because of lightheadedness. Patient stated that she was seen in the ER couple of days ago because of diarrhea. Patient has complained of multiple episodes of loose stools, there is no complaint of any blood in the stools. Denies any nausea or vomiting. Patient is tolerating her diet. Patient was ambulating in her house when she became lightheaded and almost passed out. There was no complaint of chest pain or shortness of breath associated with the episode. Denies any recent fall. Patient felt very weak and decided to come to the ER. Initial lab work done in the ER showed WBC 19.4, hemoglobin 9.3, platelet count 542, sodium 137, potassium 3.3, BUN 42, creatinine 2.61, magnesium 1.3 alk phos 198 EKG done in the ER showed heart rate of 71, no ST segment elevation or depression seen, no T-wave inversions seen. Chest x-ray done in the ER no acute pulmonary process Patient admitted to internal medicine service REVIEW OF SYSTEMS: CONSTITUTIONAL: No fever, no malaise, no fatigue. HEENT: No recent visual problems or hearing problems. Denied any sore throat. CARDIOVASCULAR: No chest pain, orthopnea, PND, no palpitations, no syncope. PULMONARY: As mentioned above GASTROINTESTINAL: As mentioned above NEUROLOGICAL: No headaches, no weakness, no numbness. HEMATOLOGICAL: Denies any bleeding or petechiae. GENITOURINARY: Denies any burning micturition, frequency, or urgency. MUSCULOSKELETAL/RHEUMATOLOGICAL: Denies any joint pain, swelling, or any muscle pain. ENDOCRINE: Denies any polyuria or polydipsia. The rest of the 14-point review of systems is negative. PHYSICAL EXAMINATION: GENERAL: The patient is alert and oriented x3, not in any acute distress. Well developed, well nourished. HEENT: Pupils are round and equally reacting to light. EOMI. No scleral icterus. No conjunctival pallor. Normocephalic, atraumatic. No pharyngeal erythema. No thyromegaly. CARDIOVASCULAR: S1 and S2 present. No murmurs, rubs, or gallops. PULMONARY: Chest is clear to auscultation, no wheezing or crackles. ABDOMEN: Soft, nontender, nondistended, normoactive bowel sounds. No palpable organomegaly. MUSCULOSKELETAL: No joint swelling or deformity. EXTREMITIES: No cyanosis, clubbing, or pedal edema. NEUROLOGICAL: Gross neurological examination did not reveal any focal deficits. SKIN: No rashes. Assessment and plan Hyponatremia Hypomagnesemia Diarrhea CKD stage IV History of DVT Type 2 diabetes mellitus Monitor vital signs Monitor CBC Monitor CMP Continue telemetry monitoring Strict I's and O's Daily weights Continue IV fluids Avoid nephrotoxic agents Replace magnesium Replace potassium. Ordered stool cultures Ordered stool for C. difficile Monitor blood sugar levels, resume home insulin regimen Resume home meds Labs and medication were reviewed.. Continue same treatment. Continue with symptomatic treatment. Resume home medication. Monitor labs and vitals. DVT and GI prophylaxis. Further recommendations as per clinical course of the patient Dictation was produced using [employer] dictation software. please excuse any grammatical, word or spelling errors. Past Medical History Past Medical History: Coronary Artery Disease (CAD), Diabetes Mellitus, Deep Vein Thrombosis (DVT), Hyperlipidemia, Hypertension, Pulmonary Embolus (PE), Renal Disease, Sleep Apnea/CPAP/BIPAP Additional Past Medical History / Comment(s): Vitamin D Deficency, has insulin pump, elevated liver enzymes, CPAP use. History of Any Multi-Drug Resistant Organisms: None Reported Past Surgical History: Appendectomy, Breast Surgery, Cholecystectomy, Heart Catheterization, Joint Replacement, Orthopedic Surgery Additional Past Surgical History / Comment(s): Breast biopsy, carpal tunnel to right hand, colonoscopy. Past Anesthesia/Blood Transfusion Reactions: No Reported Reaction Past Psychological History: No Psychological Hx Reported Smoking Status: Never smoker Past Alcohol Use History: Occasional Past Drug Use History: None Reported - Past Family History Mother Family Medical History: No Reported History Additional Family Medical History / Comment(s): Heart disease. Father Additional Family Medical History / Comment(s): Heart disease. Medications and Allergies Home Medications Medication Instructions Recorded Confirmed Type allopurinoL [Zyloprim] 50 mg PO DAILY 11/16/18 08/15/24 History Insulin Aspart (For Pump) [NovoLOG See Protocol SQ-PUMP CONTINUOUS 08/24/19 08/15/24 History (For Pump)] Iron Polysaccharide Complex 150 mg PO MOWEFR 03/21/24 08/15/24 History [Ferrex 150] Magnesium Oxide 420mg 420 mg PO BID 03/21/24 08/15/24 History calcitrioL 0.5 mcg PO MOFR 03/21/24 08/15/24 History Apixaban [Eliquis] 2.5 mg PO BID 07/27/24 08/15/24 History Ergocalciferol [Vitamin D2 (1250 1,250 mcg PO Q7D 07/27/24 08/15/24 History Mcg = 00215 Iu)] Diphenox-Atrop 2.5-0.025 mg 1 tab PO 5XD PRN 3 Days #15 tablet 08/12/24 08/15/24 Rx [Lomotil] MDD 8 tabs Atorvastatin [Lipitor] 40 mg PO HS 08/15/24 08/15/24 History Dextrose Chew [Glucose Chew Tab] 16 gm PO DAILY PRN 08/15/24 08/15/24 History Insulin Glargine [Lantus Vial] 14 unit SQ DAILY PRN 08/15/24 08/15/24 History Allergies Allergy/AdvReac Type Severity Reaction Status Date / Time azithromycin Allergy Unknown Rash/Hives Verified 08/15/24 19:57 amoxicillin Allergy Rash/Hives Verified 08/15/24 19:57 metoprolol Allergy listed on Verified 08/15/24 19:57 va list, patient does not recall Iodinated Contrast Media AdvReac has KIDNEY Verified 08/15/24 19:57 [Iodinated Contrast- Oral issues and IV Dye] metronidazole [From Flagyl] AdvReac Confusion Verified 08/15/24 19:57 Physical Exam Vitals: Vital Signs Temp Pulse Resp BP Pulse Ox 08/16/24 06:01 98.0 F 74 18 112/53 97 08/16/24 04:06 97.7 F 70 18 114/86 97 08/16/24 01:57 98.1 F 98 08/15/24 23:39 70 18 131/56 08/15/24 23:03 98.0 F 08/15/24 22:00 73 16 148/64 100 08/15/24 21:00 71 18 136/64 100 08/15/24 18:50 98.4 F 73 16 145/72 100 Intake and Output 08/15/24 08/16/24 08/16/24 22:59 06:59 14:59 Other: Weight 83.461 kg Results CBC & Chem 7: 08/15/24 20:15 08/16/24 03:40 Labs: Abnormal Lab Results - Last 24 Hours (Table) 08/15/24 08/15/24 08/15/24 Range/Units 20:15 20:15 20:15 WBC 19.4 H (3.8-10.6) k/uL RBC 3.04 L (3.80-5.40) m/uL Hgb 9.3 L (11.4-16.0) gm/dL Hct 28.8 L (34.0-46.0) % Plt Count 502 H (150-450) k/uL Neutrophils # 17.0 H (1.3-7.7) k/uL Monocytes # 1.1 H (0-1.0) k/uL APTT 20.5 L (22.0-30.0) sec Sodium (137-145) mmol/L Potassium 3.3 L (3.5-5.1) mmol/L Carbon Dioxide 21 L (22-30) mmol/L BUN 42 H (7-17) mg/dL Creatinine 2.61 H (0.52-1.04) mg/dL Calcium (8.4-10.2) mg/dL Magnesium 1.3 L (1.6-2.3) mg/dL Alkaline Phosphatase 198 H (38-126) U/L Total Protein 5.7 L (6.3-8.2) g/dL Albumin 3.2 L (3.5-5.0) g/dL 08/16/24 Range/Units 03:40 WBC (3.8-10.6) k/uL RBC (3.80-5.40) m/uL Hgb (11.4-16.0) gm/dL Hct (34.0-46.0) % Plt Count (150-450) k/uL Neutrophils # (1.3-7.7) k/uL Monocytes # (0-1.0) k/uL APTT (22.0-30.0) sec Sodium 136 L (137-145) mmol/L Potassium 3.3 L (3.5-5.1) mmol/L Carbon Dioxide 21 L (22-30) mmol/L BUN 38 H (7-17) mg/dL Creatinine 2.45 H (0.52-1.04) mg/dL Calcium 8.3 L (8.4-10.2) mg/dL Magnesium (1.6-2.3) mg/dL Alkaline Phosphatase (38-126) U/L Total Protein (6.3-8.2) g/dL Albumin (3.5-5.0) g/dL
[2024-08-16 17:17] LABS: Glucose,Whole Blood 133 mg/dL (70-110)
[2024-08-16 20:14] LABS: Glucose,Whole Blood 176 mg/dL (70-110)
[2024-08-16] MEDS ORDERED: INSPUCOR MISCELLANE PRN (20:41)
[2024-08-16] MEDS ORDERED: INSULIN ASPART (NovoLOG) 100 UNIT/ML VIAL SQ PRN (20:41)
[2024-08-16] MEDS ORDERED: INSULIN PUMP BASAL RATES 1 EACH MISC MISCELLANE PRN (20:41)
[2024-08-16] MEDS: ATORVASTATIN 40 MG TAB PO SCH (20:57)
[2024-08-16] MEDS ORDERED: MAGNESIUM OXIDE 400 MG TAB PO SCH (21:00)
[2024-08-16] MEDS: INSULIN PUMP MEAL BOLUS 1 UNIT MISC MISCELLANE SCH (22:13)
[2024-08-17 01:47] LABS: Glucose,Whole Blood 116 mg/dL (70-110)
[2024-08-17 02:07] LABS: Appearance,Urine Clear (Clear); Bilirubin,Urine Negative (Negative); Blood,Urine Negative (Negative); Color,Urine Colorless; Glucose,Urine (UA) Negative (Negative); Ketones,Urine Negative (Negative); Leukocyte Esterase,Urine Negative (Negative); Nitrite,Urine Negative (Negative); PH, Urine 5.5 (5.0-8.0); Protein,Urine Negative (Negative); Specific Gravity,Urine 1.008 (1.001-1.035); Urobilinogen,Urine <2.0 mg/dL (<2.0)
[2024-08-17 06:13] LABS: Glucose,Whole Blood 86 mg/dL (70-110)
[2024-08-17] MEDS: INSULIN DETEMIR (LEVEMIR) 100 UNIT/ML SYR SQ SCH (06:18)
[2024-08-17] MEDS: allopurinoL 100 MG TAB PO SCH (08:06)
[2024-08-17 10:34] LABS: Basophils % (A) 0 %; Eosinophils # (A) 0.1 k/uL (0-0.7); Eosinophils % (A) 1 %; HCT 30.6 % (34.0-46.0); HGB 9.6 gm/dL (11.4-16.0); Hypochromasia Slight; Lymphocytes % (A) 11 %; MCH 30.5 pg (25.0-35.0); MCHC 31.4 g/dL (31.0-37.0); MCV 97.1 fL (80.0-100.0); Mean Platelet Volume 7.9; Monocytes # (A) 0.7 k/uL (0-1.0); Monocytes % (A) 8 %; Neutrophils # (A) 7.4 k/uL (1.3-7.7); Neutrophils % (A) 78 %; Platelet Count 480 k/uL (150-450); RBC 3.15 m/uL (3.80-5.40); RDW 15.4 % (11.5-15.5); WBC 9.4 k/uL (3.8-10.6)
[2024-08-17 10:44] LABS: ALT 10 U/L (4-34); AST 20 U/L (14-36); African American GFR (CKD) 27 (>60 ml/min/1.73 sqM); Albumin 2.8 g/dL (3.5-5.0); Albumin/Globulin Ratio 1.2; Alkaline Phosphatase 159 U/L (38-126); Anion Gap 8 mmol/L; Blood Urea Nitrogen 28 mg/dL (7-17); Calcium 8.2 mg/dL (8.4-10.2); Carbon Dioxide 23 mmol/L (22-30); Chloride 107 mmol/L (98-107); Globulin 2.4 g/dL; Glucose 83 mg/dL (74-99); Non-African American GFR(CKD) 23 (>60 ml/min/1.73 sqM); Potassium 3.4 mmol/L (3.5-5.1); Sodium 138 mmol/L (137-145); Total Bilirubin 0.8 mg/dL (0.2-1.3); Total Protein 5.2 g/dL (6.3-8.2)
[2024-08-17 14:18] VITALS: BP 124/69; PULSE 66; RESP 17; TEMP 97.5
[2024-08-17] MEDS: POTASSIUM CHLORIDE ER 20 MEQ TAB.ER PO STA (14:43)
[2024-08-21] MEDS ORDERED: ERGOCALCIFEROL 1,250 MCG (50,000 IU) CAPSULE PO SCH (09:00)
--- NOTE | 2024-09-03 15:20 | P.DS ---
Providers Date of admission: 08/15/24 22:27 Expected date of discharge: 08/17/24 Attending physician: Clifford Alvarez Primary care physician: Lacey Arevalo [place] [facility] Course: Discharge diagnoses; Hyponatremia Hypomagnesemia Diarrhea CKD stage IV History of DVT Type 2 diabetes mellitus Hospital course; patient 69-year-old lady with past medical his significant for chronic kidney disease, diabetes mellitus, hyperlipidemia, recent right knee replacement who presented to the ER because of lightheadedness. Patient stated that she was seen in the ER couple of days ago because of diarrhea. Patient has complained of multiple episodes of loose stools, there is no complaint of any blood in the stools. Denies any nausea or vomiting. Patient is tolerating her diet. Patient was ambulating in her house when she became lightheaded and almost passed out. There was no complaint of chest pain or shortness of breath associated with the episode. Denies any recent fall. Patient felt very weak and decided to come to the ER. Initial lab work done in the ER showed WBC 19.4, hemoglobin 9.3, platelet count 542, sodium 137, potassium 3.3, BUN 42, creatinine 2.61, magnesium 1.3 alk phos 198 EKG done in the ER showed heart rate of 71, no ST segment elevation or depression seen, no T-wave inversions seen. Chest x-ray done in the ER no acute pulmonary process Patient admitted to internal medicine service PHYSICAL EXAMINATION: GENERAL: The patient is alert and oriented x3, not in any acute distress. Well developed, well nourished. HEENT: Pupils are round and equally reacting to light. EOMI. No scleral icterus. No conjunctival pallor. Normocephalic, atraumatic. No pharyngeal erythema. No thyromegaly. CARDIOVASCULAR: S1 and S2 present. No murmurs, rubs, or gallops. PULMONARY: Chest is clear to auscultation, no wheezing or crackles. ABDOMEN: Soft, nontender, nondistended, normoactive bowel sounds. No palpable organomegaly. MUSCULOSKELETAL: No joint swelling or deformity. EXTREMITIES: No cyanosis, clubbing, or pedal edema. NEUROLOGICAL: Gross neurological examination did not reveal any focal deficits. SKIN: No rashes. Dictation was produced using [employer] software. please excuse any grammatical, word or spelling errors. Patient Condition at Discharge: Fair Plan - Discharge Summary New Discharge Prescriptions: Continue allopurinoL [Zyloprim] 50 mg PO DAILY Insulin Aspart (For Pump) [NovoLOG (For Pump)] See Protocol SQ-PUMP CONTINUOUS Magnesium Oxide 420mg 420 mg PO BID calcitrioL 0.5 mcg PO MOFR Ergocalciferol [Vitamin D2 (1250 Mcg = 04436 Iu)] 1,250 mcg PO Q7D Insulin Glargine [Lantus Vial] 14 unit SQ DAILY PRN PRN Reason: high blood sugar Dextrose Chew [Glucose Chew Tab] 16 gm PO DAILY PRN PRN Reason: low blood sugar Atorvastatin [Lipitor] 40 mg PO HS Iron Polysaccharide Complex [Ferrex 150] 150 mg PO MOWEFR Apixaban [Eliquis] 2.5 mg PO BID Diphenox-Atrop 2.5-0.025 mg [Lomotil] 1 tab PO 5XD PRN 3 Days #15 tablet MDD 8 tabs PRN Reason: Diarrhea Discharge Medication List allopurinoL [Zyloprim] 50 mg PO DAILY 11/16/18 [History] Insulin Aspart (For Pump) [NovoLOG (For Pump)] See Protocol SQ-PUMP CONTINUOUS 08/24/19 [History] Iron Polysaccharide Complex [Ferrex 150] 150 mg PO MOWEFR 03/21/24 [History] Magnesium Oxide 420mg 420 mg PO BID 03/21/24 [History] calcitrioL 0.5 mcg PO MOFR 03/21/24 [History] Apixaban [Eliquis] 2.5 mg PO BID 07/27/24 [History] Ergocalciferol [Vitamin D2 (1250 Mcg = 67672 Iu)] 1,250 mcg PO Q7D 07/27/24 [History] Diphenox-Atrop 2.5-0.025 mg [Lomotil] 1 tab PO 5XD PRN 3 Days #15 tablet MDD 8 tabs 08/12/24 [Rx] Atorvastatin [Lipitor] 40 mg PO HS 08/15/24 [History] Dextrose Chew [Glucose Chew Tab] 16 gm PO DAILY PRN 08/15/24 [History] Insulin Glargine [Lantus Vial] 14 unit SQ DAILY PRN 08/15/24 [History] Follow up Appointment(s)/Referral(s): Lacey Arevalo DO [Primary Care Provider] - 1-2 days
== END 2024-08-17 17:07 | disposition home health service (06) ==
LOC: EC 18:45 → 6NMEDSUR 22:27
PROVIDERS: ADMIT Hospitalist; ATTEND Hospitalist
DX: R55 Syncope and collapse (principal); K52.9 Noninfective gastroenteritis and colitis, unspecified; E86.0 Dehydration; E83.42 Hypomagnesemia; E87.1 Hypo-osmolality and hyponatremia; I12.9 Hypertensive chronic kidney disease with stage 1 through stage 4 chronic kidney disease, or unspecified chronic kidney disease; N18.4 Chronic kidney disease, stage 4 (severe); E11.22 Type 2 diabetes mellitus with diabetic chronic kidney disease; I25.10 Atherosclerotic heart disease of native coronary artery without angina pectoris; E78.5 Hyperlipidemia, unspecified; G47.30 Sleep apnea, unspecified; Z86.711 Personal history of pulmonary embolism; Z86.718 Personal history of other venous thrombosis and embolism; Z96.41 Presence of insulin pump (external) (internal); Z79.899 Other long term (current) drug therapy; Z79.01 Long term (current) use of anticoagulants; Z79.4 Long term (current) use of insulin; Z88.0 Allergy status to penicillin; Z88.1 Allergy status to other antibiotic agents
CPT/HCPCS: 36415; 71046; 80048; 80053; 81003; 83735; 83993; 84145; 84484; 85025; 85610; 85730; 87045; 87046; 87324; 93005; 96361; 96365; 96366; 96368; 99285

== ENCOUNTER 2024-08-21 17:35 | Inpatient (IN) | payer MEDICARE, BC ==
[2024-08-21 17:48] LABS: Glucose,Whole Blood 50 mg/dL (70-110)
[2024-08-21 18:07] LABS: Basophils % (A) 0 %; Eosinophils # (A) 0.1 k/uL (0-0.7); Eosinophils % (A) 1 %; HCT 29.1 % (34.0-46.0); HGB 9.3 gm/dL (11.4-16.0); Hypochromasia Slight; Lymphocytes # (A) 1.5 k/uL (1.0-4.8); Lymphocytes % (A) 10 %; MCH 30.3 pg (25.0-35.0); MCHC 31.9 g/dL (31.0-37.0); Mean Platelet Volume 7.9; Monocytes # (A) 0.7 k/uL (0-1.0); Monocytes % (A) 5 %; Neutrophils # (A) 11.5 k/uL (1.3-7.7); Neutrophils % (A) 82 %; Platelet Count 365 k/uL (150-450); RBC 3.06 m/uL (3.80-5.40); RDW 15.3 % (11.5-15.5); WBC 13.9 k/uL (3.8-10.6)
[2024-08-21] MEDS: SODIUM CHLORIDE 0.9% 500 ML 500 ML IV STA (18:08)
[2024-08-21] MEDS: SODIUM CHLORIDE 0.9% 1,000 ML IV STA (18:08)
[2024-08-21 18:34] LABS: ALT 9 U/L (4-34); AST 19 U/L (14-36); African American GFR (CKD) 25 (>60 ml/min/1.73 sqM); Albumin 3.1 g/dL (3.5-5.0); Alkaline Phosphatase 153 U/L (38-126); Anion Gap 10 mmol/L; Blood Urea Nitrogen 27 mg/dL (7-17); Calcium 8.4 mg/dL (8.4-10.2); Carbon Dioxide 26 mmol/L (22-30); Chloride 99 mmol/L (98-107); Glucose 58 mg/dL (74-99); Non-African American GFR(CKD) 21 (>60 ml/min/1.73 sqM); Potassium 3.6 mmol/L (3.5-5.1); Sodium 135 mmol/L (137-145); Total Bilirubin 0.8 mg/dL (0.2-1.3); Total Protein 5.4 g/dL (6.3-8.2)
--- NOTE | 2024-08-21 18:52 | XR ---
EXAMINATION TYPE: XR chest 2V DATE OF EXAM: 08/21/2024 COMPARISON: 08/15/2024 HISTORY: Lightheadedness TECHNIQUE: Frontal and lateral views of the chest are obtained. FINDINGS: There is no focal air space opacity, pleural effusion, or pneumothorax seen. The cardiac silhouette size is within normal limits. The osseous structures are intact. IMPRESSION: No acute cardiopulmonary process. [facility], Workstation: [email or web address] 08/21/2024 6:50 PM
--- NOTE | 2024-08-21 18:54 | XR ---
Right knee limited. HISTORY: Knee replacement. Intermittent pain COMPARISON: 08/01/2024 TECHNIQUE: 2 views of the right knee were obtained. Lines: There is a total right knee prosthesis in near anatomic alignment. There is no acute fracture or disl ocation. There is no periprosthetic ostiolysis. Soft tissues unremarkable. IMPRESSION: Satisfactory appearance of the total right knee prosthesis. No acute changes [facility], Workstation: [email or web address] 08/21/2024 6:52 PM
--- NOTE | 2024-08-21 18:56 | XR ---
Right ankle. HISTORY: Pain COMPARISON: None TECHNIQUE: 2 views right ankle obtained. FINDINGS: There is mild osteopenia. There is marked arteriovascular calcification. There is no acute fracture or dislocation. The ankle mortise is intact.. There is no soft tissue swelling. Impression: 1. No acute trauma. 2. Diffuse osteopenia. 3.Marked arteriovascular calcification [facility], Workstation: [id number], 08/21/2024 6:53 PM
[2024-08-21 19:24] LABS: Glucose,Whole Blood 89 mg/dL (70-110)
[2024-08-21] MEDS ORDERED: ACETAMINOPHEN TAB 325 MG TAB PO PRN (19:59)
[2024-08-21] MEDS ORDERED: NALOXONE 0.4 MG/ML 1 ML VIAL IV PRN (19:59)
--- NOTE | 2024-08-21 19:59 | ED ---
General Adult HPI - General Chief complaint: Dizziness Stated complaint: dizziness Time Seen by Provider: 08/21/24 17:40 Source: patient, RN notes reviewed, old records reviewed Mode of arrival: EMS - History of Present Illness Initial comments: Patient is a 69-year-old female presents emergency department for multiple complaints. Complaints all seem to be somewhat chronic. For months, patient has been experiencing lightheadedness episodes when she stands from sitting. Had another 1 of these episodes today. Also complains of acute onset of right knee pain. Also states she felt shaky. Has a history of insulin-dependent diabetes with an insulin pump, recent right knee surgery, is on blood thinners. Currently is asymptomatic while resting on the stretcher. Has been seen here numerous times in the past for similar complaints. Presents for further evalua tion at this time. Recently admitted for diarrhea but patient denies any recent diarrhea to me. Does live by herself and feels like she cannot care for self safely tonight at home. - Related Data Home Medications Medication Instructions Recorded Confirmed allopurinoL [Zyloprim] 50 mg PO DAILY 11/16/18 08/21/24 Insulin Aspart (For Pump) [NovoLOG See Protocol SQ-PUMP CONTINUOUS 08/24/19 08/21/24 (For Pump)] Iron Polysaccharide Complex 150 mg PO MOWEFR 03/21/24 08/21/24 [Ferrex 150] Magnesium Oxide 420mg 420 mg PO BID 03/21/24 08/21/24 Apixaban [Eliquis] 2.5 mg PO BID 07/27/24 08/21/24 Ergocalciferol [Vitamin D2 (1250 1,250 mcg PO Q7D 07/27/24 08/21/24 Mcg = 90690 Iu)] Atorvastatin [Lipitor] 40 mg PO HS 08/15/24 08/21/24 Dextrose Chew [Glucose Chew Tab] 16 gm PO DAILY PRN 08/15/24 08/21/24 Insulin Glargine-Yfgn 14 units SQ DAILY PRN 08/21/24 08/21/24 calcitrioL [Rocaltrol] 0.25 mcg PO MOFR 08/21/24 08/21/24 Allergies Allergy/AdvReac Type Severity Reaction Status Date / Time azithromycin Allergy Unknown Rash/Hives Verified 08/21/24 20:12 amoxicillin Allergy Rash/Hives Verified 08/21/24 20:12 metoprolol Allergy listed on Verified 08/21/24 20:12 va list, patient does not recall Iodinated Contrast Media AdvReac has KIDNEY Verified 08/21/24 20:12 [Iodinated Contrast- Oral issues and IV Dye] metronidazole [From Flagyl] AdvReac Confusion Verified 08/21/24 20:12 Review of Systems ROS Statement: Those systems with pertinent positive or pertinent negative responses have been documented in the HPI. Review of Systems: CONST: Denies fever EYES: Denies blurry vision ENT: Denies nasal congestion C/V: Denies Chest pain RESP: Denies shortness of breath GI: Denies abdominal pain : Denies dysuria SKIN: Denies rash. MSK: Endorses right ankle and right knee pain. Surgery. NEURO: Denies headache ROS Other: All systems not noted in ROS Statement are negative. Past Medical History Past Medical History: Coronary Artery Disease (CAD), Diabetes Mellitus, Deep Vein Thrombosis (DVT), Hyperlipidemia, Hypertension, Pulmonary Embolus (PE), Renal Disease, Sleep Apnea/CPAP/BIPAP Additional Past Medical History / Comment(s): Vitamin D Deficency, has insulin pump, elevated liver enzymes, CPAP use. History of Any Multi-Drug Resistant Organisms: None Reported Past Surgical History: Appendectomy, Breast Surgery, Cholecystectomy, Heart Catheterization, Joint Replacement, Orthopedic Surgery Additional Past Surgical History / Comment(s): Breast biopsy, carpal tunnel to right hand, colonoscopy. Past Anesthesia/Blood Transfusion Reactions: No Reported Reaction Past Psychological History: No Psychological Hx Reported, Depression Smoking Status: Never smoker Past Alcohol Use History: Occasional Past Drug Use History: None Reported - Past Family History Mother Family Medical History: No Reported History Additional Family Medical History / Comment(s): Heart disease. Father Additional Family Medical History / Comment(s): Heart disease. General Exam - General Exam Comments Initial Comments: General: Appears in no acute distress. HEAD: Normal with no signs of head trauma. EYES: PERRLA, EOMI, conjunctiva normal, no discharge. ENT: Hearing grossly intact, normal oropharynx. RESPIRATORY: Clear breath sounds bilaterally. No wheezes, rales, or rhonchi. C/V: Regular rate and rhythm. S1 and S2 auscultated, no edema, peripheral pulses 2+ and intact throughout ABD: Abd is soft, nontender, nondistended EXT: Normal range of motion, no obvious deformity SKIN: Surgical incision of right knee appears within acceptable limits. NEURO: Alert and oriented x 4. Cranial nerves II-XII intact. No focal sensory or strength deficits. Course Vital Signs 08/21/24 08/21/24 17:38 22:04 Temperature 98.7 F Pulse Rate 64 70 Respiratory 18 18 Rate Blood Pressure 146/74 135/71 O2 Sat by Pulse 95 96 Oximetry Medical Decision Making - Medical Decision Making Was pt. sent in by a medical professional or institution (CORRY Drummond, ACCESSIONER, urgent care, hospital, or detention...) When possible be specific @ -No Did you speak to anyone other than the patient for history (EMS, parent, family, police, friend...)? What history was obtained from this source @ -No Did you review nursing and triage notes (agree or disagree)? Why? @ -I reviewed and agree with nursing and triage notes Were old charts reviewed (outside hosp., previous admission, EMS record, old E KG, old radiological studies, urgent care reports/EKG's, detention records)? Report findings @ -Old charts reviewed from recent admission from earlier this month which showed she was admitted for dehydration and diarrhea at that time. Differential Diagnosis (chest pain, altered mental status, abdominal pain women, abdominal pain men, vaginal bleeding, weakness, fever, dyspnea, syncope, headac he, dizziness, GI bleed, back pain, seizure, CVA, palpatations, mental health, musculoskeletal)? @ -Near syncope, dehydration, KATHLEEN, UTI. This list is not all inclusive. EKG interpreted by me (3pts min.). @ -As above X-rays interpreted by me (1pt min.). @ -Chest xray knee and ankle x-ray unremarkable for any obvious acute process. CT interpreted by me (1pt min.). @ -None done U/S interpreted by me (1pt. min.). @ -None done What testing was considered but not performed or refused? (CT, X-rays, U/S, labs)? Why? @ -None What meds were considered but not given or refused? Why? @ -None Did you discuss the management of the patient with other professionals (professionals i.e. , CORRY, ACCESSIONER, lab, RT, psych nurse, social services, moisture tester, teacher, submarine advisory team watch officer, case investigator)? Give summary @ -Discussed with the admitting team, ROMA Boyer of [facility] who accepted the admission. Was smoking cessation discussed for >3mins.? @ -No Was critical care preformed (if so, how long)? @ -No Were there social determinants of health that impacted care today? How? (Homelessness, low income, unemployed, alcoholism, drug addiction, transportation, low edu. Level, literacy, decrease access to med. care, detention, rehab)? @ -No Was there de-escalation of care discussed even if they declined (Discuss DNR or withdrawal of care, Hospice)? DNR status @ -No What co-morbidities impacted this encounter? (DM, HTN, Smoking, COPD, CAD, Cancer, CVA, ARF, Chemo, Hep., AIDS, mental health diagnosis, sleep apnea, mo rbid obesity)? @ -None Was patient admitted / discharged? Hospital course, mention meds given and r oute, prescriptions, significant lab abnormalities, going to OR and other pertinent info. @ -Based on the patient's presentation and physical exam, presents emergency department complaining of near syncopal episode at home where she appears to have been on a regular basis since February of this year. Seems to be orthostatic in nature. Has no other symptoms other than reaggravation of chronic right knee pain for which she recently had surgery approximately 1 month ago. Denies any other acute complaints. We will obtain basic labs. Patient in agreement this plan. Vitals within acceptable limits. She will be given IV fluids. Labs remarkable for chronic anemia within her normal baseline, nonspecific mild leukocytosis of 13.9 which could be reactive. Patient has elevated BUN and creatinine within baseline with a history of CKD. Patient has hypoglycemic to 50. Improved following food. Urinalysis still pending. On reevaluation, I updated the patient. We discussed her hypoglycemia is a primary concern for her. Could explain all of her symptoms. Her glucose monitor with insulin pump is reading 30 points higher than what we obtained. She is concerned going home regarding her knee but also because of the insulin pump. I recommend we watch her overnight she was in agreement this plan. Discussed with the admitting team, ROMA Boyer of [facility] who accepted the admission. Will continue to monitor her blood sugars. Insulin pump turned off for now. Undiagnosed new problem with uncertain prognosis? @ -No Drug Therapy requiring intensive monitoring for toxicity (Heparin, Nitro, Insulin, Cardizem)? @ -No Were any procedures done? @ -No Diagnosis/symptom? @ -Debility, CKD, hypoglycemia, near syncope Acute, or Chronic, or Acute on Chronic? @ -Acute Uncomplicated (without systemic symptoms) or Complicated (systemic symptoms)? @ -Complicated Side effects of treatment? @ -No Exacerbation, Progression, or Severe Exacerbation? @ -No Poses a threat to life or bodily function? How? (Chest pain, [place], [place], pneumonia, PE, COPD, DKA, ARF, appy, cholecystitis, CVA, Diverticulitis, Homicidal, Suicidal, threat to staff... and all critical care pts) @ -Yes - Lab Data Result diagrams: 08/21/24 17:58 08/21/24 17:58 Lab Results 08/21/24 08/21/24 08/21/24 Range/Units 17:46 17:58 17:58 WBC 13.9 H (3.8-10.6) k/uL RBC 3.06 L (3.80-5.40) m/uL Hgb 9.3 L (11.4-16.0) gm/dL Hct 29.1 L (34.0-46.0) % MCV 95.0 (80.0-100.0) fL MCH 30.3 (25.0-35.0) pg MCHC 31.9 (31.0-37.0) g/dL RDW 15.3 (11.5-15.5) % Plt Count 365 (150-450) k/uL MPV 7.9 Neutrophils % 82 % Lymphocytes % 10 % Monocytes % 5 % Eosinophils % 1 % Basophils % 0 % Neutrophils # 11.5 H (1.3-7.7) k/uL Lymphocytes # 1.5 (1.0-4.8) k/uL Monocytes # 0.7 (0-1.0) k/uL Eosinophils # 0.1 (0-0.7) k/uL Basophils # 0.0 (0-0.2) k/uL Hypochromasia Slight Sodium 135 L (137-145) mmol/L Potassium 3.6 (3.5-5.1) mmol/L Chloride 99 (98-107) mmol/L Carbon Dioxide 26 (22-30) mmol/L Anion Gap 10 mmol/L BUN 27 H (7-17) mg/dL Creatinine 2.26 H (0.52-1.04) mg/dL Est GFR (CKD-EPI)AfAm 25 (>60 ml/min/1.73 sqM) Est GFR (CKD-EPI)NonAf 21 (>60 ml/min/1.73 sqM) Glucose 58 L (74-99) mg/dL POC Glucose (mg/dL) 50 L (70-110) mg/dL POC Glu Print Graphic Designer ID Suri Ayala Plasma Lactic Acid Jean Claude (0.7-2.0) mmol/L Calcium 8.4 (8.4-10.2) mg/dL Total Bilirubin 0.8 (0.2-1.3) mg/dL AST 19 (14-36) U/L ALT 9 (4-34) U/L Alkaline Phosphatase 153 H (38-126) U/L Total Protein 5.4 L (6.3-8.2) g/dL Albumin 3.1 L (3.5-5.0) g/dL 08/21/24 08/21/24 Range/Units 17:58 19:23 WBC (3.8-10.6) k/uL RBC (3.80-5.40) m/uL Hgb (11.4-16.0) gm/dL Hct (34.0-46.0) % MCV (80.0-100.0) fL MCH (25.0-35.0) pg MCHC (31.0-37.0) g/dL RDW (11.5-15.5) % Plt Count (150-450) k/uL MPV Neutrophils % % Lymphocytes % % Monocytes % % Eosinophils % % Basophils % % Neutrophils # (1.3-7.7) k/uL Lymphocytes # (1.0-4.8) k/uL Monocytes # (0-1.0) k/uL Eosinophils # (0-0.7) k/uL Basophils # (0-0.2) k/uL Hypochromasia Sodium (137-145) mmol/L Potassium (3.5-5.1) mmol/L Chloride (98-107) mmol/L Carbon Dioxide (22-30) mmol/L Anion Gap mmol/L BUN (7-17) mg/dL Creatinine (0.52-1.04) mg/dL Est GFR (CKD-EPI)AfAm (>60 ml/min/1.73 sqM) Est GFR (CKD-EPI)NonAf (>60 ml/min/1.73 sqM) Glucose (74-99) mg/dL POC Glucose (mg/dL) 89 (70-110) mg/dL POC Glu Print Graphic Designer ID Abel Kaba Plasma Lactic Acid Jean Claude 1.2 (0.7-2.0) mmol/L Calcium (8.4-10.2) mg/dL Total Bilirubin (0.2-1.3) mg/dL AST (14-36) U/L ALT (4-34) U/L Alkaline Phosphatase (38-126) U/L Total Protein (6.3-8.2) g/dL Albumin (3.5-5.0) g/dL - EKG Data -: EKG Interpreted by Me EKG Comments: 12-lead Electrocardiogram Interpretation Note EKG was reviewed and interpreted by myself. 12-lead ECG performed at 1759 is interpreted by me as revealing normal sinus rhythm at a rate of 63 beats per minute. [place] is normal. IA interval is 138 ms, QRS duration is 80 ms, QTc is 382 ms.. There were no ST or T wave abnormalities to suggest myocardial ische hanh or injury. R wave progression across the precordium was satisfactory. By my interpretation this EKG is non-diagnostic for acute ischemia. Disposition Clinical Impression: Hypoglycemia, Debility, CKD (chronic kidney disease), Near syncope Disposition: ADMITTED IP TO THIS HOSP Condition: Stable Time of Disposition: 20:00
[2024-08-21] MEDS: SODIUM CHLORIDE 0.9% 1,000 ML IV SCH (22:03)
[2024-08-21 22:49] LABS: Glucose,Whole Blood 163 mg/dL (70-110)
[2024-08-21] MEDS ORDERED: HYDROmorphone 0.5 MG/0.5 ML SYRINGE IVP PRN (23:46)
[2024-08-22] MEDS ORDERED: HEPARIN SODIUM,PORCINE 5,000 UNIT/ML 1 ML VIAL SQ SCH
[2024-08-22] MEDS: HYDROcodone/APAP 5-325MG 1 EACH TAB PO PRN (00:41)
[2024-08-22 04:07] LABS: Appearance,Urine Clear (Clear); Bilirubin,Urine Negative (Negative); Blood,Urine Negative (Negative); Color,Urine Colorless; Glucose,Urine (UA) Negative (Negative); Ketones,Urine Negative (Negative); Leukocyte Esterase,Urine Negative (Negative); Nitrite,Urine Negative (Negative); Protein,Urine Negative (Negative); Specific Gravity,Urine 1.009 (1.001-1.035); Urobilinogen,Urine <2.0 mg/dL (<2.0)
[2024-08-22 07:17] LABS: Glucose,Whole Blood 84 mg/dL (70-110)
[2024-08-22] MEDS: allopurinoL 100 MG TAB PO SCH (10:45)
[2024-08-22] MEDS: APIXABAN 2.5 MG TABLET PO SCH (10:46)
[2024-08-22 10:57] LABS: HCT 29.7 % (37.2-46.3); HGB 9.6 g/dL (12.0-15.0); MCH 30.8 pg (27.0-32.0); MCHC 32.3 g/dL (32.0-37.0); MCV 95.2 FL (80.0-97.0); Mean Platelet Volume 11.2 FL (9.5-12.2); NRBC Per 100 WBC 0 X 10*3/uL (0.00-0.01); Platelet Count 333 X 10*3/uL (140-440); RBC 3.12 X 10*6/uL (4.10-5.20); RDW 16.5 % (11.5-14.5); WBC 15.32 X 10*3/uL (4.50-10.00)
[2024-08-22 11:22] LABS: ALT 12 U/L (8-44); AST 16 U/L (13-35); Albumin 3.4 g/dL (3.8-4.9); Albumin/Globulin Ratio 1.42 Ratio (1.60-3.17); Alkaline Phosphatase 182 U/L (41-126); BUN/Creat Ratio 10.77 Ratio (12.00-20.00); Blood Urea Nitrogen 23.7 mg/dL (9.0-27.0); Calcium 8.7 mg/dL (8.7-10.3); Carbon Dioxide 23.7 mmol/L (21.6-31.8); Chloride 102 mmol/L (96-109); Globulin 2.4 g/dL (1.6-3.3); Glucose 89 mg/dL (70-110); Potassium 4.5 mmol/L (3.5-5.5); Sodium 142 mmol/L (135-145); Total Bilirubin 0.5 mg/dL (0.3-1.2); Total Protein 5.8 g/dL (6.2-8.2)
[2024-08-22 12:25] LABS: Basophils # (A) 0.08 X 10*3/uL (0.00-0.10); Basophils % (A) 0.5 %; Eosinophils # (A) 0.07 X 10*3/uL (0.04-0.35); Eosinophils % (A) 0.5 %; Lymphocytes # (A) 1.94 X 10*3/uL (0.90-5.00); Lymphocytes % (A) 12.7 %; Monocytes % (A) 10.4 %; Neutrophils % (A) 75.1 %; RBC Morphology Normal (Normal)
[2024-08-22 12:36] LABS: Glucose,Whole Blood 108 mg/dL (70-110)
[2024-08-22] MEDS: SODIUM CHLORIDE 0.9% 1,000 ML IV SCH (15:01)
[2024-08-22] MEDS: PANTOPRAZOLE 40 MG TABLET PO SCH (15:03)
[2024-08-22 16:04] LABS: Glucose,Whole Blood 149 mg/dL (70-110)
[2024-08-22 19:59] LABS: Glucose,Whole Blood 153 mg/dL (70-110)
[2024-08-22] MEDS: ATORVASTATIN 40 MG TAB PO SCH (20:01)
[2024-08-22 20:41] LABS: Glucose,Whole Blood 155 mg/dL (70-110)
[2024-08-22 22:49] LABS: Glucose,Whole Blood 122 mg/dL (70-110)
[2024-08-22] MEDS: HALOPERIDOL LACTATE 5 MG/ML 1 ML VIAL IVP STA (23:50)
[2024-08-23 03:35] LABS: Glucose,Whole Blood 123 mg/dL (70-110)
[2024-08-23 05:44] LABS: Glucose,Whole Blood 106 mg/dL (70-110)
[2024-08-23 08:15] LABS: African American GFR (CKD) 29 (>60 ml/min/1.73 sqM); Anion Gap 6 mmol/L; Blood Urea Nitrogen 20 mg/dL (7-17); Calcium 8.1 mg/dL (8.4-10.2); Carbon Dioxide 27 mmol/L (22-30); Chloride 104 mmol/L (98-107); Glucose 90 mg/dL (74-99); Non-African American GFR(CKD) 25 (>60 ml/min/1.73 sqM); Potassium 3.5 mmol/L (3.5-5.1); Sodium 137 mmol/L (137-145)
[2024-08-23 08:20] LABS: Basophils # (A) 0.1 k/uL (0-0.2); Basophils % (A) 1 %; Eosinophils # (A) 0.1 k/uL (0-0.7); Eosinophils % (A) 1 %; HCT 27.1 % (34.0-46.0); HGB 8.9 gm/dL (11.4-16.0); Lymphocytes # (A) 1.4 k/uL (1.0-4.8); Lymphocytes % (A) 14 %; MCH 31.4 pg (25.0-35.0); MCV 95.1 fL (80.0-100.0); Mean Platelet Volume 9.5; Monocytes % (A) 10 %; Neutrophils # (A) 7.5 k/uL (1.3-7.7); Neutrophils % (A) 74 %; Platelet Count 281 k/uL (150-450); RBC 2.85 m/uL (3.80-5.40); WBC 10.1 k/uL (3.8-10.6)
--- NOTE | 2024-08-23 10:09 | P.CNOR ---
History of Present Illness - HPI Consult date: 08/23/24 History of present illness: This is a 69-year-old female who is admitted for near syncope. Orthopedics is consulted due to recent right total knee arthroplasty on 08/02/2024. Patient states that yesterday she was at home and she felt lightheaded when she got out of bed. Patient states that she has had several episodes of lightheadedness and falls over the last 6 months and at least one fall since her knee surgery. Patient states that she feels like she is recovering slowly from her right total knee. Patient complains of right ankle pain today. X-rays of the right knee and right ankle from the emergency room are reviewed and are negative for any acute fractures or dislocations. Patient denies any fever/chills, chest pain, shortness breath, abdominal pain, numbness, weakness or tingling. Review of Systems See HPI. Past Medical History Past Medical History: Coronary Artery Disease (CAD), Diabetes Mellitus, Deep Vein Thrombosis (DVT), Hyperlipidemia, Hypertension, Pulmonary Embolus (PE), Renal Disease, Sleep Apnea/CPAP/BIPAP Additional Past Medical History / Comment(s): Vitamin D Deficency, has insulin pump, elevated liver enzymes, CPAP use. History of Any Multi-Drug Resistant Organisms: None Reported Past Surgical History: Appendectomy, Breast Surgery, Cholecystectomy, Heart Catheterization, Joint Replacement, Orthopedic Surgery Additional Past Surgical History / Comment(s): Breast biopsy, carpal tunnel to right hand, colonoscopy. Past Anesthesia/Blood Transfusion Reactions: No Reported Reaction Past Psychological History: No Psychological Hx Reported, Depression Smoking Status: Never smoker Past Alcohol Use History: Occasional Additional Past Alcohol Use History / Comment(s): No alcohol in 4 months. Past Drug Use History: None Reported - Past Family History Mother Family Medical History: No Reported History Additional Family Medical History / Comment(s): Heart disease. Father Additional Family Medical History / Comment(s): Heart disease. Medications and Allergies Home Medications Medication Instructions Recorded Confirmed Type allopurinoL [Zyloprim] 50 mg PO DAILY 11/16/18 08/21/24 History Insulin Aspart (For Pump) [NovoLOG See Protocol SQ-PUMP CONTINUOUS 08/24/19 08/21/24 History (For Pump)] Iron Polysaccharide Complex 150 mg PO MOWEFR 03/21/24 08/21/24 History [Ferrex 150] Magnesium Oxide 420mg 420 mg PO BID 03/21/24 08/21/24 History Apixaban [Eliquis] 2.5 mg PO BID 07/27/24 08/21/24 History Ergocalciferol [Vitamin D2 (1250 1,250 mcg PO Q7D 07/27/24 08/21/24 History Mcg = 56799 Iu)] Atorvastatin [Lipitor] 40 mg PO HS 08/15/24 08/21/24 History Dextrose Chew [Glucose Chew Tab] 16 gm PO DAILY PRN 08/15/24 08/21/24 History Insulin Glargine-Yfgn 14 units SQ DAILY PRN 08/21/24 08/21/24 History calcitrioL [Rocaltrol] 0.25 mcg PO MOFR 08/21/24 08/21/24 History Allergies Allergy/AdvReac Type Severity Reaction Status Date / Time azithromycin Allergy Unknown Rash/Hives Verified 08/21/24 20:12 amoxicillin Allergy Rash/Hives Verified 08/21/24 20:12 metoprolol Allergy listed on Verified 08/21/24 20:12 va list, patient does not recall Iodinated Contrast Media AdvReac has KIDNEY Verified 08/21/24 20:12 [Iodinated Contrast- Oral issues and IV Dye] metronidazole [From Flagyl] AdvReac Confusion Verified 08/21/24 20:12 Physical Examination Vital signs are stable. Patient is in no acute distress and is alert and oriented 3. Calf is soft and nontender to palpation. Incision is clean, dry, and intact. Patient is able to flex and extend the right knee without pain or difficulty. Patient has full foot and ankle motion without difficulty. There is no tenderness to palpation or swelling over the right ankle. Sensation intact. Neurovascular status and circulatory status are intact. Results X-rays of the right knee and right ankle from the emergency room are reviewed and are negative for any acute fractures or dislocations. Total knee arthroplasty is in good position and alignment. - Labs Labs: Abnormal Lab Results - Last 24 Hours (Table) 08/22/24 08/22/24 08/22/24 Range/Units 07:48 07:48 16:03 WBC 15.32 H (4.50-10.00) X 10*3/uL RBC 3.12 L (4.10-5.20) X 10*6/uL Hgb 9.6 L (12.0-15.0) g/dL Hct 29.7 L (37.2-46.3) % RDW 16.5 H (11.5-14.5) % Immature Gran # 0.13 H (0.00-0.04) X 10*3/uL Neutrophils # 11.50 H (1.80-7.70) X 10*3/uL Monocytes # 1.60 H (0.20-1.00) X 10*3/uL Anion Gap 16.30 H (4.00-12.00) mmol/L BUN (7-17) mg/dL Creatinine 2.2 H (0.6-1.5) mg/dL Est GFR (CKD-EPI) 23 L (>=60) BUN/Creatinine Ratio 10.77 L (12.00-20.00) Ratio POC Glucose (mg/dL) 149 H (70-110) mg/dL Calcium (8.4-10.2) mg/dL Alkaline Phosphatase 182 H (41-126) U/L Total Protein 5.8 L (6.2-8.2) g/dL Albumin 3.4 L (3.8-4.9) g/dL Albumin/Globulin Ratio 1.42 L (1.60-3.17) Ratio 08/22/24 08/22/24 08/22/24 Range/Units 19:57 20:39 22:48 WBC (4.50-10.00) X 10*3/uL RBC (4.10-5.20) X 10*6/uL Hgb (12.0-15.0) g/dL Hct (37.2-46.3) % RDW (11.5-14.5) % Immature Gran # (0.00-0.04) X 10*3/uL Neutrophils # (1.80-7.70) X 10*3/uL Monocytes # (0.20-1.00) X 10*3/uL Anion Gap (4.00-12.00) mmol/L BUN (7-17) mg/dL Creatinine (0.6-1.5) mg/dL Est GFR (CKD-EPI) (>=60) BUN/Creatinine Ratio (12.00-20.00) Ratio POC Glucose (mg/dL) 153 H 155 H 122 H (70-110) mg/dL Calcium (8.4-10.2) mg/dL Alkaline Phosphatase (41-126) U/L Total Protein (6.2-8.2) g/dL Albumin (3.8-4.9) g/dL Albumin/Globulin Ratio (1.60-3.17) Ratio 08/23/24 08/23/24 08/23/24 Range/Units 03:34 06:21 06:21 WBC (4.50-10.00) X 10*3/uL RBC 2.85 L (4.10-5.20) X 10*6/uL Hgb 8.9 L (12.0-15.0) g/dL Hct 27.1 L (37.2-46.3) % RDW 16.0 H (11.5-14.5) % Immature Gran # (0.00-0.04) X 10*3/uL Neutrophils # (1.80-7.70) X 10*3/uL Monocytes # (0.20-1.00) X 10*3/uL Anion Gap (4.00-12.00) mmol/L BUN 20 H (7-17) mg/dL Creatinine 1.95 H (0.6-1.5) mg/dL Est GFR (CKD-EPI) (>=60) BUN/Creatinine Ratio (12.00-20.00) Ratio POC Glucose (mg/dL) 123 H (70-110) mg/dL Calcium 8.1 L (8.4-10.2) mg/dL Alkaline Phosphatase (41-126) U/L Total Protein (6.2-8.2) g/dL Albumin (3.8-4.9) g/dL Albumin/Globulin Ratio (1.60-3.17) Ratio H & H 08/21/24 08/22/24 08/23/24 Range/Units 17:58 07:48 06:21 Hgb 9.3 L 9.6 L 8.9 L (11.4-16.0) gm/dL Hct 29.1 L 29.7 L 27.1 L (34.0-46.0) % Result Diagrams: 08/23/24 06:21 08/23/24 06:21 Assessment and Plan (1) History of total right knee replacement Current Visit: Yes Status: Acute Code(s): Z96.651 - PRESENCE OF RIGHT ARTIFICIAL KNEE JOINT SNOMED Code(s): 9257137919235 (2) CKD (chronic kidney disease) Current Visit: Yes Status: Acute Code(s): N18.9 - CHRONIC KIDNEY DISEASE, UNSPECIFIED SNOMED Code(s): 226737185 (3) Debility Current Visit: Yes Status: Acute Code(s): R53.81 - OTHER MALAISE SNOMED Code(s): 55882641 (4) Hypoglycemia Current Visit: Yes Status: Acute Code(s): E16.2 - HYPOGLYCEMIA, UNSPECIFIED SNOMED Code(s): 469003249 (5) Near syncope Current Visit: Yes Status: Acute Code(s): R55 - SYNCOPE AND COLLAPSE SNOMED Code(s): 278209514 Plan: #1 Keep incision clean and dry. Patient may weight-bear as tolerated to the right lower extremity. Recommend physical therapy for mobilization once cleared medically. #2 Continue anticoagulation per internal medicine. #3 X-rays are reviewed and are negative for any acute process. Total knee arthroplasty is in good position and alignment. #4 We will continue to follow peripherally.
[2024-08-23 11:26] LABS: Glucose,Whole Blood 107 mg/dL (70-110)
[2024-08-23] MEDS: VANCOMYCIN 125 MG CAPSULE PO SCH (12:36)
[2024-08-23 16:36] LABS: Glucose,Whole Blood 142 mg/dL (70-110)
--- NOTE | 2024-08-23 20:49 | P.CN ---
Psychiatric Consult - . Consult date: 08/23/24 Consult:: 08/23/24 20:46 CONSULTATION Reason for consult: Confusion and hallucinations. identifying Data: The patient is a 69 years old, single, white female, who lives in [place], [place]. Reason for admission: Diarrhea. History of present illness: The patient was brought to the emergency department with c/o Diarrhea. She has come to the hospital several times for dizziness, high blood pressure, diarrhea, and several other complaints. Currently, she has been placed in Observation unit for further work-up. During this evaluation, the patient reported feeling fine. She noted that she has no psychiatric symptoms. She noted that she has never taken psychiatric medications. When asked the reason for her coming to the hospital, the patient stated, diarrhea. When how did she come to the hospital, she stated, I was bought in a private owned vehicle by a friend may be by [employer]. She thinks it was her friend Belkis but not sure.. She did not know know the date she came to the hospital. The patient noted that she has been here so many times that she does remember when she came this time. She knew the date of the month, name of the hospital. She knew the current president but thinks that Mendoza Jacinto was the last President. She could not name any other presidents except Gonzalez and [facility]. When she was asked about her getting confused last night, the patient stated that 4-6 nurses jumped at her. The nursing note indicates that the patient was confused, disoriented, agitated, and thinking that she is locked-up in her room at home. She was very paranoid and combative with nursing staff. She wanted to call the [phone]. She was given Haldol. Following this, one of the nurses was able to calm her down after half an hour of Haldol injection. The nursing staff noted that the patient has had similar episodes during most of her recent hospitalizations. On further evaluation, the patient noted that she has noted getting confused sometimes under stress in the hospital. She is upset because she does not know what is wrong with her. On leading questions denied depression, anxiety, hopelessness, worthlessness, suicidal or homicidal ideations. The patient denied any symptoms of paranoia, or any other delusional thinking, A/V hallucinations. Her friend Dr. Sue Augustine, noted that patient has shown decline in her cognition for past 6 months. She is progressively getting forgetful and repeats the same things again and again. She forgets conversation held in recent past. She gets confused and paranoid easily. She noted that the patient may not be managing her medication right. : History of past psychiatric illness: No other than stated in HPI. No history of suicidal or homicidal ideations or behavior. Past medical history: CAD, DM, DVT, HTN, PE, Renal disease, Sleep apnea. Substance abuse history: None MSE: Alert and attentive Orientation X2. Pleasant and cooperative. Psychomotor activity: Speech: Normal tone, quality, and quantity Mood: Upset and angry Affect: Anxious SI or HI: None Thought content: Mild paranoia. No overt delusional thinking noted. Thought process: Normal Perceptual disturbance: no overt hallucinations noted. Cognition: Episodic confusion, Mild memory deficit noted. Higher cognitive functions intact. Judgement and Insight: Intact Diagnosis: Episodic confusional episodes with psychosis during hospitalization, Possible transient delirium secondary to systemic causes- multifactorial Mild Neurocognitive deficit H/O PTSD Plan: The patient does not meet in-patient criteria for psychiatric admission. Neurology consult to R/O Dementia/treatable causes of Dementia Neuropsychiatric Testing. Medication recommendations: Haldol 1 mg po prn q12hrs.for confusional episode with psychosis. Will sign off the case. Please feel free to call with any questions.
[2024-08-23 21:01] LABS: Glucose,Whole Blood 117 mg/dL (70-110)
[2024-08-24 06:16] LABS: Glucose,Whole Blood 94 mg/dL (70-110)
[2024-08-24 06:41] LABS: Basophils % (A) 1 %; Eosinophils # (A) 0.1 k/uL (0-0.7); Eosinophils % (A) 1 %; HCT 27.7 % (34.0-46.0); HGB 8.4 gm/dL (11.4-16.0); Hypochromasia Moderate; Lymphocytes # (A) 1.5 k/uL (1.0-4.8); Lymphocytes % (A) 24 %; MCH 29.7 pg (25.0-35.0); MCHC 30.4 g/dL (31.0-37.0); MCV 97.7 fL (80.0-100.0); Mean Platelet Volume 8.2; Monocytes # (A) 0.7 k/uL (0-1.0); Monocytes % (A) 10 %; Neutrophils % (A) 61 %; Platelet Count 274 k/uL (150-450); RBC 2.84 m/uL (3.80-5.40); RDW 15.5 % (11.5-15.5); WBC 6.5 k/uL (3.8-10.6)
[2024-08-24 07:03] LABS: ALT 8 U/L (4-34); AST 16 U/L (14-36); African American GFR (CKD) 28 (>60 ml/min/1.73 sqM); Albumin 2.5 g/dL (3.5-5.0); Alkaline Phosphatase 136 U/L (38-126); Anion Gap -1 mmol/L; Blood Urea Nitrogen 17 mg/dL (7-17); Calcium 8.1 mg/dL (8.4-10.2); Carbon Dioxide 30 mmol/L (22-30); Chloride 108 mmol/L (98-107); Glucose 92 mg/dL (74-99); Non-African American GFR(CKD) 24 (>60 ml/min/1.73 sqM); Potassium 3.2 mmol/L (3.5-5.1); Sodium 137 mmol/L (137-145); Total Bilirubin 0.7 mg/dL (0.2-1.3); Total Protein 4.8 g/dL (6.3-8.2)
--- NOTE | 2024-08-24 08:50 | P.CONS ---
History of Present Illness - Reason for Consult Consult date: 08/23/24 Positive C. difficile Requesting physician: Janet Hoyos - Chief Complaint Dizziness and lightheadedness x few days - History of Present Illness Patient is a 69-year-old female with a past medical history significant for coronary disease diabetes mellitus hypertension hyperlipidemia presenting to the hospital 2 days ago for multiple complaints patient has been complaining of diarrhea that apparently has been going on last few weeks patient mention multiple episodes of loose stools denies any blood or mucus in the stool has been complaining of some crampy lower abdominal pain main symptom she came in was explaining lightheadedness especially when she stands from a sitting position but no loss of conscious and no fever on presentation to the hospital p atient was afebrile and no fever have been recorded subsequently patient was not tachycardic hypotensive or hypoxic and only for supplemental oxygen patient did have a white count of 13.9 subsequently went up to 15.32 with a left shift BUN/creatinine has been mildly elevated electrolytes are normal liver enzymes are normal urine has been negative patient did tested positive for C. difficile prompted this consultation Review of Systems Positive point and negatives has been mentioned in the HPI, complete review of systems was performed and all other systems are negative Past Medical History Past Medical History: Coronary Artery Disease (CAD), Diabetes Mellitus, Deep Vein Thrombosis (DVT), Hyperlipidemia, Hypertension, Pulmonary Embolus (PE), Renal Disease, Sleep Apnea/CPAP/BIPAP Additional Past Medical History / Comment(s): Vitamin D Deficency, has insulin pump, elevated liver enzymes, CPAP use. History of Any Multi-Drug Resistant Organisms: None Reported Past Surgical History: Appendectomy, Breast Surgery, Cholecystectomy, Heart Catheterization, Joint Replacement, Orthopedic Surgery Additional Past Surgical History / Comment(s): Breast biopsy, carpal tunnel to right hand, colonoscopy. Past Anesthesia/Blood Transfusion Reactions: No Reported Reaction Past Psychological History: No Psychological Hx Reported, Depression Smoking Status: Never smoker Past Alcohol Use History: Occasional Additional Past Alcohol Use History / Comment(s): No alcohol in 4 months. Past Drug Use History: None Reported - Past Family History Mother Family Medical History: No Reported History Additional Family Medical History / Comment(s): Heart disease. Father Additional Family Medical History / Comment(s): Heart disease. Medications and Allergies Home Medications Medication Instructions Recorded Confirmed Type allopurinoL [Zyloprim] 50 mg PO DAILY 11/16/18 08/21/24 History Insulin Aspart (For Pump) [NovoLOG See Protocol SQ-PUMP CONTINUOUS 08/24/19 08/21/24 History (For Pump)] Iron Polysaccharide Complex 150 mg PO MOWEFR 03/21/24 08/21/24 History [Ferrex 150] Magnesium Oxide 420mg 420 mg PO BID 03/21/24 08/21/24 History Apixaban [Eliquis] 2.5 mg PO BID 07/27/24 08/21/24 History Ergocalciferol [Vitamin D2 (1250 1,250 mcg PO Q7D 07/27/24 08/21/24 History Mcg = 17426 Iu)] Atorvastatin [Lipitor] 40 mg PO HS 08/15/24 08/21/24 History Dextrose Chew [Glucose Chew Tab] 16 gm PO DAILY PRN 08/15/24 08/21/24 History Insulin Glargine-Yfgn 14 units SQ DAILY PRN 08/21/24 08/21/24 History calcitrioL [Rocaltrol] 0.25 mcg PO MOFR 08/21/24 08/21/24 History Allergies Allergy/AdvReac Type Severity Reaction Status Date / Time azithromycin Allergy Unknown Rash/Hives Verified 08/21/24 20:12 amoxicillin Allergy Rash/Hives Verified 08/21/24 20:12 metoprolol Allergy listed on Verified 08/21/24 20:12 va list, patient does not recall Iodinated Contrast Media AdvReac has KIDNEY Verified 08/21/24 20:12 [Iodinated Contrast- Oral issues and IV Dye] metronidazole [From Flagyl] AdvReac Confusion Verified 08/21/24 20:12 Physical Exam Vitals: Vital Signs Temp Pulse Resp BP BP Pulse Ox 08/23/24 14:00 98.2 F 81 16 158/70 98 08/23/24 08:00 96.5 F L 80 16 111/58 08/23/24 02:00 98.5 F 87 132/66 08/22/24 20:00 97.0 F L 98 163/72 Intake and Output 08/22/24 08/23/24 08/23/24 22:59 06:59 14:59 Other: Voiding Method Toilet Toilet # Voids 1 3 Weight 85.275 kg GENERAL DESCRIPTION: Elderly female lying in bed, no distress. No tachypnea or accessory muscle of respiration use. HEENT: Shows Pallor , no scleral icterus. Oral mucous membrane is dry. No pharyngeal erythema or thrush NECK: Trachea central, no thyromegaly. LUNGS: Unlabored breathing. Clear to auscultation anteriorly. No wheeze or crackle. HEART: S1, S2, regular rate and rhythm. No loud murmur ABDOMEN: Soft, no tenderness , guarding or rigidity, no organomegaly EXTREMITIES: No edema of feet. SKIN: No rash, no masses palpable. NEUROLOGICAL: The patient is awake, alert, oriented x3, mood and affect normal. Results CBC & Chem 7: 08/24/24 06:11 08/24/24 06:11 Labs: Abnormal Lab Results - Last 24 Hours (Table) 08/22/24 08/22/24 08/22/24 Range/Units 16:03 19:57 20:39 RBC (3.80-5.40) m/uL Hgb (11.4-16.0) gm/dL Hct (34.0-46.0) % RDW (11.5-15.5) % BUN (7-17) mg/dL Creatinine (0.52-1.04) mg/dL POC Glucose (mg/dL) 149 H 153 H 155 H (70-110) mg/dL Calcium (8.4-10.2) mg/dL Stool Lactoferrin (Negative) 08/22/24 08/23/24 08/23/24 Range/Units 22:48 03:15 03:34 RBC (3.80-5.40) m/uL Hgb (11.4-16.0) gm/dL Hct (34.0-46.0) % RDW (11.5-15.5) % BUN (7-17) mg/dL Creatinine (0.52-1.04) mg/dL POC Glucose (mg/dL) 122 H 123 H (70-110) mg/dL Calcium (8.4-10.2) mg/dL Stool Lactoferrin Positive A (Negative) 08/23/24 08/23/24 Range/Units 06:21 06:21 RBC 2.85 L (3.80-5.40) m/uL Hgb 8.9 L (11.4-16.0) gm/dL Hct 27.1 L (34.0-46.0) % RDW 16.0 H (11.5-15.5) % BUN 20 H (7-17) mg/dL Creatinine 1.95 H (0.52-1.04) mg/dL POC Glucose (mg/dL) (70-110) mg/dL Calcium 8.1 L (8.4-10.2) mg/dL Stool Lactoferrin (Negative) Assessment and Plan (1) C. difficile colitis Current Visit: Yes Status: Acute Code(s): A04.72 - ENTEROCOLITIS D/T CLOSTR IDIUM DIFFICILE, NOT SPCF RECUR SNOMED Code(s): 071734304 Plan: 1patient presented to hospital with dizziness lightheadedness likely from prerenal secondary to diarrhea from C. difficile colitis and this patient did have elevated white count on presentation and has been complaining of multiple loose stools. 2we will continue patient on vancomycin 250 mg p.o. every 6 hours as the patient white count is trending down with it. 3if diarrhea persist will add Questran for symptomatic relief We will follow on clinical condition and cultures to further adjust medication if needed Thank you for this consultation we will follow the patient along with you Dictation was produced using [employer] dictation software. please excuse any grammatical, word or spelling errors. Time with Patient: Greater than 30
[2024-08-24 09:06] VITALS: BP 128/63; PULSE 87; RESP 17; TEMP 98.1
[2024-08-24] MEDS: POTASSIUM CHLORIDE ER 20 MEQ TAB.ER PO SCH (11:12)
[2024-08-24] MEDS: LIDOCAINE 4% PATCH TOPICAL SCH (11:20)
[2024-08-24 13:29] LABS: Glucose,Whole Blood 207 mg/dL (70-110)
--- NOTE | 2024-08-24 14:48 | HP ---
HISTORY AND PHYSICAL CHIEF COMPLAINT: Dizziness, weakness, and diarrhea. HISTORY OF PRESENT ILLNESS: This is a 69-year-old woman with a past medical history of multiple medical problems, was recently admitted with diarrhea, hyponatremia, and multiple medical issues. Currently, the patient has continued diarrhea and also complains of weakness. The patient also had near-syncope and hypoglycemia. The patient is admitted for further evaluation and treatment. There is no history of any fever, rigors, or chills at this time. PAST MEDICAL HISTORY: Reviewed include CAD, DVT, hypertension, pulmonary embolism. Dose and rest of the history is noted. HOME MEDICATIONS: Insulin Lantus 14 units subcu daily p.r.n. and rest of the medications also noted. ALLERGIES: Zithromax, amoxicillin. FAMILY HISTORY: History of heart disease. SOCIAL HISTORY: Occasional alcohol. REVIEW OF SYSTEMS: Fourteen-point review is negative except as mentioned earlier. PHYSICAL EXAMINATION: VITAL SIGNS: Pulse is 82, blood pressure 137/69, respirations 18. HEENT: Conjunctivae normal. Oral mucosa dry. NECK: No JVD. CARDIOVASCULAR: S1, S2. RESPIRATIONS: A few scattered rhonchi. ABDOMEN: Soft. LEGS: No edema. NERVOUS SYSTEM: Diffusely weak. LABORATORY DATA: Noted. ASSESSMENT: 1. Diarrhea, dehydration with weakness with near-syncope. 2. Elevated WBC. 3. History of coronary artery disease. 4. Diabetes mellitus, type 2. 5. History of deep venous thrombosis. 6. Hypertension. 7. Hyperlipidemia. 8. History of pulmonary embolism. 9. Vitamin D deficiency. RECOMMENDATIONS: Recommend to continue current management and continue symptomatic treatment. Otherwise, recommend stool for C difficile, symptomatic treatment, stool culture. Resume home medications and Imodium if C diff is negative. I would also recommend orthostatic vitals. Closely follow. Prognosis guarded. Further recommendations to follow. MMODL / IJN: [id number] /
--- NOTE | 2024-08-24 14:50 | PN ---
PROGRESS NOTE DATE OF SERVICE: 08/23/2024 SUBJECTIVE: This is a 69-year-old woman, who was admitted with significant diarrhea, C difficile positive. The patient also complains of dizziness, weakness, hypoglycemia. No chest pain. No palpitation. The patient had diarrhea 5 times last night. OBJECTIVE: VITAL SIGNS: Pulse 80, blood pressure 111/58, respirations 16. CHEST: Clear to auscultation. CARDIOVASCULAR: S1, S2. ABDOMEN: Soft. NERVOUS SYSTEM: Diffusely weak. LABORATORY DATA: Noted. ASSESSMENT: 1. Acute diarrhea with dehydration with Clostridium difficile colitis. 2. Dizziness. 3. Hypoglycemia. 4. Diabetes mellitus, type 2. 5. History of deep venous thrombosis. 6. History of pulmonary embolism. 7. Multiple complex medical issues. RECOMMENDATIONS: Recommend to continue current medications, continue symptomatic treatment. Otherwise, repeat labs. Continue with vancomycin. Add Questran. Closely follow. Further recommendations to follow. MMODL / IJN: [id number] /
--- NOTE | 2024-08-24 15:18 | P.PN ---
Subjective Progress Note Date: 08/24/24 Principal diagnosis: Reason for follow-up C. difficile colitis Patient is a 69-year-old female with a past medical history significant for coronary disease diabetes mellitus hypertension hyperlipidemia presenting to the hospital with multiple symptoms including diarrhea for few days patient did tested positive for C. difficile colitis. On today's evaluation that is 08/24/2024, the patient continues to be afebrile, the patient is on room air and breathing comfortably, the Pt denies having any chest pain or cough, the patient denies having any abdominal pain no vomiting did mention she did have 2 loose stools this morning no blood or mucus in the stool. Patient white count 6.5, creatinine is 2.01 Objective - Vital Signs Vital signs: Vital Signs Temp 98.1 F 08/24/24 08:00 Pulse 87 08/24/24 08:00 Resp 17 08/24/24 08:00 BP 128/63 08/24/24 08:00 Pulse Ox 95 08/24/24 08:00 FiO2 Intake & Output 08/23/24 08/24/24 08/24/24 18:59 06:59 18:59 Other: Voiding Method Toilet Toilet # Voids 3 3 - Exam GENERAL DESCRIPTION: An elderly female lying in bed in no distress RESPIRATORY SYSTEM: Unlabored breathing , decreased breath sounds at bases HEART: S1 S2 regular rate and rhythm , ABDOMEN: Soft , no tenderness EXTREMITIES: No edema feet - Labs CBC & Chem 7: 08/24/24 06:11 08/24/24 06:11 Labs: Abnormal Lab Results - Last 24 Hours (Table) 08/23/24 08/23/24 08/23/24 Range/Units 03:15 16:34 21:00 RBC (3.80-5.40) m/uL Hgb (11.4-16.0) gm/dL Hct (34.0-46.0) % MCHC (31.0-37.0) g/dL Potassium (3.5-5.1) mmol/L Chloride (98-107) mmol/L Creatinine (0.52-1.04) mg/dL POC Glucose (mg/dL) 142 H 117 H (70-110) mg/dL Calcium (8.4-10.2) mg/dL Alkaline Phosphatase (38-126) U/L Total Protein (6.3-8.2) g/dL Albumin (3.5-5.0) g/dL Stool Lactoferrin Positive A (Negative) 08/24/24 08/24/24 Range/Units 06:11 06:11 RBC 2.84 L (3.80-5.40) m/uL Hgb 8.4 L (11.4-16.0) gm/dL Hct 27.7 L (34.0-46.0) % MCHC 30.4 L (31.0-37.0) g/dL Potassium 3.2 L (3.5-5.1) mmol/L Chloride 108 H (98-107) mmol/L Creatinine 2.01 H (0.52-1.04) mg/dL POC Glucose (mg/dL) (70-110) mg/dL Calcium 8.1 L (8.4-10.2) mg/dL Alkaline Phosphatase 136 H (38-126) U/L Total Protein 4.8 L (6.3-8.2) g/dL Albumin 2.5 L (3.5-5.0) g/dL Stool Lactoferrin (Negative) Assessment and Plan (1) C. difficile colitis Current Visit: Yes Status: Acute Code(s): A04.72 - ENTEROCOLITIS D/T CLOSTRIDIUM DIFFICILE, NOT SPCF RECUR SNOMED Code(s): 323925112 Plan: 1patient presented to hospital with dizziness lightheadedness likely from prerenal secondary to diarrhea from C. difficile colitis and this patient did have elevated white count on presentation and has been complaining of multiple loose stools. 2 patient to continue with oral vancomycin, as been complaining of loose stool this morning will add Questran for symptomatic relief Dictation was produced using [employer] dictation software. please excuse any grammatical, word or spelling errors. Time with Patient: Less than 30
[2024-08-24] MEDS: CHOLESTYRAMINE (WITH SUGAR) 4 GM PACKET PO SCH (15:26)
--- NOTE | 2024-08-29 21:32 | P.DS ---
Providers Date of admission: 08/24/24 09:22 Expected date of discharge: 08/24/24 Attending physician: Clifford Alvarez Consults: 08/22/24 13:57 Consult Physician Urgent Consulting Provider: Miller Bland Consult Reason/Comments: recent right knee replacement Do you want consulting provider notified?: Yes 08/23/24 09:57 Consult Physician Urgent Consulting Provider: Gael Dominguez Consult Reason/Comments: paranoia, hallucinations, PTSD Do you want consulting provider notified?: Yes 08/23/24 11:50 Consult Physician Urgent Consulting Provider: Susanne You Consult Reason/Comments: positive c diff Do you want consulting provider notified?: Yes Primary care physician: Lacey Arevalo Hospital Course: Final Diagnosis Acute kidney injury prerenal secondary to dehydration Acute C. difficile colitis Dizziness and lightheadedness secondary to dehydration Hypoglycemia on admission down secondary to dehydration and diarrhea this is resolved Diabetes mellitus type 2 History of DVT History of pulmonary embolism History of coronary artery disease with prior cardiac catheterization Hypertension Hyperlipidemia GI prophylaxis DVT prophylaxis Discharge Disposition Patient stable for discharge home. Patient will complete a 10-day course of oral vancomycin for the C. difficile infection. At this time she is not having any further episodes of diarrhea. Patient was unable to obtain the vancomycin due to cost and [facility] funds were used to provide this to the patient at no cost. Patient to follow-up with her PCP Dr. Raphael as well as Dr. You. Hospital Course Patient is a 69-year-old female presents emergency department for multiple complaints. Complaints all seem to be somewhat chronic. For months, patient has been experiencing lightheadedness episodes when she stands from sitting. Had another 1 of these episodes today. Also complains of acute onset of right knee pain. Also states she felt shaky. Has a history of insulin-dependent diabetes with an insulin pump, recent right knee surgery, is on blood thinners. Currently is asymptomatic while resting on the stretcher. Has been seen here numerous times in the past for similar complaints. Presents for further evaluation at this time. Recently admitted for diarrhea but patient denies any recent diarrhea to me. Does live by herself and feels like she cannot care for self safely at home. She was admitted to the hospital psychiatric and infectious disease consultation. As well as orthopedics. Chest x-ray on admission reveals no acute cardiopulmonary process. Patient had x-ray of the right knee obtained with satisfactory appearance of the total right knee prosthesis with no acute changes and the wound is approximated and healing well. Orthopedics was consulted for evaluation of this and felt the same with no new recommendations. Patient was found to have acute C. difficile colitis. She was treated with oral vancomycin and her diarrhea has significantly improved. She is no longer complaining of lightheadedness or dizziness. She was also evaluated social work and an APS consult was placed and will follow up on discharge. Please see medication reconciliation for a list of current medications. Thank you for allowing us to participate in the care of this patient. The impression and plan of care has been dictated by Rachel Smith, Nurse Practitioner as directed. Dr. Kayode MD I have performed a history and physical examination and medical decision making of this patient, discussed the same with the dictator, and agree with the dictators assessment and plan as written, documented as a scribe. Based on total visit time, I have performed more than 50% of this visit. Patient Condition at Discharge: Fair Plan - Discharge Summary Discharge Rx Participant: No New Discharge Prescriptions: New Pantoprazole [Protonix] 40 mg PO AC-BRKFST #30 tab Vancomycin HCl [Vancocin HCl] 250 mg PO QID 10 Days #40 cap Vancomycin HCl [Vancocin HCl] 250 mg PO QID 10 Days #40 cap Continue allopurinoL [Zyloprim] 50 mg PO DAILY Insulin Aspart (For Pump) [NovoLOG (For Pump)] See Protocol SQ-PUMP CONTINUOUS Magnesium Oxide 420mg 420 mg PO BID Ergocalciferol [Vitamin D2 (1250 Mcg = 49223 Iu)] 1,250 mcg PO Q7D Dextrose Chew [Glucose Chew Tab] 16 gm PO DAILY PRN PRN Reason: low blood sugar Atorvastatin [Lipitor] 40 mg PO HS calcitrioL [Rocaltrol] 0.25 mcg PO MOFR Insulin Glargine-Yfgn 14 units SQ DAILY PRN PRN Reason: Blood Sugar - High Iron Polysaccharide Complex [Ferrex 150] 150 mg PO MOWEFR Apixaban [Eliquis] 2.5 mg PO BID Discharge Medication List allopurinoL [Zyloprim] 50 mg PO DAILY 11/16/18 [History] Insulin Aspart (For Pump) [NovoLOG (For Pump)] See Protocol SQ-PUMP CONTINUOUS 08/24/19 [History] Iron Polysaccharide Complex [Ferrex 150] 150 mg PO MOWEFR 03/21/24 [History] Magnesium Oxide 420mg 420 mg PO BID 03/21/24 [History] Apixaban [Eliquis] 2.5 mg PO BID 07/27/24 [History] Ergocalciferol [Vitamin D2 (1250 Mcg = 34818 Iu)] 1,250 mcg PO Q7D 07/27/24 [History] Atorvastatin [Lipitor] 40 mg PO HS 08/15/24 [History] Dextrose Chew [Glucose Chew Tab] 16 gm PO DAILY PRN 08/15/24 [History] Insulin Glargine-Yfgn 14 units SQ DAILY PRN 08/21/24 [History] calcitrioL [Rocaltrol] 0.25 mcg PO MOFR 08/21/24 [History] Pantoprazole [Protonix] 40 mg PO AC-BRKFST #30 tab 08/24/24 [Rx] Vancomycin HCl [Vancocin HCl] 250 mg PO QID 10 Days #40 cap 08/25/24 [Rx] Vancomycin HCl [Vancocin HCl] 250 mg PO QID 10 Days #40 cap 08/25/24 [Rx] Follow up Appointment(s)/Referral(s): Lukasz Renee,Home Care [NON-STAFF] - As Needed Lacey Arevalo DO [Primary Care Provider] - 1-2 days Susanne You MD [STAFF PHYSICIAN] - 1 Week Ambulatory/Diagnostic Orders: Basic Metabolic Panel [LAB.AMB] Time Frame: 3 Days, Location: None Selected Patient Instructions/Handouts: Hypoglycemia in a Person with Diabetes (DC), C. Diff (Clostridioides Difficile) Infection (DC), Weakness (DC) Activity/Diet/Wound Care/Special Instructions: Izabela Marquis [facility] P: [phone] Discharge/Stand Alone Forms: Who Do I Call?, Community Resources, Outpatient Counseling Discharge Disposition: HOME WITH HOME HEALTH SERVICES
--- NOTE | 2024-09-07 14:54 | CDI ---
Documentation Clarification Form Date: 09/07/2024 02:44:52 PM From: Yancy Ramirez Phone: Admit Date: 08/24/2024 09:22:00 AM Patient Name: Yumiko Santizo Visit Number: [id number] Discharge Date: 08/24/2024 03:58:00 PM ATTENTION: The Clinical Documentation Specialists (CDI) and [facility] Coding Staff appreciate your assistance in clarifying documentation. Please respond to the clarification below the line at the bottom and electronically sign. The CDI & [facility] Coding staff will review the response and follow-up if needed. Please note: Queries are made part of the Legal Health Record. If you have any questions, please contact the author of this message via ITS. Doctor/Provider: Antwon Headley Unspecified CKD is documented per Consult and Progress Notes. Additional clarification regarding the stage of CKD is requested. History/Risk Factors: 69yo F, KATHLEEN, dehydration, Acute C. difficilecolitis, IDDMII w hypoglycemia, Hx DVT/PE, CAD, HTN, HLD, transientdelirium, CKD w anemia Patient haselevatedBUN and creatinine within baseline with a history ofCKD Clinical Indicators: BUN/CR Ratio: 08/23 10.77 BUN: 08/21 27 08/23 20 CR: 08/21 2.26 08/23 1.95- 2.2 08/24 2.01 GFR: -25 Treatment: monitored Please clarify the stage of the CKD, if known: [ ] CKD 3B [ ] CKD Stage 4 [ x ] CKD Stage 5 [ ] ESRD [ ] Other, please specify [ ] Unable to determine Reference: National Kidney Foundation Stage 1 eGFR = 90 and kidney damage for =3 months Stage 2 eGFR 60-89 and kidney damage for =3 months Stage 3a eGFR 45-59 and kidney damage for =3 months Stage 3b eGFR 30-44 and kidney damage for =3 months Stage 4 eGFR 15-29 r and kidney damage for =3 months Stage 5 eGFR <15 and kidney damage for =3 months (Template last revised: November 2023) MTDD
== END 2024-08-24 15:58 | disposition home health service (06) | DRG 372 ==
LOC: EC 17:35 → 5NMEDONC 20:01 → 1SOBS 08-22 09:16 → OBSVTOIN 08-24 09:22
PROVIDERS: ADMIT Hospitalist; ATTEND Hospitalist
DX: A04.72 Enterocolitis due to Clostridium difficile, not specified as recurrent (principal); E87.1 Hypo-osmolality and hyponatremia; N17.9 Acute kidney failure, unspecified; F05 Delirium due to known physiological condition; N18.5 Chronic kidney disease, stage 5; E11.649 Type 2 diabetes mellitus with hypoglycemia without coma; D63.1 Anemia in chronic kidney disease; E11.22 Type 2 diabetes mellitus with diabetic chronic kidney disease; Z79.4 Long term (current) use of insulin; I12.9 Hypertensive chronic kidney disease with stage 1 through stage 4 chronic kidney disease, or unspecified chronic kidney disease; E86.0 Dehydration; E78.5 Hyperlipidemia, unspecified; I25.10 Atherosclerotic heart disease of native coronary artery without angina pectoris; Z96.41 Presence of insulin pump (external) (internal); Z96.651 Presence of right artificial knee joint; F43.10 Post-traumatic stress disorder, unspecified; E55.9 Vitamin D deficiency, unspecified; R53.81 Other malaise; Z79.01 Long term (current) use of anticoagulants; Z79.899 Other long term (current) drug therapy; Z86.711 Personal history of pulmonary embolism; Z86.718 Personal history of other venous thrombosis and embolism
CPT/HCPCS: 36415; 71046; 80048; 80053; 81003; 83605; 83630; 85025; 87493; 93005; 96360; 96361; 99285

== ENCOUNTER 2024-10-10 11:12 | Day surgery (SDC) | payer MEDICARE, BC ==
[2024-10-09 09:32] VITALS: BMI 28.0
[~2024-10-10 11:12] MED LIST changes: -LIDOCAINE 1% (10MG/ML) FOR IV START INTRADERMA PRN; +MIDAZOLAM 2 MG/2 ML VIAL IV PRN; -TRANEXAMIC 1,000 MG/100ML-NACL 1,000 MG in SALINE 1 100ML.BAG IVPB PRN
[2024-10-10] MEDS: IV FLUID CONTINUATION 1,000 ML IV ONE (11:45)
[2024-10-10 12:17] LABS: Glucose,Whole Blood 98 mg/dL (70-110)
[2024-10-10] MEDS: LACTATED RINGERS 1,000 ML IV SCH (12:18)
[2024-10-10] MEDS: DEXAMETHASONE SOD PHOSPHATE 4 MG/ML 1 ML VIAL IV ONE (12:19)
[2024-10-10] MEDS: ONDANSETRON 4 MG/2 ML VIAL IVP ONE (12:19)
[2024-10-10] MEDS ORDERED: HYDROmorphone 0.5 MG/0.5 ML SYRINGE IVP PRN ×3 (12:49)
[2024-10-10] MEDS ORDERED: ONDANSETRON 4 MG/2 ML VIAL IVP PRN (12:49)
[2024-10-10] MEDS ORDERED: bisacodyL 10 MG SUPP RECTAL PRN (12:49)
[2024-10-10] MEDS ORDERED: MAGNESIUM HYDROXIDE 2,400 MG/30 ML CUP PO PRN (12:49)
[2024-10-10] MEDS ORDERED: NA PHOS,M-B/NA PHOS,DI-BA 133 ML ENEMA RECTAL PRN (12:49)
[2024-10-10] MEDS ORDERED: NALOXONE 0.4 MG/ML 1 ML VIAL IV PRN (12:49)
[2024-10-10] MEDS ORDERED: traMADol 50 MG TAB PO PRN ×2 (12:54)
[2024-10-10] MEDS ORDERED: PROPOFOL 10 MG/ML 20 ML VIAL IV ONE (12:58)
[2024-10-10] MEDS ORDERED: PHENYLEPHRINE 10 MG/ML VIAL ONE (12:58)
[2024-10-10] MEDS ORDERED: LIDOCAINE 1% INJ 10MG/ML (20 ML MDV) ONE (12:58)
[2024-10-10] MEDS ORDERED: GLYCOPYRROLATE 0.2 MG/ML 2 ML VIAL ONE (12:58)
[2024-10-10] MEDS ORDERED: MIDAZOLAM 2 MG/2 ML VIAL ONE (12:58)
[2024-10-10] MEDS ORDERED: fentaNYL (PF) 50 MCG/ML 2 ML AMP ONE (12:58)
[2024-10-10] MEDS: ceFAZolin 1,000 MG in SODIUM CHLORIDE 0.9% 1,000 ML IRRIGATION ONE (13:03)
[2024-10-10] MEDS: SODIUM CHLORIDE 0.9% 50 ML with ceFAZolin 2,000 MG IV ONE (13:22)
--- NOTE | 2024-10-10 13:28 | P.OP ---
Date of Procedure: 10/10/24 Preoperative Diagnosis: Superficial wound infection right knee Postoperative Diagnosis: Superficial wound infection right knee Procedure(s) Performed: 1. Incision and drainage right knee 2. Secondary wound closure right knee Anesthesia: TEQUILA Surgeon: Miller Bland Truck Driver Rubbish Collector #1: Jaclyn Aguirre Estimated Blood Loss (ml): 10 Pathology: other (cultures 2) Condition: stable Disposition: PACU Indications for Procedure: This is a 69. [id number] female that had a total knee arthroplasty performed approximately 8 weeks ago. She continues to have difficulty healing her incision. After discussing the surgical nonsurgical treatment options with her at length, I recommended incision and drainage and secondary closure of her right knee wound. Consent was obtained. Operative Findings: The operative findings are consistent with a superficial wound infection right knee. Did not extend beyond the fascia. Description of Procedure: The patient was seen in the preoperative area, the consent was reviewed and the operative site was marked with a skin marker. The patient verified the procedure and the operative site. An adductor canal pain catheter and an iPACK block were placed by anesthesia in the preoperative area. The patient was then brought to the operating room and positioned on the operating room table in the supine position. Preoperative antibiotics were held until after intraoperative cultures were obtained.. A general anesthetic was administered by the anesthesia department. Care was taken to make sure that all pressure points were adequately padded. A tourniquet was placed on the upper thigh and the lower extremity was prepped with ChloraPrep and draped in usual sterile fashion. A universal time-out was then performed which confirmed the patient's name, surgical site, ALLERGIES, and consent. The lower extremity was then exsanguinated and tourniquet was inflated to 250 mmHg. the incision was then inspected and found to have 2 small areas of wound dehiscence and some mild erythema. There is no gross purulent drainage. The skin edges were excised, and the underlying tissue was inspected. Two Cultures were obtained, then intravenous antibiotics were given.There was some necrotic tissue which was debrided sharply with a knife down to the fascia. It did not extend through the fascia. Wound was then copiously irrigated with antibiotic solution. The knee was again irrigated. The subcutaneous tissue was closed with 3-0 Vicryl and 3-0 monocryl. Exofin glue was used for the skin and placed with the knee in flexion. After the glue had dried, and Optafoam silver impregnated dressing was applied. A lightly compressive dressing was applied using web roll and Elroy wrap. Patient was then transferred to the stretcher and taken to recovery room in stable condition. Sponge and needle counts were correct. The elementary assistant principal CORRY Quijano was required due the complexity surgery and the need for a skilled placement assistant. She assisted in positioning, draping, retraction, and closure of the wound.
[2024-10-10 14:14] LABS: Glucose,Whole Blood 70 mg/dL (70-110)
[2024-10-10] MEDS: HYDROmorphone 0.5 MG/0.5 ML SYRINGE IVP PRN (14:25)
[2024-10-10 14:40] LABS: African American GFR (CKD) 24 (>60 ml/min/1.73 sqM); Anion Gap 8 mmol/L; Blood Urea Nitrogen 25 mg/dL (7-17); Calcium 8.7 mg/dL (8.4-10.2); Carbon Dioxide 24 mmol/L (22-30); Chloride 106 mmol/L (98-107); Glucose 90 mg/dL (74-99); Non-African American GFR(CKD) 21 (>60 ml/min/1.73 sqM); Potassium 3.6 mmol/L (3.5-5.1); Sodium 138 mmol/L (137-145)
[2024-10-10] MEDS: Pre Op ABX Message 1 EACH MISC MISCELLANE ONE (18:31)
[2024-10-10] MEDS: SODIUM CHLORIDE 0.9% 1,000 ML IV SCH (18:38)
[2024-10-10] MEDS ORDERED: INSULIN PUMP BASAL RATES 1 EACH MISC MISCELLANE PRN (20:28)
[2024-10-10] MEDS ORDERED: INSULIN ASPART (NovoLOG) 100 UNIT/ML VIAL SQ PRN (20:28)
[2024-10-10] MEDS: ATORVASTATIN 40 MG TAB PO SCH (21:52)
[2024-10-10] MEDS: ERGOCALCIFEROL 1,250 MCG (50,000 IU) CAPSULE PO SCH (21:52)
[2024-10-10] MEDS: MAGNESIUM OXIDE 400 MG TAB PO SCH (21:52)
[2024-10-10] MEDS: SENNOSIDES-DOCUSATE SODIUM 1 EACH TAB PO SCH (21:54)
[2024-10-10 21:57] LABS: Glucose,Whole Blood 293 mg/dL (70-110)
[2024-10-10 23:25] LABS: Glucose,Whole Blood 269 mg/dL (70-110)
[2024-10-10] MEDS: INSULIN PUMP MEAL BOLUS 1 UNIT MISC MISCELLANE SCH (23:42)
[2024-10-10] MEDS: INSPUCOR MISCELLANE PRN (23:45)
[2024-10-11 06:44] LABS: Glucose,Whole Blood 154 mg/dL (70-110)
--- NOTE | 2024-10-11 07:44 | P.DS ---
Providers Expected date of discharge: 10/11/24 Attending physician: Miller Bland Consults: 10/10/24 12:49 Consult Physician Routine Consulting Provider: Clifford Alvarez Consult Reason/Comments: s/p right knee I&D Do you want consulting provider notified?: Yes Primary care physician: Aamir Díaz - Discharge Diagnosis(es) (1) Open wound of right knee Current Visit: Yes Status: Acute Hospital Course: This is a 69-year-old female who is status post total right knee arthroplasty with some incisional wound complications postoperatively. She was brought back to the OR on 10/10/2024 for irrigation and debridement and closure of the incision. There was no evidence of infection intraoperatively. The patient is stable on postop day #1. There are no new complaints or concerns today. The patient may be discharged to home today in good condition. Patient Condition at Discharge: Good Plan - Discharge Summary Discharge Rx Participant: No New Discharge Prescriptions: New Sennosides [Senokot] 2 tab PO DAILY PRN #60 tablet PRN Reason: Constipation traMADol HCl [Ultram] 50 mg PO Q6H PRN #28 tab PRN Reason: Pain No Action allopurinoL [Zyloprim] 50 mg PO QAM Insulin Aspart (For Pump) [NovoLOG (For Pump)] See Protocol SQ-PUMP CONTINUOUS Magnesium Oxide 420mg 420 mg PO BID Ergocalciferol [Vitamin D2 (1250 Mcg = 26678 Iu)] 1,250 mcg PO Q7D Dextrose Chew [Glucose Chew Tab] 16 gm PO DAILY PRN PRN Reason: low blood sugar Atorvastatin [Lipitor] 40 mg PO HS calcitrioL [Rocaltrol] 0.25 mcg PO MOFR Insulin Glargine-Yfgn 14 units SQ DAILY PRN PRN Reason: Blood Sugar - High Iron Polysaccharide Complex [Ferrex 150] 150 mg PO MOWEFR Apixaban [Eliquis] 2.5 mg PO BID Discharge Medication List allopurinoL [Zyloprim] 50 mg PO QAM 11/16/18 [History] Insulin Aspart (For Pump) [NovoLOG (For Pump)] See Protocol SQ-PUMP CONTINUOUS 08/24/19 [History] Iron Polysaccharide Complex [Ferrex 150] 150 mg PO MOWEFR 03/21/24 [History] Magnesium Oxide 420mg 420 mg PO BID 03/21/24 [History] Apixaban [Eliquis] 2.5 mg PO BID 07/27/24 [History] Ergocalciferol [Vitamin D2 (1250 Mcg = 78814 Iu)] 1,250 mcg PO Q7D 07/27/24 [History] Atorvastatin [Lipitor] 40 mg PO HS 08/15/24 [History] Dextrose Chew [Glucose Chew Tab] 16 gm PO DAILY PRN 08/15/24 [History] Insulin Glargine-Yfgn 14 units SQ DAILY PRN 08/21/24 [History] calcitrioL [Rocaltrol] 0.25 mcg PO MOFR 08/21/24 [History] Sennosides [Senokot] 2 tab PO DAILY PRN #60 tablet 10/10/24 [Rx] traMADol HCl [Ultram] 50 mg PO Q6H PRN #28 tab 10/10/24 [Rx] Follow up Appointment(s)/Referral(s): Miller Bland DO [Doctor of Osteopathic Medicine] - 2 Weeks Activity/Diet/Wound Care/Special Instructions: Weightbearing as tolerated with a walker. Leave dressing intact. Dressing may be removed by home care nurse or by patient in 7 days. Then change dressing twice daily until follow up. May shower with initial dressing intact and after removal. If dressing become saturated, please remove. Recommend use of compression stockings daily until follow up to help prevent swelling and blood clots. May remove at night before sleeping. Please resume Eliquis. Please follow up with [facility] and call with any questions or concerns, . Discharge Disposition: HOME WITH HOME HEALTH SERVICES
[2024-10-11 07:58] VITALS: BP 119/70; PULSE 78; RESP 16; TEMP 97.3
[2024-10-11 08:29] LABS: Basophils # (A) 0.02 X 10*3/uL (0.00-0.10); Basophils % (A) 0.2 %; Eosinophils # (A) 0 X 10*3/uL (0.04-0.35); Eosinophils % (A) 0 %; HCT 26.1 % (37.2-46.3); HGB 8.6 g/dL (12.0-15.0); Lymphocytes # (A) 0.93 X 10*3/uL (0.90-5.00); Lymphocytes % (A) 7.5 %; MCH 30.9 pg (27.0-32.0); MCV 93.9 FL (80.0-97.0); Mean Platelet Volume 12.4 FL (9.5-12.2); Monocytes # (A) 1.12 X 10*3/uL (0.20-1.00); Monocytes % (A) 9.1 %; NRBC Per 100 WBC 0 X 10*3/uL (0.00-0.01); Neutrophils # (A) 10.22 X 10*3/uL (1.80-7.70); Neutrophils % (A) 82.9 %; Platelet Count 218 X 10*3/uL (140-440); RBC 2.78 X 10*6/uL (4.10-5.20); WBC 12.33 X 10*3/uL (4.50-10.00)
[2024-10-11] MEDS: allopurinoL 100 MG TAB PO SCH (08:53)
[2024-10-11] MEDS: APIXABAN 2.5 MG TABLET PO SCH (08:54)
--- NOTE | 2024-10-11 13:54 | P.CONS ---
History of Present Illness - Reason for Consult Consult date: 10/11/24 Medical management, status post right knee arthroplasty - History of Present Illness This is a pleasant 69-year-old female who was admitted under orthopedic services status post right total knee arthroplasty. Patient reports follows with Dr. Díaz in the outpatient setting with a past medical history of A-fib, coronary artery disease, diabetes, previous DVT and PEs, sleep apnea with a CPAP at night, chronic kidney disease. Patient did go to primary care office for presurgical clearance. Patient has been instructed to continue using incentive spirometer and home meds reviewed and resumed as appropriate. Patient has been cleared by orthopedics for discharge and would be going home. Patient instructed to follow-up with primary care provider in the next few weeks. REVIEW OF SYSTEMS: CONSTITUTIONAL: No fever, no malaise, no fatigue. HEENT: No recent visual problems or hearing problems. Denied any sore throat. CARDIOVASCULAR: No chest pain, orthopnea, PND, no palpitations, no syncope. PULMONARY: No shortness of breath, no cough, no hemoptysis. GASTROINTESTINAL: No diarrhea, no nausea, no vomiting, no abdominal pain. NEUROLOGICAL: No headaches, no weakness, no numbness. HEMATOLOGICAL: Denies any bleeding or petechiae. GENITOURINARY: Denies any burning micturition, frequency, or urgency. MUSCULOSKELETAL/RHEUMATOLOGICAL: Denies any joint pain, swelling, reports of right knee discomfort ENDOCRINE: Denies any polyuria or polydipsia. The rest of the 14-point review of systems is negative. PHYSICAL EXAMINATION: GENERAL: The patient is alert and oriented x3, not in any acute distress. Well developed, elderly appearing HEENT: Pupils are round and equally reacting to light. EOMI. No scleral icterus. No conjunctival pallor. Normocephalic, atraumatic. No pharyngeal erythema. No thyromegaly. CARDIOVASCULAR: S1 and S2 muffled PULMONARY: Diminished breath sounds bilaterally otherwise chest is clear to auscultation, no wheezing or crackles. ABDOMEN: Soft, nontender, nondistended, normoactive bowel sounds. No palpable organomegaly. MUSCULOSKELETAL: No joint swelling or deformity. EXTREMITIES: No cyanosis, clubbing, or pedal edema. Right knee surgical dressing is dry and intact with some swelling noted NEUROLOGICAL: Gross neurological examination did not reveal any focal deficits. SKIN: No rashes. Assessment: Status post right total knee arthroplasty Leukocytosis, likely reactive, recommend follow-up labs outpatient. Patient is afebrile with no reports of chest pain, shortness of breath, or urinary discomfort History of sleep apnea uses a CPAP History of previous DVTs and PE History of diabetes History of coronary artery disease History of A-fib maintained on Eliquis GI prophylaxis DVT prophylaxis Full code Plan: Patient admitted under orthopedic services status post 1 day right total knee arthroplasty. Patient worked with physical therapy doing relatively well and will be going home Encouraged incentive spirometer use at least 10 times every hour while awake Home medications reviewed and resumed as appropriate Patient with a mildly elevated white count likely reactive as patient denies any pain or burning or frequency with urination, no shortness of breath and is afebrile. Recommend outpatient labs in the next 1 week Patient is medically stable once cleared by orthopedics Thank you kindly for this consultation. We will continue to follow during hospitalization. The impression and plan of care has been dictated by Janet Hoyos, Nurse Practitioner as directed. Dr. Antonio MD I have performed a history and examination and MDM of this patient, discussed the same with the dictator, and agree with the dictator's assessment and plan as written ,documented as a scribe. Based on total visit time, I have performed more than 50% of the visit. Past Medical History Past Medical History: Atrial Fibrillation, Coronary Artery Disease (CAD), Diabetes Mellitus, Deep Vein Thrombosis (DVT), Hyperlipidemia, Hypertension, Pulmonary Embolus (PE), Renal Disease, Sleep Apnea/CPAP/BIPAP Additional Past Medical History / Comment(s): Vitamin D Deficency, Type II-has insulin pump, elevated liver enzymes, CPAP use. Stage 4 kidney disease-stable. Rt knee- post total knee incision- 3 spots seeping fluid/pus per pt, has bandaid on it. History of Any Multi-Drug Resistant Organisms: None Reported Past Surgical History: Appendectomy, Breast Surgery, Cholecystectomy, Heart Catheterization, Joint Replacement, Orthopedic Surgery Additional Past Surgical History / Comment(s): Breast biopsy, carpal tunnel to right hand, colonoscopy. Total rt knee replacment Jul 2024. Past Anesthesia/Blood Transfusion Reactions: No Reported Reaction Additional Past Anesthesia/Blood Transfusion Reaction / Comm: No hx of blood transfusion to date. Past Psychological History: No Psychological Hx Reported, Depression Smoking Status: Never smoker Past Alcohol Use History: None Reported Additional Past Alcohol Use History / Comment(s): No alcohol in 4 months. Past Drug Use History: None Reported - Past Family History Mother Family Medical History: No Reported History Additional Family Medical History / Comment(s): Heart disease. Father Additional Family Medical History / Comment(s): Heart disease. Medications and Allergies Home Medications Medication Instructions Recorded Confirmed Type allopurinoL [Zyloprim] 50 mg PO QAM 11/16/18 10/09/24 History Insulin Aspart (For Pump) [NovoLOG See Protocol SQ-PUMP CONTINUOUS 08/24/19 10/09/24 History (For Pump)] Iron Polysaccharide Complex 150 mg PO MOWEFR 03/21/24 10/09/24 History [Ferrex 150] Magnesium Oxide 420mg 420 mg PO BID 03/21/24 10/09/24 History Apixaban [Eliquis] 2.5 mg PO BID 07/27/24 10/09/24 History Ergocalciferol [Vitamin D2 (1250 1,250 mcg PO Q7D 07/27/24 10/09/24 History Mcg = 96158 Iu)] Atorvastatin [Lipitor] 40 mg PO HS 08/15/24 10/09/24 History Dextrose Chew [Glucose Chew Tab] 16 gm PO DAILY PRN 08/15/24 10/09/24 History Insulin Glargine-Yfgn 14 units SQ DAILY PRN 08/21/24 10/09/24 History calcitrioL [Rocaltrol] 0.25 mcg PO MOFR 08/21/24 10/09/24 History Sennosides [Senokot] 2 tab PO DAILY PRN #60 tablet 10/10/24 Rx traMADol HCl [Ultram] 50 mg PO Q6H PRN #28 tab 10/10/24 Rx Allergies Allergy/AdvReac Type Severity Reaction Status Date / Time azithromycin Allergy Unknown Rash/Hives Verified 10/09/24 09:08 amoxicillin Allergy Rash/Hives Verified 10/09/24 09:08 metoprolol Allergy listed on Verified 10/09/24 09:08 va list, patient does not recall Iodinated Contrast Media AdvReac has KIDNEY Verified 10/09/24 09:08 [Iodinated Contrast- Oral issues and IV Dye] metronidazole [From Flagyl] AdvReac Confusion Verified 10/09/24 09:08 Physical Exam Vitals: Vital Signs Temp Pulse Pulse Resp BP Pulse Ox 10/11/24 07:56 97.3 F L 78 16 119/70 98 10/11/24 01:47 98.1 F 57 L 17 116/62 10/10/24 19:26 97.4 F L 68 17 99/58 98 10/10/24 18:25 98.1 F 67 16 124/72 99 10/10/24 17:30 70 16 118/66 99 10/10/24 17:00 70 16 103/61 99 10/10/24 16:32 68 16 100/64 100 10/10/24 16:00 66 16 102/64 100 10/10/24 15:45 67 16 100/50 100 10/10/24 15:30 67 16 100/52 100 10/10/24 15:15 66 16 107/52 100 10/10/24 15:02 69 16 109/54 100 10/10/24 14:46 68 16 107/54 100 10/10/24 14:30 66 16 102/45 100 10/10/24 14:16 80 16 106/51 100 10/10/24 14:01 72 18 99/47 100 Intake and Output 10/10/24 10/11/24 10/11/24 22:59 06:59 14:59 Output Total 1300 Balance -1300 Output: Urine 1300 Other: # Voids 1 Results CBC & Chem 7: 10/11/24 03:08 10/10/24 12:15 Labs: Abnormal Lab Results - Last 24 Hours (Table) 10/10/24 10/10/24 10/10/24 Range/Units 12:15 21:55 23:24 WBC (4.50-10.00) X 10*3/uL RBC (4.10-5.20) X 10*6/uL Hgb (12.0-15.0) g/dL Hct (37.2-46.3) % RDW (11.5-14.5) % MPV (9.5-12.2) FL Neutrophils # (1.80-7.70) X 10*3/uL Monocytes # (0.20-1.00) X 10*3/uL Eosinophils # (0.04-0.35) X 10*3/uL BUN 25 H (7-17) mg/dL Creatinine 2.27 H (0.52-1.04) mg/dL POC Glucose (mg/dL) 293 H 269 H (70-110) mg/dL 10/11/24 10/11/24 Range/Units 03:08 06:43 WBC 12.33 H (4.50-10.00) X 10*3/uL RBC 2.78 L (4.10-5.20) X 10*6/uL Hgb 8.6 L (12.0-15.0) g/dL Hct 26.1 L (37.2-46.3) % RDW 15.0 H (11.5-14.5) % MPV 12.4 H (9.5-12.2) FL Neutrophils # 10.22 H (1.80-7.70) X 10*3/uL Monocytes # 1.12 H (0.20-1.00) X 10*3/uL Eosinophils # 0 L (0.04-0.35) X 10*3/uL BUN (7-17) mg/dL Creatinine (0.52-1.04) mg/dL POC Glucose (mg/dL) 154 H (70-110) mg/dL
[2024-10-11] MEDS ORDERED: IRON POLYSACCHARIDES COMPLEX 150 MG CAP PO SCH (20:13)
== END 2024-10-11 11:06 | disposition home health service (06) ==
LOC: OR 11:12 → 4SSUR 13:44 → OR 10-11 11:06
PROVIDERS: ATTEND Orthopaedic Surgery
DX: T81.31XA Disruption of external operation (surgical) wound, not elsewhere classified, initial encounter (principal); E11.22 Type 2 diabetes mellitus with diabetic chronic kidney disease; Z96.41 Presence of insulin pump (external) (internal); I12.9 Hypertensive chronic kidney disease with stage 1 through stage 4 chronic kidney disease, or unspecified chronic kidney disease; N18.4 Chronic kidney disease, stage 4 (severe); I48.91 Unspecified atrial fibrillation; I25.10 Atherosclerotic heart disease of native coronary artery without angina pectoris; E78.49 Other hyperlipidemia; G47.30 Sleep apnea, unspecified; J44.9 Chronic obstructive pulmonary disease, unspecified; M17.11 Unilateral primary osteoarthritis, right knee; M87.059 Idiopathic aseptic necrosis of unspecified femur; Z79.01 Long term (current) use of anticoagulants; Z79.899 Other long term (current) drug therapy; Z86.718 Personal history of other venous thrombosis and embolism; Z86.711 Personal history of pulmonary embolism; Z96.651 Presence of right artificial knee joint; Z88.0 Allergy status to penicillin; Z88.8 Allergy status to other drugs, medicaments and biological substances; Z88.1 Allergy status to other antibiotic agents; Z91.041 Radiographic dye allergy status
CPT/HCPCS: 11042; 13160; 97161; 97165; 80048; 85025; 87070; 87205; 87075; J2250; J1100; J0690 ×3; J2405; J2003; J3010; J2704; J1171; J2371; J1596